=== PATIENT | female | born 1950 | race Caucasian/White ===

== ENCOUNTER 2020-09-24 10:17 | Outpatient (REF) | payer MEDICARE, SELFPAY ==
[2020-09-24 11:06] LABS: Glucose Urine UA NEG (NEG); Leukocyte Esterase Urine NEG (NEG); Nitrite Urine NEG (NEG); PH 6.5 (5.0-8.0); Specific Gravity - Urine <= 1.005 (1.005-1.025); Urine Blood NEG (NEG); Urine Ketones NEG (NEG); Urine Protein NEG (NEG-TRACE)
[2020-09-24 11:16] LABS: Appearance Urine CLOUDY; Color Urine YELLOW
== END 2020-09-24 10:18 | disposition home or self-care (01) ==
LOC: HO.LAB 10:17
PROVIDERS: PCP Internal Medicine; Visit Provider Internal Medicine
DX: Z13.89 Encounter for screening for other disorder (principal)
CPT/HCPCS: 81003

== ENCOUNTER 2020-09-24 12:41 | Emergency (ER) | payer MEDICARE, SELFPAY ==
--- NOTE | 2020-09-24 | ECG_ITS ---
Test Reason : CHEST PAIN Blood Pressure : / mmHG Vent. Rate : 081 BPM Atrial Rate : 081 BPM P-R Int : 122 ms QRS Dur : 084 ms QT Int : 374 ms P-R-T Axes : 072 064 067 degrees QTc Int : 434 ms Normal sinus rhythm Normal ECG No previous ECGs available Referred By: Pa Keller Electronically Signed By:Alvino Joseph
[2020-09-24 12:45] VITALS: BP 140/70; PULSE 80; O2SAT 100
--- NOTE | 2020-09-24 12:46 | ED_ITS ---
HPI - Chest Pain General Chief Complaint: Chest Pain <Pa Keller MD - Last Filed: 09/24/20 15:16> Stated Complaint: CP, NONRADIATING <Pa Keller MD - Last Filed: 09/24/20 15:16> Time Seen by Provider: 09/24/20 12:45 <Pa Keller MD - Last Filed: 09/24/20 15:16> Source: patient <Pa Keller MD - Last Filed: 09/24/20 15:16> Mode of arrival: EMS <Pa Keller MD - Last Filed: 09/24/20 15:16> Limitations: no limitations <Pa Keller MD - Last Filed: 09/24/20 15:16> History of Present Illness HPI narrative: patient drank 8 cup of urine to produce urine sample at the lab, she got anxious and developed chest pain <Pa Keller MD - Last Filed: 09/24/20 15:16> MD complaint: chest heaviness <Pa Keller MD - Last Filed: 09/24/20 15:16> Onset (ago): minute(s) <Pa Keller MD - Last Filed: 09/24/20 15:16> Timing of current episode: constant <Pa Keller MD - Last Filed: 09/24/20 15:16> Onset: during rest <Pa Keller MD - Last Filed: 09/24/20 15:16> Pain location: substernal <Pa Keller MD - Last Filed: 09/24/20 15:16> Pain radiation: none <Pa Keller MD - Last Filed: 09/24/20 15:16> Severity: mild <Pa Keller MD - Last Filed: 09/24/20 15:16> Quality: tightness <Pa Keller MD - Last Filed: 09/24/20 15:16> Relieving factors: nothing <Pa Keller MD - Last Filed: 09/24/20 15:16> Exacerbating factors: nothing <Pa Keller MD - Last Filed: 09/24/20 15:16> Associated symptoms: diaphoresis and other (diaphoresis) <Pa Keller MD - Last Filed: 09/24/20 15:16> Risk Factors Coronary artery disease risk factors: none <Pa Keller MD - Last Filed: 09/24/20 15:16> Related Data Home Medications: Home Medications Medication Instructions Recorded Confirmed quetiapine 50 mg PO QAM 09/24/20 09/24/20 quetiapine 100 mg PO BEDTIME 09/24/20 09/24/20 Previous Rx's Medication Instructions Recorded lorazepam 1 mg tablet 1 mg PO BID PRN 30 Days #60 tab 05/09/20 temazepam 15 mg capsule 15 mg PO BEDTIME PRN 30 Days #30 05/09/20 cap omeprazole 20 mg capsule,delayed 20 mg PO DAILY 30 Days #30 cap 08/26/20 release <Pa Keller MD - Last Filed: 09/24/20 15:16> Allergies/Adverse Reactions: Allergies Allergy/AdvReac Type Severity Reaction Status Date / Time amoxicillin [From Augmentin] AdvReac Intermediate Diarrhea Verified 09/24/20 12:50 clavulanic acid AdvReac Intermediate Diarrhea Verified 09/24/20 12:50 [From Augmentin] <Pa Keller MD - Last Filed: 09/24/20 15:16> Review of Systems Constitutional: Constitutional: Reports no additional constitutional complaints <Pa Keller MD - Last Filed: 09/24/20 15:16> Eyes: Eyes: Reports no additional eye complaints <Pa Keller MD - Last Filed: 09/24/20 15:16> ENT: Denies dizziness <Pa Keller MD - Last Filed: 09/24/20 15:16> Cardiovascular: Cardiovascular: Reports no additional cardiovascular complaints <Pa Keller MD - Last Filed: 09/24/20 15:16> Respiratory: Respiratory: Reports as per HPI <Pa Keller MD - Last Filed: 09/24/20 15:16> Gastrointestinal: Gastrointestinal: Reports no additional gastrointestinal complaints <Pa Keller MD - Last Filed: 09/24/20 15:16> Genitourinary: Genitourinary: Reports no additional female genitourinary complaints <Pa Keller MD - Last Filed: 09/24/20 15:16> Musculoskeletal: Musculoskeletal: Reports no additional musculoskeletal complaints <Pa Keller MD - Last Filed: 09/24/20 15:16> Integumentary/Breasts: Skin/Breast: Denies rash <Pa Keller MD - Last Filed: 09/24/20 15:16> Neurologic: Reports system reviewed and no additional complaints, except as documented, Denies dizziness and Denies Sensory deficit (Neuro) <Pa Keller MD - Last Filed: 09/24/20 15:16> Psychiatric: Psychiatric: Denies anxiety <Pa Keller MD - Last Filed: 09/24/20 15:16> [facility] Past Medical History Medical History: Medical History Anxiety Constipation by delayed colonic transit GERD (gastroesophageal reflux disease) Insomnia Raynauds disease UTI (urinary tract infection) Villous adenoma of colon <Pa Keller MD - Last Filed: 09/24/20 15:16> Surgical History: Surgical History History of bronchoscopy History of tonsillectomy <Pa Keller MD - Last Filed: 09/24/20 15:16> Family History Family History: Family History Father Medical history unknown Mother Dementia Alzheimers disease Brother Leukemia Sister Medical history unknown <Pa Keller MD - Last Filed: 09/24/20 15:16> Social History Social History: Social History Alcohol intake: never Smoking Status: Never smoker Use of substances other than those prescribed or required for medical reasons: No Advance Directives: No Advance Directives Information Provided: No <Pa Keller MD - Last Filed: 09/24/20 15:16> Physical Exam Vital Signs: Vital Signs: Last Vital Signs Temp 97.5 F 09/24/20 14:04 Pulse 89 09/24/20 15:50 Resp 16 09/24/20 14:04 BP 147/88 H 09/24/20 15:50 Pulse Ox 98 09/24/20 14:04 Body Mass Index 16.9 <Pa Keller MD - Last Filed: 09/24/20 15:16> Vital Signs: Last Vital Signs Temp 97.5 F 09/24/20 14:04 Pulse 89 09/24/20 15:50 Resp 16 09/24/20 14:04 BP 147/88 H 09/24/20 15:50 Pulse Ox 98 09/24/20 14:04 Body Mass Index 16.9 <Alethea Washington DO - Last Filed: 09/24/20 17:22> Const: Other: very thin anxious <Pa Keller MD - Last Filed: 09/24/20 15:16> Nutritional Appearance: thin <Pa Keller MD - Last Filed: 09/24/20 15:16> Orientation/consciousness: oriented to person and patient oriented x3 <Pa Keller MD - Last Filed: 09/24/20 15:16> Limitations: no limitations <Pa Keller MD - Last Filed: 09/24/20 15:16> HENMT: Head: Yes normal to inspection <Pa Keller MD - Last Filed: 09/24/20 15:16> Ears: external ears normal <Pa Keller MD - Last Filed: 09/24/20 15:16> General nose exam: Normal external nose present <Pa Keller MD - Last Filed: 09/24/20 15:16> Mouth: Normal oral and palatal mucosa present and oropharynx normal <Pa Keller MD - Last Filed: 09/24/20 15:16> Throat: Yes posterior oropharynx normal <Pa Keller MD - Last Filed: 09/24/20 15:16> Eyes: General: appearance normal, both eyes and all related structures <Pa Keller MD - Last Filed: 09/24/20 15:16> Neck: Other: supple <Pa Keller MD - Last Filed: 09/24/20 15:16> Neck: Yes normal visual inspection <Pa Keller MD - Last Filed: 09/24/20 15:16> Chest: Chest palpation & inspection: normal inspection of the chest <Pa Keller MD - Last Filed: 09/24/20 15:16> Resp: Auscultation: clear to auscultation bilaterally <Pa Keller MD - Last Filed: 09/24/20 15:16> Cardio: Jugular venous distension: no JVD <Pa Keller MD - Last Filed: 09/24/20 15:16> Rate: regular rate <Pa Keller MD - Last Filed: 09/24/20 15:16> Rhythm: regular rhythm <Pa Keller MD - Last Filed: 09/24/20 15:16> Heart sounds: S1 normal heart sound present and S2 normal heart sound present <Pa Keller MD - Last Filed: 09/24/20 15:16> GI: Inspection: Yes normal to inspection <Pa Keller MD - Last Filed: 09/24/20 15:16> Palpation (GI): Soft to palpation, nontender and No hepatosplenomegaly present <Pa Keller MD - Last Filed: 09/24/20 15:16> Auscultation: normal bowel sounds <Pa Keller MD - Last Filed: 09/24/20 15:16> : General: Yes no CVA tenderness <Pa Keller MD - Last Filed: 09/24/20 15:16> Back/Spine/Pelvis: Back: no CVA tenderness <Pa Keller MD - Last Filed: 09/24/20 15:16> Skin: General skin exam: no rashes or lesions noted <Pa Keller MD - Last Filed: 09/24/20 15:16> Neuro: General: oriented to person and patient oriented x3 <Pa Keller MD - Last Filed: 09/24/20 15:16> Cranial nerves: Yes CN's II-XII intact bilaterally <Pa Keller MD - Last Filed: 09/24/20 15:16> Motor exam (neuro): 5/5 motor strength present throughout <Pa Keller MD - Last Filed: 09/24/20 15:16> Sensory Exam: No Sensory deficit (Neuro) <Pa Keller MD - Last Filed: 09/24/20 15:16> Extrem: General: Yes normal to inspection <Pa Keller MD - Last Filed: 09/24/20 15:16> Psych: Appearance: grossly normal <Pa Keller MD - Last Filed: 09/24/20 15:16> Course Course Course Narrative: Upon questioning patient had hours of Chest pain, currently pain free will admit <Pa Keller MD - Last Filed: 09/24/20 15:16> 509pm likely transfer to [facility] per Dr. Joseph - start 300mg Plavix, already on heparin, ECHO showed EF 25% transfer to [facility] [address] Stevens <Alethea Washington DO - Last Filed: 09/24/20 17:22> Reevaluation(s) Reevaluation #1: Discussed with Dr. Zafar <Pa Keller MD - Last Filed: 09/24/20 15:16> Time: 15:01 <Pa Keller MD - Last Filed: 09/24/20 15:16> Reevaluation #2: Discussed with Dr Bermudez, will start heparin <Pa Keller MD - Last Filed: 09/24/20 15:16> Time: 15:15 <Pa Keller MD - Last Filed: 09/24/20 15:16> MDM - Chest Pain Lab Data Result diagrams: : 09/24/20 13:37 09/24/20 13:37 <Pa Keller MD - Last Filed: 09/24/20 15:16> Labs: Lab Results 09/24/20 09/24/20 09/24/20 Range/Units 13:14 13:14 13:14 WBC (4.8-10.8) X10*3/uL RBC (4.20-5.50) X10*6/uL Hgb (12.0-16.0) g/dl Hct (37-47) % MCV (80-98) fL MCH (27.0-33.0) pg MCHC (31.0-35.0) g/dl RDW (11.0-16.0) % Plt Count (160-400) X10*3/uL MPV (9.4-12.3) fL Immature Gran % (Auto) (0.0-0.4) % Neut % (Auto) (45-73) % Lymph % (Auto) (20-40) % Mitchell % (Auto) (2-11) % Eos % (Auto) (0-4) % Baso % (Auto) (0-2) % Lymph # (Auto) (1.2-4.9) X10*3/uL Mitchell # (Auto) (0.1-1.2) X10*3/uL Eos # (Auto) (0.0-0.4) X10*3/uL Baso # (Auto) (0.0-0.2) X10*3/uL Abs Immat Gran (auto) (0.00-0.03) X10*3/uL Absolute Neuts (auto) (2.0-8.3) X10*3/uL Absolute Nucleated RBC (0.0-0.012) X10*3/uL Nucleated RBC % (auto) (0.0-0.2) /100WBC PT (10.8-13.0) SEC INR (0.9-1.1) PTT (Heparin Protocol) (53-77.9) SEC Sodium (135-145) mmol/L Potassium (3.3-5.1) mmol/L Chloride (96-108) mmol/L Carbon Dioxide (22-29) mmol/L Anion Gap (12-20) BUN (9-16) mg/dL Creatinine (0.5-1.4) mg/dL Estim Creat Clear Calc Estimated GFR Random Glucose (60-115) mg/dL Calcium (8.4-10.2) mg/dL Troponin I High Sens (<3.5-17.0) ng/L Urine Color YELLOW Urine Appearance CLEAR Urine pH 7.5 (5.0-8.0) Ur Specific [place] 1.010 (1.005-1.025) Urine Protein NEG (NEG-TRACE) MG/DL Urine Glucose (UA) NEG (NEG) MG/DL Urine Ketones NEG (NEG) MG/DL Urine Blood NEG (NEG) Urine Nitrite NEG (NEG) Ur Leukocyte Esterase NEG (NEG) Urine Osmolality 186 L (373-1093) mosm/kg Ur Random Sodium 40.0 mmol/L COVID-19 (ADI) (Negative) COVID-19 Clin Com 09/24/20 09/24/20 09/24/20 Range/Units 13:37 13:37 13:37 WBC 6.9 (4.8-10.8) X10*3/uL RBC 3.94 L (4.20-5.50) X10*6/uL Hgb 11.9 L (12.0-16.0) g/dl Hct 35.2 L (37-47) % MCV 89.3 (80-98) fL MCH 30.2 (27.0-33.0) pg MCHC 33.8 (31.0-35.0) g/dl RDW 13.0 (11.0-16.0) % Plt Count 285 (160-400) X10*3/uL MPV 8.7 L (9.4-12.3) fL Immature Gran % (Auto) 0.4 (0.0-0.4) % Neut % (Auto) 78.2 H (45-73) % Lymph % (Auto) 13.9 L (20-40) % Mitchell % (Auto) 6.8 (2-11) % Eos % (Auto) 0.1 (0-4) % Baso % (Auto) 0.6 (0-2) % Lymph # (Auto) 1.0 L (1.2-4.9) X10*3/uL Mitchell # (Auto) 0.5 (0.1-1.2) X10*3/uL Eos # (Auto) 0.0 (0.0-0.4) X10*3/uL Baso # (Auto) 0.0 (0.0-0.2) X10*3/uL Abs Immat Gran (auto) 0.03 (0.00-0.03) X10*3/uL Absolute Neuts (auto) 5.4 (2.0-8.3) X10*3/uL Absolute Nucleated RBC 0.000 (0.0-0.012) X10*3/uL Nucleated RBC % (auto) 0.0 (0.0-0.2) /100WBC PT (10.8-13.0) SEC INR (0.9-1.1) PTT (Heparin Protocol) (53-77.9) SEC Sodium 121 L (135-145) mmol/L Potassium 4.4 (3.3-5.1) mmol/L Chloride 87 L (96-108) mmol/L Carbon Dioxide 25 (22-29) mmol/L Anion Gap 13 (12-20) BUN 15 (9-16) mg/dL Creatinine 0.68 (0.5-1.4) mg/dL Estim Creat Clear Calc 48.6 Estimated GFR > 60 Random Glucose 93 (60-115) mg/dL Calcium 9.3 (8.4-10.2) mg/dL Troponin I High Sens 416.0 H (<3.5-17.0) ng/L Urine Color Urine Appearance Urine pH (5.0-8.0) Ur Specific [place] (1.005-1.025) Urine Protein (NEG-TRACE) MG/DL Urine Glucose (UA) (NEG) MG/DL Urine Ketones (NEG) MG/DL Urine Blood (NEG) Urine Nitrite (NEG) Ur Leukocyte Esterase (NEG) Urine Osmolality (373-1093) mosm/kg Ur Random Sodium mmol/L COVID-19 (ADI) (Negative) COVID-19 Clin Com 09/24/20 09/24/20 09/24/20 Range/Units 15:29 15:29 15:29 WBC (4.8-10.8) X10*3/uL RBC (4.20-5.50) X10*6/uL Hgb (12.0-16.0) g/dl Hct (37-47) % MCV (80-98) fL MCH (27.0-33.0) pg MCHC (31.0-35.0) g/dl RDW (11.0-16.0) % Plt Count (160-400) X10*3/uL MPV (9.4-12.3) fL Immature Gran % (Auto) (0.0-0.4) % Neut % (Auto) (45-73) % Lymph % (Auto) (20-40) % Mitchell % (Auto) (2-11) % Eos % (Auto) (0-4) % Baso % (Auto) (0-2) % Lymph # (Auto) (1.2-4.9) X10*3/uL Mitchell # (Auto) (0.1-1.2) X10*3/uL Eos # (Auto) (0.0-0.4) X10*3/uL Baso # (Auto) (0.0-0.2) X10*3/uL Abs Immat Gran (auto) (0.00-0.03) X10*3/uL Absolute Neuts (auto) (2.0-8.3) X10*3/uL Absolute Nucleated RBC (0.0-0.012) X10*3/uL Nucleated RBC % (auto) (0.0-0.2) /100WBC PT 10.9 (10.8-13.0) SEC INR 0.9 (0.9-1.1) PTT (Heparin Protocol) 28.4 L (53-77.9) SEC Sodium (135-145) mmol/L Potassium (3.3-5.1) mmol/L Chloride (96-108) mmol/L Carbon Dioxide (22-29) mmol/L Anion Gap (12-20) BUN (9-16) mg/dL Creatinine (0.5-1.4) mg/dL Estim Creat Clear Calc Estimated GFR Random Glucose (60-115) mg/dL Calcium (8.4-10.2) mg/dL Troponin I High Sens 1200.1 H D (<3.5-17.0) ng/L Urine Color Urine Appearance Urine pH (5.0-8.0) Ur Specific [place] (1.005-1.025) Urine Protein (NEG-TRACE) MG/DL Urine Glucose (UA) (NEG) MG/DL Urine Ketones (NEG) MG/DL Urine Blood (NEG) Urine Nitrite (NEG) Ur Leukocyte Esterase (NEG) Urine Osmolality (373-1093) mosm/kg Ur Random Sodium mmol/L COVID-19 (ADI) Negative (Negative) COVID-19 Clin Com See Note <Pa Keller MD - Last Filed: 09/24/20 15:16> Lab Results 09/24/20 09/24/20 09/24/20 Range/Units 13:14 13:14 13:14 WBC (4.8-10.8) X10*3/uL RBC (4.20-5.50) X10*6/uL Hgb (12.0-16.0) g/dl Hct (37-47) % MCV (80-98) fL MCH (27.0-33.0) pg MCHC (31.0-35.0) g/dl RDW (11.0-16.0) % Plt Count (160-400) X10*3/uL MPV (9.4-12.3) fL Immature Gran % (Auto) (0.0-0.4) % Neut % (Auto) (45-73) % Lymph % (Auto) (20-40) % Mitchell % (Auto) (2-11) % Eos % (Auto) (0-4) % Baso % (Auto) (0-2) % Lymph # (Auto) (1.2-4.9) X10*3/uL Mitchell # (Auto) (0.1-1.2) X10*3/uL Eos # (Auto) (0.0-0.4) X10*3/uL Baso # (Auto) (0.0-0.2) X10*3/uL Abs Immat Gran (auto) (0.00-0.03) X10*3/uL Absolute Neuts (auto) (2.0-8.3) X10*3/uL Absolute Nucleated RBC (0.0-0.012) X10*3/uL Nucleated RBC % (auto) (0.0-0.2) /100WBC PT (10.8-13.0) SEC INR (0.9-1.1) PTT (Heparin Protocol) (53-77.9) SEC Sodium (135-145) mmol/L Potassium (3.3-5.1) mmol/L Chloride (96-108) mmol/L Carbon Dioxide (22-29) mmol/L Anion Gap (12-20) BUN (9-16) mg/dL Creatinine (0.5-1.4) mg/dL Estim Creat Clear Calc Estimated GFR Random Glucose (60-115) mg/dL Calcium (8.4-10.2) mg/dL Troponin I High Sens (<3.5-17.0) ng/L Urine Color YELLOW Urine Appearance CLEAR Urine pH 7.5 (5.0-8.0) Ur Specific [place] 1.010 (1.005-1.025) Urine Protein NEG (NEG-TRACE) MG/DL Urine Glucose (UA) NEG (NEG) MG/DL Urine Ketones NEG (NEG) MG/DL Urine Blood NEG (NEG) Urine Nitrite NEG (NEG) Ur Leukocyte Esterase NEG (NEG) Urine Osmolality 186 L (373-1093) mosm/kg Ur Random Sodium 40.0 mmol/L COVID-19 (ADI) (Negative) COVID-19 Clin Com 09/24/20 09/24/20 09/24/20 Range/Units 13:37 13:37 13:37 WBC 6.9 (4.8-10.8) X10*3/uL RBC 3.94 L (4.20-5.50) X10*6/uL Hgb 11.9 L (12.0-16.0) g/dl Hct 35.2 L (37-47) % MCV 89.3 (80-98) fL MCH 30.2 (27.0-33.0) pg MCHC 33.8 (31.0-35.0) g/dl RDW 13.0 (11.0-16.0) % Plt Count 285 (160-400) X10*3/uL MPV 8.7 L (9.4-12.3) fL Immature Gran % (Auto) 0.4 (0.0-0.4) % Neut % (Auto) 78.2 H (45-73) % Lymph % (Auto) 13.9 L (20-40) % Mitchell % (Auto) 6.8 (2-11) % Eos % (Auto) 0.1 (0-4) % Baso % (Auto) 0.6 (0-2) % Lymph # (Auto) 1.0 L (1.2-4.9) X10*3/uL Mitchell # (Auto) 0.5 (0.1-1.2) X10*3/uL Eos # (Auto) 0.0 (0.0-0.4) X10*3/uL Baso # (Auto) 0.0 (0.0-0.2) X10*3/uL Abs Immat Gran (auto) 0.03 (0.00-0.03) X10*3/uL Absolute Neuts (auto) 5.4 (2.0-8.3) X10*3/uL Absolute Nucleated RBC 0.000 (0.0-0.012) X10*3/uL Nucleated RBC % (auto) 0.0 (0.0-0.2) /100WBC PT (10.8-13.0) SEC INR (0.9-1.1) PTT (Heparin Protocol) (53-77.9) SEC Sodium 121 L (135-145) mmol/L Potassium 4.4 (3.3-5.1) mmol/L Chloride 87 L (96-108) mmol/L Carbon Dioxide 25 (22-29) mmol/L Anion Gap 13 (12-20) BUN 15 (9-16) mg/dL Creatinine 0.68 (0.5-1.4) mg/dL Estim Creat Clear Calc 48.6 Estimated GFR > 60 Random Glucose 93 (60-115) mg/dL Calcium 9.3 (8.4-10.2) mg/dL Troponin I High Sens 416.0 H (<3.5-17.0) ng/L Urine Color Urine Appearance Urine pH (5.0-8.0) Ur Specific [place] (1.005-1.025) Urine Protein (NEG-TRACE) MG/DL Urine Glucose (UA) (NEG) MG/DL Urine Ketones (NEG) MG/DL Urine Blood (NEG) Urine Nitrite (NEG) Ur Leukocyte Esterase (NEG) Urine Osmolality (373-1093) mosm/kg Ur Random Sodium mmol/L COVID-19 (ADI) (Negative) COVID-19 Clin Com 09/24/20 09/24/20 09/24/20 Range/Units 15:29 15:29 15:29 WBC (4.8-10.8) X10*3/uL RBC (4.20-5.50) X10*6/uL Hgb (12.0-16.0) g/dl Hct (37-47) % MCV (80-98) fL MCH (27.0-33.0) pg MCHC (31.0-35.0) g/dl RDW (11.0-16.0) % Plt Count (160-400) X10*3/uL MPV (9.4-12.3) fL Immature Gran % (Auto) (0.0-0.4) % Neut % (Auto) (45-73) % Lymph % (Auto) (20-40) % Mitchell % (Auto) (2-11) % Eos % (Auto) (0-4) % Baso % (Auto) (0-2) % Lymph # (Auto) (1.2-4.9) X10*3/uL Mitchell # (Auto) (0.1-1.2) X10*3/uL Eos # (Auto) (0.0-0.4) X10*3/uL Baso # (Auto) (0.0-0.2) X10*3/uL Abs Immat Gran (auto) (0.00-0.03) X10*3/uL Absolute Neuts (auto) (2.0-8.3) X10*3/uL Absolute Nucleated RBC (0.0-0.012) X10*3/uL Nucleated RBC % (auto) (0.0-0.2) /100WBC PT 10.9 (10.8-13.0) SEC INR 0.9 (0.9-1.1) PTT (Heparin Protocol) 28.4 L (53-77.9) SEC Sodium (135-145) mmol/L Potassium (3.3-5.1) mmol/L Chloride (96-108) mmol/L Carbon Dioxide (22-29) mmol/L Anion Gap (12-20) BUN (9-16) mg/dL Creatinine (0.5-1.4) mg/dL Estim Creat Clear Calc Estimated GFR Random Glucose (60-115) mg/dL Calcium (8.4-10.2) mg/dL Troponin I High Sens 1200.1 H D (<3.5-17.0) ng/L Urine Color Urine Appearance Urine pH (5.0-8.0) Ur Specific [place] (1.005-1.025) Urine Protein (NEG-TRACE) MG/DL Urine Glucose (UA) (NEG) MG/DL Urine Ketones (NEG) MG/DL Urine Blood (NEG) Urine Nitrite (NEG) Ur Leukocyte Esterase (NEG) Urine Osmolality (373-1093) mosm/kg Ur Random Sodium mmol/L COVID-19 (ADI) Negative (Negative) COVID-19 Clin Com See Note <Alethea Washington DO - Last Filed: 09/24/20 17:22> ECG Data ECG #1: Attestation: I personally reviewed and interpreted this ECG as follows: <Pa Keller MD - Last Filed: 09/24/20 15:16> Interpretation: normal sinus rhythm, rate 80, no st or twave changes <Pa Keller MD - Last Filed: 09/24/20 15:16> Critical Care Time Critical Care Time Attestation: I spent 40 minutes of critical care, with interventions, assessments, speaking to patient, consultants, and family. <Pa Keller MD - Last Filed: 09/24/20 15:16> Discharge Plan Discharge Clinical Impression: Non-ST elevated myocardial infarction (non-STEMI), Unstable angina pectoris <Pa Keller MD - Last Filed: 09/24/20 15:16> Patient Disposition: [facility] <Pa Keller MD - Last Filed: 09/24/20 15:16> Transfer Details: [facility] <Pa Keller MD - Last Filed: 09/24/20 15:16> [facility] <Alethea Washington DO - Last Filed: 09/24/20 17:22> Prescriptions: No Action quetiapine 50 mg tablet 100 mg PO BEDTIME RF: 0 quetiapine 50 mg tablet 50 mg PO QAM RF: 0 temazepam 15 mg capsule 15 mg PO BEDTIME PRN (Reason: sleep) 30 Days Qty: 30 RF: 5 lorazepam 1 mg tablet 1 mg PO BID PRN (Reason: anxiety) 30 Days Qty: 60 RF: 5 omeprazole 20 mg capsule,delayed release(DR/EC) 20 mg PO DAILY 30 Days Qty: 30 RF: 11 <Pa Keller MD - Last Filed: 09/24/20 15:16>
[2020-09-24 12:53] VITALS: BP 168/85; PULSE 79; RESP 18; TEMP 36.8; O2SAT 100; BMI 16.9
[2020-09-24 13:22] LABS: Glucose Urine UA NEG (NEG); Leukocyte Esterase Urine NEG (NEG); Nitrite Urine NEG (NEG); PH 7.5 (5.0-8.0); Urine Blood NEG (NEG); Urine Ketones NEG (NEG); Urine Protein NEG (NEG-TRACE)
[2020-09-24 13:24] LABS: Appearance Urine CLEAR; Color Urine YELLOW
[2020-09-24] MEDS: Magnesium Hydrox/Alum Hydrox 30 ML ORAL.SUSP PO (13:42)
[2020-09-24] MEDS: PHENobarb/Hyoscy/Atropine/Scop 10 ML ELIXIR PO (13:42)
[2020-09-24] MEDS: Lidocaine HCl Viscous 2 % 15 ML SOLUTION MUCOUS MEM (13:42)
[2020-09-24 13:46] LABS: Basophils Percent Auto 0.6 % (0-2); Eosinophils Percent Auto 0.1 % (0-4); Hematocrit 35.2 % (37-47); Hemoglobin 11.9 g/dl (12.0-16.0); Imm Gran Abs Auto 0.03 X10*3/uL (0.00-0.03); Imm Gran Pct Auto 0.4 % (0.0-0.4); Lymphocytes Percent Auto 13.9 % (20-40); MANUAL DIFF FLAG NO; Mean Corpuscular HGB Conc 33.8 g/dl (31.0-35.0); Mean Corpuscular Hemoglobin 30.2 pg (27.0-33.0); Mean Corpuscular Volume 89.3 fL (80-98); Mean Platelet Volume 8.7 fL (9.4-12.3); Monocytes Absolute Auto 0.5 X10*3/uL (0.1-1.2); Monocytes Percent Auto 6.8 % (2-11); Neutrophils Absolute Auto 5.4 X10*3/uL (2.0-8.3); Neutrophils Percent Auto 78.2 % (45-73); Platelet Count 285 X10*3/uL (160-400); Red Blood Count 3.94 X10*6/uL (4.20-5.50); White Blood Count 6.9 X10*3/uL (4.8-10.8)
[2020-09-24 14:04] VITALS: BP 126/73; PULSE 75; RESP 16; TEMP 36.4; O2SAT 98
[2020-09-24 14:20] LABS: Anion Gap 13 (12-20); Blood Urea Nitrogen 15 mg/dL (9-16); Calcium 9.3 mg/dL (8.4-10.2); Carbon Dioxide 25 mmol/L (22-29); Chloride 87 mmol/L (96-108); Creatinine Clr Calc Pharmacy 48.6; Estimated Glomerular Filt Rate > 60; Glucose Random 93 mg/dL (60-115); Potassium 4.4 mmol/L (3.3-5.1); Sodium 121 mmol/L (135-145)
[2020-09-24] MEDS: Aspirin Enteric Coated 81 MG TABLET.DR 162 MG PO (15:19)
--- NOTE | 2020-09-24 15:19 | ECG_ITS ---
Test Reason : REPEAT Blood Pressure : / mmHG Vent. Rate : 080 BPM Atrial Rate : 080 BPM P-R Int : 124 ms QRS Dur : 082 ms QT Int : 392 ms P-R-T Axes : 073 053 047 degrees QTc Int : 452 ms Normal sinus rhythm Anterior infarct , age undetermined Abnormal ECG When compared with ECG of 24-SEP-2020 12:55, T wave inversion now evident in Anterior leads Poor R wave progression Referred By: Pa Keller Electronically Signed By:Alvino Joseph
--- NOTE | 2020-09-24 15:35 | PC.NURSE ---
Second troponin, covid swab, and coags obtained. Plan to give sl nitro and re-check EKG
[2020-09-24] MEDS: LORazepam 2 MG/ML VIAL 1 MG IVPUSH (15:45)
[2020-09-24 15:50] VITALS: BP 147/88; PULSE 89
[2020-09-24] MEDS: Nitroglycerin 0.4 MG TAB.SUBL SUBLINGUAL (15:50)
--- NOTE | 2020-09-24 16:03 | P.CONCA_ITS ---
History of Present Illness History of Present Illness Date of Service: 09/24/20 Requesting physician: Pa Keller Chief complaint: CP Narrative: 69-year-old female with background history of gastroesophageal reflux disease, UTI, Mathis adenoma of colon, insomnia, anxiety, Raynaud disease and constipation. She is presenting for chest pain. She is extremely anxious right now. She had urinary tract infection recently and was given antibiotics. It appears she had some more symptoms and was advised to undergo urinalysis. She went to the laboratory and could not pee and drank multiple glasses of water. She said she was able to give a sample but on her way back she started feeling right-sided chest discomfort. She is unable to describe it but has never felt before. She is describing it as a tight feeling. She was given 2 nitroglycerin is by EMS. She denies any bleeding issues. She was given 1 more nitroglycerin while I was in the room. Her troponin 1st set is 416. Sodium is 121. Review of Systems Review of Systems: Chest pain, significantly anxious. Right-sided abdominal pain off and on. Yes all other systems are reviewed and are negative PMFSH Past Medical History Medical History Anxiety Constipation by delayed colonic transit GERD (gastroesophageal reflux disease) Insomnia Raynauds disease UTI (urinary tract infection) Villous adenoma of colon Family History Family History Father Medical history unknown Mother Dementia Alzheimers disease Brother Leukemia Sister Medical history unknown Surgical History Surgical History History of bronchoscopy History of tonsillectomy Social History Social History Alcohol intake: never Smoking Status: Never smoker Use of substances other than those prescribed or required for medical reasons: No Advance Directives: No Advance Directives Information Provided: No Meds Allergies Allergy/AdvReac Type Severity Reaction Status Date / Time amoxicillin [From Augmentin] AdvReac Intermediate Diarrhea Verified 09/24/20 12:50 clavulanic acid AdvReac Intermediate Diarrhea Verified 09/24/20 12:50 [From Augmentin] Active Medications: Current Medications Generic Name Dose Route Start Last Admin Trade Name Freq PRN Reason Stop Dose Admin Heparin Sodium (Porcine) 1,600 unit 09/24/20 15:11 Heparin Sodium,Porcine 5,000 Unit/Ml Vial 40 unit/kg (1600 unit) IVPUSH BOLUS PRN 40 unit/kg - Heparin Protocol Heparin Sodium (Porcine) 3,200 unit 09/24/20 15:11 Heparin Sodium,Porcine 5,000 Unit/Ml Vial 80 unit/kg (3200 unit) IVPUSH BOLUS PRN 80 unit/kg - Heparin Protocol Heparin Sodium/Sodium Chloride 25,000 unit in 250 mls @ 0 mls/hr 09/24/20 15:15 IVCONT .Q0M DEEPALI Protocol Per Protocol Nitroglycerin 0.4 mg 09/24/20 15:19 09/24/20 15:50 Nitroglycerin 0.4 Mg Tab.Subl SUBLINGUAL 0.4 mg [id number] PRN Administration Chest Pain Pharmacy Consult 1 each 09/24/20 14:59 Consult Rx Perform Med Rec MISCELLANE ONCE PRN Consult order Home Medications Medication Instructions Recorded Confirmed Last Taken Type quetiapine 50 mg PO QAM 09/24/20 09/24/20 Unknown History quetiapine 100 mg PO BEDTIME 09/24/20 09/24/20 Unknown History Physical Exam Vital Signs: Vital Signs: Last Vital Signs Temp 97.5 F 09/24/20 14:04 Pulse 89 09/24/20 15:50 Resp 16 09/24/20 14:04 BP 147/88 H 09/24/20 15:50 Pulse Ox 98 09/24/20 14:04 Body Mass Index 16.9 GENERAL APPEARANCE: Thin. HEENT: unremarkable. HEAD: normocephalic, atraumatic. NECK/THYROID: no carotid bruit, no jugular venous distention. SKIN: no suspicious lesions, warm and dry. HEART: no murmurs, regular rate and rhythm, S1, S2 normal. LUNGS: clear to auscultation bilaterally. ABDOMEN: normal, bowel sounds present, soft, nontender, nondistended. EXTREMITIES: no clubbing, cyanosis, or edema. PERIPHERAL PULSES: equal. NEUROLOGIC: nonfocal, alert and oriented. PSYCH: Extremely anxious. Results Labs and Meds Result diagrams: 09/24/20 13:37 09/24/20 13:37 Lab results: Laboratory Results - last 24 hr 0409/24/20 09/24/20 13:14 13:37 13:37 WBC 6.9 RBC 3.94 L Hgb 11.9 L Hct 35.2 L MCV 89.3 MCH 30.2 MCHC 33.8 RDW 13.0 Plt Count 285 MPV 8.7 L Immature Gran % (Auto) 0.4 Neut % (Auto) 78.2 H Lymph % (Auto) 13.9 L [place] % (Auto) 6.8 Eos % (Auto) 0.1 Baso % (Auto) 0.6 Lymph # (Auto) 1.0 L [place] # (Auto) 0.5 Eos # (Auto) 0.0 Baso # (Auto) 0.0 Abs Immat Gran (auto) 0.03 Absolute Neuts (auto) 5.4 Absolute Nucleated RBC 0.000 Nucleated RBC % (auto) 0.0 Sodium 121 L Potassium 4.4 Chloride 87 L Carbon Dioxide 25 Anion Gap 13 BUN 15 Creatinine 0.68 Estim Creat Clear Calc 48.6 Estimated GFR > 60 Random Glucose 93 Calcium 9.3 Troponin I High Sens Urine Color YELLOW Urine Appearance CLEAR Urine pH 7.5 Ur Specific [place] 1.010 Urine Protein NEG Urine Glucose (UA) NEG Urine Ketones NEG Urine Blood NEG Urine Nitrite NEG Ur Leukocyte Esterase NEG 09/24/20 13:37 WBC RBC Hgb Hct MCV MCH MCHC RDW Plt Count MPV Immature Gran % (Auto) Neut % (Auto) Lymph % (Auto) [place] % (Auto) Eos % (Auto) Baso % (Auto) Lymph # (Auto) [place] # (Auto) Eos # (Auto) Baso # (Auto) Abs Immat Gran (auto) Absolute Neuts (auto) Absolute Nucleated RBC Nucleated RBC % (auto) Sodium Potassium Chloride Carbon Dioxide Anion Gap BUN Creatinine Estim Creat Clear Calc Estimated GFR Random Glucose Calcium Troponin I High Sens 416.0 H Urine Color Urine Appearance Urine pH Ur Specific [place] Urine Protein Urine Glucose (UA) Urine Ketones Urine Blood Urine Nitrite Ur Leukocyte Esterase Assessment and Plan (1) Non-ST elevated myocardial infarction (non-STEMI): Status: Acute (2) Chest pain: Status: Acute 69-year-old female with anxiety disorder and gastroesophageal reflux disease presenting right-sided chest discomfort. Her 1st set of troponin 416. ECG is completely unremarkable. She is extremely anxious right now. She was given nitroglycerin and will see how she responds to that. We will check another set of troponin level on her. Will check a stat echocardiogram to assess wall motion abnormality. If with ongoing pain if her echocardiogram is completely normal or her troponin levels do not rise despite having persistent discomfort for 3 hours I think it is unlikely that she has acute coronary syndrome. Her presentation is difficult to assess because of significant anxiety. Please give her some Ativan. We will follow along with you. As echocardiogram is done we will comment about further management. Thank you for allowing me to participate in the care of your patient. Please feel free to contact me if you have any questions.
[2020-09-24 16:04] LABS: INTERNATIONAL NORM RATIO 0.9 (0.9-1.1); Prothrombin Time 10.9 SEC (10.8-13.0)
[2020-09-24 16:06] LABS: COVID-19 Test Negative (Negative)
[2020-09-24 16:07] LABS: PTT Heparin Drip 28.4 SEC (53-77.9)
[2020-09-24 16:39] LABS: Troponin-I High Sensitivity 1200.1 ng/L (<3.5-17.0)
[2020-09-24 16:42] LABS: Osmolality Urine 186 mosm/kg (373-1093)
[2020-09-24] MEDS: Clopidogrel Bisulfate 300 MG TABLET PO (17:22)
[2020-09-24] MEDS: Heparin Sodium,Porcine/1/2NS 25,000 UNIT/250 ML IV.SOLN 4.87 UNIT IVCONT (17:25)
--- NOTE | 2020-09-24 17:27 | PC.NURSE ---
Pt started on heparin drip at 12 units/kg /hr per verbal instruction of despite current order for 14u/kg/hr. Pt being transferred STAT to [facility] carpenter/labor at this time.
[2020-09-24 17:31] VITALS: BP 134/81; PULSE 84; RESP 18; O2SAT 98
--- NOTE | 2020-09-24 17:46 | PC.NURSE ---
Report given to EMS and laboratory manager RN. [place] [facility] [place] 1745.
--- NOTE | 2020-09-24 18:00 | CA_ITS ---
Transthoracic Echocardiogram Patient (Last, First, Middle): Lisa Edward L Gender: Female Date of : 1950 Age: 69 Procedure Date: 09/24/2020 Procedure Type: Transthoracic Echocardiogram Location: ER Height: 154.94 cm Weight: 40.37 kg BSA: 1.34 m2 Heart Rate: bpm BP: 129 / 78 mmHg Class A Lineman: Referring MD: Alvino Joseph MD Symptoms: nstemi, assess RWMA Study Quality: Good ECG Rhythm: Sinus Conclusions: - Normal left ventricular cavity size. - The left ventricular systolic function is moderate to severely decreased. The visually estimated ejection fraction is between 25-30%. - The inferoseptal wall, the apical anterior, basal inferior, mid inferior, and apical septum segments are akinetic. - The left atrium is mildly dilated. Findings Left Ventricle Normal left ventricular cavity size. There is normal left ventricular wall thickness. The left ventricular systolic function is moderate to severely decreased. The visually estimated ejection fraction is between 25-30%. Abnormal diastolic function is noted. Spectral Doppler is indicative of a pseudonormal filling pattern. E/E prime ratio is between 8 and 15 consistent with indeterminate filling pressures. Wall Motion Rest Echo Findings The inferoseptal wall, the apical anterior, basal inferior, mid inferior, and apical septum segments are akinetic. Right Ventricle Normal right ventricular cavity size and systolic function. Atria The left atrium is mildly dilated. Aortic Valve The aortic valve was not well visualized. There is no aortic valve stenosis. There is no aortic valve regurgitation. Mitral Valve The mitral valve appears normal. There is trace mitral valve regurgitation. There is no mitral valve stenosis. Pulmonic Valve The pulmonic valve is likely normal. Tricuspid Valve Normal tricuspid valve structure and function. There is trace tricuspid valve regurgitation. Tricuspid regurgitation envelope is inadequate for calculation of right ventricular systolic pressure. Indeterminate right atrial pressure. Great Vessels All visible segments of the aorta are normal in size. The pulmonary artery was not well visualized. Venous The inferior vena cava was not well visualized. Pericardium/Pleural There is no evidence of pericardial effusion. Prior Study Comparison No prior study available for comparison. Measurements 2D Linear Measurements IVSd: 0.87 0.6-0.9/0.6-1.0 cm LVIDd: 4.31 3.9-5.3/4.2-5.9 cm LVIDd Index: 3.22 2.4-3.2/2.2-3.1 cm/m2 LVIDs: 3.75 2.0-3.6 cm LVPWd: 0.88 0.7-1.1 cm Ao Root: 2.70 2.1-3.5 cm LA Diam: 3.80 2.7-3.8/3.0-4.0 cm LAIDs Index: 2.84 1.5-2.3 cm/m2 LV Mass: 147.95 67-162/88-224 g LV Mass Index: 110.41 43-95/49-115 g/m2 LVOT Diam: 1.90 3.0+(-)1.3 cm 2D Systolic Function EF 4C: 22.50 >55% EF 2C: 25.80 >55% EF BiP: 24.50 >55% Mitral Valve MV Pk E: 0.88 MV PK A: 0.51 MV Decel Time: 155.00 E/A: 1.70 E'Lateral: 8.99 E'Medial: 47.40 E/E' Med: 1.90 E/E' Lat: 9.80 PHT: 45.00 MVA PHT: 4.89 Decel Harney: 5.67 Aortic Valve AoV Pk Abiodun: 0.86 AoV Mn Abiodun: 0.72 AoV VTI: 0.29 AoV Pk Grad: 3.00 Aov Mn Grad: 3.00 SHANTI Cont.VTI: 1.32 LVOT LVOT Pk Abiodun: 0.63 LVOT Mn Abiodun: 0.39 LVOT VTI: 0.13 LVOT Pk Grad: 2.00 LVOT Mn Grad: 1.00 LVOT Diam: 1.90 LVOT Area: 2.84 Diastolic Function MV Pk E: 0.88 MV Pk A: 0.51 E/A: 1.70 E'Medial: 47.40 E/E' Med: 1.90 E' Laterial: 8.99 E/E' Lat: 9.80 Tricuspid Valve TR Pk Abiodun: 2.86 TR Pk Grad: 33.00 RA Press: 3.00 RVSP: 36.00 Great Vessels Aorta Ao Root-2D: 2.70 2.0-3.7 cm Pulmonary Valve PV Pk Abiodun: 0.92 Peak PV Grad: 3.00 Updated in Other Vendor System with Status of Final Alvino Joseph MD electronically signed on 09/24/2020 5:02:08 PM with status of Final
[2020-09-24 18:14] LABS: Troponin-I High Sensitivity 1361.1 ng/L (<3.5-17.0)
== END 2020-09-24 17:46 | disposition short-term general hospital (02) ==
PROVIDERS: Emergency Medicine; Family Medicine; Emergency Provider Emergency Medicine; PCP Internal Medicine
DX: I21.4 Non-ST elevation (NSTEMI) myocardial infarction (principal); I20.0 Unstable angina; R07.9 Chest pain, unspecified; R00.0 Tachycardia, unspecified; Z20.822 Contact with and (suspected) exposure to COVID-19; F41.9 Anxiety disorder, unspecified; K21.9 Gastro-esophageal reflux disease without esophagitis; Z87.440 Personal history of urinary (tract) infections
CPT/HCPCS: 36415; 80048; 81003; 83935; 84300; 84484; 85025; 85610; 85730; 87635; 93005; 93306; 96374; 96375; 99285; 99291; J2060

== ENCOUNTER 2020-09-30 09:26 | Emergency (ER) | payer MEDICARE, SELFPAY ==
--- NOTE | ~2020-09-30 | XR_ITS ---
EXAMINATION: XR CHEST CLINICAL INFORMATION: Chills. Assess for pneumonia COMPARISON: Chest radiographs 02/16/2012 TECHNIQUE: Portable upright AP view of the chest was obtained. FINDINGS: Patient slightly rotated. The lungs are clear. There is no airspace consolidation or focal groundglass opacity. No pleural reaction or effusion. There are small stable calcified granulomata bilateral upper zones similar to prior chest radiograph 2012. The costophrenic sulci are clear. The heart is normal in size. The hilar and mediastinal contours are unremarkable. The vascularity is normal. Again, there is prominent thoracic and thoracolumbar curvature thoracic spine. XR/XR chest 1V IMPRESSION: No acute intrathoracic disease.
[2020-09-30 09:46] VITALS: BP 159/76; PULSE 86; RESP 18; TEMP 37.1; O2SAT 99; BMI 17.4
--- NOTE | 2020-09-30 10:14 | ED.GENADULT ---
HPI - General Adult General Chief complaint: General Medical Stated complaint: infection Time Seen by Provider: 09/30/20 09:46 Source: patient and old records reviewed Mode of arrival: ambulatory Limitations: no limitations History of Present Illness HPI narrative: 69 yo female with hx of cardiomyopathy (newly dx at [facility] [place] there on 09/24 for elevated troponins states no stent was told it was due to her correction seroquel and temazepam) comes in c/o insomnia since DC on wednesday [place] [facility] [place] states they had her on 15mg ambien but only sent her out on 10mg she also noted some sweats at night so she was worried her cath site was infected though no rash/drainage or increased pain at the site MD complaint: night sweats Onset (ago): day(s) (last night) Severity: mild Pain Consistency: now resolved Relieving factors: none Exacerbating factors: none Associated symptoms: other (sweats, insomnia, anxiety ) Treatments prior to arrival: none Related Data Home Medications Medication Instructions Recorded Confirmed quetiapine 50 mg PO QAM 09/24/20 09/24/20 quetiapine 100 mg PO BEDTIME 09/24/20 09/24/20 Previous Rx's Medication Instructions Recorded lorazepam 1 mg tablet 1 mg PO BID PRN 30 Days #60 tab 05/09/20 temazepam 15 mg capsule 15 mg PO BEDTIME PRN 30 Days #30 05/09/20 cap omeprazole 20 mg capsule,delayed 20 mg PO DAILY 30 Days #30 cap 08/26/20 release zolpidem [Ambien] 5 mg PO BEDTIME PRN #8 tab 09/30/20 Allergies Allergy/AdvReac Type Severity Reaction Status Date / Time amoxicillin [From Augmentin] AdvReac Intermediate Diarrhea Verified 09/24/20 12:50 clavulanic acid AdvReac Intermediate Diarrhea Verified 09/24/20 12:50 [From Augmentin] Review of Systems Review of Systems: Constitutional : No Weight loss, No Fever, No Chills, No Fatigue, No Malaise, pos sweats ENT/Mouth : No sore throat, No Rhinorrhea Eyes: No Eye Pain, No Swelling, No Redness Cardiovascular : No Chest Pain, No SOB, No Dyspnea on Exertion, No Orthopnea, No Edema, No Palpitations Respiratory : No Cough, No Sputum, No Wheezing Gastrointestinal : No Nausea, No Vomiting, No Diarrhea, No Constipation, No abdominal Pain, No Hematochezia, No Melena Genitourinary : No Dysuria, No Urinary Frequency, No Hematuria, Musculoskeletal : No joint pain, No Myalgias, No Joint Swelling Skin : No Skin Lesions, No rash Neuro : No Weakness, No Numbness, No Dizziness, No Headache Psych : pos Anxiety/Panic, No Depression, pos insomnia Heme/Lymph: No Bruising, No Bleeding,No Lymphadenopathy Endocrine : No Polyuria, No Polydipsia All other systems reviewed and are negative [facility] Past Medical History Attestation statement: The following information was validated with the patient. Medical History Anxiety Constipation by delayed colonic transit GERD (gastroesophageal reflux disease) Insomnia Raynauds disease UTI (urinary tract infection) Villous adenoma of colon Surgical History History of bronchoscopy History of tonsillectomy Family History Family History Father Medical history unknown Mother Dementia Alzheimers disease Brother Leukemia Sister Medical history unknown Social History Social History Alcohol intake: never Smoking Status: Never smoker Advance Directives: No Advance Directives Information Provided: No Physical Exam Vital Signs: Vital Signs: Last Vital Signs Temp 98.8 F 09/30/20 09:46 Pulse 86 09/30/20 09:46 Resp 18 09/30/20 09:46 BP 159/76 H 09/30/20 09:46 Pulse Ox 99 09/30/20 09:46 Body Mass Index 17.4 Appearance: Alert. Oriented X3. No acute distress. Eyes: Pupils equal, round and reactive to light. ENT: Pharynx normal. Neck: Normal inspection. Neck supple. CVS: Normal heart rate and rhythm. Pulses normal. Respiratory: No respiratory distress. Breath sounds normal. Abdomen: Soft and nontender. R groin no thrill no hematoma no erythema/warmth or fluctuance, distal NV intact Skin: Skin warm and dry. Normal skin color. Normal skin turgor. Extremities: No lower extremity edema. No calf ttp Neuro: Oriented X 3. No motor deficit. No sensory deficit. Course Course Course Narrative: no signs of infection chronically low Na Medical Decision Making MDM Narrative Medical decision making narrative: 69 yo female with recent med changes due to findings of cardiomyopathy here with insomnia due to med changes - I will likely increase her to 15mg daily of ambien as that's what she was taking in the hospital she c/o sweats worried about infection but her cath site is not infected, UA and basic labs, CXR ordered. if negative stable for DC Lab Data Result diagrams: 09/30/20 10:22 09/30/20 10:22 Labs: Lab Results 09/30/20 09/30/20 09/30/20 Range/Units 10:22 10:22 10:56 WBC 8.2 (4.8-10.8) X10*3/uL RBC 4.10 L (4.20-5.50) X10*6/uL Hgb 12.7 (12.0-16.0) g/dl Hct 37.4 (37-47) % MCV 91.2 (80-98) fL MCH 31.0 (27.0-33.0) pg MCHC 34.0 (31.0-35.0) g/dl RDW 13.4 (11.0-16.0) % Plt Count 324 (160-400) X10*3/uL MPV 9.1 L (9.4-12.3) fL Immature Gran % (Auto) 0.2 (0.0-0.4) % Neut % (Auto) 77.9 H (45-73) % Lymph % (Auto) 12.4 L (20-40) % [place] % (Auto) 8.8 (2-11) % Eos % (Auto) 0.1 (0-4) % Baso % (Auto) 0.6 (0-2) % Lymph # (Auto) 1.0 L (1.2-4.9) X10*3/uL [place] # (Auto) 0.7 (0.1-1.2) X10*3/uL Eos # (Auto) 0.0 (0.0-0.4) X10*3/uL Baso # (Auto) 0.1 (0.0-0.2) X10*3/uL Abs Immat Gran (auto) 0.02 (0.00-0.03) X10*3/uL Absolute Neuts (auto) 6.3 (2.0-8.3) X10*3/uL Absolute Nucleated RBC 0.000 (0.0-0.012) X10*3/uL Nucleated RBC % (auto) 0.0 (0.0-0.2) /100WBC Sodium 130 L (135-145) mmol/L Potassium 3.9 (3.3-5.1) mmol/L Chloride 93 L (96-108) mmol/L Carbon Dioxide 24 (22-29) mmol/L Anion Gap 17 (12-20) BUN 19 H (9-16) mg/dL Creatinine 0.82 (0.5-1.4) mg/dL Estim Creat Clear Calc 41.7 Estimated GFR > 60 Random Glucose 99 (60-115) mg/dL Calcium 10.4 H D (8.4-10.2) mg/dL Urine Color YELLOW Urine Appearance HAZY Urine pH 6.5 (5.0-8.0) Ur Specific [place] 1.010 (1.005-1.025) Urine Protein NEG (NEG-TRACE) MG/DL Urine Glucose (UA) NEG (NEG) MG/DL Urine Ketones NEG (NEG) MG/DL Urine Blood TRACE (NEG) Urine Nitrite NEG (NEG) Ur Leukocyte Esterase TRACE H (NEG) Urine RBC 0-2 (0) /HPF Urine WBC 0-2 (0-4) /HPF Ur Squamous Epith Cells NONE /LPF Calcium Oxalate Crystal TRACE /LPF Urine Bacteria NONE /LPF Discharge Plan Discharge Clinical Impression: Insomnia Qualifiers: Insomnia type: unspecified Qualified Code(s): G47.00 - Insomnia, unspecified Patient Disposition: Home, Self-Care Instructions: Insomnia (ED) Additional Instructions: return to ED for any worsening symptoms or concerns Prescriptions: New zolpidem [Ambien] 5 mg tablet 5 mg PO BEDTIME PRN (Reason: insomnia) Qty: 8 RF: 0 No Action quetiapine 50 mg tablet 100 mg PO BEDTIME RF: 0 quetiapine 50 mg tablet 50 mg PO QAM RF: 0 temazepam 15 mg capsule 15 mg PO BEDTIME PRN (Reason: sleep) 30 Days Qty: 30 RF: 5 lorazepam 1 mg tablet 1 mg PO BID PRN (Reason: anxiety) 30 Days Qty: 60 RF: 5 omeprazole 20 mg capsule,delayed release(DR/EC) 20 mg PO DAILY 30 Days Qty: 30 RF: 11 Referrals: Aniyah Smith MD [Primary Care Provider] - 2 days (keep scheduled appointment on the )
[2020-09-30 10:26] LABS: MANUAL DIFF FLAG NO
[2020-09-30 10:28] LABS: Basophils Absolute Auto 0.1 X10*3/uL (0.0-0.2); Basophils Percent Auto 0.6 % (0-2); Eosinophils Percent Auto 0.1 % (0-4); Hematocrit 37.4 % (37-47); Hemoglobin 12.7 g/dl (12.0-16.0); Imm Gran Abs Auto 0.02 X10*3/uL (0.00-0.03); Imm Gran Pct Auto 0.2 % (0.0-0.4); Lymphocytes Percent Auto 12.4 % (20-40); Mean Corpuscular Volume 91.2 fL (80-98); Mean Platelet Volume 9.1 fL (9.4-12.3); Monocytes Absolute Auto 0.7 X10*3/uL (0.1-1.2); Monocytes Percent Auto 8.8 % (2-11); Neutrophils Absolute Auto 6.3 X10*3/uL (2.0-8.3); Neutrophils Percent Auto 77.9 % (45-73); Platelet Count 324 X10*3/uL (160-400); Red Cell Distribution Width 13.4 % (11.0-16.0); White Blood Count 8.2 X10*3/uL (4.8-10.8)
[2020-09-30 10:50] LABS: Anion Gap 17 (12-20); Blood Urea Nitrogen 19 mg/dL (9-16); Calcium 10.4 mg/dL (8.4-10.2); Carbon Dioxide 24 mmol/L (22-29); Chloride 93 mmol/L (96-108); Creatinine Clr Calc Pharmacy 41.7; Estimated Glomerular Filt Rate > 60; Glucose Random 99 mg/dL (60-115); Potassium 3.9 mmol/L (3.3-5.1); Sodium 130 mmol/L (135-145)
[2020-09-30 11:09] LABS: Glucose Urine UA NEG (NEG); Leukocyte Esterase Urine TRACE (NEG); Nitrite Urine NEG (NEG); PH 6.5 (5.0-8.0); UACC Culture Trigger YES; Urine Blood TRACE (NEG); Urine Ketones NEG (NEG); Urine Protein NEG (NEG-TRACE)
[2020-09-30 11:15] LABS: Appearance Urine HAZY; Color Urine YELLOW
[2020-09-30 11:24] LABS: Calcium Oxalate Crystals Urine TRACE /LPF; RBC Urine 0-2 /HPF (0); WBC Urine 0-2 /HPF (0-4)
== END 2020-09-30 12:08 | disposition home or self-care (01) ==
PROVIDERS: Emergency Provider Emergency Medicine; PCP Internal Medicine
DX: G47.00 Insomnia, unspecified (principal); R30.0 Dysuria; R77.8 Other specified abnormalities of plasma proteins; R61 Generalized hyperhidrosis; F41.1 Generalized anxiety disorder; F43.0 Acute stress reaction; Z79.899 Other long term (current) drug therapy
CPT/HCPCS: 36415; 51702; 71045; 80048; 81001; 81003; 85025; 87086; 99283

== ENCOUNTER 2020-10-04 16:30 | Emergency (ER) | payer MEDICARE, SELFPAY ==
[2020-10-04 16:40] VITALS: BP 148/80; BP 163/75; PULSE 69; RESP 16; TEMP 36.7; O2SAT 100; O2SAT 99; BMI 16.2
--- NOTE | 2020-10-04 16:56 | ECG_ITS ---
Test Reason : ANXIETY Blood Pressure : / mmHG Vent. Rate : 066 BPM Atrial Rate : 066 BPM P-R Int : 114 ms QRS Dur : 088 ms QT Int : 428 ms P-R-T Axes : 065 049 045 degrees QTc Int : 448 ms Normal sinus rhythm Normal ECG When compared with ECG of 24-SEP-2020 16:52, No significant change was found Referred By: Yazan Mesa Electronically Signed By:RAISSA SMITH MD
--- NOTE | 2020-10-04 16:56 | ED_ITS ---
HPI - Chest Pain General Chief Complaint: Chest Pain Stated Complaint: chest pain Time Seen by Provider: 10/04/20 16:56 Source: patient Mode of arrival: ambulatory Limitations: no limitations History of Present Illness HPI narrative: Patient with anxiety came here on 09/24 and transferred to [facility] for chest pain and had cardiac catheterization done which was negative came here again on 09/30 for nonspecific complaints now comes here again for 3 or 4 loose bowels yesterday right-sided chest wall pain feeling weak and anxious patient take lorazepam for anxiety coming here with multiple non specific complaints denies any depression no vomiting or nausea Related Data Home Medications Medication Instructions Recorded Confirmed quetiapine 50 mg PO QAM 09/24/20 09/24/20 quetiapine 100 mg PO BEDTIME 09/24/20 09/24/20 Previous Rx's Medication Instructions Recorded lorazepam 1 mg tablet 1 mg PO BID PRN 30 Days #60 tab 05/09/20 temazepam 15 mg capsule 15 mg PO BEDTIME PRN 30 Days #30 05/09/20 cap omeprazole 20 mg capsule,delayed 20 mg PO DAILY 30 Days #30 cap 08/26/20 release zolpidem [Ambien] 5 mg PO BEDTIME PRN #8 tab 09/30/20 Allergies Allergy/AdvReac Type Severity Reaction Status Date / Time amoxicillin [From Augmentin] AdvReac Intermediate Diarrhea Verified 09/24/20 12:50 clavulanic acid AdvReac Intermediate Diarrhea Verified 09/24/20 12:50 [From Augmentin] Review of Systems Review of Systems: Constitutional : No Weight loss, No Fever, No Chills ENT/Mouth : No sore throat, No Rhinorrhea Eyes: No Eye Pain, No Swelling Cardiovascular : No Chest Pain, no palpitations Respiratory : No Cough, No Sputum, no shortness of breath Gastrointestinal : no Nausea, No Vomiting, + Diarrhea, No abdominal Pain, no black stools Genitourinary : No Dysuria, No Urinary Frequency Musculoskeletal : No joint pain, No Myalgias, No Joint Swelling Skin : No Skin Lesions, No rash Neuro : No Weakness, No Numbness, No Dizziness, No Headache Psych : No Anxiety/Panic, No Depression Heme/Lymph: No Bruising, No Lymphadenopathy Endocrine : No Polyuria, No Polydipsia All other systems reviewed and are negative PMFSH Past Medical History Medical History Anxiety Constipation by delayed colonic transit GERD (gastroesophageal reflux disease) Insomnia Raynauds disease UTI (urinary tract infection) Villous adenoma of colon Surgical History History of bronchoscopy History of tonsillectomy Family History Family History Father Medical history unknown Mother Dementia Alzheimers disease Brother Leukemia Sister Medical history unknown Social History Social History Alcohol intake: never Smoking Status: Never smoker Use of substances other than those prescribed or required for medical reasons: No Advance Directives: No Advance Directives Information Provided: Yes Physical Exam Vital Signs: Vital Signs: Last Vital Signs Temp 97.9 F 10/04/20 18:05 Pulse 66 10/04/20 18:05 Resp 20 10/04/20 18:05 BP 131/70 10/04/20 18:05 Pulse Ox 96 10/04/20 18:05 Body Mass Index 16.2 Appearance: Alert. Oriented X3. No acute distress. Thin emaciated patient, very anxious Eyes: PERRLA, No Nystagmus ENT: Pharynx normal. Oral Mucosa moist Neck: Normal inspection. Neck supple. CVS: Normal heart rate and rhythm. Pulses normal. Right chest wall tenderness Respiratory: No respiratory distress. Equal air entry bilateral, no wheezing/r ales/rhonchi Abdomen: Soft and nontender. Bowel sounds are present, no mass palpable, no CVA tenderness Skin: Skin warm and dry. Normal skin color. Normal skin turgor. Extremities: No lower extremity edema. No calf tenderness Neuro: Oriented X 3. No motor deficit. No sensory deficit.No cerebellar signs , cranial nerves II-XII intact MDM - Chest Pain MDM Narrative Medical decision making narrative: Patient with increased anxiety with recent cardiac catheterization negative feels anxious with multiple complaints patient felt better after lorazepam had p.o. fluids in the ER Lab Data Attestation: I reviewed the patient's lab results. Result diagrams: 10/04/20 17:29 10/04/20 17:29 Labs: Lab Results 10/04/20 10/04/20 Range/Units 17:29 17:29 WBC 8.0 (4.8-10.8) X10*3/uL RBC 3.60 L (4.20-5.50) X10*6/uL Hgb 11.1 L (12.0-16.0) g/dl Hct 33.1 L (37-47) % MCV 91.9 (80-98) fL MCH 30.8 (27.0-33.0) pg MCHC 33.5 (31.0-35.0) g/dl RDW 13.5 (11.0-16.0) % Plt Count 303 (160-400) X10*3/uL MPV 9.1 L (9.4-12.3) fL Immature Gran % (Auto) 0.2 (0.0-0.4) % Neut % (Auto) 68.6 (45-73) % Lymph % (Auto) 20.3 (20-40) % [place] % (Auto) 10.1 (2-11) % Eos % (Auto) 0.4 (0-4) % Baso % (Auto) 0.4 (0-2) % Lymph # (Auto) 1.6 (1.2-4.9) X10*3/uL [place] # (Auto) 0.8 (0.1-1.2) X10*3/uL Eos # (Auto) 0.0 (0.0-0.4) X10*3/uL Baso # (Auto) 0.0 (0.0-0.2) X10*3/uL Abs Immat Gran (auto) 0.02 (0.00-0.03) X10*3/uL Absolute Neuts (auto) 5.5 (2.0-8.3) X10*3/uL Absolute Nucleated RBC 0.000 (0.0-0.012) X10*3/uL Nucleated RBC % (auto) 0.0 (0.0-0.2) /100WBC Sodium 127 L (135-145) mmol/L Potassium 3.8 (3.3-5.1) mmol/L Chloride 90 L (96-108) mmol/L Carbon Dioxide 28 (22-29) mmol/L Anion Gap 13 (12-20) BUN 16 (9-16) mg/dL Creatinine 0.76 (0.5-1.4) mg/dL Estim Creat Clear Calc 41.7 Estimated GFR > 60 Random Glucose 111 (60-115) mg/dL Calcium 9.5 D (8.4-10.2) mg/dL Discharge Plan Discharge Clinical Impression: Anxiety Patient Disposition: Home, Self-Care Instructions: Anxiety (ED) Additional Instructions: Continue medications as prescribed. Drink plenty of fluids And eat well Follow up with PCP Prescriptions: No Action quetiapine 50 mg tablet 100 mg PO BEDTIME RF: 0 quetiapine 50 mg tablet 50 mg PO QAM RF: 0 zolpidem [Ambien] 5 mg tablet 5 mg PO BEDTIME PRN (Reason: insomnia) Qty: 8 RF: 0 temazepam 15 mg capsule 15 mg PO BEDTIME PRN (Reason: sleep) 30 Days Qty: 30 RF: 5 lorazepam 1 mg tablet 1 mg PO BID PRN (Reason: anxiety) 30 Days Qty: 60 RF: 5 omeprazole 20 mg capsule,delayed release(DR/EC) 20 mg PO DAILY 30 Days Qty: 30 RF: 11 Interventions: ED Discharge Assessment Last Done: 10/04/20 19:25 Discharge Date/Time: 10/04/20 19:26
[2020-10-04 17:34] LABS: MANUAL DIFF FLAG NO
[2020-10-04 17:39] LABS: Basophils Percent Auto 0.4 % (0-2); Eosinophils Percent Auto 0.4 % (0-4); Hematocrit 33.1 % (37-47); Hemoglobin 11.1 g/dl (12.0-16.0); Imm Gran Abs Auto 0.02 X10*3/uL (0.00-0.03); Imm Gran Pct Auto 0.2 % (0.0-0.4); Lymphocytes Absolute Auto 1.6 X10*3/uL (1.2-4.9); Lymphocytes Percent Auto 20.3 % (20-40); Mean Corpuscular HGB Conc 33.5 g/dl (31.0-35.0); Mean Corpuscular Hemoglobin 30.8 pg (27.0-33.0); Mean Corpuscular Volume 91.9 fL (80-98); Mean Platelet Volume 9.1 fL (9.4-12.3); Monocytes Absolute Auto 0.8 X10*3/uL (0.1-1.2); Monocytes Percent Auto 10.1 % (2-11); Neutrophils Absolute Auto 5.5 X10*3/uL (2.0-8.3); Neutrophils Percent Auto 68.6 % (45-73); Platelet Count 303 X10*3/uL (160-400); Red Cell Distribution Width 13.5 % (11.0-16.0)
[2020-10-04 18:05] VITALS: BP 131/70; PULSE 66; RESP 20; TEMP 36.6; O2SAT 96
[2020-10-04 18:06] LABS: Anion Gap 13 (12-20); Blood Urea Nitrogen 16 mg/dL (9-16); Calcium 9.5 mg/dL (8.4-10.2); Carbon Dioxide 28 mmol/L (22-29); Chloride 90 mmol/L (96-108); Creatinine Clr Calc Pharmacy 41.7; Estimated Glomerular Filt Rate > 60; Glucose Random 111 mg/dL (60-115); Potassium 3.8 mmol/L (3.3-5.1); Sodium 127 mmol/L (135-145)
[2020-10-04] MEDS: LORazepam 1 MG TABLET PO (19:15)
== END 2020-10-04 19:26 | disposition home or self-care (01) ==
PROVIDERS: Emergency Provider Internal Medicine
DX: F41.9 Anxiety disorder, unspecified (principal); K21.9 Gastro-esophageal reflux disease without esophagitis; I73.00 Raynaud's syndrome without gangrene; Z79.899 Other long term (current) drug therapy
CPT/HCPCS: 36415; 80048; 85025; 93005; 99284; 99285

== ENCOUNTER → 2020-10-07 12:55 | Outpatient (BNVA) | payer MEDICARE, SELFPAY | PROVIDERS: PCP Internal Medicine; Referring Provider Internal Medicine; Visit Provider Internal Medicine Cardiovascular Disease | DX: I51.81 Takotsubo syndrome (principal) | CPT/HCPCS: 99212 ==

== ENCOUNTER 2020-10-13 10:26 | Emergency (ER) | payer MEDICARE, SELFPAY ==
--- NOTE | ~2020-10-13 | CT_ITS ---
EXAMINATION: CT ABDOMEN AND PELVIS WITH CONTRAST CLINICAL INFORMATION: Abdominal pain. Question diverticulitis. COMPARISON: None TECHNIQUE: Multidetector volumetric images were obtained from the superior aspect of the liver through the pubic symphysis following administration 85 mL of Omnipaque 350 intravenous contrast. Sagittal and coronal reformatted images were obtained on the technologist's workstation. Oral contrast: No This CT examination was performed using dose optimization techniques as appropriate, variously including the following: *Automated exposure control *Adjustment of mA and/or kV according to patient size (this includes techniques or standardized protocols for targeted exams where dose is matched to indication/reason for exam; i.e. extremities or head) *Use of iterative reconstruction technique DLP: 163 mGy-cm FINDINGS: LUNG BASES: There is bibasilar atelectasis. The heart size is normal. LIVER, GALLBLADDER, AND BILIARY TREE: The liver is normal in size, shape, and attenuation. There are several hypodense liver lesions, too small to correctly characterized, probable cyst no intrahepatic ductal dilatation seen. The gallbladder is unremarkable. The gallbladder is unremarkable with no evidence of radiopaque gallstones, gallbladder wall thickening, or obvious pericholecystic inflammatory changes. PANCREAS: The pancreas is unremarkable with the pancreatic duct measuring 3 mm. SPLEEN: Unremarkable. ADRENAL GLANDS: Unremarkable. KIDNEYS AND URETERS: The kidneys are normal in size, shape, and attenuation. There are bilateral nonobstructive radiopaque renal calculi. The largest lower pole left renal calculi measures 7 mm and 2.2 cm from posterior disc and line. There is additional 4 mm radiopaque calculi lower pole left kidney. There are punctate two 3 mm radiopaque calculi in lower pole right kidney there is. There is no caliectasis or hydronephrosis. BLADDER: The bladder is distended. GASTROINTESTINAL TRACT: There is a large amount is stool and gas seen in the colon without distention. There is gas visualized in the small bowel loops as well but no distention. No free air or effort levels. ABDOMINAL WALL: No significant hernia is appreciated. LYMPH NODES: Normal. VASCULAR: Unremarkable. PELVIS : There is residual oral contrast in the sigmoid and descending colon. No free fluid or abnormal inguinal lymph nodes or hernia seen. OSSEOUS STRUCTURES: No lytic or sclerotic process seen there is diffuse osteopenia. Also visualized is moderate levoscoliosis of dorsolumbar junction with moderate spondylosis L1-L2 disc level. CT/CT abdomen pelvis w con IMPRESSION: No acute intra-abdominal process seen. Mild constipation. No inflammatory process seen. Nonobstructive bilateral radiopaque renal calculi. Punctate hypodensity liver probable cysts. Bibasilar atelectasis.
[2020-10-13 10:35] VITALS: BP 160/80; BP 164/73; PULSE 76; TEMP 36.8; O2SAT 100; BMI 16.2
[2020-10-13] MEDS: 0.9 % Sodium Chloride 1,000 ML 999 ML IV (11:20)
[2020-10-13 11:27] LABS: Glucose Urine UA NEG (NEG); Leukocyte Esterase Urine NEG (NEG); Nitrite Urine NEG (NEG); Specific Gravity - Urine <= 1.005 (1.005-1.025); Urine Blood NEG (NEG); Urine Ketones NEG (NEG); Urine Protein NEG (NEG-TRACE)
[2020-10-13 11:29] LABS: Appearance Urine CLEAR; Color Urine STRAW
[2020-10-13 11:47] LABS: MANUAL DIFF FLAG NO
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
[2020-10-13 11:54] LABS: Basophils Percent Auto 0.2 % (0-2); Eosinophils Percent Auto 0.1 % (0-4); Hematocrit 35.6 % (37-47); Hemoglobin 12.1 g/dl (12.0-16.0); Imm Gran Abs Auto 0.03 X10*3/uL (0.00-0.03); Imm Gran Pct Auto 0.3 % (0.0-0.4); Lymphocytes Absolute Auto 0.9 X10*3/uL (1.2-4.9); Lymphocytes Percent Auto 9.4 % (20-40); Mean Corpuscular Hemoglobin 31.3 pg (27.0-33.0); Mean Platelet Volume 9.1 fL (9.4-12.3); Monocytes Absolute Auto 0.6 X10*3/uL (0.1-1.2); Monocytes Percent Auto 6.2 % (2-11); Neutrophils Absolute Auto 7.7 X10*3/uL (2.0-8.3); Neutrophils Percent Auto 83.8 % (45-73); Platelet Count 297 X10*3/uL (160-400); Red Blood Count 3.87 X10*6/uL (4.20-5.50); Red Cell Distribution Width 13.4 % (11.0-16.0); White Blood Count 9.2 X10*3/uL (4.8-10.8)
[2020-10-13 12:02] LABS: INTERNATIONAL NORM RATIO 0.9 (0.9-1.1)
[2020-10-13 12:04] LABS: Partial Thromboplastin Time 26.2 SEC (24.1-38.0)
[2020-10-13 12:15] LABS: Alanine Aminotransferase 33 U/L (0-31); Albumin Level 4.4 g/dL (3.5-5.0); Alkaline Phosphatase 111 U/L (39-117); Anion Gap 15 (12-20); Aspartate Amino Transferase 29 U/L (5-31); Bilirubin Direct 0.2 mg/dL (0.0-0.5); Bilirubin Total 0.7 mg/dL (0.0-1.0); Blood Urea Nitrogen 13 mg/dL (9-16); Calcium 9.5 mg/dL (8.4-10.2); Carbon Dioxide 24 mmol/L (22-29); Chloride 93 mmol/L (96-108); Creatinine Clr Calc Pharmacy 43.5; Estimated Glomerular Filt Rate > 60; Glucose Random 98 mg/dL (60-115); Lipase 74 U/L (8-78); Sodium 128 mmol/L (135-145); Total Protein 6.7 g/dL (6.5-8.0)
[2020-10-13 12:31] LABS: COVID-19 Test Negative (Negative); IDNOW Serial# 08D9AD1C
--- NOTE | 2020-10-13 14:55 | ECG_ITS ---
Test Reason : GENERAL MEDICAL Blood Pressure : / mmHG Vent. Rate : 065 BPM Atrial Rate : 065 BPM P-R Int : 116 ms QRS Dur : 080 ms QT Int : 456 ms P-R-T Axes : 078 059 047 degrees QTc Int : 474 ms Normal sinus rhythm Possible Left atrial enlargement Nonspecific ST and T wave abnormality Abnormal ECG When compared with ECG of 04-OCT-2020 17:54, No significant change was found Referred By: Enrique Cason Electronically Signed By:EKTA PA
[2020-10-13 15:08] LABS: Magnesium 2.5 mg/dL (1.6-2.6)
[2020-10-13] MEDS: iohexoL 350 MG/ML 100 ML INFUS..BTL IV (15:49)
[2020-10-13] MEDS: Lidocaine HCl Viscous 2 % 15 ML SOLUTION MUCOUS MEM (15:59)
[2020-10-13] MEDS: Magnesium Hydrox/Alum Hydrox 30 ML ORAL.SUSP PO (15:59)
[2020-10-13] MEDS: PHENobarb/Hyoscy/Atropine/Scop 10 ML ELIXIR PO (16:00)
[2020-10-13] MEDS: LORazepam 1 MG TABLET PO (16:00)
[2020-10-13] MEDS: Famotidine/PF 20 MG/2 ML VIAL IVPUSH (16:00)
[2020-10-13 16:09] LABS: Troponin-I High Sensitivity 9.5 ng/L (<3.5-17.0)
[2020-10-13 19:45] LABS: Troponin-I High Sensitivity 9.5 ng/L (<3.5-17.0)
[2020-10-13 20:20] VITALS: BP 132/85; PULSE 69; RESP 18; TEMP 36.6; O2SAT 100
== END 2020-10-13 20:28 | disposition home or self-care (01) ==
PROVIDERS: Physician Assistant; Emergency Provider Emergency Medicine Emergency Medical Services
DX: K52.9 Noninfective gastroenteritis and colitis, unspecified (principal); K21.9 Gastro-esophageal reflux disease without esophagitis; R11.2 Nausea with vomiting, unspecified; F41.1 Generalized anxiety disorder; F43.0 Acute stress reaction; Z20.822 Contact with and (suspected) exposure to COVID-19; Z79.899 Other long term (current) drug therapy
CPT/HCPCS: 36415; 74177; 80053; 80076; 81003; 82248; 82550; 83690; 83735; 84484; 85025; 85610; 85730; 87635; 93005; 96365; 96375; 99284; Q9967

== ENCOUNTER 2020-10-14 19:14 | Emergency (ER) | payer MEDICARE, SELFPAY ==
--- NOTE | 2020-10-14 | ECG_ITS ---
Test Reason : CHEST PAIN Blood Pressure : / mmHG Vent. Rate : 063 BPM Atrial Rate : 063 BPM P-R Int : 112 ms QRS Dur : 088 ms QT Int : 438 ms P-R-T Axes : 081 057 063 degrees QTc Int : 448 ms Normal sinus rhythm T wave abnormality, consider anterior ischemia Abnormal ECG When compared with ECG of 13-OCT-2020 15:58, No significant change was found Referred By: Generic ED Physician Electronically Signed By:Alvino Joseph
[2020-10-14 19:23] VITALS: BP 152/72; PULSE 60; RESP 16; TEMP 36.1; O2SAT 93; BMI 16.2
--- NOTE | 2020-10-14 19:48 | ED.CHESTPAIN ---
HPI - Chest Pain General Chief Complaint: Chest Pain Stated Complaint: CHEST PAIN ANXIETY Time Seen by Provider: 10/14/20 19:48 Source: patient Mode of arrival: EMS Limitations: no limitations History of Present Illness HPI narrative: Patient's stay and that he came by ambulance for chest pain shortness of breath dizziness numbness both arms both ankles was given 324 aspirin by EMS patient was seen here yesterday for similar complaints Related Data Previous Rx's Medication Instructions Recorded lorazepam 1 mg tablet 1 mg PO BID PRN 30 Days #60 tab 10/23/20 quetiapine 50 mg tablet 50 mg PO BID 30 Days #60 tab 10/23/20 temazepam 15 mg capsule 15 mg PO BEDTIME PRN 30 Days #30 10/23/20 cap metoprolol succinate 25 mg 25 mg PO DAILY #30 tab 10/25/20 tablet,extended release 24 hr pantoprazole 40 mg tablet,delayed 40 mg PO DAILY #30 tab 10/25/20 release tamsulosin 0.4 mg capsule 0.4 mg PO DAILY #30 cap 10/25/20 famotidine 20 mg tablet 20 mg PO BID #60 tab 11/14/20 Allergies Allergy/AdvReac Type Severity Reaction Status Date / Time No Known Allergies Allergy Verified 10/23/20 11:48 Review of Systems Review of Systems: Yes all other systems are reviewed and are negative PMFSH Past Medical History Medical History Anxiety Constipation by delayed colonic transit Diarrhea GERD (gastroesophageal reflux disease) Insomnia Raynauds disease Renal calculi UTI (urinary tract infection) Villous adenoma of colon Surgical History History of bronchoscopy History of tonsillectomy Family History Family History Father Medical history unknown Mother Dementia Alzheimers disease Brother Leukemia Sister Medical history unknown Social History Social History Alcohol intake: never Physical Exam Vital Signs: Vital Signs: Last Vital Signs Temp 97.0 F 10/14/20 19:23 Pulse 60 10/14/20 19:23 Resp 16 10/14/20 19:23 BP 152/72 H 10/14/20 19:23 Pulse Ox 93 10/14/20 19:23 Body Mass Index 16.2 Appearance: Alert. Oriented X3. No acute distress. Anxious Eyes: PERRLA, No Nystagmus ENT: Pharynx normal. Oral Mucosa moist Neck: Normal inspection. Neck supple. CVS: Normal heart rate and rhythm. Pulses normal. Respiratory: No respiratory distress. Equal air entry bilateral, no wheezing/rales/rhonchi Abdomen: Soft and nontender. Bowel sounds are present, no mass palpable, no CVA tenderness Skin: Skin warm and dry. Normal skin color. Normal skin turgor. Extremities: No lower extremity edema. No calf tenderness Neuro: Oriented X 3. No motor deficit. No sensory deficit. MDM - Chest Pain ECG Data ECG #1: Attestation: I personally reviewed and interpreted this ECG as follows: Interpretation: Normal sinus rhythm heart rate 63 beats per minute, nonspecific ST T wave changes no acute ischemia as compared to old EKG no acute change Discharge Plan Discharge Clinical Impression: Anxiety Patient Disposition: Home, Self-Care Instructions: Anxiety (ED) Additional Instructions: Start taking Seroquel and temazepam. Follow-up with your primary care doctor as scheduled Prescriptions: No Action metoprolol succinate 25 mg tablet extended release 24 hr 25 mg PO DAILY Qty: 30 RF: 5 pantoprazole 40 mg tablet,delayed release (DR/EC) 40 mg PO DAILY Qty: 30 RF: 5 tamsulosin 0.4 mg capsule 0.4 mg PO DAILY Qty: 30 RF: 5 famotidine 20 mg tablet 20 mg PO BID Qty: 60 RF: 2 lorazepam 1 mg tablet 1 mg PO BID PRN (Reason: anxiety) 30 Days Qty: 60 RF: 5 temazepam 15 mg capsule 15 mg PO BEDTIME PRN (Reason: sleep) 30 Days Qty: 30 RF: 5 quetiapine 50 mg tablet 50 mg PO BID 30 Days Qty: 60 RF: 5 Interventions: ED Discharge Assessment Last Done: 10/14/20 20:11 Discharge Date/Time: 10/14/20 20:15
[2020-10-14] MEDS: QUEtiapine Fumarate 25 MG TABLET PO (20:07)
== END 2020-10-14 20:15 | disposition home or self-care (01) ==
PROVIDERS: Emergency Provider Internal Medicine; PCP Internal Medicine
DX: F41.9 Anxiety disorder, unspecified (principal); R07.9 Chest pain, unspecified; Z87.440 Personal history of urinary (tract) infections; I73.00 Raynaud's syndrome without gangrene
CPT/HCPCS: 93005; 99283

== ENCOUNTER 2020-11-22 13:49 | Outpatient (REF) | payer MEDICARE, SELFPAY | END 2020-11-22 13:50 | disposition home or self-care (01) | LOC: HO.LAB 13:49 | PROVIDERS: PCP Internal Medicine; Visit Provider Internal Medicine | DX: R30.0 Dysuria (principal) | CPT/HCPCS: 87086 ==

== ENCOUNTER → 2020-11-27 14:43 | Outpatient (BNVA) | payer MEDICARE, SELFPAY | PROVIDERS: PCP Internal Medicine; Referring Provider Internal Medicine; Visit Provider Nurse Practitioner Family | DX: K21.9 Gastro-esophageal reflux disease without esophagitis (principal); Z12.11 Encounter for screening for malignant neoplasm of colon; R19.7 Diarrhea, unspecified | CPT/HCPCS: 99202 ==

== ENCOUNTER → 2020-12-18 10:31 | Outpatient (REF) | payer MEDICARE, SELFPAY ==
--- NOTE | 2020-12-18 10:35 | CA_ITS ---
Transthoracic Echocardiogram Patient (Last, First, Middle): Lisa Edward L Gender: Female Date of : 1950 Age: 69 Procedure Date: 12/18/2020 Procedure Type: Transthoracic Echocardiogram Location: OP Height: 152.4 cm Weight: 39.01 kg BSA: 1.30 m2 Heart Rate: bpm BP: 158 / 70 mmHg Product Safety Technician: PIETER Referring MD: Alvino Joseph MD Valve Technician: Patel Mondragon MD Symptoms: I51.81 - Takotsubo syndrome Study Quality: Fair ECG Rhythm: Sinus Conclusions: - 1. Normal LV systolic function with grade 1 diastolic dysfunction 2. Normal cardiac valvular Doppler 3. Normal RV systolic pressure 4. No pericardial effusion Findings Left Ventricle Normal left ventricular size, thickness, and systolic function. The visually estimated ejection fraction is between 55-60%. There is no evidence of regional wall motion abnormalities. Spectral Doppler is indicative of an impaired relaxation filling pattern. E/E prime ratio is <8, consistent with normal filling pressures. Evidence suggests grade I (mild) diastolic dysfunction. Right Ventricle Normal right ventricular cavity size and systolic function. Atria Both atria are normal in size. Interatrial shunt cannot be excluded. Aortic Valve The aortic valve was not well visualized. There is no aortic valve stenosis. There is no aortic valve regurgitation. Mitral Valve There is mild anterior and posterior mitral leaflet thickening. There is trace mitral valve regurgitation. There is no mitral valve stenosis. Pulmonic Valve The pulmonic valve was not well visualized. Tricuspid Valve Likely normal tricuspid valve structure and function. There is trace tricuspid valve regurgitation. The right ventricular systolic pressure is normal. The right ventricular systolic pressure is 29 mmHg. Normal right atrial pressure. There is no evidence of pulmonary hypertension. Great Vessels All visible segments of the aorta are normal in size. The pulmonary artery was not well visualized. Venous The inferior vena cava is normal in size and collapses greater than 50% with inspiration. Pericardium/Pleural There is no evidence of pericardial effusion. Prior Study Comparison Changes noted compared to prior study dated: 09/24/2020. LV systolic function has normalized with normal wall motion Measurements 2D Linear Measurements IVSd: 0.52 0.6-0.9/0.6-1.0 cm LVIDd: 4.02 3.9-5.3/4.2-5.9 cm LVIDd Index: 3.09 2.4-3.2/2.2-3.1 cm/m2 LVIDs: 2.64 2.0-3.6 cm LVPWd: 0.68 0.7-1.1 cm Ao Root: 2.50 2.1-3.5 cm LA Diam: 3.00 2.7-3.8/3.0-4.0 cm LAIDs Index: 2.31 1.5-2.3 cm/m2 LV Mass: 80.02 67-162/88-224 g LV Mass Index: 61.56 43-95/49-115 g/m2 LVOT Diam: 1.90 3.0+(-)1.3 cm 2D Systolic Function EF 4C: 52.80 >55% EF 2C: 59.10 >55% EF BiP: 58.90 >55% Mitral Valve MV Pk E: 0.66 MV PK A: 0.74 MV Decel Time: 202.00 E/A: 0.90 E'Lateral: 9.57 E'Medial: 7.94 E/E' Med: 8.30 E/E' Lat: 6.90 PHT: 60.00 MVA PHT: 3.67 Decel Crockett: 3.29 Aortic Valve AoV Pk Abiodun: 1.21 AoV Pk Grad: 6.00 LVOT LVOT Pk Abiodun: 0.75 LVOT Mn Abiodun: 0.47 LVOT VTI: 0.17 LVOT Pk Grad: 2.00 LVOT Mn Grad: 1.00 LVOT Diam: 1.90 LVOT Area: 2.84 Diastolic Function MV Pk E: 0.66 MV Pk A: 0.74 E/A: 0.90 E'Medial: 7.94 E/E' Med: 8.30 E' Laterial: 9.57 E/E' Lat: 6.90 Tricuspid Valve TR Pk Abiodun: 2.57 TR Pk Grad: 26.00 RA Press: 3.00 RVSP: 29.00 Great Vessels Aorta Ao Root-2D: 2.50 2.0-3.7 cm Updated in Other Vendor System with Status of Final Patel Mondragon MD electronically signed on 12/18/2020 4:33:13 PM with status of Final
== END ==
LOC: HO.CARD 10:31
PROVIDERS: Visit Provider Internal Medicine Cardiovascular Disease
DX: I51.81 Takotsubo syndrome (principal)
CPT/HCPCS: 93306

== ENCOUNTER → 2021-03-03 11:00 | Outpatient (BNVA) | payer MEDICARE, SELFPAY | PROVIDERS: PCP Internal Medicine; Referring Provider Internal Medicine; Visit Provider Internal Medicine Cardiovascular Disease | DX: I51.81 Takotsubo syndrome (principal) | CPT/HCPCS: 99212 ==

== ENCOUNTER 2021-03-18 10:34 | Outpatient (REF) | payer MEDICARE, SELFPAY ==
--- NOTE | ~2021-03-18 | MM_ITS ---
EXAMINATION: MM SCREENING DIGITAL BREAST TOMOSYNTHESIS, BILATERAL CLINICAL INFORMATION: Screening. Asymptomatic. The lifetime risk of breast cancer based on the Tyrer-Cuzick Model is 3.0%. COMPARISON: Mammography: December 06, 2019 and studies dating back to April 16, 2012 TECHNIQUE: Digital breast tomosynthesis is performed in both the craniocaudal and mediolateral oblique views along with computer-aided detection (CAD). Synthesized 2D images are generated from the tomosynthesis. FINDINGS: The breasts are heterogeneously dense, which may obscure small masses (ACR BI-RADS breast composition Category c). There are no new significant masses, abnormal calcifications, or other abnormalities. Stable region of architectural distortion seen upper outer aspect of the left breast. MM/MM tomosynthesis screening BI IMPRESSION: There are no significant changes from prior study. ASSESSMENT: BI-RADS 2: Benign RECOMMENDATION: Routine annual mammography screening. This patient's information was entered into a reminder system with a target due date for their next mammogram.
== END 2021-03-18 10:35 | disposition home or self-care (01) ==
LOC: HO.MAMMO 10:34
PROVIDERS: Visit Provider Internal Medicine
DX: Z12.31 Encounter for screening mammogram for malignant neoplasm of breast (principal)
CPT/HCPCS: 77063; 77067

== ENCOUNTER 2021-03-26 13:57 | Outpatient (REF) | payer MEDICARE, SELFPAY ==
[2021-03-26 15:03] LABS: Hematocrit 39.8 % (37-47); Hemoglobin 13.4 g/dl (12.0-16.0); Mean Corpuscular HGB Conc 33.7 g/dl (31.0-35.0); Mean Corpuscular Hemoglobin 29.9 pg (27.0-33.0); Mean Corpuscular Volume 88.8 fL (80-98); Mean Platelet Volume 8.8 fL (9.4-12.3); Platelet Count 327 X10*3/uL (160-400); Red Blood Count 4.48 X10*6/uL (4.20-5.50); Red Cell Distribution Width 12.6 % (11.0-16.0); White Blood Count 7.6 X10*3/uL (4.8-10.8)
[2021-03-26 15:27] LABS: Alanine Aminotransferase 18 U/L (0-31); Albumin Level 5.1 g/dL (3.5-5.0); Alkaline Phosphatase 107 U/L (39-117); Anion Gap 15 (12-20); Aspartate Amino Transferase 32 U/L (5-31); Bilirubin Direct < 0.2 mg/dL (0.0-0.5); Bilirubin Total 0.4 mg/dL (0.0-1.0); Blood Urea Nitrogen 13 mg/dL (9-16); Calcium 10.7 mg/dL (8.4-10.2); Carbon Dioxide 26 mmol/L (22-29); Chloride 91 mmol/L (96-108); Estimated Glomerular Filt Rate 59; Glucose Random 100 mg/dL (60-115); Potassium 4.8 mmol/L (3.3-5.1); Sodium 127 mmol/L (135-145)
== END 2021-03-26 13:58 | disposition home or self-care (01) ==
LOC: HO.LAB 13:57
PROVIDERS: PCP Internal Medicine; Visit Provider Urology
DX: N20.0 Calculus of kidney (principal)
CPT/HCPCS: 36415; 80048; 80076; 85027; 99202

== ENCOUNTER 2021-07-22 14:14 | Outpatient (REF) | payer MEDICARE, SELFPAY | END 2021-07-22 14:15 | disposition home or self-care (01) | LOC: HO.LNP 14:14 | PROVIDERS: Visit Provider Otolaryngology | DX: Z22.322 Carrier or suspected carrier of Methicillin resistant Staphylococcus aureus (principal) | CPT/HCPCS: 87071; 87205 ==

== ENCOUNTER 2021-08-11 10:39 | Outpatient (REF) | payer MEDICARE, SELFPAY ==
--- NOTE | ~2021-08-11 | XR_ITS ---
EXAMINATION: XR SINUSES CLINICAL INFORMATION: Sinusitis COMPARISON: CT brain 08/02/2014 TECHNIQUE: 4 views of the sinuses were obtained. XR/XR sinus min 3V FiNDINGS/IMPRESSION: Visualized paranasal sinuses appear clear. If clinical concern for sinusitis persists, CT sinuses be more sensitive for evaluation. Nasal septum appears deviated approximately 5 mm to the left.
== END 2021-08-11 10:40 | disposition home or self-care (01) ==
LOC: HO.XRAY 10:39
PROVIDERS: PCP Internal Medicine; Visit Provider Otolaryngology
DX: J32.9 Chronic sinusitis, unspecified (principal)
CPT/HCPCS: 70220

== ENCOUNTER 2021-09-15 11:32 | Outpatient (REF) | payer MEDICARE, SELFPAY ==
[2021-09-15 12:52] LABS: Alanine Aminotransferase 15 U/L (0-31); Albumin Level 4.2 g/dL (3.5-5.0); Alkaline Phosphatase 90 U/L (39-117); Anion Gap 12 (12-20); Aspartate Amino Transferase 27 U/L (5-31); Bilirubin Total < 0.2 mg/dL (0.0-1.0); Blood Urea Nitrogen 16 mg/dL (9-16); Calcium 10.2 mg/dL (8.4-10.2); Carbon Dioxide 27 mmol/L (22-29); Chloride 103 mmol/L (96-108); Estimated Glomerular Filt Rate > 60; Glucose Random 100 mg/dL (60-115); Potassium 4.3 mmol/L (3.3-5.1); Sodium 138 mmol/L (135-145); Uric Acid 5.2 mg/dL (2.4-5.7)
[2021-09-15 12:54] LABS: Osmolality, Serum 291 mosm/kg (281-305)
[2021-09-15 13:57] LABS: Appearance Urine CLEAR; Color Urine YELLOW; Glucose Urine UA NEG (NEG); Leukocyte Esterase Urine NEG (NEG); Nitrite Urine NEG (NEG); Specific Gravity - Urine 1.015 (1.005-1.025); Urine Blood NEG (NEG); Urine Ketones NEG (NEG); Urine Protein NEG (NEG-TRACE)
[2021-09-16 08:58] LABS: Osmolality Urine 435 mosm/kg (373-1093)
[2021-09-16 13:47] LABS: PTHI 41 pg/mL (16-77)
[2021-09-17 21:16] LABS: Antibody to SS-A Antigen <1.0 NEG AI (<1.0 NEG); Antibody to SS-B Antigen <1.0 NEG AI (<1.0 NEG)
[2021-09-18 14:41] LABS: Calcium, Ionized 5.1 mg/dL (4.8-5.6)
== END 2021-09-15 11:33 | disposition home or self-care (01) ==
LOC: HO.LAB 11:32
PROVIDERS: Internal Medicine; PCP Internal Medicine; Visit Provider Internal Medicine
DX: E83.52 Hypercalcemia (principal); H04.123 Dry eye syndrome of bilateral lacrimal glands; E87.1 Hypo-osmolality and hyponatremia; M10.9 Gout, unspecified; R30.0 Dysuria
CPT/HCPCS: 36415; 80053; 81003; 82330; 83930; 83935; 83970; 84300; 84550; 86235

== ENCOUNTER 2021-09-29 12:18 | Outpatient (REF) | payer MEDICARE, SELFPAY ==
--- NOTE | ~2021-09-29 | US_ITS ---
EXAMINATION: US VENOUS ULTRASOUND WITH DOPPLER LOWER EXTREMITY, RIGHT CLINICAL INFORMATION: Right lower extremity pain. COMPARISON: None TECHNIQUE: Ultrasound of the deep veins is performed from the hip to the calf with compression sonography and color and pulse Doppler assessment. Spectral analysis with color-flow imaging is performed. FINDINGS: There is normal venous compression and respiratory variation and augmented flow. The visualized common femoral vein, superficial femoral vein, profunda femoral vein, popliteal vein, and the trifurcation region shows no evidence of deep venous thrombosis. There is no significant popliteal fossa cyst. There is a 1.2 x 2.0 x 0.8 cm fluid collection in the right lateral ankle. If the patient's symptoms persist, followup ultrasound in 5 days 7 days might be of value to exclude proximal propagation from a non-visualized calf vein. US/US venous duplex LE RT IMPRESSION: No DVT demonstrated in the right lower extremity. Small fluid collection right lateral ankle.
[2021-09-29 12:47] LABS: MANUAL DIFF FLAG NO
[2021-09-29 13:22] LABS: Basophils Absolute Auto 0.1 X10*3/uL (0.0-0.2); Basophils Percent Auto 0.7 % (0-2); Eosinophils Absolute Auto 0.1 X10*3/uL (0.0-0.4); Eosinophils Percent Auto 0.7 % (0-4); Hematocrit 36.3 % (37.0-47.0); Hemoglobin 11.9 g/dl (12.0-16.0); Imm Gran Abs Auto 0.01 X10*3/uL (0.00-0.03); Imm Gran Pct Auto 0.1 % (0.0-0.4); Lymphocytes Absolute Auto 1.4 X10*3/uL (1.2-4.9); Lymphocytes Percent Auto 18.5 % (20-40); Mean Corpuscular HGB Conc 32.8 g/dl (31.0-35.0); Mean Corpuscular Hemoglobin 30.7 pg (27.0-33.0); Mean Corpuscular Volume 93.6 fL (80.0-98.0); Mean Platelet Volume 9.7 fL (9.4-12.3); Monocytes Absolute Auto 0.6 X10*3/uL (0.1-1.2); Monocytes Percent Auto 7.5 % (2-11); Neutrophils Absolute Auto 5.3 x10*3/uL (2.0-8.3); Neutrophils Percent Auto 72.5 % (45-73); Platelet Count 330 X10*3/uL (160-400); Red Blood Count 3.88 X10*6/uL (4.20-5.50); Red Cell Distribution Width 13.2 % (11.0-16.0); White Blood Count 7.3 X10*3/uL (4.8-10.8)
[2021-09-29 13:46] LABS: C Reactive Protein 0.03 mg/dL (< or = 0.50); Uric Acid 5.5 mg/dL (2.4-5.7)
[2021-09-29 13:58] LABS: Erythrocyte Sedimentation Rate 27 MM/HR (0-20)
== END 2021-09-29 12:19 | disposition home or self-care (01) ==
LOC: HO.US 12:18
PROVIDERS: PCP Internal Medicine; Visit Provider Internal Medicine
DX: M79.661 Pain in right lower leg (principal); M79.89 Other specified soft tissue disorders
CPT/HCPCS: 36415; 84550; 85025; 85652; 86140; 93971

== ENCOUNTER 2021-10-14 10:56 | Outpatient (REF) | payer MEDICARE, SELFPAY ==
--- NOTE | ~2021-10-14 | US_ITS ---
EXAMINATION: US RETROPERITONEAL LIMITED (RENAL ONLY) CLINICAL INFORMATION: Calculus of kidney. COMPARISON: CT abdomen and pelvis 10/13/2020 TECHNIQUE: Real-time imaging of the kidneys. FINDINGS: RIGHT KIDNEY: 9.0 x 4.2 x 4.3 cm (SAG x AP x TRV). The kidney is normal in size, contour, and echogenicity. Renal cortical thickness is normal. No focal parenchymal lesions or hydronephrosis. Numerous renal stones measuring up to 4 mm in the lower pole increased in size and number from prior previously punctate. There is right renal pelviectasis without louise hydronephrosis. LEFT KIDNEY: 7.7 x 3.1 x 3.6 cm (SAG x AP x TRV). The kidney is normal in size, contour, and echogenicity. Renal cortical thickness is normal. No focal parenchymal lesions or hydronephrosis. Numerous left renal stones measuring up to 1.7 cm in the left lower pole, previously 0.5 cm increased in size and number. Incidentally noted left extrarenal pelvis. ADDITIONAL FINDINGS: Bilateral ureteral jets were identified. US/US renal BI IMPRESSION: Numerous bilateral renal stones measuring up to 1.7 cm in the left lower pole which appear increased in size and number from prior. There is right renal pelviectasis without louise hydronephrosis and a left extrarenal pelvis.
== END 2021-10-14 10:57 | disposition home or self-care (01) ==
LOC: HO.US 10:56
PROVIDERS: PCP Internal Medicine; Visit Provider Urology
DX: N20.0 Calculus of kidney (principal)
CPT/HCPCS: 76775

== ENCOUNTER 2021-10-15 14:41 | Outpatient (REF) | payer MEDICARE, SELFPAY ==
[2021-10-15 15:21] LABS: COVID-19 Test Negative (Negative); IDNOW Serial# 9DB6401D
== END 2021-10-15 14:42 | disposition home or self-care (01) ==
LOC: HO.LAB 14:41
PROVIDERS: Visit Provider Internal Medicine
DX: Z20.822 Contact with and (suspected) exposure to COVID-19 (principal)
CPT/HCPCS: 87635; C9803

== ENCOUNTER → 2021-10-23 11:18 | Outpatient (BNVA) | payer MEDICARE, SELFPAY | PROVIDERS: PCP Internal Medicine; Visit Provider Urology | DX: N95.8 Other specified menopausal and perimenopausal disorders (principal); N20.0 Calculus of kidney | CPT/HCPCS: 99212 ==

== ENCOUNTER → 2022-01-07 11:17 | Outpatient (BNVA) | payer MEDICARE, SELFPAY | PROVIDERS: PCP Internal Medicine; Referring Provider Internal Medicine; Visit Provider Surgery | DX: K64.4 Residual hemorrhoidal skin tags (principal); L72.0 Epidermal cyst | CPT/HCPCS: 46600; 99202 ==

== ENCOUNTER 2022-01-27 16:26 | Outpatient (REF) | payer MEDICARE, SELFPAY ==
[2022-01-27 17:48] LABS: Appearance Urine Clear; Color Urine Yellow; Glucose Urine UA Negative (Negative); Leukocyte Esterase Urine Trace (Negative); Nitrite Urine Negative (Negative); PH 6.5 (5.0-8.0); Urine Blood Negative (Negative); Urine Ketones Negative (Negative); Urine Protein Negative (Neg-Trace)
[2022-01-27 17:54] LABS: Bacteria Urine None Seen (None Seen); Hyaline Casts Urine 0-2 /LPF (0-2); RBC Urine 0-2 /HPF (0-2); Squamous Epithelial Cell Urine 0-2 /HPF (0-2); WBC Urine 0-5 /HPF (0-5)
== END 2022-01-27 16:27 | disposition home or self-care (01) ==
LOC: HO.LNP 16:26
PROVIDERS: Visit Provider Urology
DX: N39.0 Urinary tract infection, site not specified (principal)
CPT/HCPCS: 81001; 87086

== ENCOUNTER 2022-03-15 13:53 | Emergency (ER) | payer MEDICARE, SELFPAY ==
[2022-03-15 13:55] VITALS: BP 163/76; PULSE 73; RESP 18; TEMP 36.8; O2SAT 98; BMI 16.9
--- NOTE | 2022-03-15 17:05 | ED.EAR ---
HPI - Ear Problem General Chief complaint: Ear Problems Stated complaint: Pain behind L ear/headache Time Seen by Provider: 03/15/22 16:29 Source: patient Mode of arrival: ambulatory Limitations: no limitations History of Present Illness HPI Narrative: Patient presents emergency department for evaluation of pain posterior to the left ear. This has been intermittent since the middle of February approximately 1 month ago. Stating that at time she feels a small area that becomes red, and itchy. It is painful to touch. But then it resolves. She is concerned that she may have a fungal infection inside of her ear that could be causing this. She states that her ear gets itchy at times in typically has cerumen impaction. Denies fevers, chills, decreased hearing, drainage from the ear, tinnitus, headache, dizziness, lightheadedness, sore throat, neck pain, neck stiffness, recent tick bite or tick borne illness, numbness or tingling to the face. Related Data Previous Rx's Medication Instructions Recorded foot inserts #1 ea 12/04/21 famotidine 20 mg tablet 20 mg PO BID 90 days #180 tabs 03/10/22 lorazepam 1 mg tablet 1 mg PO BID PRN anxiety 30 days 03/10/22 #60 tabs metoprolol succinate 25 mg 25 mg PO DAILY #30 tabs 03/10/22 tablet,extended release 24 hr pantoprazole 40 mg tablet,delayed 40 mg PO DAILY #30 tabs 03/10/22 release quetiapine 50 mg tablet 50 mg PO BID 30 days #60 tabs 03/10/22 temazepam 15 mg capsule 15 mg PO BEDTIME PRN sleep 30 days 03/10/22 #30 caps Allergies Allergy/AdvReac Type Severity Reaction Status Date / Time No Known Allergies Allergy Verified 03/10/22 11:17 Review of Systems Review of Systems: Ear: positive left posterior ear pain Yes all other systems are reviewed and are negative [facility] Past Medical History Attestation statement: The following information was validated with the patient. Source: old records reviewed Medical History Anxiety Constipation by delayed colonic transit Diarrhea Dry eyes Epidermal inclusion cyst External hemorrhoids GERD (gastroesophageal reflux disease) Hypercalcemia Hyponatremia Insomnia Raynauds disease Renal calculi UTI (urinary tract infection) Villous adenoma of colon White coat syndrome with high blood pressure but without hypertension Surgical History History of bronchoscopy History of tonsillectomy Family History Family History Father Medical history unknown Mother Dementia Alzheimers disease Mental health disorder Brother Leukemia Sister Medical history unknown Social History Social History Housing: Apartment Alcohol intake: never Patient Tobacco Use Status: Former Tobacco user Tobacco use type: Cigarette e-Cigarette/Vaping Use: Never Used Second Hand Smoke Exposure: No Advance Directives: Yes Advance Directives Information Provided: No Advance Directives on File: No service: No Current occupational status: retired Cognitive needs: No Hearing needs: No Vision needs: Yes Physical Exam Vital Signs: Vital Signs: Last Vital Signs Temp 98.2 F 03/15/22 13:55 Pulse 73 03/15/22 13:55 Resp 18 03/15/22 13:55 BP 163/76 H 03/15/22 13:55 Pulse Ox 98 03/15/22 13:55 O2 Del Method 03/15/22 13:55 BMI result Body Mass Index 16.9 Appearance: Alert.?Oriented to person, place and time. No acute distress.?Normal affect. Eyes: Pupils equal, round and reactive to light.? ENT: Pharynx normal.?? TM normally bilaterally. Ear canals clear bilaterally. No tenderness upon palpation over the mastoid. No erythema. No rash. No lesions. No wounds. No swelling. Neck: Normal inspection.? Neck supple.?? CVS: Heart sounds normal. Normal heart rate and rhythm.? Pulses normal.?? Respiratory: No respiratory distress.? Lung sounds clear to auscultation bilaterally?? Abdomen: Soft and non-tender. Skin: Skin warm and dry.? Normal skin color.?? Extremities: No lower extremity edema. Neuro: Moves all extremities spontaneously. Sensation intact bilaterally. CN II-XII intact. No focal neuro deficits. Ambulates with normal steady gait. Course Course Course Narrative: Patient is a 71-year-old female with history of anxiety presenting to emergency department for evaluation of left posterior ear pain intermittent in nature the past month. She expresses high amounts of anxiety surrounding this, she is concerned that there may be an infection. Upon physical examination there is low suspicion for infection, does not appear consistent with a cellulitis are no rashes wounds or lesions, no erythema warmth or tenderness upon palpation. Internal ear without evidence of infection. At consistent with acute otitis media, or otitis externa. At this time, the area is not red or swollen as she had previously mentioned. Advised Tylenol as needed for pain. Reviewed worrisome signs and symptoms to return back to the emergency department for. Advised outpatient follow-up with her primary care provider. All questions were answered, patient was discharged home in stable condition. MDM - Ear Medical Records Attestation: I reviewed the patient's medical records. Discharge Plan Discharge Clinical Impression: Pain behind the ear Patient Disposition: Home, Self-Care Additional Instructions: You can take Tylenol 500 mg, 2 tablets (1,000mg) every 4-6 hours as needed for pain, but not to exceed 3 doses daily (3,000mg).? follow-up with your primary care provider within 1 week as needed. Return to emergency department any new or worsening symptoms or concerns. Prescriptions: No Action (DME) foot inserts See Rx Instructions .Route .MEDSUPPLY Qty: 1 0RF Rx Instructions: As directed famotidine 20 mg tablet 20 mg PO BID 90 Days Qty: 180 2RF pantoprazole 40 mg tablet,delayed release (DR/EC) 40 mg PO DAILY Qty: 30 5RF quetiapine 50 mg tablet 50 mg PO BID 30 Days Qty: 60 5RF temazepam 15 mg capsule 15 mg PO BEDTIME PRN (Reason: sleep) 30 Days Qty: 30 5RF lorazepam 1 mg tablet 1 mg PO BID PRN (Reason: anxiety) 30 Days Qty: 60 5RF metoprolol succinate 25 mg tablet extended release 24 hr 25 mg PO DAILY Qty: 30 5RF Interventions: ED Discharge Assessment Last Done: 03/15/22 17:16 Discharge Date/Time: 03/15/22 17:16
== END 2022-03-15 17:16 | disposition home or self-care (01) ==
PROVIDERS: Emergency Provider Emergency Medicine Emergency Medical Services; PCP Internal Medicine
DX: H92.02 Otalgia, left ear (principal); R51.9 Headache, unspecified; Z79.899 Other long term (current) drug therapy; Z87.891 Personal history of nicotine dependence
CPT/HCPCS: 99282

== ENCOUNTER 2022-03-30 10:37 | Outpatient (REF) | payer MEDICARE, SELFPAY | END 2022-03-30 10:38 | disposition home or self-care (01) | LOC: HO.LNP 10:37 | PROVIDERS: PCP Internal Medicine; Visit Provider Surgery | DX: L72.0 Epidermal cyst (principal) | CPT/HCPCS: 11403; 88304; 99212 ==

== ENCOUNTER 2022-04-06 10:40 | Outpatient (REF) | payer MEDICARE, SELFPAY ==
--- NOTE | ~2022-04-06 | US_ITS ---
EXAMINATION: US RETROPERITONEAL LIMITED (RENAL ONLY) CLINICAL INFORMATION: Calculus of kidney. COMPARISON: Ultrasound retroperitoneal limited (renal only) 10/14/2021. CT abdomen and pelvis with contrast 10/13/2020. TECHNIQUE: Real-time imaging of the kidneys. FINDINGS: RIGHT KIDNEY: 8.7 x 5.0 x 5.3 cm (SAG x AP x TRV). The kidney is normal in size, contour, and echogenicity. Renal cortical thickness is normal. Multiple small stones, largest measuring 2 x 4 mm in the lower pole. No focal parenchymal lesions or hydronephrosis. LEFT KIDNEY: 8.1 x 3.3 x 3.6 cm (SAG x AP x TRV). The kidney is normal in size, contour, and echogenicity. Renal cortical thickness is normal. Multiple stones, largest measuring 6 x 5 x 8 mm and 1 x 5 x 10 mm in the lower pole No focal parenchymal lesions or hydronephrosis. US/US renal BI IMPRESSION: Bilateral renal stones.
== END 2022-04-06 10:41 | disposition home or self-care (01) ==
LOC: HO.US 10:40
PROVIDERS: Visit Provider Urology
DX: N20.0 Calculus of kidney (principal)
CPT/HCPCS: 76775

== ENCOUNTER → 2022-04-07 11:03 | Outpatient (BNVA) | payer MEDICARE, SELFPAY | PROVIDERS: PCP Internal Medicine; Visit Provider Urology | DX: N20.0 Calculus of kidney (principal); N95.8 Other specified menopausal and perimenopausal disorders | CPT/HCPCS: Q3014 ==

== ENCOUNTER 2022-04-29 12:42 | Outpatient (REF) | payer MEDICARE, SELFPAY ==
[2022-04-29 14:16] LABS: Uric Acid 6.1 mg/dL (2.4-5.7)
== END 2022-04-29 12:43 | disposition home or self-care (01) ==
LOC: HO.LAB 12:42
PROVIDERS: PCP Internal Medicine; Visit Provider Podiatrist
DX: M10.9 Gout, unspecified (principal)
CPT/HCPCS: 36415; 84550

== ENCOUNTER 2022-06-02 10:39 | Outpatient (REF) | payer MEDICARE, SELFPAY ==
[2022-06-02 12:21] LABS: Uric Acid 4.4 mg/dL (2.4-5.7)
== END 2022-06-02 10:40 | disposition home or self-care (01) ==
LOC: HO.LAB 10:39
PROVIDERS: PCP Internal Medicine; Visit Provider Podiatrist
DX: M10.9 Gout, unspecified (principal)
CPT/HCPCS: 36415; 84550

== ENCOUNTER 2022-08-03 11:46 | Emergency (ER) | payer MEDICARE, SELFPAY ==
--- NOTE | ~2022-08-03 | XR_ITS ---
EXAMINATION: XR FOOT, LEFT CLINICAL INFORMATION: Fall, trauma, pain COMPARISON: None TECHNIQUE: AP, lateral, and oblique views of the left foot. FINDINGS: There is generalized osteopenia. The toes are superimposed on the lateral view. The oblique projections suggests probable hairline fractures at junction base and proximal shaft fourth and fifth proximal phalanges. This may be correlated with patient's symptoms and clinical exam. The remainder of the bony structures appear intact with no other suspected fracture and no dislocation or destructive process. There is no erosive arthropathy. Small posterior and plantar calcaneal spurs. XR/XR foot LT min 3V IMPRESSION: -Suspect hairline fractures at junction base and proximal shaft fourth and fifth proximal phalanges. This may be correlated with patient's symptoms and clinical exam. -Generalized osteopenia. No destructive process. No erosive changes. -Posterior and plantar calcaneal spurs.
--- NOTE | ~2022-08-03 | XR_ITS ---
EXAMINATION: XR HIP, LEFT CLINICAL INFORMATION: Fall, trauma, pain COMPARISON: CT abdomen and pelvis 10/13/2020 TECHNIQUE: AP view pelvis is performed along with AP and frog-lateral projections of the left hip. FINDINGS: There is generalized osteopenia. Fractures are present anterior left pelvis involving the lateral superior pubic ramus and mid inferior pubic ramus. No significant displacement. The remainder of the pelvis and hips appear intact. No diastases SI joints or pubis. There is a levocurvature lumbar spine with multilevel degenerative disc changes again seen. XR/XR hip LT w PEL1V IMPRESSION: -Fractures left superior and inferior pubic rami. No significant displacement. -Generalized osteopenia. -Left hip otherwise unremarkable. -Degenerative changes lumbar spine.
--- NOTE | 2022-08-03 12:03 | ED_ITS ---
HPI - Fall General Chief Complaint: Fall <ONEL Calzada Last Filed: 08/03/22 16:35> Stated Complaint: Fall 08/02/22 <ONEL Calzada - Last Filed: 08/03/22 16:35> Source: patient <ONEL Gomez Last Filed: 08/03/22 15:55> Mode of arrival: ambulatory <ONEL Gomez - Last Filed: 08/03/22 15:55> Limitations: no limitations <ONEL Gomez Last Filed: 08/03/22 15:55> History of Present Illness HPI Narrative: 71yoF with a PMHx of depression, cardiomyopathy, GERD, insomnia and anxiety who is presenting to the ER with complaints of left hip/inner groin pain with difficulty walking since Wednesday where she fell on the street landing on her left leg in an outward position. Since then she has been having this pain and difficulty walking. She denies being on any blood thinners or any head injury loss of consciousness or prolonged down time. She denies any symptoms prior to the fall. She reports only left hip/groin pain after the fall with difficulty walking no other symptoms. She denies any headaches, dizziness, chest pain or shortness of breath, paresthesias, focal weakness, abdominal pain, nausea/vomiting/diarrhea, change in vision or any other symptoms complaints or concerns at this time. <ONEL Gomez - Last Filed: 08/03/22 15:55> MD complaint: fall <ONEL Gomez Last Filed: 08/03/22 15:55> Onset (ago): day(s) (2) <ONEL Gomez Last Filed: 08/03/22 15:55> Fall from: standing <ONEL Gomez Last Filed: 08/03/22 15:55> Fall witnessed: no <ONEL Gomez Last Filed: 08/03/22 15:55> Place fall occurred: street <ONEL Gomez Last Filed: 08/03/22 15:55> Loss of consciousness: none <ONEL Gomez Last Filed: 08/03/22 15:55> Prolonged down time: no <ONEL Gomez - Last Filed: 08/03/22 15:55> Symptoms prior to fall: none <ONEL Gomez - Last Filed: 08/03/22 15:55> Context: tripped/slipped <ONEL Gomez - Last Filed: 08/03/22 15:55> Location of injury - extremities: left: lower leg (hip and inner thigh/groin area) <ONEL Gomez - Last Filed: 08/03/22 15:55> Severity: mild <ONEL Gomez - Last Filed: 08/03/22 15:55> Quality: aching <ONEL Gomez - Last Filed: 08/03/22 15:55> Associated symptoms (after fall): other (Having trouble walking and pain with walking) <ONEL Gomez - Last Filed: 08/03/22 15:55> Related Data Home Medications: Home Medications Medication Instructions Recorded Confirmed doxycycline hyclate 50 mg capsule 50 mg PO BID 04/06/22 07/21/22 Previous Rx's Medication Instructions Recorded foot inserts #1 ea 12/04/21 famotidine 20 mg tablet 20 mg PO BID 90 days #180 tabs 03/10/22 lorazepam 1 mg tablet 1 mg PO BID PRN anxiety 30 days 03/10/22 #60 tabs metoprolol succinate 25 mg 25 mg PO DAILY #30 tabs 03/10/22 tablet,extended release 24 hr pantoprazole 40 mg tablet,delayed 40 mg PO DAILY #30 tabs 03/10/22 release quetiapine 50 mg tablet 50 mg PO BID 30 days #60 tabs 03/10/22 temazepam 15 mg capsule 15 mg PO BEDTIME PRN sleep 30 days 03/10/22 #30 caps estradiol 0.01% (0.1 mg/gram) See Rx Instructions vaginal 2XW 30 04/07/22 vaginal cream days #42.5 grams <ONEL Calzada - Last Filed: 08/03/22 16:35> Allergies/Adverse Reactions: Allergies Allergy/AdvReac Type Severity Reaction Status Date / Time No Known Allergies Allergy Verified 07/21/22 10:50 <ONEL Calzada - Last Filed: 08/03/22 16:35> Review of Systems Review of Systems: Constitutional : No Weight loss, No Fever, No Chills, No Night Sweats, No Fatigue, No Malaise ENT/Mouth : No Hearing loss, No Ear Pain, No Nasal Congestion, No Sinus Pain, No Hoarseness, No sore throat, No Rhinorrhea, No Swallowing Difficulty Eyes: No Eye Pain, No Swelling, No Redness, No Foreign Body, No Discharge, No Vision Changes Cardiovascular : No Chest Pain, No SOB, No Dyspnea on Exertion, No Orthopnea, No Edema, No Palpitations Respiratory : No Cough, No Sputum, No Wheezing, No Smoke Exposure, No Dyspnea Gastrointestinal : No Nausea, No Vomiting, No Diarrhea, No Constipation, No abdominal Pain, No Hematochezia, No Melena Genitourinary : no irregular bleeding, No Dysuria, No Urinary Frequency, No Hematuria, No Urinary Incontinence, No Urgency, No Flank Pain, No Urinary Flow Changes, No Hesitancy Musculoskeletal : + left hip/groin joint pain, No Myalgias, No Joint Swelling Skin : No Skin Lesions, No rash Neuro : No Weakness, No Numbness, No Paresthesias, No Loss of Consciousness, No Dizziness, No Headache Psych : No Anxiety/Panic, No Depression, No SI/HI/AH/VH, No Social Issues, Heme/Lymph: No Bruising, No Bleeding,No Lymphadenopathy Endocrine : No Polyuria, No Polydipsia, No Temperature Intolerance <ONEL Chavez - Last Filed: 08/03/22 15:55> Yes all other systems are reviewed and are negative <ONEL Gomez - Last Filed: 08/03/22 15:55> [facility] Past Medical History Attestation statement: The following information was validated with the patient. <ONEL Gomez - Last Filed: 08/03/22 15:55> Source: old records reviewed and nursing notes reviewed <ONEL Gomez - Last Filed: 08/03/22 15:55> Medical History: Medical History Anxiety Constipation by delayed colonic transit Diarrhea Dry eyes Epidermal inclusion cyst External hemorrhoids GERD (gastroesophageal reflux disease) Hypercalcemia Hyponatremia Insomnia Raynauds disease Renal calculi UTI (urinary tract infection) Villous adenoma of colon White coat syndrome with high blood pressure but without hypertension <ONEL Calzada - Last Filed: 08/03/22 16:35> Surgical History: Surgical History History of bronchoscopy History of tonsillectomy <ONEL Calzada - Last Filed: 08/03/22 16:35> Family History Family History: Family History Father Medical history unknown Mother Dementia Alzheimers disease Mental health disorder Brother Leukemia Sister Medical history unknown <ONEL Calzada - Last Filed: 08/03/22 16:35> Social History Social History: Social History Housing: Apartment Alcohol intake: never Patient Tobacco Use Status: Former Tobacco user Tobacco use type: Cigarette e-Cigarette/Vaping Use: Never Used Second Hand Smoke Exposure: No Advance Directives: Yes Advance Directives on File: No service: No Current occupational status: retired Cognitive needs: No Hearing needs: No Vision needs: Yes <ONEL Calzada - Last Filed: 08/03/22 16:35> Physical Exam Vital Signs: Vital Signs: Last Vital Signs Temp 98 F 08/03/22 12:04 Pulse 73 08/03/22 12:04 Resp 18 08/03/22 12:04 BP 154/53 H 08/03/22 12:04 O2 Del Method 08/03/22 12:04 BMI result Body Mass Index 17.2 <ONEL Calzada - Last Filed: 08/03/22 16:35> Vital Signs: Last Vital Signs Temp 98 F 08/03/22 12:04 Pulse 73 08/03/22 12:04 Resp 18 08/03/22 12:04 BP 154/53 H 08/03/22 12:04 O2 Del Method 08/03/22 12:04 BMI result Body Mass Index 17.2 vital signs have been reviewed as normal and appeared to be correct. Blood pressure 154/53. Heart rate normal. Respiration rate normal. Temperature normal. Oxygen saturation normal. <ONEL Gomez - Last Filed: 08/03/22 15:55> Appearance: Alert. Oriented X3. No acute distress. Head: Normal external exam. Normocephalic. Atraumatic. No Huertas signs noted. No raccoon eyes noted Eyes: PERRLA. EOMI. Conjunctiva and sclera normal. Eyelids normal. ENT: EAC normal. TM's Normal. No septal hematoma noted. No hemotympanum noted. Pharynx normal. Uvula midline. Moist mucous membranes. No lesions/ulcerations or masses noted on the tongue. Normal voice. No trismus noted. No drooling no rosa. No muffled voice noted. Neck: Normal inspection. Neck supple. FROM. No adenopathy. Thyroid Normal. No tracheal deviation noted. No crepitus is noted. No meningeal signs. No neck mass noted. No signs of trauma noted. CVS: Normal heart rate and rhythm. Heart sound normal. Pulses normal throughout. No murmurs/rales/gallops. Respiratory: No respiratory distress. Painless inspiration. Breath sounds normal. No wheezes/rales/rhonchi noted. Chest nontender. No crepitus is noted. No accessory muscle usage noted or decreased air movement noted. No signs of trauma. Abdomen: Soft and nontender. Nondistended. No guarding. No rigidity. Bowel sounds normal in all 4 quadrants. No distention noted. No organomegaly noted. No visible injury noted. No rebound tenderness. Negative Rovsing sign. Negative obturator's sign. Negative psoas sign. Negative Engel sign. Back: No CVA tenderness. Full range of motion noted. Nontender. No signs of trauma. Patient neuro intact bilaterally and distally on all 4 extremities. Patient's reflexes intact bilaterally and distally on all 4 extremities. No rashes/lesion/induration/fluctuance or signs of infection noted. Skin: Skin warm and dry. Normal skin color. Normal skin turgor. No rashes/lesions/lacerations noted. Extremities: Patient with mild tenderness palpation to the left hip/groin in her area worse with abduction of the left hip along with flexion and extension. Although she has full range of motion of bilateral hip joints. No obvious ligamentous or tendon injury noted. She has full range of motion of bilateral knees ankle and foot joint. No obvious deformities are noted. There is no lower extremity edema or calf tenderness noted bilaterally. Otherwise all other extremities exhibit normal range of motion nontender. Neuro: Oriented X 3. No motor deficit. No sensory deficit. Reflexes normal. Normal steady gait with assistance of a walker. No focal neuro deficits noted. CN's II-XII intact bilaterally? Vascular: + radial pulses/+ 2 distal pedal pulses/+2 dorsalis pedis b/l. Normal cap refill. No cyanosis noted to upper extremity nails and lower extremity toes nails. <ONEL Gomez - Last Filed: 08/03/22 15:55> Course Course Course Narrative: ANNAMARIE - 71 yo F presenting today with complaints of left groin pain status post mechanical fall which occurred 2 days ago, able to walk after fall, but today, she is unable to walk today due to the pain. 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 No SOB. Plan: Xrays ordered. <ONEL Calzada - Last Filed: 08/03/22 16:35> Reevaluation(s) Reevaluation #1: 71yoF with a PMHx of depression, cardiomyopathy, GERD, insomnia and anxiety who is presenting to the ER with complaints of left hip/inner groin pain with difficulty walking since Wednesday where she fell on the street landing on her left leg in an outward position. Since then she has been having this pain and difficulty walking. She denies being on any blood thinners or any head injury loss of consciousness or prolonged down time. She denies any symptoms prior to the fall. She reports only left hip/groin pain after the fall with difficulty walking no other symptoms. Plan: Will obtain labs, COVID swab an EKG. Obtain a physical therapy evaluation in a walker. Involved case management due to patient refusing admission or short-term rehab. Will re-evaluate. <ONEL Gomez - Last Filed: 08/03/22 15:55> Time: 14:10 <ONEL Gomez - Last Filed: 08/03/22 15:55> Reevaluation #2: Labs were obtained while the patient was in triage patient leukocytosis of 15,000. Mild anemia with an H&H of 11.6/33.9. Chloride 113. Carbon dioxide 15. BUN 41. Random glucose 120. AST 34. Otherwise all other labs are within normal limits. Patient negative for COVID. Left hip and pelvis x-ray revealed fractures left superior and inferior pubic rami. No displacement. No other acute processes noted. Left foot x-ray revealed possible hairline fractures to the junction base and proximal shaft 4th and 5th proximal phalanges. Although patient does not have any pain at this time there. She only has pain with walking. Therefore at this time she was evaluated by physical therapy due to she does not want to be sent to a short-term rehab I did recommended. Patient also does not want IV fluids reports that she just wants to go home and relax. Reports that she has help at home. Therefore physical therapy is recommending at home physical therapy. I also gave her a walker here. She is ambulating well. She does not want an ortho boot she reports she will take an ortho shoe to go home. Otherwise no additional labs or imaging indicated at this time. Patient refusing to go to short-term rehab therefore she will go home by a lyft and have [facility] nurses or physical therapy at home. Along with instructions return if any new or worsening symptoms. Patient understands agrees with this plan. <ONEL Gomez - Last Filed: 08/03/22 15:55> Time: 15:24 <ONEL Gomez - Last Filed: 08/03/22 15:55> Medical Decision Making Lab Data MDM Lab Attestation statement: I reviewed the patient's lab results. <ONEL Gomez - Last Filed: 08/03/22 15:55> Result Diagrams: 08/03/22 14:55 08/03/22 14:55 <ONEL Calzada - Last Filed: 08/03/22 16:35> Labs: Lab Results 08/03/22 08/03/22 08/03/22 Range/Units 14:55 14:55 14:55 WBC 15.6 H (4.8-10.8) X10*3/uL RBC 3.87 L (4.20-5.50) X10*6/uL Hgb 11.6 L (12.0-16.0) g/dl Hct 33.9 L (37.0-47.0) % MCV 87.6 (80.0-98.0) fL MCH 30.0 (27.0-33.0) pg MCHC 34.2 (31.0-35.0) g/dl RDW 13.9 (11.0-16.0) % Plt Count 308 (160-400) X10*3/uL MPV 9.8 (9.4-12.3) fL Immature Gran % (Auto) 0.6 H (0.0-0.4) % Neut % (Auto) 81.5 H (45-73) % Lymph % (Auto) 10.7 L (20-40) % [place] % (Auto) 6.2 (2-11) % Eos % (Auto) 0.6 (0-4) % Baso % (Auto) 0.4 (0-2) % Lymph # (Auto) 1.7 (1.2-4.9) X10*3/uL [place] # (Auto) 1.0 (0.1-1.2) X10*3/uL Eos # (Auto) 0.1 (0.0-0.4) X10*3/uL Baso # (Auto) 0.1 (0.0-0.2) X10*3/uL Abs Immat Gran (auto) 0.09 H (0.00-0.03) X10*3/uL Absolute Neuts (auto) 12.7 H (2.0-8.3) x10*3/uL Absolute Nucleated RBC 0.000 (0.0-0.012) X10*3/uL Nucleated RBC % (auto) 0.0 (0.0-0.2) /100WBC Sodium 138 (135-145) mmol/L Potassium 3.4 D (3.3-5.1) mmol/L Chloride 113 H (96-108) mmol/L Carbon Dioxide 15 L (22-29) mmol/L Anion Gap 13 (12-20) BUN 41 H (9-16) mg/dL Creatinine 0.97 (0.5-1.4) mg/dL Estim Creat Clear Calc 32.5 Estimated GFR 56 Random Glucose 120 H (60-115) mg/dL Calcium 9.8 (8.4-10.2) mg/dL Magnesium 2.3 (1.6-2.6) mg/dL Total Bilirubin 0.3 (0.0-1.0) mg/dL AST 34 H (5-31) U/L ALT 22 (0-31) U/L Alkaline Phosphatase 114 (39-117) U/L Total Protein 6.5 (6.5-8.0) g/dL Albumin 4.0 (3.5-5.0) g/dL COVID-19 (ADI) Negative (Negative) COVID-19 Clin Com See Note <ONEL Calzada - Last Filed: 08/03/22 16:35> Lab Results 08/03/22 08/03/22 08/03/22 Range/Units 14:55 14:55 14:55 WBC 15.6 H (4.8-10.8) X10*3/uL RBC 3.87 L (4.20-5.50) X10*6/uL Hgb 11.6 L (12.0-16.0) g/dl Hct 33.9 L (37.0-47.0) % MCV 87.6 (80.0-98.0) fL MCH 30.0 (27.0-33.0) pg MCHC 34.2 (31.0-35.0) g/dl RDW 13.9 (11.0-16.0) % Plt Count 308 (160-400) X10*3/uL MPV 9.8 (9.4-12.3) fL Immature Gran % (Auto) 0.6 H (0.0-0.4) % Neut % (Auto) 81.5 H (45-73) % Lymph % (Auto) 10.7 L (20-40) % [place] % (Auto) 6.2 (2-11) % Eos % (Auto) 0.6 (0-4) % Baso % (Auto) 0.4 (0-2) % Lymph # (Auto) 1.7 (1.2-4.9) X10*3/uL [place] # (Auto) 1.0 (0.1-1.2) X10*3/uL Eos # (Auto) 0.1 (0.0-0.4) X10*3/uL Baso # (Auto) 0.1 (0.0-0.2) X10*3/uL Abs Immat Gran (auto) 0.09 H (0.00-0.03) X10*3/uL Absolute Neuts (auto) 12.7 H (2.0-8.3) x10*3/uL Absolute Nucleated RBC 0.000 (0.0-0.012) X10*3/uL Nucleated RBC % (auto) 0.0 (0.0-0.2) /100WBC Sodium 138 (135-145) mmol/L Potassium 3.4 D (3.3-5.1) mmol/L Chloride 113 H (96-108) mmol/L Carbon Dioxide 15 L (22-29) mmol/L Anion Gap 13 (12-20) BUN 41 H (9-16) mg/dL Creatinine 0.97 (0.5-1.4) mg/dL Estim Creat Clear Calc 32.5 Estimated GFR 56 Random Glucose 120 H (60-115) mg/dL Calcium 9.8 (8.4-10.2) mg/dL Magnesium 2.3 (1.6-2.6) mg/dL Total Bilirubin 0.3 (0.0-1.0) mg/dL AST 34 H (5-31) U/L ALT 22 (0-31) U/L Alkaline Phosphatase 114 (39-117) U/L Total Protein 6.5 (6.5-8.0) g/dL Albumin 4.0 (3.5-5.0) g/dL COVID-19 (ADI) Negative (Negative) COVID-19 Clin Com See Note <ONEL Gomez - Last Filed: 08/03/22 15:55> Independent Interpretation I performed an independent interpretation of an: EKG (Normal sinus rhythm with ventricular rate of [address] abnormalities no acute ischemic change are noted. Similar compared to prior EKG 10/14/2020) and Plain X-Ray (X-rays reviewed by myself and discussed with patient) <ONEL Gomez - Last Filed: 08/03/22 15:55> Radiology Impression Discussion of test interpretation with radiology: I have reviewed the radiologist's reading. <ONEL Gomez - Last Filed: 08/03/22 15:55> Radiologist Impression: EXAMINATION: XR HIP, LEFT CLINICAL INFORMATION: Fall, trauma, pain COMPARISON: CT abdomen and pelvis 10/13/2020 TECHNIQUE: AP view pelvis is performed along with AP and frog-lateral projections of the left hip. FINDINGS: There is generalized osteopenia. Fractures are present anterior left pelvis involving the lateral superior pubic ramus and mid inferior pubic ramus. No significant displacement. The remainder of the pelvis and hips appear intact. No diastases SI joints or pubis. There is a levocurvature lumbar spine with multilevel degenerative disc changes again seen. XR/XR hip LT w PEL1V IMPRESSION: -Fractures left superior and inferior pubic rami. No significant displacement. -Generalized osteopenia. -Left hip otherwise unremarkable. -Degenerative changes lumbar spine. FINDINGS: There is generalized osteopenia. The toes are superimposed on the lateral view. The oblique projections suggests probable hairline fractures at junction base and proximal shaft fourth and fifth proximal phalanges. This may be correlated with patient's symptoms and clinical exam. The remainder of the bony structures appear intact with no other suspected fracture and no dislocation or destructive process. There is no erosive arthropathy. Small posterior and plantar calcaneal spurs.? XR/XR foot LT min 3V IMPRESSION: -Suspect hairline fractures at junction base and proximal shaft fourth and fifth proximal phalanges. This may be correlated with patient's symptoms and clinical exam. ? -Generalized osteopenia. No destructive process. No erosive changes. ? -Posterior and plantar calcaneal spurs. <ONEL Gomez - Last Filed: 08/03/22 15:55> External Record Review External record reviewed: Inpatient record, Office record, Outpatient record, Prior outpatient labs, Prior outpatient radiology, Primary care record and Outside ED record <ONEL Gomez - Last Filed: 08/03/22 15:55> Prescription Management I considered prescription management with: Pain Medication <ONEL Gomez - Last Filed: 08/03/22 15:55> Discharge Plan Discharge Clinical Impression: Fall, Closed fracture multiple phalanges, toe, Closed fracture of pubic ramus <ONEL Calzada - Last Filed: 08/03/22 16:35> Patient Disposition: Home, Self-Care <ONEL Calzada - Last Filed: 08/03/22 16:35> Instructions: Pelvic Fracture (ED), Foot Fracture in Adults (ED) <ONEL Calzada - Last Filed: 08/03/22 16:35> Prescriptions: No Action (DME) foot inserts See Rx Instructions .Route .MEDSUPPLY Qty: 1 0RF Rx Instructions: As directed famotidine 20 mg tablet 20 mg PO BID 90 Days Qty: 180 2RF pantoprazole 40 mg tablet,delayed release (DR/EC) 40 mg PO DAILY Qty: 30 5RF quetiapine 50 mg tablet 50 mg PO BID 30 Days Qty: 60 5RF temazepam 15 mg capsule 15 mg PO BEDTIME PRN (Reason: sleep) 30 Days Qty: 30 5RF lorazepam 1 mg tablet 1 mg PO BID PRN (Reason: anxiety) 30 Days Qty: 60 5RF metoprolol succinate 25 mg tablet extended release 24 hr 25 mg PO DAILY Qty: 30 5RF doxycycline hyclate 50 mg capsule 50 mg PO BID estradiol 0.01 % (0.1 mg/gram) cream See Rx Instructions vaginal 2XW 30 Days Qty: 42.5 0RF Rx Instructions: vaginally 2 times a week; pea sized amount to urethra 2 times a week <ONEL Calzada - Last Filed: 08/03/22 16:35> Referrals: [facility] [Provider Group] (Call to make a follow-up appoint within the next few weeks) [facility] [Outside] (This agency will call you to arrange a visit. ) Aniyah Smith MD [Primary Care Provider] - <ONEL Calzada - Last Filed: 08/03/22 16:35>
[2022-08-03 12:04] VITALS: BP 154/53; PULSE 73; RESP 18; TEMP 36.6; BMI 17.2
--- NOTE | 2022-08-03 14:11 | ECG_ITS ---
Test Reason : fall Blood Pressure : / mmHG Vent. Rate : 069 BPM Atrial Rate : 069 BPM P-R Int : 130 ms QRS Dur : 088 ms QT Int : 390 ms P-R-T Axes : 067 050 056 degrees QTc Int : 417 ms Normal sinus rhythm Nonspecific ST abnormality Abnormal ECG When compared with ECG of 14-OCT-2020 19:24, T wave inversion no longer evident in Anterior leads Referred By: Keyonna Cesar Electronically Signed By:RAISSA SMITH MD
[2022-08-03 15:06] LABS: MANUAL DIFF FLAG NO
[2022-08-03 15:10] LABS: Basophils Absolute Auto 0.1 X10*3/uL (0.0-0.2); Basophils Percent Auto 0.4 % (0-2); Eosinophils Absolute Auto 0.1 X10*3/uL (0.0-0.4); Eosinophils Percent Auto 0.6 % (0-4); Hematocrit 33.9 % (37.0-47.0); Hemoglobin 11.6 g/dl (12.0-16.0); Imm Gran Abs Auto 0.09 X10*3/uL (0.00-0.03); Imm Gran Pct Auto 0.6 % (0.0-0.4); Lymphocytes Absolute Auto 1.7 X10*3/uL (1.2-4.9); Lymphocytes Percent Auto 10.7 % (20-40); Mean Corpuscular HGB Conc 34.2 g/dl (31.0-35.0); Mean Corpuscular Volume 87.6 fL (80.0-98.0); Mean Platelet Volume 9.8 fL (9.4-12.3); Monocytes Percent Auto 6.2 % (2-11); Neutrophils Absolute Auto 12.7 x10*3/uL (2.0-8.3); Neutrophils Percent Auto 81.5 % (45-73); Platelet Count 308 X10*3/uL (160-400); Red Blood Count 3.87 X10*6/uL (4.20-5.50); Red Cell Distribution Width 13.9 % (11.0-16.0); White Blood Count 15.6 X10*3/uL (4.8-10.8)
[2022-08-03 15:20] LABS: COVID-19 Test Negative (Negative); IDNOW Serial# BCCEAD1C
[2022-08-03 15:31] LABS: Alanine Aminotransferase 22 U/L (0-31); Alkaline Phosphatase 114 U/L (39-117); Anion Gap 13 (12-20); Aspartate Amino Transferase 34 U/L (5-31); Bilirubin Total 0.3 mg/dL (0.0-1.0); Blood Urea Nitrogen 41 mg/dL (9-16); Calcium 9.8 mg/dL (8.4-10.2); Carbon Dioxide 15 mmol/L (22-29); Chloride 113 mmol/L (96-108); Creatinine Clr Calc Pharmacy 32.5; Estimated Glomerular Filt Rate 56; Glucose Random 120 mg/dL (60-115); Magnesium 2.3 mg/dL (1.6-2.6); Potassium 3.4 mmol/L (3.3-5.1); Sodium 138 mmol/L (135-145); Total Protein 6.5 g/dL (6.5-8.0)
--- NOTE | 2022-08-03 15:56 | MHC.CM.ED ---
Addendum entered by Sally Cook 08/03/22 16:15: BLS transportation was offered. Patient declined and felt she could safely get home via Lyft. Original Note: Received case management consult from Keyonna SYKES. Patient came to the ER after a fall 2 days ago. Work up showed a pubic rami fracture. Physical therapy eval completed. Home therapy is recommended. Met with patient in regards to discharge planning. Patient lives alone, ambulates independently and has [employer] hours through [facility]. PCP verified. [facility] has been arranged for patient. Services include fpc and physical therapy. Lyft arranged at patient's request to transport patient home. Patient, Pam RN and Keyonna SYKES aware. Continue to monitor for d/c needs.
[2022-08-03 16:30] VITALS: BP 154/53; PULSE 73
== END 2022-08-03 16:36 | disposition home or self-care (01) ==
PROVIDERS: Physician Assistant Medical; Emergency Provider Emergency Medicine; PCP Internal Medicine
DX: S32.512A Fracture of superior rim of left pubis, initial encounter for closed fracture (principal); S92.512A Displaced fracture of proximal phalanx of left lesser toe(s), initial encounter for closed fracture; W01.0XXA Fall on same level from slipping, tripping and stumbling without subsequent striking against object, initial encounter; Z20.822 Contact with and (suspected) exposure to COVID-19; Y93.9 Activity, unspecified; Y92.480 Sidewalk as the place of occurrence of the external cause; Y99.9 Unspecified external cause status
CPT/HCPCS: 36415; 73502; 73630; 80053; 83735; 85025; 87635; 93005; 97162; 99284

== ENCOUNTER 2022-08-20 11:15 | Inpatient (IN) | payer MEDICARE, SELFPAY ==
--- NOTE | ~2022-08-20 | XR_ITS ---
EXAMINATION: XR FOOT, LEFT CLINICAL INFORMATION: Pain. COMPARISON: Left foot radiographs dated 08/03/2022. TECHNIQUE: AP and lateral of the left foot. FINDINGS: Minimally displaced fractures at the proximal 5th and probably at the proximal 4th phalanges appear unchanged. No new fracture or dislocation. No concerning lytic or blastic osseous lesion. No abnormal soft tissue calcification. Mild forefoot swelling. XR/XR foot LT 2V IMPRESSION: 1. Minimally displaced fractures at the proximal 5th and probably at the proximal 4th phalanges, unchanged. 2. Mild forefoot swelling.
--- NOTE | ~2022-08-20 | CT_ITS ---
EXAMINATION: CT ABDOMEN AND PELVIS WITHOUT CONTRAST CLINICAL INFORMATION: Urinary retention. COMPARISON: CT scan abdomen pelvis 10/13/2020 TECHNIQUE: Multidetector volumetric imaging was performed from the superior aspect of the liver through the pubic symphysis. Sagittal and coronal reformatted images were obtained on the technologist's workstation. This CT examination was performed using dose optimization techniques as appropriate, variously including the following: *Automated exposure control *Adjustment of mA and/or kV according to patient size (this includes techniques or standardized protocols for targeted exams where dose is matched to indication/reason for exam; i.e. extremities or head) *Use of iterative reconstruction technique DLP: 263 mGy-cm FINDINGS: LUNG BASES: Linear scarring at lung bases. No acute airspace disease. No pleural effusion. LIVER, GALLBLADDER, AND BILIARY TREE: The liver is normal in size, shape, and attenuation. No focal hepatic lesion or biliary ductal dilatation is present. The gallbladder is unremarkable with no evidence of radiopaque gallstones, gallbladder wall thickening, or obvious pericholecystic inflammatory changes. PANCREAS: Unremarkable. SPLEEN: Unremarkable. ADRENAL GLANDS: Unremarkable. KIDNEYS AND URETERS: Bilateral nonobstructive renal calculi. There are 2 punctate stones in the right kidney in the midpole and lower pole. There is a cluster of stones in the lower pole of the left kidney which measure 1.8 x 0.8 cm. Density measurement 1174 Hounsfield units. Stone is 4 cm from the posterior skin line. There is also a 2 mm stone in the upper pole left kidney. There are no ureteral calculi. There is no hydronephrosis. BLADDER: Unremarkable. GASTROINTESTINAL TRACT: No acute abnormality. There is no bowel wall thickening /edema. There is no bowel obstruction. There is a moderate to large volume of stool throughout the colon. The appendix is nonvisualized . There is no inflammatory change of the mesentery The small bowel loops are unremarkable. The stomach is normal. There is no hiatal hernia. ABDOMINAL WALL: No significant hernia is appreciated. LYMPH NODES: Normal. VASCULAR: Unremarkable. PELVIC VISCERA: Uterus is absent or atrophic OSSEOUS STRUCTURES: Levoscoliosis of lumbar spine. Multilevel degenerative spondylosis spine. Degenerative joint disease of hips bilateral. Comminuted fracture of the left superior pubic ramus adjacent to the left acetabulum. Displaced fracture also of the left inferior pubic ramus/ischium. CT/CT abdomen pelvis wo IV con IMPRESSION: 1. Bilateral nonobstructive renal calculi. No ureteral calculi or hydronephrosis. 2. Comminuted fracture of the left superior pubic ramus adjacent to the left acetabulum. Displaced fracture of the left inferior pubic ramus/ischium. Fleischner guidelines were followed.
--- NOTE | ~2022-08-20 | XR_ITS ---
EXAMINATION: XR PELVIS CLINICAL INFORMATION: Pubic rami fracture. COMPARISON: CT abdomen/pelvis 08/20/2022. TECHNIQUE: AP view of the pelvis. FINDINGS: Redemonstration of a left-sided superior pubic rami fracture extending to the superior acetabulum, and an inferior left-sided pubic rami fracture, not convincingly changed compared to CT from 08/20/2022. The femoral heads are well-seated in their respective acetabula. Moderate joint space narrowing with subcortical sclerosis and osteophytes in both hips suggesting degenerative osteoarthritis. Pubic symphysis is maintained. XR/XR pelvis 1-2V IMPRESSION: 1. Left-sided superior and inferior pubic rami fractures, not convincingly changed compared to CT from 08/20/2022. 2. Moderate degenerative osteoarthritis of both hips.
--- NOTE | ~2022-08-20 | XR_ITS ---
EXAMINATION: XR KNEE, LEFT CLINICAL INFORMATION: Pain. Previous fall. COMPARISON: None available. TECHNIQUE: Two views of the left knee. FINDINGS: Bones appear to be diffusely osteoporotic. Alignment is normal at patellofemoral and tibiofemoral compartments. The joint spaces are maintained. No arthritic deformity, fracture, subluxation or joint effusion. XR/XR knee LT 2V IMPRESSION: No acute findings at the left knee. No fracture or joint effusion.
[2022-08-20 11:38] VITALS: BP 111/51; PULSE 78; RESP 12; BMI 17.2
--- NOTE | 2022-08-20 11:38 | ED_ITS ---
HPI - General Adult General Chief complaint: Failure to Thrive Stated complaint: PELVIC PAIN W/INCONTINENCE SINCE HIP FX LAST MONTH Time Seen by Provider: 08/20/22 11:37 Source: patient and EMS Mode of arrival: EMS Limitations: no limitations History of Present Illness HPI narrative: 71 y.o female w/ a PMHx of villous adenoma of colon, raynauds disease, epidermal inclusion cyst, genitourinary syndrome of menopause, nephrolithiasis, stress- induced cardiomyopathy, depression, presents to the ED for continuous pain s/p fall with L-sided pelvic and toe fractures on 08/01/22, and new-onset urinary incontinence X1 day. Patient states she was recommended rehab after her pelvic fracture but declined and returned home. She has been ambulating at home with a walker, but complains of increasing pain in L hip and knee. She endorses poor P.O intake, urinary-incontinence since yesterday which is atypical for her, and general weakness. She denies fevers, chills, CP, SOB, nausea/vomiting/abdominal pain, dysuria, hematuria, numbness or tinging in lower extremities. Onset (ago): day(s) Location: pelvis and left Severity: mild Severity scale (1-10): 3 Quality: aching Pain Consistency: constant Relieving factors: none Exacerbating factors: none Associated symptoms: denies other symptoms Treatments prior to arrival: none Related Data Home Medications Medication Instructions Recorded Confirmed doxycycline hyclate 50 mg capsule 50 mg PO BID 04/06/22 08/20/22 Previous Rx's Medication Instructions Recorded foot inserts #1 ea 12/04/21 famotidine 20 mg tablet 20 mg PO BID 90 days #180 tabs 03/10/22 lorazepam 1 mg tablet 1 mg PO BID PRN anxiety 30 days 03/10/22 #60 tabs pantoprazole 40 mg tablet,delayed 40 mg PO DAILY #30 tabs 03/10/22 release temazepam 15 mg capsule 15 mg PO BEDTIME PRN sleep 30 days 03/10/22 #30 caps bisacodyl 10 mg rectal suppository 10 mg UT DAILY PRN severe 08/09/22 constipation with no bowel movement >3 days 3 days #3 ea sennosides 8.6 mg tablet (senna) 8.6 mg PO BEDTIME PRN constipation 08/09/22 30 days #30 tabs metoprolol succinate 25 mg 25 mg PO DAILY #30 tabs 08/20/22 tablet,extended release 24 hr quetiapine 50 mg tablet 50 mg PO BID 30 days #60 tabs 08/20/22 Allergies Allergy/AdvReac Type Severity Reaction Status Date / Time No Known Allergies Allergy Verified 07/21/22 10:50 Review of Systems Constitutional: Constitutional: Reports no additional constitutional complaints, Reports anorexia, Denies chills, Denies fever(s), Denies night sweats and Reports weakness Eyes: Eyes: Reports no additional eye complaints, Denies blurry vision, Denies change in vision, Denies diplopia, Denies eye discharge, Denies loss of vision and Denies eye pain ENT: Denies dizziness Cardiovascular: Cardiovascular: Reports no additional cardiovascular complaints, Denies chest pain, Denies lightheadedness, Denies Loss of Consciousness and Denies dyspnea Respiratory: Respiratory: Reports no additional respiratory complaints and Denies dyspnea Gastrointestinal: Gastrointestinal: Reports no additional gastrointestinal complaints, Denies abdominal pain, Denies melena, Denies hematochezia, Denies change in bowel habits and Denies change in stool character Genitourinary: Genitourinary: Denies hematuria, Denies urinary frequency, Denies dysuria, Reports pelvic pain, Reports urinary incontinence, Denies urinary hesitancy and Denies urinary urgency Musculoskeletal: Musculoskeletal: Reports no additional musculoskeletal complaints, Reports arthralgias (L knee, L sided hip and pelvic pain ), Denies numbness and Denies tingling Neurologic: Denies dizziness, Denies loss of vision, Denies numbness, Denies tingling and Reports weakness Psychiatric: Psychiatric: Reports no additional psychiatric complaints Endocrine: Endocrine: Reports no additional endocrine complaints Hematologic/Lymphatic: Hematologic/Lymphatic: Reports no additional hematologic/lymphatic complaints Allergic/Immunologic: Allergic/Immunologic: Reports no additional allergic/immunologic complaints PMFSH Past Medical History Attestation statement: The following information was validated with the patient. Source: old records reviewed and nursing notes reviewed Medical History Anxiety Constipation by delayed colonic transit Diarrhea Dry eyes Epidermal inclusion cyst External hemorrhoids GERD (gastroesophageal reflux disease) Hypercalcemia Hyponatremia Insomnia Raynauds disease Renal calculi UTI (urinary tract infection) Villous adenoma of colon White coat syndrome with high blood pressure but without hypertension Surgical History History of bronchoscopy History of tonsillectomy Family History Family History Father Medical history unknown Mother Dementia Alzheimers disease Mental health disorder Brother Leukemia Sister Medical history unknown Social History Social History Housing: Apartment Alcohol intake: never Patient Tobacco Use Status: Former Tobacco user Tobacco use type: Cigarette Smoked in Last 30 Days: No e-Cigarette/Vaping Use: Never Used Second Hand Smoke Exposure: No Use of substances other than those prescribed or required for medical reasons: No Advance Directives: No Advance Directives Information Provided: Yes service: No Current occupational status: retired Cognitive needs: No Hearing needs: No Vision needs: Yes Physical Exam ED Vital Signs: Vital Signs - 24 hr 08/20/22 11:38 08/20/22 12:02 08/20/22 15:32 Pulse Rate 78 78 Respiratory Rate 12 18 Blood Pressure 111/51 L 115/58 L Pulse Oximetry 100 97 Oxygen Delivery Method Room Air Room Air BMI result Body Mass Index 17.2 Const General: cooperative, no acute distress, alert and awake Nutritional Appearance: well nourished, malnourished and thin Orientation/consciousness: patient oriented x3 Limitations: no limitations HENMT Head: Yes normal to inspection and Yes atraumatic Ears: hearing grossly normal bilaterally and external ears normal General nose exam: Normal external nose present, no nasal discharge noted and no epistaxis Face and sinus: Yes normal facial exam, No abrasion and No laceration Mouth: Normal oral and palatal mucosa present, no drooling and no muffled voice Eyes General: appearance normal, both eyes and all related structures Periorbital: periorbital findings normal Eyelids: Yes eyelids normal Conjunctivae: conjunctivae normal Pupils: Equal, round and reactive pupils present EOM: EOMs intact bilaterally Neck Neck: Yes normal visual inspection, Yes full ROM and Yes no lymphadenopathy Chest Chest palpation & inspection: normal inspection of the chest Resp Effort & Inspection: normal respiratory effort and able to speak in complete sentences Auscultation: clear to auscultation bilaterally Cardio Rate: regular rate Rhythm: regular rhythm GI Inspection: Yes normal to inspection Palpation (GI): Soft to palpation, not firm, nontender and no guarding General: Yes no CVA tenderness Back/Spine/Pelvis Back: no CVA tenderness Cervical Spine: cervical ROM normal Thoracic/Lumbar Spine: thoracic and lumbar spine normal to inspection and thoraco-lumbar ROM normal Neuro General: patient oriented x3 and moves all extremities Cranial nerves: Yes Equal, round and reactive pupils present Cognition (Neuro): normal cognition Motor exam (neuro): 5/5 motor strength present throughout Sensory Exam: Normal double simultaneous stimulation for sensation Coordination: [id number] test normal Extrem General: Yes normal to inspection, Yes full ROM and Yes capillary refill normal Right lower extremity: normal to inspection Left lower extremity: hip/thigh (Mildly TTP), knee (TTP ) and foot (Ecchymosis to second and third toes, consisited with known fractures. ) Details: ecchymosis Psych Appearance: grossly normal Mental Status: mental status grossly normal Affect: normal affect Attitude: cooperative Thought process: Normal thought process present Thought content: Normal thought content present Insight: Good insight present (Psych) Medications Administered Generic Name Dose Route Start Last Admin Trade Name Freq PRN Reason Stop Dose Admin Potassium Chloride 10 meq in 100 mls @ 100 mls/hr 08/20/22 13:00 08/20/22 15:35 Potassium Chloride/H20 IV 08/20/22 16:59 100 mls/hr Q1H DEEPALI Administration Discontinued Medications Generic Name Dose Route Start Last Admin Trade Name Freq PRN Reason Stop Dose Admin Potassium Chloride 40 meq 08/20/22 12:46 08/20/22 13:10 Potassium Chloride Packet 20 Meq Packet PO 08/20/22 12:47 40 meq ONCE ONE Administration Medical Decision Making Medical Decision Making MDM Narrative: 71 y.o female w/ a PMHx of villous adenoma of colon, raynauds disease, epidermal inclusion cyst, genitourinary syndrome of menopause, nephrolithiasis, stress- induced cardiomyopathy, depression, presents to the ED for continuous pain s/p fall with L-sided pelvic and toe fractures on 08/01/22, and new-onset urinary incontinence X1 day. On exam patient is frail appearing with facial palor, NAD, VSS. L hip, and knee mildly TTP without ecchymosis or obvious deformity. Second and third toe on L foot has some eccymosis consistent with known fractures. Lungs CTA, abdomen soft, non-tender. Patient was straight cathed and found to have 1,400ml in her bladder. Patient's labs showed hypokalemia of 2.8 with elevated WBC count of 16.2. I spoke to the hospitalist who agreed to admission. Differential Diagnosis Differential Diagnoses: The differential diagnosis associated with the pres entation includes hypokalemia, urinary retention Consult Healthcare Provider Management of the patient was discussed with: Hospitalist (agreed to admission) Lab Data MDM Lab Attestation statement: I reviewed the patient's lab results. 08/20/22 12:15 08/20/22 12:15 Labs: Lab Results 08/20/22 08/20/22 08/20/22 Range/Units 12:15 12:15 14:24 WBC 16.2 H (4.8-10.8) X10*3/uL RBC 3.33 L (4.20-5.50) X10*6/uL Hgb 9.9 L (12.0-16.0) g/dl Hct 29.6 L (37.0-47.0) % MCV 88.9 (80.0-98.0) fL MCH 29.7 (27.0-33.0) pg MCHC 33.4 (31.0-35.0) g/dl RDW 15.7 (11.0-16.0) % Plt Count 436 H D (160-400) X10*3/uL MPV 9.1 L (9.4-12.3) fL Immature Gran % (Auto) 0.5 H (0.0-0.4) % Neut % (Auto) 85.2 H (45-73) % Lymph % (Auto) 8.3 L (20-40) % [place] % (Auto) 5.6 (2-11) % Eos % (Auto) 0.1 (0-4) % Baso % (Auto) 0.3 (0-2) % Lymph # (Auto) 1.3 (1.2-4.9) X10*3/uL [place] # (Auto) 0.9 (0.1-1.2) X10*3/uL Eos # (Auto) 0.0 (0.0-0.4) X10*3/uL Baso # (Auto) 0.1 (0.0-0.2) X10*3/uL Abs Immat Gran (auto) 0.08 H (0.00-0.03) X10*3/uL Absolute Neuts (auto) 13.9 H (2.0-8.3) x10*3/uL Absolute Nucleated RBC 0.000 (0.0-0.012) X10*3/uL Nucleated RBC % (auto) 0.0 (0.0-0.2) /100WBC Sodium 140 (135-145) mmol/L Potassium 2.8 L (3.3-5.1) mmol/L Chloride 109 H (96-108) mmol/L Carbon Dioxide 17 L (22-29) mmol/L Anion Gap 17 (12-20) BUN 50 H (9-16) mg/dL Creatinine 1.21 (0.5-1.4) mg/dL Estim Creat Clear Calc 26.0 Estimated GFR 44 Random Glucose 107 (60-115) mg/dL Calcium 10.4 H D (8.4-10.2) mg/dL Magnesium 2.8 H (1.6-2.6) mg/dL Total Bilirubin 0.5 (0.0-1.0) mg/dL AST 40 H (5-31) U/L ALT 28 (0-31) U/L Alkaline Phosphatase 320 H (39-117) U/L Total Protein 6.1 L (6.5-8.0) g/dL Albumin 3.7 (3.5-5.0) g/dL Urine Color Yellow Urine Appearance Clear Urine pH 6.0 (5.0-9.0) Ur Specific [place] 1.015 (1.005-1.025) Urine Protein 30 (1+) H (Neg-Trace) mg/dL Urine Glucose (UA) Negative (Negative) mg/dL Urine Ketones Negative (Negative) mg/dL Urine Blood Negative (Negative) Urine Nitrite Negative (Negative) Ur Leukocyte Esterase Negative (Negative) COVID-19 (ADI) (Negative) COVID-19 Clin Com 08/20/22 Range/Units 15:49 WBC (4.8-10.8) X10*3/uL RBC (4.20-5.50) X10*6/uL Hgb (12.0-16.0) g/dl Hct (37.0-47.0) % MCV (80.0-98.0) fL MCH (27.0-33.0) pg MCHC (31.0-35.0) g/dl RDW (11.0-16.0) % Plt Count (160-400) X10*3/uL MPV (9.4-12.3) fL Immature Gran % (Auto) (0.0-0.4) % Neut % (Auto) (45-73) % Lymph % (Auto) (20-40) % [place] % (Auto) (2-11) % Eos % (Auto) (0-4) % Baso % (Auto) (0-2) % Lymph # (Auto) (1.2-4.9) X10*3/uL [place] # (Auto) (0.1-1.2) X10*3/uL Eos # (Auto) (0.0-0.4) X10*3/uL Baso # (Auto) (0.0-0.2) X10*3/uL Abs Immat Gran (auto) (0.00-0.03) X10*3/uL Absolute Neuts (auto) (2.0-8.3) x10*3/uL Absolute Nucleated RBC (0.0-0.012) X10*3/uL Nucleated RBC % (auto) (0.0-0.2) /100WBC Sodium (135-145) mmol/L Potassium (3.3-5.1) mmol/L Chloride (96-108) mmol/L Carbon Dioxide (22-29) mmol/L Anion Gap (12-20) BUN (9-16) mg/dL Creatinine (0.5-1.4) mg/dL Estim Creat Clear Calc Estimated GFR Random Glucose (60-115) mg/dL Calcium (8.4-10.2) mg/dL Magnesium (1.6-2.6) mg/dL Total Bilirubin (0.0-1.0) mg/dL AST (5-31) U/L ALT (0-31) U/L Alkaline Phosphatase (39-117) U/L Total Protein (6.5-8.0) g/dL Albumin (3.5-5.0) g/dL Urine Color Urine Appearance Urine pH (5.0-9.0) Ur Specific [place] (1.005-1.025) Urine Protein (Neg-Trace) mg/dL Urine Glucose (UA) (Negative) mg/dL Urine Ketones (Negative) mg/dL Urine Blood (Negative) Urine Nitrite (Negative) Ur Leukocyte Esterase (Negative) COVID-19 (ADI) Negative (Negative) COVID-19 Clin Com See Note Independent Interpretation I performed an independent interpretation of an: Plain X-Ray Interpretation: My interpretation is in agreement with the radiologist's impression of this imaging study. EXAMINATION: XR KNEE, LEFT CLINICAL INFORMATION: Pain. Previous fall.? COMPARISON: None available.? TECHNIQUE: Two views of the left knee. FINDINGS: Bones appear to be diffusely osteoporotic. Alignment is normal at patellofemoral and tibiofemoral compartments. The joint spaces are maintained. No arthritic deformity, fracture, subluxation or joint effusion.? XR/XR knee LT 2V IMPRESSION: No acute findings at the left knee. No fracture or joint effusion. Dictated By: Keenan Higgins MD Signed By: Electronically signed by Keenan Higgins MD 08/20/22 [id number] Independent Historian Clinical information obtained from an independent historian. History obtained from or confirmed by: EMS Critical Care Time Critical Care Time Critical Care Time: Yes Total Critical Care Time: 45 Attestation: I spent 45 minutes of Critical Care Time with this patient. This does not include time spent on separately reported billable procedures. Discharge Plan Discharge Clinical Impression: Acute hypokalemia, Closed pelvic fracture, Acute urinary retention Patient Disposition: Admitted As Inpatient
[2022-08-20 12:02] VITALS: PULSE 72; O2SAT 100
--- NOTE | 2022-08-20 12:19 | PC.NURSE ---
Patient alert and oriented, calm and cooperative. Patient thin and frail appearing. Patient incontinent when she first arrived; albin care provided.
[2022-08-20 12:20] LABS: MANUAL DIFF FLAG NO
[2022-08-20 12:22] LABS: Basophils Absolute Auto 0.1 X10*3/uL (0.0-0.2); Basophils Percent Auto 0.3 % (0-2); Eosinophils Percent Auto 0.1 % (0-4); Hematocrit 29.6 % (37.0-47.0); Hemoglobin 9.9 g/dl (12.0-16.0); Imm Gran Abs Auto 0.08 X10*3/uL (0.00-0.03); Imm Gran Pct Auto 0.5 % (0.0-0.4); Lymphocytes Absolute Auto 1.3 X10*3/uL (1.2-4.9); Lymphocytes Percent Auto 8.3 % (20-40); Mean Corpuscular HGB Conc 33.4 g/dl (31.0-35.0); Mean Corpuscular Hemoglobin 29.7 pg (27.0-33.0); Mean Corpuscular Volume 88.9 fL (80.0-98.0); Mean Platelet Volume 9.1 fL (9.4-12.3); Monocytes Absolute Auto 0.9 X10*3/uL (0.1-1.2); Monocytes Percent Auto 5.6 % (2-11); Neutrophils Absolute Auto 13.9 x10*3/uL (2.0-8.3); Neutrophils Percent Auto 85.2 % (45-73); Platelet Count 436 X10*3/uL (160-400); Red Blood Count 3.33 X10*6/uL (4.20-5.50); Red Cell Distribution Width 15.7 % (11.0-16.0); White Blood Count 16.2 X10*3/uL (4.8-10.8)
[2022-08-20 12:43] LABS: Alanine Aminotransferase 28 U/L (0-31); Albumin Level 3.7 g/dL (3.5-5.0); Alkaline Phosphatase 320 U/L (39-117); Anion Gap 17 (12-20); Aspartate Amino Transferase 40 U/L (5-31); Bilirubin Total 0.5 mg/dL (0.0-1.0); Blood Urea Nitrogen 50 mg/dL (9-16); Calcium 10.4 mg/dL (8.4-10.2); Carbon Dioxide 17 mmol/L (22-29); Chloride 109 mmol/L (96-108); Estimated Glomerular Filt Rate 44; Glucose Random 107 mg/dL (60-115); Magnesium 2.8 mg/dL (1.6-2.6); Potassium 2.8 mmol/L (3.3-5.1); Sodium 140 mmol/L (135-145); Total Protein 6.1 g/dL (6.5-8.0)
[2022-08-20] MEDS: Potassium Chloride Packet 20 MEQ PACKET 40 MEQ PO (13:10)
[2022-08-20] MEDS: Potassium Chloride/H20 10 MEQ/100 ML PIGGYBACK 100 MEQ IV ×4 (13:13→16:54)
--- NOTE | 2022-08-20 14:40 | PC.NURSE ---
straight cathed the pt, abd was very distended and firm, emptied out 1400ml of yellow urine. pt tolerated the procedure well. md aware of these findings
[2022-08-20 14:52] LABS: Appearance Urine Clear; Color Urine Yellow; Glucose Urine UA Negative (Negative); Leukocyte Esterase Urine Negative (Negative); Nitrite Urine Negative (Negative); Specific Gravity - Urine 1.015 (1.005-1.025); UMIC TRIGGER UACC YES; Urine Blood Negative (Negative); Urine Ketones Negative (Negative); Urine Protein 30 (1+) mg/dL (Neg-Trace)
[2022-08-20 15:32] VITALS: BP 115/58; PULSE 78; RESP 18; O2SAT 97
--- NOTE | 2022-08-20 16:06 | PHA.MEDREC ---
Pharmacy Consult ? Medication Reconciliation Pharmacy has completed the medication reconciliation. Patient had a list with her
--- NOTE | 2022-08-20 16:17 | PM.IMHP ---
History of Present Illness Date of Service: 08/20/22 Chief Complaint: Urinary incontinence 71F PMH moderate protein calorie malnutrition, stress-induced cardiomyopathy with recovered ejection fraction, Raynaud's, GERD, mood disorder presented with complaints of urinary incontinence. Patient was seen in the ER 08/03/2022 after mechanical fall found to have pelvic fracture, patient was not interested in placement at that time and was sent home with PT. Patient states she has been able to ambulate with walker, however, has noted abdominal bloating in the last couple days and urinary incontinence. In ED noted to have hypokalemia of 2.8, urinary retention with residual of 1400 cc. Review of Systems Review of Systems: Yes all other systems are reviewed and are negative [facility] Medical History Anxiety Constipation by delayed colonic transit Diarrhea Dry eyes Epidermal inclusion cyst External hemorrhoids GERD (gastroesophageal reflux disease) Hypercalcemia Hyponatremia Insomnia Raynauds disease Renal calculi UTI (urinary tract infection) Villous adenoma of colon White coat syndrome with high blood pressure but without hypertension Family History Father Medical history unknown Mother Dementia Alzheimers disease Mental health disorder Brother Leukemia Sister Medical history unknown Surgical History History of bronchoscopy History of tonsillectomy Social History Housing: Apartment Alcohol intake: never Patient Tobacco Use Status: Former Tobacco user Tobacco use type: Cigarette Smoked in Last 30 Days: No e-Cigarette/Vaping Use: Never Used Second Hand Smoke Exposure: No Use of substances other than those prescribed or required for medical reasons: No Advance Directives: No Advance Directives Information Provided: Yes service: No Current occupational status: retired Cognitive needs: No Hearing needs: No Vision needs: Yes Meds Allergies Allergy/AdvReac Type Severity Reaction Status Date / Time No Known Allergies Allergy Verified 07/21/22 10:50 Active Medications: Current Medications Bisacodyl (Bisacodyl 10 Mg Supp.Rect) 10 mg DC DAILY PRN PRN Reason: severe constipation with no bowel movement >3 days Famotidine (Famotidine 20 Mg Tablet) 20 mg PO BID DEEPALI Potassium Chloride (Potassium Chloride/H20) 10 meq in 100 mls @ 100 mls/hr IV Q1H DEEPALI Stop: 08/20/22 16:59 Last Admin: 08/20/22 15:35 Dose: 100 mls/hr Lorazepam (Lorazepam 1 Mg Tablet) 1 mg PO BID PRN PRN Reason: anxiety Metoprolol Succinate (Metoprolol Succinate Er 25 Mg Tab.Er.24h) 25 mg PO DAILY [facility]; Protocol Non-Formulary Medication (Doxycycline Hyclate) 50 mg PO BID [facility] Non-Formulary Medication (Pantoprazole) 40 mg PO DAILY [facility] Pharmacy Consult (Consult Rx Perform Med Rec) 1 each MISCELLANE ONCE PRN PRN Reason: Consult order Quetiapine Fumarate (Quetiapine Fumarate 50 Mg Tablet) 50 mg PO BID [facility] Senna (Sennosides 8.6 Mg Tablet) 8.6 mg PO BEDTIME PRN PRN Reason: constipation Temazepam (Temazepam 15 Mg Capsule) 15 mg PO BEDTIME PRN PRN Reason: sleep Home Medications Medication Instructions Recorded Confirmed Last Taken Type doxycycline hyclate 50 mg capsule 50 mg PO BID 04/06/22 08/20/22 Unknown History Physical Exam Vital Signs and Narrative: Vital Signs: Last Vital Signs Pulse 78 08/20/22 15:32 Resp 18 08/20/22 15:32 BP 115/58 L 08/20/22 15:32 Pulse Ox 97 08/20/22 15:32 O2 Del Method 08/20/22 15:32 BMI result Body Mass Index 17.2 General: AO X 3, no acute distress, Frail-appearing Resp: CTA bilateral, no accessory muscles used CVS: S1,S2,RRR GI: soft, non tender, non distended Neuro: motor grossly intact, alert Psych: appropriate affect, appropriate insight Results Labs 08/20/22 12:15 08/20/22 12:15 Labs: Laboratory Results - last 24 hr 08/20/22 08/20/22 08/20/22 12:15 12:15 14:24 MCV 88.9 MCH 29.7 MCHC 33.4 RDW 15.7 Plt Count 436 H D MPV 9.1 L Immature Gran % (Auto) 0.5 H Neut % (Auto) 85.2 H Lymph % (Auto) 8.3 L [place] % (Auto) 5.6 Eos % (Auto) 0.1 Baso % (Auto) 0.3 Lymph # (Auto) 1.3 [place] # (Auto) 0.9 Eos # (Auto) 0.0 Baso # (Auto) 0.1 Abs Immat Gran (auto) 0.08 H Absolute Neuts (auto) 13.9 H Absolute Nucleated RBC 0.000 Nucleated RBC % (auto) 0.0 Anion Gap 17 Estim Creat Clear Calc 26.0 Estimated GFR 44 Random Glucose 107 Calcium 10.4 H D Magnesium 2.8 H Total Bilirubin 0.5 AST 40 H ALT 28 Alkaline Phosphatase 320 H Total Protein 6.1 L Albumin 3.7 Urine Color Yellow Urine Appearance Clear Urine pH 6.0 Ur Specific [place] 1.015 Urine Protein 30 (1+) H Urine Glucose (UA) Negative Urine Ketones Negative Urine Blood Negative Urine Nitrite Negative Ur Leukocyte Esterase Negative Imaging Radiologist's Impressions: Impressions Knee X-Ray 08/20/22 12:43 IMPRESSION: No acute findings at the left knee. No fracture or joint effusion. Assessment and Plan (1) Depression: Qualifiers: Depression Type: other depression Qualified Code(s): F32.89 - Other specified depressive episodes Status: Acute Plan 71F PMH moderate protein calorie malnutrition, stress-induced cardiomyopathy with recovered ejection fraction, Raynaud's, GERD, mood disorder presented with complaints of urinary incontinence, found to have urinary retention and hypokalemia urinary retention Lou, check CT abdomen hypokalemia replace and monitor metabolic acidosis check VBG, monitor history of stress-induced cardiomyopathy with recovered ejection fraction continue metoprolol moderate protein calorie malnutrition encourage intake GERD PPI insomnia temazepam mood disorder Seroquel DVT prophylaxis with Lovenox full code patient was significant hypokalemia below 3 and significant urinary retention and electrolyte abnormalities, at risk for further decompensation due to frailty and malnutrition, therefore, expected require at least 2 midnights inpatient Time Spent With Patient Time: Total time managing care of this patient today ____ minutes. Quality Stroke Does the patient have a stroke diagnosis?: No VTE Prior VTE?: No VTE Risk Level:: Medical - moderate - high VTE Device Contraindication: Treatment Not Indicated VTE Drug Contraindication: N/A - Med Ordered
[2022-08-20 16:27] LABS: COVID-19 Test Negative (Negative); IDNOW Serial# 9DB6401D
[2022-08-20 16:50] LABS: Bacteria Urine None Seen (None Seen); Hyaline Casts Urine 0-2 /LPF (0-2); RBC Urine 0-2 /HPF (0-2); Squamous Epithelial Cell Urine 0-2 /HPF (0-2); WBC Urine 0-5 /HPF (0-5)
--- NOTE | 2022-08-20 17:12 | PC.NURSE ---
report given to imc rn
[2022-08-20 17:44] VITALS: BP 109/53; PULSE 72; RESP 16; TEMP 36.2; O2SAT 98
[2022-08-20 19:18] VITALS: BP 163/80; PULSE 72; RESP 20; TEMP 36.7; O2SAT 98
[2022-08-20] MEDS: QUEtiapine Fumarate 50 MG TABLET PO (19:28)
[2022-08-20] MEDS: LORazepam 1 MG TABLET PO (19:28)
[2022-08-20] MEDS: Temazepam 15 MG CAPSULE PO (19:28)
[2022-08-20] MEDS: Famotidine 20 MG TABLET PO (19:28)
[2022-08-21] VITALS: BP 109/67; PULSE 79; RESP 14; TEMP 37.3; O2SAT 96
[2022-08-21 03:25] VITALS: BP 94/43; PULSE 70; RESP 14; TEMP 36.9; O2SAT 99
[2022-08-21 07:02] LABS: Venous Blood Gas Refer to POC result
[2022-08-21 07:04] LABS: Hematocrit 25.5 % (37.0-47.0); Hemoglobin 8.6 g/dl (12.0-16.0); Mean Corpuscular HGB Conc 33.7 g/dl (31.0-35.0); Mean Corpuscular Volume 88.9 fL (80.0-98.0); Mean Platelet Volume 9.4 fL (9.4-12.3); Platelet Count 389 X10*3/uL (160-400); Red Blood Count 2.87 X10*6/uL (4.20-5.50); Red Cell Distribution Width 15.9 % (11.0-16.0); White Blood Count 16.1 X10*3/uL (4.8-10.8)
[2022-08-21 07:06] LABS: VBG Base Excess -9.3 mmol/L; VBG HCO3 15 mmol/L (22-26); VBG pCO2 27 mmHg; VBG pH 7.34 (7.32-7.43); VBG pO2 41 mmHg
[2022-08-21 07:22] LABS: Alanine Aminotransferase 17 U/L (0-31); Albumin Level 2.7 g/dL (3.5-5.0); Alkaline Phosphatase 275 U/L (39-117); Anion Gap 9 (12-20); Aspartate Amino Transferase 22 U/L (5-31); Bilirubin Direct < 0.2 mg/dL (0.0-0.5); Bilirubin Total 0.5 mg/dL (0.0-1.0); Blood Urea Nitrogen 38 mg/dL (9-16); Calcium 9.5 mg/dL (8.4-10.2); Carbon Dioxide 18 mmol/L (22-29); Chloride 114 mmol/L (96-108); Creatinine Clr Calc Pharmacy 31.2; Estimated Glomerular Filt Rate 54; Glucose Fasting 86 mg/dL (60-99); Potassium 3.3 mmol/L (3.3-5.1); Sodium 138 mmol/L (135-145); Total Protein 4.7 g/dL (6.5-8.0)
[2022-08-21 07:51] VITALS: BP 117/55; PULSE 78; RESP 19; TEMP 37.1; O2SAT 97
[2022-08-21 08:00] LABS: Iron 20 mcg/dL (30-160); Percent Iron Saturation 14 % (15-50); Total Iron Binding Capacity 143 mcg/dL (228-428); Unsaturated Iron Binding 123 ug/dL
[2022-08-21 08:11] LABS: Creatinine Urine 52.66 mg/dL; Potassium Urine Random 36.9 mmol/L
[2022-08-21 08:21] LABS: Ferritin 251 ng/mL (10-250)
[2022-08-21 08:36] VITALS: BP 117/55; PULSE 78; O2SAT 97
--- NOTE | 2022-08-21 08:40 | MHC.CM.PN ---
CM met with Patient at bedside and addressed IMM with her, providing her with the original and placing a copy on the chart. Patient lives alone in a house and uses a walker to assist with mobility. Patient is active with [facility] and PT has already verbally recommended STR. Patient is agreeable to a SNF search and hopes to stay in this area. CM has initiated and will follow for dc planning. PCP is Dr. Aniyah Heredia and Patient has received Covid vax x3.
[2022-08-21] MEDS: Enoxaparin Sodium 30 MG/0.3 ML SYRINGE SUBCUT (09:08)
[2022-08-21] MEDS: QUEtiapine Fumarate 50 MG TABLET PO ×2 (09:08→20:19)
[2022-08-21] MEDS: Potassium Chloride ER 20 MEQ TAB.ER.PRT 40 MEQ PO (09:08)
[2022-08-21] MEDS: Famotidine 20 MG TABLET PO (09:09)
[2022-08-21] MEDS: 0.9 % Sodium Chloride Flush 3 ML SYRINGE IVFLUSH (09:09)
[2022-08-21] MEDS: Metoprolol Succinate ER 25 MG TAB.ER.24H PO (09:09)
[2022-08-21] MEDS: Omeprazole 20 MG CAPSULE.DR PO (09:09)
[2022-08-21] MEDS: LORazepam 1 MG TABLET PO ×2 (09:10→20:22)
--- NOTE | 2022-08-21 09:49 | HO.PM.IMPN ---
Subjective Subjective Date of Service: 08/21/22 Interval History: cc: urinary incontinence interval history: pelvic pain with ambualtion, requested indwelling mcdonald as too much pain with intermittent cath Physical Exam Vital Signs: Vital Signs: Last Vital Signs Temp 98.7 F 08/21/22 07:51 Pulse 78 08/21/22 08:36 Resp 19 08/21/22 07:51 BP 117/55 L 08/21/22 08:36 Pulse Ox 97 08/21/22 08:36 O2 Del Method 08/21/22 07:51 BMI result Body Mass Index 17.2 frail, oriented times 3, abd non distended Objective Data Active Medications Bisacodyl (Bisacodyl 10 Mg Supp.Rect) 10 mg MD DAILY PRN PRN Reason: severe constipation with no bowel movement >3 days Enoxaparin Sodium (Enoxaparin Sodium 30 Mg/0.3 Ml Syringe) 30 mg SUBCUT Q24H [facility] Last Admin: 08/21/22 09:08 Dose: 30 mg Documented By: CHRIS Famotidine (Famotidine 20 Mg Tablet) 20 mg PO BID [facility] Last Admin: 08/21/22 09:09 Dose: 20 mg Documented By: CHRIS Lorazepam (Lorazepam 1 Mg Tablet) 1 mg PO BID PRN PRN Reason: anxiety Last Admin: 08/21/22 09:10 Dose: 1 mg Documented By: CHRIS Metoprolol Succinate (Metoprolol Succinate Er 25 Mg Tab.Er.24h) 25 mg PO DAILY [facility]; Protocol Last Admin: 08/21/22 09:09 Dose: 25 mg Documented By: CHRIS Non-Formulary Medication (Doxycycline Hyclate) 50 mg PO BID [facility] Omeprazole (Omeprazole 20 Mg Capsule.Dr) 20 mg PO DAILY [facility] Last Admin: 08/21/22 09:09 Dose: 20 mg Documented By: CHRIS Pharmacy Consult (Consult Rx Perform Med Rec) 1 each MISCELLANE ONCE PRN PRN Reason: Consult order Quetiapine Fumarate (Quetiapine Fumarate 50 Mg Tablet) 50 mg PO BID [facility] Last Admin: 08/21/22 09:08 Dose: 50 mg Documented By: CHRIS Senna (Sennosides 8.6 Mg Tablet) 8.6 mg PO BEDTIME PRN PRN Reason: constipation Sodium Chloride (0.9 % Sodium Chloride Flush 3 Ml Syringe) 3 ml IVFLUSH QSHIFT [facility]EEPALI Last Admin: 08/21/22 09:09 Dose: 3 ml Documented By: CHRIS Temazepam (Temazepam 15 Mg Capsule) 15 mg PO BEDTIME PRN PRN Reason: sleep Last Admin: 08/20/22 19:28 Dose: 15 mg Documented By: LILIBETH Labs 08/21/22 06:55 08/21/22 06:55 Labs: Laboratory Results - last 24 hr 08/20/22 08/20/22 08/20/22 12:15 12:15 14:24 MCV 88.9 MCH 29.7 MCHC 33.4 RDW 15.7 Plt Count 436 H D MPV 9.1 L Immature Gran % (Auto) 0.5 H Neut % (Auto) 85.2 H Lymph % (Auto) 8.3 L Benzie % (Auto) 5.6 Eos % (Auto) 0.1 Baso % (Auto) 0.3 Lymph # (Auto) 1.3 Benzie # (Auto) 0.9 Eos # (Auto) 0.0 Baso # (Auto) 0.1 Abs Immat Gran (auto) 0.08 H Absolute Neuts (auto) 13.9 H Absolute Nucleated RBC 0.000 Nucleated RBC % (auto) 0.0 VBG pH VBG pCO2 VBG pO2 VBG HCO3 VBG O2 Saturation VBG Base Excess Anion Gap 17 Estim Creat Clear Calc 26.0 Estimated GFR 44 Random Glucose 107 Fasting Glucose Calcium 10.4 H D Magnesium 2.8 H Iron TIBC % Saturation Unsat Iron Binding Ferritin Total Bilirubin 0.5 Direct Bilirubin AST 40 H ALT 28 Alkaline Phosphatase 320 H Total Protein 6.1 L Albumin 3.7 Urine Color Yellow Urine Appearance Clear Urine pH 6.0 Ur Specific [place] 1.015 Urine Protein 30 (1+) H Urine Glucose (UA) Negative Urine Ketones Negative Urine Blood Negative Urine Nitrite Negative Ur Leukocyte Esterase Negative Urine RBC 0-2 Urine WBC 0-5 Ur Squamous Epith Cells 0-2 Urine Bacteria None Seen Hyaline Casts 0-2 Ur Random Sodium Ur Random Potassium Urine Creatinine COVID-19 (ADI) COVID-19 Clin Com 08/20/22 08/20/22 08/21/22 14:24 15:49 06:55 MCV 88.9 MCH 30.0 MCHC 33.7 RDW 15.9 Plt Count 389 MPV 9.4 Immature Gran % (Auto) Neut % (Auto) Lymph % (Auto) Benzie % (Auto) Eos % (Auto) Baso % (Auto) Lymph # (Auto) Benzie # (Auto) Eos # (Auto) Baso # (Auto) Abs Immat Gran (auto) Absolute Neuts (auto) Absolute Nucleated RBC 0.000 Nucleated RBC % (auto) 0.0 VBG pH VBG pCO2 VBG pO2 VBG HCO3 VBG O2 Saturation VBG Base Excess Anion Gap Estim Creat Clear Calc Estimated GFR Random Glucose Fasting Glucose Calcium Magnesium Iron TIBC % Saturation Unsat Iron Binding Ferritin Total Bilirubin Direct Bilirubin AST ALT Alkaline Phosphatase Total Protein Albumin Urine Color Urine Appearance Urine pH Ur Specific [place] Urine Protein Urine Glucose (UA) Urine Ketones Urine Blood Urine Nitrite Ur Leukocyte Esterase Urine RBC Urine WBC Ur Squamous Epith Cells Urine Bacteria Hyaline Casts Ur Random Sodium 21.0 Ur Random Potassium 36.9 Urine Creatinine 52.66 COVID-19 (ADI) Negative COVID-19 Clin Com See Note 08/21/22 08/21/22 06:55 06:59 MCV MCH MCHC RDW Plt Count MPV Immature Gran % (Auto) Neut % (Auto) Lymph % (Auto) Benzie % (Auto) Eos % (Auto) Baso % (Auto) Lymph # (Auto) Benzie # (Auto) Eos # (Auto) Baso # (Auto) Abs Immat Gran (auto) Absolute Neuts (auto) Absolute Nucleated RBC Nucleated RBC % (auto) VBG pH 7.34 VBG pCO2 27 VBG pO2 41 VBG HCO3 15 L VBG O2 Saturation 69.0 VBG Base Excess -9.3 Anion Gap 9 L Estim Creat Clear Calc 31.2 Estimated GFR 54 Random Glucose Fasting Glucose 86 Calcium 9.5 D Magnesium Iron 20 L TIBC 143 L % Saturation 14 L Unsat Iron Binding 123 Ferritin 251 H Total Bilirubin 0.5 Direct Bilirubin < 0.2 AST 22 ALT 17 Alkaline Phosphatase 275 H Total Protein 4.7 L Albumin 2.7 L Urine Color Urine Appearance Urine pH Ur Specific [place] Urine Protein Urine Glucose (UA) Urine Ketones Urine Blood Urine Nitrite Ur Leukocyte Esterase Urine RBC Urine WBC Ur Squamous Epith Cells Urine Bacteria Hyaline Casts Ur Random Sodium Ur Random Potassium Urine Creatinine COVID-19 (ADI) COVID-19 Clin Com Assessment and Plan (1) Acute hypokalemia: Status: Acute Plan 71F PMH? 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 temazepam ?mood disorder ?Seroquel ?DVT prophylaxis with Lovenox ?full code reason for continued hospitalization:anemia monitoring, ortho eval Time Spent With Patient Time: Total time managing care of this patient today ____ minutes. Quality Stroke Does the patient have a stroke diagnosis?: No VTE Prior VTE?: No VTE Risk Level:: Medical - moderate - high VTE Device Contraindication: Treatment Not Indicated VTE Drug Contraindication: N/A - Med Ordered
[2022-08-21 09:53] LABS: Chloride Urine Random < 20.1 mmol/L
[2022-08-21] MEDS: Ferrous Sulfate 324 MG TABLET.DR PO (10:25)
[2022-08-21] MEDS: Sennosides 8.6 MG TABLET PO (10:42)
[2022-08-21] MEDS: oxyCODONE HCl Immed Release 5 MG TABLET PO (10:42)
[2022-08-21 14:26] VITALS: BMI 17.2
--- NOTE | 2022-08-21 14:32 | PM.EVENT ---
Event Note Date of Service: 08/21/22 Event Note: GI consult dictated Iron def anemia, no sign of active bleeding She declines colonoscopy Miralax for constipation, iron supplementation. Time Spent With Patient Time: Total time managing care of this patient today ____ minutes.
[2022-08-21 15:34] VITALS: BP 91/53; PULSE 77; RESP 16; TEMP 37.5; O2SAT 98
[2022-08-21 20:00] VITALS: BP 111/55; PULSE 81; RESP 16; TEMP 37.5; O2SAT 95
[2022-08-21] MEDS: Temazepam 15 MG CAPSULE PO (20:22)
[2022-08-22] MEDS: 0.9 % Sodium Chloride Flush 3 ML SYRINGE IVFLUSH ×4 (00:20→20:08)
--- NOTE | 2022-08-22 01:11 | CONS_ITS ---
DATE OF SERVICE: 08/21/2022 REFERRING PHYSICIAN: Amos Spicer MD REASON FOR CONSULTATION: Iron deficiency anemia. HISTORY OF PRESENT ILLNESS: The patient is a pleasant 71-year-old woman, who was admitted to the hospital yesterday with complaints of abdominal bloating, urinary incontinence, and found to have electrolyte abnormalities. She was recently diagnosed with a pelvic fracture in late July after a fall. She was admitted to the hospital and had lab work documenting anemia with a hematocrit this morning of 25.5 down from 29.6 yesterday. Previous hematocrit on August 03 was 33.9. Iron studies were obtained, which show a serum iron level of 20 with a saturation of 14%, consistent with iron deficiency. There has been no reported GI bleeding. She did have imaging of the abdomen and pelvis which re-demonstrated her fractures. The patient describes undergoing colonoscopy around 2017 in [place] with removal of an adenomatous polyp. A 3-year followup was recommended and she was seen as an outpatient for this, but declined to follow through on the procedure stating it was too much trouble. She continues to decline to undergo colonoscopy. PAST MEDICAL HISTORY: 1. Recent pelvic fracture as above. 2. Colon polyps. 3. Iron deficiency anemia. 4. Protein-calorie malnutrition. 5. Cardiomyopathy, stress-induced. 6. Raynaud disease. 7. Gastroesophageal reflux disease. 8. Mood disorder. 9. Anxiety. CURRENT MEDICATIONS: Her current medication list is reviewed in the chart. ALLERGIES: THERE ARE NONE REPORTED. FAMILY HISTORY: This is reviewed with the patient and is noncontributory. SOCIAL HISTORY: She denies tobacco, alcohol, or substance abuse. REVIEW OF SYSTEMS: SKIN: No pruritus. HEENT: Negative. CARDIOPULMONARY: No shortness of breath or chest pain. GASTROINTESTINAL: As above. She does complain of constipation. GENITOURINARY: Negative. NEUROPSYCHIATRIC: Negative. PHYSICAL EXAMINATION: GENERAL: Shows a pleasant female, who appears cachectic, lying in bed. VITAL SIGNS: Reviewed in the electronic medical record and are stable. SKIN: Anicteric. HEENT: Shows no scleral icterus. NECK: Without lymphadenopathy or thyromegaly. LUNGS: Clear. HEART: Shows regular rate and rhythm. S1, S2. No murmur. ABDOMEN: Soft without focal masses or tenderness. Bowel sounds are present. No organomegaly is noted. EXTREMITIES: Without edema. LABORATORY DATA: Laboratory studies are reviewed. IMPRESSION: Iron deficiency anemia. She does not appear to have any active GI bleeding at this time and has been started on iron supplementation. I would recommend monitoring her hematocrit and transfusing if she does have a significant drop given her underlying comorbid conditions. She shows no signs of GI bleeding at this time. She clearly does not wish to proceed with any endoscopic evaluation and I discussed with her that her history of colon polyps does put her at risk for colon cancer. She understands this. Thank you for asking me to see her. I will follow her in the hospital with you. MD BERNADETTE Anna/AMARI / [phone]
[2022-08-22 03:14] VITALS: BP 101/55; PULSE 80; RESP 17; TEMP 37.6; O2SAT 94
[2022-08-22 05:50] LABS: Hematocrit 23.9 % (37.0-47.0); Hemoglobin 8.1 g/dl (12.0-16.0); Mean Corpuscular HGB Conc 33.9 g/dl (31.0-35.0); Mean Corpuscular Hemoglobin 30.3 pg (27.0-33.0); Mean Corpuscular Volume 89.5 fL (80.0-98.0); Mean Platelet Volume 9.9 fL (9.4-12.3); Platelet Count 386 X10*3/uL (160-400); Red Blood Count 2.67 X10*6/uL (4.20-5.50); Red Cell Distribution Width 16.3 % (11.0-16.0); White Blood Count 18.3 X10*3/uL (4.8-10.8)
[2022-08-22 06:07] LABS: Anion Gap 11 (12-20); Blood Urea Nitrogen 35 mg/dL (9-16); Carbon Dioxide 14 mmol/L (22-29); Chloride 114 mmol/L (96-108); Creatinine Clr Calc Pharmacy 44.5; Estimated Glomerular Filt Rate > 60; Glucose Fasting 96 mg/dL (60-99); Potassium 3.7 mmol/L (3.3-5.1); Sodium 135 mmol/L (135-145)
--- NOTE | 2022-08-22 07:50 | P.CONOP_ITS ---
History of Present Illness HPI Consult date: 08/22/22 Chief complaint: urinary retention, hypokalemia Narrative: 71 yo female states she fell in the middle of July 2022 and she was at a routine doctor appt and her pain became worse and she had difficulty ambulating. She was the staff at the office assisted her to the ED where she had xrays that showed a pubic rami fracture. At that time she was d.c home, but shortly after she returned to the ED due to other medical complications. She is currently admitted to the medical service for hypokalemia and other comorbidities, orthopedics was consulted for recommendations on her pubic rami fracture. Patient also states she has multiple toe fractures. I did review her images from the ED on 08/03 which showed a proximal shaft fx on the fourth and fifth proximal phalanges. Review of Systems Review of Systems: per [facility] Past Medical History Medical History Anxiety Constipation by delayed colonic transit Diarrhea Dry eyes Epidermal inclusion cyst External hemorrhoids GERD (gastroesophageal reflux disease) Hypercalcemia Hyponatremia Insomnia Raynauds disease Renal calculi UTI (urinary tract infection) Villous adenoma of colon White coat syndrome with high blood pressure but without hypertension Family History Family History Father Medical history unknown Mother Dementia Alzheimers disease Mental health disorder Brother Leukemia Sister Medical history unknown Surgical History Surgical History History of bronchoscopy History of tonsillectomy Social History Social History Household Members: None Housing: Other Housing Other:: assisted living. Alcohol intake: never Patient Tobacco Use Status: Former Tobacco user Tobacco use type: Cigarette Smoked in Last 30 Days: No e-Cigarette/Vaping Use: Never Used Second Hand Smoke Exposure: No Use of substances other than those prescribed or required for medical reasons: No Currently Displaying Signs/Symptoms of Drug Intoxication Withdrawal: No Have you been hit, kicked, punched, or otherwise hurt by someone within the past year? If so, by whom?: No Do you feel safe in your current relationship?: No Current Relationship Is there a partner from a previous relationship who is making you feel unsafe now?: No Are you made to feel afraid or neglected: No Advance Directives: No Advance Directives Information Provided: Yes Do you have thoughts of harming others: None Do you have a plan to hurt others: No Plan Recently lost weight without trying: Unsure Nutrition Risks: No Nutritional Risk Patient : No : No Poor oral hygiene: No service: No Current occupational status: retired Cognitive needs: No Hearing needs: No Vision needs: Yes Meds Allergies Allergy/AdvReac Type Severity Reaction Status Date / Time No Known Allergies Allergy Verified 07/21/22 10:50 Active Medications: Current Medications Bisacodyl (Bisacodyl 10 Mg Supp.Rect) 10 mg UT DAILY PRN PRN Reason: severe constipation with no bowel movement >3 days Doxycycline Monohydrate (Doxycycline Monohydrate 100 Mg Capsule) 100 mg PO DAILY [facility] Enoxaparin Sodium (Enoxaparin Sodium 30 Mg/0.3 Ml Syringe) 30 mg SUBCUT Q24H [facility] Last Admin: 08/21/22 09:08 Dose: 30 mg Famotidine (Famotidine 20 Mg Tablet) 20 mg PO DAILY [facility] Ferrous Sulfate (Ferrous Sulfate 324 Mg Tablet.) 324 mg PO DAILY [facility] Last Admin: 08/21/22 10:25 Dose: 324 mg Lorazepam (Lorazepam 1 Mg Tablet) 1 mg PO BID PRN PRN Reason: anxiety Last Admin: 08/21/22 20:22 Dose: 1 mg Metoprolol Succinate (Metoprolol Succinate Er 25 Mg Tab.Er.24h) 25 mg PO DAILY [facility]; Protocol Last Admin: 08/21/22 09:09 Dose: 25 mg Omeprazole (Omeprazole 20 Mg Capsule.) 20 mg PO DAILY [facility] Last Admin: 08/21/22 09:09 Dose: 20 mg Oxycodone HCl (Oxycodone Hcl Immed Release 5 Mg Tablet) 5 mg PO Q4H PRN PRN Reason: moderate pain Last Admin: 08/21/22 10:42 Dose: 5 mg Pharmacy Consult (Consult Rx Perform Med Rec) 1 each MISCELLANE ONCE PRN PRN Reason: Consult order Polyethylene Glycol (Polyethylene Glycol 3350 17 Gm Powd.Pack) 17 gm PO BID PRN PRN Reason: Constipation Quetiapine Fumarate (Quetiapine Fumarate 50 Mg Tablet) 50 mg PO BID [facility] Last Admin: 08/21/22 20:19 Dose: 50 mg Senna (Sennosides 8.6 Mg Tablet) 8.6 mg PO BEDTIME PRN PRN Reason: constipation Last Admin: 08/21/22 10:42 Dose: 8.6 mg Sodium Chloride (0.9 % Sodium Chloride Flush 3 Ml Syringe) 3 ml IVFLUSH QSHIFT DEEPALI Last Admin: 08/22/22 00:20 Dose: 3 ml Temazepam (Temazepam 15 Mg Capsule) 15 mg PO BEDTIME PRN PRN Reason: sleep Last Admin: 08/21/22 20:22 Dose: 15 mg Home Medications Medication Instructions Recorded Confirmed Last Taken Type doxycycline hyclate 50 mg capsule 50 mg PO BID 04/06/22 08/20/22 Unknown History Physical Exam Vital Signs: Vital Signs: Last Vital Signs Temp 99.6 F 08/22/22 03:14 Pulse 80 08/22/22 03:14 Resp 17 08/22/22 03:14 BP 101/55 L 08/22/22 03:14 Pulse Ox 94 08/22/22 03:14 O2 Del Method 08/22/22 03:14 BMI result Body Mass Index 17.2 Const: General: cooperative, healthy appearing and comfortable Extrem: Other: Left hip witout pain on ROM. No pain inthe groin or pelvix with hip flexion. No pain with ROM of the knee. She has mild tenderness over the base of the metatarsals. No open wounds. NVI. Results Labs 08/22/22 05:07 08/22/22 05:07 Labs: Abnormal lab results 08/21/22 08/22/22 08/22/22 Range/Units 06:55 05:07 05:07 WBC 18.3 H (4.8-10.8) X10*3/uL RBC 2.67 L (4.20-5.50) X10*6/uL Hgb 8.1 L (12.0-16.0) g/dl Hct 23.9 L (37.0-47.0) % RDW 16.3 H (11.0-16.0) % Chloride 114 H (96-108) mmol/L Carbon Dioxide 14 L (22-29) mmol/L Anion Gap 11 L (12-20) BUN 35 H (9-16) mg/dL Iron 20 L (30-160) mcg/dL TIBC 143 L (228-428) mcg/dL % Saturation 14 L (15-50) % Ferritin 251 H (10-250) ng/mL H & H 08/20/22 08/21/22 08/22/22 Range/Units 12:15 06:55 05:07 Hgb 9.9 L 8.6 L 8.1 L (12.0-16.0) g/dl Hct 29.6 L 25.5 L 23.9 L (37.0-47.0) % All other labs normal. Diagnostic results Hip x-ray: image reviewed (xrays of the pelvix obtained on 08/21 show superior and inferior left pubic rami fracture-stable ) Assessment and Plan (1) Pubic ramus fracture: Status: Acute Recommend wbat with a walker no urgical intervention she can f/u with ortho in 4 week for repeat xrays (2) Toe fracture: Status: Acute wbat boot or post op shoe as needed for pain no surgical intervention f/u with ortho prn Time Spent With Patient Time: Total time managing care of this patient today ____ minutes. Procedures Date of Service Date of Service: 08/22/22
[2022-08-22] MEDS: Omeprazole 20 MG CAPSULE.DR PO (07:57)
[2022-08-22] MEDS: QUEtiapine Fumarate 50 MG TABLET PO ×2 (07:57→20:08)
[2022-08-22] MEDS: Ferrous Sulfate 324 MG TABLET.DR PO (07:57)
[2022-08-22] MEDS: Doxycycline Monohydrate 100 MG CAPSULE PO (07:57)
[2022-08-22] MEDS: Famotidine 20 MG TABLET PO (07:58)
[2022-08-22] MEDS: Metoprolol Succinate ER 25 MG TAB.ER.24H PO (07:58)
[2022-08-22] MEDS: Enoxaparin Sodium 30 MG/0.3 ML SYRINGE SUBCUT (07:58)
[2022-08-22 08:00] VITALS: BP 97/51; PULSE 80; RESP 18; TEMP 36.6; O2SAT 96
--- NOTE | 2022-08-22 09:18 | P.CONNP_ITS ---
History of Present Illness Reason for Consult Consult date: 08/22/22 Chief Complaint Chief complaint: urinary retention, hypokalemia History of Present Illness Narrative: 71F with multiple medical issues presented with complaints of urinary incontinence.? Patient was seen in the ER 08/03/2022 after mechanical fall found to have pelvic fracture. patient was not interested in placement at that time and was sent home with PT.? Patient states she has been able to ambulate with walker, however, has noted abdominal bloating in the last couple days and urinary incontinence.? In ED noted to have hypokalemia of 2.8, urinary retention with residual of 1400 cc. She was admitted for further management . Nephrology has been consulted to assist in her management of Hypokalemia and metabolic acidosis Review of Systems Review of Systems Yes all other systems are reviewed and are negative [facility] Past Medical History Medical History Anxiety Constipation by delayed colonic transit Diarrhea Dry eyes Epidermal inclusion cyst External hemorrhoids GERD (gastroesophageal reflux disease) Hypercalcemia Hyponatremia Insomnia Raynauds disease Renal calculi UTI (urinary tract infection) Villous adenoma of colon White coat syndrome with high blood pressure but without hypertension Family History Family History Father Medical history unknown Mother Dementia Alzheimers disease Mental health disorder Brother Leukemia Sister Medical history unknown Surgical History Surgical History History of bronchoscopy History of tonsillectomy Social History Social History Household Members: None Housing: Other Housing Other:: assisted living. Alcohol intake: never Patient Tobacco Use Status: Former Tobacco user Tobacco use type: Cigarette Smoked in Last 30 Days: No e-Cigarette/Vaping Use: Never Used Second Hand Smoke Exposure: No Use of substances other than those prescribed or required for medical reasons: No Currently Displaying Signs/Symptoms of Drug Intoxication Withdrawal: No Have you been hit, kicked, punched, or otherwise hurt by someone within the past year? If so, by whom?: No Do you feel safe in your current relationship?: No Current Relationship Is there a partner from a previous relationship who is making you feel unsafe now?: No Are you made to feel afraid or neglected: No Advance Directives: No Advance Directives Information Provided: Yes Do you have thoughts of harming others: None Do you have a plan to hurt others: No Plan Recently lost weight without trying: Unsure Nutrition Risks: No Nutritional Risk Patient : No : No Poor oral hygiene: No service: No Current occupational status: retired Cognitive needs: No Hearing needs: No Vision needs: Yes Meds Allergies Allergy/AdvReac Type Severity Reaction Status Date / Time No Known Allergies Allergy Verified 07/21/22 10:50 Active Medications: Current Medications Bisacodyl (Bisacodyl 10 Mg Supp.Rect) 10 mg [place] DAILY PRN PRN Reason: severe constipation with no bowel movement >3 days Doxycycline Monohydrate (Doxycycline Monohydrate 100 Mg Capsule) 100 mg PO DAILY REPLACED BY [facility] Last Admin: 08/22/22 07:57 Dose: 100 mg Enoxaparin Sodium (Enoxaparin Sodium 30 Mg/0.3 Ml Syringe) 30 mg SUBCUT Q24H REPLACED BY [facility] Last Admin: 08/22/22 07:58 Dose: 30 mg Famotidine (Famotidine 20 Mg Tablet) 20 mg PO DAILY REPLACED BY [facility] Last Admin: 08/22/22 07:58 Dose: 20 mg Ferrous Sulfate (Ferrous Sulfate 324 Mg Tablet.) 324 mg PO DAILY REPLACED BY [facility] Last Admin: 08/22/22 07:57 Dose: 324 mg Lorazepam (Lorazepam 1 Mg Tablet) 1 mg PO BID PRN PRN Reason: anxiety Last Admin: 08/21/22 20:22 Dose: 1 mg Metoprolol Succinate (Metoprolol Succinate Er 25 Mg Tab.Er.24h) 25 mg PO DAILY REPLACED BY [facility]; Protocol Last Admin: 08/22/22 07:58 Dose: 25 mg Omeprazole (Omeprazole 20 Mg Capsule.) 20 mg PO DAILY REPLACED BY [facility] Last Admin: 08/22/22 07:57 Dose: 20 mg Oxycodone HCl (Oxycodone Hcl Immed Release 5 Mg Tablet) 5 mg PO Q4H PRN PRN Reason: moderate pain Last Admin: 08/21/22 10:42 Dose: 5 mg Pharmacy Consult (Consult Rx Perform Med Rec) 1 each MISCELLANE ONCE PRN PRN Reason: Consult order Polyethylene Glycol (Polyethylene Glycol 3350 17 Gm Powd.Pack) 17 gm PO BID PRN PRN Reason: Constipation Last Admin: 08/22/22 07:58 Dose: 17 gm Potassium Bicarbonate (Potassium Bicarbonate/Cit Ac 25 Meq Tablet.Eff) 25 meq PO DAILY REPLACED BY [facility] Quetiapine Fumarate (Quetiapine Fumarate 50 Mg Tablet) 50 mg PO BID REPLACED BY [facility] Last Admin: 08/22/22 07:57 Dose: 50 mg Senna (Sennosides 8.6 Mg Tablet) 8.6 mg PO BEDTIME PRN PRN Reason: constipation Last Admin: 08/21/22 10:42 Dose: 8.6 mg Sodium Chloride (0.9 % Sodium Chloride Flush 3 Ml Syringe) 3 ml IVFLUSH QSHIFT REPLACED BY [facility] Last Admin: 08/22/22 07:58 Dose: 3 ml Temazepam (Temazepam 15 Mg Capsule) 15 mg PO BEDTIME PRN PRN Reason: sleep Last Admin: 08/21/22 20:22 Dose: 15 mg Home Medications Medication Instructions Recorded Confirmed Last Taken Type doxycycline hyclate 50 mg capsule 50 mg PO BID 04/06/22 08/20/22 Unknown History Physical Exam Vital Signs: Last Vital Signs Temp 97.9 F 08/22/22 08:00 Pulse 80 08/22/22 08:00 Resp 18 08/22/22 08:00 BP 97/51 L 08/22/22 08:00 Pulse Ox 96 08/22/22 08:00 O2 Del Method 08/22/22 08:00 BMI result Body Mass Index 17.2 Const General: no acute distress Orientation/consciousness: patient oriented x3 Eyes EOM: EOMs intact bilaterally Resp Auscultation: diminished lung sounds Cardio Rate: regular rate GI Palpation (GI): Soft to palpation Neuro General: patient oriented x3 Results Lab Results 08/22/22 05:07 08/22/22 05:07 Lab results: Chemistry 08/20/22 08/21/22 08/22/22 12:15 06:55 05:07 Sodium 140 138 135 Potassium 2.8 L 3.3 3.7 Carbon Dioxide 17 L 18 L 14 L BUN 50 H 38 H 35 H Creatinine 1.21 1.01 0.71 Calcium 10.4 H D 9.5 D 9.0 Hematology 08/20/22 08/21/22 08/22/22 12:15 06:55 05:07 WBC 16.2 H 16.1 H 18.3 H Hgb 9.9 L 8.6 L 8.1 L Plt Count 436 H D 389 386 Urinalysis 08/20/22 14:24 Urine Color Yellow Urine Appearance Clear Urine pH 6.0 Ur Specific Fisher 1.015 Urine Protein 30 (1+) H Urine Glucose (UA) Negative Urine Ketones Negative Urine Blood Negative Urine Nitrite Negative Ur Leukocyte Esterase Negative Urine RBC 0-2 Urine WBC 0-5 Ur Squamous Epith Cells 0-2 Hyaline Casts 0-2 Urine Studies 08/20/22 14:24 Urine Creatinine 52.66 Assessment and Plan (1) Acute hypokalemia: Status: Acute Plan 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
--- NOTE | 2022-08-22 09:46 | HO.PM.IMPN ---
Subjective Subjective Date of Service: 08/22/22 Interval History: cc: urinary incontinence interval history: pelvic pain with ambulation Physical Exam Vital Signs: Vital Signs: Last Vital Signs Temp 97.9 F 08/22/22 08:00 Pulse 80 08/22/22 08:00 Resp 18 08/22/22 08:00 BP 97/51 L 08/22/22 08:00 Pulse Ox 96 08/22/22 08:00 O2 Del Method 08/22/22 08:00 BMI result Body Mass Index 17.2 Const: General: no acute distress Orientation/consciousness: patient oriented x3 Eyes: EOM: EOMs intact bilaterally Resp: Auscultation: diminished lung sounds Cardio: Rate: regular rate GI: Palpation (GI): Soft to palpation Neuro: General: patient oriented x3 Objective Data Active Medications Bisacodyl (Bisacodyl 10 Mg Supp.Rect) 10 mg [place] DAILY PRN PRN Reason: severe constipation with no bowel movement >3 days Doxycycline Monohydrate (Doxycycline Monohydrate 100 Mg Capsule) 100 mg PO DAILY [facility] Last Admin: 08/22/22 07:57 Dose: 100 mg Documented By: ELMER Enoxaparin Sodium (Enoxaparin Sodium 30 Mg/0.3 Ml Syringe) 30 mg SUBCUT Q24H [facility] Last Admin: 08/22/22 07:58 Dose: 30 mg Documented By: ELMER Famotidine (Famotidine 20 Mg Tablet) 20 mg PO DAILY [facility] Last Admin: 08/22/22 07:58 Dose: 20 mg Documented By: ELMER Ferrous Sulfate (Ferrous Sulfate 324 Mg Tablet.) 324 mg PO DAILY [facility] Last Admin: 08/22/22 07:57 Dose: 324 mg Documented By: ELMER Lorazepam (Lorazepam 1 Mg Tablet) 1 mg PO BID PRN PRN Reason: anxiety Last Admin: 08/21/22 20:22 Dose: 1 mg Documented By: JAIDA Metoprolol Succinate (Metoprolol Succinate Er 25 Mg Tab.Er.24h) 25 mg PO DAILY [facility]; Protocol Last Admin: 08/22/22 07:58 Dose: 25 mg Documented By: ELMER Omeprazole (Omeprazole 20 Mg Capsule.) 20 mg PO DAILY [facility] Last Admin: 08/22/22 07:57 Dose: 20 mg Documented By: ELMER Oxycodone HCl (Oxycodone Hcl Immed Release 5 Mg Tablet) 5 mg PO Q4H PRN PRN Reason: moderate pain Last Admin: 08/21/22 10:42 Dose: 5 mg Documented By: MAYELA Pharmacy Consult (Consult Rx Perform Med Rec) 1 each MISCELLANE ONCE PRN PRN Reason: Consult order Polyethylene Glycol (Polyethylene Glycol 3350 17 Gm Powd.Pack) 17 gm PO BID PRN PRN Reason: Constipation Last Admin: 08/22/22 07:58 Dose: 17 gm Documented By: ELMER Potassium Bicarbonate (Potassium Bicarbonate/Cit Ac 25 Meq Tablet.Eff) 25 meq PO DAILY [facility] Quetiapine Fumarate (Quetiapine Fumarate 50 Mg Tablet) 50 mg PO BID [facility] Last Admin: 08/22/22 07:57 Dose: 50 mg Documented By: ELMER Senna (Sennosides 8.6 Mg Tablet) 8.6 mg PO BEDTIME PRN PRN Reason: constipation Last Admin: 08/21/22 10:42 Dose: 8.6 mg Documented By: MAYELA Sodium Chloride (0.9 % Sodium Chloride Flush 3 Ml Syringe) 3 ml IVFLUSH QSHIFT [facility] Last Admin: 08/22/22 07:58 Dose: 3 ml Documented By: ELMER Temazepam (Temazepam 15 Mg Capsule) 15 mg PO BEDTIME PRN PRN Reason: sleep Last Admin: 08/21/22 20:22 Dose: 15 mg Documented By: HENRIQUEIT Labs 08/22/22 05:07 08/22/22 05:07 Labs: Laboratory Results - last 24 hr 08/20/22 08/22/22 08/22/22 14:24 05:07 05:07 MCV 89.5 MCH 30.3 MCHC 33.9 RDW 16.3 H Plt Count 386 MPV 9.9 Absolute Nucleated RBC 0.000 Nucleated RBC % (auto) 0.0 Anion Gap 11 L Estim Creat Clear Calc 44.5 Estimated GFR > 60 Fasting Glucose 96 Calcium 9.0 Ur Random Chloride < 20.1 Assessment and Plan (1) Acute hypokalemia: Status: Acute Plan 71F PMH? 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 temazepam ?mood disorder ?Seroquel ?DVT prophylaxis with Lovenox ?full code reason for continued hospitalization:safe dispo Time Spent With Patient Time: Total time managing care of this patient today ____ minutes. Quality Stroke Does the patient have a stroke diagnosis?: No VTE Prior VTE?: No VTE Risk Level:: Medical - moderate - high VTE Device Contraindication: Treatment Not Indicated VTE Drug Contraindication: N/A - Med Ordered
[2022-08-22] MEDS: Potassium Bicarbonate/Cit AC 25 MEQ TABLET.EFF PO (10:40)
[2022-08-22 11:02] LABS: Rheumatoid Factor < 13.0 IU/mL (<15.0)
[2022-08-22 15:23] VITALS: BP 107/53; PULSE 85; RESP 18; TEMP 37.1; O2SAT 93
[2022-08-22] MEDS: LORazepam 1 MG TABLET PO ×2 (15:45→20:07)
[2022-08-22 16:49] VITALS: BP 107/53; PULSE 85; O2SAT 82
[2022-08-22 20:00] VITALS: BP 105/55; PULSE 85; RESP 14; TEMP 36.6; O2SAT 97
[2022-08-22] MEDS: Temazepam 15 MG CAPSULE PO (20:07)
[2022-08-23 06:38] LABS: Hemoglobin 7.8 g/dl (12.0-16.0); Mean Corpuscular HGB Conc 32.5 g/dl (31.0-35.0); Mean Corpuscular Hemoglobin 29.8 pg (27.0-33.0); Mean Corpuscular Volume 91.6 fL (80.0-98.0); Mean Platelet Volume 10.3 fL (9.4-12.3); Platelet Count 373 X10*3/uL (160-400); Red Blood Count 2.62 X10*6/uL (4.20-5.50); Red Cell Distribution Width 16.5 % (11.0-16.0); White Blood Count 15.1 X10*3/uL (4.8-10.8)
[2022-08-23 07:15] LABS: Anion Gap 11 (12-20); Blood Urea Nitrogen 34 mg/dL (9-16); Carbon Dioxide 14 mmol/L (22-29); Chloride 112 mmol/L (96-108); Creatinine Clr Calc Pharmacy 41.5; Estimated Glomerular Filt Rate > 60; Glucose Fasting 90 mg/dL (60-99); Potassium 3.9 mmol/L (3.3-5.1); Sodium 133 mmol/L (135-145)
[2022-08-23 08:00] VITALS: BP 98/53; PULSE 98; RESP 18; TEMP 36.8; O2SAT 98
[2022-08-23] MEDS: Doxycycline Monohydrate 100 MG CAPSULE PO (08:06)
[2022-08-23] MEDS: Famotidine 20 MG TABLET PO (08:06)
[2022-08-23] MEDS: QUEtiapine Fumarate 50 MG TABLET PO ×2 (08:06→20:03)
[2022-08-23] MEDS: Omeprazole 20 MG CAPSULE.DR PO (08:06)
[2022-08-23] MEDS: Metoprolol Succinate ER 25 MG TAB.ER.24H PO (08:06)
[2022-08-23] MEDS: Enoxaparin Sodium 30 MG/0.3 ML SYRINGE SUBCUT (08:06)
[2022-08-23] MEDS: Ferrous Sulfate 324 MG TABLET.DR PO (08:06)
[2022-08-23] MEDS: 0.9 % Sodium Chloride Flush 3 ML SYRINGE IVFLUSH ×3 (08:07→20:03)
[2022-08-23] MEDS: Potassium Bicarbonate/Cit AC 25 MEQ TABLET.EFF PO (08:14)
--- NOTE | 2022-08-23 08:21 | PM.PNNEP ---
Subjective Subjective Date of Service: 08/23/22 Interval history: Seen AM. All recent data reviewed Physical Exam Vital Signs: Vital Signs: Last Vital Signs Temp 98.2 F 08/23/22 08:00 Pulse 98 08/23/22 08:00 Resp 18 08/23/22 08:00 BP 98/53 L 08/23/22 08:00 Pulse Ox 98 08/23/22 08:00 O2 Del Method 08/23/22 08:00 O2 Flow Rate 1 08/23/22 08:00 BMI result Body Mass Index 17.2 Const: General: no acute distress Orientation/consciousness: patient oriented x3 Neck: Neck: Yes supple Resp: Auscultation: diminished lung sounds Cardio: Rate: regular rate GI: Palpation (GI): Soft to palpation Neuro: General: patient oriented x3 Objective Data Labs 08/23/22 05:14 08/23/22 05:14 Labs: Laboratory Results - last 24 hr 08/21/22 08/23/22 08/23/22 06:55 05:14 05:14 WBC 15.1 H RBC 2.62 L Hgb 7.8 L Hct 24.0 L MCV 91.6 MCH 29.8 MCHC 32.5 RDW 16.5 H Plt Count 373 MPV 10.3 Absolute Nucleated RBC 0.000 Nucleated RBC % (auto) 0.0 Sodium 133 L Potassium 3.9 Chloride 112 H Carbon Dioxide 14 L Anion Gap 11 L BUN 34 H Creatinine 0.76 Estim Creat Clear Calc 41.5 Estimated GFR > 60 Fasting Glucose 90 Calcium 9.0 Rheumatoid Factor < 13.0 Procedures Date of Service Date of Service: 08/23/22 Assessment & Plan Assessment and plan (1) Acute hypokalemia: Status: Acute Assessment and Plan: 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 Progress Note: Quality Stroke Does the patient have a stroke diagnosis?: No
--- NOTE | 2022-08-23 09:50 | P.PNIM_ITS ---
Subjective Subjective Date of Service: 08/23/22 Interval History: cc: urinary incontinence interval history: pelvic pain with ambulation Physical Exam Vital Signs: Vital Signs: Last Vital Signs Temp 98.2 F 08/23/22 08:00 Pulse 98 08/23/22 08:00 Resp 18 08/23/22 08:00 BP 98/53 L 08/23/22 08:00 Pulse Ox 98 08/23/22 08:00 O2 Del Method 08/23/22 08:00 O2 Flow Rate 1 08/23/22 08:00 BMI result Body Mass Index 17.2 Const: General: no acute distress Orientation/consciousness: patient oriented x3 Neck: Neck: Yes supple Resp: Auscultation: diminished lung sounds Cardio: Rate: regular rate GI: Palpation (GI): Soft to palpation Neuro: General: patient oriented x3 Objective Data Active Medications Bisacodyl (Bisacodyl 10 Mg Supp.Rect) 10 mg [place] DAILY PRN PRN Reason: severe constipation with no bowel movement >3 days Doxycycline Monohydrate (Doxycycline Monohydrate 100 Mg Capsule) 100 mg PO DAILY [facility] Last Admin: 08/23/22 08:06 Dose: 100 mg Documented By: ELMER Enoxaparin Sodium (Enoxaparin Sodium 30 Mg/0.3 Ml Syringe) 30 mg SUBCUT Q24H [facility] Last Admin: 08/23/22 08:06 Dose: 30 mg Documented By: ELMER Famotidine (Famotidine 20 Mg Tablet) 20 mg PO DAILY [facility] Last Admin: 08/23/22 08:06 Dose: 20 mg Documented By: ELMER Ferrous Sulfate (Ferrous Sulfate 324 Mg Tablet.) 324 mg PO DAILY [facility] Last Admin: 08/23/22 08:06 Dose: 324 mg Documented By: ELMER Lorazepam (Lorazepam 1 Mg Tablet) 1 mg PO BID PRN PRN Reason: anxiety Last Admin: 08/22/22 20:07 Dose: 1 mg Documented By: LORRAINE Metoprolol Succinate (Metoprolol Succinate Er 25 Mg Tab.Er.24h) 25 mg PO DAILY [facility]; Protocol Last Admin: 08/23/22 08:06 Dose: 25 mg Documented By: ELMER Omeprazole (Omeprazole 20 Mg Capsule.) 20 mg PO DAILY [facility] Last Admin: 08/23/22 08:06 Dose: 20 mg Documented By: ELMER Oxycodone HCl (Oxycodone Hcl Immed Release 5 Mg Tablet) 5 mg PO Q4H PRN PRN Reason: moderate pain Last Admin: 08/21/22 10:42 Dose: 5 mg Documented By: MAYELA Pharmacy Consult (Consult Rx Perform Med Rec) 1 each MISCELLANE ONCE PRN PRN Reason: Consult order Polyethylene Glycol (Polyethylene Glycol 3350 17 Gm Powd.Pack) 17 gm PO BID PRN PRN Reason: Constipation Potassium Bicarbonate (Potassium Bicarbonate/Cit Ac 25 Meq Tablet.Eff) 25 meq PO DAILY [facility] Last Admin: 08/23/22 08:14 Dose: 25 meq Documented By: ELMER Quetiapine Fumarate (Quetiapine Fumarate 50 Mg Tablet) 50 mg PO BID [facility] Last Admin: 08/23/22 08:06 Dose: 50 mg Documented By: ELMER Senna (Sennosides 8.6 Mg Tablet) 8.6 mg PO BEDTIME PRN PRN Reason: constipation Last Admin: 08/21/22 10:42 Dose: 8.6 mg Documented By: MAYELA Sodium Chloride (0.9 % Sodium Chloride Flush 3 Ml Syringe) 3 ml IVFLUSH QSHIFT [facility] Last Admin: 08/23/22 08:07 Dose: 3 ml Documented By: ELMER Temazepam (Temazepam 15 Mg Capsule) 15 mg PO BEDTIME PRN PRN Reason: sleep Last Admin: 08/22/22 20:07 Dose: 15 mg Documented By: LORRAINE Labs 08/23/22 05:14 08/23/22 05:14 Labs: Laboratory Results - last 24 hr 08/21/22 08/23/22 08/23/22 06:55 05:14 05:14 MCV 91.6 MCH 29.8 MCHC 32.5 RDW 16.5 H Plt Count 373 MPV 10.3 Absolute Nucleated RBC 0.000 Nucleated RBC % (auto) 0.0 Anion Gap 11 L Estim Creat Clear Calc 41.5 Estimated GFR > 60 Fasting Glucose 90 Calcium 9.0 Rheumatoid Factor < 13.0 Assessment and Plan (1) Acute hypokalemia: Status: Acute Plan 71F PMH? 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 temazepam ?mood disorder ?Seroquel ?DVT prophylaxis with Lovenox ?full code reason for continued hospitalization: downtredning hgb, acidosis Time Spent With Patient Time: Total time managing care of this patient today ____ minutes. Quality Stroke Does the patient have a stroke diagnosis?: No VTE Prior VTE?: No VTE Risk Level:: Medical - moderate - high VTE Device Contraindication: Treatment Not Indicated VTE Drug Contraindication: N/A - Med Ordered
[2022-08-23] MEDS: Sodium Bicarbonate 650 MG TABLET PO ×3 (10:37→20:03)
--- NOTE | 2022-08-23 13:56 | PC.NURSE ---
Patient complained that she has been having pain while on this floor and no one has been giving her pain medication. She asked who the charge nurse is for tomorrow Wednesday, and said her daughter in-law is mad about this and is coming here tomorrow, that she is going to blow it up. She hasn't mentioned about having any pain all times I have been asking her during assessments, and while in the room. Three CNAs that have been taking care of her said that she has never told or asked any of them about getting any pain meds. The patient said she did not have any pain at the moment when I saw her, and that she only gets pain when she moves.
[2022-08-23 16:00] VITALS: BP 118/58; PULSE 88; RESP 16; TEMP 37.8; O2SAT 97
--- NOTE | 2022-08-23 17:06 | PC.NURSE ---
I asked the patient if she has pain at 3pm today and offered oxycodone but the patient denied having any pain. I offered her oxycodone incase of any pain but she refused saying she is not in pain. 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
[2022-08-23] MEDS: oxyCODONE HCl Immed Release 5 MG TABLET PO (17:24)
--- NOTE | 2022-08-23 17:31 | PC.NURSE ---
I just medicated the patient with oxycodone, she said she will be repositioned in the next few minutes and might feel pain when repositioning. Nurse kitchen supervisor is aware of her pain management.
[2022-08-23 19:29] VITALS: BP 97/55; PULSE 92; RESP 16; TEMP 37.5; O2SAT 96
[2022-08-23] MEDS: Temazepam 15 MG CAPSULE PO (20:03)
[2022-08-23] MEDS: LORazepam 1 MG TABLET PO (20:03)
[2022-08-24 03:41] VITALS: BP 92/47; PULSE 85; RESP 16; TEMP 37.4; O2SAT 95
[2022-08-24 05:55] LABS: Hematocrit 22.6 % (37.0-47.0); Hemoglobin 7.6 g/dl (12.0-16.0); Mean Corpuscular HGB Conc 33.6 g/dl (31.0-35.0); Mean Corpuscular Hemoglobin 30.2 pg (27.0-33.0); Mean Corpuscular Volume 89.7 fL (80.0-98.0); Mean Platelet Volume 9.9 fL (9.4-12.3); Platelet Count 386 X10*3/uL (160-400); Red Blood Count 2.52 X10*6/uL (4.20-5.50); Red Cell Distribution Width 16.2 % (11.0-16.0); White Blood Count 11.2 X10*3/uL (4.8-10.8)
[2022-08-24 06:22] LABS: Anion Gap 10 (12-20); Blood Urea Nitrogen 32 mg/dL (9-16); Calcium 9.1 mg/dL (8.4-10.2); Carbon Dioxide 18 mmol/L (22-29); Chloride 109 mmol/L (96-108); Creatinine Clr Calc Pharmacy 38.4; Estimated Glomerular Filt Rate > 60; Glucose Fasting 86 mg/dL (60-99); Potassium 3.9 mmol/L (3.3-5.1); Sodium 133 mmol/L (135-145)
[2022-08-24 08:00] VITALS: BP 98/53; PULSE 82; RESP 18; TEMP 36.4; O2SAT 99
[2022-08-24] MEDS: Enoxaparin Sodium 30 MG/0.3 ML SYRINGE SUBCUT (08:11)
[2022-08-24] MEDS: Potassium Bicarbonate/Cit AC 25 MEQ TABLET.EFF PO (08:12)
[2022-08-24] MEDS: Ferrous Sulfate 324 MG TABLET.DR PO (08:12)
[2022-08-24] MEDS: QUEtiapine Fumarate 50 MG TABLET PO (08:12)
[2022-08-24] MEDS: oxyCODONE HCl Immed Release 5 MG TABLET PO ×3 (08:13→16:14)
[2022-08-24] MEDS: Omeprazole 20 MG CAPSULE.DR PO (08:13)
[2022-08-24] MEDS: LORazepam 1 MG TABLET PO (08:14)
[2022-08-24] MEDS: Metoprolol Succinate ER 25 MG TAB.ER.24H PO (08:14)
[2022-08-24] MEDS: Famotidine 20 MG TABLET PO (08:14)
[2022-08-24] MEDS: Doxycycline Monohydrate 100 MG CAPSULE PO (08:14)
[2022-08-24] MEDS: 0.9 % Sodium Chloride Flush 3 ML SYRINGE IVFLUSH (08:14)
[2022-08-24] MEDS: Sodium Bicarbonate 650 MG TABLET PO ×2 (08:14→15:07)
--- NOTE | 2022-08-24 10:27 | P.CDIM_ITS ---
PROVIDER RESPONSE TEXT: To clarify, the appropriate diagnosis supported by the clinical indicators: Other (explain): subacute QUERY TEXT: PHYSICIAN'S DOCUMENTATION REQUEST Date of Query: 08/24/2022 09:30 AM EDT Patient Name: Lisa Edward Admit Date: 08/20/2022 Dear Amos Spicer, Clinical Indicators: PN: 08/23 - Assessment/plan: Metabolic acidosis, Nephro appreciated, c/w RTA type I, started Kcitrate, check for autoimmune disorders. Clarify which of the following accurately represents the acuity of the Metabolic acidosis: Acute Chronic Other Unable to determine Other (explain) Clinically unable to determine (explain) Thank you, Tamra Zamudio, CCS, CDIS Use of terms such as suspected, likely, concern for, or probable (associated with a specific diagnosi s that is being evaluated, monitored, or treated as if it exists) are acceptable and can be coded in the inpatient se tting, when documented at the time of discharge. Please use your independent medical judgment in providing your response. THIS QUERY IS PART OF THE PERMANENT MEDICAL RECORD
[2022-08-24] MEDS: polyethylene glycoL 3350 17 GM POWD.PACK PO (10:29)
--- NOTE | 2022-08-24 10:46 | MHC.CM.PN ---
Addendum entered by Yesenia Gerard 08/24/22 11:59: All discharge information has been sent to the facility. Patient will transport 5:30pm to [facility]. Original Note: Female 71 DX Hypokalemia UTI PT rec STR. Referrals were sent. [facility] has offered a private room today. The patient accepts the bed. A covid test has been ordered for transfer. Transportation via BLS scheduled for 5:30pm today.
--- NOTE | 2022-08-24 10:55 | PM.PNNEP ---
Subjective Subjective Date of Service: 08/24/22 Interval history: cc: urinary incontinence interval history: pelvic pain with ambulation Physical Exam Vital Signs: Vital Signs: Last Vital Signs Temp 97.5 F 08/24/22 08:00 Pulse 82 08/24/22 08:00 Resp 18 08/24/22 08:00 BP 98/53 L 08/24/22 08:00 Pulse Ox 99 08/24/22 08:00 O2 Del Method 08/24/22 08:00 O2 Flow Rate 3.2 08/24/22 08:00 BMI result Body Mass Index 17.2 Const: General: no acute distress Orientation/consciousness: patient oriented x3 Eyes: EOM: EOMs intact bilaterally Neck: Neck: Yes supple Resp: Auscultation: diminished lung sounds Cardio: Rate: regular rate GI: Palpation (GI): Soft to palpation Neuro: General: patient oriented x3 Objective Data Labs 08/24/22 05:02 08/24/22 05:02 Labs: Laboratory Results - last 24 hr 08/24/22 08/24/22 05:02 05:02 WBC 11.2 H RBC 2.52 L Hgb 7.6 L Hct 22.6 L MCV 89.7 MCH 30.2 MCHC 33.6 RDW 16.2 H Plt Count 386 MPV 9.9 Absolute Nucleated RBC 0.000 Nucleated RBC % (auto) 0.0 Sodium 133 L Potassium 3.9 Chloride 109 H Carbon Dioxide 18 L Anion Gap 10 L BUN 32 H Creatinine 0.82 Estim Creat Clear Calc 38.4 Estimated GFR > 60 Fasting Glucose 86 Calcium 9.1 Procedures Date of Service Date of Service: 08/24/22 Assessment & Plan Assessment and plan (1) Acute hypokalemia: Status: Acute Assessment and Plan: 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 Progress Note: Quality Stroke Does the patient have a stroke diagnosis?: No
--- NOTE | 2022-08-24 10:57 | PM.DS ---
DS: Providers Provider Date of Service: 08/24/22 Date of admission: 08/20/22 16:16 Primary care physician: Aniyah Mcgregor MD Consults: 08/21/22 09:38 Consult to Orthopedics Routine Consulting Provider: [facility] Reason for consultation: Comminuted and displaced pelvic fracture 08/03/22, with ongoing pain 08/21/22 09:52 Consult to Gastroenterology Routine Consulting Provider: Ramesh Shaffer Reason for consultation: mixed iron/inflammatory anemia, ?occult bleeding 08/22/22 07:03 Consult to Nephrology Routine Consulting Provider: Homar Beth Reason for consultation: ?RTA DS: Diagnosis Discharge Diagnosis (1) Acute hypokalemia: Status: Acute DS: Summary Hospital Course Hospital Course: from initial hpi: Chief Complaint: ? Urinary incontinence 71F PMH? 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 Patient was seen in the ER 08/03/2022 after mechanical fall found to have pelvic fracture, patient was not interested in placement at that time and was sent home with PT.? Patient states she has been able to ambulate with walker, however, has noted abdominal bloating in the last couple days and urinary incontinence.? In ED noted to have hypokalemia of 2.8, urinary retention with residual of 1400 cc. hospital course: Patient presented with urinary retention she had Lou placed as she was in too much pain for intermittent catheterization. Patient should have trial of voiding once more ambulatory. Her hypokalemia was replaced. Patient noted to have subacute metabolic acidosis. Was seen by Nephrology who felt this was consistent with RTA type 1. Recommended potassium citrate, autoimmune workup is pending. With history of Raynaud's, dry eyes there is concern for Sjogren's syndrome, though patient previously tested negative for anti Ro and anti La. patient also noted to have acute inflammatory and iron deficiency anemia. She was started on p.o. iron. She was seen by GI and was not interested in endoscopic workup. 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 For moderate protein calorie malnutrition increased p.o. intake was encouraged. For GERD she was continued on PPI. For insomnia she was continue on temazepam. For mood disorder she was continued on Seroquel. Patient is feeling better and will be discharged to skilled nurse facility for short-term rehab. she is expected to require less than 30 days at snf. Time Spent with Patient Time attestation: Total time managing care of this patient today ____ minutes. Discharge coordination time: Greater than 30 minutes Quality: Safe Use of Opioids Does Pt have an Active Cancer Diagnosis on the Problem List?: No Quality: Stroke Does the patient have a stroke diagnosis?: No Physical Exam Vital Signs: Vital Signs: Last Vital Signs Temp 97.5 F 08/24/22 08:00 Pulse 82 08/24/22 08:00 Resp 18 08/24/22 08:00 BP 98/53 L 08/24/22 08:00 Pulse Ox 99 08/24/22 08:00 O2 Del Method 08/24/22 08:00 O2 Flow Rate 3.2 08/24/22 08:00 BMI result Body Mass Index 17.2 Const: General: no acute distress Orientation/consciousness: patient oriented x3 Eyes: EOM: EOMs intact bilaterally Neck: Neck: Yes supple Resp: Auscultation: diminished lung sounds Cardio: Rate: regular rate GI: Palpation (GI): Soft to palpation Neuro: General: patient oriented x3 DS: Data Data Completed and Pending Labs on day of discharge: Laboratory Results - last 24 hr 08/24/22 08/24/22 05:02 05:02 WBC 11.2 H RBC 2.52 L Hgb 7.6 L Hct 22.6 L MCV 89.7 MCH 30.2 MCHC 33.6 RDW 16.2 H Plt Count 386 MPV 9.9 Absolute Nucleated RBC 0.000 Nucleated RBC % (auto) 0.0 Sodium 133 L Potassium 3.9 Chloride 109 H Carbon Dioxide 18 L Anion Gap 10 L BUN 32 H Creatinine 0.82 Estim Creat Clear Calc 38.4 Estimated GFR > 60 Fasting Glucose 86 Calcium 9.1 Discharge Plan Discharge Anticipated Discharge Date/Time: 08/24/22 10:45 Patient Disposition: Xfer SNF Discharge Diagnosis: weakness Referrals: [facility] [Outside] - 1 Week Homar Beth MD [Physician] - 1 Week Bigg Leos MD [Physician] - 1 Week Aniyah Smith MD [Primary Care Provider] - 1 Week Discharge Medications: New ferrous sulfate 324 mg (65 mg iron) Tablet,Delayed Release (Dr/Ec) 324 mg PO DAILY Qty: 0 0RF Klor-Con/EF 25 mEq Tablet, Effervescent 25 meq PO BID Qty: 0 0RF oxycodone 5 mg Tablet 5 mg PO Q4H PRN (Reason: moderate pain) Qty: 15 0RF Rx Instructions: Partial Fill upon patient request. Continued bisacodyl 10 mg suppository 10 mg NH DAILY PRN (Reason: severe constipation with no bowel movement >3 days) 3 Days Qty: 3 0RF sennosides [senna] 8.6 mg tablet 8.6 mg PO BEDTIME PRN (Reason: constipation) 30 Days Qty: 30 0RF metoprolol succinate 25 mg tablet extended release 24 hr 25 mg PO DAILY Qty: 30 5RF quetiapine 50 mg tablet 50 mg PO BID 30 Days Qty: 60 5RF lorazepam 1 mg tablet 1 mg PO BID PRN (Reason: anxiety) 30 Days Qty: 15 5RF famotidine 20 mg tablet 20 mg PO BID 90 Days Qty: 180 2RF pantoprazole 40 mg tablet,delayed release (DR/EC) 40 mg PO DAILY Qty: 30 5RF temazepam 15 mg capsule 15 mg PO BEDTIME PRN (Reason: sleep) 30 Days Qty: 30 5RF doxycycline hyclate 50 mg capsule 50 mg PO BID No Action (DME) foot inserts See Rx Instructions .Route .MEDSUPPLY Qty: 1 0RF Rx Instructions: As directed Discharge Orders: Discharge Order (Routine); Ordered 08/24/22 Ordered By: Amos Spicer Diet: Advance to usual diet Activity on Discharge: As tolerated Stand Alone Forms: Patient Portal Discharge page Care Plan Goals: recovery Health Concerns: RTA Plan of Treatment: kcitrate, follow up nephro and ortho, WBAT, Trial of void once more ambulatory Assessment: see above
[2022-08-24 11:25] LABS: COVID-19 Test Negative (Negative); IDNOW Serial# 08D9AD1C
--- NOTE | 2022-08-24 13:31 | PC.NURSE ---
Pt asked to speak with this RN privately this morning at 0920 with door closed. At this time pt stated that staff here were rough and mean . This RN asked Pt what do you mean by rough and mean? , pt stated people come into the room abruptly and are mean , pt was unable to elaborate any further. This RN notified Nurse Pattern Vault Clerk Shereen. All hygienic care provided by 2 staff members this shift, pt stated care was perfect and we were less rough then staff from yesterday . Will continue to provided care with 2 staff members.
[2022-08-24 16:00] VITALS: BP 108/59; PULSE 93; RESP 17; TEMP 36.5; O2SAT 98
--- NOTE | 2022-08-24 17:30 | PC.NURSE ---
Pt endorsing generalized pain, oxycodone given at 1614, medication list for DC updated accordingly.
[2022-08-25 14:39] LABS: Anti Nuclear Antibody Screen NEGATIVE (NEGATIVE)
== END 2022-08-24 18:42 | disposition skilled nursing facility (03) | DRG 641 ==
LOC: HO.ED 13:39 → HO.EDOVER 16:29 → HO.IMC 16:30 → HO.S3 08-21 08:35
PROVIDERS: Physician Assistant Medical; Admitting Provider Internal Medicine; Emergency Provider Emergency Medicine; PCP Internal Medicine; Visit Provider Internal Medicine
DX: E87.6 Hypokalemia (principal); S32.512A Fracture of superior rim of left pubis, initial encounter for closed fracture; E44.0 Moderate protein-calorie malnutrition; Z68.1 Body mass index [BMI] 19.9 or less, adult; I51.81 Takotsubo syndrome; F41.9 Anxiety disorder, unspecified; E87.21 Acute metabolic acidosis; M35.00 Sjogren syndrome, unspecified; G47.00 Insomnia, unspecified; R33.9 Retention of urine, unspecified; D50.9 Iron deficiency anemia, unspecified; K21.9 Gastro-esophageal reflux disease without esophagitis; Z20.822 Contact with and (suspected) exposure to COVID-19; Z87.891 Personal history of nicotine dependence; Z79.899 Other long term (current) drug therapy; X58.XXXA Exposure to other specified factors, initial encounter
CPT/HCPCS: 36415; 72170; 73560; 73620; 74176; 80048; 80053; 80076; 81001; 82436; 82728; 82803; 83540; 83735; 84133; 84300; 85025; 85027; 86038; 86039; 86431; 87635; 97162; 97163; 99285; C1758; J1650

== ENCOUNTER 2022-09-25 07:17 | Outpatient (REF) | payer MEDICARE, SELFPAY | END 2022-09-25 07:18 | disposition home or self-care (01) | LOC: HO.HOSX 07:17 | PROVIDERS: Visit Provider Physician Assistant | DX: Z13.89 Encounter for screening for other disorder (principal) ==

== ENCOUNTER 2022-11-03 09:58 | Outpatient (REF) | payer MEDICARE, SELFPAY ==
[2022-11-03 10:53] LABS: Hematocrit 33.5 % (37.0-47.0); Hemoglobin 10.4 g/dl (12.0-16.0); Mean Corpuscular Volume 93.3 fL (80.0-98.0); Mean Platelet Volume 9.5 fL (9.4-12.3); Platelet Count 302 X10*3/uL (160-400); Red Blood Count 3.59 X10*6/uL (4.20-5.50); Red Cell Distribution Width 13.9 % (11.0-16.0); White Blood Count 4.7 X10*3/uL (4.8-10.8)
[2022-11-03 12:30] LABS: Anion Gap 17 (12-20); Blood Urea Nitrogen 16 mg/dL (9-16); Calcium 10.1 mg/dL (8.4-10.2); Carbon Dioxide 19 mmol/L (22-29); Chloride 108 mmol/L (96-108); Estimated Glomerular Filt Rate > 60; Glucose Random 143 mg/dL (60-115); Iron 39 mcg/dL (30-160); Percent Iron Saturation 18 % (15-50); Potassium 3.5 mmol/L (3.3-5.1); Sodium 140 mmol/L (135-145); Total Iron Binding Capacity 212 mcg/dL (228-428); Unsaturated Iron Binding 173 ug/dL
== END 2022-11-03 09:59 | disposition home or self-care (01) ==
LOC: HO.LAB 09:58
PROVIDERS: PCP Internal Medicine; Visit Provider Physician Assistant
DX: D50.9 Iron deficiency anemia, unspecified (principal); E87.1 Hypo-osmolality and hyponatremia; E87.6 Hypokalemia
CPT/HCPCS: 36415; 80048; 83540; 84550; 85027

== ENCOUNTER 2022-11-16 14:31 | Outpatient (REF) | payer MEDICARE, SELFPAY ==
[2022-11-16 14:50] LABS: Appearance Urine Cloudy; Color Urine Yellow; Glucose Urine UA Negative (Negative); Leukocyte Esterase Urine Trace (Negative); Nitrite Urine Negative (Negative); Specific Gravity - Urine 1.015 (1.005-1.025); UMIC TRIGGER UACC YES; Urine Blood Trace (Negative); Urine Ketones Negative (Negative); Urine Protein 30 (1+) mg/dL (Neg-Trace)
[2022-11-16 15:21] LABS: Bacteria Urine None Seen (None Seen); Calcium Oxalate Crystals Urine Present; RBC Urine 0-2 /HPF (0-2); UACC Culture Trigger YES
== END 2022-11-16 14:32 | disposition home or self-care (01) ==
LOC: HO.LNP 14:31
PROVIDERS: Visit Provider Internal Medicine
DX: R39.9 Unspecified symptoms and signs involving the genitourinary system (principal)
CPT/HCPCS: 81001; 87086

== ENCOUNTER 2022-11-23 05:58 | Emergency (ER) | payer MEDICARE, SELFPAY ==
--- NOTE | ~2022-11-23 | CT_ITS ---
EXAMINATION: CT HEAD WITHOUT CONTRAST CT CERVICAL SPINE WITHOUT CONTRAST CLINICAL INFORMATION: 71-year-old female status post fall COMPARISON: None TECHNIQUE: Contiguous axial imaging was performed from the skull base to vertex without intravenous administration of contrast. Contiguous axial imaging was performed from the upper chest through the skull base without intravenous administration of contrast. Coronal and sagittal reformats were obtained at the acquisition workstation. This CT examination was performed using dose optimization techniques as appropriate, variously including the following: *Automated exposure control. *Adjustment of mA and/or kV according to patient size (this includes techniques or standardized protocols for targeted exams where dose is matched to indication/reason for exam; i.e. extremities or head). *Use of iterative reconstruction technique. DLP: 1026 mGy-cm FINDINGS: Head: There is no evidence of acute intracranial hemorrhage or edematous territorial infarction. Cabrera-white matter differentiation is preserved. There is no abnormal attenuation within the brain parenchyma. The ventricles are normal in morphology and size. No evidence for obstructive hydrocephalus. No abnormal mass effect or midline shift. No extra-axial fluid collections. No acute soft tissue or osseous abnormalities. The mastoid air cells and visualized paranasal sinuses are clear. Cervical Spine: The atlantooccipital and atlantoaxial articulations remain well aligned. There is anatomic alignment of the vertebral bodies and posterior elements. No evidence of acute fracture or subluxation. The vertebral body height is maintained. There is narrowing of C3-C4, C4-C5, C5-C6 intervertebral disc space without spondylolysis or listhesis. There is large disc osteophyte complex seen at the level of C4-C5 on the right possibly compromising spinal canal. There is mild disc osteophyte complex bulge without canal or foramina compromise at the level of C5-C6. There is no prevertebral soft tissue swelling. The thyroid gland and remaining cervical soft tissues are within normal limits. The lung apices demonstrate no abnormalities. CT/CT cervical spine wo IV con IMPRESSION: 1. No acute intracranial pathology. 2. Multilevel degenerative changes with large disc osteophyte complex at the level of C4-C5 possibly compromising spinal canal.
[2022-11-23 06:07] VITALS: BP 138/82; BP 142/64; PULSE 66; PULSE 89; RESP 18; TEMP 36.6; O2SAT 99; BMI 16.2
[2022-11-23 06:53] LABS: MANUAL DIFF FLAG NO
[2022-11-23 06:54] LABS: Basophils Absolute Auto 0.1 X10*3/uL (0.0-0.2); Basophils Percent Auto 0.7 % (0-2); Eosinophils Absolute Auto 0.1 X10*3/uL (0.0-0.4); Eosinophils Percent Auto 1.1 % (0-4); Hematocrit 34.3 % (37.0-47.0); Imm Gran Abs Auto 0.03 X10*3/uL (0.00-0.03); Imm Gran Pct Auto 0.4 % (0.0-0.4); Lymphocytes Absolute Auto 2.6 X10*3/uL (1.2-4.9); Lymphocytes Percent Auto 35.9 % (20-40); Mean Corpuscular HGB Conc 32.1 g/dl (31.0-35.0); Mean Corpuscular Hemoglobin 29.2 pg (27.0-33.0); Mean Platelet Volume 9.3 fL (9.4-12.3); Monocytes Absolute Auto 0.6 X10*3/uL (0.1-1.2); Monocytes Percent Auto 8.3 % (2-11); Neutrophils Absolute Auto 3.8 x10*3/uL (2.0-8.3); Neutrophils Percent Auto 53.6 % (45-73); Platelet Count 266 X10*3/uL (160-400); Red Blood Count 3.77 X10*6/uL (4.20-5.50); Red Cell Distribution Width 14.8 % (11.0-16.0); White Blood Count 7.1 X10*3/uL (4.8-10.8)
[2022-11-23 07:20] LABS: Alanine Aminotransferase 8 U/L (0-31); Albumin Level 3.6 g/dL (3.5-5.0); Alkaline Phosphatase 181 U/L (39-117); Anion Gap 11 (12-20); Aspartate Amino Transferase 19 U/L (5-31); Bilirubin Total 0.3 mg/dL (0.0-1.0); Blood Urea Nitrogen 23 mg/dL (9-16); Calcium 10.5 mg/dL (8.4-10.2); Carbon Dioxide 17 mmol/L (22-29); Chloride 116 mmol/L (96-108); Creatinine Clr Calc Pharmacy 41.2; Estimated Glomerular Filt Rate > 60; Glucose Random 86 mg/dL (60-115); Potassium 3.6 mmol/L (3.3-5.1); Sodium 140 mmol/L (135-145); Total Protein 6.2 g/dL (6.5-8.0)
--- NOTE | 2022-11-23 07:24 | ECG_ITS ---
Test Reason : FALL Blood Pressure : / mmHG Vent. Rate : 064 BPM Atrial Rate : 064 BPM P-R Int : 132 ms QRS Dur : 088 ms QT Int : 416 ms P-R-T Axes : 075 036 068 degrees QTc Int : 429 ms Normal sinus rhythm Left ventricular hypertrophy with repolarization abnormality ( Metz product ) Abnormal ECG When compared with ECG of 03-AUG-2022 14:16, Nonspecific T wave abnormality now evident in Lateral leads Referred By: Luly Mora Electronically Signed By:EKTA PA
--- NOTE | 2022-11-23 07:45 | ED_ITS ---
HPI - Fall General Chief Complaint: Fall Stated Complaint: fall Time Seen by Provider: 11/23/22 07:02 Source: patient Mode of arrival: EMS History of Present Illness HPI Narrative: 71-year-old female who arrives via ambulance after 2 falls this morning. Patient states that she has had [facility] previously and states that she experienced it again twice today but reports that she has been eating and drinking well and otherwise denies any fever, chills, nausea, vomiting, abdominal pain, shortness of breath, chest pain/palpitations and denies any urinary symptoms though she states she has recently been treated for urinary tract infection with levofloxacin. Her initial fall was at 03:30 and at that time she declined transport. Patient states that she again got up, ambulates at baseline with a walker, and states that she did even make it to the toilet but fell. Patient reports head strike but no LOC and denies any blood thinners. Related Data Previous Rx's Medication Instructions Recorded foot inserts #1 ea 12/04/21 famotidine 20 mg tablet 20 mg PO BID 90 days #180 tabs 03/10/22 bisacodyl 10 mg rectal suppository 10 mg OH DAILY PRN severe 08/09/22 constipation with no bowel movement >3 days 3 days #3 ea sennosides 8.6 mg tablet (senna) 8.6 mg PO BEDTIME PRN constipation 08/09/22 30 days #30 tabs oxycodone 5 mg tablet 5 mg PO Q4H PRN moderate pain #15 08/24/22 tabs potassium bicarbonate-citric acid 25 meq PO BID #0 ea 08/24/22 25 mEq effervescent tablet (Klor-Con/EF) metoprolol succinate 25 mg 25 mg PO DAILY #30 tabs 10/07/22 tablet,extended release 24 hr pantoprazole 40 mg tablet,delayed 40 mg PO DAILY #30 tabs 10/07/22 release quetiapine 50 mg tablet 50 mg PO BID 30 days #60 tabs 10/07/22 temazepam 15 mg capsule 15 mg PO BEDTIME PRN sleep 30 days 10/07/22 #30 caps leno.stocking,knee,reg,smal #12 ea 10/14/22 lorazepam 1 mg tablet 1 mg PO BID PRN anxiety 30 days 10/29/22 #60 tabs lactulose 10 gram/15 mL oral 10 g (15 mL) PO BEDTIME PRN 11/04/22 solution constipation 90 days #237 mL doxycycline hyclate 100 mg tablet 100 mg PO BID 10 days #20 tabs 11/08/22 ferrous sulfate, dried 160 mg (50 160 mg PO DAILY #90 tabs 11/09/22 mg iron) tablet,extended release (Slow Release Iron) erythromycin 5 mg/gram (0.5 %) eye 0.5 inch ophthalmic (eye) BID PRN 11/13/22 ointment stye #3.5 grams levofloxacin 500 mg tablet 500 mg PO DAILY 5 days #5 tabs 11/16/22 phenazopyridine 100 mg tablet 100 mg PO TID PRN pain 2 days #6 11/17/22 tabs sodium phosphates 19 gram-7 118 ml OH BEDTIME PRN constipation 11/20/22 gram/197 mL enema (Fleet Enema #230 mL Extra) Allergies Allergy/AdvReac Type Severity Reaction Status Date / Time No Known Allergies Allergy Verified 11/19/22 16:34 Review of Systems Review of Systems: Pertinent positives and negatives as stated in HPI [facility] Past Medical History Source: nursing notes reviewed Medical History Anxiety Constipation by delayed colonic transit Diarrhea Dry eyes Epidermal inclusion cyst External hemorrhoids GERD (gastroesophageal reflux disease) Hypercalcemia Hyponatremia Insomnia Raynauds disease Renal calculi UTI (urinary tract infection) Villous adenoma of colon White coat syndrome with high blood pressure but without hypertension Surgical History History of bronchoscopy History of tonsillectomy Family History Family History Father Medical history unknown Mother Dementia Alzheimers disease Mental health disorder Brother Leukemia Sister Medical history unknown Social History Social History Household Members: None Housing: Other Housing Other:: assisted living. Alcohol intake: never Patient Tobacco Use Status: Former Tobacco user Tobacco use type: Cigarette Smoked in Last 30 Days: No e-Cigarette/Vaping Use: Never Used Second Hand Smoke Exposure: No Use of substances other than those prescribed or required for medical reasons: No Advance Directives: Yes Advance Directives on File: Yes Advance Directives Date on File: 11/23/22 service: No Current occupational status: retired Cognitive needs: No Hearing needs: No Vision needs: Yes Physical Exam Vital Signs: Vital Signs: Last Vital Signs Temp 97.9 F 11/23/22 06:07 Pulse 77 11/23/22 07:51 Resp 18 11/23/22 06:07 BP 139/77 11/23/22 07:51 Pulse Ox 99 11/23/22 06:07 O2 Del Method Room Air 11/23/22 06:07 BMI result Body Mass Index 16.2 VITAL SIGNS: Reviewed. GENERAL: Cachectic, in no acute distress. HEAD: Normocephalic/atraumatic EYES: PERRLA, EOMI EARS: Ext canals without abnormality NOSE: Nares patent bilateral OROPHARYNX: no oral lesions noted, posterior pharynx clear NECK: Supple, no adenopathy, no cervical spine tenderness on palpation in the midline and no step-offs. LUNGS: Normal breath sounds. No adventitious sounds or accessory muscle use. SpO2<99>; CHEST WALL: No deformity, crepitus, tenderness to palpation CARDIOVASCULAR: Regular rate and rhythm without noted murmurs ABDOMEN: Soft, non-tender, non-distended with bowel sounds. PELVIS: Stable, nontender MUSCULOSKELETAL: No tenderness, deformities, or effusions noted on gross inspection. EXTREMITIES: No cyanosis, clubbing or edema; NEITHER LOWER EXTREMITY A SHORTENED OR ROTATED AND THERE IS GOOD RANGE OF MOTION AT THE KNEES AND ANKLES WITH NEUROVASCULAR INTACT.. SKIN: Inspection of the skin reveals no rashes, NEUROLOGIC: Alert and oriented x 4. Strength and sensation to light touch were grossly intact x 4. Medical Decision Making Medical Decision Making [facility] Narrative: 0749: 71-year-old female with vertigo, fall, will rule out infection/anemia/arrhythmia and will obtain CT imaging of the head and neck. I have reviewed all investigations, there is no evidence of infection/anemia, labs appear chronically stable. Orthostatics appear to be within normal limits, no noted arrhythmias and no urinalysis. This may have been a partial reaction to antibiotics used for UTI. But those have been completed she is otherwise discharged back to the facility in stable condition for re-evaluation further outpatient management. Differential Diagnosis Please see the discussion above Lab Data Please see the discussion above 11/23/22 06:46 11/23/22 06:46 Labs: Lab Results 11/23/22 11/23/22 11/23/22 Range/Units 06:46 06:46 09:12 WBC 7.1 (4.8-10.8) X10*3/uL RBC 3.77 L (4.20-5.50) X10*6/uL Hgb 11.0 L (12.0-16.0) g/dl Hct 34.3 L (37.0-47.0) % MCV 91.0 (80.0-98.0) fL MCH 29.2 (27.0-33.0) pg MCHC 32.1 (31.0-35.0) g/dl RDW 14.8 (11.0-16.0) % Plt Count 266 (160-400) X10*3/uL MPV 9.3 L (9.4-12.3) fL Immature Gran % (Auto) 0.4 (0.0-0.4) % Neut % (Auto) 53.6 (45-73) % Lymph % (Auto) 35.9 (20-40) % Archuleta % (Auto) 8.3 (2-11) % Eos % (Auto) 1.1 (0-4) % Baso % (Auto) 0.7 (0-2) % Lymph # (Auto) 2.6 (1.2-4.9) X10*3/uL Archuleta # (Auto) 0.6 (0.1-1.2) X10*3/uL Eos # (Auto) 0.1 (0.0-0.4) X10*3/uL Baso # (Auto) 0.1 (0.0-0.2) X10*3/uL Abs Immat Gran (auto) 0.03 (0.00-0.03) X10*3/uL Absolute Neuts (auto) 3.8 (2.0-8.3) x10*3/uL Absolute Nucleated RBC 0.000 (0.0-0.012) X10*3/uL Nucleated RBC % (auto) 0.0 (0.0-0.2) /100WBC Sodium 140 (135-145) mmol/L Potassium 3.6 (3.3-5.1) mmol/L Chloride 116 H (96-108) mmol/L Carbon Dioxide 17 L (22-29) mmol/L Anion Gap 11 L (12-20) BUN 23 H (9-16) mg/dL Creatinine 0.72 (0.5-1.4) mg/dL Estim Creat Clear Calc 41.2 Estimated GFR > 60 Random Glucose 86 (60-115) mg/dL Calcium 10.5 H (8.4-10.2) mg/dL Total Bilirubin 0.3 (0.0-1.0) mg/dL AST 19 (5-31) U/L ALT 8 (0-31) U/L Alkaline Phosphatase 181 H (39-117) U/L Total Protein 6.2 L (6.5-8.0) g/dL Albumin 3.6 (3.5-5.0) g/dL Urine Color Yellow Urine Appearance Clear Urine pH 6.0 (5.0-9.0) Ur Specific Adams 1.010 (1.005-1.025) Urine Protein Trace (Neg-Trace) mg/dL Urine Glucose (UA) Negative (Negative) mg/dL Urine Ketones Negative (Negative) mg/dL Urine Blood Negative (Negative) Urine Nitrite Negative (Negative) Ur Leukocyte Esterase Trace H (Negative) Urine RBC 0-2 (0-2) /HPF Urine WBC 0-5 (0-5) /HPF Ur Squamous Epith Cells 0-2 (0-2) /HPF Urine Bacteria None Seen (None Seen) Hyaline Casts 0-2 (0-2) /LPF Independent Interpretation I performed an independent interpretation of an: EKG Interpretation: Normal sinus rhythm, HR-64, no STEMI, OH/QRS/QTC is within normal limits. Radiology Impression Radiologist Impression: My interpretation is in agreement with radiology's impression External Record Review External record reviewed: Prior outpatient labs Discharge Plan Discharge Clinical Impression: Fall, Vertigo Patient Disposition: Xfer Other Instructions: Vertigo (ED), Fall Prevention for Older Adults (ED) Additional Instructions: 1. Resume all home medications as prescribed. 2. Exercise caution with the amount of benzodiazepines that you are using as t his can contribute to feelings of dizziness and vertigo. 3. Follow-up with your primary care provider in the next 1-2 days for re- evaluation further outpatient management. Return to the ER for any worsening symptoms. Prescriptions: No Action (DME) foot inserts See Rx Instructions .Route .MEDSUPPLY Qty: 1 0RF Rx Instructions: As directed bisacodyl 10 mg suppository 10 mg OH DAILY PRN (Reason: severe constipation with no bowel movement >3 days) 3 Days Qty: 3 0RF sennosides [senna] 8.6 mg tablet 8.6 mg PO BEDTIME PRN (Reason: constipation) 30 Days Qty: 30 0RF pantoprazole 40 mg tablet,delayed release (DR/EC) 40 mg PO DAILY Qty: 30 5RF temazepam 15 mg capsule 15 mg PO BEDTIME PRN (Reason: sleep) 30 Days Qty: 30 5RF quetiapine 50 mg tablet 50 mg PO BID 30 Days Qty: 60 5RF metoprolol succinate 25 mg tablet extended release 24 hr 25 mg PO DAILY Qty: 30 5RF (DME) leno.stocking,knee,reg,smal Misc See Rx Instructions .Route Qty: 12 0RF Rx Instructions: As directed lorazepam 1 mg tablet 1 mg PO BID PRN (Reason: anxiety) 30 Days Qty: 60 5RF lactulose 10 gram/15 mL solution 10 g PO BEDTIME PRN (Reason: constipation) 90 Days Qty: 237 0RF doxycycline hyclate 100 mg tablet 100 mg PO BID 10 Days Qty: 20 0RF Slow Release Iron 160 mg (50 mg iron) tablet extended release 160 mg PO DAILY Qty: 90 2RF erythromycin 5 mg/gram (0.5 %) ointment 0.5 inch ophthalmic (eye) BID PRN (Reason: stye) Qty: 3.5 3RF levofloxacin 500 mg tablet 500 mg PO DAILY 5 Days Qty: 5 0RF phenazopyridine 100 mg tablet 100 mg PO TID PRN (Reason: pain) 2 Days Qty: 6 0RF Fleet Enema Extra 19-7 gram/197 mL enema 118 ml OH BEDTIME PRN (Reason: constipation) Qty: 230 0RF Klor-Con/EF 25 mEq Tablet, Effervescent 25 meq PO BID Qty: 0 0RF oxycodone 5 mg Tablet 5 mg PO Q4H PRN (Reason: moderate pain) Qty: 15 0RF Rx Instructions: Partial Fill upon patient request. famotidine 20 mg tablet 20 mg PO BID 90 Days Qty: 180 2RF Referrals: Aniyah Smith MD [Primary Care Provider] -
[2022-11-23 07:50] VITALS: BP 152/77; PULSE 65
[2022-11-23 07:51] VITALS: BP 139/77; BP 162/71; PULSE 70; PULSE 77
[2022-11-23 09:20] LABS: Appearance Urine Clear; Color Urine Yellow; Glucose Urine UA Negative (Negative); Leukocyte Esterase Urine Trace (Negative); Nitrite Urine Negative (Negative); UMIC TRIGGER UACC YES; Urine Blood Negative (Negative); Urine Ketones Negative (Negative); Urine Protein Trace mg/dL (Neg-Trace)
[2022-11-23 09:23] LABS: Bacteria Urine None Seen (None Seen); Hyaline Casts Urine 0-2 /LPF (0-2); RBC Urine 0-2 /HPF (0-2); Squamous Epithelial Cell Urine 0-2 /HPF (0-2); WBC Urine 0-5 /HPF (0-5)
--- NOTE | 2022-11-23 10:14 | PC.NURSE ---
pt was offered several food and drink options,she has declined everything plan is for discharge home
== END 2022-11-23 10:39 | disposition home or self-care (01) ==
PROVIDERS: Emergency Provider Student in an Organized Health Care Education/Training Program; PCP Internal Medicine
DX: R42 Dizziness and giddiness (principal); R51.9 Headache, unspecified; M54.2 Cervicalgia; R94.31 Abnormal electrocardiogram [ECG] [EKG]; Z79.899 Other long term (current) drug therapy
CPT/HCPCS: 36415; 70450; 72125; 80053; 81001; 85025; 93005; 99284; 99285

== ENCOUNTER 2023-01-27 09:31 | Outpatient (REF) | payer MEDICARE, SELFPAY ==
[2023-01-27 09:51] LABS: MANUAL DIFF FLAG NO
[2023-01-27 10:03] LABS: Basophils Percent Auto 0.6 % (0-2); Eosinophils Absolute Auto 0.1 X10*3/uL (0.0-0.4); Eosinophils Percent Auto 2.1 % (0-4); Hematocrit 37.8 % (37.0-47.0); Imm Gran Abs Auto 0.01 X10*3/uL (0.00-0.03); Imm Gran Pct Auto 0.2 % (0.0-0.4); Lymphocytes Absolute Auto 2.1 X10*3/uL (1.2-4.9); Lymphocytes Percent Auto 44.7 % (20-40); Mean Corpuscular HGB Conc 31.7 g/dl (31.0-35.0); Mean Corpuscular Hemoglobin 28.6 pg (27.0-33.0); Mean Corpuscular Volume 90.2 fL (80.0-98.0); Monocytes Absolute Auto 0.3 X10*3/uL (0.1-1.2); Monocytes Percent Auto 6.8 % (2-11); Neutrophils Absolute Auto 2.2 x10*3/uL (2.0-8.3); Neutrophils Percent Auto 45.6 % (45-73); Platelet Count 249 X10*3/uL (160-400); Red Blood Count 4.19 X10*6/uL (4.20-5.50); Red Cell Distribution Width 15.2 % (11.0-16.0); White Blood Count 4.7 X10*3/uL (4.8-10.8)
[2023-01-27 10:36] LABS: Alanine Aminotransferase 9 U/L (0-31); Albumin Level 4.5 g/dL (3.5-5.0); Alkaline Phosphatase 111 U/L (39-117); Anion Gap 13 (12-20); Aspartate Amino Transferase 21 U/L (5-31); Bilirubin Total 0.3 mg/dL (0.0-1.0); Blood Urea Nitrogen 17 mg/dL (9-16); Calcium 10.8 mg/dL (8.4-10.2); Carbon Dioxide 20 mmol/L (22-29); Chloride 110 mmol/L (96-108); Estimated Glomerular Filt Rate > 60; Glucose Fasting 102 mg/dL (60-99); Iron 93 mcg/dL (30-160); Percent Iron Saturation 35 % (15-50); Potassium 3.5 mmol/L (3.3-5.1); Sodium 139 mmol/L (135-145); Total Iron Binding Capacity 268 mcg/dL (228-428); Total Protein 7.5 g/dL (6.5-8.0); Unsaturated Iron Binding 175 ug/dL; Uric Acid 4.6 mg/dL (2.4-5.7)
[2023-01-27 10:52] LABS: Vitamin D 25-OH Total 82.4 ng/mL (>30)
[2023-01-27 11:07] LABS: Folate 18.1 ng/mL (> or = 4.0); Vitamin B12 > 2000 pg/mL (200-900)
[2023-01-28 10:41] LABS: Appearance Urine Cloudy; Color Urine Yellow; Glucose Urine UA Negative (Negative); Leukocyte Esterase Urine Large (3+) (Negative); Nitrite Urine Negative (Negative); PH 5.5 (5.0-9.0); UMIC TRIGGER UACC YES; Urine Blood Small (1+) (Negative); Urine Ketones Negative (Negative); Urine Protein 30 (1+) mg/dL (Neg-Trace)
[2023-01-28 10:53] LABS: Bacteria Urine 4+ (None Seen); Calcium Oxalate Crystals Urine Present; Other Crystals Urine Present; RBC Urine >20 /HPF (0-2); UACC Culture Trigger YES; WBC Urine >50 /HPF (0-5)
== END 2023-01-27 09:32 | disposition home or self-care (01) ==
LOC: HO.LAB 09:31
PROVIDERS: PCP Internal Medicine; Visit Provider Internal Medicine
DX: E55.9 Vitamin D deficiency, unspecified (principal); E53.8 Deficiency of other specified B group vitamins; M10.9 Gout, unspecified; D64.9 Anemia, unspecified; E87.6 Hypokalemia
CPT/HCPCS: 36415; 80053; 81001; 82306; 82607; 82746; 83540; 84550; 85025; 87086; 87088; 87147; 87186

== ENCOUNTER 2023-02-03 10:41 | Outpatient (AMB) | payer MEDICARE, SELFPAY ==
[2023-02-03 10:55] VITALS: BP 120/80; BMI 16.1
--- NOTE | 2023-02-03 10:55 | A.OFFPC_ITS ---
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 Accompanied by: Self / Same As Patient Allergies No Known Allergies Allergy (Verified 02/03/23 11:24) Medication List - Last Reconciled 02/03/23 by Aniyah Mcgregor MD bisacodyl 10 mg NM DAILY PRN 3 days leno.stocking,knee,reg,smal As directed famotidine 20 mg PO BID 90 days ferrous sulfate, dried ER (Slow Release Iron) 160 mg PO DAILY [foot inserts As directed] lactulose 10 grams (15 mL) PO BEDTIME PRN 90 days lorazepam 1 mg PO BID PRN 30 days metoprolol succinate ER 25 mg PO DAILY nitrofurantoin macrocrystal 100 mg PO BID 7 days pantoprazole 40 mg PO DAILY potassium bicarb-citric acid 25 mEq (Klor-Con/EF) 25 mEq PO BID quetiapine 50 mg PO BID 30 days sennosides (senna) 8.6 mg PO BEDTIME PRN 30 days sodium phosphates 19-7 gram/197 mL (Fleet Enema Extra) 118 mL NM BEDTIME PRN temazepam 15 mg PO BEDTIME PRN 30 days Tobacco use date assessed: 10/29/22 Fall risk assessment: No Falls in past year Last assessed Fall Risk: 02/03/23 Dental Screening Dental Screen Date: 02/03/23 Did you have a dental visit in the last 12 months?: Yes Did you have a dental problem in the last 6 months where you did not have access to dental care?: No Was dental information given to patient?: Patient has dentist HPI HPI Comments History of Present Illness Details This is a 72-year-old female with chronic idiopathic constipation, anemia and mild recurrent major depression that comes today for follow-up on her conditions. Constipation stable with lactulose. Hemoglobin has improved to normal levels and I will hold iron. Depression stable with Seroquel. Labs were discussed and she has elevated calcium that will be repeated. Was told to hold vitamin B12 and vitamin-D for now. No chest pain or shortness of breath. Walks with a walker for gait stability. Was accompanied by her healthcare proxy. COUNT INCLUDES [facility] Medical History (Updated 02/03/23 @ 11:53 by Aniyah Mcgregor MD) Anxiety Constipation by delayed colonic transit Diarrhea Dry eyes Epidermal inclusion cyst External hemorrhoids GERD (gastroesophageal reflux disease) Hypercalcemia Hyponatremia Insomnia Raynauds disease Renal calculi UTI (urinary tract infection) Villous adenoma of colon White coat syndrome with high blood pressure but without hypertension Surgical History History of bronchoscopy History of tonsillectomy Family History Father Medical history unknown Mother Dementia Alzheimers disease Mental health disorder Brother Leukemia Sister Medical history unknown Social History Household Members: None Housing: Other Housing Other:: assisted living. Alcohol intake: never Patient Tobacco Use Status: Former Tobacco user Tobacco use type: Cigarette e-Cigarette/Vaping Use: Never Used Second Hand Smoke Exposure: No Advance Directives Date on File: 11/23/22 service: No Current occupational status: retired Cognitive needs: No Hearing needs: No Vision needs: Yes Questionnaire Thrive Questionnaire Date Thrive assessed: 07/21/22 RACHEL-7 AMB Questionnaire RACHEL-7 Date RACHEL - 7 assessed: 07/21/22 Source: Developed by Drs. Julian Mas, Karina Acevedo, Mook Hogue and colleagues, with an educational bernie from [employer]. Review of Systems Const All systems reviewed & are unremarkable except as noted in HPI and below Eyes Reports no additional complaints, Denies change in vision and Denies other visual disturbances Card Denies chest pain at rest, Denies chest pain with activity, Denies edema, Denies irregular heart rhythm, Denies claudication, Denies dyspnea, Denies dyspnea on exertion, Denies orthopnea, Denies paroxysmal nocturnal dyspnea and Denies slow heart rate Resp Denies cough, Denies dyspnea and Denies dyspnea on exertion GI Denies abdominal pain, Denies change in bowel habits, Denies excessive flatus, Denies nausea and Denies vomiting Denies urinary incontinence, Denies urinary hesitancy and Denies urinary urgency Musc Denies abnormal gait, Denies atrophy, Denies deformity and Denies limited range of motion Skin/Breast Denies bleeding lesions, Denies changing lesions and Denies rash Neuro Denies abnormal gait and Denies lack of coordination Physical exam (Primary Care) Vital Signs: Last Vital Signs BP 120/80 02/03/23 10:55 BMI result Body Mass Index 16.1 Tobacco/Smoking Status: Tobacco use Status Tobacco use date assessed 10/29/22 02/03/23 10:59 Patient Tobacco Use Status Former Tobacco user 02/03/23 10:59 Tobacco use type Cigarette 02/03/23 10:59 e-Cigarette/Vaping Use Never Used 02/03/23 10:59 Thrive Assessment: Date of Thrive Assessment Date Thrive assessed 07/21/22 02/03/23 10:59 Const Limitations: ambulation with walker Eyes General: appearance normal, both eyes and all related structures Eyelids: Yes eyelids normal Conjunctivae: conjunctivae normal Neck Neck: Yes normal visual inspection and Yes supple Resp Effort & Inspection: normal respiratory effort Auscultation: clear to auscultation bilaterally Cardio Jugular venous distension: no JVD Rate: regular rate Rhythm: regular rhythm Heart sounds: S1 normal heart sound present and S2 normal heart sound present Extrem General: Yes full ROM Assessment and Plan Assessment & Plan (1) Chronic idiopathic constipation: Code(s): K59.04 - Chronic idiopathic constipation Plan: Continue lactulose as needed. (2) Iron deficiency anemia: Code(s): D50.9 - Iron deficiency anemia, unspecified Qualifiers: Iron deficiency anemia type: inadequate dietary iron intake Qualified Code(s): D50.8 - Other iron deficiency anemias Plan: Hold ferrous sulfate. (3) Hypercalcemia: Code(s): E83.52 - Hypercalcemia Plan: Repeat calcium. (4) Mild recurrent major depression: Code(s): F33.0 - Major depressive disorder, recurrent, mild Plan: Continue Seroquel. Orders: Orders Vitamin B12 and Folate Today E53.8 - Deficiency of other specified B group vitamins Comprehensive [place]. Panel Fast Today K21.9 - Gastro-esophageal reflux disease without esophagitis IRON PROFILE Today D64.9 - Anemia, unspecified Vitamin D 25-OH Total Today E55.9 - Vitamin D deficiency, unspecified Complete Blood Count Auto Diff Today D64.9 - Anemia, unspecified Lipid Panel Today R07.9 - Chest pain, unspecified PTHI Today E83.52 - Hypercalcemia Calcium, Ionized Today E83.52 - Hypercalcemia Calcium, Random Urine Today E83.52 - Hypercalcemia Referrals Dermatology Referral D22.9 - Melanocytic nevi, unspecified Medications: New triamcinolone acetonide 0.5% 1 appl topical DAILY 15 grams 0RF 2 weeks Coding Level of Care Code Est Pt Level 4 (12834) Diagnoses Chronic idiopathic constipation K59.04 Iron deficiency anemia D50.8 Iron deficiency anemia type: inadequate dietary iron intake Hypercalcemia E83.52 Mild recurrent major depression F33.0 Time Spent (min) 22
== END 2023-02-03 11:55 | disposition home or self-care (01) ==
PROVIDERS: PCP Internal Medicine; Visit Provider Internal Medicine
DX: K59.04 Chronic idiopathic constipation (principal); D50.8 Other iron deficiency anemias; E83.52 Hypercalcemia; F33.0 Major depressive disorder, recurrent, mild
CPT/HCPCS: 99214

== ENCOUNTER 2023-02-05 16:08 | Outpatient (REF) | payer MEDICARE, SELFPAY ==
[2023-02-05 16:44] LABS: Appearance Urine Clear; Color Urine Yellow; Glucose Urine UA Negative (Negative); Leukocyte Esterase Urine Negative (Negative); Nitrite Urine Negative (Negative); Urine Blood Negative (Negative); Urine Ketones Negative (Negative); Urine Protein Negative (Neg-Trace)
== END 2023-02-05 16:09 | disposition home or self-care (01) ==
LOC: HO.LNP 16:08
PROVIDERS: Visit Provider Internal Medicine
DX: R30.0 Dysuria (principal)
CPT/HCPCS: 81003

== ENCOUNTER 2023-02-16 12:49 | Outpatient (REF) | payer MEDICARE, SELFPAY ==
[2023-02-16 13:03] LABS: Appearance Urine Cloudy; Color Urine Yellow; Glucose Urine UA Negative (Negative); Leukocyte Esterase Urine Large (3+) (Negative); Nitrite Urine Negative (Negative); UMIC TRIGGER UACC YES; Urine Blood Small (1+) (Negative); Urine Ketones Negative (Negative); Urine Protein Trace mg/dL (Neg-Trace)
[2023-02-16 13:08] LABS: Bacteria Urine 4+ (None Seen); Squamous Epithelial Cell Urine 0-2 /HPF (0-2); UACC Culture Trigger YES; WBC Urine >50 /HPF (0-5)
== END 2023-02-16 12:50 | disposition home or self-care (01) ==
LOC: HO.LNP 12:49
PROVIDERS: Visit Provider Internal Medicine
DX: Z13.89 Encounter for screening for other disorder (principal)
CPT/HCPCS: 81001; 81003; 87086; 87088; 87186

== ENCOUNTER 2023-03-02 10:22 | Outpatient (REF) | payer MEDICARE, SELFPAY ==
[2023-03-02 10:41] LABS: MANUAL DIFF FLAG NO
[2023-03-02 11:44] LABS: Basophils Absolute Auto 0.1 X10*3/uL (0.0-0.2); Basophils Percent Auto 1.3 % (0-2); Eosinophils Absolute Auto 0.1 X10*3/uL (0.0-0.4); Eosinophils Percent Auto 1.7 % (0-4); Hematocrit 37.2 % (37.0-47.0); Imm Gran Abs Auto 0.01 X10*3/uL (0.00-0.03); Imm Gran Pct Auto 0.2 % (0.0-0.4); Lymphocytes Absolute Auto 1.6 X10*3/uL (1.2-4.9); Mean Corpuscular HGB Conc 32.3 g/dl (31.0-35.0); Mean Corpuscular Hemoglobin 29.9 pg (27.0-33.0); Mean Corpuscular Volume 92.8 fL (80.0-98.0); Mean Platelet Volume 9.7 fL (9.4-12.3); Monocytes Absolute Auto 0.4 X10*3/uL (0.1-1.2); Monocytes Percent Auto 7.3 % (2-11); Neutrophils Absolute Auto 2.7 x10*3/uL (2.0-8.3); Neutrophils Percent Auto 55.5 % (45-73); Platelet Count 304 X10*3/uL (160-400); Red Blood Count 4.01 X10*6/uL (4.20-5.50); Red Cell Distribution Width 14.8 % (11.0-16.0); White Blood Count 4.8 X10*3/uL (4.8-10.8)
[2023-03-02 12:59] LABS: Alanine Aminotransferase 9 U/L (0-31); Albumin Level 5.1 g/dL (3.5-5.0); Alkaline Phosphatase 98 U/L (39-117); Anion Gap 15 (12-20); Aspartate Amino Transferase 23 U/L (5-31); Bilirubin Total 0.2 mg/dL (0.0-1.0); Blood Urea Nitrogen 19 mg/dL (9-16); Calcium 11.4 mg/dL (8.4-10.2); Carbon Dioxide 18 mmol/L (22-29); Chloride 107 mmol/L (96-108); Cholesterol 503 mg/dL (<200); Estimated Glomerular Filt Rate 51; Glucose Fasting 79 mg/dL (60-99); HDL Cholesterol 82 mg/dL (>40); Iron 77 mcg/dL (30-160); LDL Cholesterol Calculated 380 mg/dL (<100); Percent Iron Saturation 28 % (15-50); Potassium 3.4 mmol/L (3.3-5.1); Sodium 137 mmol/L (135-145); Total Iron Binding Capacity 276 mcg/dL (228-428); Total Protein 8.4 g/dL (6.5-8.0); Triglycerides 206 mg/dL (<150); Unsaturated Iron Binding 199 ug/dL; Uric Acid 4.3 mg/dL (2.4-5.7)
[2023-03-02 13:17] LABS: Vitamin D 25-OH Total 85.2 ng/mL (>30)
[2023-03-02 13:26] LABS: Vitamin B12 1107 pg/mL (200-900)
[2023-03-04 16:19] LABS: Calcium (PTHI) 10.9 mg/dL (8.6-10.4); PTHI 12 pg/mL (16-77)
[2023-03-06 02:44] LABS: Calcium, Ionized 5.5 mg/dL (4.7-5.5)
== END 2023-03-02 10:23 | disposition home or self-care (01) ==
LOC: HO.LAB 10:22
PROVIDERS: PCP Internal Medicine; Visit Provider Internal Medicine
DX: R07.9 Chest pain, unspecified (principal); K21.9 Gastro-esophageal reflux disease without esophagitis; E55.9 Vitamin D deficiency, unspecified; E53.8 Deficiency of other specified B group vitamins; M10.9 Gout, unspecified; D64.9 Anemia, unspecified
CPT/HCPCS: 36415; 80053; 80061; 82306; 82330; 82607; 82746; 83540; 83970; 84550; 85025

== ENCOUNTER 2023-03-09 13:35 | Outpatient (AMB) | payer MEDICARE, SELFPAY ==
[2023-03-09 13:48] VITALS: BP 112/80; BMI 15.7
--- NOTE | 2023-03-09 13:48 | A.OFFVIS_ITS ---
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 by: rehab consultant Allergies No Known Allergies Allergy (Verified 03/09/23 14:04) Medication List - Last Reconciled 03/09/23 by Aniyah Mcgregor MD atorvastatin 40 mg PO BEDTIME 90 days bisacodyl 10 mg WI DAILY PRN 3 days leno.stocking,knee,reg,smal As directed famotidine 20 mg PO BID 90 days [foot inserts As directed] lactulose 10 grams (15 mL) PO BEDTIME PRN 90 days lorazepam 1 mg PO BID PRN 30 days metoprolol succinate ER 25 mg PO DAILY pantoprazole 40 mg PO DAILY quetiapine 50 mg PO BID 30 days sennosides (senna) 8.6 mg PO BEDTIME PRN 30 days sodium phosphates 19-7 gram/197 mL (Fleet Enema Extra) 118 mL WI BEDTIME PRN temazepam 15 mg PO BEDTIME PRN 30 days triamcinolone acetonide 0.5% 1 appl topical DAILY 2 weeks HPI HPI Comments History of Present Illness Details This is a 72-year-old female with major depression that comes for her Medicare wellness exam accompanied by her healthcare proxy. She walks with a walker for gait stability. She declines more mammogram or colonoscopy this. She has elevated calcium but her ionized calcium was normal and has low parathyroid indicating vitamin-D access. She also has mixed hyperlipidemia and statins was started. Was advised to follow a low-cholesterol diet due to her eating egg yolk every day. Depression has been stable with Seroquel. PPP h anded to patient. Declines flu vaccine but is willing to do pneumonia vaccine. [facility] Medical History External hemorrhoids Epidermal inclusion cyst White coat syndrome with high blood pressure but without hypertension Dry eyes Hyponatremia Hypercalcemia Diarrhea Renal calculi Constipation by delayed colonic transit GERD (gastroesophageal reflux disease) UTI (urinary tract infection) Villous adenoma of colon Insomnia Raynauds disease Anxiety Surgical History History of bronchoscopy History of tonsillectomy Family History Father Medical history unknown Mother Dementia Alzheimers disease Mental health disorder Brother Leukemia Sister Medical history unknown Social History Household Members: None Housing: Other Housing Other:: assisted living. Alcohol intake: never Patient Tobacco Use Status: Former Tobacco user Tobacco use type: Cigarette e-Cigarette/Vaping Use: Never Used Second Hand Smoke Exposure: No Advance Directives Date on File: 11/23/22 service: No Current occupational status: retired Cognitive needs: No Hearing needs: No Vision needs: Yes Questionnaire Medicare Wellness Checkup [age] What gender do you identify with?: female During the past 4 weeks, how much have you been bothered by emotional problems such as feeling anxious, depressed, irritable, sad or downhearted, and blue?: quite a bit During the past 4 weeks, has your physical & emotional health limited your social activities with family, friends, neighbors, or groups?: moderately During the past 4 weeks, how much bodily pain have you generally had?: severe pain During the past 4 weeks, was someone available to help you if you needed & wanted help?: yes, some During the past 4 weeks, what was the hardest physical activity you could do for at least 2 minutes?: very light Can you get to places out of walking distance without help? (For eg., can you travel alone on buses, taxis or drive your car?): No Can you go shopping for groceries or clothes without someone's help?: No Can you prepare your own meals?: No (sometimes) Can you do your housework without help?: No Because of any health problems, do you need the help of another person with your personal care needs such as eating, bathing, dressing or getting around the house?: Yes Can you handle your own money without help?: Yes During the past 4 weeks, how would you rate your health in general?: fair During the past 4 weeks how have things been going for you?: good & bad parts about equal Are you having difficulties driving your car?: not applicable, I don't use a car Do you always fasten your seat belt when you are in a car?: yes, usually During past 4 weeks, have you been bothered by the following: never: Falling or dizzy when standing up, Sexual problems?, Teeth or denture problems? and Problems using the telephone? and sometimes: Trouble eating well? and Tiredness or fatigue? Have you fallen 2 or more times in the past year?: Yes Are you afraid of falling?: Yes Are you a smoker?: no During the past 4 weeks, how many drinks of wine, beer, or other alcoholic beverages did you have?: no alcohol at all Do you exercise for about 20 minutes 3 or more times a week?: no, I usually do not exercise this much Have you been given information to help with the following?: yes: Hazards in your house that might hurt you? and yes: Keeping track of your medications? How often do you have trouble taking medicines the way you have been told to take them?: I always take medicine as prescribed How confident are you that you can control & manage most of your health problems?: somewhat confident What is your race?: White Mini Mental State Exam (MMSE) Orientation What is the (year) (season) (date) (day) (month)?: year, season, date, day and month Where are we (state) (county) (town or city) (hospital) (floor)?: state, county, town or city, hospital/clinic and floor Registration Name of 3 unrelated objects clearly and slowly, then ask patient to repeat all 3 of them. (1st repeat determines score. Make sure they can repeat all three): object 1, object 2 and object 3 Attention & Calculation (CHOOSE ONE) Spell WORLD backwards (DLROW): 5 letters Recall Ask patient to repeat the 3 items from question #3.: object 1, object 2 and object 3 Language Show patient a wristwatch & ask what it is. Repeat for pencil.: watch and pencil Ask the patient to repeat the phrase 'No ifs, ands, or buts' after you.: correct Ask the patient to 'take a piece of paper with their right hand' 'fold paper in half' 'place paper on floor': take paper in right hand, fold paper in half and place paper on floor Print the sentence 'CLOSE YOUR EYES' on a piece. If patient actually closes eyes then score.: followed written direction Give patient a blank piece of paper & ask to write a sentence. Score if it contains a noun & verb.: sentence contains subject and verb Ask patient to copy figure of intersecting pentagons exactly. Score if all 10 angles & 2 intersects are included.: all 10 angles present & 2 are intersected Score Score: 30 Activity of Daily Living Bathing - sponge bath, tub bath or shower: receives help in bathing more than one body part (or not bathed) Dressing - getting clothes from closets & drawers, including inner/outer garments & fasteners.: receives help getting clothes or getting dressed, or stays undressed Toileting - going to the 'toilet room' for urine/bowel elimination & cleaning self/arranging clothes: goes to toilet room, cleans self, arranges clothes without help Transfer: moves in & out of bed or chair with help Continence: has occasional 'accidents' Feeding: feeds self without help Total Score: 2 Information obtained from: patient Using telephone: independent Traveling: dependent Shopping: dependent Preparing meals: dependent Housework: dependent Taking medicine: independent Managing money: independent PHQ-9 Over the last 2 weeks, how often have you been bothered by any of the following problems? 1. Little interest or pleasure in doing things: more than half the days 2. Feeling down, depressed, or hopeless: more than half the days 3. Trouble falling or staying asleep, or sleeping too much: nearly every day 4. Feeling tired or having little energy: nearly every day 5. Poor appetite or overeating: several days 6. Feeling bad about yourself - or that you are a failure or have let yourself or your family down: several days 7. Trouble concentrating on things, such as reading the newspaper or watching television: several days 8. Moving or speaking so slowly that other people could have noticed. Or the opposite - being so fidgety or restless that you have been moving around a lot more than usual: several days 9. Thoughts that you would be better off or of hurting yourself in some way: several days Total score: 15 Depression Screening Interpretation: Positive (No suicidal thoughts) Depression Screening Follow-up: Existing condition and In treatment Depression Screening Done: Yes 08187 - PHQ-9 Billing: Yes Source: Developed by Drs. Julian Mas, Mook Kidd and colleagues, with an educational bernie from [employer]. RACHEL-7 AMB Questionnaire RACHEL-7 Date RACHEL - 7 assessed: 03/09/23 Feeling nervous, anxious, or on edge: 1 = Several days Not being able to stop or control worryin = Not at all Worrying too much about different things: 1 = Several days Trouble relaxin = Not at all Being so restless that it is hard to sit still: 0 = Not at all Becoming easily annoyed or irritable: 0 = Not at all Feeling afraid as if something awful might happen: 0 = Not at all Total RACHEL-7 score (0-4 normal; 5-9 mild; 10-14 moderate; 15-21 severe): 2 Source: Developed by Drs. Julian Mas, Mook Kidd and colleagues, with an educational bernie from [employer]. RACHEL-7 Assessment Billing RACHEL-7 Assessment Tool: RACHEL-7 Assessment 60688 Review of Systems Const All systems reviewed & are unremarkable except as noted in HPI and below Eyes Reports no additional complaints, Denies change in vision and Denies other visual disturbances Card Denies chest pain at rest, Denies chest pain with activity, Denies edema, Denies irregular heart rhythm, Denies claudication, Denies dyspnea, Denies dyspnea on exertion, Denies orthopnea, Denies paroxysmal nocturnal dyspnea and Denies slow heart rate Resp Denies cough, Denies dyspnea and Denies dyspnea on exertion GI Denies abdominal pain, Denies change in bowel habits, Denies excessive flatus, Denies nausea and Denies vomiting Denies urinary incontinence, Denies urinary hesitancy and Denies urinary urgency Musc Denies abnormal gait, Denies atrophy, Denies deformity and Denies limited range of motion Skin/Breast Denies bleeding lesions, Denies changing lesions and Denies rash Neuro Denies abnormal gait, Denies behavioral changes, Denies confusion and Denies lack of coordination Psych Denies behavioral changes and Denies confusion Physical Exam Vital Signs: Last Vital Signs BP 112/80 03/09/23 13:48 BMI result Body Mass Index 15.7 Const General: No confusion Orientation/consciousness: No confusion Limitations: ambulation with walker HEENT Ears: hearing grossly normal bilaterally Resp Auscultation: clear to auscultation bilaterally Cardio Heart sounds: S1 normal heart sound present and S2 normal heart sound present Neuro General: No confusion Cognition (Neuro): normal cognition Romberg Test: Negative Office Procedures Flu Questionnaire Does the patient have a severe egg allergy?: No Immunizations flu vacc [id number] 6mos up(PF) 60 mcg(15 mcgx4)/0.5 mL IM syringe Performing Provider: Aniyah Mcgregor MD Performing Location: [facility] [place] [facility] Documented (not given) by: LONG Huggins on 03/09/23 14:16 Reason Not Given: Patient Refused pneumoc 20-toya conj-dip cr(PF) 0.5 mL IM syringe Performing Provider: Aniyah Mcgregor MD Performing Location: [facility] Administered by: Fely Bland RN on 03/09/23 14:57 Dose Route Admin Location Dispensed Lot Number Expiration Date NDC Rug Cleaner 0.5 mL IM Left Deltoid 0.5 mL [id number] 04/05/24 9131-1414-14 [employer] VIS Given Date VIS Provided VIS Publication Date 03/09/23 Single Vaccine 21 Eligibility Eligibility Date Funding Source Not VFC Eligible 03/09/23 Private Assessment & Plan Assessment & Plan (1) Encounter for annual wellness exam in Medicare patient: Code(s): Z00.00 - Encounter for general adult medical examination without abnormal findings Plan: Repeat in a year (2) Mild recurrent major depression: Code(s): F33.0 - Major depressive disorder, recurrent, mild Plan: Continue Seroquel Orders: Orders Influenza [id number] Immunization Today Z23 - Encounter for immunization Lipid Panel 5 Months E78.5 - Hyperlipidemia, unspecified Comprehensive [place]. Panel Fast 5 Months E78.00 - Pure hypercholesterolemia, unspecified Vitamin D 25-OH (D2 and D3) 5 Months E55.9 - Vitamin D deficiency, unspecified Complete Blood Count Auto Diff 5 Months D64.9 - Anemia, unspecified Calcium, Ionized 5 Months E83.52 - Hypercalcemia Calcium, 24 Hr Ur 5 Months E83.52 - Hypercalcemia Pneumococcal 20 Immunization Today Z23 - Encounter for immunization Pneumococcal 20 Immunization Today Z23 - Encounter for immunization Vitamin D 25-OH Total 5 Months E55.9 - Vitamin D deficiency, unspecified IRON PROFILE 5 Months D64.9 - Anemia, unspecified PTHI 5 Months E83.52 - Hypercalcemia Phosphorus 5 Months E83.52 - Hypercalcemia Vitamin B12 and Folate 5 Months E53.8 - Deficiency of other specified B group vitamins Medications: New pneumoc 20-toya conj-dip cr(PF) 0.5 mL IM ONCE 0.5 mL 0RF Z23 - Encounter for immunization Refilled lorazepam 1 mg PO BID 30 days PRN 60 tabs 5RF anxiety quetiapine 50 mg PO BID 30 days 60 tabs 5RF temazepam 15 mg PO BEDTIME 30 days PRN 30 caps 5RF sleep Quality Reporting (2019) Depression/Bipolar (159/160/161/177) PHQ-9: Total score: 15 Coding Level of Care Code Medicare Subsequent (G0439) Diagnoses Encounter for annual wellness exam in Medicare patient Z00.00 Mild recurrent major depression F33.0 Additional Codes RACHEL-7 Assessment Billing - RACHEL-7 Assessment Tool: RACHEL-7 Assessment 34874 ([id number]) Time Spent (min) 40 Advance Care Planning Advance Care Planning discussion: Completed/Scanned Forms completed: Health Care Proxy
== END 2023-03-09 14:43 | disposition home or self-care (01) ==
PROVIDERS: PCP Internal Medicine; Visit Provider Internal Medicine
DX: Z00.00 Encounter for general adult medical examination without abnormal findings (principal); F33.0 Major depressive disorder, recurrent, mild; Z23 Encounter for immunization
CPT/HCPCS: 90471; 90677; G0439

== ENCOUNTER 2023-04-16 11:59 | Outpatient (REF) | payer MEDICARE, SELFPAY ==
[2023-04-16 12:17] LABS: Appearance Urine Cloudy; Color Urine Yellow; Glucose Urine UA Negative (Negative); Leukocyte Esterase Urine Moderate (2+) (Negative); Nitrite Urine Negative (Negative); Specific Gravity - Urine 1.015 (1.005-1.025); UMIC TRIGGER UACC YES; Urine Blood Negative (Negative); Urine Ketones Negative (Negative); Urine Protein 30 (1+) mg/dL (Neg-Trace)
[2023-04-16 12:29] LABS: Bacteria Urine 2+ (None Seen); UACC Culture Trigger YES; WBC Urine >50 /HPF (0-5)
== END 2023-04-16 12:00 | disposition home or self-care (01) ==
LOC: HO.LNP 11:59
PROVIDERS: Visit Provider Internal Medicine
DX: R39.9 Unspecified symptoms and signs involving the genitourinary system (principal)
CPT/HCPCS: 81001; 81003; 87086; 87088; 87186

== ENCOUNTER 2023-05-17 11:39 | Outpatient (AMB) | payer MEDICARE, SELFPAY ==
--- NOTE | 2023-05-17 11:51 | A.OFFVIS_ITS ---
Intake Intake Visit Reasons: Urinary tract infection Intake Note: Patient is present for follow up recurrent uti Urology Medication: None Blood Thinner: none PVR: 0ml's President And Chief Executive Officer Required: No Accompanied by: Unknown Allergies No Known Allergies Allergy (Verified 05/17/23 13:06) Medication List - Last Reconciled 05/17/23 by HAVEN Vora atorvastatin 40 mg PO BEDTIME 90 days bisacodyl 10 mg [place] DAILY PRN 3 days leno.stocking,knee,reg,smal As directed famotidine 20 mg PO BID 90 days [foot inserts As directed] lactulose 10 grams (15 mL) PO BEDTIME PRN 90 days lorazepam 1 mg PO BID PRN 30 days metoprolol succinate ER 25 mg PO DAILY pantoprazole 40 mg PO DAILY quetiapine 50 mg PO BID 30 days sennosides (senna) 8.6 mg PO BEDTIME PRN 30 days sodium phosphates 19-7 gram/197 mL (Fleet Enema Extra) 118 mL [place] BEDTIME PRN temazepam 15 mg PO BEDTIME PRN 30 days triamcinolone acetonide 0.5% 1 appl topical DAILY 2 weeks HPI HPI Comments History of Present Illness Details Charmaine is a very pleasant 72 year old female patient of Dr. Banks was accompanied by her healthcare proxy Mony at today's office visit. She has a past medical history of hemorrhoids, hyponatremia, hypercalcemia, nephrolithiasis, constipation, GERD, insomnia, Raynaud's disease, and anxiety. She presents to the office today for follow-up of her nephrolithiasis, general urinary syndrome of menopause, and most recent recurrent urinary tract infections. In discussion with the patient today she reports having follow-up with her PCP multiple times over the last 2-3 months regarding her ongoing lower urinary tract symptoms. She reports having been on multiple antibiotic therapies for urinary tract infections she has been having. When asked she continues to report urinary urgency, urinary frequency, nocturia as well as having episodes of dysuria. She discusses having fractured her hip earlier this year in August at which time she went to [facility] for short-term rehab however is now at home and recovering well. In office urinalysis results reviewed with the patient today. Negative for leukocytes, nitrates, and or microscopic hematuria. When asked patient reports having completed antibiotic therapy over 9 days ago. PVR 78 mL. Discussed at length potential causes for lower urinary tract symptoms patient is experiencing. Of note, patient was last seen approximately [address] Banegas for her longstanding history of nephrolithiasis. Discussed obtaining retroperitoneal ultrasound for further assessment evaluation. She otherwise denies hematuria foul smelling urine, changes to urinary stream, flank pain, fever, and or chills. Nephrolithiasis No prior renal calculi Imaging - 09/25 CT scan bilateral 5 mm stones - 10/26 renal ultrasound with increase in stone burden bilateral - 03/28 renal ultrasound multiple echoge giselle foci 3 mm right side, 8 mm left side Currently nonsymptomatic Targets 60 oz fluid per day Genitourinary syndrome of menopause Urinary urgency Discomfort around urethra On exam has atopic changes Initiate [facility] Medical History External hemorrhoids Epidermal inclusion cyst White coat syndrome with high blood pressure but without hypertension Dry eyes Hyponatremia Hypercalcemia Diarrhea Renal calculi Constipation by delayed colonic transit GERD (gastroesophageal reflux disease) UTI (urinary tract infection) Villous adenoma of colon Insomnia Raynauds disease Anxiety Surgical History History of bronchoscopy History of tonsillectomy Family History Father Medical history unknown Mother Dementia Alzheimers disease Mental health disorder Brother Leukemia Sister Medical history unknown Social History Household Members: None Housing: Other Housing Other:: assisted living. Alcohol intake: never Patient Tobacco Use Status: Former Tobacco user Tobacco use type: Cigarette e-Cigarette/Vaping Use: Never Used Second Hand Smoke Exposure: No Advance Directives Date on File: 11/23/22 service: No Current occupational status: retired Cognitive needs: No Hearing needs: No Vision needs: Yes Review of Systems Const Reports as per HPI Eyes Reports no additional complaints ENT Reports no additional complaints Card Reports as per HPI Resp Reports no additional complaints GI Reports as per HPI Reports as per HPI Musc Reports as per HPI Neuro Reports no additional complaints Psych Reports as per HPI Endo Reports no additional complaints Paco/Lymph Reports no additional complaints Aller/Immun Reports no additional complaints Physical Exam Const General: cooperative, comfortable, no acute distress, well developed, alert and awake Nutritional Appearance: thin Orientation/consciousness: patient oriented x3 Limitations: ambulation with walker HEENT Head: Yes normal to inspection, Yes normocephalic and Yes atraumatic Ears: hearing grossly normal bilaterally Eyes General: appearance normal, both eyes and all related structures Neck Neck: Yes normal visual inspection and Yes trachea midline Chest Chest palpation & inspection: normal inspection of the chest Resp Effort & Inspection: normal respiratory effort and able to speak in complete sentences Cardio Rate: regular rate GI Inspection: Yes normal to inspection General: Yes no CVA tenderness Back/Spine/Pelvis Back: no CVA tenderness Skin General skin exam: no rashes or lesions noted Neuro General: patient oriented x3 Extrem General: Yes normal to inspection Psych Appearance: grossly normal and well kempt Mental Status: mental status grossly normal Speech and movement: Normal speech and movement present and Clear speech present Affect: normal affect Attitude: cooperative Thought process: Normal thought process present Thought content: Normal thought content present Insight: Fair insight present (Psych) Judgement: Fair judgement present (Psych) Office Procedures Post Void Residual Post Residual Void Post Void Residual (PVR): 78 [id number] Void Residual by ultrasound Results AMB Urinalysis, Automated UA Leukoctes 0 Kike/uL Last Edit by [employer] on 05/17/23 12:22 UA Nitrite Negative Last Edit by [employer] on 05/17/23 12:22 UA Urobilinogen 0.2 mg/dL Last Edit by [employer] on 05/17/23 12:22 UA Protein 15 mg/dL Last Edit by [employer] on 05/17/23 12:22 UA pH 6.0 Last Edit by [employer] on 05/17/23 12:22 UA Blood 0 Fadi/uL Last Edit by [employer] on 05/17/23 12:22 UA Specific Rhine 1.010 Last Edit by [employer] on 05/17/23 12:22 UA Ketone Negative Last Edit by [employer] on 05/17/23 12:22 UA Bilirubin 0 mg/dL Last Edit by [employer] on 05/17/23 12:22 UA Glucose 0 mg/dL Last Edit by [employer] on 05/17/23 12:22 Results Reviewed Results Reviewed: Laboratory Last Values Urine pH (Auto) 6.0 05/17/23 12:13 Specific Rh[place] (Auto) 1.010 05/17/23 12:13 Urine Protein (Auto) 15 mg/dL 05/17/23 12:13 Glucose (UA)(Auto) 0 mg/dL 05/17/23 12:13 Urine Ketones (Auto) Negative 05/17/23 12:13 Urine Blood (Auto) 0 Fadi/uL 05/17/23 12:13 Urine Nitrite (Auto) Negative 05/17/23 12:13 Urine Bilirubin (Auto) 0 mg/dL 05/17/23 12:13 Urine Urobilinogen (Auto) 0.2 mg/dL 05/17/23 12:13 Leukocyte Esterase (Auto) 0 Kike/uL 05/17/23 12:13 Assessment & Plan Assessment & Plan (1) Urinary frequency: Code(s): R35.0 - Frequency of micturition (2) Urinary urgency: Code(s): R39.15 - Urgency of urination (3) Recurrent urinary tract infection: Code(s): N39.0 - Urinary tract infection, site not specified (4) Bilateral nephrolithiasis: Code(s): N20.0 - Calculus of kidney Plan In office urinalysis results reviewed with the patient today; will send for urine culture PVR 78 mL. Discussed at length potential causes for lower urinary tract symptoms patient is experiencing Will obtain retroperitoneal ultrasound for further assessment evaluation. Start 25 mg of Myrbetriq daily as discussed and prescribed. Discussed proper hygiene Discussed UTI prevention with D mannose supplement, vitamin-C, increasing fluid intake, behavioral therapy with timed voiding, perineal hygiene and postcoital voiding, and management of constipation with stool softeners and increased fiber intake. Follow-up in 1-2 months with imaging to be completed prior PVR at next office visit; or sooner with any issues, concerns, and or questions. Orders: Orders AMB Urinalysis Automated Today Z13.9 - Encounter for screening, unspecified Urine Culture Today N39.0 - Urinary tract infection, site not specified AMB Post Void Residual by ultrasound Today N39.0 - Urinary tract infection, site not specified US retroperitoneal comp Today N39.0 - Urinary tract infection, site not specified, R35.0 - Frequency of micturition, R39.15 - Urgency of urination Medications: New mirabegron ER (Myrbetriq) 25 mg PO DAILY 30 tabs 1RF 30 days N30.10 - Interstitial cystitis (chronic) without hematuria, N32.81 - Overactive bladder, R35.1 - Nocturia, R39.15 - Urgency of urination Patient Instructions: The patient had an opportunity to ask questions regarding the treatment plan. All questions were answered. Physical exam, labs, and imaging were discussed and reviewed in detail. As well as risks, benefits, and discussion of treatment choices. No major barriers to understanding were identified. The patient expressed understanding and agreement with the above treatment plan. The patient was made aware they should contact our office by phone for worsening of their current condition, the appearance of new symptoms, or with any questions or concerns. Compliance is encouraged with any medications and follow up testing that is ordered. It is a privilege to be allowed the opportunity to participate in? your urological care.? Again, if you have any questions or concerns If you have any questions or concerns please do not hesitate to contact me. The office is [phone]. This note is constructed using voice recognition software. While every effort has been made to ensure accuracy acetylene gas compressor errors may have been included. Yours sincerely, HAVNE Vora Coding Level of Care Code Est Pt Level 4 (10018) Diagnoses Urinary frequency R35.0 Urinary urgency R39.15 Recurrent urinary tract infection N39.0 Bilateral nephrolithiasis N20.0 CPT Codes Post Residual Void - PVR CPT Code: 14576-[id number] Void Residual by ultrasound ([id number])
== END 2023-05-17 12:45 | disposition home or self-care (01) ==
PROVIDERS: PCP Internal Medicine; Visit Provider Nurse Practitioner Family
DX: R35.0 Frequency of micturition (principal); R39.15 Urgency of urination; N39.0 Urinary tract infection, site not specified; N20.0 Calculus of kidney; Z13.9 Encounter for screening, unspecified
CPT/HCPCS: 99214

== ENCOUNTER 2023-05-17 11:39 | Outpatient (REF) | payer MEDICARE, SELFPAY | END 2023-05-17 11:40 | disposition home or self-care (01) | LOC: HO.LNP 11:39 | PROVIDERS: PCP Internal Medicine; Visit Provider Nurse Practitioner Family | DX: R35.0 Frequency of micturition (principal); R39.15 Urgency of urination; N39.0 Urinary tract infection, site not specified; N20.0 Calculus of kidney | CPT/HCPCS: 51798; 81003; 87086; 99212 ==

== ENCOUNTER → 2023-05-25 09:34 | Outpatient (BNVA) | payer MEDICARE, SELFPAY | PROVIDERS: PCP Internal Medicine; Visit Provider Nurse Practitioner Family | DX: N39.0 Urinary tract infection, site not specified (principal) | CPT/HCPCS: 51701; 51798 ==

== ENCOUNTER 2023-07-16 02:40 | Inpatient (IN) | payer MEDICARE, SELFPAY ==
[2023-07-16] VITALS (10 sets, daily range): BP systolic 105–142; BP diastolic 56–88; PULSE 67–83; RESP 12–17; TEMP 36.4–36.7; O2SAT 95–98; BMI 16.6
--- NOTE | ~2023-07-16 | CT_ITS ---
EXAMINATION: CT HEAD WITHOUT CONTRAST CT CERVICAL SPINE WITHOUT CONTRAST CLINICAL INFORMATION: Fall. COMPARISON: 11/23/2022 TECHNIQUE: Contiguous axial imaging was performed through the head and cervical spine without intravenous administration of contrast. Sagittal and coronal reformatted images also obtained. This CT examination was performed using dose optimization techniques as appropriate, variously including the following: *Automated exposure control *Adjustment of mA and/or kV according to patient size (this includes techniques or standardized protocols for targeted exams where dose is matched to indication/reason for exam; i.e. extremities or head) *Use of iterative reconstruction technique DLP: 787 mGy-cm FINDINGS: There is mild cerebral volume loss with prominence of the lateral and the third ventricles. The cortical sulci are widened appropriately. The fourth ventricle and basal cisterns are normally outlined. There is mild to moderate bilateral periventricular and central white matter diminished attenuation. There is no acute territorial defect, hemorrhage or midline shift. The extra-axial spaces are unremarkable. Calvarium: Intact. Maxillofacial sinuses and mastoids: Clear as visualized. Cervical spine: There is diffuse mefl-uk-kedoyekg cervical disc degenerative change with loss of disc space, endplate change and prominent posterior osteophytes at C3-C4, C4-C5 and C5-C6 associated with diffuse facet osteoarthritic hypertrophic change with multilevel mild spinal canal and multilevel tzcl-wd-llvpfnya neuroforaminal narrowing. The bony structures are osteopenic. No fracture is seen. The soft tissues are unremarkable. The visualized upper lung land are clear. CT/CT cervical spine wo IV con IMPRESSION: 1. No acute intracranial process seen. 2. Moderate cerebral volume loss with chronic small vessel ischemic changes. 3. There is no acute fracture, dislocation or subluxation cervical spine. There are degenerative disc changes and facet joint arthropathy as described above.
--- NOTE | ~2023-07-16 | CT_ITS ---
EXAMINATION: CT HEAD WITHOUT CONTRAST CT CERVICAL SPINE WITHOUT CONTRAST CLINICAL INFORMATION: Fall. COMPARISON: 11/23/2022 TECHNIQUE: Contiguous axial imaging was performed through the head and cervical spine without intravenous administration of contrast. Sagittal and coronal reformatted images also obtained. This CT examination was performed using dose optimization techniques as appropriate, variously including the following: *Automated exposure control *Adjustment of mA and/or kV according to patient size (this includes techniques or standardized protocols for targeted exams where dose is matched to indication/reason for exam; i.e. extremities or head) *Use of iterative reconstruction technique DLP: 787 mGy-cm FINDINGS: There is mild cerebral volume loss with prominence of the lateral and the third ventricles. The cortical sulci are widened appropriately. The fourth ventricle and basal cisterns are normally outlined. There is mild to moderate bilateral periventricular and central white matter diminished attenuation. There is no acute territorial defect, hemorrhage or midline shift. The extra-axial spaces are unremarkable. Calvarium: Intact. Maxillofacial sinuses and mastoids: Clear as visualized. Cervical spine: There is diffuse aufr-zv-ufbpzrrb cervical disc degenerative change with loss of disc space, endplate change and prominent posterior osteophytes at C3-C4, C4-C5 and C5-C6 associated with diffuse facet osteoarthritic hypertrophic change with multilevel mild spinal canal and multilevel qzye-gl-fhgzvitz neuroforaminal narrowing. The bony structures are osteopenic. No fracture is seen. The soft tissues are unremarkable. The visualized upper lung land are clear. CT/CT head/brain wo IV con IMPRESSION: 1. No acute intracranial process seen. 2. Moderate cerebral volume loss with chronic small vessel ischemic changes. 3. There is no acute fracture, dislocation or subluxation cervical spine. There are degenerative disc changes and facet joint arthropathy as described above.
--- NOTE | ~2023-07-16 | CT_ITS ---
EXAMINATION: CT CHEST WITHOUT CONTRAST CT ABDOMEN AND PELVIS CLINICAL INFORMATION: Fall. Pain. COMPARISON: None available. TECHNIQUE: Multidetector volumetric CT imaging of the chest,abdomen and pelvis was done. Sagittal and coronal reformatted images were obtained. This CT examination was performed using dose optimization techniques as appropriate, variously including the following: *Automated exposure control *Adjustment of mA and/or kV according to patient size (this includes techniques or standardized protocols for targeted exams where dose is matched to indication/reason for exam; i.e. 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 LUNGS: There is emphysematous change. There is scarring and/or subsegmental atelectasis at the left lung base associated with a minimal left pleural effusion. There is also scarring at the right lung base and right lung apex. There is a 3 mm pleural nodule along the major fissure on the left. There is a 5 mm left lower lobe nodule (series 7 image 35). MEDIASTINUM: The heart is normal in size. There is no pericardial effusion. There is no significant lymph node enlargement. CORONARY ARTERY CALCIFICATION: None visualized on this study. PLEURA: There is a minimal left pleural effusion. AXILLA: No lymphadenopathy. Evaluation of the abdomen is limited by lack of oral and IV contrast. LIVER, GALLBLADDER, AND BILIARY TREE: The liver is normal in size, shape, and attenuation. Scattered bilateral subcentimeter hepatic hypodensities likely small cysts. The gallbladder is unremarkable with no evidence of radiopaque gallstones, gallbladder wall thickening, or obvious pericholecystic inflammatory changes. PANCREAS: Unremarkable although limited by lack of oral and IV contrast. SPLEEN: Unremarkable. ADRENAL GLANDS: Unremarkable. KIDNEYS AND URETERS: The kidneys are normal in size, shape, and attenuation. There are multiple bilateral renal calculi measuring up to 8 mm mid pole left kidney. BLADDER: Unremarkable. GASTROINTESTINAL TRACT: There is retained stool. The appendix is not seen. There is no evidence for bowel obstruction. ABDOMINAL WALL: No significant hernia is appreciated. LYMPH NODES: Normal. VASCULAR: There is mild atherosclerotic plaque of the abdominal aorta and proximal branches. PELVIC VISCERA: Unremarkable. OSSEOUS STRUCTURES: There are T8 and T11 compression fractures. There are degenerative changes throughout the thoracolumbar spine with enac-mp-evparcxx curvature to the left. CT/CT abdomen pelvis wo IV con IMPRESSION: T8 and T11 compression fractures. The T11 fracture was not present previously and may be acute. Scarring and/or subsegmental atelectasis at the left lung base associated with a minimal left pleural effusion. Bilateral renal calculi. Emphysema. 5 mm left lower lobe nodule. Per the 2017 revised Fleischner Society guidelines, no routine follow up is recommended for solid nodules < 6mm in the middle/lower lobes. Fleischner guidelines were followed.
--- NOTE | ~2023-07-16 | CT_ITS ---
EXAMINATION: CT CHEST WITHOUT CONTRAST CT ABDOMEN AND PELVIS CLINICAL INFORMATION: Fall. Pain. COMPARISON: None available. TECHNIQUE: Multidetector volumetric CT imaging of the chest,abdomen and pelvis was done. Sagittal and coronal reformatted images were obtained. This CT examination was performed using dose optimization techniques as appropriate, variously including the following: *Automated exposure control *Adjustment of mA and/or kV according to patient size (this includes techniques or standardized protocols for targeted exams where dose is matched to indication/reason for exam; i.e. extremities or head) *Use of iterative reconstruction technique DLP: 405 mGy-cm FINDINGS: SECURITY SYSTEMS INTEGRATOR: There is curvature of the thoracolumbar spine to the left. LUNGS: There is emphysematous change. There is scarring and/or subsegmental atelectasis at the left lung base associated with a minimal left pleural effusion. There is also scarring at the right lung base and right lung apex. There is a 3 mm pleural nodule along the major fissure on the left. There is a 5 mm left lower lobe nodule (series 7 image 35). MEDIASTINUM: The heart is normal in size. There is no pericardial effusion. There is no significant lymph node enlargement. CORONARY ARTERY CALCIFICATION: None visualized on this study. PLEURA: There is a minimal left pleural effusion. AXILLA: No lymphadenopathy. Evaluation of the abdomen is limited by lack of oral and IV contrast. LIVER, GALLBLADDER, AND BILIARY TREE: The liver is normal in size, shape, and attenuation. Scattered bilateral subcentimeter hepatic hypodensities likely small cysts. The gallbladder is unremarkable with no evidence of radiopaque gallstones, gallbladder wall thickening, or obvious pericholecystic inflammatory changes. PANCREAS: Unremarkable although limited by lack of oral and IV contrast. SPLEEN: Unremarkable. ADRENAL GLANDS: Unremarkable. KIDNEYS AND URETERS: The kidneys are normal in size, shape, and attenuation. There are multiple bilateral renal calculi measuring up to 8 mm mid pole left kidney. BLADDER: Unremarkable. GASTROINTESTINAL TRACT: There is retained stool. The appendix is not seen. There is no evidence for bowel obstruction. ABDOMINAL WALL: No significant hernia is appreciated. LYMPH NODES: Normal. VASCULAR: There is mild atherosclerotic plaque of the abdominal aorta and proximal branches. PELVIC VISCERA: Unremarkable. OSSEOUS STRUCTURES: There are T8 and T11 compression fractures. There are degenerative changes throughout the thoracolumbar spine with trzt-jp-liltcfgd curvature to the left. CT/CT chest wo IV con IMPRESSION: T8 and T11 compression fractures. The T11 fracture was not present previously and may be acute. Scarring and/or subsegmental atelectasis at the left lung base associated with a minimal left pleural effusion. Bilateral renal calculi. Emphysema. 5 mm left lower lobe nodule. Per the 2017 revised Fleischner Society guidelines, no routine follow up is recommended for solid nodules < 6mm in the middle/lower lobes. Fleischner guidelines were followed.
--- NOTE | 2023-07-16 03:28 | ECG_ITS ---
Test Reason : FALL Blood Pressure : / mmHG Vent. Rate : 072 BPM Atrial Rate : 072 BPM P-R Int : 126 ms QRS Dur : 092 ms QT Int : 386 ms P-R-T Axes : 072 027 -50 degrees QTc Int : 422 ms Normal sinus rhythm ST & T wave abnormality, consider anterolateral ischemia Abnormal ECG When compared with ECG of 23-NOV-2022 07:29, T wave inversion now evident in Inferior leads T wave inversion now evident in Anterior leads Referred By: Alesia An Electronically Signed By:EKTA PA
--- NOTE | 2023-07-16 03:54 | ED_ITS ---
HPI - General Adult General Chief complaint: Fall Stated complaint: FALL Time Seen by Provider: 07/16/23 03:27 Source: patient and EMS Mode of arrival: EMS Limitations: no limitations History of Present Illness HPI narrative: A 72-year-old female came in by EMS for evaluation after falling off the bed. Patient was trying to get up felt lightheaded and dizzy fell down thinks that she pulled her chest muscle causing bilateral chest pain, patient also reported head injury, no LOC, no CP, no SOB, no abdominal pain, no extremities pain. Related Data Previous Rx's Medication Instructions Recorded foot inserts #1 ea 12/04/21 bisacodyl 10 mg rectal suppository 10 mg [place] DAILY PRN severe 08/09/22 constipation with no bowel movement >3 days 3 days #3 ea sennosides 8.6 mg tablet (senna) 8.6 mg PO BEDTIME PRN constipation 08/09/22 30 days #30 tabs leno.stocking,knee,reg,smal #12 ea 10/14/22 sodium phosphates 19 gram-7 118 ml [place] BEDTIME PRN constipation 11/20/22 gram/197 mL enema (Fleet Enema #230 mL Extra) triamcinolone acetonide 0.5 % 1 appl topical DAILY 2 weeks #15 02/03/23 topical cream grams atorvastatin 40 mg tablet 40 mg PO BEDTIME 90 days #90 tabs 03/09/23 famotidine 20 mg tablet 20 mg PO BID 90 days #180 tabs 03/09/23 lorazepam 1 mg tablet 1 mg PO BID PRN anxiety 30 days 03/09/23 #60 tabs metoprolol succinate 25 mg 25 mg PO DAILY #30 tabs 03/09/23 tablet,extended release 24 hr pantoprazole 40 mg tablet,delayed 40 mg PO DAILY #30 tabs 03/09/23 release quetiapine 50 mg tablet 50 mg PO BID 30 days #60 tabs 03/09/23 temazepam 15 mg capsule 15 mg PO BEDTIME PRN sleep 30 days 03/09/23 #30 caps lactulose 10 gram/15 mL oral 10 g (15 mL) PO BEDTIME PRN 05/10/23 solution constipation 90 days #237 mL solifenacin 5 mg tablet (Vesicare) 5 mg PO DAILY 30 days #30 tabs 05/18/23 doxycycline hyclate 100 mg capsule 100 mg PO BID 14 days #28 caps 06/10/23 Allergies Allergy/AdvReac Type Severity Reaction Status Date / Time No Known Allergies Allergy Verified 05/17/23 13:06 Review of Systems 2 Review of Systems: All other systems are reviewed and are negative Constitutional: Reports as per HPI and Reports no additional constitutional complaints Eyes: Reports as per HPI and Reports no additional eye complaints Reports system reviewed and no additional complaints, except as documented Cardiovascular: Reports as per HPI and Reports no additional cardiovascular complaints Respiratory: Reports as per HPI and Reports no additional respiratory complaints Gastrointestinal: Reports as per HPI and Reports no additional gastrointestinal complaints Genitourinary: Reports no additional female genitourinary complaints Musculoskeletal: Reports no additional musculoskeletal complaints Skin/Breast: Reports system reviewed and no additional complaints, except as docu Psychiatric: Reports no additional psychiatric complaints Endocrine: Reports no additional endocrine complaints Hematologic/Lymphatic: Reports no additional hematologic/lymphatic complaints Allergic/Immunologic: Reports no additional allergic/immunologic complaints Reports system reviewed and no additional complaints, except as documented and Reports Abnormal speech present [facility] Past Medical History Medical History External hemorrhoids Epidermal inclusion cyst White coat syndrome with high blood pressure but without hypertension Dry eyes Hyponatremia Hypercalcemia Diarrhea Renal calculi Constipation by delayed colonic transit GERD (gastroesophageal reflux disease) UTI (urinary tract infection) Villous adenoma of colon Insomnia Raynauds disease Anxiety Surgical History History of bronchoscopy History of tonsillectomy Family History Family History Father Medical history unknown Mother Dementia Alzheimers disease Mental health disorder Brother Leukemia Sister Medical history unknown Social History Social History Household Members: None Housing: Other Housing Other:: assisted living. Alcohol intake: never Patient Tobacco Use Status: Former Tobacco user Tobacco use type: Cigarette Smoked in Last 30 Days: No e-Cigarette/Vaping Use: Never Used Second Hand Smoke Exposure: No Use of substances other than those prescribed or required for medical reasons: No Advance Directives: Yes Advance Directives on File: Yes Advance Directives Date on File: 11/23/22 service: No Current occupational status: retired Cognitive needs: No Hearing needs: No Vision needs: Yes Physical Exam ED Vital Signs: Vital Signs - 24 hr 07/16/23 02:54 07/16/23 03:58 07/16/23 05:26 Temperature 97.6 F 97.6 F 97.9 F Pulse Rate 72 74 82 Respiratory Rate 12 12 16 Blood Pressure 109/61 129/71 142/74 H Pulse Oximetry 98 98 97 Oxygen Delivery Method Room Air Room Air Room Air 07/16/23 07:14 07/16/23 07:15 07/16/23 07:19 Temperature Pulse Rate 71 82 83 Respiratory Rate Blood Pressure 132/76 131/83 129/88 Pulse Oximetry Oxygen Delivery Method 07/16/23 07:21 Temperature 98.0 F Pulse Rate 76 Respiratory Rate 16 Blood Pressure 139/80 Pulse Oximetry 97 Oxygen Delivery Method Room Air BMI result Body Mass Index 16.6 Vital signs have been reviewed and appear to be correct. Blood pressure elevated. Heart rate normal. Respiratory rate normal. Temperature normal. Oxygen saturation normal. Appearance: Alert. Oriented X3. No acute distress. Head: Normal external exam. Normocephalic. Atraumatic. No Huertas signs noted. No raccoon eyes noted Eyes: PERRLA. EOMI. Conjunctiva and sclera normal. Eyelids normal. ENT: TM's Normal. Pharynx normal. Uvula midline. Moist mucous membranes. No trismus noted. No drooling noted. No muffled voice noted. Neck: Normal inspection. Neck supple. FROM. No adenopathy. Thyroid Normal. No meningeal signs. No neck mass noted. CVS: Normal heart rate and rhythm. Heart sound normal. No murmurs noted. Pulses normal throughout. Respiratory: No respiratory distress. Painless inspiration. Breath sounds normal. No wheezes/rales/rhonchi noted. Chest nontender. No accessory muscle usage noted or decreased air movement noted. Abdomen: Soft and nontender. Bowel sounds normal in all 4 quadrants. No distention noted. No organomegaly noted. No visible injury noted. Back: No CVA tenderness. Full range of motion noted. Skin: Skin warm and dry. Normal skin color. Normal skin turgor. No rashes/lesions/lacerations noted. Extremities: No lower extremity edema. Extremities exhibit normal range of motion. Extremities nontender. Neuro: Oriented X 3. Cranial nerve exam: II-XII are grossly intact No motor deficit. No sensory deficit. Reflexes normal. Course Reevaluation(s) Reevaluation #1: A 72-year-old female came in after felt dizzy, lightheadedness, and fall after she was trying to get out bed, patient declined any chest pain, normal troponin, EKG is concern of T-wave inversion in lateral leads which is new changes on her EKG. Will admit the patient for near syncope monitoring. Hypokalemia will replete IV/p.o. Time: 05:07 Medications Administered Discontinued Medications Generic Name Dose Route Start Last Admin Trade Name Freq PRN Reason Stop Dose Admin Sodium Chloride 1,000 mls @ 999 mls/hr 07/16/23 03:27 07/16/23 06:39 Ns IV 07/16/23 04:27 Infused .Q1H1M ONE Infusion Potassium Chloride 10 meq in 100 mls @ 100 mls/hr 07/16/23 04:26 07/16/23 06:39 Potassium Chloride/H20 IV 07/16/23 05:25 Infused ONCE ONE Infusion Potassium Chloride 40 meq 07/16/23 04:26 07/16/23 04:44 Potassium Chloride Packet 20 Meq Packet PO 07/16/23 04:27 40 meq ONCE ONE Administration Medical Decision Making Differential Diagnosis Differential Diagnoses: The differential diagnosis associated with the presentation includes (Near syncope, electrolyte abnormality, severe anemia, ACS, EKG changes, UTI, intracranial bleed, cervical spine injury, rib fracture, intra-abdominal injury.) Admission/Observation Consideration of admission/observation: Escalation of care including admission/observation considered Consult Healthcare Provider Management of the patient was discussed with: Hospitalist (Dr. Cohen) Lab Data MDM Lab Attestation statement: I reviewed the patient's lab results. 07/16/23 03:53 07/16/23 03:53 Labs: Lab Results 07/16/23 Range/Units 03:53 WBC 7.0 (4.8-10.8) X10*3/uL RBC 3.53 L (4.20-5.50) X10*6/uL Hgb 10.4 L (12.0-16.0) g/dl Hct 32.7 L (37.0-47.0) % MCV 92.6 (80.0-98.0) fL MCH 29.5 (27.0-33.0) pg MCHC 31.8 (31.0-35.0) g/dl RDW 13.9 (11.0-16.0) % Plt Count 326 (160-400) X10*3/uL MPV 9.0 L (9.4-12.3) fL Immature Gran % (Auto) 0.3 (0.0-0.4) % Neut % (Auto) 57.5 (45-73) % Lymph % (Auto) 30.1 (20-40) % [place] % (Auto) 10.4 (2-11) % Eos % (Auto) 1.0 (0-4) % Baso % (Auto) 0.7 (0-2) % Lymph # (Auto) 2.1 (1.2-4.9) X10*3/uL [place] # (Auto) 0.7 (0.1-1.2) X10*3/uL Eos # (Auto) 0.1 (0.0-0.4) X10*3/uL Baso # (Auto) 0.1 (0.0-0.2) X10*3/uL Abs Immat Gran (auto) 0.02 (0.00-0.03) X10*3/uL Absolute Neuts (auto) 4.0 (2.0-8.3) x10*3/uL Absolute Nucleated RBC 0.000 (0.0-0.012) X10*3/uL Nucleated RBC % (auto) 0.0 (0.0-0.2) /100WBC Sodium 139 (135-145) mmol/L Potassium 2.8 L* (3.3-5.1) mmol/L Chloride 109 H (96-108) mmol/L Carbon Dioxide 18 L (22-29) mmol/L Anion Gap 15 (12-20) BUN 13 (9-16) mg/dL Creatinine 0.69 (0.5-1.4) mg/dL Estim Creat Clear Calc 43.4 Estimated GFR > 60 Random Glucose 72 (60-115) mg/dL Calcium 9.5 D (8.4-10.2) mg/dL Total Bilirubin 0.3 (0.0-1.0) mg/dL Direct Bilirubin 0.1 (0.0-0.5) mg/dL AST 31 (5-31) U/L ALT 34 H (0-31) U/L Alkaline Phosphatase 133 H (39-117) U/L Troponin I High Sens 4.1 (<3.5-17.0) ng/L B-Natriuretic Peptide 90 (<100) pg/mL Total Protein 6.3 L (6.5-8.0) g/dL Albumin 3.4 L (3.5-5.0) g/dL Lipase 99 H (8-78) U/L Urine Color Yellow Urine Appearance Clear Urine pH 7.0 (5.0-9.0) Ur Specific [place] 1.010 (1.005-1.025) Urine Protein 30 (1+) H (Neg-Trace) mg/dL Urine Glucose (UA) Negative (Negative) mg/dL Urine Ketones Negative (Negative) mg/dL Urine Blood Large (3+) H (Negative) Urine Nitrite Negative (Negative) Ur Leukocyte Esterase Trace H (Negative) Urine RBC >20 H (0-2) /HPF Urine WBC 0-5 (0-5) /HPF Ur Squamous Epith Cells 0-2 (0-2) /HPF Urine Bacteria None Seen (None Seen) Hyaline Casts 0-2 (0-2) /LPF Independent Interpretation I performed an independent interpretation of an: CT Scan (Head/C- spine/chest/abdomen: T8 and T11 compression fractures. The T11 fracture was not present previously and may be acute. Scarring and/or subsegmental atelectasis at the left lung base associated with a minimal left pleural effusion. Bilateral renal calculi. Emphysema. 5 mm left lower lobe no) Radiology Impression Discussion of test interpretation with radiology: I have reviewed the radiologist's reading. Discharge Plan Discharge Clinical Impression: Near syncope, Acute hypokalemia, Acute electrocardiography changes Closed compression fracture of thoracic vertebra Qualifiers: Encounter type: initial encounter Qualified Code(s): S22.000A - Wedge compression fracture of unspecified thoracic vertebra, initial encounter for closed fracture Patient Disposition: Admitted As Inpatient
[2023-07-16] MEDS: 0.9 % Sodium Chloride 1,000 ML 999 ML IV (03:57)
--- NOTE | 2023-07-16 04:01 | PC.NURSE ---
Straight cath done. 250cc of clear yellow urine output. Pt tolerated well 20G IV line established on the left FA. Going to Ct-scan. Pt declines changing over to hospital attire.
[2023-07-16 04:02] LABS: Basophils Absolute Auto 0.1 X10*3/uL (0.0-0.2); Basophils Percent Auto 0.7 % (0-2); Eosinophils Absolute Auto 0.1 X10*3/uL (0.0-0.4); Hematocrit 32.7 % (37.0-47.0); Hemoglobin 10.4 g/dl (12.0-16.0); Imm Gran Abs Auto 0.02 X10*3/uL (0.00-0.03); Imm Gran Pct Auto 0.3 % (0.0-0.4); Lymphocytes Absolute Auto 2.1 X10*3/uL (1.2-4.9); Lymphocytes Percent Auto 30.1 % (20-40); MANUAL DIFF FLAG NO; Mean Corpuscular HGB Conc 31.8 g/dl (31.0-35.0); Mean Corpuscular Hemoglobin 29.5 pg (27.0-33.0); Mean Corpuscular Volume 92.6 fL (80.0-98.0); Monocytes Absolute Auto 0.7 X10*3/uL (0.1-1.2); Monocytes Percent Auto 10.4 % (2-11); Neutrophils Percent Auto 57.5 % (45-73); Platelet Count 326 X10*3/uL (160-400); Red Blood Count 3.53 X10*6/uL (4.20-5.50); Red Cell Distribution Width 13.9 % (11.0-16.0)
[2023-07-16 04:08] LABS: Appearance Urine Clear; Glucose Urine UA Negative (Negative); Leukocyte Esterase Urine Trace (Negative); Nitrite Urine Negative (Negative); UMIC TRIGGER UACC YES; Urine Blood Large (3+) (Negative); Urine Ketones Negative (Negative); Urine Protein 30 (1+) mg/dL (Neg-Trace)
[2023-07-16 04:10] LABS: Color Urine Yellow
[2023-07-16 04:11] LABS: Bacteria Urine None Seen (None Seen); Hyaline Casts Urine 0-2 /LPF (0-2); RBC Urine >20 /HPF (0-2); Squamous Epithelial Cell Urine 0-2 /HPF (0-2); WBC Urine 0-5 /HPF (0-5)
[2023-07-16 04:21] LABS: B Type Natriuretic Peptide 90 pg/mL (<100)
[2023-07-16 04:24] LABS: Alanine Aminotransferase 34 U/L (0-31); Albumin Level 3.4 g/dL (3.5-5.0); Alkaline Phosphatase 133 U/L (39-117); Anion Gap 15 (12-20); Aspartate Amino Transferase 31 U/L (5-31); Bilirubin Direct 0.1 mg/dL (0.0-0.5); Bilirubin Total 0.3 mg/dL (0.0-1.0); Blood Urea Nitrogen 13 mg/dL (9-16); Calcium 9.5 mg/dL (8.4-10.2); Carbon Dioxide 18 mmol/L (22-29); Chloride 109 mmol/L (96-108); Creatinine Clr Calc Pharmacy 43.4; Estimated Glomerular Filt Rate > 60; Glucose Random 72 mg/dL (60-115); Lipase 99 U/L (8-78); Potassium 2.8 mmol/L (3.3-5.1); Sodium 139 mmol/L (135-145); Total Protein 6.3 g/dL (6.5-8.0); Troponin-I High Sensitivity 4.1 ng/L (<3.5-17.0)
[2023-07-16] MEDS: Potassium Chloride/H20 10 MEQ/100 ML PIGGYBACK 100 MEQ IV (04:40)
[2023-07-16] MEDS: Potassium Chloride Packet 20 MEQ PACKET 40 MEQ PO (04:44)
--- NOTE | 2023-07-16 05:42 | PC.NURSE ---
16Fr urinary catheter inserted per Dr. An's verbal order. 400 cc of clear urine output. Pt tolerated well.
[2023-07-16 08:14] LABS: Troponin-I High Sensitivity 5.8 ng/L (<3.5-17.0)
--- NOTE | 2023-07-16 08:19 | PHA.MEDREC ---
Pharmacy Consult ? Medication Reconciliation Pharmacy has completed the medication reconciliation. Spoke to patient and confirmed medication list.
--- NOTE | 2023-07-16 09:02 | PM.IMHP ---
History of Present Illness Date of Service: 07/16/23 Chief Complaint: fall The patient is a 71 yo F with a PMH of moderate protein calorie malnutrition, stress-induced CMP with recovered EF, Raynaud's, GERD, and mood disorder who presented to [facility] ED on 07/16/23 after sustaining a fall. The patient reports that she had urinary retention and resultant incontinence which requires her to make multple trips to the bathroom over night. On the night prior to admission, the patient reported that while attempting to go to the bathroom for the second time in 2 hours, she felt dizzy/lightheaded and had a sensation of the room spinning which resulted in her falling. She denies any LOC. Denies any seizure type activity. Denies any chest pain / sob / palpitations. In the ED, the patient's work up showed mild metabolic acidosis with hypokalemia. Her imaging studies showed T8 and T11 compression fractures, T11 is new from the previous imaging (potentially new). Her orthostatic were negative, however, these were completed after she had received 1L of IVF bolus. Her EKG shows lateral and anterior T wave inversions. She was noted to have urinary retention and a mcdonald has been inserted. She will now be placed under obs for further management. Review of Systems Review of Systems: Negative except HPI/interval history. [facility] Medical History External hemorrhoids Epidermal inclusion cyst White coat syndrome with high blood pressure but without hypertension Dry eyes Hyponatremia Hypercalcemia Diarrhea Renal calculi Constipation by delayed colonic transit GERD (gastroesophageal reflux disease) UTI (urinary tract infection) Villous adenoma of colon Insomnia Raynauds disease Anxiety Family History Father Medical history unknown Mother Dementia Alzheimers disease Mental health disorder Brother Leukemia Sister Medical history unknown Surgical History History of bronchoscopy History of tonsillectomy Social History Household Members: None Housing: Other Housing Other:: assisted living. Alcohol intake: never Patient Tobacco Use Status: Former Tobacco user Tobacco use type: Cigarette Smoked in Last 30 Days: No e-Cigarette/Vaping Use: Never Used Second Hand Smoke Exposure: No Use of substances other than those prescribed or required for medical reasons: No Advance Directives: Yes Advance Directives on File: Yes Advance Directives Date on File: 11/23/22 service: No Current occupational status: retired Cognitive needs: No Hearing needs: No Vision needs: Yes Meds Allergies Allergy/AdvReac Type Severity Reaction Status Date / Time No Known Allergies Allergy Verified 05/17/23 13:06 Active Medications: Current Medications Acetaminophen (Acetaminophen 325 Mg Tablet) 650 mg PO Q6H PRN PRN Reason: Pain, Mild (Pain Scale 1-3) Atorvastatin Calcium (Atorvastatin Calcium 40 Mg Tablet) 40 mg PO BEDTIME DEEPALI Enoxaparin Sodium (Enoxaparin Sodium 40 Mg/0.4 Ml Syringe) 40 mg SUBCUT Q24H DEEPALI Famotidine (Famotidine 20 Mg Tablet) 20 mg PO BID DEEPALI Lorazepam (Lorazepam 1 Mg Tablet) 1 mg PO BID PRN PRN Reason: anxiety Metoprolol Succinate (Metoprolol Succinate Er 25 Mg Tab.Er.24h) 25 mg PO DAILY DEEPALI; Protocol Non-Formulary Medication (Pantoprazole) 40 mg PO DAILY@0630 DEEPALI Quetiapine Fumarate (Quetiapine Fumarate 50 Mg Tablet) 50 mg PO BID DEEPALI Sodium Chloride (0.9 % Sodium Chloride Flush 3 Ml Syringe) 3 ml IVFLUSH QSHIFT DEEPALI Temazepam (Temazepam 15 Mg Capsule) 15 mg PO BEDTIME PRN PRN Reason: sleep Home Medications Medication Instructions Recorded Confirmed Last Taken Type pantoprazole 40 mg tablet,delayed 40 mg PO DAILY@0630 07/16/23 07/16/23 07/15/23 History release Physical Exam Vital Signs and Narrative: Vital Signs: Last Vital Signs Temp 98.0 F 07/16/23 07:21 Pulse 76 07/16/23 07:21 Resp 16 07/16/23 07:21 BP 139/80 07/16/23 07:21 Pulse Ox 97 07/16/23 07:21 O2 Del Method Room Air 07/16/23 07:21 BMI result Body Mass Index 16.6 Const: Other: Constitutional - Awake and Alert, No apparent distress, frail in appearance Eyes - PERRLA, EOMI Cardiovascular - S1S2, RRR, No edema Respiratory - Normal lung expansion, Normal respiratory effort, No respiratory distress, CTA bilaterally Gastrointestinal - NT / ND; +BS; No rebound or guarding - No CVA tenderness Extremities - no calf tenderness bilaterally, no swelling Musculoskeletal - Normal inspection, normal ROM; no spinal tenderness Skin - Warm/Dry Neurological - Alert & oriented x3, No focal deficit Psychological - Appropriate affect Results Labs 07/16/23 03:53 07/16/23 03:53 Labs: Laboratory Results - last 24 hr 07/16/23 03:53 MCV 92.6 MCH 29.5 MCHC 31.8 RDW 13.9 Plt Count 326 MPV 9.0 L Immature Gran % (Auto) 0.3 Neut % (Auto) 57.5 Lymph % (Auto) 30.1 [place] % (Auto) 10.4 Eos % (Auto) 1.0 Baso % (Auto) 0.7 Lymph # (Auto) 2.1 [place] # (Auto) 0.7 Eos # (Auto) 0.1 Baso # (Auto) 0.1 Abs Immat Gran (auto) 0.02 Absolute Neuts (auto) 4.0 Absolute Nucleated RBC 0.000 Nucleated RBC % (auto) 0.0 Anion Gap 15 Estim Creat Clear Calc 43.4 Estimated GFR > 60 Random Glucose 72 Calcium 9.5 D Total Bilirubin 0.3 Direct Bilirubin 0.1 AST 31 ALT 34 H Alkaline Phosphatase 133 H B-Natriuretic Peptide 90 Total Protein 6.3 L Albumin 3.4 L Lipase 99 H Urine Color Yellow Urine Appearance Clear Urine pH 7.0 Ur Specific [place] 1.010 Urine Protein 30 (1+) H Urine Glucose (UA) Negative Urine Ketones Negative Urine Blood Large (3+) H Urine Nitrite Negative Ur Leukocyte Esterase Trace H Urine RBC >20 H Urine WBC 0-5 Ur Squamous Epith Cells 0-2 Urine Bacteria None Seen Hyaline Casts 0-2 Imaging Radiologist's Impressions: Impressions Cervical Spine CT 07/16/23 04:47 IMPRESSION: 1. No acute intracranial process seen. 2. Moderate cerebral volume loss with chronic small vessel ischemic changes. 3. There is no acute fracture, dislocation or subluxation cervical spine. There are degenerative disc changes and facet joint arthropathy as described above. Head CT 07/16/23 04:47 IMPRESSION: 1. No acute intracranial process seen. 2. Moderate cerebral volume loss with chronic small vessel ischemic changes. 3. There is no acute fracture, dislocation or subluxation cervical spine. There are degenerative disc changes and facet joint arthropathy as described above. Abdomen/Pelvis CT 07/16/23 04:48 IMPRESSION: T8 and T11 compression fractures. The T11 fracture was not present previously and may be acute. Scarring and/or subsegmental atelectasis at the left lung base associated with a minimal left pleural effusion. Bilateral renal calculi. Emphysema. 5 mm left lower lobe nodule. Per the 2017 revised Fleischner Society guidelines, no routine follow up is recommended for solid nodules < 6mm in the middle/lower lobes. Fleischner guidelines were followed. Chest CT 07/16/23 04:48 IMPRESSION: T8 and T11 compression fractures. The T11 fracture was not present previously and may be acute. Scarring and/or subsegmental atelectasis at the left lung base associated with a minimal left pleural effusion. Bilateral renal calculi. Emphysema. 5 mm left lower lobe nodule. Per the 2017 revised Fleischner Society guidelines, no routine follow up is recommended for solid nodules < 6mm in the middle/lower lobes. Fleischner guidelines were followed. Assessment and Plan (1) Acute hypokalemia: Status: Acute (2) Acute electrocardiography changes: Status: Acute Plan 72 yo F with a PMH of moderate protein calorie malnutrition, stress-induced CMP with recovered EF, Raynaud's, GERD, and mood disorder who presented to [facility] ED on 07/16/23 after sustaining a fall. She is found to have EKG changes, low K/met. acidosis and possible acute compression fx. She will be admitted for further mgmt. 1. Fall Question related to orthostatic hypotension (vitals are negative, but she had already received IVF) Will get PT eval supportive care 2. HypoK repleted in the ED with 40 po and 10 IV; will repeat now 3. T-wave inversions No chest pain and HS trop-I flat possibly related to electrolytes will repeat after K normal; check Mg monitor on telemonitor 4. Multiple compression fractures (T8/T11) T8 is old, T11 new (not present on last imaging) -- however, she does not appear to have uncontrolled pain / tenderness on exam monitor outpatient f/u 5. Mood continue baseline meds Full Code DVT pptx, Lovenox Quality Stroke Does the patient have a stroke diagnosis?: No VTE Prior VTE?: No VTE Risk Level:: Medical - moderate - high VTE Device Contraindication: N/A - Device Ordered VTE Drug Contraindication: N/A - Med Ordered
[2023-07-16] MEDS: Omeprazole 20 MG CAPSULE.DR PO (09:23)
[2023-07-16] MEDS: Metoprolol Succinate ER 25 MG TAB.ER.24H PO (10:05)
[2023-07-16] MEDS: LORazepam 1 MG TABLET PO ×2 (10:06→21:54)
--- NOTE | 2023-07-16 10:10 | PC.NURSE ---
Pt utilizing call [facility] multiple times. Wanted to eat before taking meds, then ringing in stating she needs to take the meds while she eats. Patient very particular, impatient with nursing staff when needs aren't immediately met. Pt refusing tylenol, I don't take that, I only take ibuprofen. Med list obtained from family member.
[2023-07-16 10:15] LABS: Anion Gap 10 (12-20); Blood Urea Nitrogen 11 mg/dL (9-16); Calcium 9.2 mg/dL (8.4-10.2); Carbon Dioxide 24 mmol/L (22-29); Chloride 111 mmol/L (96-108); Creatinine Clr Calc Pharmacy 44.7; Estimated Glomerular Filt Rate > 60; Glucose Random 133 mg/dL (60-115); Magnesium 2.1 mg/dL (1.6-2.6); Potassium 3.3 mmol/L (3.3-5.1); Sodium 142 mmol/L (135-145)
--- NOTE | 2023-07-16 11:47 | PC.NURSE ---
Patient states Oh my god, I called and I complained to administration and I told them I hadn't seen my nurse but I have seen you! I'm so sorry! Pt expressed frustration that everytime I come to [place], it's always something. I always have problems when I come here. Dr. An said I couldn't eat until my CT Scans were back, then Dr. Zafar said I could eat at 7am and said he ordered my tray but nothing came! Pt made aware diet order was placed by at 8:51am, the kitchen wouldn't of known to bring patient a tray unless staff called as order was placed late. Pt's family member offered to go get pt breakfast at pt's request. Pt made aware diet order is in for her lunch, that she will receive a tray. Pt concerned that mcdonald bag is full and needed to be emptied, pt shown mcdonald catheter with 100cc in it - made aware bag is not full. Pt reports call [facility] isn't working and is awaiting maintence, call [facility]dard tested - light goes on and alert goes to call [employer] system. VS updated.
--- NOTE | 2023-07-16 13:26 | PC.NURSE ---
pt requesting ice water, when given a pitcher of ice water, pt c/o that her ice water is too cold. requesting less cold ice water.
[2023-07-16 21:51] LABS: Anion Gap 10 (12-20); Blood Urea Nitrogen 16 mg/dL (9-16); Calcium 9.1 mg/dL (8.4-10.2); Carbon Dioxide 22 mmol/L (22-29); Chloride 111 mmol/L (96-108); Creatinine Clr Calc Pharmacy 38.4; Estimated Glomerular Filt Rate > 60; Glucose Random 100 mg/dL (60-115); Potassium 3.5 mmol/L (3.3-5.1); Sodium 139 mmol/L (135-145)
[2023-07-16] MEDS: Famotidine 20 MG TABLET PO (21:53)
[2023-07-16] MEDS: Ketorolac Tromethamine 30 MG/ML VIAL IVPUSH (21:53)
[2023-07-16] MEDS: Atorvastatin Calcium 40 MG TABLET PO (21:54)
[2023-07-16] MEDS: Temazepam 15 MG CAPSULE PO (21:54)
[2023-07-16] MEDS: QUEtiapine Fumarate 50 MG TABLET PO (21:54)
[2023-07-16] MEDS: 0.9 % Sodium Chloride Flush 3 ML SYRINGE IVFLUSH (21:54)
[2023-07-17] VITALS (14 sets, daily range): BP systolic 78–116; BP diastolic 42–64; PULSE 74–95; RESP 14–20; TEMP 36.4–37.7; O2SAT 93–98
--- NOTE | 2023-07-17 | ECG_ITS ---
Test Reason : ekg abnormal Blood Pressure : / mmHG Vent. Rate : 072 BPM Atrial Rate : 072 BPM P-R Int : 126 ms QRS Dur : 090 ms QT Int : 420 ms P-R-T Axes : 068 024 047 degrees QTc Int : 459 ms Normal sinus rhythm Nonspecific ST and T wave abnormality Abnormal ECG When compared with ECG of 16-JUL-2023 03:49, No significant changes seen Referred By: Martha Onofre Electronically Signed By:EKTA PA
[2023-07-17] MEDS: oxyCODONE HCl Immed Release 5 MG TABLET PO (00:56)
[2023-07-17] MEDS: Omeprazole 20 MG CAPSULE.DR PO (05:48)
[2023-07-17 06:48] LABS: Estimated Average Glucose 111 mg/dL; Hemoglobin A1c % 5.5 % (<6.0)
[2023-07-17 06:58] LABS: Anion Gap 9 (12-20); Blood Urea Nitrogen 16 mg/dL (9-16); Calcium 8.6 mg/dL (8.4-10.2); Carbon Dioxide 20 mmol/L (22-29); Chloride 113 mmol/L (96-108); Creatinine Clr Calc Pharmacy 42.2; Estimated Glomerular Filt Rate > 60; Glucose Random 83 mg/dL (60-115); Potassium 3.7 mmol/L (3.3-5.1); Sodium 138 mmol/L (135-145)
[2023-07-17] MEDS: Famotidine 20 MG TABLET PO ×2 (08:20→21:20)
[2023-07-17] MEDS: Potassium Chloride ER 20 MEQ TAB.ER.PRT PO (08:20)
[2023-07-17] MEDS: 0.9 % Sodium Chloride Flush 3 ML SYRINGE IVFLUSH ×3 (08:20→21:21)
[2023-07-17] MEDS: Metoprolol Succinate ER 25 MG TAB.ER.24H PO (08:20)
[2023-07-17] MEDS: Enoxaparin Sodium 40 MG/0.4 ML SYRINGE SUBCUT (08:20)
--- NOTE | 2023-07-17 13:11 | P.PNIM_ITS ---
Subjective Subjective Date of Service: 07/18/23 Interval History: [facility] at [facility] bp Review of Systems [facility] denies any chest pain or sob Physical Exam 2 Vital Signs: Vital Signs: Last Vital Signs Temp 99.1 F 07/17/23 11:19 Pulse 83 07/17/23 11:19 Resp 20 07/17/23 11:19 BP 82/42 L 07/17/23 11:19 Pulse Ox 96 07/17/23 11:19 O2 Del Method Room Air 07/17/23 11:19 BMI result Body Mass Index 16.6 Appearance: Alert.? Oriented X3.? cvs: [id number], [id number] . res: clear to auscultation ,no rhonchii or wheezing abd: no rebound or guarding ,nt, bs present. ext pulses present , no cyanosis . neuro: axo3 , nonfocal. Objective Data Active Medications Acetaminophen (Acetaminophen 325 Mg Tablet) 650 mg PO Q6H PRN PRN Reason: Pain, Mild (Pain Scale 1-3) Atorvastatin Calcium (Atorvastatin Calcium 40 Mg Tablet) 40 mg PO BEDTIME [facility] Last Admin: 07/16/23 21:54 Dose: 40 mg Documented By: MARGOT Enoxaparin Sodium (Enoxaparin Sodium 40 Mg/0.4 Ml Syringe) 40 mg SUBCUT Q24H [facility] Last Admin: 07/17/23 08:20 Dose: 40 mg Documented By: DIANE Famotidine (Famotidine 20 Mg Tablet) 20 mg PO BID [facility] Last Admin: 07/17/23 08:20 Dose: 20 mg Documented By: DIANE Sodium Chloride (Ns) 1,000 mls @ 100 mls/hr IVCONT .Q10H [facility] Ibuprofen (Ibuprofen 200 Mg Tablet) 200 mg PO Q6H PRN PRN Reason: Pain, Severe (Pain Scale 7-10) Lorazepam (Lorazepam 1 Mg Tablet) 1 mg PO BID PRN PRN Reason: anxiety Last Admin: 07/16/23 21:54 Dose: 1 mg Documented By: MARGOT Omeprazole (Omeprazole 20 Mg Capsule.) 20 mg PO DAILY@0630 [facility] Last Admin: 07/17/23 05:48 Dose: 20 mg Documented By: MARGOT Oxycodone HCl (Oxycodone Hcl Immed Release 5 Mg Tablet) 5 mg PO Q6H PRN PRN Reason: Pain, Severe (Pain Scale 7-10) Last Admin: 07/17/23 00:56 Dose: 5 mg Documented By: MARGOT Quetiapine Fumarate (Quetiapine Fumarate 50 Mg Tablet) 50 mg PO BEDTIME [facility] Last Admin: 07/16/23 21:54 Dose: 50 mg Documented By: MARGOT Sodium Chloride (0.9 % Sodium Chloride Flush 3 Ml Syringe) 3 ml IVFLUSH QSHIFT [facility] Last Admin: 07/17/23 08:20 Dose: 3 ml Documented By: DIANE Tamsulosin HCl (Tamsulosin Hcl 0.4 Mg Capsule) 0.4 mg PO BEDTIME [facility] Temazepam (Temazepam 15 Mg Capsule) 15 mg PO BEDTIME PRN PRN Reason: sleep Last Admin: 07/16/23 21:54 Dose: 15 mg Documented By: MARGOT Labs 07/16/23 03:53 07/17/23 05:47 Labs: Laboratory Results - last 24 hr 07/16/23 07/17/23 21:26 05:47 Anion Gap 10 L 9 L Estim Creat Clear Calc 38.4 42.2 Estimated GFR > 60 > 60 Random Glucose 100 83 Estimat Average Glucose 111 Hemoglobin A1c % 5.5 Calcium 9.1 8.6 Assessment and Plan (1) Acute hypokalemia: Status: Acute (2) Acute electrocardiography changes: Status: Acute Plan 72 yo F with a PMH of moderate protein calorie malnutrition, stress-induced CMP with recovered EF, Raynaud's, GERD, and mood disorder who presented to [facility] on 07/16/23 after sustaining a fall. She is found to have EKG changes, low K/met. acidosis and possible acute compression fx. She will be admitted for further mgmt. boderline low bp-? thought to be orthostasis vs dehydration need iv hydration and bp monitering Fall still has boderline bp,genenalised weak-Question related to orthostatic hypotension (vitals are negative, but she had already received IVF) will repeat orthostasis will add rosa stockings Will get PT eval supportive care HypoK repleted and resolved. T-wave inversions No chest pain and HS trop-I flat possibly related to electrolytes ekg repeated -seemsst chnages improved ,monitor on telemonitor Multiple compression fractures (T8/T11) T8 is old, T11 new (not present on last imaging) -- however, she does not appear to have uncontrolled pain / tenderness on exam monitor outpatient f/u Mood continue baseline meds urinary retention: has mcdonald added flomax DVT pptx, Lovenox ongoing hospitlisation might benefit from 48-72 hrs monitering : boderline low bp- -need hydraion iv due to boderline bp ,moniter orthostasis ,Pt for fall, lives alone and no family available -unreliable for follow up ,PT eval also pending Quality Stroke Does the patient have a stroke diagnosis?: No VTE Prior VTE?: No VTE Risk Level:: Medical - moderate - high VTE Device Contraindication: N/A - Device Ordered VTE Drug Contraindication: N/A - Med Ordered
--- NOTE | 2023-07-17 15:45 | MHC.CM.PN ---
VALENCIA 07/17. Pt self-care, lives alone at home. Pt has [employer] 2 hrs/day on //Wed, and pt uses a rollater walker. HCP on file and verified. PT recommended [facility] for pt. Referrals placed at the 3 local acute rehabs, discussed with pt and [facility] is her first choice. PCP: Dr. Aniyah Mcgregor
[2023-07-17] MEDS: Lidocaine 4 % Patch ADH..PATCH 1 PATCH TRANSDERMA (16:10)
[2023-07-17] MEDS: Tamsulosin HCL 0.4 MG CAPSULE PO (21:20)
[2023-07-17] MEDS: Atorvastatin Calcium 40 MG TABLET PO (21:20)
[2023-07-17] MEDS: QUEtiapine Fumarate 50 MG TABLET PO (21:20)
[2023-07-17] MEDS: LORazepam 1 MG TABLET PO (21:20)
[2023-07-17] MEDS: Temazepam 15 MG CAPSULE PO (21:20)
[2023-07-17] MEDS: 0.9 % Sodium Chloride 1,000 ML 999 ML IV (21:56)
[2023-07-18] VITALS (7 sets, daily range): BP systolic 92–128; BP diastolic 54–73; PULSE 79–89; RESP 16–20; TEMP 36.6–37.4; O2SAT 93–97
[2023-07-18] MEDS: 0.9 % Sodium Chloride 1,000 ML 999 ML IV (00:15)
--- NOTE | 2023-07-18 00:58 | PM.EVENT ---
Event Note Date of Service: 07/18/23 Event Note: 11:58 PM - Contacted to notify patient's BP dropped to 78/44. Other VS signs are normal. I did evaluate patient. She is very sedated and drowsy (oral mucosa dryness) both, able to interact and have a conversation. Cardiopulmonary exam is unremarkable. She did get 15 mg PO of Temazepam at bedtime as well as 1 mg of Ativan PO plus Seroquel 50 mg PO. She also has been taking oxycodone for pain control as she has been refusing Tylenol and NSAIDs for pain control, and requesting oxycodone specifically (last dose was about 24 hours ago). According to the patient she takes these medications at home. She received already 1 L of normal saline around 9:30 AM. At that time her blood pressure was 88/54. I am concerned that the patient sustaining a fall secondary to over-sedation due to these medications. I will discontinue her Seroquel for now and decrease the Ativan to 0.25 mg twice daily as needed. I am unable to discontinue the benzodiazepines or give her flumazenil as she has been taking these medications chronically and high-risk to develop seizures. Patient's hypotension is likely secondary to over-sedation and and not to sepsis/infectious process. I discussed with the patient my concerns about her taking multiple sedatives because this could cause respiratory depression and . In addition, she is at high-risk for traumatic falls. Time Spent With Patient Time: Total time managing care of this patient today ____ minutes.
--- NOTE | 2023-07-18 03:14 | PC.NURSE ---
Assumed care of patient 18:45. At 21:26 patients had a blood pressure reading of 88/54 manually. MD notified, telephone order placed for 1L NS bolused. Bolus given. At 23:55 patient blood pressure taken, 78/44, MD notifed and came to bedside. 1L NS bolus ordered and administered. Patient alert and oriented x4, drowsy but easily arousable by voice. Blood pressure retaken at 00:20, 92/54. Blood pressure retaken at 02:00 100/54. Blood pressure retaken at 03:20, 114/61. Patient still alert and oriented x4, easily arousable to voice but still drowsy. Will continue to monitor closely.
[2023-07-18] MEDS: Omeprazole 20 MG CAPSULE.DR PO (06:33)
--- NOTE | 2023-07-18 07:20 | PC.NURSE ---
Patient at 05:50 07/18/2023 told this nurse that they have taken their Ativan 1mg PO, Temazepam 50mg PO and seroquel 50mg PO at 18:00 yesterday. Patient alert and oriented x4 and was very apologetic. MD notified and nursing pst supervisor notified. Medications brought to pharmacy.
[2023-07-18] MEDS: LORazepam 0.5 MG TABLET 0.25 MG PO (09:11)
[2023-07-18] MEDS: Famotidine 20 MG TABLET PO ×2 (09:12→20:14)
[2023-07-18] MEDS: 0.9 % Sodium Chloride Flush 3 ML SYRINGE IVFLUSH ×3 (09:12→20:14)
--- NOTE | 2023-07-18 13:30 | P.PNIM_ITS ---
Subjective Subjective Date of Service: 07/18/23 Interval History: boderline bp no new c/o Review of Systems last night events noted . her bp drop /? possible use of homes meds in addition(please see event note of night physician note) given fluids and psych med s adjusted Physical Exam 2 Vital Signs: Vital Signs: Last Vital Signs Temp 99.3 F 07/18/23 12:00 Pulse 89 07/18/23 12:00 Resp 18 07/18/23 12:00 BP 95/73 07/18/23 12:00 Pulse Ox 97 07/18/23 12:00 O2 Del Method Room Air 07/18/23 12:00 BMI result Body Mass Index 16.6 Appearance: Alert.? Oriented X3.? cvs: [id number], [id number] . res: clear to auscultation ,no rhonchii or wheezing abd: no rebound or guarding ,nt, bs present. ext pulses present , no cyanosis . neuro: axo3 , nonfocal. Objective Data Active Medications Acetaminophen (Acetaminophen 325 Mg Tablet) 975 mg PO Q6H PRN PRN Reason: Pain, Moderate(Pain Scale 4-6) Atorvastatin Calcium (Atorvastatin Calcium 40 Mg Tablet) 40 mg PO BEDTIME [facility] Last Admin: 07/17/23 21:20 Dose: 40 mg Documented By: ZAYNAB Enoxaparin Sodium (Enoxaparin Sodium 40 Mg/0.4 Ml Syringe) 40 mg SUBCUT Q24H [facility] Last Admin: 07/17/23 08:20 Dose: 40 mg Documented By: DIANE Famotidine (Famotidine 20 Mg Tablet) 20 mg PO BID [facility] Last Admin: 07/18/23 09:12 Dose: 20 mg Documented By: PATRICK Ibuprofen (Ibuprofen 200 Mg Tablet) 200 mg PO Q6H PRN PRN Reason: Pain, Severe (Pain Scale 7-10) Lidocaine (Lidocaine 4 % Patch Adh..Patch) 1 patch TRANSDERMA DAILY [facility]; Protocol Last Admin: 07/18/23 09:12 Dose: Not Given Documented By: PATRICK Non-Admin Reason: Patient Refused Lorazepam (Lorazepam 0.5 Mg Tablet) 0.25 mg PO BID PRN PRN Reason: anxiety Last Admin: 07/18/23 09:11 Dose: 0.25 mg Documented By: PATRICK Omeprazole (Omeprazole 20 Mg Capsule.) 20 mg PO DAILY@0630 [facility] Last Admin: 07/18/23 06:33 Dose: 20 mg Documented By: SHRUTHI Quetiapine Fumarate (Quetiapine Fumarate 50 Mg Tablet) 50 mg PO BEDTIME [facility] Last Admin: 07/17/23 21:20 Dose: 50 mg Documented By: ZAYNAB Sodium Chloride (0.9 % Sodium Chloride Flush 3 Ml Syringe) 3 ml IVFLUSH QSHIFT [facility] Last Admin: 07/18/23 09:12 Dose: 3 ml Documented By: PATRICK Tamsulosin HCl (Tamsulosin Hcl 0.4 Mg Capsule) 0.4 mg PO BEDTIME [facility] Last Admin: 07/17/23 21:20 Dose: 0.4 mg Documented By: ZAYNAB Temazepam (Temazepam 15 Mg Capsule) 15 mg PO BEDTIME PRN PRN Reason: sleep Last Admin: 07/17/23 21:20 Dose: 15 mg Documented By: ZAYNAB Labs 07/16/23 03:53 07/17/23 05:47 Assessment and Plan (1) Acute hypokalemia: Status: Acute (2) Acute electrocardiography changes: Status: Acute Plan 72 yo F with a PMH of moderate protein calorie malnutrition, stress-induced CMP with recovered EF, Raynaud's, GERD, and mood disorder who presented to [facility] on 07/16/23 after sustaining a fall. She is found to have EKG changes, low K/met. acidosis and possible acute compression fx. She will be admitted for further mgmt. boderline low bp-? thought to be orthostasis vs dehydration need iv hydration and bp monitering last night events noted -psych meds adjsuted ,avoid oxycodone . psych eval -elf-harm and/psych medication adjustment( inital presentation dizziness might be related to psych meds). if agaitation or new beahviour chnages might need sitter. Fall still has boderline bp,genenalised weak-Question related to orthostatic hypotension (vitals are negative, but she had already received IVF) currently no other symptoms supportive care-tylenol and nsaids HypoK repleted and resolved. T-wave inversions No chest pain and HS trop-I flat possibly related to electrolytes ekg repeated -seemsst chnages improved ,monitor on telemonitor Multiple compression fractures (T8/T11) T8 is old, T11 new (not present on last imaging) -- however, she does not appear to have uncontrolled pain / tenderness on exam monitor outpatient f/u Mood continue baseline meds urinary retention: has mcdonald added flomax DVT pptx, Lovenox ongoing hospitlisation-need rehab eval ,also psych eval for concern for self- harm and/psych medication adjustment( inital presentation dizziness might be related to psych meds). Quality Stroke Does the patient have a stroke diagnosis?: No VTE Prior VTE?: No VTE Risk Level:: Medical - moderate - high VTE Device Contraindication: N/A - Device Ordered VTE Drug Contraindication: N/A - Med Ordered
--- NOTE | 2023-07-18 14:30 | MHC.CM.PN ---
Pt changed from obs to inpatient, IMM given 07/18. OT eval pending. Goal remains for pt to D/C to [facility]. CM will continue to follow.
--- NOTE | 2023-07-18 16:37 | PM.PSYCN ---
History of Present Illness Date of Service: 07/18/2023 Chief Complaint: ?Self-Harm, ?Drug seeking behavior Requesting physician: Silvio Ferris Sources of Information: patient interviewed and chart reviewed HPI Narrative: 72 yo female, admitted 07/16/23 with moderate protein calorie malnutrition, stress induced cmp with EF recovery, raynauds, GERD, mood disorder, urinary retention/incontinence s/p fall due to vertigo, metabolic acidosis, hypokalemia, T8, T11(new) compression fractures. Team reports, per event note, pt let her RN know at 553am that her HCP brought in Lorazepam 1 mg, Temazepam 50 mg and Seroquel 50 mg which she took at ~6pm 07/17/23 and then took them again when given by nursing at on 07/17/23. Team questions self harming behaviors and/or drug seeking behaviors. Met with pt who is apologetic and reports being embarrassed by this incident. Reports these are standing medications, given by PCP Ning and Darren Mcgregor for several years which she has never abused, overtaken, or taken for the purpose of self harm. She discussed briefly the stress she is feeling from her fall and resulting admission. She states she has asked her HCP to come in to take her medicines home and she will not make this error again (she was unclear as to the policy to have the hospital be the only enterprise systems administrator of medicine, but reports understanding since team has explained this). She expresses remorse, denies SI or substance use history and declines psychiatric referral. Past Psychiatric History: Trials: Lorazepam, Seroquel, Temazepam Lexaprshelbi 2022- Edmundo Mireles prescribing Medical Evaluation Reviewed: Yes [facility] Medical History External hemorrhoids Epidermal inclusion cyst White coat syndrome with high blood pressure but without hypertension Dry eyes Hyponatremia Hypercalcemia Diarrhea Renal calculi Constipation by delayed colonic transit GERD (gastroesophageal reflux disease) UTI (urinary tract infection) Villous adenoma of colon Insomnia Raynauds disease Anxiety Surgical History History of bronchoscopy History of tonsillectomy Diagnostics Vital Signs (24Hr): Vital Signs - 24 hr 07/17/23 19:22 07/17/23 21:26 07/17/23 22:54 Temperature 98.2 F 97.6 F Pulse Rate 80 74 Respiratory Rate 20 20 Blood Pressure 91/42 L 88/54 L 85/49 L Pulse Oximetry 93 94 Oxygen Delivery Method Room Air Room Air 07/17/23 23:55 07/18/23 00:20 07/18/23 02:00 Temperature Pulse Rate Respiratory Rate Blood Pressure 78/44 L 92/54 L 100/54 L Pulse Oximetry 93 Oxygen Delivery Method Room Air 07/18/23 03:17 07/18/23 08:00 07/18/23 12:00 Temperature 98.3 F 97.9 F 99.3 F Pulse Rate 79 87 89 Respiratory Rate 18 16 18 Blood Pressure 114/61 97/63 95/73 Pulse Oximetry 94 96 97 Oxygen Delivery Method Nasal Cannula Room Air Room Air 07/18/23 15:31 Temperature 98.5 F Pulse Rate 88 Respiratory Rate 20 Blood Pressure 124/60 Pulse Oximetry 95 Oxygen Delivery Method Room Air BMI result Body Mass Index 16.6 Labs 07/16/23 03:53 07/17/23 05:47 Labs: Laboratory Results - last 48 hr 07/16/23 07/17/23 21:26 05:47 Sodium 139 138 Potassium 3.5 3.7 Chloride 111 H 113 H Carbon Dioxide 22 20 L Anion Gap 10 L 9 L BUN 16 16 Creatinine 0.78 0.71 Estim Creat Clear Calc 38.4 42.2 Estimated GFR > 60 > 60 Random Glucose 100 83 Estimat Average Glucose 111 Hemoglobin A1c % 5.5 Calcium 9.1 8.6 Imaging Radiology Impressions: ITS Impressions Cervical Spine CT 07/16/23 04:47 IMPRESSION: 1. No acute intracranial process seen. 2. Moderate cerebral volume loss with chronic small vessel ischemic changes. 3. There is no acute fracture, dislocation or subluxation cervical spine. There are degenerative disc changes and facet joint arthropathy as described above. Head CT 07/16/23 04:47 IMPRESSION: 1. No acute intracranial process seen. 2. Moderate cerebral volume loss with chronic small vessel ischemic changes. 3. There is no acute fracture, dislocation or subluxation cervical spine. There are degenerative disc changes and facet joint arthropathy as described above. Abdomen/Pelvis CT 07/16/23 04:48 IMPRESSION: T8 and T11 compression fractures. The T11 fracture was not present previously and may be acute. Scarring and/or subsegmental atelectasis at the left lung base associated with a minimal left pleural effusion. Bilateral renal calculi. Emphysema. 5 mm left lower lobe nodule. Per the 2017 revised Fleischner Society guidelines, no routine follow up is recommended for solid nodules < 6mm in the middle/lower lobes. Fleischner guidelines were followed. Chest CT 07/16/23 04:48 IMPRESSION: T8 and T11 compression fractures. The T11 fracture was not present previously and may be acute. Scarring and/or subsegmental atelectasis at the left lung base associated with a minimal left pleural effusion. Bilateral renal calculi. Emphysema. 5 mm left lower lobe nodule. Per the 2017 revised Fleischner Society guidelines, no routine follow up is recommended for solid nodules < 6mm in the middle/lower lobes. Fleischner guidelines were followed. Mental Status Exam Mental Status Exam Patient Appearance: Fatigued and Appropriate Patient Orientation: Person, Place, Time and Situation Level of Consciousness: Alert Patient Behavior: Talkative and Good Eye Contact Mood Description: Constricted and Anxious Affect Description: Constricted and Anxious Patient Cognition Impaired: No Ability to Follow Directions: Good Speech Pattern: Spontaneous Speech and Soft-Spoken Memory Description: Intact and Episodic Impaired Hallucinations: None Delusions: Not Present Thought Process: Intact and Goal Oriented Thought Content: positive for Intact and positive for Goal Oriented Depressive Symptoms: Increased Anxiety (remorse when discussing the incident) Judgement: Good Medications Medications Current Medications Acetaminophen (Acetaminophen 325 Mg Tablet) 975 mg PO Q6H PRN PRN Reason: Pain, Moderate(Pain Scale 4-6) Atorvastatin Calcium (Atorvastatin Calcium 40 Mg Tablet) 40 mg PO BEDTIME [facility] Last Admin: 07/17/23 21:20 Dose: 40 mg Enoxaparin Sodium (Enoxaparin Sodium 40 Mg/0.4 Ml Syringe) 40 mg SUBCUT Q24H [facility] Last Admin: 07/17/23 08:20 Dose: 40 mg Famotidine (Famotidine 20 Mg Tablet) 20 mg PO BID [facility] Last Admin: 07/18/23 09:12 Dose: 20 mg Ibuprofen (Ibuprofen 200 Mg Tablet) 200 mg PO Q6H PRN PRN Reason: Pain, Severe (Pain Scale 7-10) Lidocaine (Lidocaine 4 % Patch Adh..Patch) 1 patch TRANSDERMA DAILY [facility]; Protocol Last Admin: 07/18/23 09:12 Dose: Not Given Lorazepam (Lorazepam 0.5 Mg Tablet) 0.25 mg PO BID PRN PRN Reason: anxiety Last Admin: 07/18/23 09:11 Dose: 0.25 mg Omeprazole (Omeprazole 20 Mg Capsule.) 20 mg PO DAILY@0630 [facility] Last Admin: 07/18/23 06:33 Dose: 20 mg Quetiapine Fumarate (Quetiapine Fumarate 50 Mg Tablet) 50 mg PO BEDTIME [facility] Last Admin: 07/17/23 21:20 Dose: 50 mg Sodium Chloride (0.9 % Sodium Chloride Flush 3 Ml Syringe) 3 ml IVFLUSH QSHIFT [facility] Last Admin: 07/18/23 09:12 Dose: 3 ml Tamsulosin HCl (Tamsulosin Hcl 0.4 Mg Capsule) 0.4 mg PO BEDTIME [facility] Last Admin: 07/17/23 21:20 Dose: 0.4 mg Temazepam (Temazepam 15 Mg Capsule) 15 mg PO BEDTIME PRN PRN Reason: sleep Last Admin: 07/17/23 21:20 Dose: 15 mg Allergies Allergies Allergy/AdvReac Type Severity Reaction Status Date / Time No Known Allergies Allergy Verified 05/17/23 13:06 Assessment & Plan Assessment & Plan (1) Acute electrocardiography changes: Status: Acute Code(s): R94.31 - Abnormal electrocardiogram [ECG] [EKG] Plan 72 yo female who took medications lorazepam, seroquel, temazepam from her HCP and from nursing on 07/17/23. She informed her team early this a.m. and they expressed concern about substance use and self destructive behaviors. Pt reports these medications have been part of her regime for several years from Dr. Barclay and Darren and she has never overtaken them or misused them. She has no SI/HI/Psychotic sx and denies substance use disorder. Total time managing care of this patient today ____ minutes. Informed Consent: understands
[2023-07-18] MEDS: Tamsulosin HCL 0.4 MG CAPSULE PO (20:14)
[2023-07-18] MEDS: Atorvastatin Calcium 40 MG TABLET PO (20:14)
[2023-07-18] MEDS: Temazepam 15 MG CAPSULE PO (21:20)
[2023-07-19] VITALS (9 sets, daily range): BP systolic 111–159; BP diastolic 55–84; PULSE 72–110; RESP 18–20; TEMP 36.1–36.8; O2SAT 93–97; BMI 16.6
[2023-07-19] MEDS: Omeprazole 20 MG CAPSULE.DR PO (06:06)
[2023-07-19] MEDS: Ibuprofen 200 MG TABLET PO ×2 (06:10→19:39)
[2023-07-19] MEDS: Famotidine 20 MG TABLET PO ×2 (07:39→19:39)
[2023-07-19] MEDS: 0.9 % Sodium Chloride Flush 3 ML SYRINGE IVFLUSH ×2 (07:39→19:43)
[2023-07-19] MEDS: Meclizine HCl 12.5 MG TABLET PO (09:24)
[2023-07-19] MEDS: polyethylene glycoL 3350 17 GM POWD.PACK PO (09:24)
--- NOTE | 2023-07-19 10:08 | HE.PHANOTE ---
PT OWN MEDS Patients contact Miguelina Larsen, (Verified with license) came to picker / packer patients medications stating she takes care of patients medications and accidentally brought them all in for the patient. However was told by nursing that they would not be given inpatient so therefore to have them brought home.
--- NOTE | 2023-07-19 10:52 | P.PNIM_ITS ---
Subjective Subjective Date of Service: 07/19/23 Interval History: dizziness Review of Systems she c/o dizziness ,spinning sensation no other c/o Physical Exam 2 Vital Signs: Vital Signs: Last Vital Signs Temp 98.3 F 07/19/23 07:46 Pulse 79 07/19/23 07:46 Resp 18 07/19/23 07:46 BP 127/68 07/19/23 07:46 Pulse Ox 94 07/19/23 07:46 O2 Del Method Room Air 07/19/23 07:46 BMI result Body Mass Index 16.6 Appearance: Alert.? Oriented X3.? cvs: rrr, [id number] . res: clear to auscultation ,no rhonchii or wheezing abd: no rebound or guarding ,nt, bs present. ext pulses present , no cyanosis . neuro: axo3 , nonfocal. Objective Data Active Medications Acetaminophen (Acetaminophen 325 Mg Tablet) 975 mg PO Q6H PRN PRN Reason: Pain, Moderate(Pain Scale 4-6) Atorvastatin Calcium (Atorvastatin Calcium 40 Mg Tablet) 40 mg PO BEDTIME [facility] Last Admin: 07/18/23 20:14 Dose: 40 mg Documented By: KEN Docusate Sodium (Docusate Sodium 100 Mg Capsule) 100 mg PO BEDTIME [facility] Enoxaparin Sodium (Enoxaparin Sodium 40 Mg/0.4 Ml Syringe) 40 mg SUBCUT Q24H [facility] Last Admin: 07/17/23 08:20 Dose: 40 mg Documented By: DIANE Famotidine (Famotidine 20 Mg Tablet) 20 mg PO BID [facility] Last Admin: 07/19/23 07:39 Dose: 20 mg Documented By: JACK Ibuprofen (Ibuprofen 200 Mg Tablet) 200 mg PO Q6H PRN PRN Reason: Pain, Severe (Pain Scale 7-10) Last Admin: 07/19/23 06:10 Dose: 200 mg Documented By: RIGO Lidocaine (Lidocaine 4 % Patch Adh..Patch) 1 patch TRANSDERMA DAILY [facility]; Protocol Last Admin: 07/19/23 07:42 Dose: Not Given Documented By: JACK Non-Admin Reason: Patient Refused Lorazepam (Lorazepam 0.5 Mg Tablet) 0.25 mg PO BID PRN PRN Reason: anxiety Last Admin: 07/18/23 09:11 Dose: 0.25 mg Documented By: PATRICK Meclizine HCl (Meclizine Hcl 12.5 Mg Tablet) 12.5 mg PO Q6H PRN PRN Reason: Vertigo Last Admin: 07/19/23 09:24 Dose: 12.5 mg Documented By: JACK Omeprazole (Omeprazole 20 Mg Capsule.) 20 mg PO DAILY@0630 [facility] Last Admin: 07/19/23 06:06 Dose: 20 mg Documented By: RIGO Polyethylene Glycol (Polyethylene Glycol 3350 17 Gm Powd.Pack) 17 gm PO DAILY PRN PRN Reason: Constipation Last Admin: 07/19/23 09:24 Dose: 17 gm Documented By: JACK Quetiapine Fumarate (Quetiapine Fumarate 50 Mg Tablet) 50 mg PO BEDTIME [facility] Last Admin: 07/17/23 21:20 Dose: 50 mg Documented By: ZAYNAB Sodium Chloride (0.9 % Sodium Chloride Flush 3 Ml Syringe) 3 ml IVFLUSH QSHIFT [facility] Last Admin: 07/19/23 07:39 Dose: 3 ml Documented By: JACK Tamsulosin HCl (Tamsulosin Hcl 0.4 Mg Capsule) 0.4 mg PO BEDTIME [facility] Last Admin: 07/18/23 20:14 Dose: 0.4 mg Documented By: KEN Temazepam (Temazepam 15 Mg Capsule) 15 mg PO BEDTIME PRN PRN Reason: sleep Last Admin: 07/18/23 21:20 Dose: 15 mg Documented By: AMARILYSM Labs 07/16/23 03:53 07/17/23 05:47 Assessment and Plan (1) Dizziness: Status: Acute Plan 72 yo F with a PMH of moderate protein calorie malnutrition, stress-induced CMP with recovered EF, Raynaud's, GERD, and mood disorder who presented to [facility] ED on 07/16/23 after sustaining a fall. She is found to have EKG changes, low K/met. acidosis and possible acute compression fx. She will be admitted for further mgmt. boderline low bp-? thought to be orthostasis vs dehydration need iv hydration and bp monitering last night events noted -psych meds adjsuted ,avoid oxycodone . psych eval -elf-harm and/psych medication adjustment( inital presentation dizziness might be related to psych meds). if agaitation or new beahviour chnages might need sitter. Fall/dizziness bp seems to be improved still has dizziness /spinnin sensation supportive care-conitnue meclizines added neuro eval Ot eval - ?bppv HypoK repleted and resolved. T-wave inversions No chest pain and HS trop-I flat possibly related to electrolytes ekg repeated -seemsst chnages improved ,monitor on telemonitor Multiple compression fractures (T8/T11) T8 is old, T11 new (not present on last imaging) -- however, she does not appear to have uncontrolled pain / tenderness on exam monitor outpatient f/u Mood continue baseline meds urinary retention: has mcdonald, flomax will give voiding trial -if still retains -will need urology eval. DVT pptx, Lovenox ongoing hospitlisation-need rehab eval ,also psych eval for concern for self- harm and/psych medication adjustment( inital presentation dizziness might be related to psych meds),neuro eval for dizziness . Quality Stroke Does the patient have a stroke diagnosis?: No VTE Prior VTE?: No VTE Risk Level:: Medical - moderate - high VTE Device Contraindication: N/A - Device Ordered VTE Drug Contraindication: N/A - Med Ordered
--- NOTE | 2023-07-19 10:58 | P.CNNE_ITS ---
History of Present Illness Data of Consult Service Date: 07/19/23 Primary Care Provider: Unknown Physician HPI Reason for consult: Vertigo 73 years old woman with dizziness. She also suffered from urinary incontinence and was suffering from UTI recently while treated with indwelling catheter. She said that she had an attack of vertigo a year or 2 years ago that lasted couple of hours. This time it made her too dizzy and she decided to come to hospital. This morning, when she was trying to walk with a walker, she had similar feeling again. There was no associated pain numbness weakness confusion speech or language difficulty or visual symptom. Review of Systems 2 Review of Systems: Recent UTI [facility] Past Medical History Medical History External hemorrhoids Epidermal inclusion cyst White coat syndrome with high blood pressure but without hypertension Dry eyes Hyponatremia Hypercalcemia Diarrhea Renal calculi Constipation by delayed colonic transit GERD (gastroesophageal reflux disease) UTI (urinary tract infection) Villous adenoma of colon Insomnia Raynauds disease Anxiety Family History Family History Father Medical history unknown Mother Dementia Alzheimers disease Mental health disorder Brother Leukemia Sister Medical history unknown Surgical History Surgical History History of bronchoscopy History of tonsillectomy Social History Social History Household Members: None Housing: Apartment Housing Other:: assisted living. Do you presently have visiting nurse or other home services: Yes Alcohol intake: never Patient Tobacco Use Status: Former Tobacco user Tobacco use type: Cigarette Smoked in Last 30 Days: No e-Cigarette/Vaping Use: Never Used Patient Interested in Nicotine Replacement: No Patient Given Instructions on How to Stop Smoking: No Second Hand Smoke Exposure: No Use of substances other than those prescribed or required for medical reasons: No Currently Displaying Signs/Symptoms of Drug Intoxication Withdrawal: No Any prior treatment program specific to substance use: No Have you been hit, kicked, punched, or otherwise hurt by someone within the past year? If so, by whom?: No Do you feel safe in your current relationship?: No Is there a partner from a previous relationship who is making you feel unsafe now?: No Are you made to feel afraid or neglected: No Advance Directives: Yes Advance Directives Information Provided: No Advance Directives on File: Yes Advance Directives Date on File: 11/23/22 Do you have thoughts of harming others: None Do you have a plan to hurt others: No Plan Recently lost weight without trying: Yes How much weight loss: 14-23 pounds Nutrition Risks: Anorexia Patient : No : No Poor oral hygiene: No service: No Current occupational status: retired Cognitive needs: No Hearing needs: No Vision needs: Yes Meds Allergies Allergy/AdvReac Type Severity Reaction Status Date / Time No Known Allergies Allergy Verified 05/17/23 13:06 Active Medications: Current Medications Acetaminophen (Acetaminophen 325 Mg Tablet) 975 mg PO Q6H PRN PRN Reason: Pain, Moderate(Pain Scale 4-6) Atorvastatin Calcium (Atorvastatin Calcium 40 Mg Tablet) 40 mg PO BEDTIME [facility] Last Admin: 07/18/23 20:14 Dose: 40 mg Docusate Sodium (Docusate Sodium 100 Mg Capsule) 100 mg PO BEDTIME [facility] Enoxaparin Sodium (Enoxaparin Sodium 40 Mg/0.4 Ml Syringe) 40 mg SUBCUT Q24H [facility] Last Admin: 07/17/23 08:20 Dose: 40 mg Famotidine (Famotidine 20 Mg Tablet) 20 mg PO BID [facility] Last Admin: 07/19/23 07:39 Dose: 20 mg Ibuprofen (Ibuprofen 200 Mg Tablet) 200 mg PO Q6H PRN PRN Reason: Pain, Severe (Pain Scale 7-10) Last Admin: 07/19/23 06:10 Dose: 200 mg Lidocaine (Lidocaine 4 % Patch Adh..Patch) 1 patch TRANSDERMA DAILY [facility]; Protocol Last Admin: 07/19/23 07:42 Dose: Not Given Lorazepam (Lorazepam 0.5 Mg Tablet) 0.25 mg PO BID PRN PRN Reason: anxiety Last Admin: 07/18/23 09:11 Dose: 0.25 mg Meclizine HCl (Meclizine Hcl 12.5 Mg Tablet) 12.5 mg PO Q6H PRN PRN Reason: Vertigo Last Admin: 07/19/23 09:24 Dose: 12.5 mg Omeprazole (Omeprazole 20 Mg Capsule.Dr) 20 mg PO DAILY@0630 [facility] Last Admin: 07/19/23 06:06 Dose: 20 mg Polyethylene Glycol (Polyethylene Glycol 3350 17 Gm Powd.Pack) 17 gm PO DAILY PRN PRN Reason: Constipation Last Admin: 07/19/23 09:24 Dose: 17 gm Quetiapine Fumarate (Quetiapine Fumarate 50 Mg Tablet) 50 mg PO BEDTIME [facility] Last Admin: 07/17/23 21:20 Dose: 50 mg Sodium Chloride (0.9 % Sodium Chloride Flush 3 Ml Syringe) 3 ml IVFLUSH QSHIFT [facility] Last Admin: 07/19/23 07:39 Dose: 3 ml Tamsulosin HCl (Tamsulosin Hcl 0.4 Mg Capsule) 0.4 mg PO BEDTIME [facility] Last Admin: 07/18/23 20:14 Dose: 0.4 mg Temazepam (Temazepam 15 Mg Capsule) 15 mg PO BEDTIME PRN PRN Reason: sleep Last Admin: 07/18/23 21:20 Dose: 15 mg Home Medications Medication Instructions Recorded Confirmed Last Taken Type pantoprazole 40 mg tablet,delayed 40 mg PO DAILY@62907/16/23 07/16/23 07/15/23 History release quetiapine 50 mg tablet PO BEDTIME 07/16/23 Unknown History Physical Exam 2 Vital Signs: Vital Signs: Last Vital Signs Temp 98.3 F 07/19/23 07:46 Pulse 79 07/19/23 07:46 Resp 18 07/19/23 07:46 BP 127/68 07/19/23 07:46 Pulse Ox 94 07/19/23 07:46 O2 Del Method Room Air 07/19/23 07:46 BMI result Body Mass Index 16.6 Neuro: Other: She is alert and awake with normal spontaneity of speech fluency comprehension and anxious affect. Face is symmetrical. Visual land are full. There is no nystagmus. There is no [id number] ataxia or focal arm or leg weakness. Plantars are flexor. Speech is normal. Results Labs 07/16/23 03:53 07/17/23 05:47 Labs: Head CT revealed [id number] diffuse cortical cerebral atrophy per Assessment and Plan (1) Dizziness: Status: Acute 72 years old woman with dizziness of vertigo type, positional in nature, sporadic, worsened with recent UTI. Common sense measures to avoid any falls are recommended. Medicines seem not to work well. Treatment of underlying infection might be the best approach. Also, she has significant cerebral atrophy, which suggested underlying degenerative dementia. Procedures Date of Service Date of Service: 07/19/23
--- NOTE | 2023-07-19 11:55 | MHC.CLN ---
RE: CONSULT \PT IS MODERATELY MALNOURISHED PT WITH MILDLY DEPLETED SUBCUTANEOUS FAT AND MUSCLE MASS WITH BMI 16.6 DIET RX: REGULAR-APPROPRIATE PT REPORTS HER APPETITE AT HOME IS GREAT UNLESS I GET UPSET WT HX REVEALS STABLE WT, NO SIGNIFICANT WT LOSS X 1 YEAR. PT APPEARS VERY ANXIOUS WHEN DISCUSSING HT/WT/APPETITE. PT C/O CONSTIPATION. PT STATED SHE SPOKE WITH HER PCP ABOUT HER WT AND HAS DIFFICULTY GAINING WT. PT LIKES ICE CREAM AND ORDERED FOR LUNCH TODAY. REFUSED SUPPLEMENT BUT RECEPTIVE TO FORTIFIED ICE CREAM RECOMMEND ADDING MAGIC CUP X3 PER DAY TO INCREASE KCALS MONITOR PO INTAKE AND ENCOURAGE SUPPLEMENT SEE ALSO FULL CLINICAL NUTRITION ASSESSMENT
--- NOTE | 2023-07-19 12:58 | P.CDIM_ITS ---
PROVIDER RESPONSE TEXT: To clarify, the appropriate diagnosis supported by the clinical indicators: Compression fracture: possible traumatic QUERY TEXT: PHYSICIAN'S DOCUMENTATION REQUEST Date of Query: 07/19/2023 08:23 AM EST Patient Name: Lisa Edward Admit Date: 07/18/2023 Dear Martha Onofre, A review of the medical record indicates additional documentation may be needed. Please review below and update the documentation accordingly. Clinical Indicators: Multiple compression fractures T8/T11 T8 is old, T11 new Fall off the bed at home. Dizzy fell down thinks she pulled her chest muscle causing bilateral chest pain, reported head injury . Please provide the following additional clarification regarding the fracture Type: Compression fracture Traumatic, nontraumatic, pathological etc. Other Other (explain) Clinically unable to determine (explain) Thank you, Tamra Zamudio, CCS, CDIS Use of terms such as suspected, likely, concern for, or probable (associated with a specific diagnosi s that is being evaluated, monitored, or treated as if it exists) are acceptable and can be coded in the inpatient se tting, when documented at the time of discharge. Please use your independent medical judgment in providing your response. THIS QUERY IS PART OF THE PERMANENT MEDICAL RECORD
--- NOTE | 2023-07-19 13:02 | P.CDIM_ITS ---
PROVIDER RESPONSE TEXT: To clarify, the appropriate diagnosis supported by the clinical indicators: Other (explain): low potassium due to poor oral intake QUERY TEXT: PHYSICIAN'S DOCUMENTATION REQUEST Date of Query: 07/19/2023 08:28 AM EST Patient Name: Lisa Edward Admit Date: 07/18/2023 Dear Martha Onofre, A review of the medical record indicates additional documentation may be needed. Please review below and update the documentation accordingly. Clinical Indicators: H&P dated 07/16 - low k/metabolic acidosis IVF in the ED Clarify which of the following accurately represents the acuity of the metabolic acidosis: Acute Acute on chronic Other (explain) Clinically unable to determine (explain) Thank you, Tamra Zamudio, CCS, CDIS Use of terms such as suspected, likely, concern for, or probable (associated with a specific diagnosi s that is being evaluated, monitored, or treated as if it exists) are acceptable and can be coded in the inpatient se tting, when documented at the time of discharge. Please use your independent medical judgment in providing your response. THIS QUERY IS PART OF THE PERMANENT MEDICAL RECORD
--- NOTE | 2023-07-19 15:27 | MHC.CM.PN ---
referrals out to acute rehab, [facility] following. Referrals out to SNF for STR, clinically accepted at [facility], pt will be able to get Medicare coverage for this if she is DC on 07/21/23. CM to continue to work on DC.
[2023-07-19] MEDS: Atorvastatin Calcium 40 MG TABLET PO (19:39)
[2023-07-19] MEDS: Docusate Sodium 100 MG CAPSULE PO (19:39)
[2023-07-19] MEDS: Temazepam 15 MG CAPSULE PO (19:39)
[2023-07-19] MEDS: Tamsulosin HCL 0.4 MG CAPSULE PO (19:39)
[2023-07-19] MEDS: LORazepam 0.5 MG TABLET 0.25 MG PO (19:40)
[2023-07-20] VITALS: BP 113/54; PULSE 73; RESP 16; TEMP 36.6; O2SAT 96
[2023-07-20 03:45] VITALS: BP 111/63; PULSE 80; RESP 18; TEMP 36.8; O2SAT 100
[2023-07-20] MEDS: Omeprazole 20 MG CAPSULE.DR PO (04:50)
[2023-07-20] MEDS: Ibuprofen 200 MG TABLET PO (04:50)
[2023-07-20 08:00] VITALS: BP 146/69; PULSE 86; RESP 20; TEMP 36.4; O2SAT 96
[2023-07-20] MEDS: Famotidine 20 MG TABLET PO (08:49)
[2023-07-20] MEDS: 0.9 % Sodium Chloride Flush 3 ML SYRINGE IVFLUSH (08:49)
--- NOTE | 2023-07-20 10:41 | MHC.CLN ---
F/U PT REPORTED SHE DISLIKED MAGIC CUP FORTIFIED ICE CREAM WILL REMOVE MAGIC CUP PER PT'S REQUEST PT RECEPTIVE TO EATING [employer]ANILLA ICE CREAM TO INCREASE KCALS KITCHEN AWARE AND WILL PROVIDE REGULAR VANILLA ICE CREAM
--- NOTE | 2023-07-20 11:09 | PM.DS ---
DS: Providers Provider Date of Service: 07/20/23 Date of admission: 07/18/23 14:16 Primary care physician: Aniyah Mcgregor MD Consults: 07/18/23 06:26 Consult to Psychiatry Routine Consulting Provider: Psych Covering Reason for consultation: Concern for self-harm/drug seeking behavior Has provider been notified: No 07/19/23 09:09 Consult to Neurology Routine Consulting Provider: [facility] Reason for consultation: Persistent vertiago unclear etiology Has provider been notified: No DS: Diagnosis Discharge Diagnosis (1) Dizziness: Status: Resolved DS: Summary Hospital Course Hospital Course: admission hpi Chief Complaint: fall The patient is a 71 yo F with a PMH of moderate protein calorie malnutrition, stress-induced CMP with recovered EF, Raynaud's, GERD, and mood disorder who presented to [facility] ED on 07/16/23 after sustaining a fall. The patient reports that she had urinary retention and resultant incontinence which requires her to make multple trips to the bathroom over night. On the night prior to admission, the patient reported that while attempting to go to the bathroom for the second time in 2 hours, she felt dizzy/lightheaded and had a sensation of the room spinning which resulted in her falling. She denies any LOC. Denies any seizure type activity. Denies any chest pain / sob / palpitations. In the ED, the patient's work up showed mild metabolic acidosis with hypokalemia. Her imaging studies showed T8 and T11 compression fractures, T11 is new from the previous imaging (potentially new). Her orthostatic were negative, however, these were completed after she had received 1L of IVF bolus. Her EKG shows lateral and anterior T wave inversions. She was noted to have urinary retention and a mcdonald has been inserted. She will now be placed under obs for further management. hospital course 72 yo F with a PMH of moderate protein calorie malnutrition, stress-induced CMP with recovered EF, Raynaud's, GERD, and mood disorder who presented to [facility] ED on 07/16/23 after sustaining a fall. She is found to have EKG changes, low K/met. acidosis and possible acute compression fx. She will be admitted for further mgmt. 1. Fall and dizziness possibly related to dehydraton causing orthostatic hypotension and improved with IV fluid hydration, no malignant arrythmia noted on monitor. She was evaluated by PT with recommendation for short term rehab 2. HypoKalemia--his resolved with supplement 3. T-wave inversions No chest pain and HS trop-I flat, likely related to low potassium of 2.8 on admission 4. Multiple compression fractures (T8/T11) T8 is old, T11 new (not present on last imaging) -- however, she does not appear to have uncontrolled pain / tenderness on exam outpatient f/u 5. Mood continue baseline meds Dispo to short term rehab Time Attestation Discharge coordination time: Greater than 30 minutes Quality: Safe Use of Opioids Does Pt have an Active Cancer Diagnosis on the Problem List?: No Quality: Stroke Does the patient have a stroke diagnosis?: No Physical Exam Vital Signs: Vital Signs: Last Vital Signs Temp 97.6 F 07/20/23 08:00 Pulse 86 07/20/23 08:00 Resp 20 07/20/23 08:00 BP 146/69 H 07/20/23 08:00 Pulse Ox 96 07/20/23 08:00 O2 Del Method Room Air 07/20/23 08:00 BMI result Body Mass Index 16.6 Discharge Plan Discharge Anticipated Discharge Date/Time: 07/20/23 11:09 Patient Disposition: Xfer SNF Discharge Diagnosis: Dizziness, fall Referrals: [facility] [place] [Outside] - 1 Week Aniyah Smith MD [Primary Care Provider] - 1 Week Discharge Medications: Continued (DME) foot inserts See Rx Instructions .Route .MEDSUPPLY Qty: 1 0RF Rx Instructions: As directed (DME) leno.stocking,knee,reg,smal Misc See Rx Instructions .Route Qty: 12 0RF Rx Instructions: As directed metoprolol succinate 25 mg tablet extended release 24 hr 25 mg PO DAILY Qty: 30 5RF atorvastatin 40 mg tablet 40 mg PO BEDTIME 90 Days Qty: 90 1RF quetiapine 50 mg tablet 25 mg PO BEDTIME lorazepam 1 mg tablet 1 mg PO BID PRN (Reason: anxiety) 30 Days Qty: 60 5RF temazepam 15 mg capsule 15 mg PO BEDTIME PRN (Reason: sleep) 30 Days Qty: 30 5RF No Action pantoprazole 40 mg tablet,delayed release (DR/EC) 40 mg PO DAILY@0630 90 Days Qty: 90 1RF famotidine 20 mg tablet 20 mg PO BID@0900,1200 tramadol 50 mg Tablet 50 mg PO Q6H PRN (Reason: Pain) quetiapine 50 mg tablet 25 mg PO BEDTIME PRN (Reason: Insomnia) Rx Instructions: give in addition to scheduled dose if needed vancomycin 125 mg Capsule 125 mg PO Q48H Qty: 0 0RF enoxaparin 40 mg/0.4 mL Syringe 40 mg subcut Q24H Qty: 0 0RF oxycodone 5 mg Tablet 5 mg PO Q6H PRN (Reason: Pain, Moderate(Pain Scale 4-6)) Qty: 15 0RF Rx Instructions: Partial Fill upon patient request. Discharge Orders: Discharge Order (Routine); Ordered 07/20/23 Ordered By: Blaine Machuca Diet: Advance to usual diet Activity on Discharge: As tolerated Stand Alone Forms: Patient Portal Discharge page Print Language: French Care Plan Goals: fall prevention from dizziness and orthostatic hypotension Health Concerns: dizziness, orthostati hypotension, compression fracture Plan of Treatment: drink plenty of fluid, wear leg stocking, stand up from sitting position slowly Assessment: see above Discharge Date/Time: 07/20/23 14:52
--- NOTE | 2023-07-20 11:40 | MHC.CM.PN ---
Pt has been medically cleared for DC, she will go via ambulance to [facility] acute rehab today.
[2023-07-20 12:00] VITALS: BP 120/57; PULSE 76; RESP 16; TEMP 36.9; O2SAT 97
[2023-07-20] MEDS: LORazepam 0.5 MG TABLET 0.25 MG PO (13:35)
== END 2023-07-20 14:52 | disposition skilled nursing facility (03) | DRG 312 ==
LOC: HO.ED 05:10 → HO.EDOVER 09:05 → HO.IMC 19:43
PROVIDERS: Internal Medicine; Admitting Provider Family Medicine; Emergency Provider Emergency Medicine; PCP Internal Medicine; Visit Provider Internal Medicine
DX: I95.1 Orthostatic hypotension (principal); S22.089A Unspecified fracture of T11-T12 vertebra, initial encounter for closed fracture; E87.6 Hypokalemia; E86.0 Dehydration; R33.9 Retention of urine, unspecified; R94.31 Abnormal electrocardiogram [ECG] [EKG]; F39 Unspecified mood [affective] disorder; W06.XXXA Fall from bed, initial encounter; Z87.891 Personal history of nicotine dependence; Z79.899 Other long term (current) drug therapy
CPT/HCPCS: 36415; 70450; 71250; 72125; 74176; 80048; 80076; 81001; 83036; 83690; 83735; 83880; 84484; 85025; 93005; 97110; 97116; 97161; 97165; 97535; 99222; 99285; 99499; C1758; J1650; J1885; J3480

== ENCOUNTER → 2023-07-16 03:28 | Outpatient (BNV) | payer MEDICARE, SELFPAY | PROVIDERS: Admitting Provider Family Medicine; Emergency Provider Emergency Medicine; Visit Provider Internal Medicine | DX: R42 Dizziness and giddiness (principal) | CPT/HCPCS: 93010 ==

== ENCOUNTER 2023-07-16 08:59 | Outpatient (BNV) | payer MEDICARE, SELFPAY | END 2023-07-17 07:59 | PROVIDERS: Admitting Provider Family Medicine; Emergency Provider Emergency Medicine; Visit Provider Internal Medicine | DX: R94.31 Abnormal electrocardiogram [ECG] [EKG] (principal) | CPT/HCPCS: 93010 ==

== ENCOUNTER → 2023-07-16 08:59 | Outpatient (BNV) | payer MEDICARE, SELFPAY | PROVIDERS: Admitting Provider Family Medicine; Emergency Provider Emergency Medicine; Visit Provider Family Medicine | DX: R42 Dizziness and giddiness (principal) | CPT/HCPCS: 99222; 99231; 99232; 99239 ==

== ENCOUNTER → 2023-07-18 14:16 | Outpatient (BNV) | payer MEDICARE, SELFPAY | PROVIDERS: Admitting Provider Family Medicine; Emergency Provider Emergency Medicine; PCP Internal Medicine; Visit Provider Clinical Nurse Specialist Psychiatric/Mental Health, Adult | DX: F41.9 Anxiety disorder, unspecified (principal); R94.31 Abnormal electrocardiogram [ECG] [EKG] | CPT/HCPCS: 99222 ==

== ENCOUNTER → 2023-07-18 14:16 | Outpatient (BNV) | payer MEDICARE, SELFPAY | PROVIDERS: Admitting Provider Family Medicine; Emergency Provider Emergency Medicine; Visit Provider Psychiatry & Neurology Neurology | DX: R42 Dizziness and giddiness (principal) | CPT/HCPCS: 99222 ==

== ENCOUNTER 2023-08-14 00:23 | Inpatient (IN) | payer MEDICARE, SELFPAY ==
[2023-08-14] VITALS (9 sets, daily range): BP systolic 96–145; BP diastolic 43–76; PULSE 74–92; RESP 14–20; TEMP 36.7–37.4; O2SAT 94–98; BMI 14.2; BMI 19.3
--- NOTE | ~2023-08-14 | CT_ITS ---
EXAMINATION: CT ABDOMEN AND PELVIS WITH CONTRAST CLINICAL INFORMATION: lower abdo pain/tenderness WBC 17 COMPARISON: 07/16/2023 TECHNIQUE: Multidetector volumetric images were obtained from the superior aspect of the liver through the pubic symphysis following administration 85 mL of Omnipaque 350 intravenous contrast. Sagittal and coronal reformatted images were obtained on the technologist's workstation. Oral contrast: No This CT examination was performed using dose optimization techniques as appropriate, variously including the following: *Automated exposure control *Adjustment of mA and/or kV according to patient size (this includes techniques or standardized protocols for targeted exams where dose is matched to indication/reason for exam; i.e. extremities or head) *Use of iterative reconstruction technique DLP: 357 mGy-cm Limited evaluation throughout due to motion artifact. FINDINGS: LUNG BASES: Streaky bibasilar opacities favor atelectasis. LIVER, GALLBLADDER, AND BILIARY TREE: The liver is normal in size, shape, and attenuation. No focal hepatic lesion or biliary ductal dilatation is identified on motion limited exam. Gallbladder is not adequately assessed due to motion artifact. PANCREAS: No definite abnormality, though not adequately assessed due to motion artifact. SPLEEN: Normal size, otherwise not well evaluated. ADRENAL GLANDS: Not adequately assessed due to motion artifact. KIDNEYS AND URETERS: Bilateral nephrograms appear grossly symmetric. No appreciable hydronephrosis bilaterally. Few bilateral renal calculi are present measuring up to approximately 17 mm in the left lower pole. BLADDER: Moderately distended. GASTROINTESTINAL TRACT: No convincing evidence for bowel obstruction. There is a prominent enhancing, thick-walled appearance of the rectum and much of the sigmoid colon. There is also suspected wall thickening within much of the descending and ascending colon. Overall appearance is suspicious for sequelae of colitis and proctitis. No free air or significant free fluid identified, though evaluation for this is limited due to motion artifact. ABDOMINAL WALL: No significant hernia is appreciated. LYMPH NODES: Limited evaluation due to motion artifact and lack of intra-abdominal fat. VASCULAR: There is atherosclerotic calcification along the aorta and iliac arteries. PELVIC VISCERA: Grossly unremarkable. OSSEOUS STRUCTURES: Not well assessed due to motion artifact. Chronic deformities of the bilateral pubic rami. Prominent levoscoliosis of the thoracolumbar junction. There is moderate compression deformity of T11 which has progressed worsened compared to prior. Degenerative changes are noted in the spine. CT/CT abdomen pelvis w IV con IMPRESSION: 1. Limited examination due to motion artifact. 2. Prominent enhancing, thick-walled appearance of the rectum and much of the sigmoid colon, as well as much of the descending and ascending colon. Overall appearance is suspicious for sequelae of colitis and proctitis. 3. Bilateral renal calculi without appreciable hydronephrosis. 4. Moderate compression deformity of T11, worsened compared to 07/16/2023.
--- NOTE | ~2023-08-14 | CT_ITS ---
EXAMINATION: CT HEAD WITHOUT CONTRAST CLINICAL INFORMATION: Fall COMPARISON: 07/16/2023 TECHNIQUE: Contiguous axial imaging was performed from the skull base to vertex without intravenous administration of contrast. This CT examination was performed using dose optimization techniques as appropriate, variously including the following: *Automated exposure control *Adjustment of mA and/or kV according to patient size (this includes techniques or standardized protocols for targeted exams where dose is matched to indication/reason for exam; i.e. extremities or head) *Use of iterative reconstruction technique DLP: 605 mGy-cm FINDINGS: There is no evidence of acute intracranial hemorrhage or territorial infarction. No abnormal mass-effect or midline shift is seen. Cabrera to white matter differentiation is well preserved. No extra-axial fluid collections are identified. Stable focal hyperdensity measuring up to 4 mm along the anterior falx is redemonstrated, possibly a small meningioma. The ventricles are normal in size. There is mild periventricular white matter hypoattenuation consistent with chronic small vessel ischemic disease. Mild volume loss is noted. The osseous structures and soft tissues are normal. The mastoid air cells and visualized portions of the paranasal sinuses are well-aerated. CT/CT head/brain wo IV con IMPRESSION: No acute intracranial pathology.
--- NOTE | ~2023-08-14 | XR_ITS ---
EXAMINATION: XR ANKLE, RIGHT XR FOOT, RIGHT CLINICAL INDICATION: Fall COMPARISON: None TECHNIQUE: 3 views of the right ankle. 3 views of the right foot. FINDINGS: Diffuse osteopenia is noted. There is soft tissue swelling at the ankle and along the dorsum of the foot. No acute fracture is seen. XR/XR ankle RT 2V IMPRESSION: Soft tissue swelling without acute osseous findings.
--- NOTE | ~2023-08-14 | XR_ITS ---
EXAMINATION: XR ANKLE, RIGHT XR FOOT, RIGHT CLINICAL INDICATION: Fall COMPARISON: None TECHNIQUE: 3 views of the right ankle. 3 views of the right foot. FINDINGS: Diffuse osteopenia is noted. There is soft tissue swelling at the ankle and along the dorsum of the foot. No acute fracture is seen. XR/XR foot RT 2V IMPRESSION: Soft tissue swelling without acute osseous findings.
--- NOTE | 2023-08-14 00:53 | ECG_ITS ---
Test Reason : FALL Blood Pressure : / mmHG Vent. Rate : 076 BPM Atrial Rate : 076 BPM P-R Int : 120 ms QRS Dur : 084 ms QT Int : 392 ms P-R-T Axes : 084 028 037 degrees QTc Int : 441 ms Normal sinus rhythm ST & T wave abnormality, consider anterior ischemia Abnormal ECG When compared with ECG of 17-JUL-2023 07:59, Non-specific change in ST segment in Anterior leads T wave inversion now evident in Anterior leads Referred By: Generic ED Physician Electronically Signed By:Alvino Joseph
[2023-08-14 01:12] LABS: MANUAL DIFF FLAG NO
[2023-08-14 01:13] LABS: Basophils Absolute Auto 0.1 X10*3/uL (0.0-0.2); Basophils Percent Auto 0.3 % (0-2); Eosinophils Absolute Auto 0.2 X10*3/uL (0.0-0.4); Eosinophils Percent Auto 0.8 % (0-4); Hematocrit 29.3 % (37.0-47.0); Hemoglobin 9.6 g/dl (12.0-16.0); Imm Gran Abs Auto 0.08 X10*3/uL (0.00-0.03); Imm Gran Pct Auto 0.5 % (0.0-0.4); Lymphocytes Absolute Auto 1.9 X10*3/uL (1.2-4.9); Lymphocytes Percent Auto 10.8 % (20-40); Mean Corpuscular HGB Conc 32.8 g/dl (31.0-35.0); Mean Corpuscular Volume 88.5 fL (80.0-98.0); Mean Platelet Volume 8.6 fL (9.4-12.3); Monocytes Absolute Auto 1.3 X10*3/uL (0.1-1.2); Monocytes Percent Auto 7.1 % (2-11); Neutrophils Absolute Auto 14.2 x10*3/uL (2.0-8.3); Neutrophils Percent Auto 80.5 % (45-73); Platelet Count 326 X10*3/uL (160-400); Red Blood Count 3.31 X10*6/uL (4.20-5.50); Red Cell Distribution Width 14.3 % (11.0-16.0); White Blood Count 17.7 X10*3/uL (4.8-10.8)
[2023-08-14 01:13] LABS: Glucose, Whole Blood 61 mg/dL (60-115)
[2023-08-14 01:27] LABS: Alanine Aminotransferase 10 U/L (0-31); Albumin Level 2.9 g/dL (3.5-5.0); Alkaline Phosphatase 128 U/L (39-117); Anion Gap 12 (12-20); Aspartate Amino Transferase 14 U/L (5-31); Bilirubin Total 0.5 mg/dL (0.0-1.0); Blood Urea Nitrogen 20 mg/dL (9-16); Calcium 8.8 mg/dL (8.4-10.2); Carbon Dioxide 17 mmol/L (22-29); Chloride 112 mmol/L (96-108); Creatinine Clr Calc Pharmacy 31.8; Estimated Glomerular Filt Rate > 60; Glucose Random 87 mg/dL (60-115); Potassium 3.1 mmol/L (3.3-5.1); Sodium 138 mmol/L (135-145); Total Protein 5.2 g/dL (6.5-8.0)
--- NOTE | 2023-08-14 02:42 | ED_ITS ---
HPI - General Adult General Chief complaint: Fall Stated complaint: FALL FROM BED Time Seen by Provider: 08/14/23 02:25 History of Present Illness HPI narrative: The patient is a 72-year-old woman who lives alone in her own apartment. She lives in elderly housing. Apparently she fell in her apartment. She does not know if she fell getting into bed or fell getting out of bed. She does not know if she hit her head or not. She tried to use her Emergency bracelet but she says it does not work. She then called 911. She says that at 1st she did not want to come to the hospital but just wanted a lift assist. However paramedics contacted her healthcare proxy who recommended she come to the hospital. Here the patient says she developed a headache after arriving at the hospital although the headache is currently subsiding. She denies any neck pain or pain with moving her neck. She is concerned that she has lower abdominal discomfort. She says she has had a lot of loose stool lately. Related Data Home Medications Medication Instructions Recorded Confirmed pantoprazole 40 mg tablet,delayed 40 mg PO DAILY@0630 07/16/23 07/16/23 release quetiapine 50 mg tablet 100 mg PO BEDTIME 07/16/23 Previous Rx's Medication Instructions Recorded foot inserts #1 ea 12/04/21 leno.stocking,knee,reg,smal #12 ea 10/14/22 atorvastatin 40 mg tablet 40 mg PO BEDTIME 90 days #90 tabs 03/09/23 famotidine 20 mg tablet 20 mg PO BID 90 days #180 tabs 03/09/23 lorazepam 1 mg tablet 1 mg PO BID PRN anxiety 30 days 03/09/23 #60 tabs metoprolol succinate 25 mg 25 mg PO DAILY #30 tabs 03/09/23 tablet,extended release 24 hr temazepam 15 mg capsule 15 mg PO BEDTIME PRN sleep 30 days 03/09/23 #30 caps Allergies Allergy/AdvReac Type Severity Reaction Status Date / Time No Known Allergies Allergy Verified 05/17/23 13:06 Review of Systems 2 Review of Systems: Yes all other systems are reviewed and are negative [facility] Past Medical History Medical History External hemorrhoids Epidermal inclusion cyst White coat syndrome with high blood pressure but without hypertension Dry eyes Hyponatremia Hypercalcemia Diarrhea Renal calculi Constipation by delayed colonic transit GERD (gastroesophageal reflux disease) UTI (urinary tract infection) Villous adenoma of colon Insomnia Raynauds disease Anxiety Surgical History History of bronchoscopy History of tonsillectomy Family History Family History Father Medical history unknown Mother Dementia Alzheimers disease Mental health disorder Brother Leukemia Sister Medical history unknown Social History Social History Household Members: None Housing: Apartment Housing Other:: assisted living. Do you presently have visiting nurse or other home services: Yes Alcohol intake: former Patient Tobacco Use Status: Former Tobacco user Tobacco use type: Cigarette Smoked in Last 30 Days: No e-Cigarette/Vaping Use: Never Used Second Hand Smoke Exposure: No Use of substances other than those prescribed or required for medical reasons: No Advance Directives: Yes Advance Directives on File: Yes Advance Directives Date on File: 11/23/22 service: No Current occupational status: retired Cognitive needs: No Hearing needs: No Vision needs: Yes Physical Exam ED Vital Signs: Vital Signs - 24 hr 08/14/23 00:42 08/14/23 00:49 08/14/23 04:18 Temperature 98.2 F 98.2 F Pulse Rate 75 74 79 Respiratory Rate 18 14 16 Blood Pressure 101/52 L 101/52 L 114/50 L Pulse Oximetry 94 96 96 Oxygen Delivery Method Room Air Room Air 08/14/23 04:25 08/14/23 07:14 Temperature 98.8 F Pulse Rate 79 84 Respiratory Rate 17 20 Blood Pressure 116/60 96/43 L Pulse Oximetry 97 98 Oxygen Delivery Method Room Air Room Air BMI result Body Mass Index 14.2 Const Other: The patient is a very thin, pale looking woman. She is awake and alert. She has an anxious affect. She does not seem obviously injured or obviously ill but she does look very pale and wasted. HENMT Other: Face is symmetrical. Mucous membranes not obviously dry. Eyes Other: Pupils are round equal, conjunctivae clear, extraocular movements intact Neck Other: No JVD, no neck swelling Resp Effort & Inspection: normal respiratory effort Auscultation: clear to auscultation bilaterally Cardio Rate: regular rate Rhythm: regular rhythm Heart sounds: S1 normal heart sound present and S2 normal heart sound present GI Other: The patient reports diffuse tenderness with palpation of the lower abdomen. The abdomen is soft. Skin Other: Skin is very pale. The skin is dry. Neuro Other: The patient is awake and alert. She has a somewhat anxious affect and may have some slight cognitive impairment. However her cranial nerves are grossly intact and she moves her extremities symmetrically. No focal findings. Extrem Other: No peripheral edema Medications Administered Discontinued Medications Generic Name Dose Route Start Last Admin Trade Name Freq PRN Reason Stop Dose Admin Sodium Chloride 1,000 mls @ 999 mls/hr 08/14/23 02:45 08/14/23 04:10 Ns IV 08/14/23 03:45 Infused .Q1H1M DEEPALI Infusion Iohexol 80 ml 08/14/23 04:00 08/14/23 04:00 Iohexol 350 Mg/Ml 100 Ml Infus..Btl IV 08/14/23 04:01 80 ml ONCE ONE Administration Potassium Chloride 40 meq 08/14/23 04:44 08/14/23 04:56 Potassium Chloride Er 10 Meq Tablet.Er PO 08/14/23 04:45 40 meq ONCE ONE Administration Medical Decision Making Medical Decision Making [facility] Narrative: The patient is a 72-year-old woman who lives alone in her own apartment comes to the emergency room after a fall. The patient is very vague about the circumstances of the fall can not really describe it at all. On exam she does not have obvious signs of injury. Her cervical spine is clinically clear. The patient describes having a lot of diarrhea recently to the point where she has been wearing diapers because of the diarrhea. She also complains of lower abdominal discomfort. The patient is afebrile[place] [id number] and a moderately elevated C-reactive protein. CT scan was read as showing findings of colitis. She does not seem septic. Her lactate is normal but her bicarb under metabolic panel 17. Overall I am not convinced the patient requires antibiotics but I think she should be hospitalized given her frailty, her elevated white count, and her CT findings. Additionally her potassium was mildly low. I contacted the hospitalist master motorcycle technician and the patient will be admitted for further evaluation. Lab Data 08/14/23 01:08 08/14/23 01:08 Labs: Lab Results 08/14/23 08/14/23 08/14/23 Range/Units 01:00 01:08 05:19 WBC 17.7 H (4.8-10.8) X10*3/uL RBC 3.31 L (4.20-5.50) X10*6/uL Hgb 9.6 L (12.0-16.0) g/dl Hct 29.3 L (37.0-47.0) % MCV 88.5 (80.0-98.0) fL MCH 29.0 (27.0-33.0) pg MCHC 32.8 (31.0-35.0) g/dl RDW 14.3 (11.0-16.0) % Plt Count 326 (160-400) X10*3/uL MPV 8.6 L (9.4-12.3) fL Immature Gran % (Auto) 0.5 H (0.0-0.4) % Neut % (Auto) 80.5 H (45-73) % Lymph % (Auto) 10.8 L (20-40) % [place] % (Auto) 7.1 (2-11) % Eos % (Auto) 0.8 (0-4) % Baso % (Auto) 0.3 (0-2) % Lymph # (Auto) 1.9 (1.2-4.9) X10*3/uL [place] # (Auto) 1.3 H (0.1-1.2) X10*3/uL Eos # (Auto) 0.2 (0.0-0.4) X10*3/uL Baso # (Auto) 0.1 (0.0-0.2) X10*3/uL Abs Immat Gran (auto) 0.08 H (0.00-0.03) X10*3/uL Absolute Neuts (auto) 14.2 H (2.0-8.3) x10*3/uL Absolute Nucleated RBC 0.000 (0.0-0.012) X10*3/uL Nucleated RBC % (auto) 0.0 (0.0-0.2) /100WBC Sodium 138 (135-145) mmol/L Potassium 3.1 L (3.3-5.1) mmol/L Chloride 112 H (96-108) mmol/L Carbon Dioxide 17 L (22-29) mmol/L Anion Gap 12 (12-20) BUN 20 H (9-16) mg/dL Creatinine 0.81 (0.5-1.4) mg/dL Estim Creat Clear Calc 31.8 Estimated GFR > 60 POC Glucose 61 (60-115) mg/dL Random Glucose 87 (60-115) mg/dL Lactic Acid (0.5-2.0) mmol/L Calcium 8.8 (8.4-10.2) mg/dL Total Bilirubin 0.5 (0.0-1.0) mg/dL AST 14 (5-31) U/L ALT 10 (0-31) U/L Alkaline Phosphatase 128 H (39-117) U/L Troponin I High Sens < 2.7 D (<3.5-17.0) ng/L C-Reactive Protein 8.31 H (< or = 0.50) mg/dL Total Protein 5.2 L (6.5-8.0) g/dL Albumin 2.9 L (3.5-5.0) g/dL Urine Color Yellow Urine Appearance Turbid Urine pH 8.0 (5.0-9.0) Ur Specific [place] 1.020 (1.005-1.025) Urine Protein 30 (1+) H (Neg-Trace) mg/dL Urine Glucose (UA) Negative (Negative) mg/dL Urine Ketones Trace (Negative) mg/dL Urine Blood Moderate (2+) H (Negative) Urine Nitrite Negative (Negative) Ur Leukocyte Esterase Moderate (2+) H (Negative) Urine RBC >20 H (0-2) /HPF Urine WBC 11-20 H (0-5) /HPF Ur Squamous Epith Cells 0-2 (0-2) /HPF Urine Bacteria None Seen (None Seen) Hyaline Casts 0-2 (0-2) /LPF 08/14/23 Range/Units 06:30 WBC (4.8-10.8) X10*3/uL RBC (4.20-5.50) X10*6/uL Hgb (12.0-16.0) g/dl Hct (37.0-47.0) % MCV (80.0-98.0) fL MCH (27.0-33.0) pg MCHC (31.0-35.0) g/dl RDW (11.0-16.0) % Plt Count (160-400) X10*3/uL MPV (9.4-12.3) fL Immature Gran % (Auto) (0.0-0.4) % Neut % (Auto) (45-73) % Lymph % (Auto) (20-40) % [place] % (Auto) (2-11) % Eos % (Auto) (0-4) % Baso % (Auto) (0-2) % Lymph # (Auto) (1.2-4.9) X10*3/uL [place] # (Auto) (0.1-1.2) X10*3/uL Eos # (Auto) (0.0-0.4) X10*3/uL Baso # (Auto) (0.0-0.2) X10*3/uL Abs Immat Gran (auto) (0.00-0.03) X10*3/uL Absolute Neuts (auto) (2.0-8.3) x10*3/uL Absolute Nucleated RBC (0.0-0.012) X10*3/uL Nucleated RBC % (auto) (0.0-0.2) /100WBC Sodium (135-145) mmol/L Potassium (3.3-5.1) mmol/L Chloride (96-108) mmol/L Carbon Dioxide (22-29) mmol/L Anion Gap (12-20) BUN (9-16) mg/dL Creatinine (0.5-1.4) mg/dL Estim Creat Clear Calc Estimated GFR POC Glucose (60-115) mg/dL Random Glucose (60-115) mg/dL Lactic Acid 0.8 (0.5-2.0) mmol/L Calcium (8.4-10.2) mg/dL Total Bilirubin (0.0-1.0) mg/dL AST (5-31) U/L ALT (0-31) U/L Alkaline Phosphatase (39-117) U/L Troponin I High Sens (<3.5-17.0) ng/L C-Reactive Protein (< or = 0.50) mg/dL Total Protein (6.5-8.0) g/dL Albumin (3.5-5.0) g/dL Urine Color Urine Appearance Urine pH (5.0-9.0) Ur Specific [place] (1.005-1.025) Urine Protein (Neg-Trace) mg/dL Urine Glucose (UA) (Negative) mg/dL Urine Ketones (Negative) mg/dL Urine Blood (Negative) Urine Nitrite (Negative) Ur Leukocyte Esterase (Negative) Urine RBC (0-2) /HPF Urine WBC (0-5) /HPF Ur Squamous Epith Cells (0-2) /HPF Urine Bacteria (None Seen) Hyaline Casts (0-2) /LPF Discharge Plan Discharge Clinical Impression: Colitis, Proctitis, Metabolic acidosis, Leukocytosis, Hypokalemia Patient Disposition: Admitted As Inpatient
[2023-08-14 02:52] LABS: C Reactive Protein 8.31 mg/dL (< or = 0.50)
[2023-08-14] MEDS: 0.9 % Sodium Chloride 1,000 ML 999 ML IV (03:01)
[2023-08-14 03:13] LABS: Troponin-I High Sensitivity < 2.7 ng/L (<3.5-17.0)
[2023-08-14] MEDS: iohexoL 350 MG/ML 100 ML INFUS..BTL 80 ML IV (04:00)
[2023-08-14] MEDS: Potassium Chloride ER 10 MEQ TABLET.ER 40 MEQ PO (04:56)
[2023-08-14 05:28] LABS: Appearance Urine Turbid; Color Urine Yellow; Glucose Urine UA Negative (Negative); Leukocyte Esterase Urine Moderate (2+) (Negative); Nitrite Urine Negative (Negative); UMIC TRIGGER UACC YES; Urine Blood Moderate (2+) (Negative); Urine Ketones Trace mg/dL (Negative); Urine Protein 30 (1+) mg/dL (Neg-Trace)
[2023-08-14 05:30] LABS: Bacteria Urine None Seen (None Seen); Hyaline Casts Urine 0-2 /LPF (0-2); RBC Urine >20 /HPF (0-2); Squamous Epithelial Cell Urine 0-2 /HPF (0-2); UACC Culture Trigger YES
[2023-08-14 06:52] LABS: Lactic Acid 0.8 mmol/L (0.5-2.0)
--- NOTE | 2023-08-14 07:08 | PC.NURSE ---
Resumed care of patient, she is currently receiving hygiene care by PCT post bowel movement. Awaiting dispo at this time
--- NOTE | 2023-08-14 09:17 | PHA.MEDREC ---
Pharmacy Consult ? Medication Reconciliation Pharmacy has completed the medication reconciliation.
--- NOTE | 2023-08-14 09:19 | PC.NURSE ---
This RN was with patient as she was screaming out, this RN placed diet order, called the kitchen to order exactly what she wanted, this RN then had a phone call from the hospital switch board stating the patient was calling to request talking to genetic supervisor about her food. this RN went into room and told her the kitchen needed time to make her meal, and they would bring it down. [place] provided, water provided, personal belongings next to patient.
[2023-08-14] MEDS: Piperacillin Sodium/Tazobactam 2.25 GM in 0.9 % Sodium Chloride 50 ML IV ×2 (10:29→21:35)
--- NOTE | 2023-08-14 11:12 | P.HPHOSP_ITS ---
History of Present Illness Date of Service: 08/14/23 Attending physician on admission: Heather Nielson Chief Complaint: Fall at home Pt is a 72-year-old female with a PMH significant for?moderate protein calorie malnutrition, stress induced cardiomyopathy with recovered EF, Raynaud's, GERD, and mood disorder who presents to the ED for evaluation after fall at home. Patient lives alone in elderly housing and has a recent admission last month from 07/18-07/20 for similar symptoms for fall at home and treated for hypokalemia and compression fractures of T8/T11. Patient reports after last discharge she went to rehab for 5 days and felt well upon getting home. Reports at baseline she has to urinate frequently at night but has difficulty getting in and out bed. Uses walker at baseline. This morning she rolled over in her bed to use the commode and slid to the floor. Unclear if hit her head or not. Has a bracelet to call EMS that was not working, so it took her 15-20 minutes to reach a landline to contact EMS who brought her in for further evaluation. Reports she has been experiencing diarrhea for the past 1-1/2 weeks and a stomach ache since earlier this morning. Reports has been eating and drinking normally with no nausea or vomiting. Denies fever, chills, cough. No lightheadedness or dizziness. Chronic fatigue appears at baseline. No chest pain/pressure, palpitations. In the ED pt had soft BP as low as 96/43, otherwise vitals WNL. Labs were significant for Leukocytosis of 17.7, H&H 9.6/29.3, potassium 3.1, alk-phos 128, C-reactive protein 8.31, protein 5.2, and albumin 2.9. UA likely negative, showing moderate leukocyte esterase and 11-20 wbc's, no nitrites or bacteria. CT of the abdomen and pelvis found thick-walled appearance of rectum much sigmoid, descending, and ascending colon, suspicious for colitis and proctitis. Also found worsened compound deformity of T11. Head CT negative for acute intracranial pathology. Right foot and ankle x-ray found soft tissue swelling without acute osseous findings. EKG demonstrated normal sinus rhythm with nonspecific ST abnormality and T-wave inversions in anterior leads. Pt was treated with IVF and potassium chloride. Pt will be admitted to the hospital for treatment further evaluation of colitis. Review of Systems 2 Review of Systems: Fall out of bed at home Diarrhea for past 1-1/2 weeks Abdominal pain since this morning Denies lightheadedness, dizziness No fever, chills, nausea, vomiting Denies chest pain/pressure, palpitations No shortness of breath PMFSH Medical History External hemorrhoids Epidermal inclusion cyst White coat syndrome with high blood pressure but without hypertension Dry eyes Hyponatremia Hypercalcemia Diarrhea Renal calculi Constipation by delayed colonic transit GERD (gastroesophageal reflux disease) UTI (urinary tract infection) Villous adenoma of colon Insomnia Raynauds disease Anxiety Family History Father Medical history unknown Mother Dementia Alzheimers disease Mental health disorder Brother Leukemia Sister Medical history unknown Surgical History History of bronchoscopy History of tonsillectomy Social History Household Members: None Housing: Apartment Housing Other:: assisted living. Do you presently have visiting nurse or other home services: Yes Alcohol intake: former Patient Tobacco Use Status: Former Tobacco user Tobacco use type: Cigarette Smoked in Last 30 Days: No e-Cigarette/Vaping Use: Never Used Second Hand Smoke Exposure: No Use of substances other than those prescribed or required for medical reasons: No Advance Directives: Yes Advance Directives on File: Yes Advance Directives Date on File: 11/23/22 service: No Current occupational status: retired Cognitive needs: No Hearing needs: No Vision needs: Yes Meds Allergies Allergy/AdvReac Type Severity Reaction Status Date / Time No Known Allergies Allergy Verified 05/17/23 13:06 Active Medications: Current Medications Atorvastatin Calcium (Atorvastatin Calcium 40 Mg Tablet) 40 mg PO BEDTIME DEEPALI Lactated Ringer's (Lr) 1,000 mls @ 100 mls/hr IVCONT .Q10H DEEPALI Piperacillin Sod/Tazobactam (Sod 2.25 gm/ Sodium Chloride) 50 mls @ 100 mls/hr IV Q6H DEEPALI Last Admin: 08/14/23 10:29 Dose: 100 mls/hr Lorazepam (Lorazepam 1 Mg Tablet) 1 mg PO BID PRN PRN Reason: anxiety Metoprolol Succinate (Metoprolol Succinate Er 25 Mg Tab.Er.24h) 25 mg PO DAILY [facility]; Protocol Omeprazole (Omeprazole 40 Mg Capsule.Dr) 40 mg PO DAILY@0630 [facility] Quetiapine Fumarate (Quetiapine Fumarate 25 Mg Tablet) 25 mg PO BEDTIME [facility] Home Medications Medication Instructions Recorded Confirmed Last Taken Type pantoprazole 40 mg tablet,delayed 40 mg PO DAILY@0630 07/16/23 08/14/23 08/13/23 History release quetiapine 50 mg tablet 25 mg PO BEDTIME 07/16/23 08/14/23 08/12/23 History famotidine 20 mg tablet 20 mg PO BID@0900,1200 08/14/23 08/14/23 08/13/23 History Physical Exam 2 Vital Signs and Narrative: Vital Signs: Last Vital Signs Temp 98.8 F 08/14/23 07:14 Pulse 84 08/14/23 07:14 Resp 20 08/14/23 07:14 BP 96/43 L 08/14/23 07:14 Pulse Ox 98 08/14/23 07:14 O2 Del Method Room Air 08/14/23 07:14 BMI result Body Mass Index 14.2 Constitutional: Alert, frail-looking, in no acute distress. Mental Status: Oriented to person, place and time. Eyes: Pupils are equal, round, and reactive to light. Ear, Nose, and Throat: Oropharynx clear, mucous membranes moist. Ears and nose without deformities. Trachea midline. Respiratory: Clear to auscultation bilaterally. No wheezing, rales, or rhonchi. Cardiovascular: S1, S2 regular. No murmurs, rubs, or gallops. Gastrointestinal: Abdomen soft, non-tender, non-distended. Normal bowel sounds. Neurologic: Cranial nerves II-XII are grossly intact bilaterally. No focal neurological deficits. Moves all extremities spontaneously. Skin: Warm, dry. Musculoskeletal: No cyanosis or clubbing. Extremities: No edema. Minor swelling around right ankle, nontender to palpation. Psychiatric: Normal mood and affect. Results Labs 08/14/23 01:08 08/14/23 01:08 Labs: Laboratory Results - last 24 hr 08/14/23 08/14/23 08/14/23 01:00 01:08 05:19 MCV 88.5 MCH 29.0 MCHC 32.8 RDW 14.3 Plt Count 326 MPV 8.6 L Immature Gran % (Auto) 0.5 H Neut % (Auto) 80.5 H Lymph % (Auto) 10.8 L [place] % (Auto) 7.1 Eos % (Auto) 0.8 Baso % (Auto) 0.3 Lymph # (Auto) 1.9 [place] # (Auto) 1.3 H Eos # (Auto) 0.2 Baso # (Auto) 0.1 Abs Immat Gran (auto) 0.08 H Absolute Neuts (auto) 14.2 H Absolute Nucleated RBC 0.000 Nucleated RBC % (auto) 0.0 Anion Gap 12 Estim Creat Clear Calc 31.8 Estimated GFR > 60 POC Glucose 61 Random Glucose 87 Lactic Acid Calcium 8.8 Total Bilirubin 0.5 AST 14 ALT 10 Alkaline Phosphatase 128 H Troponin I High Sens < 2.7 D C-Reactive Protein 8.31 H Total Protein 5.2 L Albumin 2.9 L Urine Color Yellow Urine Appearance Turbid Urine pH 8.0 Ur Specific [place] 1.020 Urine Protein 30 (1+) H Urine Glucose (UA) Negative Urine Ketones Trace Urine Blood Moderate (2+) H Urine Nitrite Negative Ur Leukocyte Esterase Moderate (2+) H Urine RBC >20 H Urine WBC 11-20 H Ur Squamous Epith Cells 0-2 Urine Bacteria None Seen Hyaline Casts 0-2 08/14/23 06:30 MCV MCH MCHC RDW Plt Count MPV Immature Gran % (Auto) Neut % (Auto) Lymph % (Auto) [place] % (Auto) Eos % (Auto) Baso % (Auto) Lymph # (Auto) [place] # (Auto) Eos # (Auto) Baso # (Auto) Abs Immat Gran (auto) Absolute Neuts (auto) Absolute Nucleated RBC Nucleated RBC % (auto) Anion Gap Estim Creat Clear Calc Estimated GFR POC Glucose Random Glucose Lactic Acid 0.8 Calcium Total Bilirubin AST ALT Alkaline Phosphatase Troponin I High Sens C-Reactive Protein Total Protein Albumin Urine Color Urine Appearance Urine pH Ur Specific [place] Urine Protein Urine Glucose (UA) Urine Ketones Urine Blood Urine Nitrite Ur Leukocyte Esterase Urine RBC Urine WBC Ur Squamous Epith Cells Urine Bacteria Hyaline Casts Imaging Radiologist's Impressions: Impressions Ankle X-Ray 08/14/23 02:19 IMPRESSION: Soft tissue swelling without acute osseous findings. Foot X-Ray 08/14/23 02:19 IMPRESSION: Soft tissue swelling without acute osseous findings. Head CT 08/14/23 04:01 IMPRESSION: No acute intracranial pathology. Abdomen/Pelvis CT 08/14/23 04:02 IMPRESSION: 1. Limited examination due to motion artifact. 2. Prominent enhancing, thick-walled appearance of the rectum and much of the sigmoid colon, as well as much of the descending and ascending colon. Overall appearance is suspicious for sequelae of colitis and proctitis. 3. Bilateral renal calculi without appreciable hydronephrosis. 4. Moderate compression deformity of T11, worsened compared to 07/16/2023. Assessment and Plan (1) Hypokalemia: Status: Acute (2) Colitis: Status: Acute Plan Pt is a 72-year-old female with a PMH significant for?moderate protein calorie malnutrition, stress induced cardiomyopathy with recovered EF, Raynaud's, GERD, and mood disorder who presents to the ED for evaluation after fall at home. Pt will be admitted to the hospital for treatment further evaluation of colitis. Colitis/proctitis Patient with diarrhea for past 1 and half weeks, abdominal pain since this morning CT showing evidence of colitis and proctitis Unclear etiology: Infectious versus inflamed Patient does not meet sepsis criteria: Leukocytosis, but no tachycardia, tachypnea, or fever; lactic acid 0.8 Will cover with Zosyn, started 08/14/2023 IVF: Lactated Ringer's Will check C diff, GI panel Clear liquid for now, advance as tolerated Hypokalemia, mild Potassium 3.1 at time of presentation Likely secondary to GI losses Received p.o. supplementation in ED Follow up potassium Fall at home Imaging negative for acute osseous injury PT evaluation Moderate protein calorie malnutrition Ensure supplementation t.i.d. Mood disorder Continue home meds HLD Continue HTN Continue metoprolol Abnormal EKG EKG with normal sinus rhythm in ST and T-wave abnormalities, including T-wave inversions in anterior leads Patient asymptomatic Continuous cardiac monitoring DNR/DNI Attending:?Dr. Nielson DVT Prophylaxis: Lovenox Pt will require a hospitalization of at least two nights for treatment and further evaluation of colitis/proctitis with?generalized weakness and fall at home. Given patient's weakened state, frailty, and risk for additional physical deconditioning, patient required hospitalization for administration of IV antibiotics, close monitoring of labs, and PT evaluation. Quality Stroke Does the patient have a stroke diagnosis?: No VTE Prior VTE?: No VTE Risk Level:: Medical - moderate - high VTE Device Contraindication: Treatment Not Indicated VTE Drug Contraindication: N/A - Med Ordered
[2023-08-14] MEDS: Lactated Ringers 1,000 ML 100 ML IVCONT ×2 (11:19→22:13)
--- NOTE | 2023-08-14 12:56 | PC.NURSE ---
pt repositioned back into bed, given call goddard w education on use, warm amy sj provided. pt requesting warm compresses for left eye d/t increased irritation/tearing, provider notified.
--- NOTE | 2023-08-14 16:31 | MHC.EDTECH ---
this pct assumed care of patient at 1500 ,vitals taken and patient belonings list done ,pt refused to change in hospital gown and refused to be reposition or boosted up in bed ,rn aware .
--- NOTE | 2023-08-14 17:39 | MHC.EDTECH ---
PATIENT WAS A 2 ASST TRANSFER TO BEDSIDE COMMODE ,VOID THEN BACK TO BED .
--- NOTE | 2023-08-14 17:39 | MHC.EDTECH ---
Assist durable medical equipment technician with transfer from bed to commode and from commode back to bed. Patient boost in bed and this durable medical equipment technician brought the patient two warm blankets.
--- NOTE | 2023-08-14 18:27 | MHC.EDTECH ---
Patient refused her dinner bryant castañeda aware .
[2023-08-14] MEDS: QUEtiapine Fumarate 25 MG TABLET PO (21:19)
[2023-08-14] MEDS: Atorvastatin Calcium 40 MG TABLET PO (21:19)
[2023-08-14] MEDS: LORazepam 1 MG TABLET PO (21:37)
[2023-08-15] MEDS: Temazepam 15 MG CAPSULE PO (01:07)
[2023-08-15 03:07] VITALS: RESP 18
[2023-08-15 03:38] VITALS: BP 150/69; PULSE 94; RESP 16; TEMP 36.9; O2SAT 94
[2023-08-15] MEDS: Piperacillin Sodium/Tazobactam 2.25 GM in 0.9 % Sodium Chloride 50 ML IV (03:40)
[2023-08-15 05:08] LABS: CDiff Gene PCR POSITIVE (Negative)
[2023-08-15 05:50] LABS: CDiff Toxin Positive (Negative)
[2023-08-15 05:51] LABS: CDIFF Internal ctrl Dots and bkg OK (V)
[2023-08-15 06:14] LABS: Hematocrit 29.6 % (37.0-47.0); Hemoglobin 9.6 g/dl (12.0-16.0); Mean Corpuscular HGB Conc 32.4 g/dl (31.0-35.0); Mean Corpuscular Hemoglobin 28.9 pg (27.0-33.0); Mean Corpuscular Volume 89.2 fL (80.0-98.0); Mean Platelet Volume 8.9 fL (9.4-12.3); Platelet Count 342 X10*3/uL (160-400); Red Blood Count 3.32 X10*6/uL (4.20-5.50); Red Cell Distribution Width 14.4 % (11.0-16.0); White Blood Count 19.3 X10*3/uL (4.8-10.8)
--- NOTE | 2023-08-15 06:19 | PC.NURSE ---
stool spec to lab earlier as ordered and received note at 0600 of CDiff Antigen and Toxin results to be positive. Hospitalist on duty alerted via [place] Text, Vancomycin Po ordered, precautions put in place, BRUSHING OPERATOR updated, and patient informed. Will continue to monitor
[2023-08-15 06:26] LABS: Anion Gap 8 (12-20); Blood Urea Nitrogen 14 mg/dL (9-16); Calcium 8.6 mg/dL (8.4-10.2); Carbon Dioxide 20 mmol/L (22-29); Chloride 115 mmol/L (96-108); Creatinine Clr Calc Pharmacy 49.2; Estimated Glomerular Filt Rate > 60; Glucose Random 108 mg/dL (60-115); Potassium 3.2 mmol/L (3.3-5.1); Sodium 140 mmol/L (135-145)
[2023-08-15] MEDS: Omeprazole 40 MG CAPSULE.DR PO (06:32)
[2023-08-15] MEDS: vancomycin HCL 125 MG CAPSULE PO (06:32)
[2023-08-15 07:30] VITALS: BP 105/58; PULSE 108; RESP 18; TEMP 37.6; O2SAT 95
[2023-08-15] MEDS: Metoprolol Succinate ER 25 MG TAB.ER.24H PO (08:34)
[2023-08-15] MEDS: Potassium Chloride ER 20 MEQ TAB.ER.PRT 40 MEQ PO (08:34)
[2023-08-15] MEDS: vancomycin HCL 125 MG CAPSULE 250 MG PO ×3 (08:34→21:00)
[2023-08-15] MEDS: 0.9 % Sodium Chloride Flush 3 ML SYRINGE IVFLUSH (08:35)
[2023-08-15] MEDS: Lactated Ringers 1,000 ML 100 ML IVCONT ×2 (08:36→18:31)
[2023-08-15] MEDS: LORazepam 1 MG TABLET PO (08:37)
--- NOTE | 2023-08-15 11:05 | HO.PM.IMPN ---
Subjective Subjective Date of Service: 08/15/23 Interval History: Denies abdominal pain, no nausea, no vomiting, appears anxious, provide history of insomnia, had no recurrent diarrhea since admission, no fevers, no chills, no lightheadedness, no dizziness. Review of Systems All other system reviewed and negative. Physical Exam Vital Signs: Vital Signs: Last Vital Signs Temp 99.6 F 08/15/23 07:30 Pulse 108 H 08/15/23 07:30 Resp 18 08/15/23 07:30 BP 105/58 L 08/15/23 07:30 Pulse Ox 95 08/15/23 07:30 O2 Del Method Room Air 08/15/23 07:30 BMI result Body Mass Index 19.3 Const: Other: General awake alert x3, frail looking, resting comfortably in no acute distress. Neck no JVD. CVS regular rate rhythm, Respiratory lungs clear to auscultation, no respiratory distress, no wheeze, no rhonchi. Gastrointestinal abdomen distended, firm, nontender, bowel sounds audible, no guarding , no rigidity. Extremities right lower extreme mild edema Neuro non focal Skin no rash Psych anxious Objective Data Active Medications Acetaminophen (Acetaminophen 325 Mg Tablet) 650 mg PO Q6H PRN PRN Reason: Pain, Mild (Pain Scale 1-3) Atorvastatin Calcium (Atorvastatin Calcium 40 Mg Tablet) 40 mg PO BEDTIME [facility] Last Admin: 08/14/23 21:19 Dose: 40 mg Documented By: JAYE Benzonatate (Benzonatate 100 Mg Capsule) 100 mg PO TID PRN PRN Reason: Cough Enoxaparin Sodium (Enoxaparin Sodium 40 Mg/0.4 Ml Syringe) 40 mg SUBCUT Q24H [facility] Last Admin: 08/14/23 15:05 Dose: Not Given Documented By: YUNIEL Non-Admin Reason: Patient Refused Lactated Ringer's (Lr) 1,000 mls @ 100 mls/hr IVCONT .Q10H [facility] Last Admin: 08/15/23 08:36 Dose: 100 mls/hr Documented By: AGNIESZKA Lorazepam (Lorazepam 1 Mg Tablet) 1 mg PO BID PRN PRN Reason: anxiety Last Admin: 08/15/23 08:37 Dose: 1 mg Documented By: AGNIESZKA Metoprolol Succinate (Metoprolol Succinate Er 25 Mg Tab.Er.24h) 25 mg PO DAILY [facility]; Protocol Last Admin: 08/15/23 08:34 Dose: 25 mg Documented By: AGNIESZKA Omeprazole (Omeprazole 40 Mg Capsule.) 40 mg PO DAILY@0630 [facility] Last Admin: 08/15/23 06:32 Dose: 40 mg Documented By: MELVINA Ondansetron HCl (Ondansetron Hcl 4 Mg/2 Ml Vial) 4 mg IVPUSH Q8H PRN PRN Reason: Nausea and Vomiting Quetiapine Fumarate (Quetiapine Fumarate 25 Mg Tablet) 25 mg PO BEDTIME [facility] Last Admin: 08/14/23 21:19 Dose: 25 mg Documented By: JAYE Sodium Chloride (0.9 % Sodium Chloride Flush 3 Ml Syringe) 3 ml IVFLUSH QSHIFT [facility] Last Admin: 08/15/23 08:35 Dose: 3 ml Documented By: AGNIESZKA Temazepam (Temazepam 15 Mg Capsule) 15 mg PO BEDTIME PRN PRN Reason: sleep Last Admin: 08/15/23 01:07 Dose: 15 mg Documented By: MELVINA Vancomycin HCl (Vancomycin Hcl 125 Mg Capsule) 250 mg PO Q6H [facility] Last Admin: 08/15/23 08:34 Dose: 250 mg Documented By: AGNIESZKA Labs 08/15/23 05:54 08/15/23 05:54 Labs: Laboratory Results - last 24 hr 08/15/23 08/15/23 04:07 05:54 MCV 89.2 MCH 28.9 MCHC 32.4 RDW 14.4 Plt Count 342 MPV 8.9 L Absolute Nucleated RBC 0.000 Nucleated RBC % (auto) 0.0 Anion Gap 8 L Estim Creat Clear Calc 49.2 Estimated GFR > 60 Random Glucose 108 Calcium 8.6 C. difficile Tox B Gene POSITIVE A* C. difficile Toxin A&B Positive A* C. difficile Interpret SEE NOTE Microbiology Microbiology Results: Microbiology 08/14/23 Unknown Urine Culture - Final Urine Catheterized - Lou Catheter No growth. 08/14/23 06:30 Blood Culture - Preliminary Blood - Venous No growth after 24 hours. 08/14/23 06:30 Blood Culture - Preliminary Blood - Venous No growth after 24 hours. Assessment and Plan (1) Hypokalemia: Status: Acute (2) Leukocytosis: Status: Acute (3) C. difficile colitis: Status: Acute Plan 72-year-old female with a PMH significant for?moderate protein calorie malnutrition, stress induced cardiomyopathy with recovered EF, Raynaud's, GERD, and mood disorder who presents to the ED for evaluation after fall at home. Pt will be admitted to the hospital for treatment further evaluation of colitis. Colitis/proctitis C diff toxin positive, will DC IV vancomycin and Zosyn Placed on vancomycin 250 mg q.6 hours Continue IV fluid close clinical follow-up Will advanced diet to bland, low-fiber, lactose-free Acute mild Hypokalemia, Likely secondary to GI losses, will replete and follow labs Fall at home likely mechanical Imaging negative for acute osseous injury Likely due to polypharmacy, will check orthostatic blood pressures, minimize anxiolytics at night Moderate protein calorie malnutrition Ensure supplementation b.i.d. Mood disorder Continue home meds, change Ativan to 0.5 mg at a.m. and noon and continue temazepam at night as needed with Seroquel HLD Continue Lipitor follow lipid profile HTN Soft BP hold metoprolol and follow blood pressure closely Abnormal EKG EKG with normal sinus rhythm, ST and T-wave abnormalities, including T-wave inversions in anterior leads Patient asymptomatic, normal troponin, chronically abnormal EKG. DNR/DNI DVT Prophylaxis: Lovenox Pt will require continued inpatient hospitalization for treatment of C diff colitis, close follow-up of electrolytes, PT eval due to recurrent falls and medication adjustment. Quality Stroke Does the patient have a stroke diagnosis?: No VTE Prior VTE?: No VTE Risk Level:: Medical - moderate - high VTE Device Contraindication: Treatment Not Indicated VTE Drug Contraindication: N/A - Med Ordered
[2023-08-15 11:22] VITALS: BP 110/55; BP 115/56; BP 130/60; PULSE 92; PULSE 96; PULSE 97
[2023-08-15] MEDS: Enoxaparin Sodium 40 MG/0.4 ML SYRINGE SUBCUT (13:07)
[2023-08-15 15:01] LABS: Adenovirus F 40/41 Not Detected (Not Detect.); Astrovirus Not Detected (Not Detect.); Campylobacter Not Detected (Not Detect.); Cryptosporidium Not Detected (Not Detect.); Cyclospora cayetanensis Not Detected (Not Detect.); E. coli EAEC Not Detected (Not Detect.); E. coli EPEC Not Detected (Not Detect.); E. coli ETEC Not Detected (Not Detect.); E. coli STEC Not Detected (Not Detect.); Entamoeba histolytica Not Detected (Not Detect.); Giardia lamblia Not Detected (Not Detect.); Norovirus GI/GII Not Detected (Not Detect.); Plesiomonas shigelloides Not Detected (Not Detect.); Rotavirus A Not Detected (Not Detect.); Salmonella Not Detected (Not Detect.); Sapovirus Not Detected (Not Detect.); Shigella sp./EIEC Not Detected (Not Detect.); Vibrio Not Detected (Not Detect.); Vibrio Cholerae Not Detected (Not Detect.); Yersinia enterocolitica Not Detected (Not Detect.)
[2023-08-15 15:17] VITALS: BP 103/55; PULSE 88; RESP 18; TEMP 37.1
--- NOTE | 2023-08-15 16:00 | MHC.CM.PN ---
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
[2023-08-15 20:00] VITALS: BP 128/64; PULSE 94; RESP 16; TEMP 36.6; O2SAT 99
[2023-08-15] MEDS: Atorvastatin Calcium 40 MG TABLET PO (21:01)
[2023-08-15] MEDS: QUEtiapine Fumarate 25 MG TABLET PO (21:01)
[2023-08-15] MEDS: LORazepam 0.5 MG TABLET PO (21:05)
[2023-08-16] MEDS: Temazepam 15 MG CAPSULE PO (01:17)
[2023-08-16] MEDS: vancomycin HCL 125 MG CAPSULE 250 MG PO ×4 (01:17→21:40)
[2023-08-16] MEDS: Lactated Ringers 1,000 ML 100 ML IVCONT ×3 (03:24→21:38)
[2023-08-16 03:53] VITALS: BP 113/59; PULSE 90; RESP 16; TEMP 36.2; O2SAT 93
[2023-08-16 04:29] LABS: Appearance Urine Clear; Color Urine Yellow; Glucose Urine UA Negative (Negative); Leukocyte Esterase Urine Small (1+) (Negative); Nitrite Urine Negative (Negative); PH 7.5 (5.0-9.0); Specific Gravity - Urine 1.015 (1.005-1.025); UMIC TRIGGER UA YES; Urine Blood Moderate (2+) (Negative); Urine Ketones Negative (Negative); Urine Protein 30 (1+) mg/dL (Neg-Trace)
[2023-08-16 04:34] LABS: Bacteria Urine None Seen (None Seen); Hyaline Casts Urine 0-2 /LPF (0-2); RBC Urine >20 /HPF (0-2); Squamous Epithelial Cell Urine 0-2 /HPF (0-2); WBC Urine 21-50 /HPF (0-5)
[2023-08-16] MEDS: Omeprazole 40 MG CAPSULE.DR PO (05:20)
[2023-08-16 05:41] LABS: Hematocrit 26.8 % (37.0-47.0); Hemoglobin 8.8 g/dl (12.0-16.0); Mean Corpuscular HGB Conc 32.8 g/dl (31.0-35.0); Mean Corpuscular Hemoglobin 28.9 pg (27.0-33.0); Mean Corpuscular Volume 88.2 fL (80.0-98.0); Mean Platelet Volume 8.7 fL (9.4-12.3); Platelet Count 326 X10*3/uL (160-400); Red Blood Count 3.04 X10*6/uL (4.20-5.50); Red Cell Distribution Width 14.4 % (11.0-16.0); White Blood Count 20.4 X10*3/uL (4.8-10.8)
[2023-08-16 06:04] LABS: Anion Gap 8 (12-20); Blood Urea Nitrogen 13 mg/dL (9-16); Calcium 8.4 mg/dL (8.4-10.2); Carbon Dioxide 20 mmol/L (22-29); Chloride 114 mmol/L (96-108); Cholesterol 123 mg/dL (<200); Creatinine Clr Calc Pharmacy 58.2; Estimated Glomerular Filt Rate > 60; Glucose Random 95 mg/dL (60-115); HDL Cholesterol 40 mg/dL (>40); LDL Cholesterol Calculated 71 mg/dL (<100); Potassium 3.3 mmol/L (3.3-5.1); Sodium 139 mmol/L (135-145); Triglycerides 62 mg/dL (<150)
[2023-08-16 07:08] VITALS: BP 93/54; PULSE 88; RESP 18; TEMP 36.2; O2SAT 93
--- NOTE | 2023-08-16 10:32 | PC.NURSE ---
0810: This RN in pt room for morning assessment and po medications. Breakfast tray in front of pt. Pt asked this RN for more sugar and creamers for coffee as well as help cutting up toast. This RN asked kitchen to obtain creamers from kitchen as not stocked on our unit. This RN cut pt toast up for her as well as obtaining more sugar from kitchen on unit. Pt ate some of her breakfast and this RN removed tray from room. This RN inquired on leaving one coffee on table as her creamers did not arrive yet from kitchen. Pt stated No, I don't want it anymore. You can take it away 0930: Dr Nielson in to speak with pt. Pt asked about having a UTI. Dr Nielson asked this RN to check chart. Urine culture showing no growth. Pt notified by Dr Nielson of no UTI at this time. 1000: Pt home ASBESTOS WORKER in room with pt. Asked for TAX AUDIT MANAGER to come to assist pt with am care. TAX AUDIT MANAGER Teagan in to do am care with pt. Pt refused to get OOB at this time. ASBESTOS WORKER still present in room for morning care.
--- NOTE | 2023-08-16 11:16 | P.PNIM_ITS ---
Subjective Subjective Date of Service: 08/16/23 Interval History: Complaining of loose stools, denies lightheadedness, no dizziness, noted to have soft blood pressure 93/54 this morning with potassium of 3.3 denies nausea, no vomiting, no abdominal pain, no fevers, no chills, tolerating diet. Review of Systems All other system reviewed and negative. Physical Exam 2 Vital Signs: Vital Signs: Last Vital Signs Temp 97.2 F 08/16/23 07:08 Pulse 88 08/16/23 07:08 Resp 18 08/16/23 07:08 BP 93/54 L 08/16/23 07:08 Pulse Ox 93 08/16/23 07:08 O2 Del Method Room Air 08/16/23 07:08 BMI result Body Mass Index 19.3 Const: Other: General awake alert x3, frail looking, resting comfortably in no acute distress. Neck no JVD. CVS regular rate rhythm, Respiratory lungs clear to auscultation, no respiratory distress, no wheeze, no rhonchi. Gastrointestinal abdomen distended, firm(as per patient at baseline), nontender, bowel sounds audible, no guarding , no rigidity. Extremities right lower extreme mild edema Neuro non focal Skin no rash Psych anxious Objective Data Active Medications Acetaminophen (Acetaminophen 325 Mg Tablet) 650 mg PO Q6H PRN PRN Reason: Pain, Mild (Pain Scale 1-3) Atorvastatin Calcium (Atorvastatin Calcium 40 Mg Tablet) 40 mg PO BEDTIME [facility] Last Admin: 08/15/23 21:01 Dose: 40 mg Documented By: JANELL Benzonatate (Benzonatate 100 Mg Capsule) 100 mg PO TID PRN PRN Reason: Cough Enoxaparin Sodium (Enoxaparin Sodium 40 Mg/0.4 Ml Syringe) 40 mg SUBCUT Q24H [facility] Last Admin: 08/15/23 13:07 Dose: 40 mg Documented By: AGNIESZKA Lactated Ringer's (Lr) 1,000 mls @ 100 mls/hr IVCONT .Q10H [facility] Last Admin: 08/16/23 03:24 Dose: 100 mls/hr Documented By: JANELL Lorazepam (Lorazepam 0.5 Mg Tablet) 0.5 mg PO BID PRN PRN Reason: anxiety Last Admin: 08/15/23 21:05 Dose: 0.5 mg Documented By: JANELL Metoprolol Succinate (Metoprolol Succinate Er 25 Mg Tab.Er.24h) 25 mg PO DAILY [facility]; Protocol Last Admin: 08/16/23 08:28 Dose: Not Given Documented By: RUTHIE Non-Admin Reason: Decreased Blood Pressure Omeprazole (Omeprazole 40 Mg Capsule.Dr) 40 mg PO DAILY@0630 [facility] Last Admin: 08/16/23 05:20 Dose: 40 mg Documented By: JANELL Ondansetron HCl (Ondansetron Hcl 4 Mg/2 Ml Vial) 4 mg IVPUSH Q8H PRN PRN Reason: Nausea and Vomiting Quetiapine Fumarate (Quetiapine Fumarate 25 Mg Tablet) 25 mg PO BEDTIME [facility] Last Admin: 08/15/23 21:01 Dose: 25 mg Documented By: JANELL Sodium Chloride (0.9 % Sodium Chloride Flush 3 Ml Syringe) 3 ml IVFLUSH QSHIFT [facility] Last Admin: 08/16/23 08:10 Dose: Not Given Documented By: RUTHIE Non-Admin Reason: IV Running Temazepam (Temazepam 15 Mg Capsule) 15 mg PO BEDTIME PRN PRN Reason: sleep Last Admin: 08/16/23 01:17 Dose: 15 mg Documented By: JANELL Vancomycin HCl (Vancomycin Hcl 125 Mg Capsule) 250 mg PO Q6H [facility] Last Admin: 08/16/23 08:10 Dose: 250 mg Documented By: RUTHIE Labs 08/16/23 05:19 08/16/23 05:19 Labs: Laboratory Results - last 24 hr 08/15/23 08/16/23 08/16/23 04:07 02:38 05:19 MCV 88.2 MCH 28.9 MCHC 32.8 RDW 14.4 Plt Count 326 MPV 8.7 L Absolute Nucleated RBC 0.000 Nucleated RBC % (auto) 0.0 Anion Gap 8 L Estim Creat Clear Calc 58.2 Estimated GFR > 60 Random Glucose 95 Calcium 8.4 Triglycerides 62 Cholesterol 123 LDL Cholesterol, Calc 71 HDL Cholesterol 40 L Urine Color Yellow Urine Appearance Clear Urine pH 7.5 Ur Specific [place] 1.015 Urine Protein 30 (1+) H Urine Glucose (UA) Negative Urine Ketones Negative Urine Blood Moderate (2+) H Urine Nitrite Negative Ur Leukocyte Esterase Small (1+) H Urine RBC >20 H Urine WBC 21-50 H Ur Squamous Epith Cells 0-2 Urine Bacteria None Seen Hyaline Casts 0-2 Stl C. cayetanensis PCR Not Detected Stool Rotavirus A PCR Not Detected Stl Adenov F 40/41 PCR Not Detected Stool Astrovirus (PCR) Not Detected Stool Campylobacter PCR Not Detected Stool Cryptosporidium PCR Not Detected Stl Sh Tox Pr E STEC PCR Not Detected Stool E coli O157 PCR Not applicable Stl Enterotoxigenic E PCR Not Detected Stool EPEC (PCR) Not Detected Stool EAEC (PCR) Not Detected Stl E. histolytica PCR Not Detected Stool Giardia Lamblia PCR Not Detected Stl P. shigelloides PCR Not Detected Stool Salmonella PCR Not Detected Stool Sapovirus (PCR) Not Detected Stl Shigella/EIEC PCR Not Detected St Y.enterocolitica PCR Not Detected Stool Vibrio (PCR) Not Detected Stl Vibrio cholerae PCR Not Detected Stl Norovirus GI/GII PCR Not Detected Microbiology Microbiology Results: Microbiology 08/14/23 06:30 Blood Culture - Preliminary Blood - Venous No growth after 48 hours. 08/14/23 06:30 Blood Culture - Preliminary Blood - Venous No growth after 48 hours. 08/14/23 Unknown Urine Culture - Final Urine Catheterized - Lou Catheter No growth. Assessment and Plan (1) Hypokalemia: Status: Acute (2) Leukocytosis: Status: Acute (3) C. difficile colitis: Status: Acute Plan 72-year-old female with a PMH significant for?moderate protein calorie malnutrition, stress induced cardiomyopathy with recovered EF, Raynaud's, GERD, and mood disorder who presents to the ED for evaluation after fall at home. Pt will be admitted to the hospital for treatment further evaluation of colitis. Acute C diff colitis proctitis on vancomycin 250 mg q.6 hours started on August 14 day2 Persistent leukocytosis, no fevers, no chills Continue IV fluid close clinical follow-up Continue bland, low-fiber diet, lactose-free Acute mild Hypokalemia, Likely secondary to GI losses, will replete and follow labs Fall at home likely mechanical Imaging negative for acute osseous injury Likely due to polypharmacy, normal orthostatic blood pressures, minimize anxiolytics at night. Seen by Physical therapy they recommend short-term rehab however patient declined rehab with encourage out of bed to chair Moderate protein calorie malnutrition Ensure supplementation b.i.d. Mood disorder Continue home meds, change Ativan to 0.5 mg at a.m. and noon and continue temazepam at night as needed with Seroquel HLD on Lipitor , total cholesterol 123 LDL 71 triglycerides 62 HTN Soft BP hold metoprolol , continue IV fluids and follow blood pressure closely Abnormal EKG EKG with normal sinus rhythm, ST and T-wave abnormalities, including T-wave inversions in anterior leads Patient asymptomatic, normal troponin, chronically abnormal EKG. DNR/DNI DVT Prophylaxis: Lovenox Pt will require continued inpatient hospitalization for treatment of C diff colitis, close follow-up of electrolytes, and safe disposition Quality Stroke Does the patient have a stroke diagnosis?: No VTE Prior VTE?: No VTE Risk Level:: Medical - moderate - high VTE Device Contraindication: Treatment Not Indicated VTE Drug Contraindication: N/A - Med Ordered
--- NOTE | 2023-08-16 12:10 | PC.NURSE ---
1145: Pt agreeable to get OOB to recliner. Assisted by SAFE AND VAULT INSTALLER into chair. All needs within pt reach. 1150: Pt ringing call goddard to get back to bed. Stating I have been in the chair for 45 minutes and want to get BTB Explained to pt that she has been in the chair for only 5 minutes. Pt insisting on getting BTB. SAFE AND VAULT INSTALLER assisted pt back to bed. All needs in reach
[2023-08-16] MEDS: Enoxaparin Sodium 40 MG/0.4 ML SYRINGE SUBCUT (12:16)
--- NOTE | 2023-08-16 13:54 | MHC.CM.PN ---
IMM 08/18/23 Per MD rounds no dc today. 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 Patient will need assist with transportation, [employer].
[2023-08-16 15:02] VITALS: BMI 15.6
[2023-08-16 15:22] VITALS: BP 107/54; PULSE 86; RESP 16; TEMP 36.2; O2SAT 96
--- NOTE | 2023-08-16 15:29 | PC.NURSE ---
Pt questioning why she has been receiving regular pudding and not lactose free. This RN verified with RENAE Candelaria that she has not received any on either of her meal trays. Confirmed with Teagan and VICTOR HUGO, this RN notified pt that she did not but she did receive lactose free ice cream. This RN asked April from nutrition to come speak with pt. This RN, April, VICTOR HUGO, and Kelsey Berg present to discuss options for food to eat at meals and also to take medications with. Current plan, pt wishes to have her medications with room temperature jello or applesauce. Pt also refusing to order anything for dinner stating I don't want anything. I don't eat dinner.
--- NOTE | 2023-08-16 15:40 | PC.NURSE ---
Director Shereen Gross in to speak with pt
--- NOTE | 2023-08-16 15:52 | PC.NURSE ---
On top of morning ADL's, pt washed her face 6 times and brushed her teeth twice this shift.
--- NOTE | 2023-08-16 16:00 | MHC.CLN ---
NUTRITION DIET=REGULAR, BLAND, LOW FIBER, LACTOSE FREE. PATIENT WITH C-DIFF COLITIS, REPORTING EPISODES OF DIARRHEA X 1-1.5 WEEKS PRIOR TO ADM. MET WITH PATIENT WITH NURSE, DINING SERVICES AMBASSADOR AND PATIENT EXPERIENCE MEDICAL I D SALES PRESENT. PATIENT DISLIKES ENSURE SUPPLEMENT. DOES NOT WANT ENSURE CLEAR OR GELATEIN SUPPLEMENT. LIKES ROOM TEMPERATURE JELLO AND ROOM TEMPERATURE APPLESAUCE. DOES NOT EAT SUPPER AT HOME AND DOES NOT WANT TO ORDER SUPPER MEAL THIS EVENING. WEIGHT DISCREPANCY UPON ADMISSION. PATIENT REPORTS USUAL WEIGHT AT 80#. USED THAT WEIGHT TO ESTIMATE NUTRITIONAL NEEDS. QUALIFIES MODERATELY MALNOURISHED IN THE CONTEXT OF CHRONIC ILLNESS. ENCOURAGE INTAKE AT MEALS AND SNACKS ABLE. SEE CLINICAL NUTRITION ASSESSMENT 08/16/23.
--- NOTE | 2023-08-16 17:46 | PC.NURSE ---
Pt assisted to commode by CLEANER AND PREPARER. Voided and had small soft BM. Assisted BTB. Offered dinner again but pt continues to decline. Offered ativan for anxiety but pt declined and stated she wanted to save it for tonight
[2023-08-16 19:51] VITALS: BP 119/59; PULSE 88; RESP 16; TEMP 37.1; O2SAT 94
[2023-08-16] MEDS: QUEtiapine Fumarate 25 MG TABLET PO (21:39)
[2023-08-16] MEDS: LORazepam 0.5 MG TABLET PO (21:40)
[2023-08-16] MEDS: Atorvastatin Calcium 40 MG TABLET PO (21:40)
[2023-08-17] MEDS: vancomycin HCL 125 MG CAPSULE 250 MG PO ×4 (00:59→19:47)
[2023-08-17] MEDS: Temazepam 15 MG CAPSULE PO (00:59)
--- NOTE | 2023-08-17 03:38 | PC.NURSE ---
This RN assumed care of pt at 19:00. Pt AxOx3, forgetful at times. Pt 1 assist OOB with walker to bedside commode. During administration of medications, pt requested to take medications whole with lactose free ice cream.Medications given to pt per MAR. VSS. Warm blankets were given to pt, bed in lowest position with bed alarm intact. Will continue to monitor pt.
[2023-08-17 03:45] VITALS: BP 128/65; PULSE 89; RESP 16; TEMP 36.3; O2SAT 91
--- NOTE | 2023-08-17 03:47 | PC.NURSE ---
Approximately around 23:00, pt complained of pain/discomfort to bladder. Pt appeared anxious, crying to this RN about discomfort to bladder and unable to void on her own, requesting to be straight cath right away. This RN told the pt that she has to be bladder scan first and see if shes retaining urine. Pt was bladder scan for 459ml, and upon assessment, pt's abdomen was firm and distended. MD Cunningham was notified of the pt's discomfort and the bladder scan results. Straight cath was ordered per . Pt was straight cath for 400ml dark urine. Afterwards, pt was bladder scan again and had 60ml. Will continue to monitor pt's urine output.
[2023-08-17 05:43] LABS: Hemoglobin 9.4 g/dl (12.0-16.0); Mean Corpuscular HGB Conc 33.6 g/dl (31.0-35.0); Mean Corpuscular Hemoglobin 29.6 pg (27.0-33.0); Mean Corpuscular Volume 88.1 fL (80.0-98.0); Mean Platelet Volume 8.9 fL (9.4-12.3); Platelet Count 340 X10*3/uL (160-400); Red Blood Count 3.18 X10*6/uL (4.20-5.50); Red Cell Distribution Width 14.6 % (11.0-16.0)
[2023-08-17 05:57] LABS: Anion Gap 8 (12-20); Blood Urea Nitrogen 11 mg/dL (9-16); Calcium 8.6 mg/dL (8.4-10.2); Carbon Dioxide 21 mmol/L (22-29); Chloride 114 mmol/L (96-108); Creatinine Clr Calc Pharmacy 47.9; Estimated Glomerular Filt Rate > 60; Glucose Random 96 mg/dL (60-115); Sodium 140 mmol/L (135-145)
[2023-08-17] MEDS: Omeprazole 40 MG CAPSULE.DR PO (06:31)
[2023-08-17] MEDS: Lactated Ringers 1,000 ML 100 ML IVCONT ×2 (06:36→17:31)
[2023-08-17 07:38] VITALS: BP 103/58; PULSE 84; RESP 14; TEMP 36.4; O2SAT 93
[2023-08-17] MEDS: Potassium Chloride ER 20 MEQ TAB.ER.PRT 40 MEQ PO (09:22)
--- NOTE | 2023-08-17 10:23 | HO.PM.IMPN ---
Subjective Subjective Date of Service: 08/17/23 Interval History: Feeling better this morning denies nausea, no vomiting, no abdominal pain, less frequent bowel, four in last 24 hours, eating 75-100% of meals, requesting for coffee, no fevers no chills no shortness of breath no other acute issues Overnight. Review of Systems All other system reviewed and negative. Physical Exam Vital Signs: Vital Signs: Last Vital Signs Temp 97.5 F 08/17/23 07:38 Pulse 84 08/17/23 07:38 Resp 14 08/17/23 07:38 BP 103/58 L 08/17/23 07:38 Pulse Ox 93 08/17/23 07:38 O2 Del Method Room Air 08/17/23 07:38 BMI result Body Mass Index 15.6 Const: Other: General awake alert x3, frail looking, resting comfortably in no acute distress. Neck no JVD. CVS regular rate rhythm, Respiratory lungs clear to auscultation, no respiratory distress, no wheeze, no rhonchi. Gastrointestinal abdomen distended, soft, non tender, bowel sounds audible, no guarding , no rigidity. Extremities right lower extreme mild edema Neuro non focal Skin no rash Psych anxious Objective Data Active Medications Acetaminophen (Acetaminophen 325 Mg Tablet) 650 mg PO Q6H PRN PRN Reason: Pain, Mild (Pain Scale 1-3) Atorvastatin Calcium (Atorvastatin Calcium 40 Mg Tablet) 40 mg PO BEDTIME [facility] Last Admin: 08/16/23 21:40 Dose: 40 mg Documented By: JANELL Benzonatate (Benzonatate 100 Mg Capsule) 100 mg PO TID PRN PRN Reason: Cough Enoxaparin Sodium (Enoxaparin Sodium 40 Mg/0.4 Ml Syringe) 40 mg SUBCUT Q24H [facility] Last Admin: 08/16/23 12:16 Dose: 40 mg Documented By: RUTHIE Lactated Ringer's (Lr) 1,000 mls @ 100 mls/hr IVCONT .Q10H [facility] Last Admin: 08/17/23 06:36 Dose: 100 mls/hr Documented By: JANELL Lorazepam (Lorazepam 0.5 Mg Tablet) 0.5 mg PO BID PRN PRN Reason: anxiety Last Admin: 08/16/23 21:40 Dose: 0.5 mg Documented By: JANELL Metoprolol Succinate (Metoprolol Succinate Er 25 Mg Tab.Er.24h) 25 mg PO DAILY [facility]; Protocol Last Admin: 08/16/23 08:28 Dose: Not Given Documented By: RUTHIE Non-Admin Reason: Decreased Blood Pressure Omeprazole (Omeprazole 40 Mg Capsule.Dr) 40 mg PO DAILY@0630 [facility] Last Admin: 08/17/23 06:31 Dose: 40 mg Documented By: JANELL Ondansetron HCl (Ondansetron Hcl 4 Mg/2 Ml Vial) 4 mg IVPUSH Q8H PRN PRN Reason: Nausea and Vomiting Quetiapine Fumarate (Quetiapine Fumarate 25 Mg Tablet) 25 mg PO BEDTIME [facility] Last Admin: 08/16/23 21:39 Dose: 25 mg Documented By: JANELL Sodium Chloride (0.9 % Sodium Chloride Flush 3 Ml Syringe) 3 ml IVFLUSH QSHIFT [facility] Last Admin: 08/17/23 09:28 Dose: Not Given Documented By: DEBI Non-Admin Reason: IV Running Temazepam (Temazepam 15 Mg Capsule) 15 mg PO BEDTIME PRN PRN Reason: sleep Last Admin: 08/17/23 00:59 Dose: 15 mg Documented By: JANELL Vancomycin HCl (Vancomycin Hcl 125 Mg Capsule) 250 mg PO Q6H [facility] Last Admin: 08/17/23 09:22 Dose: 250 mg Documented By: DEBI Labs 08/17/23 05:19 08/17/23 05:19 Labs: Laboratory Results - last 24 hr 08/17/23 05:19 MCV 88.1 MCH 29.6 MCHC 33.6 RDW 14.6 Plt Count 340 MPV 8.9 L Absolute Nucleated RBC 0.000 Nucleated RBC % (auto) 0.0 Anion Gap 8 L Estim Creat Clear Calc 47.9 Estimated GFR > 60 Random Glucose 96 Calcium 8.6 Microbiology Microbiology Results: Microbiology 08/14/23 06:30 Blood Culture - Preliminary Blood - Venous No growth after 48 hours. 08/14/23 06:30 Blood Culture - Preliminary Blood - Venous No growth after 48 hours. Assessment and Plan (1) Hypokalemia: Status: Acute (2) Leukocytosis: Status: Acute (3) C. difficile colitis: Status: Acute Plan 72-year-old female with a PMH significant for?moderate protein calorie malnutrition, stress induced cardiomyopathy with recovered EF, Raynaud's, GERD, and mood disorder who presents to the ED for evaluation after fall at home. Pt will be admitted to the hospital for treatment further evaluation of colitis. Acute C diff colitis proctitis No abdominal pain, diarrhea slowing down. on vancomycin 250 mg q.6 hours started on August 14, day 3/ Persistent leukocytosis, WBC improved from 20 .4 to 19, no fevers, no chills on IV fluid , encourage by mouth intake Continue low-fiber diet, lactose-free Acute mild Hypokalemia, Likely secondary to GI losses, will replete and follow labs Fall at home likely mechanical Imaging negative for acute osseous injury Likely due to polypharmacy, normal orthostatic blood pressures, minimize anxiolytics at night. Seen by Physical therapy they recommend short-term rehab however patient declined rehab with encourage out of bed to chair and ambulation with staff. Moderate protein calorie malnutrition Ensure supplementation b.i.d. Mood disorder Continue home meds, change Ativan to 0.5 mg at a.m. and noon and continue temazepam at night as needed, with Seroquel. HLD on Lipitor , total cholesterol 123 LDL 71 triglycerides 62 HTN Soft BP hold metoprolol , continue IV fluids and follow blood pressure closely Abnormal EKG EKG with normal sinus rhythm, ST and T-wave abnormalities, including T-wave inversions in anterior leads Patient asymptomatic, normal troponin, chronically abnormal EKG. DNR/DNI DVT Prophylaxis: Lovenox Pt will require continued inpatient hospitalization for treatment of C diff colitis, close follow-up of electrolytes, and safe disposition Quality Stroke Does the patient have a stroke diagnosis?: No VTE Prior VTE?: No VTE Risk Level:: Medical - moderate - high VTE Device Contraindication: Treatment Not Indicated VTE Drug Contraindication: N/A - Med Ordered
[2023-08-17] MEDS: Enoxaparin Sodium 40 MG/0.4 ML SYRINGE SUBCUT (13:51)
[2023-08-17] MEDS: LORazepam 0.5 MG TABLET PO ×2 (13:51→22:46)
[2023-08-17 16:01] VITALS: BP 117/65; PULSE 90; RESP 18; TEMP 36.2; O2SAT 95
[2023-08-17 19:35] VITALS: BP 134/68; PULSE 90; RESP 18; TEMP 37; O2SAT 95
[2023-08-17] MEDS: Atorvastatin Calcium 40 MG TABLET PO (19:47)
[2023-08-17] MEDS: QUEtiapine Fumarate 25 MG TABLET PO (19:47)
[2023-08-17] MEDS: Ibuprofen 600 MG TABLET PO (22:46)
[2023-08-18] MEDS: Temazepam 15 MG CAPSULE PO (02:26)
[2023-08-18] MEDS: vancomycin HCL 125 MG CAPSULE 250 MG PO ×4 (02:26→20:34)
[2023-08-18] MEDS: Lactated Ringers 1,000 ML 100 ML IVCONT (02:35)
--- NOTE | 2023-08-18 02:58 | PC.NURSE ---
Pt unable to void on her own, bladder scanned pt for 429 ml. Pt has been straight cath'd [address] Cunningham notified, mcdonald catheter ordered and placed, will continue to monitor.
[2023-08-18 03:32] VITALS: BP 109/63; PULSE 76; RESP 18; TEMP 36.8; O2SAT 94
[2023-08-18] MEDS: Omeprazole 40 MG CAPSULE.DR PO (05:42)
[2023-08-18 06:38] LABS: Hematocrit 28.5 % (37.0-47.0); Hemoglobin 9.3 g/dl (12.0-16.0); Mean Corpuscular HGB Conc 32.6 g/dl (31.0-35.0); Mean Corpuscular Hemoglobin 28.8 pg (27.0-33.0); Mean Corpuscular Volume 88.2 fL (80.0-98.0); Mean Platelet Volume 9.4 fL (9.4-12.3); Platelet Count 379 X10*3/uL (160-400); Red Blood Count 3.23 X10*6/uL (4.20-5.50); Red Cell Distribution Width 14.6 % (11.0-16.0); White Blood Count 11.1 X10*3/uL (4.8-10.8)
[2023-08-18 06:48] LABS: Anion Gap 9 (12-20); Blood Urea Nitrogen 9 mg/dL (9-16); Calcium 8.5 mg/dL (8.4-10.2); Carbon Dioxide 20 mmol/L (22-29); Chloride 113 mmol/L (96-108); Creatinine Clr Calc Pharmacy 53.3; Estimated Glomerular Filt Rate > 60; Glucose Random 83 mg/dL (60-115); Potassium 3.2 mmol/L (3.3-5.1); Sodium 139 mmol/L (135-145)
[2023-08-18 07:22] VITALS: BP 111/58; PULSE 72; RESP 16; TEMP 36.3; O2SAT 94
[2023-08-18] MEDS: LORazepam 0.5 MG TABLET PO ×2 (08:23→22:04)
[2023-08-18 09:07] LABS: C Reactive Protein 7.18 mg/dL (< or = 0.50); Magnesium 1.7 mg/dL (1.6-2.6)
--- NOTE | 2023-08-18 10:42 | MHC.CM.PN ---
Addendum entered by Yesenia Gerard 08/18/23 11:03: IMM 08/18/23 correction to date IMM Original Note: IMM 08/17/23 Per MD rounds no discharge today. DC is anticipated tomorrow with VNA per MD. Met with patient to obtain preference of VNA. The patient declined home services. MD notified of refusal. A referral will be sent to [facility] as a heads up in case pt changes her mind. 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 If patient agress, [facility] for home services.Patient will need a ssit with transport home.
--- NOTE | 2023-08-18 11:07 | MHC.CLN ---
F/U DIET=REGULAR, LOW FIBER, LACTOSE FREE. PATIENT WITH C-DIFF COLITIS WITH DIARRHEA IMPROVING. DINING SERVICES AWARE OF FOOD PREFERENCES. DISLIKES NUTRITIONAL SUPPLEMENTS AND DOES NOT WANT. INTAKE AT BREAKFAST AND LUNCH APPEARS GOOD. USUAL MEAL PATTERN AT HOME IS DOES NOT EAT DINNER. ENCOURAGE INTAKE AT MEALS AND SNACKS ABLE.
[2023-08-18] MEDS: Potassium Chloride ER 20 MEQ TAB.ER.PRT 40 MEQ PO (12:04)
[2023-08-18] MEDS: Enoxaparin Sodium 40 MG/0.4 ML SYRINGE SUBCUT (12:04)
--- NOTE | 2023-08-18 12:57 | P.PNIM_ITS ---
Subjective Subjective Date of Service: 08/18/23 Interval History: still having diarrhea, feels weak no abd pain no fever Review of Systems Review of Systems: Yes all other systems are reviewed and are negative Physical Exam 2 Vital Signs: Vital Signs: Last Vital Signs Temp 97.3 F 08/18/23 07:22 Pulse 72 08/18/23 07:22 Resp 16 08/18/23 07:22 BP 111/58 L 08/18/23 07:22 Pulse Ox 94 08/18/23 07:22 O2 Del Method Room Air 08/18/23 07:22 BMI result Body Mass Index 15.6 Gen: in no acute distress, thin/malnourished HEENT: sclera anicteric, moist mucus membranes Neck: supple Lungs: clear to auscultation bilaterally Heart: regular rate and rhythm, no murmurs Abd: soft, non-tender, non-distended Ext: no edema Skin: warm/well-perfused Neuro: alert and oriented x3, no focal findings Psych: appropriate affect Objective Data Active Medications Acetaminophen (Acetaminophen 325 Mg Tablet) 650 mg PO Q6H PRN PRN Reason: Pain, Mild (Pain Scale 1-3) Atorvastatin Calcium (Atorvastatin Calcium 40 Mg Tablet) 40 mg PO BEDTIME [facility] Last Admin: 08/17/23 19:47 Dose: 40 mg Documented By: MELA Benzonatate (Benzonatate 100 Mg Capsule) 100 mg PO TID PRN PRN Reason: Cough Enoxaparin Sodium (Enoxaparin Sodium 40 Mg/0.4 Ml Syringe) 40 mg SUBCUT Q24H [facility] Last Admin: 08/18/23 12:04 Dose: 40 mg Documented By: DEBI Lorazepam (Lorazepam 0.5 Mg Tablet) 0.5 mg PO BID PRN PRN Reason: anxiety Last Admin: 08/18/23 08:23 Dose: 0.5 mg Documented By: DEBI Metoprolol Succinate (Metoprolol Succinate Er 25 Mg Tab.Er.24h) 25 mg PO DAILY [facility]; Protocol Last Admin: 08/16/23 08:28 Dose: Not Given Documented By: RUTHIE Non-Admin Reason: Decreased Blood Pressure Omeprazole (Omeprazole 40 Mg Capsule.) 40 mg PO DAILY@0630 [facility] Last Admin: 08/18/23 05:42 Dose: 40 mg Documented By: MELA Ondansetron HCl (Ondansetron Hcl 4 Mg/2 Ml Vial) 4 mg IVPUSH Q8H PRN PRN Reason: Nausea and Vomiting Quetiapine Fumarate (Quetiapine Fumarate 25 Mg Tablet) 25 mg PO BEDTIME [facility] Last Admin: 08/17/23 19:47 Dose: 25 mg Documented By: MELA Sodium Chloride (0.9 % Sodium Chloride Flush 3 Ml Syringe) 3 ml IVFLUSH QSHIFT [facility] Last Admin: 08/18/23 06:57 Dose: Not Given Documented By: DEBI Non-Admin Reason: IV Running Temazepam (Temazepam 15 Mg Capsule) 15 mg PO BEDTIME PRN PRN Reason: sleep Last Admin: 08/18/23 02:26 Dose: 15 mg Documented By: MELA Vancomycin HCl (Vancomycin Hcl 125 Mg Capsule) 250 mg PO Q6H [facility] Last Admin: 08/18/23 08:23 Dose: 250 mg Documented By: DEBI Labs 08/18/23 05:39 08/18/23 05:39 Labs: Laboratory Results - last 24 hr 08/18/23 05:39 MCV 88.2 MCH 28.8 MCHC 32.6 RDW 14.6 Plt Count 379 MPV 9.4 Absolute Nucleated RBC 0.000 Nucleated RBC % (auto) 0.0 Anion Gap 9 L Estim Creat Clear Calc 53.3 Estimated GFR > 60 Random Glucose 83 Calcium 8.5 Magnesium 1.7 C-Reactive Protein 7.18 H Assessment and Plan (1) Hypokalemia: Status: Acute (2) Leukocytosis: Status: Acute (3) C. difficile colitis: Status: Acute Plan d5 72yo F with malnutrition, stress induced cardiomyopathy with reduced EF, Raynaud's phenomenon, GERD, mood disorder admitted for C diff proctocolitis C diff colitis - continue vancomycin 08/14-08/24 - leukocytosis + diarrhea improving hypoK - replete, recheck level in AM mechanical fall - seen by PT, STR recommended but pt declines moderate pr/tahmina malnutrition - supplements mood disorder - lorazepam, temapzeam, quetiapine HLD - statin HTN - hold metoprolol for soft BP abnormal EKG - chronic finding [anterior T-wave inversions], no chest pain VTE ppx - LMWH dispo - anticipate home with VNA In my clinical judgment, the patient requires continued inpatient hospitalization for the following reasons: C diff colitis Total time managing care of this patient today: 35 minutes. Quality Stroke Does the patient have a stroke diagnosis?: No VTE Prior VTE?: No VTE Risk Level:: Medical - moderate - high VTE Device Contraindication: Treatment Not Indicated VTE Drug Contraindication: N/A - Med Ordered
[2023-08-18] MEDS: 0.9 % Sodium Chloride Flush 3 ML SYRINGE IVFLUSH (15:03)
[2023-08-18 16:00] VITALS: BP 112/60; PULSE 85; RESP 18; TEMP 37.1; O2SAT 96
[2023-08-18] MEDS: LORazepam 0.5 MG TABLET 0.25 MG PO (17:53)
[2023-08-18 19:25] VITALS: BP 115/62; PULSE 80; RESP 16; TEMP 36.7; O2SAT 95
[2023-08-18] MEDS: QUEtiapine Fumarate 25 MG TABLET PO (20:34)
[2023-08-18] MEDS: Atorvastatin Calcium 40 MG TABLET PO (20:34)
[2023-08-19] MEDS: Temazepam 15 MG CAPSULE PO (01:01)
[2023-08-19] MEDS: vancomycin HCL 125 MG CAPSULE 250 MG PO ×3 (01:01→14:17)
[2023-08-19 04:00] VITALS: BP 109/58; PULSE 79; RESP 16; TEMP 36.3; O2SAT 92
[2023-08-19] MEDS: Omeprazole 40 MG CAPSULE.DR PO (05:34)
[2023-08-19 06:15] LABS: Anion Gap 9 (12-20); Blood Urea Nitrogen 8 mg/dL (9-16); Calcium 8.5 mg/dL (8.4-10.2); Carbon Dioxide 21 mmol/L (22-29); Chloride 115 mmol/L (96-108); Creatinine Clr Calc Pharmacy 48.7; Estimated Glomerular Filt Rate > 60; Glucose Random 88 mg/dL (60-115); Magnesium 1.7 mg/dL (1.6-2.6); Potassium 3.7 mmol/L (3.3-5.1); Sodium 141 mmol/L (135-145)
[2023-08-19 07:20] VITALS: BP 110/61; PULSE 87; RESP 14; TEMP 36.8; O2SAT 93
[2023-08-19] MEDS: 0.9 % Sodium Chloride Flush 3 ML SYRINGE IVFLUSH (08:59)
--- NOTE | 2023-08-19 11:04 | MHC.CM.PN ---
Addendum entered by Yesenia Gerard 08/19/23 14:14: [facility] pharmacy can provide the medication with [facility] coupon $[id number]. The prescription is being filled. Patient will transport home @ 5pm. Her CALL CENTER COORDINATOR Miguelina has been notified that discharge is today. She stated that she will come to [facility] when he gets out of work. Addendum entered by Yesenia Gerard 08/19/23 13:20: Vanco ordered at discharge. [facility] has priced and the cost is prohibitive. [facility] pharmacy is double checking the patients financial responsibility for the prescription. Original Note: IMM 08/18/23 Patient is discharged today to home. [employer] CENTER COORDINATOR services will resume. The patient has arranged for transportation home. her ride will pick her up at 4pm this afternoon. The patient declined the PT recommendation for STR. VNA services were also declined by the patient.
--- NOTE | 2023-08-19 12:38 | P.DS_ITS ---
DS: Providers Provider Date of Service: 08/19/23 Date of admission: 08/14/23 12:24 Date of discharge: 08/19/23 Primary care physician: Aniyah Mcgregor MD DS: Diagnosis Discharge Diagnosis (1) Hypokalemia: Status: Acute (2) Leukocytosis: Status: Acute (3) C. difficile colitis: Status: Acute (4) Moderate protein-calorie malnutrition: Status: Acute DS: Summary Hospital Course Hospital Course: From the history and physical by the admitting hospitalist, ONEL Eldridge, 08/14/23: Pt is a 72-year-old female with a PMH significant for?moderate protein calorie malnutrition, stress induced cardiomyopathy with recovered EF, Raynaud's, GERD, and mood disorder who presents to the ED for evaluation after fall at home. Patient lives alone in elderly housing and has a recent admission last month from 07/18-07/20 for similar symptoms for fall at home and treated for hypokalemia and compression fractures of T8/T11. Patient reports after last discharge she went to rehab for 5 days and felt well upon getting home. Reports at baseline she has to urinate frequently at night but has difficulty getting in and out bed. Uses walker at baseline. This morning she rolled over in her bed to use the commode and slid to the floor. Unclear if hit her head or not. Has a bracelet to call EMS that was not working, so it took her 15-20 minutes to reach a landline to contact EMS who brought her in for further evaluation. Reports she has been experiencing diarrhea for the past 1-1/2 weeks and a stomach ache since earlier this morning. Reports has been eating and drinking normally with no nausea or vomiting. Denies fever, chills, cough. No lightheadedness or dizziness. Chronic fatigue appears at baseline. No chest pain/pressure, palpitations. In the ED pt had soft BP as low as 96/43, otherwise vitals WNL. Labs were significant for Leukocytosis of 17.7, H&H 9.6/29.3, potassium 3.1, alk-phos 128, C-reactive protein 8.31, protein 5.2, and albumin 2.9. UA likely negative, showing moderate leukocyte esterase and 11-20 wbc's, no nitrites or bacteria. CT of the abdomen and pelvis found thick-walled appearance of rectum much sigmoid, descending, and ascending colon, suspicious for colitis and proctitis. Also found worsened compound deformity of T11. Head CT negative for acute intracranial pathology. Right foot and ankle x-ray found soft tissue swelling without acute osseous findings. EKG demonstrated normal sinus rhythm with nonspecific ST abnormality and T-wave inversions in anterior leads. Pt was treated with IVF and potassium chloride. Pt will be admitted to the hospital for treatment further evaluation of colitis. 72yo F with malnutrition, stress induced cardiomyopathy with reduced EF, Raynaud's phenomenon, GERD, and mood disorder who was admitted for C diff proctocolitis. She was treated with PO vancomycin for 4 days with improvement in diarrhea and leukocytosis. Potassium was repleted. She was seen by PT and short-term rehabilitation recommended, but she declined. She also declined VNA services. 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 Time Attestation Discharge Coordination Time (in mins): 35 Quality: Safe Use of Opioids Does Pt have an Active Cancer Diagnosis on the Problem List?: No Quality: Stroke Does the patient have a stroke diagnosis?: No Physical Exam Vital Signs: Vital Signs: Last Vital Signs Temp 98.3 F 08/19/23 07:20 Pulse 87 08/19/23 07:20 Resp 14 08/19/23 07:20 BP 110/61 08/19/23 07:20 Pulse Ox 93 08/19/23 07:20 O2 Del Method Room Air 08/19/23 07:20 BMI result Body Mass Index 15.6 Gen: in no acute distress, thin/malnourished HEENT: sclera anicteric, moist mucus membranes Neck: supple Lungs: clear to auscultation bilaterally Heart: regular rate and rhythm, no murmurs Abd: soft, non-tender, non-distended Ext: no edema Skin: warm/well-perfused Neuro: alert and oriented x3, no focal findings Psych: appropriate affect DS: Data Data Completed and Pending Completed studies during hospitalization [Text1]: Laboratory Results WBC 11.1 X10*3/uL (4.8-10.8) H 08/18/23 05:39 RBC 3.23 X10*6/uL (4.20-5.50) L 08/18/23 05:39 Hgb 9.3 g/dl (12.0-16.0) L 08/18/23 05:39 Hct 28.5 % (37.0-47.0) L 08/18/23 05:39 MCV 88.2 fL (80.0-98.0) 08/18/23 05:39 MCH 28.8 pg (27.0-33.0) 08/18/23 05:39 MCHC 32.6 g/dl (31.0-35.0) 08/18/23 05:39 RDW 14.6 % (11.0-16.0) 08/18/23 05:39 Plt Count 379 X10*3/uL (160-400) 08/18/23 05:39 MPV 9.4 fL (9.4-12.3) 08/18/23 05:39 Immature Gran % (Auto) 0.5 % (0.0-0.4) H 08/14/23 01:08 Neut % (Auto) 80.5 % (45-73) H 08/14/23 01:08 Lymph % (Auto) 10.8 % (20-40) L 08/14/23 01:08 [place] % (Auto) 7.1 % (2-11) 08/14/23 01:08 Eos % (Auto) 0.8 % (0-4) 08/14/23 01:08 Baso % (Auto) 0.3 % (0-2) 08/14/23 01:08 Lymph # (Auto) 1.9 X10*3/uL (1.2-4.9) 08/14/23 01:08 [place] # (Auto) 1.3 X10*3/uL (0.1-1.2) H 08/14/23 01:08 Eos # (Auto) 0.2 X10*3/uL (0.0-0.4) 08/14/23 01:08 Baso # (Auto) 0.1 X10*3/uL (0.0-0.2) 08/14/23 01:08 Abs Immat Gran (auto) 0.08 X10*3/uL (0.00-0.03) H 08/14/23 01:08 Absolute Neuts (auto) 14.2 x10*3/uL (2.0-8.3) H 08/14/23 01:08 Absolute Nucleated RBC 0.000 X10*3/uL (0.0-0.012) 08/18/23 05:39 Nucleated RBC % (auto) 0.0 /100WBC (0.0-0.2) 08/18/23 05:39 Hold Purple Top SEE NOTE 08/19/23 05:34 Sodium 141 mmol/L (135-145) 08/19/23 05:34 Potassium 3.7 mmol/L (3.3-5.1) 08/19/23 05:34 Chloride 115 mmol/L (96-108) H 08/19/23 05:34 Carbon Dioxide 21 mmol/L (22-29) L 08/19/23 05:34 Anion Gap 9 (12-20) L 08/19/23 05:34 BUN 8 mg/dL (9-16) L 08/19/23 05:34 Creatinine 0.58 mg/dL (0.5-1.4) 08/19/23 05:34 Estim Creat Clear Calc 48.7 08/19/23 05:34 Estimated GFR > 60 08/19/23 05:34 POC Glucose 61 mg/dL (60-115) 08/14/23 01:00 Random Glucose 88 mg/dL (60-115) 08/19/23 05:34 Lactic Acid 0.8 mmol/L (0.5-2.0) 08/14/23 06:30 Calcium 8.5 mg/dL (8.4-10.2) 08/19/23 05:34 Magnesium 1.7 mg/dL (1.6-2.6) 08/19/23 05:34 Total Bilirubin 0.5 mg/dL (0.0-1.0) 08/14/23 01:08 AST 14 U/L (5-31) 08/14/23 01:08 ALT 10 U/L (0-31) 08/14/23 01:08 Alkaline Phosphatase 128 U/L (39-117) H 08/14/23 01:08 Troponin I High Sens < 2.7 ng/L (<3.5-17.0) D 08/14/23 01:08 C-Reactive Protein 7.18 mg/dL (< or = 0.50) H 08/18/23 05:39 Total Protein 5.2 g/dL (6.5-8.0) L 08/14/23 01:08 Albumin 2.9 g/dL (3.5-5.0) L 08/14/23 01:08 Triglycerides 62 mg/dL (<150) 08/16/23 05:19 Cholesterol 123 mg/dL (<200) 08/16/23 05:19 LDL Cholesterol, Calc 71 mg/dL (<100) 08/16/23 05:19 HDL Cholesterol 40 mg/dL (>40) L 08/16/23 05:19 Urine Color Yellow 08/16/23 02:38 Urine Appearance Clear 08/16/23 02:38 Urine pH 7.5 (5.0-9.0) 08/16/23 02:38 Ur Specific [place] 1.015 (1.005-1.025) 08/16/23 02:38 Urine Protein 30 (1+) mg/dL (Neg-Trace) H 08/16/23 02:38 Urine Glucose (UA) Negative mg/dL (Negative) 08/16/23 02:38 Urine Ketones Negative mg/dL (Negative) 08/16/23 02:38 Urine Blood Moderate (2+) (Negative) H 08/16/23 02:38 Urine Nitrite Negative (Negative) 08/16/23 02:38 Ur Leukocyte Esterase Small (1+) (Negative) H 08/16/23 02:38 Urine RBC >20 /HPF (0-2) H 08/16/23 02:38 Urine WBC 21-50 /HPF (0-5) H 08/16/23 02:38 Ur Squamous Epith Cells 0-2 /HPF (0-2) 08/16/23 02:38 Urine Bacteria None Seen (None Seen) 08/16/23 02:38 Hyaline Casts 0-2 /LPF (0-2) 08/16/23 02:38 Stl C. cayetanensis PCR Not Detected (Not Detect.) 08/15/23 04:07 Stool Rotavirus A PCR Not Detected (Not Detect.) 08/15/23 04:07 Stl Adenov F 40/41 PCR Not Detected (Not Detect.) 08/15/23 04:07 Stool Astrovirus (PCR) Not Detected (Not Detect.) 08/15/23 04:07 Stool Campylobacter PCR Not Detected (Not Detect.) 08/15/23 04:07 Stool Cryptosporidium PCR Not Detected (Not Detect.) 08/15/23 04:07 Stl Sh Tox Pr E STEC PCR Not Detected (Not Detect.) 08/15/23 04:07 Stool E coli O157 PCR Not applicable (Not Detect.) 08/15/23 04:07 Stl Enterotoxigenic E PCR Not Detected (Not Detect.) 08/15/23 04:07 Stool EPEC (PCR) Not Detected (Not Detect.) 08/15/23 04:07 Stool EAEC (PCR) Not Detected (Not Detect.) 08/15/23 04:07 Stl E. histolytica PCR Not Detected (Not Detect.) 08/15/23 04:07 Stool Giardia Lamblia PCR Not Detected (Not Detect.) 08/15/23 04:07 Stl P. shigelloides PCR Not Detected (Not Detect.) 08/15/23 04:07 Stool Salmonella PCR Not Detected (Not Detect.) 08/15/23 04:07 Stool Sapovirus (PCR) Not Detected (Not Detect.) 08/15/23 04:07 Stl Shigella/EIEC PCR Not Detected (Not Detect.) 08/15/23 04:07 St Y.enterocolitica PCR Not Detected (Not Detect.) 08/15/23 04:07 Stool Vibrio (PCR) Not Detected (Not Detect.) 08/15/23 04:07 Stl Vibrio cholerae PCR Not Detected (Not Detect.) 08/15/23 04:07 Stl Norovirus GI/GII PCR Not Detected (Not Detect.) 08/15/23 04:07 C. difficile Tox B Gene POSITIVE (Negative) A* 08/15/23 04:07 C. difficile Toxin A&B Positive (Negative) A* 08/15/23 04:07 C. difficile Interpret SEE NOTE 08/15/23 04:07 Impressions Ankle X-Ray 08/14/23 02:19 IMPRESSION: Soft tissue swelling without acute osseous findings. Foot X-Ray 08/14/23 02:19 IMPRESSION: Soft tissue swelling without acute osseous findings. Head CT 08/14/23 04:01 IMPRESSION: No acute intracranial pathology. Abdomen/Pelvis CT 08/14/23 04:02 IMPRESSION: 1. Limited examination due to motion artifact. 2. Prominent enhancing, thick-walled appearance of the rectum and much of the sigmoid colon, as well as much of the descending and ascending colon. Overall appearance is suspicious for sequelae of colitis and proctitis. 3. Bilateral renal calculi without appreciable hydronephrosis. 4. Moderate compression deformity of T11, worsened compared to 07/16/2023. Discharge Plan Discharge Anticipated Discharge Date/Time: 08/19/23 12:36 Patient Disposition: Home, Self-Care Discharge Diagnosis: C. difficile colitis, malnutrition Referrals: Aniyah Smith MD [Primary Care Provider] - 1 Week Discharge Medications: New vancomycin 125 mg Capsule 125 mg PO Q6H Qty: 40 0RF Continued (DME) foot inserts See Rx Instructions .Route .MEDSUPPLY Qty: 1 0RF Rx Instructions: As directed (DME) leno.stocking,knee,reg,smal Misc See Rx Instructions .Route Qty: 12 0RF Rx Instructions: As directed metoprolol succinate 25 mg tablet extended release 24 hr 25 mg PO DAILY Qty: 30 5RF atorvastatin 40 mg tablet 40 mg PO BEDTIME 90 Days Qty: 90 1RF pantoprazole 40 mg tablet,delayed release (DR/EC) 40 mg PO DAILY@0630 quetiapine 50 mg tablet 25 mg PO BEDTIME famotidine 20 mg tablet 20 mg PO BID@0900,1200 lorazepam 1 mg tablet 1 mg PO BID PRN (Reason: anxiety) 30 Days Qty: 60 5RF temazepam 15 mg capsule 15 mg PO BEDTIME PRN (Reason: sleep) 30 Days Qty: 30 5RF Discharge Orders: Discharge Order (Routine); Ordered 08/19/23 Ordered By: Jovi Gonzalez Diet: Advance to usual diet Activity on Discharge: As tolerated Stand Alone Forms: Patient Portal Discharge page Care Plan Goals: recovery from C difficile colitis Health Concerns: C difficile colitis, malnutrition Plan of Treatment: vancomycin 125 mg 4x a day for 10 days take Ensure, Boost, or other protein supplement Please follow up with your primary care doctor within 1 week. Return to the hospital if you experience recurrent or worsening symptoms. Assessment: See Discharge Summary.
--- NOTE | 2023-08-19 13:26 | P.PNIM_ITS ---
Subjective Subjective Date of Service: 08/19/23 Interval History: diarrhea improved ready to go home Discharge was prepared; however, her insurance company will NOT cover vancomycin without a PA. Cost to pt would be >$1000 otherwise. I asked the pharmacist to run generic + brand vancomycin, capsules + liquid and the result is the same. Fidoxamicin is covered but with a $2000 copay. As such, the pt could not be discharged in good conscience Review of Systems Review of Systems: Yes all other systems are reviewed and are negative Physical Exam 2 Vital Signs: Vital Signs: Last Vital Signs Temp 98.3 F 08/19/23 07:20 Pulse 87 08/19/23 07:20 Resp 14 08/19/23 07:20 BP 110/61 08/19/23 07:20 Pulse Ox 93 08/19/23 07:20 O2 Del Method Room Air 08/19/23 07:20 BMI result Body Mass Index 15.6 Gen: in no acute distress, thin/malnourished HEENT: sclera anicteric, moist mucus membranes Neck: supple Lungs: clear to auscultation bilaterally Heart: regular rate and rhythm, no murmurs Abd: soft, non-tender, non-distended Ext: no edema Skin: warm/well-perfused Neuro: alert and oriented x3, no focal findings Psych: appropriate affect Objective Data Active Medications Acetaminophen (Acetaminophen 325 Mg Tablet) 650 mg PO Q6H PRN PRN Reason: Pain, Mild (Pain Scale 1-3) Atorvastatin Calcium (Atorvastatin Calcium 40 Mg Tablet) 40 mg PO BEDTIME [facility] Last Admin: 08/18/23 20:34 Dose: 40 mg Documented By: MELA Benzonatate (Benzonatate 100 Mg Capsule) 100 mg PO TID PRN PRN Reason: Cough Enoxaparin Sodium (Enoxaparin Sodium 40 Mg/0.4 Ml Syringe) 40 mg SUBCUT Q24H [facility] Last Admin: 08/18/23 12:04 Dose: 40 mg Documented By: DEBI Lorazepam (Lorazepam 0.5 Mg Tablet) 0.5 mg PO BID PRN PRN Reason: anxiety Last Admin: 08/18/23 22:04 Dose: 0.5 mg Documented By: MELA Metoprolol Succinate (Metoprolol Succinate Er 25 Mg Tab.Er.24h) 25 mg PO DAILY [facility]; Protocol Last Admin: 08/16/23 08:28 Dose: Not Given Documented By: RUTHIE Non-Admin Reason: Decreased Blood Pressure Omeprazole (Omeprazole 40 Mg Capsule.) 40 mg PO DAILY@0630 [facility] Last Admin: 08/19/23 05:34 Dose: 40 mg Documented By: MELA Ondansetron HCl (Ondansetron Hcl 4 Mg/2 Ml Vial) 4 mg IVPUSH Q8H PRN PRN Reason: Nausea and Vomiting Quetiapine Fumarate (Quetiapine Fumarate 25 Mg Tablet) 25 mg PO BEDTIME [facility] Last Admin: 08/18/23 20:34 Dose: 25 mg Documented By: MELA Sodium Chloride (0.9 % Sodium Chloride Flush 3 Ml Syringe) 3 ml IVFLUSH QSHIFT [facility] Last Admin: 08/19/23 08:59 Dose: 3 ml Documented By: ANGELA Temazepam (Temazepam 15 Mg Capsule) 15 mg PO BEDTIME PRN PRN Reason: sleep Last Admin: 08/19/23 01:01 Dose: 15 mg Documented By: MELA Vancomycin HCl (Vancomycin Hcl 125 Mg Capsule) 250 mg PO Q6H [facility] Last Admin: 08/19/23 08:58 Dose: 250 mg Documented By: ANGELA Labs 08/18/23 05:39 08/19/23 05:34 Labs: Laboratory Results - last 24 hr 08/19/23 05:34 Hold Purple Top SEE NOTE Anion Gap 9 L Estim Creat Clear Calc 48.7 Estimated GFR > 60 Random Glucose 88 Calcium 8.5 Magnesium 1.7 Microbiology Microbiology Results: Microbiology 08/14/23 06:30 Blood Culture - Final Blood - Venous No growth after 5 days. 08/14/23 06:30 Blood Culture - Final Blood - Venous No growth after 5 days. Assessment and Plan (1) Hypokalemia: Status: Acute (2) Leukocytosis: Status: Acute (3) C. difficile colitis: Status: Acute Plan d6 72yo F with malnutrition, stress induced cardiomyopathy with reduced EF, Raynaud's phenomenon, GERD, mood disorder admitted for C diff proctocolitis severe C diff colitis - continue vancomycin 08/14-08/28 - leukocytosis + diarrhea improving hypoK - repleted mechanical fall - seen by PT, STR recommended but pt declines moderate pr/tahmina malnutrition - supplements mood disorder - lorazepam, temapzeam, quetiapine HLD - statin HTN - resume metoprolol abnormal EKG - chronic finding [anterior T-wave inversions], no chest pain VTE ppx - LMWH dispo - declines STR + VNA. Plan home with resumption of [employer] services. However, insurance has placed a barrier to her obtaining the PO vancomycin so we will have to wait for a PA. In my clinical judgment, the patient requires continued inpatient hospitalization for the following reasons: insurance refusing to cover PO vancomycin without PA. Will try to expedite. Total time managing care of this patient today: 35 minutes. Quality Stroke Does the patient have a stroke diagnosis?: No VTE Prior VTE?: No VTE Risk Level:: Medical - moderate - high VTE Device Contraindication: Treatment Not Indicated VTE Drug Contraindication: N/A - Med Ordered
[2023-08-19] MEDS: LORazepam 0.5 MG TABLET PO (14:17)
[2023-08-19] MEDS: Enoxaparin Sodium 40 MG/0.4 ML SYRINGE SUBCUT (14:18)
[2023-08-19 15:21] VITALS: BP 129/72; PULSE 83; RESP 16; TEMP 36.6; O2SAT 94
== END 2023-08-19 17:15 | disposition home or self-care (01) | DRG 372 ==
LOC: HO.ED 07:08 → HO.EDOVER 12:29 → HO.S3 19:43
PROVIDERS: Hospitalist; Internal Medicine; Admitting Provider Student in an Organized Health Care Education/Training Program; Emergency Provider Emergency Medicine; PCP Internal Medicine; Visit Provider Family Medicine
DX: A04.72 Enterocolitis due to Clostridium difficile, not specified as recurrent (principal); E44.0 Moderate protein-calorie malnutrition; Z68.1 Body mass index [BMI] 19.9 or less, adult; I10 Essential (primary) hypertension; W19.XXXA Unspecified fall, initial encounter; Z66 Do not resuscitate; E87.6 Hypokalemia; I73.00 Raynaud's syndrome without gangrene; E78.5 Hyperlipidemia, unspecified; F39 Unspecified mood [affective] disorder; Z87.891 Personal history of nicotine dependence; Z79.899 Other long term (current) drug therapy
CPT/HCPCS: 36415; 70450; 73600; 73620; 74177; 80048; 80053; 80061; 81001; 82947; 83605; 83735; 84484; 85025; 85027; 86140; 87040; 87086; 87324; 87493; 87507; 93005; 97116; 97162; 97530; 99285; C1758; J1650; J2543; J7120; Q9967

== ENCOUNTER → 2023-08-14 00:53 | Outpatient (BNV) | payer MEDICARE, SELFPAY | PROVIDERS: Admitting Provider Student in an Organized Health Care Education/Training Program; Emergency Provider Emergency Medicine; Visit Provider Internal Medicine Cardiovascular Disease | DX: R51.9 Headache, unspecified (principal); W19.XXXA Unspecified fall, initial encounter | CPT/HCPCS: 93010 ==

== ENCOUNTER → 2023-08-14 12:24 | Outpatient (BNV) | payer MEDICARE, SELFPAY | PROVIDERS: Admitting Provider Student in an Organized Health Care Education/Training Program; Emergency Provider Emergency Medicine; Visit Provider Student in an Organized Health Care Education/Training Program | DX: E87.6 Hypokalemia (principal); D72.829 Elevated white blood cell count, unspecified; A04.72 Enterocolitis due to Clostridium difficile, not specified as recurrent; E44.0 Moderate protein-calorie malnutrition | CPT/HCPCS: 99223; 99232; 99233; 99239 ==

== ENCOUNTER 2023-08-20 09:55 | Inpatient (IN) | payer MEDICARE, SELFPAY ==
[2023-08-20] VITALS (14 sets, daily range): BP systolic 92–122; BP diastolic 57–80; PULSE 79–100; RESP 16–21; TEMP 34.3–37; O2SAT 92–100; BMI 17.2
--- NOTE | ~2023-08-20 | CT_ITS ---
EXAMINATION: CT HEAD W/O IV CONTRAST CT CERVICAL SPINE W/O IV CONTRAST CLINICAL INFORMATION: Trauma. COMPARISON: 07/16/2023 and 08/14/2023 TECHNIQUE: Head - Contiguous axial imaging of the head was performed from the skull base to the vertex without the administration of intravenous contrast, and axial images are reconstructed at 2 mm and 5 mm slice thickness. Cervical spine - A volumetric, helical CT acquisition of the cervical spine was obtained without contrast; in addition to the standard set of axial images, multiplanar reformatted images were provided in the coronal and sagittal imaging planes. This CT examination was performed using dose optimization techniques as appropriate, variously including the following: *Automated exposure control *Adjustment of mA and/or kV according to patient size (this includes techniques or standardized protocols for targeted exams where dose is matched to indication/reason for exam; i.e. extremities or head) *Use of iterative reconstruction technique DLP: 792 mGy-cm (total) FINDINGS: HEAD: No acute intracranial findings. Cabrera to white matter differentiation is preserved. No evidence of intracranial hemorrhage, major vascular territory infarction, focal mass effect or midline shift. Chronic parenchymal volume loss associated with commensurate prominence of ventricles and sulci. No hydrocephalus or extra-axial fluid collections. There are chronic small vessel ischemic changes within the supratentorial white matter. The calvarium is intact and the visualized paranasal sinuses, mastoid air cells and middle ear cavities are clear. There is degenerative joint space narrowing and mild osteophyte formation at the right temporomandibular joint. The orbits and globes are unremarkable. CERVICAL SPINE: The craniocervical junction is normal. The occipital condyles, dens and atlantodental articulation are intact. The cervical vertebra are normal in height. No acute fracture, prevertebral edema or soft tissue hematoma. Chronic multilevel disc degenerative change and facet arthropathy. There is chronic approximately 0.2 cm of degenerative anterolisthesis of C2 on C3. The disc degenerative changes and uncovertebral joint hypertrophy are predominantly noted at C3-C4, C4-C5 and C5-C6. The uncovertebral joint hypertrophy causes varying degrees of bilateral neural foraminal stenosis, including severe bilateral foraminal stenosis at C4-C5. Posterior disc-osteophyte complex chronically causes spinal canal stenosis at C4-C5. No acute abnormalities in the visualized lung apices. Thyroid gland is unremarkable. There is chronic gaseous distention of the partially visualized proximal esophagus. CT/CT cervical spine wo IV con IMPRESSION: * No intracranial hemorrhage or other acute intracranial pathology compared to 08/14/2023. * No fracture or chronic subluxation in the degenerated cervical spine.
--- NOTE | ~2023-08-20 | CT_ITS ---
EXAMINATION: CT CHEST WITHOUT CONTRAST CLINICAL INFORMATION: Shortness of breath. COMPARISON: Chest CT from 07/16/2023. TECHNIQUE: Multidetector volumetric CT imaging of the chest was done. Axial MIP volume rendering provided. Sagittal and coronal reformatted images were obtained. This CT examination was performed using dose optimization techniques as appropriate, variously including the following: *Automated exposure control *Adjustment of mA and/or kV according to patient size (this includes techniques or standardized protocols for targeted exams where dose is matched to indication/reason for exam; i.e. extremities or head) *Use of iterative reconstruction technique After acquisition of the topograms, the DLP for the chest is 131.67mGy-cm FINDINGS: LUNGS AND PLEURA: There is mild respiratory motion on these images through the chest. Mild centrilobular emphysema. Chronic mild pleural-based scarring at lung apices. A few old bilateral calcified pulmonary granulomas are present. No interval development of any suspicious lung nodule. Compared to 07/16/2023, interval increased size of small pleural effusion and development of new right pleural effusion. No pneumothorax. There are opacities of atelectasis in lower lobes (left worse than right). CARDIOVASCULAR: The heart size is normal. The blood within cardiac chambers is relatively hypodense compared to myocardium; this can be a manifestation of anemia. No pericardial effusion. Pulmonary arteries are normal in caliber. Mild atherosclerosis of the thoracic aorta without aneurysm. CORONARY ARTERY CALCIFICATION: Mild multivessel coronary artery atherosclerotic calcification is present. MEDIASTINUM AND LOWER NECK: No mediastinal mass. The proximal to mid third of the esophagus is chronically distended with gas and has a patulous appearance. No evidence of esophageal mass or hiatal hernia. LYMPHATICS: No pathologic sized lymph nodes. UPPER ABDOMEN: Small amount of simple appearing free fluid is seen within the upper abdomen. No pneumoperitoneum. The kidneys are partially included in the [id number]. The stone of the left renal pelvis measures up to approximately 0.9 cm maximum dimension, density of 1300 Hounsfield units, approximately 6 cm deep from the skin surface at the posterior axillary line. SKELETAL AND CHEST WALL: Dextroscoliosis of the thoracic spine. Bones are diffusely osteoporotic. Mild concave depression of the superior endplate of the T4 vertebral body is new since 07/16/2023. Old moderate compression fractures of the T8 and T11 vertebral bodies. CT/CT chest wo IV con IMPRESSION: * Mild pulmonary emphysema. * Interval increased size of left pleural effusion and new small right pleural effusion associated with bibasilar atelectasis. No overt pneumonia. Also, no evidence of pulmonary edema. * The esophagus is chronically distended. This could be a manifestation of severe esophageal dysfunction, chronic distal stricture or achalasia. * The blood within cardiac chambers is relatively hypodense compared to myocardium. Correlate for history of anemia. * A nonobstructing stone is seen in the left renal pelvis. * Diffuse osteoporosis. Skeletal findings include old compression fractures of the T4 and T11 vertebral bodies. There is a new mild concave depression of the T4 superior endplate.
--- NOTE | ~2023-08-20 | CT_ITS ---
EXAMINATION: CT ABDOMEN AND PELVIS WITHOUT CONTRAST CLINICAL INFORMATION: Abdominal pain COMPARISON: CT scan of abdomen and pelvis on 08/14/2023 TECHNIQUE: Multidetector volumetric imaging was performed from the superior aspect of the liver through the pubic symphysis. Sagittal and coronal reformatted images were obtained on the technologist's workstation. This CT examination was performed using dose optimization techniques as appropriate, variously including the following: *Automated exposure control *Adjustment of mA and/or kV according to patient size (this includes techniques or standardized protocols for targeted exams where dose is matched to indication/reason for exam; i.e. extremities or head) *Use of iterative reconstruction technique DLP: 385.61 mGy-cm FINDINGS: CT ABDOMEN LUNG BASES: Bilateral posterior lung bases extensive airspace disease and bilateral moderate pleural effusions are partially visualized. LIVER: Liver appears to be grossly normal on noncontrast enhanced images. GALLBLADDER AND BILIARY TREE: Gallbladder does not contain calcified gallstone. Common bile duct is not dilated. SPLEEN: The spleen is normal in size without focal lesion on noncontrast enhanced images. PANCREAS: The pancreas appears unremarkable on noncontrast enhanced images. ADRENAL GLANDS: Adrenal glands are normal in size without focal lesion bilaterally. KIDNEYS: The visualized bilateral kidneys are normal in size with a tiny 0.3 cm calculus in left upper pole, 0.9 cm left mid renal calculus and collection of left lower pole renal calculi up to 0.8 cm in diameter, right lower pole renal calculus measuring 0.6 cm in diameter. No caliectasis or dilated pelvis is seen. No dilated ureters are found. BOWELS: There is no abnormal dilatation of the large and small bowel loops. RETROPERITONEUM: No abnormally enlarged retroperitoneal lymph nodes, mass or hematoma could be seen. BLOOD VESSELS: Abdominal aorta is normal in size and smooth in outline. ABDOMINAL WALL: Small umbilical hernia containing mesenteric fat is seen. PERITONEUM: There is trace perihepatic ascites. There were no abdominal peritoneal inflammatory changes seen. No free peritoneal air was seen. BONES: There are marked L1-L2 levoscoliosis and multilevel advanced degenerative lumbar disc disease. Persistent Diffuse sclerotic changes and moderate compression fracture of T11 vertebral body are seen. No focal bone lesion diagnostic of metastatic disease could be seen in the lumbar region. CT PELVIS URINARY BLADDER: The visualized urinary bladder is normal, filled with urine. No intraluminal stones are found. No abnormally dilated distal ureters are seen. BOWELS: There is no abnormal dilatation of the large and small bowel loops. Appendix cannot be identified. There appears to be mural thickening in the lower ascending colon and cecum, measuring up to 1.4 cm in thickness. GENITAL ORGANS: No adnexal mass lesion could be seen. The uterus is atrophic. LYMPH NODES: No abnormally enlarged iliac or inguinal lymph nodes are seen. PERITONEUM: Small posterior pelvic cul-de-sac free fluid collection is seen. No free peritoneal air are found in the pelvis. BONES: Persistent fracture right inferior pubic ramus, healed with overlapping deformity, fracture mid left inferior pubic ramus with nonunion and pseudoarthrosis are seen. No focal bone lesion diagnostic of metastatic disease could be seen in the pelvis. CT/CT abdomen pelvis wo IV con IMPRESSION: 1. Interval marked progression of Bilateral posterior lung bases extensive airspace disease and development of bilateral moderate pleural effusions are partially visualized. 2. Unchanged Bilateral nonobstructive renal calculi. 3. Interval development of Trace perihepatic ascites and small posterior pelvic cul-de-sac free fluid. 4. Interval appearance of Mural thickening in the lower ascending colon and cecum, could be due to luminal collapse or ascending colitis. 5. Unchanged moderate T11 compression fracture and bilateral inferior pubic rami fractures. 6. Unchanged Marked L1-L2 levoscoliosis and multilevel advanced degenerative lumbar disc disease.
[2023-08-20 10:10] LABS: Glucose, Whole Blood 115 mg/dL (60-115)
--- NOTE | 2023-08-20 10:12 | ECG_ITS ---
Test Reason : FALL Blood Pressure : / mmHG Vent. Rate : 095 BPM Atrial Rate : 095 BPM P-R Int : 116 ms QRS Dur : 090 ms QT Int : 388 ms P-R-T Axes : 072 024 052 degrees QTc Int : 487 ms Normal sinus rhythm Nonspecific ST abnormality Abnormal ECG When compared with ECG of 14-AUG-2023 00:53, T wave inversion no longer evident in Anterior leads Referred By: Evette Smallwood Electronically Signed By:RAISSA SMITH MD
--- NOTE | 2023-08-20 10:24 | ED_ITS ---
HPI - General Adult General Chief complaint: Dyspnea Stated complaint: FELL AT HOME HIT HEAD - LOC/THINNERS Time Seen by Provider: 08/20/23 10:04 History of Present Illness HPI narrative: Patient is an elderly female was just discharged from the hospital for having diarrhea C diff. presented to the emergency department with generalized malaise weakness found on the ground. Patient was down for at least a few hours was noticed by 8 subsequently EMS was contacted and activated. Patient complaining of generalized malaise weakness. No specific pain. Was noted to have diarrhea per patient's age. Patient unable to give detailed history. Related Data Home Medications Medication Instructions Recorded Confirmed pantoprazole 40 mg tablet,delayed 40 mg PO DAILY@0630 07/16/23 08/14/23 release quetiapine 50 mg tablet 25 mg PO BEDTIME 07/16/23 08/14/23 famotidine 20 mg tablet 20 mg PO BID@0900,1200 08/14/23 08/14/23 Previous Rx's Medication Instructions Recorded foot inserts #1 ea 12/04/21 leno.stocking,knee,reg,smal #12 ea 10/14/22 atorvastatin 40 mg tablet 40 mg PO BEDTIME 90 days #90 tabs 03/09/23 lorazepam 1 mg tablet 1 mg PO BID PRN anxiety 30 days 03/09/23 #60 tabs metoprolol succinate 25 mg 25 mg PO DAILY #30 tabs 03/09/23 tablet,extended release 24 hr temazepam 15 mg capsule 15 mg PO BEDTIME PRN sleep 30 days 03/09/23 #30 caps vancomycin 125 mg capsule 125 mg PO Q6H #40 caps 08/19/23 Allergies Allergy/AdvReac Type Severity Reaction Status Date / Time No Known Allergies Allergy Verified 05/17/23 13:06 Review of Systems 2 Review of Systems: Unable to obtain review of systems [facility] Past Medical History Attestation statement: The following information was validated with the patient. Medical History External hemorrhoids Epidermal inclusion cyst White coat syndrome with high blood pressure but without hypertension Dry eyes Hyponatremia Hypercalcemia Diarrhea Renal calculi Constipation by delayed colonic transit GERD (gastroesophageal reflux disease) UTI (urinary tract infection) Villous adenoma of colon Insomnia Raynauds disease Anxiety Surgical History History of bronchoscopy History of tonsillectomy Family History Family History Father Medical history unknown Mother Dementia Alzheimers disease Mental health disorder Brother Leukemia Sister Medical history unknown Social History Social History Household Members: Other Household Members Other:: long term Housing: Other Housing Other:: long term Do you presently have visiting nurse or other home services: Yes Alcohol intake: former Patient Tobacco Use Status: Former Tobacco user Tobacco use type: Cigarette Smoked in Last 30 Days: No e-Cigarette/Vaping Use: Never Used Second Hand Smoke Exposure: No Use of substances other than those prescribed or required for medical reasons: No Advance Directives: Yes Advance Directives on File: Yes Advance Directives Date on File: 11/23/22 service: No Current occupational status: retired Cognitive needs: No Hearing needs: No Vision needs: Yes Physical Exam ED Vital Signs: Vital Signs - 24 hr 08/20/23 10:01 08/20/23 10:05 08/20/23 10:40 Temperature 93.8 F L Pulse Rate 96 94 Respiratory Rate 18 18 Blood Pressure 107/80 Pulse Oximetry 100 100 Oxygen Delivery Method Non-Rebreather Mask Room Air Oxygen Flow Rate 08/20/23 12:19 08/20/23 13:00 08/20/23 13:12 Temperature 95.5 F L Pulse Rate 83 92 Respiratory Rate 18 18 Blood Pressure 106/65 102/63 Pulse Oximetry 99 92 Oxygen Delivery Method Oxymask Room Air Oxygen Flow Rate 5 BMI result Body Mass Index 17.2 Appearance: Lethargic elderly female sick appearing Eyes: Pupils equal, round and reactive to light. ENT: Pharynx normal. Mucous membrane was dry pale conjunctiva Neck: Normal inspection. No posterior C-spine tenderness. C-spine was immobilized No lymph nodes noted. No crepitus CVS: Normal heart rate and rhythm. Pulses normal. Normal S1 and S2 Respiratory: No respiratory distress. Positive wheezing bilaterally, no tenderness on palpation of the clavicle no tenderness on palpation of the chest wall Abdomen: Soft and nontender. No rigidity. No distention. good BS x4 Skin: Skin warm and dry. Normal skin color. Normal skin turgor. Extremities: No lower extremity edema. Neurovascular intact to all extremities. No Lacerations. No Rash Neuro: Awake alert oriented moving all extremities Medications Administered Generic Name Dose Route Start Last Admin Trade Name Theresa PRN Reason Stop Dose Admin Sodium Chloride 1,000 mls @ 999 mls/hr 08/20/23 12:45 08/20/23 12:53 Ns IV 08/20/23 13:45 999 mls/hr .Q1H1M DEEPALI Administration Discontinued Medications Generic Name Dose Route Start Last Admin Trade Name Theresa PRN Reason Stop Dose Admin Dexamethasone Sodium Phosphate 10 mg 08/20/23 12:29 08/20/23 13:05 Dexamethasone Sod Phosphate 10 Mg/Ml Vial IVPUSH 08/20/23 12:30 10 mg ONCE ONE Administration Sodium Chloride 1,000 mls @ 999 mls/hr 08/20/23 10:15 08/20/23 12:18 Ns IV 08/20/23 11:15 Infused .Q1H1M DEEPALI Infusion Cefepime HCl 1 gm/ Sodium 50 mls @ 100 mls/hr 08/20/23 12:28 08/20/23 12:53 Chloride IV 08/20/23 12:57 100 mls/hr ONCE ONE Administration Medical Decision Making Medical Decision Making MDM Narrative: Patient looked extremely pale weak. Found on the ground after being discharged yesterday for C diff colitis. IV fluid established. Patient's sugar was over 100 there is no evidence for hypoglycemia. Will send patient for CT scanner additional labs ordered will monitor carefully. 12:30 Patient's CPK is 300 there has no evidence for rhabdo. She had a temperature in the 93.8 range. Cultures obtained. IV fluid bolus given. 30 cc/kilos total ordered +. Patient will receive a dose of cefepime for empiric coverage. TSH added. A dose of Decadron given for question adrenal insufficiency. CT scan of the head C-spine chest abdomen pelvis already done. My interpretation patient's CT scan of the head was grossly negative for any acute evidence of bleeding. My interpretation patient's CT chest showed no acute infiltrate. My interpretation patient's EKG showed a sinus rhythm heart rate is 95 OH QRS QTC within normal limits is no acute ST segment elevation. Patient's white count 11 hemoglobin is 9.5 this is approximately baseline. Patient's VBG showed a pH of 7.37 pCO2 29 PaO2 45 consistent with a venous blood gas but there is no gross metabolic acidosis noted. Patient's bicarb is 17 question secondary to dehydration IV fluid is going. Her lactate is 1.4. First set of troponin came back at 49.3. A 2nd troponin will be ordered. Patient's flu COVID RSV were all negative. Case discussed with the hospitalist team. Will require admission for further monitoring IV hydration Patient's CT scan of the head was grossly negative. CT scan of the neck showed no acute fracture. CT scan of the chest abdomen pelvis shows some nonspecific finding. Will admit patient for further evaluation patient's urine was grossly infected antibiotics already started. Patient's lactate less than 2. There is no evidence for severe sepsis. Hospitalist made aware. Previous sensitivity was checked. Differential Diagnosis Differential Diagnoses: The differential diagnosis associated with the presentation includes Admission/Observation Consideration of admission/observation: Escalation of care including admission/observation considered Consult Healthcare Provider Management of the patient was discussed with: Hospitalist Lab Data MDM Lab Attestation statement: I reviewed the patient's lab results. 08/20/23 11:31 08/20/23 11:28 Labs: Lab Results 08/20/23 08/20/23 08/20/23 Range/Units 10:06 11:28 11:30 WBC (4.8-10.8) X10*3/uL RBC (4.20-5.50) X10*6/uL Hgb (12.0-16.0) g/dl Hct (37.0-47.0) % MCV (80.0-98.0) fL MCH (27.0-33.0) pg MCHC (31.0-35.0) g/dl RDW (11.0-16.0) % Plt Count (160-400) X10*3/uL MPV (9.4-12.3) fL Immature Gran % (Auto) (0.0-0.4) % Neut % (Auto) (45-73) % Lymph % (Auto) (20-40) % Sanders % (Auto) (2-11) % Eos % (Auto) (0-4) % Baso % (Auto) (0-2) % Lymph # (Auto) (1.2-4.9) X10*3/uL Sanders # (Auto) (0.1-1.2) X10*3/uL Eos # (Auto) (0.0-0.4) X10*3/uL Baso # (Auto) (0.0-0.2) X10*3/uL Abs Immat Gran (auto) (0.00-0.03) X10*3/uL Absolute Neuts (auto) (2.0-8.3) x10*3/uL Absolute Nucleated RBC (0.0-0.012) X10*3/uL Nucleated RBC % (auto) (0.0-0.2) /100WBC Smear Tech's Comments Hold Blue Top SEE NOTE VBG pH (7.32-7.43) VBG pCO2 mmHg VBG pO2 mmHg VBG HCO3 (22-26) mmol/L VBG O2 Saturation % VBG Base Excess mmol/L Sodium 141 (135-145) mmol/L Potassium 4.2 (3.3-5.1) mmol/L Chloride 117 H (96-108) mmol/L Carbon Dioxide 17 L (22-29) mmol/L Anion Gap 11 L (12-20) BUN 14 (9-16) mg/dL Creatinine 0.62 (0.5-1.4) mg/dL Estim Creat Clear Calc 57.0 Estimated GFR > 60 POC Glucose 115 (60-115) mg/dL Random Glucose 103 (60-115) mg/dL Lactic Acid (0.5-2.0) mmol/L Calcium 8.0 L (8.4-10.2) mg/dL Total Bilirubin 0.1 (0.0-1.0) mg/dL Direct Bilirubin < 0.2 (0.0-0.5) mg/dL AST 39 H (5-31) U/L ALT 23 (0-31) U/L Alkaline Phosphatase 88 (39-117) U/L Total Creatine Kinase 311 H (26-140) U/L Troponin I High Sens 49.3 H D (<3.5-17.0) ng/L Total Protein 4.5 L (6.5-8.0) g/dL Albumin 2.2 L (3.5-5.0) g/dL TSH 0.62 (0.32-4.0) uIU/mL Urine Color Urine Appearance Urine pH (5.0-9.0) Ur Specific [place] (1.005-1.025) Urine Protein (Neg-Trace) mg/dL Urine Glucose (UA) (Negative) mg/dL Urine Ketones (Negative) mg/dL Urine Blood (Negative) Urine Nitrite (Negative) Ur Leukocyte Esterase (Negative) Urine RBC (0-2) /HPF Urine WBC (0-5) /HPF Ur Squamous Epith Cells (0-2) /HPF Urine Bacteria (None Seen) Hyaline Casts (0-2) /LPF Influenza Type A (PCR) (Negative) Influenza Type B (PCR) (Negative) RSV RNA Qual (PCR) (Negative) SARS-CoV-2 RNA (RT-PCR) (Negative) 08/20/23 08/20/23 08/20/23 Range/Units 11:31 11:32 11:37 WBC 11.6 H (4.8-10.8) X10*3/uL RBC 3.31 L (4.20-5.50) X10*6/uL Hgb 9.5 L (12.0-16.0) g/dl Hct 29.9 L (37.0-47.0) % MCV 90.3 (80.0-98.0) fL MCH 28.7 (27.0-33.0) pg MCHC 31.8 (31.0-35.0) g/dl RDW 14.3 (11.0-16.0) % Plt Count 366 (160-400) X10*3/uL MPV 9.2 L (9.4-12.3) fL Immature Gran % (Auto) 1.1 H (0.0-0.4) % Neut % (Auto) 90.3 H (45-73) % Lymph % (Auto) 6.3 L (20-40) % Sanders % (Auto) 2.0 (2-11) % Eos % (Auto) 0.1 (0-4) % Baso % (Auto) 0.2 (0-2) % Lymph # (Auto) 0.7 L (1.2-4.9) X10*3/uL Sanders # (Auto) 0.2 (0.1-1.2) X10*3/uL Eos # (Auto) 0.0 (0.0-0.4) X10*3/uL Baso # (Auto) 0.0 (0.0-0.2) X10*3/uL Abs Immat Gran (auto) 0.13 H (0.00-0.03) X10*3/uL Absolute Neuts (auto) 10.4 H (2.0-8.3) x10*3/uL Absolute Nucleated RBC 0.000 (0.0-0.012) X10*3/uL Nucleated RBC % (auto) 0.0 (0.0-0.2) /100WBC Smear Tech's Comments VERIFIED Hold Blue Top VBG pH 7.37 (7.32-7.43) VBG pCO2 29 mmHg VBG pO2 45 mmHg VBG HCO3 17 L (22-26) mmol/L VBG O2 Saturation 73.0 % VBG Base Excess -6.9 mmol/L Sodium (135-145) mmol/L Potassium (3.3-5.1) mmol/L Chloride (96-108) mmol/L Carbon Dioxide (22-29) mmol/L Anion Gap (12-20) BUN (9-16) mg/dL Creatinine (0.5-1.4) mg/dL Estim Creat Clear Calc Estimated GFR POC Glucose (60-115) mg/dL Random Glucose (60-115) mg/dL Lactic Acid 1.4 (0.5-2.0) mmol/L Calcium (8.4-10.2) mg/dL Total Bilirubin (0.0-1.0) mg/dL Direct Bilirubin (0.0-0.5) mg/dL AST (5-31) U/L ALT (0-31) U/L Alkaline Phosphatase (39-117) U/L Total Creatine Kinase (26-140) U/L Troponin I High Sens (<3.5-17.0) ng/L Total Protein (6.5-8.0) g/dL Albumin (3.5-5.0) g/dL TSH (0.32-4.0) uIU/mL Urine Color Urine Appearance Urine pH (5.0-9.0) Ur Specific [place] (1.005-1.025) Urine Protein (Neg-Trace) mg/dL Urine Glucose (UA) (Negative) mg/dL Urine Ketones (Negative) mg/dL Urine Blood (Negative) Urine Nitrite (Negative) Ur Leukocyte Esterase (Negative) Urine RBC (0-2) /HPF Urine WBC (0-5) /HPF Ur Squamous Epith Cells (0-2) /HPF Urine Bacteria (None Seen) Hyaline Casts (0-2) /LPF Influenza Type A (PCR) (Negative) Influenza Type B (PCR) (Negative) RSV RNA Qual (PCR) (Negative) SARS-CoV-2 RNA (RT-PCR) (Negative) 08/20/23 08/20/23 Range/Units 11:38 12:50 WBC (4.8-10.8) X10*3/uL RBC (4.20-5.50) X10*6/uL Hgb (12.0-16.0) g/dl Hct (37.0-47.0) % MCV (80.0-98.0) fL MCH (27.0-33.0) pg MCHC (31.0-35.0) g/dl RDW (11.0-16.0) % Plt Count (160-400) X10*3/uL MPV (9.4-12.3) fL Immature Gran % (Auto) (0.0-0.4) % Neut % (Auto) (45-73) % Lymph % (Auto) (20-40) % Sanders % (Auto) (2-11) % Eos % (Auto) (0-4) % Baso % (Auto) (0-2) % Lymph # (Auto) (1.2-4.9) X10*3/uL Sanders # (Auto) (0.1-1.2) X10*3/uL Eos # (Auto) (0.0-0.4) X10*3/uL Baso # (Auto) (0.0-0.2) X10*3/uL Abs Immat Gran (auto) (0.00-0.03) X10*3/uL Absolute Neuts (auto) (2.0-8.3) x10*3/uL Absolute Nucleated RBC (0.0-0.012) X10*3/uL Nucleated RBC % (auto) (0.0-0.2) /100WBC Smear Tech's Comments Hold Blue Top VBG pH (7.32-7.43) VBG pCO2 mmHg VBG pO2 mmHg VBG HCO3 (22-26) mmol/L VBG O2 Saturation % VBG Base Excess mmol/L Sodium (135-145) mmol/L Potassium (3.3-5.1) mmol/L Chloride (96-108) mmol/L Carbon Dioxide (22-29) mmol/L Anion Gap (12-20) BUN (9-16) mg/dL Creatinine (0.5-1.4) mg/dL Estim Creat Clear Calc Estimated GFR POC Glucose (60-115) mg/dL Random Glucose (60-115) mg/dL Lactic Acid (0.5-2.0) mmol/L Calcium (8.4-10.2) mg/dL Total Bilirubin (0.0-1.0) mg/dL Direct Bilirubin (0.0-0.5) mg/dL AST (5-31) U/L ALT (0-31) U/L Alkaline Phosphatase (39-117) U/L Total Creatine Kinase (26-140) U/L Troponin I High Sens (<3.5-17.0) ng/L Total Protein (6.5-8.0) g/dL Albumin (3.5-5.0) g/dL TSH (0.32-4.0) uIU/mL Urine Color Yellow Urine Appearance Cloudy Urine pH 7.0 (5.0-9.0) Ur Specific [place] 1.010 (1.005-1.025) Urine Protein 30 (1+) H (Neg-Trace) mg/dL Urine Glucose (UA) Negative (Negative) mg/dL Urine Ketones Negative (Negative) mg/dL Urine Blood Moderate (2+) H (Negative) Urine Nitrite Negative (Negative) Ur Leukocyte Esterase Large (3+) H (Negative) Urine RBC 11-20 H (0-2) /HPF Urine WBC >50 H (0-5) /HPF Ur Squamous Epith Cells 0-2 (0-2) /HPF Urine Bacteria 4+ (None Seen) Hyaline Casts 0-2 (0-2) /LPF Influenza Type A (PCR) NEGATIVE (Negative) Influenza Type B (PCR) NEGATIVE (Negative) RSV RNA Qual (PCR) NEGATIVE (Negative) SARS-CoV-2 RNA (RT-PCR) NEGATIVE (Negative) Independent Interpretation I performed an independent interpretation of an: EKG (As above) Radiology Impression Discussion of test interpretation with radiology: I have reviewed the radiologist's reading. External Record Review External record reviewed: Inpatient record Chronic Conditions Recent history of C diff just got discharged Critical Care Time Critical Care Time Critical Care Time: Yes Total Critical Care Time: 50 Attestation: I have personally provided 40 minutes of critical care time exclusive of time spent on separately billable procedures. ?Time includes review of lab data, radiology results, discussion with consultants, and monitoring for potential decompensation. ?Interventions were performed as documented above Discharge Plan Discharge Clinical Impression: Acute dehydration, C. difficile colitis, Acute UTI, Hypothermia Patient Disposition: Admitted As Inpatient Prescriptions: No Action (DME) foot inserts See Rx Instructions .Route .MEDSUPPLY Qty: 1 0RF Rx Instructions: As directed (DME) leno.stocking,knee,reg,smal Misc See Rx Instructions .Route Qty: 12 0RF Rx Instructions: As directed metoprolol succinate 25 mg tablet extended release 24 hr 25 mg PO DAILY Qty: 30 5RF atorvastatin 40 mg tablet 40 mg PO BEDTIME 90 Days Qty: 90 1RF pantoprazole 40 mg tablet,delayed release (DR/EC) 40 mg PO DAILY@0630 quetiapine 50 mg tablet 25 mg PO BEDTIME famotidine 20 mg tablet 20 mg PO BID@0900,1200 vancomycin 125 mg Capsule 125 mg PO Q6H Qty: 40 0RF lorazepam 1 mg tablet 1 mg PO BID PRN (Reason: anxiety) 30 Days Qty: 60 5RF temazepam 15 mg capsule 15 mg PO BEDTIME PRN (Reason: sleep) 30 Days Qty: 30 5RF
[2023-08-20] MEDS: 0.9 % Sodium Chloride 1,000 ML 999 ML IV ×2 (10:26→12:53)
--- NOTE | 2023-08-20 10:51 | MHC.EDTECH ---
patient's lab draws delayed by difficulty obtaining specimen and patient being brought stat to CT
[2023-08-20 11:45] LABS: Basophils Percent Auto 0.2 % (0-2); Eosinophils Percent Auto 0.1 % (0-4); Hematocrit 29.9 % (37.0-47.0); Hemoglobin 9.5 g/dl (12.0-16.0); Imm Gran Abs Auto 0.13 X10*3/uL (0.00-0.03); Imm Gran Pct Auto 1.1 % (0.0-0.4); Lymphocytes Absolute Auto 0.7 X10*3/uL (1.2-4.9); Lymphocytes Percent Auto 6.3 % (20-40); MANUAL DIFF FLAG SCAN; Mean Corpuscular HGB Conc 31.8 g/dl (31.0-35.0); Mean Corpuscular Hemoglobin 28.7 pg (27.0-33.0); Mean Corpuscular Volume 90.3 fL (80.0-98.0); Mean Platelet Volume 9.2 fL (9.4-12.3); Monocytes Absolute Auto 0.2 X10*3/uL (0.1-1.2); Neutrophils Absolute Auto 10.4 x10*3/uL (2.0-8.3); Neutrophils Percent Auto 90.3 % (45-73); Platelet Count 366 X10*3/uL (160-400); Red Blood Count 3.31 X10*6/uL (4.20-5.50); Red Cell Distribution Width 14.3 % (11.0-16.0); SCAN SMEAR FLAG 1; White Blood Count 11.6 X10*3/uL (4.8-10.8)
[2023-08-20 11:51] LABS: VBG Base Excess -6.9 mmol/L; VBG HCO3 17 mmol/L (22-26); VBG pCO2 29 mmHg; VBG pH 7.37 (7.32-7.43); VBG pO2 45 mmHg
[2023-08-20 11:52] LABS: Venous Blood Gas Refer to POC result
[2023-08-20 11:53] LABS: Lactic Acid 1.4 mmol/L (0.5-2.0)
[2023-08-20 12:05] LABS: SLIDE REVIEW VERIFIED
[2023-08-20 12:05] LABS: Troponin-I High Sensitivity 49.3 ng/L (<3.5-17.0)
[2023-08-20 12:08] LABS: Alanine Aminotransferase 23 U/L (0-31); Albumin Level 2.2 g/dL (3.5-5.0); Alkaline Phosphatase 88 U/L (39-117); Anion Gap 11 (12-20); Aspartate Amino Transferase 39 U/L (5-31); Bilirubin Direct < 0.2 mg/dL (0.0-0.5); Bilirubin Total 0.1 mg/dL (0.0-1.0); Blood Urea Nitrogen 14 mg/dL (9-16); Carbon Dioxide 17 mmol/L (22-29); Chloride 117 mmol/L (96-108); Estimated Glomerular Filt Rate > 60; Glucose Random 103 mg/dL (60-115); Potassium 4.2 mmol/L (3.3-5.1); Sodium 141 mmol/L (135-145); Total Protein 4.5 g/dL (6.5-8.0)
[2023-08-20 12:26] LABS: Influenza A PCR NEGATIVE (Negative); Influenza B PCR NEGATIVE (Negative); Resp Syncy Virus RNA Qual PCR NEGATIVE (Negative); SARS COV2 PCR INHOUSE NEGATIVE (Negative)
[2023-08-20] MEDS: cefEPime HCl 1 GM in 0.9 % Sodium Chloride 50 ML IV (12:53)
[2023-08-20 12:59] LABS: Appearance Urine Cloudy; Color Urine Yellow; Glucose Urine UA Negative (Negative); Leukocyte Esterase Urine Large (3+) (Negative); Nitrite Urine Negative (Negative); UMIC TRIGGER UACC YES; Urine Blood Moderate (2+) (Negative); Urine Ketones Negative (Negative); Urine Protein 30 (1+) mg/dL (Neg-Trace)
--- NOTE | 2023-08-20 13:01 | PC.NURSE ---
Per ems upon arrival sating in the 70`s. Placed on non-rebreather at 15l
[2023-08-20 13:02] LABS: Bacteria Urine 4+ (None Seen); Hyaline Casts Urine 0-2 /LPF (0-2); Squamous Epithelial Cell Urine 0-2 /HPF (0-2); UACC Culture Trigger YES; WBC Urine >50 /HPF (0-5)
[2023-08-20] MEDS: dexAMETHasone sod phosphate 10 MG/ML VIAL IVPUSH (13:05)
--- NOTE | 2023-08-20 13:13 | PC.NURSE ---
Alert and responsive, vss, sating 92% on RA. continues on bear hugger, core temp 95.5
[2023-08-20 13:27] LABS: Thyroid Stimulating Hormone 0.62 uIU/mL (0.32-4.0)
--- NOTE | 2023-08-20 14:12 | PHA.MEDREC ---
Pharmacy Consult ? Medication Reconciliation Pharmacy has completed the medication reconciliation. Confirmed medication from discharge records (patient discharged from this hospital yesterday). Spoke to caregiver (Miguelina [phone]) she reports that patient took her Vancomycin (125mg Q6h) last night but not today.
--- NOTE | 2023-08-20 14:20 | PM.IMHP ---
History of Present Illness Date of Service: 08/20/23 <ONEL Gay - Last Filed: 08/20/23 15:49> Attending physician on admission: Jovi Gonzalez <ONEL Gay - Last Filed: 08/20/23 15:49> Chief Complaint: fall <ONEL Gay - Last Filed: 08/20/23 15:49> 72yo F with malnutrition, stress induced cardiomyopathy with reduced EF, Raynaud's phenomenon, GERD, mood disorder presented to the ED after being found on the ground by aid and contacted EMS. On arrival, pt unable to provide history, just mumbling. On admission, pt very weak, frail, mumbling speech but provides some history. She was discahrged yesterday after being admitted 08/13-08/18 for cdiff proctocolitis. Had been recommended for STR but declined and VNA but declined. Per aid, since discharge has been very weak with malaise. Pt reports she is still incontinence of diarrhea but denies any other complaints. No pain. Feels weak and requesting to eat and drink. Unclear how long patient was on the ground for. On arrival, pt hypothermic at 93.8, placed on aline hugger with improvement in temp to 97.0 on admission. Blood pressures have been soft which appears consistent with baseline, no hypotension. Per EMS, pt hypoxic in the 70s on arrival and placed on non rebreather. No hypoxia on admission, 92% on RA. Milk leukocytosis 11.6. Stable normocytic anemia 9.5/29.9%. Renal function baseline, electrolyte levels normal except for chloride 117, CO2 17. Total CK 311. Initial troponin 49.3, repeat pending. Albumin 2.2. TSH 0.62. UA significant for 3+ leukocytes, 2+ blood, negative nitrites, positive urinary sediment, 4+ bacteria. Negative for influenza, COVID-19, RSV. Head CT negative for any acute intracranial abnormality. Cervical spine CT negative for any acute osseous abnormality. Chest CT/abd pelvis shows mild pulmonary emphysema levels increased size pleural effusion and new small right pleural effusion associated with atelectasis and no overt pneumonia. No pulmonary edema. Dilated esophagus. In the ED, got 2L IV NS, IV cefepime, 10mg dexamethasone. <ONEL Gay - Last Filed: 08/20/23 15:49> Review of Systems Review of Systems: Yes Unobtainable due to mental condition <ONEL Gay - Last Filed: 08/20/23 15:49> [facility] Medical History: Medical History External hemorrhoids Epidermal inclusion cyst White coat syndrome with high blood pressure but without hypertension Dry eyes Hyponatremia Hypercalcemia Diarrhea Renal calculi Constipation by delayed colonic transit GERD (gastroesophageal reflux disease) UTI (urinary tract infection) Villous adenoma of colon Insomnia Raynauds disease Anxiety <ONEL Gay - Last Filed: 08/20/23 15:49> Family History: Family History Father Medical history unknown Mother Dementia Alzheimers disease Mental health disorder Brother Leukemia Sister Medical history unknown <ONEL Gay - Last Filed: 08/20/23 15:49> Surgical History: Surgical History History of bronchoscopy History of tonsillectomy <ONEL Gay - Last Filed: 08/20/23 15:49> Social History: Social History Household Members: None Household Members Other:: [facility] Housing: Apartment Housing Other:: [facility] Do you presently have visiting nurse or other home services: Yes ([employer]) Alcohol intake: former Patient Tobacco Use Status: Former Tobacco user Tobacco use type: Cigarette Smoked in Last 30 Days: No e-Cigarette/Vaping Use: Never Used Second Hand Smoke Exposure: No Use of substances other than those prescribed or required for medical reasons: No Currently Displaying Signs/Symptoms of Drug Intoxication Withdrawal: No Have you been hit, kicked, punched, or otherwise hurt by someone within the past year? If so, by whom?: No Do you feel safe in your current relationship?: No Current Relationship Is there a partner from a previous relationship who is making you feel unsafe now?: No Are you made to feel afraid or neglected: No Advance Directives: Yes Advance Directives on File: Yes Advance Directives Date on File: 11/23/22 Do you have thoughts of harming others: None Do you have a plan to hurt others: No Plan Recently lost weight without trying: No Nutrition Risks: On aspiration precautions Patient : No : No Poor oral hygiene: No service: No Current occupational status: retired Cognitive needs: No Hearing needs: No Vision needs: Yes <ONEL Gay - Last Filed: 08/20/23 15:49> Meds Allergies/Adverse reactions: Allergies Allergy/AdvReac Type Severity Reaction Status Date / Time No Known Allergies Allergy Verified 05/17/23 13:06 <ONEL Gay - Last Filed: 08/20/23 15:49> Active Medications: Current Medications Acetaminophen (Acetaminophen 325 Mg Tablet) 650 mg PO Q6H PRN PRN Reason: Pain, Mild (Pain Scale 1-3) Atorvastatin Calcium (Atorvastatin Calcium 40 Mg Tablet) 40 mg PO BEDTIME DEEPALI Famotidine (Famotidine 20 Mg Tablet) 20 mg PO BID@0900,1200 [facility] Lactated Ringer's (Lr) 1,000 mls @ 100 mls/hr IVCONT .Q10H [facility] Lorazepam (Lorazepam 1 Mg Tablet) 1 mg PO BID PRN PRN Reason: anxiety Metoprolol Succinate (Metoprolol Succinate Er 25 Mg Tab.Er.24h) 25 mg PO DAILY [facility]; Protocol Non-Formulary Medication (Pantoprazole) 40 mg PO DAILY@0630 [facility] Ondansetron HCl (Ondansetron Hcl 4 Mg/2 Ml Vial) 4 mg IVPUSH Q8H PRN PRN Reason: Nausea and Vomiting Quetiapine Fumarate (Quetiapine Fumarate 25 Mg Tablet) 25 mg PO BEDTIME [facility] Senna (Sennosides 8.6 Mg Tablet) 17.2 mg PO BEDTIME PRN PRN Reason: Constipation Sodium Chloride (0.9 % Sodium Chloride Flush 3 Ml Syringe) 3 ml IVFLUSH QSHIFT [facility] Temazepam (Temazepam 15 Mg Capsule) 15 mg PO BEDTIME PRN PRN Reason: sleep Vancomycin HCl (Vancomycin Hcl 125 Mg Capsule) 125 mg PO Q6H [facility] Stop: 08/30/23 08:16 <ONEL Gay Last Filed: 08/20/23 15:49> Home medications: Home Medications Medication Instructions Recorded Confirmed Last Taken Type pantoprazole 40 mg tablet,delayed 40 mg PO DAILY@0630 07/16/23 08/20/23 08/19/23 History release quetiapine 50 mg tablet 25 mg PO BEDTIME 07/16/23 08/20/23 08/19/23 History famotidine 20 mg tablet 20 mg PO BID@0900,1200 08/14/23 08/20/23 08/19/23 History <ONEL Gay - Last Filed: 08/20/23 15:49> Physical Exam Vital Signs and Narrative: Vital Signs: Last Vital Signs Temp 96.1 F L 08/20/23 13:58 Pulse 93 08/20/23 13:58 Resp 21 H 08/20/23 13:58 BP 101/61 08/20/23 13:58 Pulse Ox 92 08/20/23 13:58 O2 Del Method Room Air 08/20/23 13:58 O2 Flow Rate 5 08/20/23 12:19 Oxygen Flow Rate 15 08/20/23 10:01 BMI result Body Mass Index 17.2 <ONEL Gay - Last Filed: 08/20/23 15:49> Constitutional - Awake, weak/lethargic, No apparent distress Eyes - PERRLA, EOMI Cardiovascular - S1S2, RRR, No edema Respiratory - Normal lung expansion, Normal respiratory effort, No respiratory distress, diminished bases Gastrointestinal - NT, softly distended, +BS; No rebound or guarding Extremities - no calf tenderness bilaterally, no swelling Skin - Warm/Dry Neurological - Awake & oriented x3, answering basic questions but not providing much history, mumbling Psychological - Appropriate affect <ONEL Gay - Last Filed: 08/20/23 15:49> Results Labs CBC and Chem 7: 08/21/23 06:08 08/21/23 06:08 <ONEL Gay - Last Filed: 08/20/23 15:49> Labs: Laboratory Results - last 24 hr 08/20/23 08/20/23 08/20/23 10:06 11:28 11:30 MCV MCH MCHC RDW Plt Count MPV Immature Gran % (Auto) Neut % (Auto) Lymph % (Auto) Giles % (Auto) Eos % (Auto) Baso % (Auto) Lymph # (Auto) Giles # (Auto) Eos # (Auto) Baso # (Auto) Abs Immat Gran (auto) Absolute Neuts (auto) Absolute Nucleated RBC Nucleated RBC % (auto) Smear Tech's Comments Hold Blue Top SEE NOTE VBG pH VBG pCO2 VBG pO2 VBG HCO3 VBG O2 Saturation VBG Base Excess Anion Gap 11 L Estim Creat Clear Calc 57.0 Estimated GFR > 60 POC Glucose 115 Random Glucose 103 Lactic Acid Calcium 8.0 L Total Bilirubin 0.1 Direct Bilirubin < 0.2 AST 39 H ALT 23 Alkaline Phosphatase 88 Total Creatine Kinase 311 H Troponin I High Sens 49.3 H D Total Protein 4.5 L Albumin 2.2 L TSH 0.62 Urine Color Urine Appearance Urine pH Ur Specific [place] Urine Protein Urine Glucose (UA) Urine Ketones Urine Blood Urine Nitrite Ur Leukocyte Esterase Urine RBC Urine WBC Ur Squamous Epith Cells Urine Bacteria Hyaline Casts Influenza Type A (PCR) Influenza Type B (PCR) RSV RNA Qual (PCR) SARS-CoV-2 RNA (RT-PCR) 08/20/23 08/20/23 08/20/23 11:31 11:32 11:37 MCV 90.3 MCH 28.7 MCHC 31.8 RDW 14.3 Plt Count 366 MPV 9.2 L Immature Gran % (Auto) 1.1 H Neut % (Auto) 90.3 H Lymph % (Auto) 6.3 L Giles % (Auto) 2.0 Eos % (Auto) 0.1 Baso % (Auto) 0.2 Lymph # (Auto) 0.7 L Giles # (Auto) 0.2 Eos # (Auto) 0.0 Baso # (Auto) 0.0 Abs Immat Gran (auto) 0.13 H Absolute Neuts (auto) 10.4 H Absolute Nucleated RBC 0.000 Nucleated RBC % (auto) 0.0 Smear Tech's Comments VERIFIED Hold Blue Top VBG pH 7.37 VBG pCO2 29 VBG pO2 45 VBG HCO3 17 L VBG O2 Saturation 73.0 VBG Base Excess -6.9 Anion Gap Estim Creat Clear Calc Estimated GFR POC Glucose Random Glucose Lactic Acid 1.4 Calcium Total Bilirubin Direct Bilirubin AST ALT Alkaline Phosphatase Total Creatine Kinase Troponin I High Sens Total Protein Albumin TSH Urine Color Urine Appearance Urine pH Ur Specific [place] Urine Protein Urine Glucose (UA) Urine Ketones Urine Blood Urine Nitrite Ur Leukocyte Esterase Urine RBC Urine WBC Ur Squamous Epith Cells Urine Bacteria Hyaline Casts Influenza Type A (PCR) Influenza Type B (PCR) RSV RNA Qual (PCR) SARS-CoV-2 RNA (RT-PCR) 08/20/23 08/20/23 11:38 12:50 MCV MCH MCHC RDW Plt Count MPV Immature Gran % (Auto) Neut % (Auto) Lymph % (Auto) Giles % (Auto) Eos % (Auto) Baso % (Auto) Lymph # (Auto) Giles # (Auto) Eos # (Auto) Baso # (Auto) Abs Immat Gran (auto) Absolute Neuts (auto) Absolute Nucleated RBC Nucleated RBC % (auto) Smear Tech's Comments Hold Blue Top VBG pH VBG pCO2 VBG pO2 VBG HCO3 VBG O2 Saturation VBG Base Excess Anion Gap Estim Creat Clear Calc Estimated GFR POC Glucose Random Glucose Lactic Acid Calcium Total Bilirubin Direct Bilirubin AST ALT Alkaline Phosphatase Total Creatine Kinase Troponin I High Sens Total Protein Albumin TSH Urine Color Yellow Urine Appearance Cloudy Urine pH 7.0 Ur Specific [place] 1.010 Urine Protein 30 (1+) H Urine Glucose (UA) Negative Urine Ketones Negative Urine Blood Moderate (2+) H Urine Nitrite Negative Ur Leukocyte Esterase Large (3+) H Urine RBC 11-20 H Urine WBC >50 H Ur Squamous Epith Cells 0-2 Urine Bacteria 4+ Hyaline Casts 0-2 Influenza Type A (PCR) NEGATIVE Influenza Type B (PCR) NEGATIVE RSV RNA Qual (PCR) NEGATIVE SARS-CoV-2 RNA (RT-PCR) NEGATIVE <ONEL Gay - Last Filed: 08/20/23 15:49> Imaging Radiologist's Impressions: Impressions Abdomen/Pelvis CT 08/20/23 11:00 IMPRESSION: 1. Interval marked progression of Bilateral posterior lung bases extensive airspace disease and development of bilateral moderate pleural effusions are partially visualized. 2. Unchanged Bilateral nonobstructive renal calculi. 3. Interval development of Trace perihepatic ascites and small posterior pelvic cul-de-sac free fluid. 4. Interval appearance of Mural thickening in the lower ascending colon and cecum, could be due to luminal collapse or ascending colitis. 5. Unchanged moderate T11 compression fracture and bilateral inferior pubic rami fractures. 6. Unchanged Marked L1-L2 levoscoliosis and multilevel advanced degenerative lumbar disc disease. Cervical Spine CT 08/20/23 11:00 IMPRESSION: * No intracranial hemorrhage or other acute intracranial pathology compared to 08/14/2023. * No fracture or chronic subluxation in the degenerated cervical spine. Chest CT 08/20/23 11:00 IMPRESSION: * Mild pulmonary emphysema. * Interval increased size of left pleural effusion and new small right pleural effusion associated with bibasilar atelectasis. No overt pneumonia. Also, no evidence of pulmonary edema. * The esophagus is chronically distended. This could be a manifestation of severe esophageal dysfunction, chronic distal stricture or achalasia. * The blood within cardiac chambers is relatively hypodense compared to myocardium. Correlate for history of anemia. * A nonobstructing stone is seen in the left renal pelvis. * Diffuse osteoporosis. Skeletal findings include old compression fractures of the T4 and T11 vertebral bodies. There is a new mild concave depression of the T4 superior endplate. Head CT 08/20/23 11:00 IMPRESSION: * No intracranial hemorrhage or other acute intracranial pathology compared to 08/14/2023. * No fracture or chronic subluxation in the degenerated cervical spine. <ONEL Gay - Last Filed: 08/20/23 15:49> Assessment and Plan (1) Acute UTI: Status: Acute <ONEL Gay - Last Filed: 08/20/23 15:49> (2) C. difficile colitis: Status: Acute <ONEL Gay - Last Filed: 08/20/23 15:49> (3) Metabolic acidosis: Status: Acute <ONEL Gay - Last Filed: 08/20/23 15:49> (4) Metabolic encephalopathy: Status: Acute <ONEL Gay - Last Filed: 08/20/23 15:49> (5) Aspiration pneumonia: Status: Acute <ONEL Gay - Last Filed: 08/20/23 15:49> 72yo F with malnutrition, stress induced cardiomyopathy with reduced EF, Raynaud's phenomenon, GERD, mood disorder recently admitted for CDiff proctocolitis from 08/13-08/18 readmitted for UTI with metabolic encephalopathy and sepsis. #Acute UTI with sepsis -hypothermic to 93, mild tachycardia. NO lactic acidosis, end organ damange. No severe sepsis/shock -weaned from aline hugger on admission -IV unasyn (initiated 08/19) -monitor cbc, cultures #?Aspiration pneumonia -no hypoxia on admission but hypoxic in 70s per ems -CT shows interval marked progression of bilateral posterior lung bases and moderate pleural effusions with associated atelectasis -IV unasyn (initiated 08/19) -Passed nursing swallow eval. MOre awake. Regular chopped diet #Acute metabolic encephalopathy- improving on admission -2/2 to above -monitor mentation #CDiff proctocolitis -dx 08/14 -ct abd/pelvis shows mural thickening in lower ascending colon and cecum concerning for luminal collapse, more likely ascending colitis. There is also small fluid in pelvis cul-de-sac and trace perihepatic ascites -continue PO vanco x 10 days (initiated 08/19) #Acute hyperchloremic metabolic acidosis -due to diarrhea -change NS to gentle LR -monitor lytes #Moderate protein calorite malnutrition -supplement #HTN -bp soft -resume metoprolol am #HLD -statin #Mood disorder -continue home meds #Weakness -pt eval DVT prophylaxis- heparin dnr/dni Pt requires inpt stay at least 2 midnights for management of sepsis and metabolic encephalopathy secondary to UTI and possible aspiration pneumonia requiring IV abx, close monitoring of mentation <ONEL Gay - Last Filed: 08/20/23 15:49> 72yo F with malnutrition, stress induced cardiomyopathy with reduced EF, Raynaud's phenomenon, GERD, mood disorder recently admitted for CDiff proctocolitis from 08/13-08/18 readmitted for UTI with metabolic encephalopathy and sepsis. #Acute UTI with sepsis -hypothermic to 93, mild tachycardia. NO lactic acidosis, end organ damange. No severe sepsis/shock -weaned from aline hugger on admission -IV unasyn (initiated 08/19) -monitor cbc, cultures #?Aspiration pneumonia -no hypoxia on admission but hypoxic in 70s per ems -CT shows interval marked progression of bilateral posterior lung bases and moderate pleural effusions with associated atelectasis -IV unasyn (initiated 08/19) -Passed nursing swallow eval. MOre awake. Regular chopped diet #Acute metabolic encephalopathy- improving on admission -2/2 to above -monitor mentation #CDiff proctocolitis -dx 08/14 -ct abd/pelvis shows mural thickening in lower ascending colon and cecum concerning for luminal collapse, more likely ascending colitis. There is also small fluid in pelvis cul-de-sac and trace perihepatic ascites -continue PO vanco x 10 days (initiated 08/19) #Acute hyperchloremic metabolic acidosis -due to diarrhea -change NS to gentle LR -monitor lytes #Moderate protein calorite malnutrition -supplement #HTN -bp soft -resume metoprolol am #HLD -statin #Mood disorder -continue home meds #Weakness -pt eval DVT prophylaxis- heparin dnr/dni Pt requires inpt stay at least 2 midnights for management of sepsis and metabolic encephalopathy secondary to UTI and possible aspiration pneumonia requiring IV abx, close monitoring of mentation Addendum to history and physical by the advanced practice provider, ONEL Gay I interviewed and examined the patient. I discussed their presentation and management with the MARGE. I reviewed the history and physical and agree with the documentation, with the following additions and corrections: 72yo F with malnutrition, stress induced cardiomyopathy with reduced EF, Raynaud's phenomenon, GERD, mood disorder recently admitted here 08/13-08/19/23 for severe C. difficile colitis then discharged home. Found down on ground by [employer], EMS called and reported hypoxia, though resolved by the time of arrival in ED. Arrived weak/fraile, confused and hypothermic. Admitted for sepsis due to UTI, ?aspiration pneumonia sepsis due to UTI, ?aspiration PNA - amp/sul 08/19- [due to hx Enterococcus], follow UCx + BCx, passed bedside swallow evaluation hypothermia - resolved acute encephalopathy due to infection - resolved severe C. difficile proctocolitis - PO vancomycin 08/14-08/28 acute metabolic acidosis due to diarrhea - continue LR HTN - resume metoprolol succinate HLD - statin mood disorder - lorazepam, temazepam, quetiapine VTE ppx - UFH dispo - will certainly require STR In my clinical judgment, the patient requires continued inpatient hospitalization for the following reasons: IV ABX, IV fluids <Jovi Gonzalez MD - Last Filed: 08/21/23 10:44> Quality Stroke Does the patient have a stroke diagnosis?: No <ONEL Gay - Last Filed: 08/20/23 15:49> VTE Prior VTE?: No <ONEL Gay - Last Filed: 08/20/23 15:49> VTE Risk Level:: Medical - moderate - high <ONEL Gay - Last Filed: 08/20/23 15:49> VTE Device Contraindication: Treatment Not Indicated <ONEL Gay - Last Filed: 08/20/23 15:49> VTE Drug Contraindication: N/A - Med Ordered <ONEL Gay - Last Filed: 08/20/23 15:49>
[2023-08-20] MEDS: Lactated Ringers 1,000 ML 100 ML IVCONT (14:42)
--- NOTE | 2023-08-20 15:10 | PC.NURSE ---
LR decreased to 75mls per provider, Albumin on hold d/t increase in BP. Patient passed bedside swallow, stating she wants to eat, provider notified
--- NOTE | 2023-08-20 15:13 | PC.NURSE ---
Laney ordonez removed per provider order temp 98.1
[2023-08-20 15:32] LABS: Troponin-I High Sensitivity 38.9 ng/L (<3.5-17.0)
[2023-08-20] MEDS: Ampicillin Sodium/Sulbactam Na 3 GM in 0.9 % Sodium Chloride 100 ML IV ×2 (16:31→22:46)
[2023-08-20] MEDS: Heparin Sodium,Porcine 5,000 UNIT/ML VIAL 5000 UNIT SUBCUT (16:31)
--- NOTE | 2023-08-20 18:23 | PC.NURSE ---
Provider notified of BP, order obtained
[2023-08-20] MEDS: Albumin Human 25 % 100 ML IV ×2 (18:44→20:15)
[2023-08-20] MEDS: Atorvastatin Calcium 40 MG TABLET PO (20:15)
[2023-08-20] MEDS: QUEtiapine Fumarate 25 MG TABLET PO (20:15)
[2023-08-20] MEDS: LORazepam 1 MG TABLET PO (20:15)
[2023-08-20] MEDS: vancomycin HCL 125 MG CAPSULE PO (20:15)
[2023-08-20 21:05] LABS: Influenza A PCR NEGATIVE (Negative); Influenza B PCR NEGATIVE (Negative); Resp Syncy Virus RNA Qual PCR NEGATIVE (Negative); SARS COV2 PCR INHOUSE NEGATIVE (Negative)
--- NOTE | 2023-08-20 22:54 | PC.NURSE ---
Pt arrived to this unit at [id number],IRA Bolaños is admitting patient
[2023-08-21] MEDS: 0.9 % Sodium Chloride Flush 3 ML SYRINGE IVFLUSH ×2 (00:09→09:46)
[2023-08-21] MEDS: Temazepam 15 MG CAPSULE PO (00:09)
[2023-08-21] MEDS: vancomycin HCL 125 MG CAPSULE PO ×5 (00:09→23:08)
[2023-08-21] MEDS: Lactated Ringers 1,000 ML 100 ML IVCONT ×2 (03:11→16:45)
[2023-08-21 03:19] VITALS: BP 98/50; PULSE 92; RESP 16; TEMP 36.2; O2SAT 91
[2023-08-21] MEDS: Ampicillin Sodium/Sulbactam Na 3 GM in 0.9 % Sodium Chloride 100 ML IV ×4 (03:22→21:20)
[2023-08-21] MEDS: LORazepam 1 MG TABLET PO (03:22)
[2023-08-21] MEDS: Heparin Sodium,Porcine 5,000 UNIT/ML VIAL 5000 UNIT SUBCUT ×2 (03:22→15:53)
[2023-08-21] MEDS: Omeprazole 20 MG CAPSULE.DR PO (05:38)
[2023-08-21 06:38] LABS: MANUAL DIFF FLAG NO
[2023-08-21 06:57] LABS: Basophils Percent Auto 0.2 % (0-2); Eosinophils Percent Auto 0.2 % (0-4); Hematocrit 23.5 % (37.0-47.0); Hemoglobin 7.5 g/dl (12.0-16.0); Imm Gran Abs Auto 0.07 X10*3/uL (0.00-0.03); Imm Gran Pct Auto 0.7 % (0.0-0.4); Lymphocytes Absolute Auto 1.8 X10*3/uL (1.2-4.9); Lymphocytes Percent Auto 18.8 % (20-40); Mean Corpuscular HGB Conc 31.9 g/dl (31.0-35.0); Mean Corpuscular Hemoglobin 28.3 pg (27.0-33.0); Mean Corpuscular Volume 88.7 fL (80.0-98.0); Monocytes Absolute Auto 0.8 X10*3/uL (0.1-1.2); Monocytes Percent Auto 7.9 % (2-11); Neutrophils Absolute Auto 6.9 x10*3/uL (2.0-8.3); Neutrophils Percent Auto 72.2 % (45-73); Platelet Count 370 X10*3/uL (160-400); Red Blood Count 2.65 X10*6/uL (4.20-5.50); Red Cell Distribution Width 14.5 % (11.0-16.0); White Blood Count 9.5 X10*3/uL (4.8-10.8)
[2023-08-21 07:05] LABS: Blood Urea Nitrogen 14 mg/dL (9-16); Calcium 8.4 mg/dL (8.4-10.2); Creatinine Clr Calc Pharmacy 45.8; Estimated Glomerular Filt Rate > 60; Glucose Random 118 mg/dL (60-115)
[2023-08-21 07:10] LABS: Anion Gap 8 (12-20); Carbon Dioxide 19 mmol/L (22-29); Chloride 119 mmol/L (96-108); Potassium 3.3 mmol/L (3.3-5.1); Sodium 143 mmol/L (135-145)
[2023-08-21 07:43] LABS: C Reactive Protein 1.57 mg/dL (< or = 0.50)
[2023-08-21 07:56] VITALS: BP 115/61; PULSE 88; RESP 18; TEMP 36.9; O2SAT 91
[2023-08-21 08:03] LABS: Procalcitonin 0.13 ng/mL
[2023-08-21 08:48] LABS: Immature Retic Fraction 24.7 % (3.0-15.9); Reticulocyte Percent 1.1 % (0.5-1.8); Reticulocytes Absolute 0.028 X10*6/uL (0.026-0.095)
[2023-08-21 09:07] LABS: Iron 31 mcg/dL (30-160); Lactate Dehydrogenase 205 U/L (122-220); Percent Iron Saturation 30 % (15-50); Total Iron Binding Capacity 103 mcg/dL (228-428); Unsaturated Iron Binding 72 ug/dL
[2023-08-21 09:26] LABS: Ferritin 254 ng/mL (10-250)
[2023-08-21] MEDS: Metoprolol Succinate ER 25 MG TAB.ER.24H PO (09:45)
[2023-08-21] MEDS: Famotidine 20 MG TABLET PO ×2 (09:45→12:23)
[2023-08-21] MEDS: LORazepam 0.5 MG TABLET PO ×3 (09:49→23:08)
[2023-08-21 10:06] VITALS: BP 115/61; PULSE 88; O2SAT 91
--- NOTE | 2023-08-21 10:44 | P.PNIM_ITS ---
Subjective Subjective Date of Service: 08/21/23 Interval History: feels better hypothermia resolved having diarrhea some cough but no dyspnea Review of Systems Review of Systems: Yes all other systems are reviewed and are negative Physical Exam 2 Vital Signs: Vital Signs: Last Vital Signs Temp 98.5 F 08/21/23 07:56 Pulse 88 08/21/23 10:06 Resp 18 08/21/23 07:56 BP 115/61 08/21/23 10:06 Pulse Ox 91 L 08/21/23 10:06 O2 Del Method Room Air 08/21/23 07:56 O2 Flow Rate 5 08/20/23 12:19 Oxygen Flow Rate 15 08/20/23 10:01 BMI result Body Mass Index 17.2 Gen: in no acute distress, weak/frail HEENT: sclera anicteric, moist mucus membranes Neck: supple Lungs: clear to auscultation bilaterally Heart: regular rate and rhythm, no murmurs Abd: soft, non-tender, non-distended Ext: no edema Skin: warm/well-perfused Neuro: alert and oriented x3, no focal findings Psych: appropriate affect Objective Data Active Medications Acetaminophen (Acetaminophen 325 Mg Tablet) 650 mg PO Q6H PRN PRN Reason: Pain, Mild (Pain Scale 1-3) Atorvastatin Calcium (Atorvastatin Calcium 40 Mg Tablet) 40 mg PO BEDTIME [facility] Last Admin: 08/20/23 20:15 Dose: 40 mg Documented By: ELVIE Famotidine (Famotidine 20 Mg Tablet) 20 mg PO BID@0900,1200 [facility] Last Admin: 08/21/23 09:45 Dose: 20 mg Documented By: CORINNE Heparin Sodium (Porcine) (Heparin Sodium,Porcine 5,000 Unit/Ml Vial) 5,000 unit SUBCUT Q12H [facility] Last Admin: 08/21/23 03:22 Dose: 5,000 unit Documented By: LORRAINE Lactated Ringer's (Lr) 1,000 mls @ 75 mls/hr IVCONT .[id number] [facility] Last Admin: 08/21/23 03:11 Dose: 100 mls/hr Documented By: LORRAINE Ampicillin Sodium/Sulbactam (Sodium 3 gm/ Sodium Chloride) 100 mls @ 200 mls/hr IV Q6H [facility] Last Infusion: 08/21/23 10:38 Dose: Infused Documented By: CORINNE Lorazepam (Lorazepam 0.5 Mg Tablet) 0.5 mg PO Q6H PRN PRN Reason: anxiety Last Admin: 08/21/23 09:49 Dose: 0.5 mg Documented By: CORINNE Metoprolol Succinate (Metoprolol Succinate Er 25 Mg Tab.Er.24h) 25 mg PO DAILY [facility]; Protocol Last Admin: 08/21/23 09:45 Dose: 25 mg Documented By: CORINNE Omeprazole (Omeprazole 20 Mg Capsule.Dr) 20 mg PO DAILY@0630 [facility] Last Admin: 08/21/23 05:38 Dose: 20 mg Documented By: LORRAINE Ondansetron HCl (Ondansetron Hcl 4 Mg/2 Ml Vial) 4 mg IVPUSH Q8H PRN PRN Reason: Nausea and Vomiting Quetiapine Fumarate (Quetiapine Fumarate 25 Mg Tablet) 25 mg PO BEDTIME [facility] Last Admin: 08/20/23 20:15 Dose: 25 mg Documented By: ELVIE Senna (Sennosides 8.6 Mg Tablet) 17.2 mg PO BEDTIME PRN PRN Reason: Constipation Sodium Chloride (0.9 % Sodium Chloride Flush 3 Ml Syringe) 3 ml IVFLUSH QSHIFT [facility] Last Admin: 08/21/23 09:46 Dose: 3 ml Documented By: CORINNE Temazepam (Temazepam 15 Mg Capsule) 15 mg PO BEDTIME PRN PRN Reason: sleep Last Admin: 08/21/23 00:09 Dose: 15 mg Documented By: LORRAINE Vancomycin HCl (Vancomycin Hcl 125 Mg Capsule) 125 mg PO Q6H [facility] Stop: 08/30/23 12:01 Last Admin: 08/21/23 05:38 Dose: 125 mg Documented By: LORRAINE Labs 08/21/23 06:08 08/21/23 06:08 Labs: Laboratory Results - last 24 hr 08/20/23 08/20/23 08/20/23 11:28 11:30 11:31 MCV 90.3 MCH 28.7 MCHC 31.8 RDW 14.3 Plt Count 366 MPV 9.2 L Immature Gran % (Auto) 1.1 H Neut % (Auto) 90.3 H Lymph % (Auto) 6.3 L [place] % (Auto) 2.0 Eos % (Auto) 0.1 Baso % (Auto) 0.2 Lymph # (Auto) 0.7 L [place] # (Auto) 0.2 Eos # (Auto) 0.0 Baso # (Auto) 0.0 Abs Immat Gran (auto) 0.13 H Absolute Neuts (auto) 10.4 H Absolute Nucleated RBC 0.000 Nucleated RBC % (auto) 0.0 Smear Tech's Comments VERIFIED Absolute Retic Percent Retic Immature Retic Fraction Retic Hgb Equivalent Hold Blue Top SEE NOTE VBG pH VBG pCO2 VBG pO2 VBG HCO3 VBG O2 Saturation VBG Base Excess Anion Gap 11 L Estim Creat Clear Calc 57.0 Estimated GFR > 60 Random Glucose 103 Lactic Acid Calcium 8.0 L Iron TIBC % Saturation Unsat Iron Binding Ferritin Total Bilirubin 0.1 Direct Bilirubin < 0.2 AST 39 H ALT 23 Alkaline Phosphatase 88 Lactate Dehydrogenase Total Creatine Kinase 311 H Troponin I High Sens 49.3 H D C-Reactive Protein Total Protein 4.5 L Albumin 2.2 L Procalcitonin TSH 0.62 Urine Color Urine Appearance Urine pH Ur Specific [place] Urine Protein Urine Glucose (UA) Urine Ketones Urine Blood Urine Nitrite Ur Leukocyte Esterase Urine RBC Urine WBC Ur Squamous Epith Cells Urine Bacteria Hyaline Casts Influenza Type A (PCR) Influenza Type B (PCR) RSV RNA Qual (PCR) SARS-CoV-2 RNA (RT-PCR) 08/20/23 08/20/23 08/20/23 11:32 11:37 11:38 MCV MCH MCHC RDW Plt Count MPV Immature Gran % (Auto) Neut % (Auto) Lymph % (Auto) [place] % (Auto) Eos % (Auto) Baso % (Auto) Lymph # (Auto) [place] # (Auto) Eos # (Auto) Baso # (Auto) Abs Immat Gran (auto) Absolute Neuts (auto) Absolute Nucleated RBC Nucleated RBC % (auto) Smear Tech's Comments Absolute Retic Percent Retic Immature Retic Fraction Retic Hgb Equivalent Hold Blue Top VBG pH 7.37 VBG pCO2 29 VBG pO2 45 VBG HCO3 17 L VBG O2 Saturation 73.0 VBG Base Excess -6.9 Anion Gap Estim Creat Clear Calc Estimated GFR Random Glucose Lactic Acid 1.4 Calcium Iron TIBC % Saturation Unsat Iron Binding Ferritin Total Bilirubin Direct Bilirubin AST ALT Alkaline Phosphatase Lactate Dehydrogenase Total Creatine Kinase Troponin I High Sens C-Reactive Protein Total Protein Albumin Procalcitonin TSH Urine Color Urine Appearance Urine pH Ur Specific [place] Urine Protein Urine Glucose (UA) Urine Ketones Urine Blood Urine Nitrite Ur Leukocyte Esterase Urine RBC Urine WBC Ur Squamous Epith Cells Urine Bacteria Hyaline Casts Influenza Type A (PCR) NEGATIVE Influenza Type B (PCR) NEGATIVE RSV RNA Qual (PCR) NEGATIVE SARS-CoV-2 RNA (RT-PCR) NEGATIVE 08/20/23 08/20/23 08/20/23 12:50 15:01 20:21 MCV MCH MCHC RDW Plt Count MPV Immature Gran % (Auto) Neut % (Auto) Lymph % (Auto) [place] % (Auto) Eos % (Auto) Baso % (Auto) Lymph # (Auto) [place] # (Auto) Eos # (Auto) Baso # (Auto) Abs Immat Gran (auto) Absolute Neuts (auto) Absolute Nucleated RBC Nucleated RBC % (auto) Smear Tech's Comments Absolute Retic Percent Retic Immature Retic Fraction Retic Hgb Equivalent Hold Blue Top VBG pH VBG pCO2 VBG pO2 VBG HCO3 VBG O2 Saturation VBG Base Excess Anion Gap Estim Creat Clear Calc Estimated GFR Random Glucose Lactic Acid Calcium Iron TIBC % Saturation Unsat Iron Binding Ferritin Total Bilirubin Direct Bilirubin AST ALT Alkaline Phosphatase Lactate Dehydrogenase Total Creatine Kinase Troponin I High Sens 38.9 H C-Reactive Protein Total Protein Albumin Procalcitonin TSH Urine Color Yellow Urine Appearance Cloudy Urine pH 7.0 Ur Specific [place] 1.010 Urine Protein 30 (1+) H Urine Glucose (UA) Negative Urine Ketones Negative Urine Blood Moderate (2+) H Urine Nitrite Negative Ur Leukocyte Esterase Large (3+) H Urine RBC 11-20 H Urine WBC >50 H Ur Squamous Epith Cells 0-2 Urine Bacteria 4+ Hyaline Casts 0-2 Influenza Type A (PCR) NEGATIVE Influenza Type B (PCR) NEGATIVE RSV RNA Qual (PCR) NEGATIVE SARS-CoV-2 RNA (RT-PCR) NEGATIVE 08/21/23 06:08 MCV 88.7 MCH 28.3 MCHC 31.9 RDW 14.5 Plt Count 370 MPV 9.0 L Immature Gran % (Auto) 0.7 H Neut % (Auto) 72.2 Lymph % (Auto) 18.8 L [place] % (Auto) 7.9 Eos % (Auto) 0.2 Baso % (Auto) 0.2 Lymph # (Auto) 1.8 [place] # (Auto) 0.8 Eos # (Auto) 0.0 Baso # (Auto) 0.0 Abs Immat Gran (auto) 0.07 H Absolute Neuts (auto) 6.9 Absolute Nucleated RBC 0.000 Nucleated RBC % (auto) 0.0 Smear Tech's Comments Absolute Retic 0.028 Percent Retic 1.1 Immature Retic Fraction 24.7 H Retic Hgb Equivalent 27.0 L Hold Blue Top VBG pH VBG pCO2 VBG pO2 VBG HCO3 VBG O2 Saturation VBG Base Excess Anion Gap 8 L Estim Creat Clear Calc 45.8 Estimated GFR > 60 Random Glucose 118 H Lactic Acid Calcium 8.4 Iron 31 TIBC 103 L % Saturation 30 Unsat Iron Binding 72 Ferritin 254 H Total Bilirubin Direct Bilirubin AST ALT Alkaline Phosphatase Lactate Dehydrogenase 205 Total Creatine Kinase Troponin I High Sens C-Reactive Protein 1.57 H Total Protein Albumin Procalcitonin 0.13 TSH Urine Color Urine Appearance Urine pH Ur Specific [place] Urine Protein Urine Glucose (UA) Urine Ketones Urine Blood Urine Nitrite Ur Leukocyte Esterase Urine RBC Urine WBC Ur Squamous Epith Cells Urine Bacteria Hyaline Casts Influenza Type A (PCR) Influenza Type B (PCR) RSV RNA Qual (PCR) SARS-CoV-2 RNA (RT-PCR) Assessment and Plan (1) Acute UTI: Status: Acute Plan d2 72yo F with malnutrition, stress induced cardiomyopathy with reduced EF, Raynaud's phenomenon, GERD, mood disorder recently admitted here 08/13-08/19/23 for severe C. difficile colitis then discharged home. Found down on ground by [employer], EMS called and reported hypoxia, though resolved by the time of arrival in ED. Arrived weak/frail, confused and hypothermic. Admitted for sepsis due to UTI, ?aspiration pneumonia. sepsis due to UTI, ?aspiration PNA - amp/sul 08/19- [due to hx Enterococcus], follow UCx + BCx, passed bedside swallow evaluation hypothermia - resolved acute encephalopathy due to infection - resolved troponin indeterminate - likely demand from sepsis; will check TTE, though severe C. difficile proctocolitis diagnosed previous admission - continue PO vancomycin 08/14-08/28 acute metabolic acidosis due to diarrhea - continue LR, recheck BMP in AM acute/chronic hypoproliferative normocytic anemia - T+S, recheck H+H in am, check B12/FA + FOBT; likely anemia of chronic disease HTN - metoprolol succinate HLD - statin mood disorder - lorazepam, temazepam, quetiapine VTE ppx - UFH dispo - will certainly require STR In my clinical judgment, the patient requires continued inpatient hospitalization for the following reasons: IV ABX, IV fluids Total time managing care of this patient today: 45 minutes. Quality Stroke Does the patient have a stroke diagnosis?: No VTE Prior VTE?: No VTE Risk Level:: Medical - moderate - high VTE Device Contraindication: Treatment Not Indicated VTE Drug Contraindication: N/A - Med Ordered
[2023-08-21 14:33] LABS: OBS Int Ctl Valid YES; OBS1 NEGATIVE (NEGATIVE)
--- NOTE | 2023-08-21 14:38 | MHC.CM.PN ---
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
[2023-08-21 15:26] VITALS: BP 125/61; PULSE 70; RESP 18; TEMP 36.9; O2SAT 94
[2023-08-21 19:37] VITALS: BP 117/73; PULSE 71; RESP 18; TEMP 36.8; O2SAT 97
[2023-08-21] MEDS: Atorvastatin Calcium 40 MG TABLET PO (21:20)
[2023-08-21] MEDS: QUEtiapine Fumarate 25 MG TABLET PO (21:20)
[2023-08-22] MEDS: Temazepam 15 MG CAPSULE PO (00:56)
[2023-08-22 03:20] VITALS: BP 117/59; PULSE 78; RESP 16; TEMP 36.6
[2023-08-22] MEDS: Ampicillin Sodium/Sulbactam Na 3 GM in 0.9 % Sodium Chloride 100 ML IV ×4 (03:52→21:07)
[2023-08-22] MEDS: Heparin Sodium,Porcine 5,000 UNIT/ML VIAL 5000 UNIT SUBCUT ×2 (03:52→16:02)
[2023-08-22] MEDS: Lactated Ringers 1,000 ML 100 ML IVCONT (04:30)
[2023-08-22] MEDS: Omeprazole 20 MG CAPSULE.DR PO (06:09)
[2023-08-22] MEDS: vancomycin HCL 125 MG CAPSULE PO ×3 (06:09→18:04)
[2023-08-22 06:10] LABS: Hematocrit 27.5 % (37.0-47.0); Hemoglobin 8.8 g/dl (12.0-16.0); Mean Corpuscular Hemoglobin 28.1 pg (27.0-33.0); Mean Corpuscular Volume 87.9 fL (80.0-98.0); Mean Platelet Volume 8.9 fL (9.4-12.3); Platelet Count 453 X10*3/uL (160-400); Red Blood Count 3.13 X10*6/uL (4.20-5.50); Red Cell Distribution Width 14.6 % (11.0-16.0); White Blood Count 8.6 X10*3/uL (4.8-10.8)
[2023-08-22 06:31] LABS: Anion Gap 10 (12-20); Blood Urea Nitrogen 10 mg/dL (9-16); Calcium 7.9 mg/dL (8.4-10.2); Carbon Dioxide 20 mmol/L (22-29); Chloride 115 mmol/L (96-108); Creatinine Clr Calc Pharmacy 55.2; Estimated Glomerular Filt Rate > 60; Glucose Random 86 mg/dL (60-115); Magnesium 1.6 mg/dL (1.6-2.6); Potassium 3.3 mmol/L (3.3-5.1); Sodium 142 mmol/L (135-145)
[2023-08-22 08:00] VITALS: BP 144/81; PULSE 79; RESP 18; TEMP 36.1; O2SAT 92
[2023-08-22] MEDS: Famotidine 20 MG TABLET PO ×2 (08:34→11:37)
[2023-08-22] MEDS: Metoprolol Succinate ER 25 MG TAB.ER.24H PO (08:34)
[2023-08-22] MEDS: LORazepam 0.5 MG TABLET PO ×2 (08:35→16:15)
--- NOTE | 2023-08-22 10:22 | HO.PM.IMPN ---
Subjective Subjective Date of Service: 08/22/23 Interval History: still having diarrhea no cough feels much better but still quite weak Review of Systems Review of Systems: Yes all other systems are reviewed and are negative Physical Exam Vital Signs: Vital Signs: Last Vital Signs Temp 96.9 F 08/22/23 08:00 Pulse 79 08/22/23 08:00 Resp 18 08/22/23 08:00 BP 144/81 H 08/22/23 08:00 Pulse Ox 92 08/22/23 08:00 O2 Del Method Room Air 08/22/23 08:00 O2 Flow Rate 5 08/20/23 12:19 Oxygen Flow Rate 15 08/20/23 10:01 BMI result Body Mass Index 17.2 Gen: in no acute distress, weak/frail HEENT: sclera anicteric, moist mucus membranes Neck: supple Lungs: clear to auscultation bilaterally Heart: regular rate and rhythm, no murmurs Abd: soft, non-tender, non-distended Ext: no edema Skin: warm/well-perfused Neuro: alert and oriented x3, no focal findings Psych: appropriate affect Objective Data Active Medications Acetaminophen (Acetaminophen 325 Mg Tablet) 650 mg PO Q6H PRN PRN Reason: Pain, Mild (Pain Scale 1-3) Atorvastatin Calcium (Atorvastatin Calcium 40 Mg Tablet) 40 mg PO BEDTIME [facility] Last Admin: 08/21/23 21:20 Dose: 40 mg Documented By: LORRAINE Famotidine (Famotidine 20 Mg Tablet) 20 mg PO BID@0900,1200 [facility] Last Admin: 08/22/23 08:34 Dose: 20 mg Documented By: OSCAR Heparin Sodium (Porcine) (Heparin Sodium,Porcine 5,000 Unit/Ml Vial) 5,000 unit SUBCUT Q12H [facility] Last Admin: 08/22/23 03:52 Dose: 5,000 unit Documented By: LORRAINE Ampicillin Sodium/Sulbactam (Sodium 3 gm/ Sodium Chloride) 100 mls @ 200 mls/hr IV Q6H [facility] Last Admin: 08/22/23 09:53 Dose: 200 mls/hr Documented By: OSCAR Lorazepam (Lorazepam 0.5 Mg Tablet) 0.5 mg PO Q6H PRN PRN Reason: anxiety Last Admin: 08/22/23 08:35 Dose: 0.5 mg Documented By: OSCAR Metoprolol Succinate (Metoprolol Succinate Er 25 Mg Tab.Er.24h) 25 mg PO DAILY [facility]; Protocol Last Admin: 08/22/23 08:34 Dose: 25 mg Documented By: OSCAR Omeprazole (Omeprazole 20 Mg Capsule.Dr) 20 mg PO DAILY@0630 [facility] Last Admin: 08/22/23 06:09 Dose: 20 mg Documented By: LORRAINE Ondansetron HCl (Ondansetron Hcl 4 Mg/2 Ml Vial) 4 mg IVPUSH Q8H PRN PRN Reason: Nausea and Vomiting Quetiapine Fumarate (Quetiapine Fumarate 25 Mg Tablet) 25 mg PO BEDTIME [facility] Last Admin: 08/21/23 21:20 Dose: 25 mg Documented By: LORRAINE Senna (Sennosides 8.6 Mg Tablet) 17.2 mg PO BEDTIME PRN PRN Reason: Constipation Sodium Chloride (0.9 % Sodium Chloride Flush 3 Ml Syringe) 3 ml IVFLUSH QSHIFT [facility] Last Admin: 08/22/23 07:18 Dose: Not Given Documented By: OSCAR Non-Admin Reason: IV Running Temazepam (Temazepam 15 Mg Capsule) 15 mg PO BEDTIME PRN PRN Reason: sleep Last Admin: 08/22/23 00:56 Dose: 15 mg Documented By: LORRAINE Vancomycin HCl (Vancomycin Hcl 125 Mg Capsule) 125 mg PO Q6H [facility] Stop: 08/30/23 12:01 Last Admin: 08/22/23 06:09 Dose: 125 mg Documented By: LORRAINE Labs 08/22/23 05:41 08/22/23 05:41 Labs: Laboratory Results - last 24 hr 08/21/23 08/22/23 13:51 05:41 MCV 87.9 MCH 28.1 MCHC 32.0 RDW 14.6 Plt Count 453 H MPV 8.9 L Absolute Nucleated RBC 0.000 Nucleated RBC % (auto) 0.0 Anion Gap 10 L Estim Creat Clear Calc 55.2 Estimated GFR > 60 Random Glucose 86 Calcium 7.9 L Magnesium 1.6 Stool Occult Blood NEGATIVE Blood Type B Positive Antibody Screen NEGATIVE Microbiology Microbiology Results: Microbiology 08/20/23 11:38 Blood Culture - Preliminary Blood - Venous No growth after 24 hours. 08/20/23 11:28 Blood Culture - Preliminary Blood - Venous No growth after 24 hours. 08/20/23 Unknown Urine Culture - Preliminary Urine Catheterized - Straight Catheter Culture in progress. Assessment and Plan (1) Acute UTI: Status: Acute Plan d3 72yo F with malnutrition, stress induced cardiomyopathy with reduced EF, Raynaud's phenomenon, GERD, mood disorder recently admitted here 08/13-08/19/23 for severe C. difficile colitis then discharged home. Found down on ground by [employer], EMS called and reported hypoxia, though resolved by the time of arrival in ED. Arrived weak/frail, confused and hypothermic. Admitted for sepsis due to UTI, ?aspiration pneumonia. sepsis due to UTI, ?aspiration PNA [more evident at bases of lungs on CT A/P than on CT chest] - amp/sul 08/19- [due to hx Enterococcus], follow UCx + BCx, passed bedside swallow evaluation hypothermia - resolved acute encephalopathy due to infection - resolved troponin indeterminate - likely demand from sepsis; will check TTE [tomorrow] severe C. difficile proctocolitis diagnosed previous admission - continue PO vancomycin 08/14-08/28 acute metabolic acidosis due to diarrhea - improved with IV LR replacement acute/chronic hypoproliferative normocytic anemia - above transfusion threshold, FOBT negative, check B12/FA; likely anemia of chronic disease HTN - metoprolol succinate HLD - statin mood disorder - lorazepam, temazepam, quetiapine VTE ppx - UFH dispo - will need STR; PT re-eval done In my clinical judgment, the patient requires continued inpatient hospitalization for the following reasons: IV ABX pending UCx, placement Total time managing care of this patient today: 35 minutes. Quality Stroke Does the patient have a stroke diagnosis?: No VTE Prior VTE?: No VTE Risk Level:: Medical - moderate - high VTE Device Contraindication: Treatment Not Indicated VTE Drug Contraindication: N/A - Med Ordered
[2023-08-22 15:34] VITALS: BP 113/82; PULSE 78; RESP 18; TEMP 36.6; O2SAT 98
[2023-08-22] MEDS: 0.9 % Sodium Chloride Flush 3 ML SYRINGE IVFLUSH (16:03)
[2023-08-22 19:09] VITALS: BP 119/67; PULSE 69; RESP 16; TEMP 36.9; O2SAT 96
[2023-08-22] MEDS: QUEtiapine Fumarate 25 MG TABLET PO (21:07)
[2023-08-22] MEDS: Atorvastatin Calcium 40 MG TABLET PO (21:07)
[2023-08-23] MEDS: 0.9 % Sodium Chloride Flush 3 ML SYRINGE IVFLUSH (00:46)
[2023-08-23] MEDS: vancomycin HCL 125 MG CAPSULE PO ×3 (00:47→10:50)
[2023-08-23] MEDS: LORazepam 0.5 MG TABLET PO ×2 (00:52→11:16)
[2023-08-23 01:52] VITALS: RESP 18
[2023-08-23 04:00] VITALS: BP 120/65; PULSE 74; RESP 16; TEMP 36.9; O2SAT 93
[2023-08-23] MEDS: Ampicillin Sodium/Sulbactam Na 3 GM in 0.9 % Sodium Chloride 100 ML IV (04:20)
[2023-08-23] MEDS: Heparin Sodium,Porcine 5,000 UNIT/ML VIAL 5000 UNIT SUBCUT ×2 (04:21→14:35)
[2023-08-23] MEDS: Omeprazole 20 MG CAPSULE.DR PO (06:18)
--- NOTE | 2023-08-23 07:00 | CA_ITS ---
Transthoracic Echocardiogram Patient (Last, First, Middle): Lisa Edward L Gender: Female Date of : 1950 Age: 72 Procedure Date: 08/23/2023 Procedure Type: Transthoracic Echocardiogram Location: S3E Height: 162.56 cm Weight: 45.36 kg BSA: 1.46 m2 Heart Rate: bpm BP: 120 / 65 mmHg Ada Accommodation Consultant: Referring MD: Jovi Gonzalez MD Symptoms: Tn-I elevation Study Quality: Fair ECG Rhythm: Sinus Conclusions: - The left ventricular systolic function is normal. The visually estimated ejection fraction is between 55-60%. - The basal inferior, mid anterolateral, and mid inferolateral segments are hypokinetic. - No obvious valvular pathology seen on this study. Findings Left Ventricle Normal left ventricular cavity size. There is normal left ventricular wall thickness. The left ventricular systolic function is normal. The visually estimated ejection fraction is between 55-60%. Evidence suggests grade I (mild) diastolic dysfunction. Wall Motion Rest Echo Findings The basal inferior, mid anterolateral, and mid inferolateral segments are hypokinetic. Right Ventricle Normal right ventricular cavity size and systolic function. Atria Both atria are normal in size. Aortic Valve The aortic valve was not well visualized. There is no aortic valve stenosis. There is no aortic valve regurgitation. Mitral Valve The mitral valve appears normal. There is trace mitral valve regurgitation. There is no mitral valve stenosis. Pulmonic Valve The pulmonic valve is likely normal. Tricuspid Valve There is mild tricuspid valve regurgitation. Mild pulmonary hypertension is present. Great Vessels The asc aorta is normal in size. Venous The inferior vena cava is normal in size and collapses greater than 50% with inspiration. Pericardium/Pleural There is no evidence of pericardial effusion. Prior Study Comparison No significant change compared to prior study dated: 12/18/2020. (images reviewed, wall motion similar) Recommendations, Care & Conclusions No obvious valvular pathology seen on this study. Measurements 2D Linear Measurements IVSd: 0.73 0.6-0.9/0.6-1.0 cm LVIDd: 3.52 3.9-5.3/4.2-5.9 cm LVIDd Index: 2.41 2.4-3.2/2.2-3.1 cm/m2 LVIDs: 2.22 2.0-3.6 cm LVPWd: 0.76 0.7-1.1 cm Ao Root: 2.50 2.1-3.5 cm LA Diam: 3.30 2.7-3.8/3.0-4.0 cm LAIDs Index: 2.26 1.5-2.3 cm/m2 LV Mass: 85.42 67-162/88-224 g LV Mass Index: 58.51 43-95/49-115 g/m2 LVOT Diam: 2.00 3.0+(-)1.3 cm Mitral Valve MV VTI: 0.30 MV Pk Abiodun: 1.00 MV Mn Abiodun: 0.47 MV Pk Grad: 4.00 MV Mn Grad: 1.00 MV Pk E: 0.50 MV PK A: 0.87 MV Decel Time: 204.00 E/A: 0.60 E'Lateral: 11.90 E'Medial: 8.38 E/E' Med: 6.00 E/E' Lat: 4.20 PHT: 60.00 MVA PHT: 3.67 MVA Continuity: 2.07 Decel [place]: 2.46 Aortic Valve AoV Pk Abiodun: 1.36 AoV Mn Abiodun: 0.83 AoV VTI: 0.25 AoV Pk Grad: 7.00 Aov Mn Grad: 3.00 SHANTI Cont.VTI: 2.50 LVOT LVOT Pk Abiodun: 0.75 LVOT Mn Abiodun: 0.48 LVOT VTI: 0.20 LVOT Pk Grad: 2.00 LVOT Mn Grad: 1.00 LVOT Diam: 2.00 LVOT Area: 3.14 Diastolic Function MV Pk E: 0.50 MV Pk A: 0.87 E/A: 0.60 E'Medial: 8.38 E/E' Med: 6.00 E' Laterial: 11.90 E/E' Lat: 4.20 Right Ventricle TAPSE (mm): 21.00 TVS' Abiodun: 18.00 Tricuspid Valve TR Pk Abiodun: 2.98 TR Pk Grad: 36.00 RA Press: 3.00 RVSP: 39.00 Great Vessels Aorta Ao Root-2D: 2.50 2.0-3.7 cm Pulmonary Valve PV Pk Abiodun: 0.86 Peak PV Grad: 3.00 Updated in Other Vendor System with Status of Final Kirill Aguilar MD electronically signed on 08/23/2023 1:04:27 PM with status of Final
[2023-08-23 07:26] LABS: Hematocrit 30.2 % (37.0-47.0); Hemoglobin 9.9 g/dl (12.0-16.0); Mean Corpuscular HGB Conc 32.8 g/dl (31.0-35.0); Mean Corpuscular Hemoglobin 28.9 pg (27.0-33.0); Mean Corpuscular Volume 88.3 fL (80.0-98.0); Platelet Count 486 X10*3/uL (160-400); Red Blood Count 3.42 X10*6/uL (4.20-5.50); Red Cell Distribution Width 14.6 % (11.0-16.0)
[2023-08-23 07:40] LABS: Anion Gap 11 (12-20); Blood Urea Nitrogen 10 mg/dL (9-16); Carbon Dioxide 20 mmol/L (22-29); Chloride 113 mmol/L (96-108); Creatinine Clr Calc Pharmacy 63.1; Estimated Glomerular Filt Rate > 60; Glucose Random 77 mg/dL (60-115); Potassium 3.1 mmol/L (3.3-5.1); Sodium 141 mmol/L (135-145)
[2023-08-23 07:48] VITALS: BP 127/69; PULSE 77; RESP 18; TEMP 36.3; O2SAT 94
[2023-08-23] MEDS: Metoprolol Succinate ER 25 MG TAB.ER.24H PO (08:11)
[2023-08-23] MEDS: levoFLOXacin 750 MG TABLET PO (08:11)
[2023-08-23] MEDS: Famotidine 20 MG TABLET PO ×2 (08:11→10:50)
[2023-08-23 08:16] LABS: Folate 3.5 ng/mL (> or = 4.0); Vitamin B12 878 pg/mL (200-900)
--- NOTE | 2023-08-23 10:13 | MHC.CM.PN ---
EMR REVIEWED. PER MD ROUNDS PATIENT IS MEDICALLY CLEARED FOR DC TO STR AT [facility], PENDING TOOL ENGINEER EVAL FOR DIET RECOMMENDATION. BLS TRANSPORTATION SCHEDULED FOR 3PM. HOSPITALIST, RN AND PATIENT AWARE.
--- NOTE | 2023-08-23 11:27 | HO.WOUND ---
Wound Consult: Initial 72yr old F? [place] [facility] [place] See progress notes and H&P for detailed history.? Wound consult placed for Left Thigh Wound POA.? Patient agreeable to assessment and photo documentation.? Patient does not recall how injury occurred. The partial thickness tissue loss is directly over the bony trochanter site - detailed below. The buttock and perineal areas were assessed for MASD -IAD (Moisture Associated Skin Damage - Incontinence Associated Dermatitis) red pink intact blanchable tissue - barrier cream in place. The left knee is notes for a small 1cm x 1cm stable scab - no topical interventions needed for the left knee at this time Left Lateral Trochanter / hip site Etiology: Stage 2 pressure injury ??Present on Admission Measurements:see charting for detailed measurements Wound Bed: partial thickness tissue loss - clean pink mist wound bed Drainage / Odor: small serosang Edges: ? well defined Nancy wound: intact - ? No Induration, Fluctuance or Warmth noted Pain: reports discomfort Goals of Treatment: ? moist wound healing Recommendations: 1. Turn and Reposition every 2 hours and as needed for patient comfort.? Use pillows or wedges to support off loading positions. 2. Off Load all bony prominences with use of pillows and heel boots if needed.? Apply Preventative foams where needed. ?Apply preventative foam to sacral area. 3. Monitor for incontinence and moisture control, use barrier creams when needed for prevention and treatment. 4. Provide adequate and supplemental nutrition.? 5. Order or Continue low air loss mattress. 6. Left Trochanter - Inspector Quality Assurance with NS moist gauze, pat dry. Cover wound bed with xeroform cover with foam dressing. Change daily. 7. Buttock and perineal - Routine cleansing with PH balanced wash, pat dry. Apply barrier cream twice daily and PRN after episodes of incontinence. Re-consult wound care Nurse for wound deterioration or wound changes
[2023-08-23 11:28] VITALS: BMI 17.2
[2023-08-23] MEDS: Potassium Chloride Packet 20 MEQ PACKET 40 MEQ PO (11:30)
--- NOTE | 2023-08-23 14:12 | MHC.SL.SWA ---
Speech Pathologist Impression: Mild oral phase dysphagia Dysphasia Diet Status: No change Liquid Consistency and Strategies for Safe Swallow: Liquid Intake Recommendation: Thin Liquid Intake Strategies: Small Sips Solid Food Consistency: Dietary Recommendations: Chopped/Advanced (NDD3) Additional Modifications to Solid Foods: Recommend CONTINUE on CHOPPED/ADVANCED diet (NDD3) with THIN liquids, pills WHOLE in PUREE. Patient is able to feed herself. Recommend continue aspiration precautions and direct supervision during meals. Oral Medication Intake: Whole with Puree Please contact the pharmacy regarding appropriate crushable or liquid drug formulations that are available whenever modified delivery is recommended. Compensatory Strategies and Precautions to be Taken for Safe Swallow: Sitting Upright (90 deg) Double Swallow Small Bites and Sips Alternate Liquids/Solids Rate of Ingestion Change Avoid Specific Foods Supervision While Eating and Drinking for Safe Swallow: Total Supervision (1:1) Foods to Avoid: Hard, dry, or crunchy foods Recommendation for Speech: Speech Therapy through Rehab Facility Comment: Pt to be d/c to STR at [facility]. Assisted Living Director Clinican/Clinical Fellow: No Supervisory Statement: I have reviewed and agree with the student/clinical fellow's documentation: N/A Speech Language Pathologist: Giovanna Ricks M.A., CCC-GAS TRUCK DRIVER
--- NOTE | 2023-08-23 14:18 | P.DS_ITS ---
DS: Providers Provider Date of Service: 08/23/23 Date of admission: 08/20/23 14:19 Date of discharge: 08/23/23 Primary care physician: Aniyah Mcgregor MD Admitting clinician: Angy Aguiar Attending physician on admission: Jovi Gonzalez Consults: 08/20/23 22:58 Consult to Wound Care Routine Reason for consultation: skin tear left upper outer thigh Has provider been notified: No Attending physician on discharge: Billy Zafar Discharging clinician: Angy Aguiar DS: Diagnosis Discharge Diagnosis (1) Acute UTI: Status: Acute (2) Metabolic encephalopathy: Status: Acute (3) Moderate protein-calorie malnutrition: Status: Acute (4) Hypokalemia: Status: Acute (5) Urinary retention: Status: Acute DS: Summary Hospital Course Hospital Course: HPI on admission by this provider 08/19: 72yo F with malnutrition, stress induced cardiomyopathy with reduced EF, Raynaud's phenomenon, GERD, mood disorder presented to the ED after being found on the ground by aid and contacted EMS. On arrival, pt unable to provide history, just mumbling. On admission, pt very weak, frail, mumbling speech but provides some history. She was discahrged yesterday after being admitted 08/13- 08/18 for cdiff proctocolitis. Had been recommended for STR but declined and VNA but declined. Per aid, since discharge has been very weak with malaise. Pt reports she is still incontinence of diarrhea but denies any other complaints. No pain. Feels weak and requesting to eat and drink. Unclear how long patient was on the ground for. On arrival, pt hypothermic at 93.8, placed on aline hugger with improvement in temp to 97.0 on admission. Blood pressures have been soft which appears consistent with baseline, no hypotension. Per EMS, pt hypoxic in the 70s on arrival and placed on non rebreather. No hypoxia on admission, 92% on RA. Milk leukocytosis 11.6. Stable normocytic anemia 9.5/29.9%. Renal function baseline, electrolyte levels normal except for chloride 117, CO2 17. Total CK 311. Initial troponin 49.3, repeat pending. Albumin 2.2. TSH 0.62. UA significant for 3+ leukocytes, 2+ blood, negative nitrites, positive urinary sediment, 4+ bacteria. Negative for influenza, COVID-19, RSV. Head CT negative for any acute intracranial abnormality. Cervical spine CT negative for any acute osseous abnormality. Chest CT/abd pelvis shows mild pulmonary emphysema levels increased size pleural effusion and new small right pleural effusion associated with atelectasis and no overt pneumonia. No pulmonary edema. Dilated esophagus. In the ED, got 2L IV NS, IV cefepime, 10mg dexamethasone. Hospital course: Pt admitted to [facility] for further management of UTI with sepsis and acute metabolic encephalopathy. She was weaned from Aline Hugger with temperature of 97 degrees on admission. Lou catheter was placed in ED due to urinary retention and remained in place throughout admission. There had initially been concerns over possible aspiration pneumonia given oximetry 70s per EMS, though no recurrent hypoxia noted during hospital stay. CT abdomen/pelvis showed possible bilateral basilar opacities concerning for aspiration though chest CT was negative for any evidence of pneumonia. She was continued on Unasyn for treatment UTI given history of Enterococcus UTI sensitive to ampicillin and question of aspiration. Mentation improved to baseline and patient is oriented x4 on discharge though very anxious. Sepsis resolved with normalization of vital signs. No further hypothermia. Leukocytosis resolved. On day of discharge, she was transitioned to p.o. Levaquin as urine cultures grew raoultella ornithinolytica and Enterobacter cloacae complex, both sensitive to levaquin. She will complete additional 6 days levaquin on discharge. Continued on PO vancomycin while hospitalized for C diff infection (diagnosed 08/14), last dose due 08/28 (26 additional doses due). Troponins were elevated to 49 and on repeat 38 likely due to demand from sepsis. Echocardiogram was ordered showing normal LV systolic function with EF 55-60% with hypokinesis noted in the basal inferior, mid anterolateral, mid inferolateral segments similar to prior exam. No acute intervention required. She was treated with lactated Ringer's due to a mild hyperchloremic metabolic acidosis secondary to diarrhea with good improvement. She was weaned from IV fluids and tolerating regular diet. She had a mild hypokalemia of 3.1 on day of discharge which was repleted with 40 mEq potassium chloride. FAMILY COACH did evaluate patient given concern for possible aspiration/dysphagia with mildly slowed oral phase but no s/s aspiration and good oral clearance. Recommending chopped diet/thin liquids. Evaluated by PT recommending STR. Pt will be transferred to [facility] for short-term rehab. Anticipated need for STR less than 30 days. Recommend repeating BMP to evaluate electrolyte levels in 3-5 days. # sepsis due to UTI -continue Levaquin 750 mg daily x6 days, next dose due 08:00 -no recurrent hypothermia, weaned from Aline Hugger -outpatient follow-up with Dr. Banegas due to recurrent UTI # acute metabolic encephalopathy -secondary to UTI, resolved # urinary retention -Lou catheter placed, will be discharged on Lou catheter -trial to void per facility recommendations -outpatient follow-up with Urology (Dr. Banegas) # severe C diff proctocolitis-diagnosed prior admission 08/14 -continue p.o. vancomycin 08/14-08/28 (additional 26 doses due, next dose due 18:00) -recommend yogurt for probiotics # elevated troponins -likely demand due to sepsis -echocardiogram revealed hypokinesis and basal inferior, mid anterolateral, mid inferolateral segments similar to prior exam. No acute intervention indicated # acute hyperchloremic metabolic acidosis due to C diff diarrhea -improved with IV LR replacement -tolerating diet, encourage p.o. fluids # acute/chronic hypoproliferative normocytic anemia -no transfusion required -folic acid level low, replete with 1 mg folic acid daily # hypertension -continue metoprolol # HLD -continue statin # mood disorder -continue lorazepam, temazepam, quetiapine # moderate protein calorie malnutrition -recommend supplements Status at Discharge Functional status at discharge: uses cane/walker Overall status at discharge: patient is progressing back to baseline Time Attestation Discharge Coordination Time (in mins): 38 minutes Quality: Safe Use of Opioids Does Pt have an Active Cancer Diagnosis on the Problem List?: No Quality: Stroke Does the patient have a stroke diagnosis?: No Physical Exam Vital Signs: Vital Signs: Last Vital Signs Temp 97.3 F 08/23/23 07:48 Pulse 77 08/23/23 07:48 Resp 18 08/23/23 07:48 BP 127/69 08/23/23 07:48 Pulse Ox 94 08/23/23 07:48 O2 Del Method Room Air 08/23/23 07:48 O2 Flow Rate 5 08/20/23 12:19 Oxygen Flow Rate 15 08/20/23 10:01 BMI result Body Mass Index 17.2 Constitutional - Awake and Alert, No apparent distress Eyes - PERRLA, EOMI Cardiovascular - S1S2, RRR, No edema Respiratory - Normal lung expansion, Normal respiratory effort, No respiratory distress, CTA bilaterally Gastrointestinal - NT / ND; +BS; No rebound or guarding - No CVA tenderness Extremities - no calf tenderness bilaterally, no swelling Musculoskeletal - Normal inspection, normal ROM Skin - Warm/Dry Neurological - Alert & oriented x3, CN II-XII in tact, 5/5 strength BUE and BLE Psychological - Appropriate affect DS: Data Data Completed and Pending Labs on day of discharge: Laboratory Results - last 24 hr 08/23/23 06:04 WBC 10.0 RBC 3.42 L Hgb 9.9 L Hct 30.2 L MCV 88.3 MCH 28.9 MCHC 32.8 RDW 14.6 Plt Count 486 H MPV 9.0 L Absolute Nucleated RBC 0.000 Nucleated RBC % (auto) 0.0 Sodium 141 Potassium 3.1 L Chloride 113 H Carbon Dioxide 20 L Anion Gap 11 L BUN 10 Creatinine 0.56 Estim Creat Clear Calc 63.1 Estimated GFR > 60 Random Glucose 77 Calcium 8.0 L Vitamin B12 878 Folate 3.5 L Preliminary micro results at discharge 08/20/23 11:38 Blood Culture - Preliminary Blood - Venous No growth after 48 hours. 08/20/23 11:28 Blood Culture - Preliminary Blood - Venous No growth after 48 hours. Discharge Plan Discharge Anticipated Discharge Date/Time: 08/23/23 09:52 Patient Disposition: Xfer SNF Discharge Diagnosis: UTI, sepsis Referrals: [facility] [Outside] - 1 Day (short term rehab) Aniyah Smith MD [Primary Care Provider] - 1 Week Discharge Medications: New folic acid 1 mg Tablet 1 mg PO DAILY Qty: 90 0RF levofloxacin 750 mg Tablet 750 mg PO Q24H Qty: 6 0RF Continued (DME) foot inserts See Rx Instructions .Route .MEDSUPPLY Qty: 1 0RF Rx Instructions: As directed (DME) leno.stocking,knee,reg,smal Misc See Rx Instructions .Route Qty: 12 0RF Rx Instructions: As directed metoprolol succinate 25 mg tablet extended release 24 hr 25 mg PO DAILY Qty: 30 5RF atorvastatin 40 mg tablet 40 mg PO BEDTIME 90 Days Qty: 90 1RF pantoprazole 40 mg tablet,delayed release (DR/EC) 40 mg PO DAILY@0630 quetiapine 50 mg tablet 25 mg PO BEDTIME vancomycin 125 mg Capsule 125 mg PO Q6H Qty: 26 0RF famotidine 20 mg tablet 20 mg PO BID@0900,1200 lorazepam 1 mg tablet 1 mg PO BID PRN (Reason: anxiety) 30 Days Qty: 60 5RF temazepam 15 mg capsule 15 mg PO BEDTIME PRN (Reason: sleep) 30 Days Qty: 30 5RF Discharge Orders: Discharge Order (Routine); Ordered 08/23/23 Ordered By: Angy Aguiar Diet: See Plan of Tx Activity on Discharge: As tolerated Stand Alone Forms: Patient Portal Discharge page Other Ambulatory Orders: Basic Metabolic Panel (Routine) Timeframe: 3 Days Facility: [facility] - Location: Laboratory Ordered By: Angy Aguiar Care Plan Goals: Complete course of treatment for UTI Complete course of treatment for CDiff Health Concerns: UTI with sepsis Acute metabolic encephalopathy ? Aspiration/dysphagia CDiff Folic acid deficiency Plan of Treatment: UTI with sepsis -treated with IV Unasyn. Urine culture positive for RAOULTELLA ORNITHINOLYTICA and ENTEROBACTER CLOACAE COMPLEX, both sensitive to levaquin -Given 1 dose PO levaquin in hospital. Complete additional 6 doses levaquin 750mg daily (next dose due 8am 08/23) -Blood cultures negative -Outpt follow up with urology given frequent UTI's with various pathogens -Luo catheter inserted in hospital and will remain on discharge due to urinary retention. Trial to void as appropriate. Outpt follow up with urology. #Acute metabolic encephalopathy -due to UTI, resolved #?Aspiration/dysphagia -possible bilateral basilar opacities on ct abd/pelvis, not present on Chest CT. Asymptomatic, no hypoxia while admitted -Seen by FAMILY COACH recommending regular chopped diet (NDD3), thin liquids #CDiff -continue additional 26 doses PO vanco (end date 08/28). Next dose due (6pm) #Folic acid deficiency -1mg folic acid every morning Assessment: See above. See discharge summary
[2023-08-23] MEDS: Folic Acid 1 MG TABLET PO (14:35)
== END 2023-08-23 16:12 | disposition skilled nursing facility (03) | DRG 871 ==
LOC: HO.ED 13:48 → HO.EDOVER 14:20 → HO.S3 20:36
PROVIDERS: Family Medicine; Admitting Provider Physician Assistant; Emergency Provider Emergency Medicine Emergency Medical Services; PCP Internal Medicine; Visit Provider Physician Assistant
DX: A41.9 Sepsis, unspecified organism (principal); G93.41 Metabolic encephalopathy; J98.11 Atelectasis; N39.0 Urinary tract infection, site not specified; A04.72 Enterocolitis due to Clostridium difficile, not specified as recurrent; E44.0 Moderate protein-calorie malnutrition; Z68.1 Body mass index [BMI] 19.9 or less, adult; E87.21 Acute metabolic acidosis; I51.81 Takotsubo syndrome; E87.6 Hypokalemia; I10 Essential (primary) hypertension; D63.8 Anemia in other chronic diseases classified elsewhere; Z66 Do not resuscitate; F39 Unspecified mood [affective] disorder; E78.5 Hyperlipidemia, unspecified; E86.0 Dehydration; I73.00 Raynaud's syndrome without gangrene; R68.0 Hypothermia, not associated with low environmental temperature; Z20.822 Contact with and (suspected) exposure to COVID-19; Z87.891 Personal history of nicotine dependence; Z79.899 Other long term (current) drug therapy
CPT/HCPCS: 0241U; 36415; 70450; 71250; 72125; 74176; 80048; 80076; 81001; 82272; 82550; 82607; 82728; 82746; 82803; 82947; 83540; 83605; 83615; 83735; 84145; 84443; 84484; 85025; 85027; 85045; 86140; 86850; 86900; 86901; 87040; 87086; 87088; 87186; 92610; 93005; 93306; 97162; 99285; C1758; J0295; J0692; J1100; J1644; J7120; P9047

== ENCOUNTER → 2023-08-20 10:12 | Outpatient (BNV) | payer MEDICARE, SELFPAY | PROVIDERS: Emergency Provider Emergency Medicine Emergency Medical Services; PCP Internal Medicine; Visit Provider Internal Medicine Cardiovascular Disease | DX: R94.31 Abnormal electrocardiogram [ECG] [EKG] (principal) | CPT/HCPCS: 93010 ==

== ENCOUNTER 2023-08-20 14:19 | Outpatient (BNV) | payer MEDICARE, SELFPAY | END 2023-08-23 07:00 | PROVIDERS: Admitting Provider Physician Assistant; Emergency Provider Emergency Medicine Emergency Medical Services; PCP Internal Medicine; Visit Provider Internal Medicine | DX: I36.1 Nonrheumatic tricuspid (valve) insufficiency (principal) | CPT/HCPCS: 93306 ==

== ENCOUNTER → 2023-08-20 14:19 | Outpatient (BNV) | payer MEDICARE, SELFPAY | PROVIDERS: Admitting Provider Physician Assistant; Emergency Provider Emergency Medicine Emergency Medical Services; PCP Internal Medicine; Visit Provider Physician Assistant | DX: A41.9 Sepsis, unspecified organism (principal); N39.0 Urinary tract infection, site not specified; G93.41 Metabolic encephalopathy; E44.0 Moderate protein-calorie malnutrition; E87.6 Hypokalemia; R33.9 Retention of urine, unspecified | CPT/HCPCS: 99223; 99232; 99239 ==

== ENCOUNTER 2023-09-11 05:11 | Inpatient (IN) | payer MEDICARE, SELFPAY ==
[2023-09-11] VITALS (10 sets, daily range): BP systolic 83–142; BP diastolic 45–64; PULSE 18–93; RESP 14–20; TEMP 36.4–37.8; O2SAT 97–100; BMI 15.2
--- NOTE | ~2023-09-11 | XR_ITS ---
EXAMINATION: XR CHEST CLINICAL INFORMATION: Septic COMPARISON: CT scan of the chest August 2023. Chest x-ray September 2020 TECHNIQUE: Frontal view of the chest was obtained. FINDINGS: Prominent scoliosis of the thoracolumbar spine unchanged. Tiny upper lobe nodular densities compatible with granuloma unchanged compared to prior examinations Linear opacity at the left base compatible with scarring and/or atelectasis of. Lungs otherwise clear. XR/XR chest 1V IMPRESSION: 1. No acute disease. Linear opacity left base likely scarring and/or atelectasis unchanged compared to recent CT 2. Scoliosis. 3. Old granulomatous disease.
--- NOTE | 2023-09-11 05:51 | ECG_ITS ---
Test Reason : WEAKNESS Blood Pressure : / mmHG Vent. Rate : 080 BPM Atrial Rate : 080 BPM P-R Int : 118 ms QRS Dur : 084 ms QT Int : 408 ms P-R-T Axes : 073 027 076 degrees QTc Int : 470 ms Normal sinus rhythm ST depression in Anterolateral leads could represent ischemia Abnormal ECG When compared with ECG of 20-AUG-2023 10:10, ST depression in anterolateral leads Referred By: Christiane Holloway Electronically Signed By:RAISSA SMITH MD
[2023-09-11] MEDS: 0.9 % Sodium Chloride 1,000 ML 999 ML IVCONT (06:05)
[2023-09-11] MEDS: cefTRIAXone sodium 1 GM in 0.9 % Sodium Chloride 50 ML IV (06:22)
[2023-09-11 06:23] LABS: Hematocrit 33.6 % (37.0-47.0); Hemoglobin 10.6 g/dl (12.0-16.0); Mean Corpuscular HGB Conc 31.5 g/dl (31.0-35.0); Mean Corpuscular Hemoglobin 28.1 pg (27.0-33.0); Mean Corpuscular Volume 89.1 fL (80.0-98.0); Mean Platelet Volume 9.6 fL (9.4-12.3); Platelet Count 373 X10*3/uL (160-400); Red Blood Count 3.77 X10*6/uL (4.20-5.50); Red Cell Distribution Width 16.4 % (11.0-16.0); White Blood Count 12.9 X10*3/uL (4.8-10.8)
[2023-09-11 06:28] LABS: Prothrombin Time 12.5 SEC (11.1-13.3)
[2023-09-11 06:39] LABS: Lactic Acid 2.4 mmol/L (0.5-2.0)
[2023-09-11 06:41] LABS: Neutrophils Percent Manual 67 % (45-73)
[2023-09-11 06:42] LABS: Band Neutrophils Percent 21 % (3-5); Lymphocytes Absolute Manual 0.4 X10*3/uL (1.2-4.9); Lymphocytes Percent Manual 3 % (20-40); Monocytes Absolute Manual 1.2 X10*3/uL (0.1-1.2); Monocytes Percent Manual 9 % (2-11); Neutrophils Absolute Manual 11.4 X10*3/uL (2.0-8.3)
[2023-09-11 06:43] LABS: Acanthocytes 2+ (3-5) /OIF; Large Platelet PRESENT; Platelet Estimate NORMAL (NORMAL); Platelet Morphology Comment NOTED; RBC Morphology NOTED; Toxic Granulation PRESENT; Toxic Vacuolation PRESENT
[2023-09-11 07:07] LABS: Influenza A PCR NEGATIVE (Negative); Influenza B PCR NEGATIVE (Negative); Resp Syncy Virus RNA Qual PCR NEGATIVE (Negative); SARS COV2 PCR INHOUSE NEGATIVE (Negative)
--- NOTE | 2023-09-11 07:09 | PC.NURSE ---
Resumed care of patient, this RN touched base with provider, Chemistry okay to be held for recollect until next Lactic due at 0750. Pt is a/ox4, fluids currently running per order. Call [facility] within reach, all safety measures met
[2023-09-11] MEDS: 0.9 % Sodium Chloride 1,500 ML 999 ML IVCONT (07:13)
[2023-09-11] MEDS: Albumin Human 25 % 100 ML IV ×2 (07:25→08:42)
--- NOTE | 2023-09-11 07:32 | ED.GENADULT ---
HPI - General Adult General Chief complaint: General Medical Stated complaint: weakness Time Seen by Provider: 09/11/23 05:40 Source: patient and EMS Mode of arrival: EMS Limitations: no limitations History of Present Illness HPI narrative: Patient comes to the emergency room by ambulance from home. According to EMS, patient called twice for help today. The 1st time, patient called, stating that she could not take care of herself, patient asked EMS to cook a meal for her. Patient refused to go to the emergency room. Then minutes later, patient called again, states that she could not get off the couch, patient was incontinent of both feces and urine. EMS returned to the patient's residence, picked her up and brought her to the emergency room. -of note, but a month ago, patient was treated for UTI sepsis. Then patient was sent to a rehab facility. Seems that patient did well for her physical therapy evaluation and patient was discharged home about 2 days ago. However, over the last 2 days, patient started declining. Also, patient states that since she was here, she was diagnosed with C diff. patient has had diarrhea for over a month. Related Data Home Medications ?Medication ?Instructions ?Recorded ?Confirmed quetiapine 50 mg tablet 25 mg PO BEDTIME 07/16/23 08/20/23 famotidine 20 mg tablet 20 mg PO BID@0900,1200 08/14/23 08/20/23 Previous Rx's ?Medication ?Instructions ?Recorded foot inserts #1 ea 12/04/21 leno.stocking,knee,reg,smal #12 ea 10/14/22 atorvastatin 40 mg tablet 40 mg PO BEDTIME 90 days #90 tabs 03/09/23 lorazepam 1 mg tablet 1 mg PO BID PRN anxiety 30 days 03/09/23 #60 tabs metoprolol succinate 25 mg 25 mg PO DAILY #30 tabs 03/09/23 tablet,extended release 24 hr temazepam 15 mg capsule 15 mg PO BEDTIME PRN sleep 30 days 03/09/23 #30 caps folic acid 1 mg tablet 1 mg PO DAILY #90 tabs 08/23/23 levofloxacin 750 mg tablet 750 mg PO Q24H #6 tabs 08/23/23 vancomycin 125 mg capsule 125 mg PO Q6H #26 caps 08/23/23 pantoprazole 40 mg tablet,delayed 40 mg PO DAILY@0630 90 days #90 09/05/23 release tabs Allergies Allergy/AdvReac Type Severity Reaction Status Date / Time No Known Allergies Allergy Verified 09/11/23 05:40 Review of Systems Review of Systems: Constitutional : No Weight loss, No Fever, No Chills, No Night Sweats, complaining of fatigue, weakness, generalized malaise ENT/Mouth : No Hearing loss, No Ear Pain, No Nasal Congestion, No Sinus Pain, No Hoarseness, No sore throat, No Rhinorrhea, No Swallowing Difficulty Eyes: No Eye Pain, No Swelling, No Redness, No Foreign Body, No Discharge, No Vision Changes Cardiovascular : No Chest Pain, No SOB, No Dyspnea on Exertion, No Orthopnea, No Edema, No Palpitations Respiratory : No Cough, No Sputum, No Wheezing, No Smoke Exposure, No Dyspnea Gastrointestinal : No Nausea, No Vomiting, No Diarrhea, No Constipation, No abdominal Pain, No Hematochezia, No Melena Genitourinary : no irregular bleeding, No Dysuria, No Urinary Frequency, No Hematuria, No Urinary Incontinence, No Urgency, No Flank Pain, No Urinary Flow Changes, No Hesitancy Musculoskeletal : No joint pain, No Myalgias, No Joint Swelling Skin : No Skin Lesions, No rash Neuro : No Weakness, No Numbness, No Paresthesias, No Loss of Consciousness, No Dizziness, No Headache Psych : No Anxiety/Panic, No Depression, No SI/HI/AH/VH, No Social Issues, Heme/Lymph: No Bruising, No Bleeding,No Lymphadenopathy Endocrine : No Polyuria, No Polydipsia, No Temperature Intolerance PMFSH Past Medical History Medical History External hemorrhoids Epidermal inclusion cyst White coat syndrome with high blood pressure but without hypertension Dry eyes Hyponatremia Hypercalcemia Diarrhea Renal calculi Constipation by delayed colonic transit GERD (gastroesophageal reflux disease) UTI (urinary tract infection) Villous adenoma of colon Insomnia Raynauds disease Anxiety Surgical History History of bronchoscopy History of tonsillectomy Family History Family History Father Medical history unknown Mother Dementia Alzheimers disease Mental health disorder Brother Leukemia Sister Medical history unknown Social History Social History Household Members: None Household Members Other:: retirement Housing: Apartment Housing Other:: retirement Do you presently have visiting nurse or other home services: Yes ([employer]) Alcohol intake: former Patient Tobacco Use Status: Former Tobacco user Tobacco use type: Cigarette e-Cigarette/Vaping Use: Never Used Second Hand Smoke Exposure: No Advance Directives: Yes Advance Directives on File: Yes Advance Directives Date on File: 11/23/22 service: No Current occupational status: retired Cognitive needs: No Hearing needs: No Vision needs: Yes Physical Exam ED Vital Signs: Vital Signs - 24 hr 09/11/23 05:33 09/11/23 07:28 Temperature 97.5 F Pulse Rate 82 80 Respiratory Rate 16 16 Blood Pressure 83/45 L 96/48 L Pulse Oximetry 97 98 Oxygen Delivery Method Room Air Room Air BMI result Body Mass Index 15.2 Const Other: Appearance: Alert. Oriented X3. No acute distress. Patient is very cachectic, pale Eyes: Pupils equal, round and reactive to light. ENT: Pharynx normal. Neck: Normal inspection. Neck supple. No lymph nodes noted. No crepitus CVS: Normal heart rate and rhythm. Pulses normal. Normal S1 and S2 Respiratory: No respiratory distress. Breath sounds normal. No Wheezing. No rales Abdomen: Soft and nontender. No rigidity. No distention. Skin: Skin warm and dry. Diffusely pill skin color. Normal skin turgor. Extremities: No lower extremity edema. No Lacerations. No Rash Neuro: Oriented X 3. No motor deficit. No sensory deficit. Moving all extremities. No slurred speech. CN 2 through 12 grossly intact Psych: calm, cooperative, normal affect Course Course Course Narrative: -patient's blood pressure on arrival is in the 70 systolic. -patient has history of UTI sepsis from her last admission. Empirically, patient is being treated with IV fluids and ceftriaxone. Last month, pt grew in the urine Raoultella ornithinolytica , only resistant to ampicillin and Bactrim -my interpretation of EKG: Normal sinus rhythm, heart rate 80, nonspecific ST depressions with T-wave inversions in V3 to V6, not new, seen previously in 08/14/2023, QTC 470 -my interpretation of chest x-ray: No acute abnormality, no fluid overload, no infiltrate -after an hour of IV fluids and antibiotics, patient is more awake, alert, very talkative, well perfused, last 2 blood pressures 96/48 and 102/49 -patient's chemistry pending, urinalysis pending, x-ray pending -as mentioned above, patient has already been treated and covered with 30 mL/kilogram and antibiotics. -patient to be admitted -sign-out given to my colleague Dr. Bullock Medications Administered Generic Name Dose Route Start Last Admin Trade Name Freq PRN Reason Stop Dose Admin Albumin Human 100 mls @ 100 mls/hr 09/11/23 07:00 09/11/23 07:25 Kedbumin 25 % IV 09/11/23 08:59 100 mls/hr Q1H DEEPALI Administration Discontinued Medications Generic Name Dose Route Start Last Admin Trade Name Freq PRN Reason Stop Dose Admin Ceftriaxone Sodium 1 gm/ 50 mls @ 100 mls/hr 09/11/23 05:49 09/11/23 06:54 Sodium Chloride IV 09/11/23 06:18 Infused ONCE ONE Infusion Sodium Chloride 1,500 mls @ 999 mls/hr 09/11/23 05:53 09/11/23 07:13 Ns IVCONT 09/11/23 07:23 999 mls/hr .Q1H31M ONE Administration Sodium Chloride 1,000 mls @ 999 mls/hr 09/11/23 05:54 09/11/23 06:05 Ns IVCONT 09/11/23 06:54 999 mls/hr .Q1H1M ONE Administration Medical Decision Making Lab Data 09/11/23 06:11 09/11/23 06:11 Labs: Lab Results 09/11/23 09/11/23 Range/Units 06:11 06:27 WBC 12.9 H (4.8-10.8) X10*3/uL RBC 3.77 L (4.20-5.50) X10*6/uL Hgb 10.6 L (12.0-16.0) g/dl Hct 33.6 L (37.0-47.0) % MCV 89.1 (80.0-98.0) fL MCH 28.1 (27.0-33.0) pg MCHC 31.5 (31.0-35.0) g/dl RDW 16.4 H (11.0-16.0) % Plt Count 373 (160-400) X10*3/uL MPV 9.6 (9.4-12.3) fL Immature Gran % (Auto) Cancelled Neut % (Auto) Cancelled Lymph % (Auto) Cancelled [place] % (Auto) Cancelled Eos % (Auto) Cancelled Baso % (Auto) Cancelled Lymph # (Auto) Cancelled [place] # (Auto) Cancelled Eos # (Auto) Cancelled Baso # (Auto) Cancelled Abs Immat Gran (auto) Cancelled Absolute Neuts (auto) Cancelled Absolute Nucleated RBC 0.000 (0.0-0.012) X10*3/uL Nucleated RBC % (auto) 0.0 (0.0-0.2) /100WBC Neutrophils % (Manual) 67 (45-73) % Band Neutrophils % 21 H (3-5) % Lymphocytes % (Manual) 3 L (20-40) % Monocytes % (Manual) 9 (2-11) % Abs Neuts (Manual) 11.4 H (2.0-8.3) X10*3/uL Lymphocytes # (Manual) 0.4 L (1.2-4.9) X10*3/uL Monocytes # (Manual) 1.2 (0.1-1.2) X10*3/uL Toxic Granulation PRESENT Toxic Vacuolation PRESENT Platelet Estimate NORMAL (NORMAL) Large Platelets PRESENT Plt Morphology Comment NOTED RBC Morphology NOTED Acanthocytes (Spur) 2+ (3-5) /OIF PT 12.5 (11.1-13.3) SEC INR 1.0 (0.9-1.1) Lactic Acid 2.4 H* (0.5-2.0) mmol/L Influenza Type A (PCR) NEGATIVE (Negative) Influenza Type B (PCR) NEGATIVE (Negative) RSV RNA Qual (PCR) NEGATIVE (Negative) SARS-CoV-2 RNA (RT-PCR) NEGATIVE (Negative) Critical Care Time Critical Care Time Critical Care Time: Yes Total Critical Care Time: 75 Attestation: I have personally provided critical care time. Time includes review of lab data, radiology results, discussion with consultants, and monitoring for potential decompensation. Intervention performed as documented. Discharge Plan Discharge Clinical Impression: Acute hypotension, Malnutrition Patient Disposition: Admitted As Inpatient Prescriptions: No Action (DME) foot inserts See Rx Instructions .Route .MEDSUPPLY Qty: 1 0RF Rx Instructions: As directed (DME) leno.stocking,knee,reg,smal Misc See Rx Instructions .Route Qty: 12 0RF Rx Instructions: As directed metoprolol succinate 25 mg tablet extended release 24 hr 25 mg PO DAILY Qty: 30 5RF atorvastatin 40 mg tablet 40 mg PO BEDTIME 90 Days Qty: 90 1RF pantoprazole 40 mg tablet,delayed release (DR/EC) 40 mg PO DAILY@0630 90 Days Qty: 90 1RF quetiapine 50 mg tablet 25 mg PO BEDTIME folic acid 1 mg Tablet 1 mg PO DAILY Qty: 90 0RF levofloxacin 750 mg Tablet 750 mg PO Q24H Qty: 6 0RF vancomycin 125 mg Capsule 125 mg PO Q6H Qty: 26 0RF famotidine 20 mg tablet 20 mg PO BID@0900,1200 lorazepam 1 mg tablet 1 mg PO BID PRN (Reason: anxiety) 30 Days Qty: 60 5RF temazepam 15 mg capsule 15 mg PO BEDTIME PRN (Reason: sleep) 30 Days Qty: 30 5RF Print Language: Greek
[2023-09-11 08:00] LABS: Appearance Urine Clear; Color Urine Dark Yellow; Glucose Urine UA Negative (Negative); Leukocyte Esterase Urine Trace (Negative); Nitrite Urine Negative (Negative); UMIC TRIGGER UACC YES; Urine Blood Negative (Negative); Urine Ketones Negative (Negative); Urine Protein 100 (2+) mg/dL (Neg-Trace)
[2023-09-11 08:17] LABS: Reflex Lactate? Lactic Acid Added
[2023-09-11 08:21] LABS: Bacteria Urine Trace (None Seen); RBC Urine 0-2 /HPF (0-2); WBC Urine 0-5 /HPF (0-5)
[2023-09-11 08:45] LABS: Alanine Aminotransferase 8 U/L (0-31); Albumin Level 3.2 g/dL (3.5-5.0); Alkaline Phosphatase 99 U/L (39-117); Anion Gap 13 (12-20); Aspartate Amino Transferase 9 U/L (5-31); Bilirubin Direct 0.1 mg/dL (0.0-0.5); Bilirubin Total 0.3 mg/dL (0.0-1.0); Blood Urea Nitrogen 16 mg/dL (9-16); Calcium 8.8 mg/dL (8.4-10.2); Carbon Dioxide 12 mmol/L (22-29); Chloride 116 mmol/L (96-108); Creatinine Clr Calc Pharmacy 31.3; Estimated Glomerular Filt Rate > 60; Glucose Random 171 mg/dL (60-115); Lipase 19 U/L (8-78); Magnesium 1.9 mg/dL (1.6-2.6); Potassium 2.5 mmol/L (3.3-5.1); Sodium 138 mmol/L (135-145); Total Protein 5.7 g/dL (6.5-8.0)
[2023-09-11] MEDS: Potassium Chloride/H20 10 MEQ/100 ML PIGGYBACK 100 MEQ IV ×2 (09:02→10:38)
[2023-09-11 09:20] LABS: ~Lactic Acid-LAB USE ONLY 2.4 mmol/L (0.5-2.0)
[2023-09-11 09:33] LABS: Troponin-I High Sensitivity < 2.7 ng/L (<3.5-17.0)
--- NOTE | 2023-09-11 10:04 | PC.NURSE ---
Diet order placed for breakfast, this RN obtained order that patient wanted, hospital bed placed in room and pt transitioned to new bed, and repositioned with pillows to get her off pressure points. IVF continue to run, pt reminded throughout morning to keep her arm straight. Pharm contacted about needing oral vanco dosage, awaiting pharm to bring order down to give.
[2023-09-11] MEDS: Potassium Chloride ER 20 MEQ TAB.ER.PRT PO (10:38)
[2023-09-11] MEDS: vancomycin HCL Oral Solution 125 MG/5 ML SOLN.RECON PO (10:38)
--- NOTE | 2023-09-11 10:54 | PHA.MEDREC ---
Pharmacy Consult ? Medication Reconciliation Pharmacy has completed the medication reconciliation.
[2023-09-11 11:03] LABS: Reflex Lactate? 2 Y
--- NOTE | 2023-09-11 11:10 | P.HPHOSP_ITS ---
History of Present Illness Date of Service: 09/11/23 <ONEL Eldridge - Last Filed: 09/11/23 16:06> Attending physician on admission: Jovi Gonzalez <ONEL Eldridge - Last Filed: 09/11/23 16:06> Chief Complaint: Diarrhea, generalized weakness <ONEL Eldridge - Last Filed: 09/11/23 16:06> Pt is a 72-year-old female with a PMH significant for?protein calorie malnutrition, stress induced cardiomyopathy with recovered EF, Raynaud's, GERD, hx of C diff, and mood disorder who presents to the ED with?generalized weakness, diarrhea, and concerns for her ability to take care of herself at home. Patient lives alone in elderly housing and has had multiple admissions for similar symptoms to the hospital since July, most recently from 08/13- 08/18 where patient tested positive for C diff and was treated with p.o. vancomycin for 10 days. Was evaluated by PT at that time who recommended STR, but patient declined both rehab and VNA services. 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 Patient was again hospitalized from 08/19-08/22 and treated for UTI with sepsis. Was discharged to STR this time and then returned home on 09/08. Pt has a HCP who helps around the house most days of the week but not on weekends. Also has [employer]NA[employer] services on Wed/Wed for showering and on Wednesday for cleaning around the house, thought these have not been restarted since discharge from rehab.. Today pt reports calling EMS numerous time for help. Initially called in the morning because she was a mess from an episode of diarrhea and needed to be cleaned up. After EMS left called again for help getting to the kitchen and cooking lunch. EMS did not respond to this request explaining this was not part of their normal services. Pt states she was able to make her way into the kitchen but then got stuck in her dining room chair and could not stand up. Called EMS again for assistance and they brought her to the ED for concerns she was unable to take care of herself at home. Pt is a rather poor historian. Complains of all over body pain and intermittent diarrhea that has been going on for a long time . Is not sure if has been worsening lately. States has not been eating or drinking much lately. No fever, chills, nausea, vomiting, abdominal pain. Denies chest pain/pressure, palpitations. No shortness of breath. In the ED pt was hypotensive as low as 83/45 an elevated HR of 93, vitals otherwise WNL. Labs were significant for leukocytosis of 12.9, potassium 2.5, lactic acid 2.4 with repeat 2.4. UA negative for UTI. Tested negative for influenza, RSV, COVID. CXR showed no acute disease, but showed linear opacity in base unchanged compared to recent CT. ?EKG demonstrated normal sinus rhythm with ST in anterior laterally. Pt was treated with IVF, ceftriaxone albumin, potassium chloride IV and p.o., and vancomycin p.o. Pt will be admitted to the hospital for treatment and further evaluation of recurrent C diff infection with sepsis and hypokalemia. <ONEL Eldridge - Last Filed: 09/11/23 16:06> Review of Systems 2 Review of Systems: Diarrhea All over body pains Denies fever, chills, nausea, vomiting No chest pain/pressure, palpitations Denies shortness of breath <ONEL Eldridge - Last Filed: 09/11/23 16:06> [facility] Medical History: Medical History External hemorrhoids Epidermal inclusion cyst White coat syndrome with high blood pressure but without hypertension Dry eyes Hyponatremia Hypercalcemia Diarrhea Renal calculi Constipation by delayed colonic transit GERD (gastroesophageal reflux disease) UTI (urinary tract infection) Villous adenoma of colon Insomnia Raynauds disease Anxiety <ONEL Eldridge - Last Filed: 09/11/23 16:06> Family History: Family History Father Medical history unknown Mother Dementia Alzheimers disease Mental health disorder Brother Leukemia Sister Medical history unknown <ONEL Eldridge - Last Filed: 09/11/23 16:06> Surgical History: Surgical History History of bronchoscopy History of tonsillectomy <ONEL Eldridge - Last Filed: 09/11/23 16:06> Social History: Social History Household Members: None Household Members Other:: senior care Housing: Assisted Living Facility Housing Other:: senior care Do you presently have visiting nurse or other home services: Yes (companion) Alcohol intake: former Patient Tobacco Use Status: Former Tobacco user Tobacco use type: Cigarette e-Cigarette/Vaping Use: Never Used Second Hand Smoke Exposure: No Use of substances other than those prescribed or required for medical reasons: No Have you been hit, kicked, punched, or otherwise hurt by someone within the past year? If so, by whom?: No Advance Directives: Yes Advance Directives on File: Yes Advance Directives Date on File: 11/23/22 Do you have thoughts of harming others: None Do you have a plan to hurt others: No Plan Recently lost weight without trying: Yes Eating poorly because of decreased appetite: Yes Nutrition Risks: Poor intake 0-25% >4 days Patient : No service: No Current occupational status: retired Cognitive needs: No Hearing needs: No Vision needs: Yes <ONEL Eldridge - Last Filed: 09/11/23 16:06> Meds Allergies/Adverse reactions: Allergies Allergy/AdvReac Type Severity Reaction Status Date / Time No Known Allergies Allergy Verified 09/11/23 05:40 <ONEL Eldridge - Last Filed: 09/11/23 16:06> Home medications: Home Medications ?Medication ?Instructions ?Recorded ?Confirmed ?Last Taken ?Type quetiapine 50 mg tablet 25 mg PO BEDTIME 07/16/23 09/11/23 09/10/23 History famotidine 20 mg tablet 20 mg PO BID@0900,1200 08/14/23 09/11/23 09/10/23 History loperamide 2 mg capsule 2 mg PO Q6H PRN Diarrhea 09/11/23 09/11/23 Unknown History tramadol 50 mg tablet 50 mg PO Q6H PRN Pain 09/11/23 09/11/23 Unknown History <ONEL Eldridge - Last Filed: 09/11/23 16:06> Physical Exam 2 Vital Signs and Narrative: Vital Signs: Last Vital Signs Temp 97.5 F 09/11/23 05:33 Pulse 93 09/11/23 10:03 Resp 20 09/11/23 10:03 BP 118/58 L 09/11/23 10:03 Pulse Ox 97 09/11/23 10:03 O2 Del Method Room Air 09/11/23 10:03 BMI result Body Mass Index 15.2 <ONEL Eldridge - Last Filed: 09/11/23 16:06> Constitutional: Alert, frail-looking, cachectic, in no acute distress. Mental Status: Oriented to person, place and time. Eyes: Pupils are equal, round, and reactive to light. Ear, Nose, and Throat: Oropharynx clear, mucous membranes moist. Ears and nose without deformities. Trachea midline. Respiratory: Clear to auscultation bilaterally. No wheezing, rales, or rhonchi. Cardiovascular: S1, S2 regular. No murmurs, rubs, or gallops. Gastrointestinal: Abdomen soft, non-tender, non-distended. Normal bowel sounds. Neurologic: Cranial nerves II-XII are grossly intact bilaterally. No focal neurological deficits. Moves all extremities spontaneously. Globalized weakness noted. Skin: Warm, dry. Extremities: No edema. <ONEL Eldridge - Last Filed: 09/11/23 16:06> Results Labs CBC and Chem 7: 09/11/23 06:11 09/11/23 14:14 <ONEL Eldridge - Last Filed: 09/11/23 16:06> Labs: Laboratory Results - last 24 hr 09/11/23 09/11/23 09/11/23 06:11 06:27 07:54 MCV 89.1 MCH 28.1 MCHC 31.5 RDW 16.4 H Plt Count 373 MPV 9.6 Immature Gran % (Auto) Cancelled Neut % (Auto) Cancelled Lymph % (Auto) Cancelled Frontier % (Auto) Cancelled Eos % (Auto) Cancelled Baso % (Auto) Cancelled Lymph # (Auto) Cancelled Frontier # (Auto) Cancelled Eos # (Auto) Cancelled Baso # (Auto) Cancelled Abs Immat Gran (auto) Cancelled Absolute Neuts (auto) Cancelled Absolute Nucleated RBC 0.000 Nucleated RBC % (auto) 0.0 Neutrophils % (Manual) 67 Band Neutrophils % 21 H Lymphocytes % (Manual) 3 L Monocytes % (Manual) 9 Abs Neuts (Manual) 11.4 H Lymphocytes # (Manual) 0.4 L Monocytes # (Manual) 1.2 Toxic Granulation PRESENT Toxic Vacuolation PRESENT Platelet Estimate NORMAL Large Platelets PRESENT Plt Morphology Comment NOTED RBC Morphology NOTED Acanthocytes (Spur) 2+ (3-5) PT 12.5 INR 1.0 Anion Gap Estim Creat Clear Calc Estimated GFR Random Glucose Lactic Acid 2.4 H* Lactic Acid F/U @ 2Hr Calcium Magnesium Total Bilirubin Direct Bilirubin AST ALT Alkaline Phosphatase Troponin I High Sens Total Protein Albumin Lipase Urine Color Dark Yellow Urine Appearance Clear Urine pH 6.0 Ur Specific [place] 1.020 Urine Protein 100 (2+) H Urine Glucose (UA) Negative Urine Ketones Negative Urine Blood Negative Urine Nitrite Negative Ur Leukocyte Esterase Trace H Urine RBC 0-2 Urine WBC 0-5 Ur Squamous Epith Cells 3-5 Urine Bacteria Trace Hyaline Casts 3-5 Influenza Type A (PCR) NEGATIVE Influenza Type B (PCR) NEGATIVE RSV RNA Qual (PCR) NEGATIVE SARS-CoV-2 RNA (RT-PCR) NEGATIVE 09/11/23 09/11/23 08:06 08:59 MCV MCH MCHC RDW Plt Count MPV Immature Gran % (Auto) Neut % (Auto) Lymph % (Auto) Frontier % (Auto) Eos % (Auto) Baso % (Auto) Lymph # (Auto) Frontier # (Auto) Eos # (Auto) Baso # (Auto) Abs Immat Gran (auto) Absolute Neuts (auto) Absolute Nucleated RBC Nucleated RBC % (auto) Neutrophils % (Manual) Band Neutrophils % Lymphocytes % (Manual) Monocytes % (Manual) Abs Neuts (Manual) Lymphocytes # (Manual) Monocytes # (Manual) Toxic Granulation Toxic Vacuolation Platelet Estimate Large Platelets Plt Morphology Comment RBC Morphology Acanthocytes (Spur) PT INR Anion Gap 13 Estim Creat Clear Calc 31.3 Estimated GFR > 60 Random Glucose 171 H Lactic Acid Lactic Acid F/U @ 2Hr 2.4 H* Calcium 8.8 D Magnesium 1.9 Total Bilirubin 0.3 Direct Bilirubin 0.1 AST 9 ALT 8 Alkaline Phosphatase 99 Troponin I High Sens < 2.7 D Total Protein 5.7 L Albumin 3.2 L Lipase 19 Urine Color Urine Appearance Urine pH Ur Specific [place] Urine Protein Urine Glucose (UA) Urine Ketones Urine Blood Urine Nitrite Ur Leukocyte Esterase Urine RBC Urine WBC Ur Squamous Epith Cells Urine Bacteria Hyaline Casts Influenza Type A (PCR) Influenza Type B (PCR) RSV RNA Qual (PCR) SARS-CoV-2 RNA (RT-PCR) <ONEL Eldridge - Last Filed: 09/11/23 16:06> Imaging Radiologist's Impressions: Impressions Chest X-Ray 09/11/23 07:24 IMPRESSION: 1. No acute disease. Linear opacity left base likely scarring and/or atelectasis unchanged compared to recent CT 2. Scoliosis. 3. Old granulomatous disease. <ONEL Eldridge - Last Filed: 09/11/23 16:06> Assessment and Plan (1) Acute hypokalemia: Status: Acute <ONEL Eldridge - Last Filed: 09/11/23 16:06> (2) Clostridioides difficile infection: Status: Acute <ONEL Eldridge - Last Filed: 09/11/23 16:06> Pt is a 72-year-old female with a PMH significant for?protein calorie malnutrition, stress induced cardiomyopathy with recovered EF, Raynaud's, GERD, hx of C diff, and mood disorder who presents to the ED with?generalized weakness, diarrhea, and concerns for her ability to take care of herself at home. Pt will be admitted to the hospital for treatment and further evaluation of recurrent C diff infection with sepsis and hypokalemia. Recurrent C diff infection with sepsis Initially tested positive for C diff on 08/15/2023, treated with vancomycin p.o. q.i.d. x10 days Has had intermittent, persistent diarrhea since then Again tested positive for C diff toxin Patient meets sepsis criteria: Tachycardia up to 93 leukocytosis, lactic acid 2.4 Patient received IVF and started on broad-spectrum antibiotics in the ED Will treat with vancomycin p.o. q.i.d., started 09/11/2023 Contact precautions Infectious disease consult Follow cultures Hypokalemia In the setting of above with reduced p.o. intake Received p.o. and IV supplementation in ED Will follow BMP, supplement as necessary Monitor on telemetry EKG changes EKG with ST depressions in anterior lateral leads, new from previous Patient denies chest pain/pressure, palpitations Initial troponin negative Will repeat troponin Monitor on telemetry Generalized weakness Concern for patient being able to care for herself at home PT evaluation Moderate protein calorie malnutrition Pt does not like supplements Low fiber, lactose-free diet per nutrition on last admission Mood disorder Continue home meds HLD Continue HTN Continue metoprolol DNR/DNI Attending:? DVT Prophylaxis: Lovenox Pt will require a hospitalization of at least two nights for treatment of?recurrent C diff infection with sepsis and hypokalemia. Given patient's frail TS and significant comorbidities and recent hospitalizations, patient require hospitalization close monitoring of labs electrolyte repletion as necessary, and PT evaluation for safe disposition home. <ONEL Eldridge - Last Filed: 09/11/23 16:06> Pt is a 72-year-old female with a PMH significant for?protein calorie malnutrition, stress induced cardiomyopathy with recovered EF, Raynaud's, GERD, hx of C diff, and mood disorder who presents to the ED with?generalized weakness, diarrhea, and concerns for her ability to take care of herself at home. Pt will be admitted to the hospital for treatment and further evaluation of recurrent C diff infection with sepsis and hypokalemia. Recurrent C diff infection with sepsis Initially tested positive for C diff on 08/15/2023, treated with vancomycin p.o. q.i.d. x10 days Has had intermittent, persistent diarrhea since then Again tested positive for C diff toxin Patient meets sepsis criteria: Tachycardia up to 93 leukocytosis, lactic acid 2.4 Patient received IVF and started on broad-spectrum antibiotics in the ED Will treat with vancomycin p.o. q.i.d., started 09/11/2023 Contact precautions Infectious disease consult Follow cultures Hypokalemia In the setting of above with reduced p.o. intake Received p.o. and IV supplementation in ED Will follow BMP, supplement as necessary Monitor on telemetry EKG changes EKG with ST depressions in anterior lateral leads, new from previous Patient denies chest pain/pressure, palpitations Initial troponin negative Will repeat troponin Monitor on telemetry Generalized weakness Concern for patient being able to care for herself at home PT evaluation Moderate protein calorie malnutrition Pt does not like supplements Low fiber, lactose-free diet per nutrition on last admission Mood disorder Continue home meds HLD Continue HTN Continue metoprolol DNR/DNI Attending:? DVT Prophylaxis: Lovenox Pt will require a hospitalization of at least two nights for treatment of?recurrent C diff infection with sepsis and hypokalemia. Given patient's frail TS and significant comorbidities and recent hospitalizations, patient require hospitalization close monitoring of labs electrolyte repletion as necessary, and PT evaluation for safe disposition home. Addendum to history and physical by the advanced practice provider, ONEL Parisi I interviewed and examined the patient. I discussed their presentation and management with the MARGE. I reviewed the history and physical and agree with the documentation, with the following additions and corrections: 72yo F with multiple recent admission for Cdiff, UTI, weakness presenting after recent rehab stay with weakness/diarrhea, found to be septic from recurrent Cdiff; also hypokalemic. No chest pain. Lateral ST depressions on EKG. Plan admit to [facility], replete K, treat Cdiff with vanco; consult ID. Monitor Tn-I. <Jovi Gonzalez MD - Last Filed: 09/11/23 17:07> Quality Stroke Does the patient have a stroke diagnosis?: No <ONEL Eldridge - Last Filed: 09/11/23 16:06> VTE Prior VTE?: No <ONEL Eldridge - Last Filed: 09/11/23 16:06> VTE Risk Level:: Medical - moderate - high <ONEL Eldridge - Last Filed: 09/11/23 16:06> VTE Device Contraindication: Treatment Not Indicated <ONEL Eldridge - Last Filed: 09/11/23 16:06> VTE Drug Contraindication: N/A - Med Ordered <ONEL Eldridge - Last Filed: 09/11/23 16:06>
[2023-09-11 12:35] LABS: CDiff Gene PCR POSITIVE (Negative)
[2023-09-11 12:39] LABS: CDiff Toxin Positive (Negative)
[2023-09-11 12:40] LABS: CDIFF Internal ctrl Dots and bkg OK (V)
--- NOTE | 2023-09-11 15:24 | PC.NURSE ---
Pt continues to ring every 5 minutes and yelling out help me pt told multiple times to not yell, that staff is aware she is needing something and will be with her as soon as we can, pt brought PO intake throughout shift. Pt in agreement for purewic in place currenty..
[2023-09-11 15:47] LABS: Anion Gap 14 (12-20); Blood Urea Nitrogen 14 mg/dL (9-16); Calcium 8.9 mg/dL (8.4-10.2); Carbon Dioxide 11 mmol/L (22-29); Chloride 119 mmol/L (96-108); Creatinine Clr Calc Pharmacy 35.4; Estimated Glomerular Filt Rate > 60; Glucose Random 152 mg/dL (60-115); Sodium 141 mmol/L (135-145)
[2023-09-11 15:55] LABS: Troponin-I High Sensitivity 7.8 ng/L (<3.5-17.0)
[2023-09-11] MEDS: vancomycin HCL 125 MG CAPSULE PO ×2 (16:50→22:20)
[2023-09-11] MEDS: LORazepam 1 MG TABLET PO (16:50)
[2023-09-11] MEDS: traMADoL HCL 50 MG TABLET PO ×2 (16:50→22:20)
[2023-09-11] MEDS: Potassium Chloride Packet 20 MEQ PACKET 40 MEQ PO (22:15)
[2023-09-11] MEDS: 0.9 % Sodium Chloride Flush 3 ML SYRINGE IVFLUSH (22:20)
[2023-09-11] MEDS: QUEtiapine Fumarate 25 MG TABLET PO (22:20)
[2023-09-11] MEDS: Atorvastatin Calcium 40 MG TABLET PO (22:20)
[2023-09-11] MEDS: Temazepam 15 MG CAPSULE PO (22:20)
--- NOTE | 2023-09-12 | ECG_ITS ---
Test Reason : ST depreesion Blood Pressure : / mmHG Vent. Rate : 096 BPM Atrial Rate : 096 BPM P-R Int : 104 ms QRS Dur : 068 ms QT Int : 350 ms P-R-T Axes : 081 031 096 degrees QTc Int : 442 ms Sinus rhythm with short NM Nonspecific ST and T wave abnormality Abnormal ECG When compared with ECG of 11-SEP-2023 06:16, ST less depressed in Lateral leads Referred By: Jovi Gonzalez Electronically Signed By:RAISSA SMITH MD
[2023-09-12] MEDS: Lactated Ringers 1,000 ML 999 ML IV (00:30)
[2023-09-12] MEDS: KCl 40 mEq in 0.9 % Sodium Chl 40 MEQ/1,000 ML IV.SOLN 125 MEQ IVCONT ×2 (01:43→09:17)
[2023-09-12 01:46] VITALS: BP 104/59; PULSE 77; RESP 16
[2023-09-12 03:21] VITALS: BP 107/58; PULSE 88; RESP 18; TEMP 37.4; O2SAT 98
[2023-09-12] MEDS: vancomycin HCL 125 MG CAPSULE PO ×4 (05:48→21:56)
[2023-09-12] MEDS: Omeprazole 20 MG CAPSULE.DR PO (05:48)
[2023-09-12 06:13] LABS: Hematocrit 28.4 % (37.0-47.0); Hemoglobin 9.1 g/dl (12.0-16.0); Mean Corpuscular Hemoglobin 28.3 pg (27.0-33.0); Mean Corpuscular Volume 88.5 fL (80.0-98.0); Platelet Count 342 X10*3/uL (160-400); Red Blood Count 3.21 X10*6/uL (4.20-5.50); Red Cell Distribution Width 16.5 % (11.0-16.0); White Blood Count 17.7 X10*3/uL (4.8-10.8)
[2023-09-12 06:34] LABS: Troponin-I High Sensitivity 8.8 ng/L (<3.5-17.0)
[2023-09-12 08:00] VITALS: BP 97/60; PULSE 95; RESP 16; TEMP 36.8; O2SAT 98
[2023-09-12] MEDS: traMADoL HCL 50 MG TABLET PO ×2 (09:17→21:58)
[2023-09-12] MEDS: Metoprolol Succinate ER 25 MG TAB.ER.24H PO (09:17)
[2023-09-12] MEDS: LORazepam 1 MG TABLET PO (09:17)
[2023-09-12] MEDS: Famotidine 20 MG TABLET PO ×2 (09:17→11:33)
--- NOTE | 2023-09-12 10:03 | P.PNIM_ITS ---
Subjective Subjective Date of Service: 09/12/23 Interval History: having diarrhea weak no chest pain or pressure Review of Systems Review of Systems: Yes all other systems are reviewed and are negative Physical Exam 2 Vital Signs: Vital Signs: Last Vital Signs Temp 98.2 F 09/12/23 08:00 Pulse 95 09/12/23 08:00 Resp 16 09/12/23 08:00 BP 97/60 09/12/23 08:00 Pulse Ox 98 09/12/23 08:00 O2 Del Method Room Air 09/12/23 08:00 BMI result Body Mass Index 15.2 Gen: frail, weak, pale HEENT: sclera anicteric, moist mucus membranes Neck: supple Lungs: clear to auscultation bilaterally Heart: regular rate and rhythm, no murmurs Abd: soft, non-tender, non-distended Ext: no edema Skin: warm/well-perfused Neuro: alert and oriented x3, no focal findings Psych: appropriate affect Objective Data Active Medications Acetaminophen (Acetaminophen 325 Mg Tablet) 650 mg PO Q6H PRN PRN Reason: Pain, Mild (Pain Scale 1-3) Atorvastatin Calcium (Atorvastatin Calcium 40 Mg Tablet) 40 mg PO BEDTIME [facility] Last Admin: 09/11/23 22:20 Dose: 40 mg Documented By: JOHN Benzonatate (Benzonatate 100 Mg Capsule) 100 mg PO TID PRN PRN Reason: Cough Enoxaparin Sodium (Enoxaparin Sodium 40 Mg/0.4 Ml Syringe) 40 mg SUBCUT Q24H [facility] Last Admin: 09/11/23 15:12 Dose: Not Given Documented By: YUNIEL Non-Admin Reason: Patient Refused Famotidine (Famotidine 20 Mg Tablet) 20 mg PO BID@0900,1200 [facility] Last Admin: 09/12/23 09:17 Dose: 20 mg Documented By: DANDY Potassium Chloride/Sodium Chloride (Kcl 40 Meq In 0.9 % Sodium Chl) 40 meq in 1,000 mls @ 125 mls/hr IVCONT .Q8H [facility] Last Admin: 09/12/23 09:17 Dose: 125 mls/hr Documented By: DANDY Lorazepam (Lorazepam 1 Mg Tablet) 1 mg PO BID PRN PRN Reason: anxiety Last Admin: 09/12/23 09:17 Dose: 1 mg Documented By: DANDY Metoprolol Succinate (Metoprolol Succinate Er 25 Mg Tab.Er.24h) 25 mg PO DAILY [facility]; Protocol Last Admin: 09/12/23 09:17 Dose: 25 mg Documented By: DANDY Omeprazole (Omeprazole 20 Mg Capsule.) 20 mg PO DAILY@0630 [facility] Last Admin: 09/12/23 05:48 Dose: 20 mg Documented By: JOHN Ondansetron HCl (Ondansetron Hcl 4 Mg/2 Ml Vial) 4 mg IVPUSH Q8H PRN PRN Reason: Nausea and Vomiting Quetiapine Fumarate (Quetiapine Fumarate 25 Mg Tablet) 25 mg PO BEDTIME [facility] Last Admin: 09/11/23 22:20 Dose: 25 mg Documented By: JOHN Sodium Chloride (0.9 % Sodium Chloride Flush 3 Ml Syringe) 3 ml IVFLUSH QSHIFT [facility] Last Admin: 09/12/23 10:02 Dose: Not Given Documented By: DANDY Non-Admin Reason: See Note Temazepam (Temazepam 15 Mg Capsule) 15 mg PO BEDTIME PRN PRN Reason: sleep Last Admin: 09/11/23 22:20 Dose: 15 mg Documented By: JOHN Comments: Pt requesting to help her sleep. Tramadol HCl (Tramadol Hcl 50 Mg Tablet) 50 mg PO Q6H PRN PRN Reason: Pain, Moderate(Pain Scale 4-6) Last Admin: 09/12/23 09:17 Dose: 50 mg Documented By: DANDY Vancomycin HCl (Vancomycin Hcl 125 Mg Capsule) 125 mg PO Q6H [facility] Last Admin: 09/12/23 09:17 Dose: 125 mg Documented By: DANDY Labs 09/12/23 05:33 09/11/23 14:14 Labs: Laboratory Results - last 24 hr 09/11/23 09/11/23 09/12/23 10:33 14:14 05:33 MCV 88.5 MCH 28.3 MCHC 32.0 RDW 16.5 H Plt Count 342 MPV 10.0 Absolute Nucleated RBC 0.000 Nucleated RBC % (auto) 0.0 Anion Gap 14 Estim Creat Clear Calc 35.4 Estimated GFR > 60 Random Glucose 152 H Lactic Acid F/U @ 4Hr Cancelled Calcium 8.9 Troponin I High Sens 7.8 D 8.8 C. difficile Tox B Gene POSITIVE A* C. difficile Toxin A&B Positive A* C. difficile Interpret SEE NOTE Microbiology Microbiology Results: Microbiology 09/11/23 06:11 Blood Culture - Preliminary Blood - Venous No growth after 24 hours. 09/11/23 06:11 Blood Culture - Preliminary Blood - Venous No growth after 24 hours. Assessment and Plan (1) Clostridioides difficile infection: Status: Acute (2) Acute hypokalemia: Status: Acute Plan d2 72yo F with multiple recent admissions here for C. 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 C. difficile infection - vancomycin taper, ID consultation anterolateral ST depressions - no symptoms; Tn-I low; EKG changes have resolved; Cardiology consultation hypoK - repleted; recheck pending; also check Mg moderate protein-calorie malnutrition - supplements HTN hx stress cardiomyopathy - metoprolol succinate HLD - atorvastatin mood disorder - quetiapine, lorazepam, temazepam VTE ppx - LMWH dispo - PT evaluation, likely needs STR In my clinical Total time managing care of this patient today: 40 minutes. Quality Stroke Does the patient have a stroke diagnosis?: No VTE Prior VTE?: No VTE Risk Level:: Medical - moderate - high VTE Device Contraindication: Treatment Not Indicated VTE Drug Contraindication: N/A - Med Ordered
[2023-09-12 11:25] LABS: Anion Gap 9 (12-20); Blood Urea Nitrogen 12 mg/dL (9-16); C Reactive Protein 10.58 mg/dL (< or = 0.50); Calcium 8.7 mg/dL (8.4-10.2); Carbon Dioxide 13 mmol/L (22-29); Chloride 121 mmol/L (96-108); Creatinine Clr Calc Pharmacy 45.1; Estimated Glomerular Filt Rate > 60; Glucose Random 114 mg/dL (60-115); Magnesium 1.6 mg/dL (1.6-2.6); Potassium 3.4 mmol/L (3.3-5.1); Sodium 140 mmol/L (135-145)
[2023-09-12 11:37] VITALS: BP 104/63; PULSE 90; RESP 18; TEMP 36.7; O2SAT 97
[2023-09-12] MEDS: Enoxaparin Sodium 40 MG/0.4 ML SYRINGE SUBCUT (13:23)
[2023-09-12] MEDS: Lactated Ringers 1,000 ML 75 ML IVCONT (14:07)
--- NOTE | 2023-09-12 15:49 | MHC.CM.PN ---
PT REPORTS SHE WAS AT [facility] [employer] SHE SAYS SHE DOES NOT WANT TO RETURN PT STATES SHE WANTS TO GO HOME BUT NEEDS SOMEONE TO STAY WITH HER OVERNIGHT SHE IS AWARE CM WILL MAKE A REFERRAL TO [facility], HOWEVER THERE ARE NO 24 SERVICES AT HOME SHE SAYS SHE KNOWS SHE MAY HAVE TO GO TO [facility] AND IS UNSURE IF SHE WILL EVER MAKE IT HOME AGAIN PT SATES SHE HAS NOT LIKED ANY SNF SHE HAS BEEN IN, SHE HAS BEEN IN SEVERAL LOCAL FACILITIES REFERRALS WILL BE MADE TO [facility] AND SEVERAL SNFS HCP ON FILE PCP: SHALONDA MCGOWAN IMM DELIVERED DCP: [facility] PT DOES HAVE [facility] S TRANSPORT.
[2023-09-12 16:00] VITALS: BP 109/66; PULSE 87; RESP 18; TEMP 36.8; O2SAT 98
[2023-09-12 20:00] VITALS: BP 106/58; PULSE 83; RESP 18; TEMP 36.8; O2SAT 97
[2023-09-12] MEDS: QUEtiapine Fumarate 25 MG TABLET PO (21:56)
[2023-09-12] MEDS: Temazepam 15 MG CAPSULE PO (21:56)
[2023-09-12] MEDS: Atorvastatin Calcium 40 MG TABLET PO (21:56)
--- NOTE | 2023-09-12 22:03 | W.PM.IDCN ---
History of Present Illness Data of Consult Service Date: 09/11/23 Requesting physician: Jovi Gonzalez Primary Care Provider: Unknown Physician HPI Reason for consult: first recurrence Cdiff She presents with weakness and profuse diarrhea. She had Cdiff positive August 14 and received treatment for 10 days with po vancomycin. She had no abdominal discomfort of note. Review of Systems Review of Systems: Yes all other systems are reviewed and are negative PMFSH Past Medical History Medical History (Updated 09/12/23 @ 22:07 by Cheryl Edmond MD) Recurrent Clostridioides difficile diarrhea External hemorrhoids Epidermal inclusion cyst White coat syndrome with high blood pressure but without hypertension Dry eyes Hyponatremia Hypercalcemia Diarrhea Renal calculi Constipation by delayed colonic transit GERD (gastroesophageal reflux disease) UTI (urinary tract infection) Villous adenoma of colon Insomnia Raynauds disease Anxiety Family History Family History Father Medical history unknown Mother Dementia Alzheimers disease Mental health disorder Brother Leukemia Sister Medical history unknown Family history: reviewed and not pertinent Surgical History Surgical History History of bronchoscopy History of tonsillectomy Social History Social History Household Members: None Household Members Other:: skilled nursing Housing: Assisted Living Facility Housing Other:: skilled nursing Do you presently have visiting nurse or other home services: Yes (gig tender) Alcohol intake: former Patient Tobacco Use Status: Former Tobacco user Tobacco use type: Cigarette e-Cigarette/Vaping Use: Never Used Second Hand Smoke Exposure: No Use of substances other than those prescribed or required for medical reasons: No Currently Displaying Signs/Symptoms of Drug Intoxication Withdrawal: No Have you been hit, kicked, punched, or otherwise hurt by someone within the past year? If so, by whom?: No Advance Directives: Yes Advance Directives on File: Yes Advance Directives Date on File: 11/23/22 Do you have thoughts of harming others: None Do you have a plan to hurt others: No Plan Recently lost weight without trying: Yes Eating poorly because of decreased appetite: Yes Nutrition Risks: Poor intake 0-25% >4 days Patient : No service: No Current occupational status: retired Cognitive needs: No Hearing needs: No Vision needs: Yes Meds Allergies Allergy/AdvReac Type Severity Reaction Status Date / Time No Known Allergies Allergy Verified 09/11/23 05:40 Active Medications: Current Medications Acetaminophen (Acetaminophen 325 Mg Tablet) 650 mg PO Q6H PRN PRN Reason: Pain, Mild (Pain Scale 1-3) Atorvastatin Calcium (Atorvastatin Calcium 40 Mg Tablet) 40 mg PO BEDTIME [facility] Last Admin: 09/12/23 21:56 Dose: 40 mg Benzonatate (Benzonatate 100 Mg Capsule) 100 mg PO TID PRN PRN Reason: Cough Enoxaparin Sodium (Enoxaparin Sodium 40 Mg/0.4 Ml Syringe) 40 mg SUBCUT Q24H [facility] Last Admin: 09/12/23 13:23 Dose: 40 mg Famotidine (Famotidine 20 Mg Tablet) 20 mg PO BID@0900,1200 [facility] Last Admin: 09/12/23 11:33 Dose: 20 mg Lactated Ringer's (Lr) 1,000 mls @ 75 mls/hr IVCONT .[id number] [facility] Last Admin: 09/12/23 14:07 Dose: 75 mls/hr Lorazepam (Lorazepam 1 Mg Tablet) 1 mg PO BID PRN PRN Reason: anxiety Last Admin: 09/12/23 09:17 Dose: 1 mg Metoprolol Succinate (Metoprolol Succinate Er 25 Mg Tab.Er.24h) 25 mg PO DAILY [facility]; Protocol Last Admin: 09/12/23 09:17 Dose: 25 mg Omeprazole (Omeprazole 20 Mg Capsule.Dr) 20 mg PO DAILY@0630 [facility] Last Admin: 09/12/23 05:48 Dose: 20 mg Ondansetron HCl (Ondansetron Hcl 4 Mg/2 Ml Vial) 4 mg IVPUSH Q8H PRN PRN Reason: Nausea and Vomiting Quetiapine Fumarate (Quetiapine Fumarate 25 Mg Tablet) 25 mg PO BEDTIME [facility] Last Admin: 09/12/23 21:56 Dose: 25 mg Sodium Chloride (0.9 % Sodium Chloride Flush 3 Ml Syringe) 3 ml IVFLUSH QSHIFT [facility] Last Admin: 09/12/23 10:02 Dose: Not Given Temazepam (Temazepam 15 Mg Capsule) 15 mg PO BEDTIME PRN PRN Reason: sleep Last Admin: 09/12/23 21:56 Dose: 15 mg Tramadol HCl (Tramadol Hcl 50 Mg Tablet) 50 mg PO Q6H PRN PRN Reason: Pain, Moderate(Pain Scale 4-6) Last Admin: 09/12/23 21:58 Dose: 50 mg Vancomycin HCl (Vancomycin Hcl 125 Mg Capsule) 125 mg PO Q6H [facility] Last Admin: 09/12/23 21:56 Dose: 125 mg Home Medications ?Medication ?Instructions ?Recorded ?Confirmed ?Last Taken ?Type quetiapine 50 mg tablet 25 mg PO BEDTIME 07/16/23 09/11/23 09/10/23 History famotidine 20 mg tablet 20 mg PO BID@0900,1200 08/14/23 09/11/23 09/10/23 History loperamide 2 mg capsule 2 mg PO Q6H PRN Diarrhea 09/11/23 09/11/23 Unknown History tramadol 50 mg tablet 50 mg PO Q6H PRN Pain 09/11/23 09/11/23 Unknown History Physical Exam Vital Signs: Vital Signs: Last Vital Signs Temp 98.2 F 09/12/23 20:00 Pulse 83 09/12/23 20:00 Resp 18 09/12/23 20:00 BP 106/58 L 09/12/23 20:00 Pulse Ox 97 09/12/23 20:00 O2 Del Method Room Air 09/12/23 20:00 BMI result Body Mass Index 15.2 Const: General: cooperative HEENT: Head: Yes normal to inspection Face and sinus: Yes normal facial exam Mouth: Normal oral and palatal mucosa present Teeth and gingiva: dentition normal Eyes: General: appearance normal, both eyes and all related structures Pupils: Equal, round and reactive pupils present Resp: Effort & Inspection: normal respiratory effort Cardio: Rate: regular rate Rhythm: regular rhythm GI: Palpation (GI): Soft to palpation and nontender : General: Yes no CVA tenderness Back/Spine/Pelvis: Back: no CVA tenderness Skin: General skin exam: no rashes or lesions noted Neuro: General: moves all extremities Cranial nerves: Yes Equal, round and reactive pupils present Extrem: General: Yes normal to inspection Psych: Appearance: grossly normal Results Labs 09/12/23 05:33 09/12/23 05:33 Labs: Short CBC 09/12/23 Range/Units 05:33 WBC 17.7 H (4.8-10.8) X10*3/uL Hgb 9.1 L (12.0-16.0) g/dl Hct 28.4 L (37.0-47.0) % Plt Count 342 (160-400) X10*3/uL BMP 09/12/23 05:33 Sodium 140 Potassium 3.4 Chloride 121 H Carbon Dioxide 13 L BUN 12 Creatinine 0.61 Calcium 8.7 Microbiology Microbiology Results: Microbiology 09/11/23 06:11 Blood - Venous Blood Culture - Preliminary No growth after 24 hours. 09/11/23 06:11 Blood - Venous Blood Culture - Preliminary No growth after 24 hours. Assessment and Plan (1) Clostridioides difficile infection: Status: Acute (2) Recurrent Clostridioides difficile diarrhea: Status: Acute She has recurrence within a month She has been on antibiotics in past for UTI,likely cause Now give taper Vancomycin 125 qid for 10 days,Vancomycin 125 tid one week,Vancomycin 125 bid one week,Vancomycin daily one week and then Vancomycin 125 mg every ,,Wednesday indefinitely She may or may not be candidate for bezlotoxumab (Zinplava) depends on cardiologists opinions because not supposed to give with CHF. I can see as outpatient. She probably should receive po Vancomycin 125 mg qid while on antibiotics and for 48 hours after.
[2023-09-13] VITALS (7 sets, daily range): BP systolic 92–131; BP diastolic 50–67; PULSE 75–88; RESP 18–20; TEMP 36.1–37; O2SAT 95–100; BMI 15.2
[2023-09-13] MEDS: Lactated Ringers 1,000 ML 999 ML IV (02:20)
[2023-09-13] MEDS: vancomycin HCL 125 MG CAPSULE PO ×4 (05:27→23:24)
[2023-09-13] MEDS: Omeprazole 20 MG CAPSULE.DR PO (05:27)
[2023-09-13] MEDS: Famotidine 20 MG TABLET PO ×2 (07:53→11:15)
[2023-09-13] MEDS: Lactated Ringers 1,000 ML 75 ML IVCONT ×2 (07:54→23:39)
[2023-09-13 09:02] LABS: Anion Gap 7 (12-20); Blood Urea Nitrogen 11 mg/dL (9-16); Carbon Dioxide 16 mmol/L (22-29); Chloride 121 mmol/L (96-108); Creatinine Clr Calc Pharmacy 45.9; Estimated Glomerular Filt Rate > 60; Glucose Random 102 mg/dL (60-115); Potassium 3.7 mmol/L (3.3-5.1); Sodium 140 mmol/L (135-145)
[2023-09-13 09:03] LABS: Hematocrit 32.1 % (37.0-47.0); Hemoglobin 10.1 g/dl (12.0-16.0); Mean Corpuscular HGB Conc 31.5 g/dl (31.0-35.0); Mean Corpuscular Hemoglobin 28.7 pg (27.0-33.0); Mean Corpuscular Volume 91.2 fL (80.0-98.0); Mean Platelet Volume 9.8 fL (9.4-12.3); Platelet Count 387 X10*3/uL (160-400); Red Blood Count 3.52 X10*6/uL (4.20-5.50); Red Cell Distribution Width 17.3 % (11.0-16.0); White Blood Count 17.3 X10*3/uL (4.8-10.8)
--- NOTE | 2023-09-13 10:17 | MHC.CM.PN ---
Patient is not yet medically cleared for dc; PT is recommending STR and CM will follow.
--- NOTE | 2023-09-13 11:16 | MHC.CLN ---
PT IS MODERATELY MALNOURISHED PT WITH MILDLY DEPLETED SUBCUTANEOUS FAT AND MUSCLE MASS WITH BMI 15 AND NONSIGNIFICANT WT LOSS X1 YEAR WITH CHRONIC POOR PO INTAKE AND CHRONIC DIARRHEA R/T C-DIFF PT WITH 5% NONSIGNIFICANT WT LOSS X 6 MONTHS PT WITH 11% NON-SIGNIFICANT WT LOSS X 1YEAR UBW 80# PER PT. PT APPEARS FRAIL AND CACHETIC FAMILIAR FROM PREVIOUS RECENT ADMISSIONS FOR C-DIFF DIET RX: LOW FIBER LACTOSE FREE-RECOMMEND BLAND DIET WITH LACTOSE CONTROL PT DISLIKES SUPPLEMENTS BUT WILL ACCEPT ICE CREAM AND FORTIFIED ICE CREAM (MAGIC CUP TO INCREASE KCALS) WILL ADD TID TO INCREASE KCALS PT TYPICALLY DOES NOT CONSUME DINNER. PT REPORTS APPETITE IS GOOD UNLESS I GET UPSET (HX ANXIETY). PLAN: 1 CHANGE DIET TO BLAND LACTOSE CONTROLLED 2. MAGIC CUP TID WITH MEALS TO PROVIDE 870KCALS, 27G PROTEIN MONITOR PO INTAKE AND ENCOURAGE SUPPLEMENTS SEE ALSO FULL CLINICAL NUTRITION ASSESSMENT
--- NOTE | 2023-09-13 11:26 | P.CONCA_ITS ---
History of Present Illness History of Present Illness Date of Service: 09/13/23 Chief complaint: C Diff, hypokalemia, EKG changes Narrative: 72-year-old female with a recurrent C diff infection hypokalemia. She had EKG performed on September 10 showing T-wave inversions with ST depressions V3 to V6 with QT interval of 470 milliseconds. She has known history of takotsubo cardiomyopathy in the past. These changes have improved after repletion of potassium. She has not complaining of any chest discomfort. Her main complaint is diarrhea and back pain due to laying in bed. [facility] Past Medical History Medical History (Updated 09/13/23 @ 11:30 by Alvino Joseph MD) Recurrent Clostridioides difficile diarrhea External hemorrhoids Epidermal inclusion cyst White coat syndrome with high blood pressure but without hypertension Dry eyes Hyponatremia Hypercalcemia Diarrhea Renal calculi Constipation by delayed colonic transit GERD (gastroesophageal reflux disease) UTI (urinary tract infection) Villous adenoma of colon Insomnia Raynauds disease Anxiety Family History Family History Father Medical history unknown Mother Dementia Alzheimers disease Mental health disorder Brother Leukemia Sister Medical history unknown Family history: reviewed and not pertinent Surgical History Surgical History History of bronchoscopy History of tonsillectomy Social History Social History Household Members: None Household Members Other:: care home Housing: Assisted Living Facility Housing Other:: care home Do you presently have visiting nurse or other home services: Yes (scruff worker) Alcohol intake: former Patient Tobacco Use Status: Former Tobacco user Tobacco use type: Cigarette e-Cigarette/Vaping Use: Never Used Second Hand Smoke Exposure: No Use of substances other than those prescribed or required for medical reasons: No Currently Displaying Signs/Symptoms of Drug Intoxication Withdrawal: No Have you been hit, kicked, punched, or otherwise hurt by someone within the past year? If so, by whom?: No Advance Directives: Yes Advance Directives on File: Yes Advance Directives Date on File: 11/23/22 Do you have thoughts of harming others: None Do you have a plan to hurt others: No Plan Recently lost weight without trying: Yes Eating poorly because of decreased appetite: Yes Nutrition Risks: Poor intake 0-25% >4 days Patient : No service: No Current occupational status: retired Cognitive needs: No Hearing needs: No Vision needs: Yes Meds Allergies Allergy/AdvReac Type Severity Reaction Status Date / Time No Known Allergies Allergy Verified 09/11/23 05:40 Active Medications: Current Medications Acetaminophen (Acetaminophen 325 Mg Tablet) 650 mg PO Q6H PRN PRN Reason: Pain, Mild (Pain Scale 1-3) Atorvastatin Calcium (Atorvastatin Calcium 40 Mg Tablet) 40 mg PO BEDTIME [facility] Last Admin: 09/12/23 21:56 Dose: 40 mg Benzonatate (Benzonatate 100 Mg Capsule) 100 mg PO TID PRN PRN Reason: Cough Enoxaparin Sodium (Enoxaparin Sodium 40 Mg/0.4 Ml Syringe) 40 mg SUBCUT Q24H [facility] Last Admin: 09/12/23 13:23 Dose: 40 mg Famotidine (Famotidine 20 Mg Tablet) 20 mg PO BID@0900,1200 [facility] Last Admin: 09/13/23 11:15 Dose: 20 mg Lactated Ringer's (Lr) 1,000 mls @ 75 mls/hr IVCONT .[id number] [facility] Last Admin: 09/13/23 07:54 Dose: 75 mls/hr Lorazepam (Lorazepam 1 Mg Tablet) 1 mg PO BID PRN PRN Reason: anxiety Last Admin: 09/12/23 09:17 Dose: 1 mg Metoprolol Succinate (Metoprolol Succinate Er 25 Mg Tab.Er.24h) 25 mg PO DAILY [facility]; Protocol Last Admin: 09/13/23 07:57 Dose: Not Given Omeprazole (Omeprazole 20 Mg Capsule.Dr) 20 mg PO DAILY@0630 [facility] Last Admin: 09/13/23 05:27 Dose: 20 mg Ondansetron HCl (Ondansetron Hcl 4 Mg/2 Ml Vial) 4 mg IVPUSH Q8H PRN PRN Reason: Nausea and Vomiting Quetiapine Fumarate (Quetiapine Fumarate 25 Mg Tablet) 25 mg PO BEDTIME [facility] Last Admin: 09/12/23 21:56 Dose: 25 mg Sodium Chloride (0.9 % Sodium Chloride Flush 3 Ml Syringe) 3 ml IVFLUSH QSHIFT [facility] Last Admin: 09/13/23 07:53 Dose: Not Given Temazepam (Temazepam 15 Mg Capsule) 15 mg PO BEDTIME PRN PRN Reason: sleep Last Admin: 09/12/23 21:56 Dose: 15 mg Tramadol HCl (Tramadol Hcl 50 Mg Tablet) 50 mg PO Q6H PRN PRN Reason: Pain, Moderate(Pain Scale 4-6) Last Admin: 09/12/23 21:58 Dose: 50 mg Vancomycin HCl (Vancomycin Hcl 125 Mg Capsule) 125 mg PO Q6H [facility] Last Admin: 09/13/23 11:14 Dose: 125 mg Home Medications ?Medication ?Instructions ?Recorded ?Confirmed ?Last Taken ?Type quetiapine 50 mg tablet 25 mg PO BEDTIME 07/16/23 09/11/23 09/10/23 History famotidine 20 mg tablet 20 mg PO BID@0900,1200 08/14/23 09/11/23 09/10/23 History loperamide 2 mg capsule 2 mg PO Q6H PRN Diarrhea 09/11/23 09/11/23 Unknown History tramadol 50 mg tablet 50 mg PO Q6H PRN Pain 09/11/23 09/11/23 Unknown History Physical Exam 2 Vital Signs: Vital Signs: Last Vital Signs Temp 98.6 F 09/13/23 07:27 Pulse 88 09/13/23 07:27 Resp 20 09/13/23 07:27 BP 98/55 L 09/13/23 07:27 Pulse Ox 98 09/13/23 07:27 O2 Del Method Room Air 09/13/23 07:27 BMI result Body Mass Index 15.2 GENERAL APPEARANCE: in no acute distress, ill-appearing. NECK: no carotid bruit, no jugular venous distention. SKIN: no suspicious lesions, warm and dry. HEART: no murmurs, regular rate and rhythm. LUNGS: clear to auscultation bilaterally. ABDOMEN: soft, mildly distended. Nontender. EXTREMITIES: no edema. PERIPHERAL PULSES: equal. NEUROLOGIC: No gross deficits, AAO X 3 Objective Labs and Meds 09/13/23 08:24 09/13/23 08:24 Lab results: Laboratory Results - last 24 hr 09/13/23 08:24 WBC 17.3 H RBC 3.52 L Hgb 10.1 L Hct 32.1 L MCV 91.2 MCH 28.7 MCHC 31.5 RDW 17.3 H Plt Count 387 MPV 9.8 Absolute Nucleated RBC 0.000 Nucleated RBC % (auto) 0.0 Sodium 140 Potassium 3.7 Chloride 121 H Carbon Dioxide 16 L Anion Gap 7 L BUN 11 Creatinine 0.60 Estim Creat Clear Calc 45.9 Estimated GFR > 60 Random Glucose 102 Calcium 9.0 Assessment and Plan (1) Acute hypokalemia: Status: Acute (2) Abnormal EKG: Status: Acute Plan 72-year-old female with history of takotsubo cardiomyopathy presenting for recurrent C diff infection and diarrhea. She has hypokalemia and developed EKG changes with T-wave inversions and ST depressions in the precordial leads. She has no symptoms. These changes are due to hypokalemia and with repletion of potassium EKG has improved significantly. Avoid PPI. Monitor and replete potassium aggressively. No further workup required. Thank you for allowing me to participate in the care of your patient. Please feel free to contact me if you have any questions. Procedures Date of Service Date of Service: 09/13/23
--- NOTE | 2023-09-13 11:29 | HO.PM.IMPN ---
Subjective Subjective Date of Service: 09/13/23 Interval History: 2 episodes watery diarrhea yesterday BP soft this AM denies lightheadedness Review of Systems Review of Systems: Yes all other systems are reviewed and are negative Physical Exam Vital Signs: Vital Signs: Last Vital Signs Temp 97.9 F 09/13/23 11:25 Pulse 76 09/13/23 11:25 Resp 20 09/13/23 11:25 BP 92/50 L 09/13/23 11:25 Pulse Ox 98 09/13/23 11:25 O2 Del Method Room Air 09/13/23 11:25 BMI result Body Mass Index 15.2 Gen: frail, weak, pale HEENT: sclera anicteric, moist mucus membranes Neck: supple Lungs: clear to auscultation bilaterally Heart: regular rate and rhythm, no murmurs Abd: soft, non-tender, non-distended Ext: no edema Skin: warm/well-perfused Neuro: alert and oriented x3, no focal findings Psych: appropriate affect Objective Data Active Medications Acetaminophen (Acetaminophen 325 Mg Tablet) 650 mg PO Q6H PRN PRN Reason: Pain, Mild (Pain Scale 1-3) Atorvastatin Calcium (Atorvastatin Calcium 40 Mg Tablet) 40 mg PO BEDTIME [facility] Last Admin: 09/12/23 21:56 Dose: 40 mg Documented By: LAFLAMC Benzonatate (Benzonatate 100 Mg Capsule) 100 mg PO TID PRN PRN Reason: Cough Enoxaparin Sodium (Enoxaparin Sodium 40 Mg/0.4 Ml Syringe) 40 mg SUBCUT Q24H [facility] Last Admin: 09/12/23 13:23 Dose: 40 mg Documented By: DANDY Famotidine (Famotidine 20 Mg Tablet) 20 mg PO BID@0900,1200 [facility] Last Admin: 09/13/23 11:15 Dose: 20 mg Documented By: JAYE Lactated Ringer's (Lr) 1,000 mls @ 75 mls/hr IVCONT .[id number] [facility] Last Admin: 09/13/23 07:54 Dose: 75 mls/hr Documented By: JAYE Lorazepam (Lorazepam 1 Mg Tablet) 1 mg PO BID PRN PRN Reason: anxiety Last Admin: 09/12/23 09:17 Dose: 1 mg Documented By: HO.SOFFAA Metoprolol Succinate (Metoprolol Succinate Er 25 Mg Tab.Er.24h) 25 mg PO DAILY [facility]; Protocol Last Admin: 09/13/23 07:57 Dose: Not Given Documented By: JAYE Non-Admin Reason: soft BP-MD held med Omeprazole (Omeprazole 20 Mg Capsule.Dr) 20 mg PO DAILY@0630 [facility] Last Admin: 09/13/23 05:27 Dose: 20 mg Documented By: MIKAYLA Ondansetron HCl (Ondansetron Hcl 4 Mg/2 Ml Vial) 4 mg IVPUSH Q8H PRN PRN Reason: Nausea and Vomiting Quetiapine Fumarate (Quetiapine Fumarate 25 Mg Tablet) 25 mg PO BEDTIME [facility] Last Admin: 09/12/23 21:56 Dose: 25 mg Documented By: MIKAYLA Sodium Chloride (0.9 % Sodium Chloride Flush 3 Ml Syringe) 3 ml IVFLUSH QSHIFT [facility] Last Admin: 09/13/23 07:53 Dose: Not Given Documented By: JAYE Non-Admin Reason: IV Running Temazepam (Temazepam 15 Mg Capsule) 15 mg PO BEDTIME PRN PRN Reason: sleep Last Admin: 09/12/23 21:56 Dose: 15 mg Documented By: MIKAYLA Tramadol HCl (Tramadol Hcl 50 Mg Tablet) 50 mg PO Q6H PRN PRN Reason: Pain, Moderate(Pain Scale 4-6) Last Admin: 09/12/23 21:58 Dose: 50 mg Documented By: MIKAYLA Vancomycin HCl (Vancomycin Hcl 125 Mg Capsule) 125 mg PO Q6H [facility] Last Admin: 09/13/23 11:14 Dose: 125 mg Documented By: JAYE Labs 09/13/23 08:24 09/13/23 08:24 Labs: Laboratory Results - last 24 hr 09/13/23 08:24 MCV 91.2 MCH 28.7 MCHC 31.5 RDW 17.3 H Plt Count 387 MPV 9.8 Absolute Nucleated RBC 0.000 Nucleated RBC % (auto) 0.0 Anion Gap 7 L Estim Creat Clear Calc 45.9 Estimated GFR > 60 Random Glucose 102 Calcium 9.0 Microbiology Microbiology Results: Microbiology 09/11/23 06:11 Blood Culture - Preliminary Blood - Venous No growth after 48 hours. 09/11/23 06:11 Blood Culture - Preliminary Blood - Venous No growth after 48 hours. Assessment and Plan (1) Clostridioides difficile infection: Status: Acute (2) Acute hypokalemia: Status: Acute Plan d3 72yo F with multiple recent admissions here for C. 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 C. difficile infection - vancomycin taper 09/10- , ID consultation: Vancomycin 125 qid for 10 days,Vancomycin 125 tid one week,Vancomycin 125 bid one week,Vancomycin daily one week and then Vancomycin 125 mg every ,,Wednesday indefinitely She may or may not be candidate for bezlotoxumab (Zinplava) depends on cardiologists opinions because not supposed to give with CHF. I can see as outpatient. She probably should receive po Vancomycin 125 mg qid while on antibiotics and for [address] depressions - no symptoms; Tn-I low; EKG changes have resolved; Cardiology consulted and attributed to hypokalemia; no further workup hypoK - repleted moderate protein-calorie malnutrition - supplements HTN hx stress cardiomyopathy - metoprolol succinate [held today due to soft BP and giving IV fluids] HLD - atorvastatin mood disorder - quetiapine, lorazepam, temazepam VTE ppx - LMWH dispo - STR In my clinical judgment, the patient requires continued inpatient hospitalization for the following reasons: C diff still symptomatic Total time managing care of this patient today: 35 minutes. Quality Stroke Does the patient have a stroke diagnosis?: No VTE Prior VTE?: No VTE Risk Level:: Medical - moderate - high VTE Device Contraindication: Treatment Not Indicated VTE Drug Contraindication: N/A - Med Ordered
[2023-09-13] MEDS: Enoxaparin Sodium 40 MG/0.4 ML SYRINGE SUBCUT (13:25)
--- NOTE | 2023-09-13 15:05 | MHC.CM.PN ---
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 CM will follow.
[2023-09-13] MEDS: traMADoL HCL 50 MG TABLET PO (23:22)
[2023-09-13] MEDS: QUEtiapine Fumarate 25 MG TABLET PO (23:23)
[2023-09-13] MEDS: Atorvastatin Calcium 40 MG TABLET PO (23:23)
[2023-09-13] MEDS: LORazepam 1 MG TABLET PO (23:24)
[2023-09-13] MEDS: Temazepam 15 MG CAPSULE PO (23:37)
[2023-09-14 03:09] VITALS: BP 116/64; PULSE 84; RESP 20; TEMP 36.9; O2SAT 95
[2023-09-14] MEDS: vancomycin HCL 125 MG CAPSULE PO ×3 (05:22→15:31)
[2023-09-14] MEDS: Omeprazole 20 MG CAPSULE.DR PO (05:22)
[2023-09-14 07:33] VITALS: BP 127/70; PULSE 93; RESP 16; TEMP 37.1; O2SAT 96
[2023-09-14 07:40] LABS: Anion Gap 10 (12-20); Blood Urea Nitrogen 12 mg/dL (9-16); C Reactive Protein 4.94 mg/dL (< or = 0.50); Calcium 8.7 mg/dL (8.4-10.2); Carbon Dioxide 15 mmol/L (22-29); Chloride 118 mmol/L (96-108); Creatinine Clr Calc Pharmacy 48.4; Estimated Glomerular Filt Rate > 60; Glucose Random 77 mg/dL (60-115); Magnesium 1.7 mg/dL (1.6-2.6); Potassium 3.7 mmol/L (3.3-5.1); Sodium 139 mmol/L (135-145)
[2023-09-14 08:33] LABS: MANUAL DIFF FLAG NO
[2023-09-14 08:35] LABS: Basophils Percent Auto 0.2 % (0-2); Eosinophils Absolute Auto 0.2 X10*3/uL (0.0-0.4); Eosinophils Percent Auto 1.7 % (0-4); Hematocrit 33.4 % (37.0-47.0); Hemoglobin 10.5 g/dl (12.0-16.0); Imm Gran Abs Auto 0.08 X10*3/uL (0.00-0.03); Imm Gran Pct Auto 0.6 % (0.0-0.4); Lymphocytes Absolute Auto 1.7 X10*3/uL (1.2-4.9); Lymphocytes Percent Auto 12.8 % (20-40); Mean Corpuscular HGB Conc 31.4 g/dl (31.0-35.0); Mean Corpuscular Hemoglobin 28.2 pg (27.0-33.0); Mean Corpuscular Volume 89.8 fL (80.0-98.0); Mean Platelet Volume 10.3 fL (9.4-12.3); Monocytes Absolute Auto 0.6 X10*3/uL (0.1-1.2); Monocytes Percent Auto 4.3 % (2-11); Neutrophils Absolute Auto 10.8 x10*3/uL (2.0-8.3); Neutrophils Percent Auto 80.4 % (45-73); Platelet Count 381 X10*3/uL (160-400); Red Blood Count 3.72 X10*6/uL (4.20-5.50); Red Cell Distribution Width 17.2 % (11.0-16.0); White Blood Count 13.5 X10*3/uL (4.8-10.8)
[2023-09-14] MEDS: Metoprolol Succinate ER 25 MG TAB.ER.24H PO (09:33)
[2023-09-14] MEDS: 0.9 % Sodium Chloride Flush 3 ML SYRINGE IVFLUSH (09:33)
[2023-09-14] MEDS: Famotidine 20 MG TABLET PO ×2 (09:33→11:21)
[2023-09-14] MEDS: LORazepam 1 MG TABLET PO (11:48)
--- NOTE | 2023-09-14 12:52 | PC.NURSE ---
per MD order, mcdonald cath removed at 12:35. pt is due to void at [id number] today
--- NOTE | 2023-09-14 13:17 | P.PNIM_ITS ---
Subjective Subjective Date of Service: 09/14/23 Interval History: diarrhea resolved still quite weak Physical Exam 2 Vital Signs: Vital Signs: Last Vital Signs Temp 98.7 F 09/14/23 07:33 Pulse 93 09/14/23 07:33 Resp 16 09/14/23 07:33 BP 127/70 09/14/23 07:33 Pulse Ox 96 09/14/23 07:33 O2 Del Method Room Air 09/14/23 07:33 BMI result Body Mass Index 15.2 Gen: frail, weak, pale HEENT: sclera anicteric, moist mucus membranes Neck: supple Lungs: clear to auscultation bilaterally Heart: regular rate and rhythm, no murmurs Abd: soft, non-tender, non-distended Ext: no edema Skin: warm/well-perfused Neuro: alert and oriented x3, no focal findings Psych: appropriate affect Objective Data Active Medications Acetaminophen (Acetaminophen 325 Mg Tablet) 650 mg PO Q6H PRN PRN Reason: Pain, Mild (Pain Scale 1-3) Atorvastatin Calcium (Atorvastatin Calcium 40 Mg Tablet) 40 mg PO BEDTIME [facility] Last Admin: 09/13/23 23:23 Dose: 40 mg Documented By: SHRUTHI Benzonatate (Benzonatate 100 Mg Capsule) 100 mg PO TID PRN PRN Reason: Cough Enoxaparin Sodium (Enoxaparin Sodium 40 Mg/0.4 Ml Syringe) 40 mg SUBCUT Q24H [facility] Last Admin: 09/13/23 13:25 Dose: 40 mg Documented By: JAYE Famotidine (Famotidine 20 Mg Tablet) 20 mg PO BID@0900,1200 [facility] Last Admin: 09/14/23 11:21 Dose: 20 mg Documented By: JAYE Lactated Ringer's (Lr) 1,000 mls @ 75 mls/hr IVCONT .[id number] [facility] Last Admin: 09/13/23 23:39 Dose: 75 mls/hr Documented By: SHRUTHI Lorazepam (Lorazepam 1 Mg Tablet) 1 mg PO BID PRN PRN Reason: anxiety Last Admin: 09/14/23 11:48 Dose: 1 mg Documented By: JAYE Metoprolol Succinate (Metoprolol Succinate Er 25 Mg Tab.Er.24h) 25 mg PO DAILY [facility]; Protocol Last Admin: 09/14/23 09:33 Dose: 25 mg Documented By: HI Omeprazole (Omeprazole 20 Mg Capsule.Dr) 20 mg PO DAILY@0630 [facility] Last Admin: 09/14/23 05:22 Dose: 20 mg Documented By: SHRUTHI Ondansetron HCl (Ondansetron Hcl 4 Mg/2 Ml Vial) 4 mg IVPUSH Q8H PRN PRN Reason: Nausea and Vomiting Quetiapine Fumarate (Quetiapine Fumarate 25 Mg Tablet) 25 mg PO BEDTIME [facility] Last Admin: 09/13/23 23:23 Dose: 25 mg Documented By: SHRUTHI Sodium Chloride (0.9 % Sodium Chloride Flush 3 Ml Syringe) 3 ml IVFLUSH QSHIFT [facility] Last Admin: 09/14/23 09:33 Dose: 3 ml Documented By: HI Temazepam (Temazepam 15 Mg Capsule) 15 mg PO BEDTIME PRN PRN Reason: sleep Last Admin: 09/13/23 23:37 Dose: 15 mg Documented By: SHRUTHI Tramadol HCl (Tramadol Hcl 50 Mg Tablet) 50 mg PO Q6H PRN PRN Reason: Pain, Moderate(Pain Scale 4-6) Last Admin: 09/13/23 23:22 Dose: 50 mg Documented By: SHRUTHI Vancomycin HCl (Vancomycin Hcl 125 Mg Capsule) 125 mg PO Q6H [facility] Last Admin: 09/14/23 11:20 Dose: 125 mg Documented By: PHANLYM Labs 09/14/23 06:48 09/14/23 06:48 Labs: Laboratory Results - last 24 hr 09/14/23 06:48 MCV 89.8 MCH 28.2 MCHC 31.4 RDW 17.2 H Plt Count 381 MPV 10.3 Immature Gran % (Auto) 0.6 H Neut % (Auto) 80.4 H Lymph % (Auto) 12.8 L [place] % (Auto) 4.3 Eos % (Auto) 1.7 Baso % (Auto) 0.2 Lymph # (Auto) 1.7 [place] # (Auto) 0.6 Eos # (Auto) 0.2 Baso # (Auto) 0.0 Abs Immat Gran (auto) 0.08 H Absolute Neuts (auto) 10.8 H Absolute Nucleated RBC 0.000 Nucleated RBC % (auto) 0.0 Hold Purple Top SEE NOTE Anion Gap 10 L Estim Creat Clear Calc 48.4 Estimated GFR > 60 Random Glucose 77 Calcium 8.7 Magnesium 1.7 C-Reactive Protein 4.94 H Assessment and Plan (1) Clostridioides difficile infection: Status: Acute (2) Acute hypokalemia: Status: Acute Plan d4 72yo F with multiple recent admissions here for C. 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 C. difficile infection - vancomycin taper 09/10- , ID consulted: Vancomycin 125 qid for 10 days,Vancomycin 125 tid one week,Vancomycin 125 bid one week,Vancomycin daily one week and then Vancomycin 125 mg every ,,Wednesday indefinitely She may or may not be candidate for bezlotoxumab (Zinplava) depends on cardiologists opinions because not supposed to give with CHF. I can see as outpatient. She probably should receive po Vancomycin 125 mg qid while on antibiotics and for [address] depressions - no symptoms; Tn-I low; EKG changes have resolved; Cardiology consulted and attributed to hypokalemia; no further workup hypoK - repleted moderate protein-calorie malnutrition - supplements HTN hx stress cardiomyopathy - metoprolol succinate HLD - atorvastatin mood disorder - quetiapine, lorazepam, temazepam VTE ppx - LMWH dispo - STR recommended In my clinical judgment, the patient requires continued inpatient hospitalization for the following reason: SNF/STR placement Total time managing care of this patient today: 35 minutes. Quality Stroke Does the patient have a stroke diagnosis?: No VTE Prior VTE?: No VTE Risk Level:: Medical - moderate - high VTE Device Contraindication: Treatment Not Indicated VTE Drug Contraindication: N/A - Med Ordered
--- NOTE | 2023-09-14 13:27 | MHC.CM.PN ---
Patient is medically cleared for dc to SNF/STR today. Patient and her HCP/Miguelina are aware of and in agreement with the dc plan. Last IMM addressed on 09/12/2023. Patient will dc to [facility] today at 4PM, via [facility].
[2023-09-14] MEDS: Enoxaparin Sodium 40 MG/0.4 ML SYRINGE SUBCUT (13:51)
--- NOTE | 2023-09-14 15:05 | PM.DS ---
DS: Providers Provider Date of Service: 09/14/23 Date of admission: 09/11/23 13:42 Date of discharge: 09/14/23 Primary care physician: Aniyah Mcgregor MD Consults: 09/11/23 13:52 Consult to Infectious Diseases [place]ine [place] [facility] Reason for consultation: Recurrent C-Diff 09/12/23 10:02 Consult to Cardiology Routine Consulting Provider[place] [facility] [place] Reason for consultation: Anterolateral ST depressions. Hx takotsubo. No symptoms. DS: Diagnosis Discharge Diagnosis (1) Acute hypokalemia: Status: Acute (2) Recurrent Clostridioides difficile diarrhea: Status: Acute (3) Moderate protein-calorie malnutrition: Status: Acute (4) Sepsis: Status: Acute DS: Summary Hospital Course Hospital Course: From the history and physical by the admitting hospitalist, ONEL Parisi, 09/11/23: Pt is a 72-year-old female with a PMH significant for?protein calorie malnutrition, stress induced cardiomyopathy with recovered EF, Raynaud's, GERD, hx of C diff, and mood disorder who presents to the ED with?generalized weakness, diarrhea, and concerns for her ability to take care of herself at home. Patient lives alone in elderly housing and has had multiple admissions for similar symptoms to the hospital since July, most recently from 08/13-08/18 where patient tested positive for C diff and was treated with p.o. vancomycin for 10 days. Was evaluated by PT at that time who recommended STR, but patient declined both rehab and VNA services. 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 Patient was again hospitalized from 08/19-08/22 and treated for UTI with sepsis. Was discharged to STR this time and then returned home on 09/08. Pt has a HCP who helps around the house most days of the week but not on weekends. Also has [employer] services on Wed/Wed for showering and on Wednesday for cleaning around the house, thought these have not been restarted since discharge from rehab.. Today pt reports calling EMS numerous time for help. Initially called in the morning because she was a mess from an episode of diarrhea and needed to be cleaned up. After EMS left called again for help getting to the kitchen and cooking lunch. EMS did not respond to this request explaining this was not part of their normal services. Pt states she was able to make her way into the kitchen but then got stuck in her dining room chair and could not stand up. Called EMS again for assistance and they brought her to the ED for concerns she was unable to take care of herself at home. Pt is a rather poor historian. Complains of all over body pain and intermittent diarrhea that has been going on for a long time . Is not sure if has been worsening lately. States has not been eating or drinking much lately. No fever, chills, nausea, vomiting, abdominal pain. Denies chest pain/pressure, palpitations. No shortness of breath. In the ED pt was hypotensive as low as 83/45 an elevated HR of 93, vitals otherwise WNL. Labs were significant for leukocytosis of 12.9, potassium 2.5, lactic acid 2.4 with repeat 2.4. UA negative for UTI. Tested negative for influenza, RSV, COVID. CXR showed no acute disease, but showed linear opacity in base unchanged compared to recent CT. ?EKG demonstrated normal sinus rhythm with ST in anterior laterally. Pt was treated with IVF, ceftriaxone albumin, potassium chloride IV and p.o., and vancomycin p.o. Pt will be admitted to the hospital for treatment and further evaluation of recurrent C diff infection with sepsis and hypokalemia. 72yo F with multiple recent admissions here for C. 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 She was treated with vancomycin taper with resolution of diarrhea. Infectious Disease was consulted and recommended: Vancomycin 125 qid for 10 days,Vancomycin 125 tid one week,Vancomycin 125 bid one week,Vancomycin daily one week and then Vancomycin 125 mg every ,,Wednesday indefinitely She may or may not be candidate for bezlotoxumab (Zinplava) depends on cardiologists opinions because not supposed to give with CHF. I can see as outpatient. She probably should receive po Vancomycin 125 mg qid while on antibiotics and for 48 hours after . Hypokalemia was repleted. She had anterolateral ST depressions that resolved after repletion of potassium. 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 She should continue supplements for malnutrition. Due to weakness + balance issues, she was discharged to short-term rehabilitation at [facility]. Time Attestation Discharge Coordination Time (in mins): 45 Quality: Safe Use of Opioids Does Pt have an Active Cancer Diagnosis on the Problem List?: No Quality: Stroke Does the patient have a stroke diagnosis?: No Physical Exam Vital Signs: Vital Signs: Last Vital Signs Temp 98.7 F 09/14/23 07:33 Pulse 93 09/14/23 07:33 Resp 16 09/14/23 07:33 BP 127/70 09/14/23 07:33 Pulse Ox 96 09/14/23 07:33 O2 Del Method Room Air 09/14/23 07:33 BMI result Body Mass Index 15.2 Gen: frail, weak, pale HEENT: sclera anicteric, moist mucus membranes Neck: supple Lungs: clear to auscultation bilaterally Heart: regular rate and rhythm, no murmurs Abd: soft, non-tender, non-distended Ext: no edema Skin: warm/well-perfused Neuro: alert and oriented x3, no focal findings Psych: appropriate affect DS: Data Data Completed and Pending Completed studies during hospitalization [Text1]: Laboratory Results WBC 13.5 X10*3/uL (4.8-10.8) H 09/14/23 06:48 RBC 3.72 X10*6/uL (4.20-5.50) L 09/14/23 06:48 Hgb 10.5 g/dl (12.0-16.0) L 09/14/23 06:48 Hct 33.4 % (37.0-47.0) L 09/14/23 06:48 MCV 89.8 fL (80.0-98.0) 09/14/23 06:48 MCH 28.2 pg (27.0-33.0) 09/14/23 06:48 MCHC 31.4 g/dl (31.0-35.0) 09/14/23 06:48 RDW 17.2 % (11.0-16.0) H 09/14/23 06:48 Plt Count 381 X10*3/uL (160-400) 09/14/23 06:48 MPV 10.3 fL (9.4-12.3) 09/14/23 06:48 Immature Gran % (Auto) 0.6 % (0.0-0.4) H 09/14/23 06:48 Neut % (Auto) 80.4 % (45-73) H 09/14/23 06:48 Lymph % (Auto) 12.8 % (20-40) L 09/14/23 06:48 Lewis % (Auto) 4.3 % (2-11) 09/14/23 06:48 Eos % (Auto) 1.7 % (0-4) 09/14/23 06:48 Baso % (Auto) 0.2 % (0-2) 09/14/23 06:48 Lymph # (Auto) 1.7 X10*3/uL (1.2-4.9) 09/14/23 06:48 Lewis # (Auto) 0.6 X10*3/uL (0.1-1.2) 09/14/23 06:48 Eos # (Auto) 0.2 X10*3/uL (0.0-0.4) 09/14/23 06:48 Baso # (Auto) 0.0 X10*3/uL (0.0-0.2) 09/14/23 06:48 Abs Immat Gran (auto) 0.08 X10*3/uL (0.00-0.03) H 09/14/23 06:48 Absolute Neuts (auto) 10.8 x10*3/uL (2.0-8.3) H 09/14/23 06:48 Absolute Nucleated RBC 0.000 X10*3/uL (0.0-0.012) 09/14/23 06:48 Nucleated RBC % (auto) 0.0 /100WBC (0.0-0.2) 09/14/23 06:48 Neutrophils % (Manual) 67 % (45-73) 09/11/23 06:11 Band Neutrophils % 21 % (3-5) H 09/11/23 06:11 Lymphocytes % (Manual) 3 % (20-40) L 09/11/23 06:11 Monocytes % (Manual) 9 % (2-11) 09/11/23 06:11 Abs Neuts (Manual) 11.4 X10*3/uL (2.0-8.3) H 09/11/23 06:11 Lymphocytes # (Manual) 0.4 X10*3/uL (1.2-4.9) L 09/11/23 06:11 Monocytes # (Manual) 1.2 X10*3/uL (0.1-1.2) 09/11/23 06:11 Toxic Granulation PRESENT 09/11/23 06:11 Toxic Vacuolation PRESENT 09/11/23 06:11 Platelet Estimate NORMAL (NORMAL) 09/11/23 06:11 Large Platelets PRESENT 09/11/23 06:11 Plt Morphology Comment NOTED 09/11/23 06:11 RBC Morphology NOTED 09/11/23 06:11 Acanthocytes (Spur) 2+ (3-5) /OIF 09/11/23 06:11 Hold Purple Top SEE NOTE 09/14/23 06:48 PT 12.5 SEC (11.1-13.3) 09/11/23 06:11 INR 1.0 (0.9-1.1) 09/11/23 06:11 Sodium 139 mmol/L (135-145) 09/14/23 06:48 Potassium 3.7 mmol/L (3.3-5.1) 09/14/23 06:48 Chloride 118 mmol/L (96-108) H 09/14/23 06:48 Carbon Dioxide 15 mmol/L (22-29) L 09/14/23 06:48 Anion Gap 10 (12-20) L 09/14/23 06:48 BUN 12 mg/dL (9-16) 09/14/23 06:48 Creatinine 0.57 mg/dL (0.5-1.4) 09/14/23 06:48 Estim Creat Clear Calc 48.4 09/14/23 06:48 Estimated GFR > 60 09/14/23 06:48 Random Glucose 77 mg/dL (60-115) 09/14/23 06:48 Lactic Acid 2.4 mmol/L (0.5-2.0) H* 09/11/23 06:11 Lactic Acid F/U @ 2Hr 2.4 mmol/L (0.5-2.0) H* 09/11/23 08:59 Lactic Acid F/U @ 4Hr Cancelled 09/11/23 14:14 Calcium 8.7 mg/dL (8.4-10.2) 09/14/23 06:48 Magnesium 1.7 mg/dL (1.6-2.6) 09/14/23 06:48 Total Bilirubin 0.3 mg/dL (0.0-1.0) 09/11/23 08:06 Direct Bilirubin 0.1 mg/dL (0.0-0.5) 09/11/23 08:06 AST 9 U/L (5-31) 09/11/23 08:06 ALT 8 U/L (0-31) 09/11/23 08:06 Alkaline Phosphatase 99 U/L (39-117) 09/11/23 08:06 Troponin I High Sens 8.8 ng/L (<3.5-17.0) 09/12/23 05:33 C-Reactive Protein 4.94 mg/dL (< or = 0.50) H 09/14/23 06:48 Total Protein 5.7 g/dL (6.5-8.0) L 09/11/23 08:06 Albumin 3.2 g/dL (3.5-5.0) L 09/11/23 08:06 Lipase 19 U/L (8-78) 09/11/23 08:06 Urine Color Dark Yellow 09/11/23 07:54 Urine Appearance Clear 09/11/23 07:54 Urine pH 6.0 (5.0-9.0) 09/11/23 07:54 Ur Specific [place] 1.020 (1.005-1.025) 09/11/23 07:54 Urine Protein 100 (2+) mg/dL (Neg-Trace) H 09/11/23 07:54 Urine Glucose (UA) Negative mg/dL (Negative) 09/11/23 07:54 Urine Ketones Negative mg/dL (Negative) 09/11/23 07:54 Urine Blood Negative (Negative) 09/11/23 07:54 Urine Nitrite Negative (Negative) 09/11/23 07:54 Ur Leukocyte Esterase Trace (Negative) H 09/11/23 07:54 Urine RBC 0-2 /HPF (0-2) 09/11/23 07:54 Urine WBC 0-5 /HPF (0-5) 09/11/23 07:54 Ur Squamous Epith Cells 3-5 /HPF (0-2) 09/11/23 07:54 Urine Bacteria Trace (None Seen) 04/06/24 07:54 Hyaline Casts 3-5 /LPF (0-2) 09/11/23 07:54 C. difficile Tox B Gene POSITIVE (Negative) A* 09/11/23 10:33 C. difficile Toxin A&B Positive (Negative) A* 09/11/23 10:33 C. difficile Interpret SEE NOTE 09/11/23 10:33 Influenza Type A (PCR) NEGATIVE (Negative) 09/11/23 06:27 Influenza Type B (PCR) NEGATIVE (Negative) 09/11/23 06:27 RSV RNA Qual (PCR) NEGATIVE (Negative) 09/11/23 06:27 SARS-CoV-2 RNA (RT-PCR) NEGATIVE (Negative) 09/11/23 06:27 Impressions Chest X-Ray 09/11/23 07:24 IMPRESSION: 1. No acute disease. Linear opacity left base likely scarring and/or atelectasis unchanged compared to recent CT 2. Scoliosis. 3. Old granulomatous disease. Discharge Plan Discharge Anticipated Discharge Date/Time: 09/14/23 14:47 Patient Disposition: [facility] SNF Discharge Diagnosis: C. difficile infection hypokalemia malnutrition Referrals: Leah Elkins [Outside] - 1 Week Cheryl Edmond MD [Physician] - 1 Month Physician,Cindy J [Physician] - 1 Week Discharge Medications: New vancomycin 125 mg Capsule See Rx Instructions .ROUTE .COMPLEX Qty: 82 0RF Rx Instructions: 125 mg 4x a day for 7 days 125 mg 3x a day for 7 days 125 mg 2x a day for 7 days 125 mg daily for 7 days 125 mg every MWF indefinitely Continued (DME) foot inserts See Rx Instructions .Route .MEDSUPPLY Qty: 1 0RF Rx Instructions: As directed (DME) leno.stocking,knee,reg,smal Misc See Rx Instructions .Route Qty: 12 0RF Rx Instructions: As directed metoprolol succinate 25 mg tablet extended release 24 hr 25 mg PO DAILY Qty: 30 5RF atorvastatin 40 mg tablet 40 mg PO BEDTIME 90 Days Qty: 90 1RF pantoprazole 40 mg tablet,delayed release (DR/EC) 40 mg PO DAILY@0630 90 Days Qty: 90 1RF quetiapine 50 mg tablet 25 mg PO BEDTIME famotidine 20 mg tablet 20 mg PO BID@0900,1200 tramadol 50 mg Tablet 50 mg PO Q6H PRN (Reason: Pain) lorazepam 1 mg tablet 1 mg PO BID PRN (Reason: anxiety) 30 Days Qty: 60 5RF temazepam 15 mg capsule 15 mg PO BEDTIME PRN (Reason: sleep) 30 Days Qty: 30 5RF Discontinued loperamide [Imodium] 2 mg Capsule 2 mg PO Q6H PRN (Reason: Diarrhea) Discharge Orders: Discharge Order (Routine); Ordered 09/14/23 Ordered By: Jovi Gonzalez Diet: take Ensure 1 can 3x kam Activity on Discharge: As tolerated Stand Alone Forms: Patient Portal Discharge page Print Language: Cuban Care Plan Goals: recovery from C. difficile Health Concerns: C. difficile infection hypokalemia malnutrition Plan of Treatment: vancomycin as follows: 125 mg 4x a day for 7 days 125 mg 3x a day for 7 days 125 mg 2x a day for 7 days 125 mg daily for 7 days 125 mg every MWF indefinitely follow up with Dr Edmond from Infectious Disease in 1 month; consider bezlotoxumab infusion if ever on antibiotics, take vancomycin 125 mg 4x a day while on antibiotics and for 48 hours afterwards take supplements to boost protein intake Please follow up with your primary care doctor within 1 week of discharge from SNF. Return to the hospital if you experience recurrent or worsening symptoms. Assessment: See Discharge Summary. Anticipated length of stay at SNF less than 30d.
[2023-09-14] MEDS: traMADoL HCL 50 MG TABLET PO (15:19)
[2023-09-14 15:51] VITALS: BP 110/72; PULSE 80; RESP 16; TEMP 37; O2SAT 100
== END 2023-09-14 17:45 | disposition skilled nursing facility (03) | DRG 872 ==
LOC: HO.ED 08:04 → HO.EDOVER 14:04 → HO.IMC 15:11
PROVIDERS: Emergency Medicine; Admitting Provider Student in an Organized Health Care Education/Training Program; Emergency Provider Student in an Organized Health Care Education/Training Program; PCP Internal Medicine; Visit Provider Family Medicine
DX: A41.4 Sepsis due to anaerobes (principal); A04.71 Enterocolitis due to Clostridium difficile, recurrent; E44.0 Moderate protein-calorie malnutrition; Z68.1 Body mass index [BMI] 19.9 or less, adult; Z66 Do not resuscitate; E87.6 Hypokalemia; I73.00 Raynaud's syndrome without gangrene; F39 Unspecified mood [affective] disorder; I10 Essential (primary) hypertension; E78.5 Hyperlipidemia, unspecified; Z20.822 Contact with and (suspected) exposure to COVID-19; Z79.899 Other long term (current) drug therapy
CPT/HCPCS: 0241U; 36415; 71045; 80048; 80076; 81001; 81003; 83605; 83690; 83735; 84484; 85007; 85025; 85027; 85610; 86140; 87040; 87324; 87493; 93005; 97163; 99285; C1758; J0696; J1650; J3480; J7120; P9047

== ENCOUNTER → 2023-09-11 05:51 | Outpatient (BNV) | payer MEDICARE, SELFPAY | PROVIDERS: Emergency Provider Student in an Organized Health Care Education/Training Program; Visit Provider Internal Medicine Cardiovascular Disease | DX: R53.1 Weakness (principal) | CPT/HCPCS: 93010 ==

== ENCOUNTER 2023-09-11 13:42 | Outpatient (BNV) | payer MEDICARE, SELFPAY | END 2023-09-12 08:18 | PROVIDERS: Admitting Provider Student in an Organized Health Care Education/Training Program; Emergency Provider Student in an Organized Health Care Education/Training Program; Visit Provider Internal Medicine Cardiovascular Disease | DX: R94.31 Abnormal electrocardiogram [ECG] [EKG] (principal) | CPT/HCPCS: 93010 ==

== ENCOUNTER → 2023-09-11 13:42 | Outpatient (BNV) | payer MEDICARE, SELFPAY | PROVIDERS: Admitting Provider Student in an Organized Health Care Education/Training Program; Emergency Provider Student in an Organized Health Care Education/Training Program; Visit Provider Student in an Organized Health Care Education/Training Program | DX: A41.9 Sepsis, unspecified organism (principal); A04.71 Enterocolitis due to Clostridium difficile, recurrent; E87.6 Hypokalemia; E44.0 Moderate protein-calorie malnutrition | CPT/HCPCS: 99223; 99232; 99239 ==

== ENCOUNTER → 2023-09-11 13:42 | Outpatient (BNV) | payer MEDICARE, SELFPAY | PROVIDERS: Admitting Provider Student in an Organized Health Care Education/Training Program; Emergency Provider Student in an Organized Health Care Education/Training Program; Visit Provider Internal Medicine Cardiovascular Disease | DX: E87.6 Hypokalemia (principal); R94.31 Abnormal electrocardiogram [ECG] [EKG] | CPT/HCPCS: 99222 ==

== ENCOUNTER → 2023-09-11 13:42 | Outpatient (BNV) | payer MEDICARE, SELFPAY | PROVIDERS: Admitting Provider Student in an Organized Health Care Education/Training Program; Emergency Provider Student in an Organized Health Care Education/Training Program; Visit Provider Internal Medicine | DX: A49.8 Other bacterial infections of unspecified site (principal); A04.71 Enterocolitis due to Clostridium difficile, recurrent | CPT/HCPCS: 99222 ==

== ENCOUNTER 2023-10-11 10:07 | Inpatient (IN) | payer MEDICARE, MEDICAID, SELFPAY ==
--- NOTE | ~2023-10-11 | CT_ITS ---
EXAMINATION: CT HEAD W/O IV CONTRAST CT CERVICAL SPINE W/O IV CONTRAST CLINICAL INFORMATION: Trauma. Head injury. COMPARISON: 08/20/2023 TECHNIQUE: Head - Contiguous axial imaging of the head was performed from the skull base to the vertex without the administration of intravenous contrast, and axial images are reconstructed at 2 mm and 5 mm slice thickness. Cervical spine - A volumetric, helical CT acquisition of the cervical spine was obtained without contrast; in addition to the standard set of axial images, multiplanar reformatted images were provided in the coronal and sagittal imaging planes. This CT examination was performed using dose optimization techniques as appropriate, variously including the following: *Automated exposure control *Adjustment of mA and/or kV according to patient size (this includes techniques or standardized protocols for targeted exams where dose is matched to indication/reason for exam; i.e. extremities or head) *Use of iterative reconstruction technique DLP: 792 mGy-cm (total) FINDINGS: HEAD: No acute intracranial findings compared to 08/20/2023. Cabrera to white matter differentiation is preserved. No intracranial hemorrhage, major vascular territory infarction, focal mass effect or midline shift. Chronic parenchymal volume loss associated with commensurate prominence of ventricles and sulci. No hydrocephalus or extra-axial fluid collections. There are chronic small vessel ischemic changes within the supratentorial white matter. The calvarium is intact and the visualized paranasal sinuses, mastoid air cells and middle ear cavities are clear. Chronic degenerative joint space narrowing and mild osteophyte formation at the right temporomandibular joint. The orbits and globes are unremarkable. CERVICAL SPINE: The craniocervical junction is normal. The occipital condyles, dens and atlantodental articulation are intact. The cervical vertebra are normal in height. No acute fracture, prevertebral edema or soft tissue hematoma. Chronic multilevel disc degenerative change and facet arthropathy. Chronic 0.2 cm of degenerative anterolisthesis of C2 on C3. The disc degenerative changes and uncovertebral joint hypertrophy are predominantly noted at C3-C4, C4-C5 and C5-C6. The uncovertebral joint hypertrophy causes varying degrees of bilateral neural foraminal stenosis, including severe bilateral foraminal stenosis at C4-C5. Posterior disc-osteophyte complexes cause central spinal canal stenosis that is mild at C3-C4 and [id number] at C4-C5. No acute abnormalities in the visualized lung apices. Chronic opacities of scarring at apices. A few calcified granulomas are detected in the posterior right upper lobe. Thyroid gland is unremarkable. There is chronic gaseous distention of the partially visualized proximal esophagus. CT/CT cervical spine wo IV con IMPRESSION: * No intracranial hemorrhage or other acute intracranial pathology compared to 08/20/2023. * No fracture or traumatic subluxation in the degenerated cervical spine. * The partially visualized esophagus is chronically dilated.
--- NOTE | ~2023-10-11 | FL_ITS ---
EXAMINATION: XR FLUOROSCOPY WITH IMAGES CLINICAL INFORMATION: Right hip fracture. COMPARISON: Radiographs dated 10/11/2023. TECHNIQUE: Fluoroscopy Supervised By: Dr. Bigg Leos. Fluoroscopy Time: 0.8 minutes. Cumulative Dose: 9.23 mGy. DAP: 0.160 Gycm2. Images: 4. FINDINGS: The submitted images show application of intramedullary fixation lainey and compression screw transfixing a vertical intertrochanteric fracture of the proximal right femur. FL/FL guidance in OR IMPRESSION: Intraoperative fluoroscopic guidance is provided during ORIF of a right hip fracture. Please see the patient's Operative Report for full procedural details.
--- NOTE | ~2023-10-11 | XR_ITS ---
EXAMINATION: XR HIP, RIGHT CLINICAL INFORMATION: Fell down, right hip injury and pain COMPARISON: X-ray pelvis on 08/21/2022 TECHNIQUE: Two views of the right hip. FINDINGS: BONES: Vertical fracture through the subtrochanteric right femur with marked proximal displacement is seen. JOINTS: Alignment of hip joint is normal. SOFT TISSUE: Soft tissue is normal. No radiopaque foreign body or abnormal air collection is seen. XR/XR hip RT min 2V IMPRESSION: Interval development of vertical fracture subtrochanteric right femur with marked proximal displacement.
--- NOTE | ~2023-10-11 | XR_ITS ---
EXAMINATION: XR ABDOMEN KUB CLINICAL INDICATION: Abdominal distention COMPARISON: None available. TECHNIQUE: 2 AP supine views of the abdomen. FINDINGS: There is no dilatation of large or small bowel. Multiple air-filled loops of bowel are seen. 0.9 cm left mid renal calculus is seen. The bones are diffusely demineralized. The bones are diffusely demineralized. There is moderate to marked narrowing of the joint space of the left hip. Partial visualization of compression screw and lainey within the right femur. There is marked thoracolumbar scoliosis with multiple compression fractures seen in the visualized portions of the lower thoracic spine. XR/XR KUB IMPRESSION: 1. No evidence of obstruction. 2. Left renal calculus. 3. Multiple compression fractures of the visualized portions of the lower thoracic spine consistent with osteoporosis.
--- NOTE | ~2023-10-11 | CT_ITS ---
EXAMINATION: CT HEAD W/O IV CONTRAST CT CERVICAL SPINE W/O IV CONTRAST CLINICAL INFORMATION: Trauma. Head injury. COMPARISON: 08/20/2023 TECHNIQUE: Head - Contiguous axial imaging of the head was performed from the skull base to the vertex without the administration of intravenous contrast, and axial images are reconstructed at 2 mm and 5 mm slice thickness. Cervical spine - A volumetric, helical CT acquisition of the cervical spine was obtained without contrast; in addition to the standard set of axial images, multiplanar reformatted images were provided in the coronal and sagittal imaging planes. This CT examination was performed using dose optimization techniques as appropriate, variously including the following: *Automated exposure control *Adjustment of mA and/or kV according to patient size (this includes techniques or standardized protocols for targeted exams where dose is matched to indication/reason for exam; i.e. extremities or head) *Use of iterative reconstruction technique DLP: 792 mGy-cm (total) FINDINGS: HEAD: No acute intracranial findings compared to 08/20/2023. Cabrera to white matter differentiation is preserved. No intracranial hemorrhage, major vascular territory infarction, focal mass effect or midline shift. Chronic parenchymal volume loss associated with commensurate prominence of ventricles and sulci. No hydrocephalus or extra-axial fluid collections. There are chronic small vessel ischemic changes within the supratentorial white matter. The calvarium is intact and the visualized paranasal sinuses, mastoid air cells and middle ear cavities are clear. Chronic degenerative joint space narrowing and mild osteophyte formation at the right temporomandibular joint. The orbits and globes are unremarkable. CERVICAL SPINE: The craniocervical junction is normal. The occipital condyles, dens and atlantodental articulation are intact. The cervical vertebra are normal in height. No acute fracture, prevertebral edema or soft tissue hematoma. Chronic multilevel disc degenerative change and facet arthropathy. Chronic 0.2 cm of degenerative anterolisthesis of C2 on C3. The disc degenerative changes and uncovertebral joint hypertrophy are predominantly noted at C3-C4, C4-C5 and C5-C6. The uncovertebral joint hypertrophy causes varying degrees of bilateral neural foraminal stenosis, including severe bilateral foraminal stenosis at C4-C5. Posterior disc-osteophyte complexes cause central spinal canal stenosis that is mild at C3-C4 and [id number] at C4-C5. No acute abnormalities in the visualized lung apices. Chronic opacities of scarring at apices. A few calcified granulomas are detected in the posterior right upper lobe. Thyroid gland is unremarkable. There is chronic gaseous distention of the partially visualized proximal esophagus. CT/CT head/brain wo IV con IMPRESSION: * No intracranial hemorrhage or other acute intracranial pathology compared to 08/20/2023. * No fracture or traumatic subluxation in the degenerated cervical spine. * The partially visualized esophagus is chronically dilated.
--- NOTE | ~2023-10-11 | XR_ITS ---
EXAMINATION: XR CHEST CLINICAL INFORMATION: Fall COMPARISON: Previous chest x-ray September 2023 TECHNIQUE: Frontal view of the chest was obtained. FINDINGS: The cardiac and mediastinal contours are stable. There is scarring or chronic subsegmental atelectasis at the left lung base similar to prior exam. Lungs are otherwise clear. No pleural effusion or pneumothorax. Thoracolumbar scoliosis and degenerative changes of the spine. No fracture seen. XR/XR chest 1V IMPRESSION: No evidence for acute disease in the chest.
[2023-10-11 10:19] VITALS: BP 142/73; BP 148/88; PULSE 83; PULSE 94; RESP 16; TEMP 36.4; O2SAT 97; O2SAT 98; BMI 16.9
--- NOTE | 2023-10-11 10:37 | ECG_ITS ---
Test Reason : FALL Blood Pressure : / mmHG Vent. Rate : 076 BPM Atrial Rate : 076 BPM P-R Int : 128 ms QRS Dur : 086 ms QT Int : 424 ms P-R-T Axes : 070 027 019 degrees QTc Int : 477 ms Normal sinus rhythm Nonspecific ST and T wave abnormality Prolonged QT Abnormal ECG When compared with ECG of 12-SEP-2023 08:18, Nonspecific T wave abnormality, improved in Lateral leads Referred By: Jesse Carney Electronically Signed By:Alvino Joseph
--- NOTE | 2023-10-11 10:38 | ED_ITS ---
HPI - General Adult General Chief complaint: Fall Stated complaint: FALL,BILAT LEG PAIN,+COLLAR,-THIN,+HS PER EMS Time Seen by Provider: 10/11/23 10:22 History of Present Illness HPI narrative: The patient is a 72-year-old woman who lives by herself. She apparently sustained a fall when she was in her kitchen at around 05:00 this morning. She says that when she fell she struck her head but only slightly. She also injured her right hip. She used a medic alert bracelet to someone an ambulance and to communicate with her healthcare proxy. When the ambulance crew arrived she asked for a lift assist and she was placed into her bed. She did not want to come to the hospital. She wanted to wait and see how she felt. A few hours later she wanted to go out and she called her MEDICAL RESEARCH TECH. Her MEDICAL RESEARCH TECH came over and found the patient dressed but essentially unable to walk because of pain in the right hip area. At that point the patient agreed to come to the hospital. An ambulance was called and she was brought to the hospital. The patient apparently was recently treated for C diff diarrhea. She had been hospitalized at this hospital from September 10 through September 13. The patient had had a 1st episode of C diff in August and was treated for 10 days with oral vancomycin. At her hospitalization earlier this month she was treated for a recurrence of her C diff with the following plan for a vancomycin taper. She was supposed to take vancomycin 125 mg q.i.d. for 10 days, vancomycin 125 mg t.i.d. for 1 week, vancomycin 125 mg b.i.d. for 1 week, vancomycin daily for 1 week, and then vancomycin 125 mg every Wednesday and Wednesday indefinitely. After her last hospitalization in early September she went to a rehab facility. She has been home for about a week. She says that she did not receive any vancomycin prescriptions when she left the rehab facility and has not had any vancomycin during the last week. Related Data Home Medications ?Medication ?Instructions ?Recorded ?Confirmed quetiapine 50 mg tablet 25 mg PO BEDTIME 07/16/23 09/11/23 famotidine 20 mg tablet 20 mg PO BID@0900,1200 08/14/23 09/11/23 tramadol 50 mg tablet 50 mg PO Q6H PRN Pain 09/11/23 09/11/23 Previous Rx's ?Medication ?Instructions ?Recorded foot inserts #1 ea 12/04/21 leno.stocking,knee,reg,smal #12 ea 10/14/22 atorvastatin 40 mg tablet 40 mg PO BEDTIME 90 days #90 tabs 03/09/23 lorazepam 1 mg tablet 1 mg PO BID PRN anxiety 30 days 03/09/23 #60 tabs metoprolol succinate 25 mg 25 mg PO DAILY #30 tabs 03/09/23 tablet,extended release 24 hr temazepam 15 mg capsule 15 mg PO BEDTIME PRN sleep 30 days 03/09/23 #30 caps pantoprazole 40 mg tablet,delayed 40 mg PO DAILY@0630 90 days #90 09/05/23 release tabs vancomycin 125 mg capsule See Rx Instructions .Route 09/14/23 .COMPLEX #82 caps Allergies Allergy/AdvReac Type Severity Reaction Status Date / Time No Known Allergies Allergy Verified 10/11/23 10:21 Review of Systems 2 Review of Systems: Yes all other systems are reviewed and are negative [facility] Past Medical History Medical History (Updated 10/11/23 @ 12:21 by Jesse Carney MD) Recurrent Clostridioides difficile diarrhea External hemorrhoids Epidermal inclusion cyst White coat syndrome with high blood pressure but without hypertension Dry eyes Hyponatremia Hypercalcemia Diarrhea Renal calculi Constipation by delayed colonic transit GERD (gastroesophageal reflux disease) UTI (urinary tract infection) Villous adenoma of colon Insomnia Raynauds disease Anxiety Surgical History History of bronchoscopy History of tonsillectomy Family History Family History Father Medical history unknown Mother Dementia Alzheimers disease Mental health disorder Brother Leukemia Sister Medical history unknown Social History Social History Household Members: None Household Members Other:: residential Housing: Assisted Living Facility Housing Other:: residential Do you presently have visiting nurse or 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) Alcohol intake: former Patient Tobacco Use Status: Former Tobacco user Tobacco use type: Cigarette Smoked in Last 30 Days: No e-Cigarette/Vaping Use: Never Used Second Hand Smoke Exposure: No Use of substances other than those prescribed or required for medical reasons: No Advance Directives: Yes Advance Directives on File: Yes Advance Directives Date on File: 11/23/22 Do you have a plan to hurt others: No Plan service: No Current occupational status: retired Cognitive needs: No Hearing needs: No Vision needs: Yes Physical Exam ED Vital Signs: Vital Signs - 24 hr 10/11/23 10:19 Temperature 97.5 F Pulse Rate 83 Respiratory Rate 16 Blood Pressure 142/73 H Pulse Oximetry 98 Oxygen Delivery Method Room Air BMI result Body Mass Index 16.9 Const Other: The patient is awake and alert. She is a frail elderly woman. HENMT Other: No signs of trauma to the head or the face. Mucous membranes moist. Face is symmetrical. Eyes Other: Pupils are round equal, conjunctivae are clear, extraocular movements intact Neck Other: No JVD. Diffuse mild posterior C-spine tenderness. Resp Effort & Inspection: normal respiratory effort Auscultation: clear to auscultation bilaterally Cardio Rate: regular rate Rhythm: regular rhythm Heart sounds: S1 normal heart sound present and S2 normal heart sound present GI Other: Abdomen is soft and nontender Skin Other: Skin is intact. Skin is dry and unremarkable. Neuro Other: The patient is awake and alert with a normal mental status. Face is symmetrical. Speech is clear. She moves her upper extremities normally and symmetrically. She can move her left leg perfectly well. She can not move her right leg because of pain at the right hip. Extrem Other: The right leg is shortened and internally rotated. She has a great deal of pain with any palpation near the right hip. Medications Administered Discontinued Medications Generic Name Dose Route Start Last Admin Trade Name Theresa PRN Reason Stop Dose Admin Morphine Sulfate 4 mg 10/11/23 11:50 10/11/23 13:16 Morphine Sulfate 4 Mg/Ml Cartridge IVPUSH 10/11/23 11:51 4 mg ONCE ONE Administration Protocol Medical Decision Making Medical Decision Making MDM Narrative: The patient is a pleasant 72-year-old woman who fell in her kitchen this morning. She at 1st refused transport to the hospital and had a lift assist by paramedics. Later she was unable to walk and an ambulance brought her to the hospital. She has an intertrochanteric fracture of the right hip. This was discussed with Orthopedics. The patient will be admitted to the hospitalist service. She seems medically stable for admission to the medical floor. Another issue is whether she might have ongoing C diff as she recently had a course of prolonged vancomycin interrupted. Lab Data 10/11/23 12:17 10/11/23 12:17 Labs: Lab Results 10/11/23 Range/Units 12:17 WBC 12.9 H (4.8-10.8) X10*3/uL RBC 3.63 L (4.20-5.50) X10*6/uL Hgb 10.3 L (12.0-16.0) g/dl Hct 32.2 L (37.0-47.0) % MCV 88.7 (80.0-98.0) fL MCH 28.4 (27.0-33.0) pg MCHC 32.0 (31.0-35.0) g/dl RDW 15.6 (11.0-16.0) % Plt Count 370 (160-400) X10*3/uL MPV 9.0 L (9.4-12.3) fL Immature Gran % (Auto) 0.4 (0.0-0.4) % Neut % (Auto) 87.2 H (45-73) % Lymph % (Auto) 7.4 L (20-40) % Cotton % (Auto) 4.5 (2-11) % Eos % (Auto) 0.1 (0-4) % Baso % (Auto) 0.4 (0-2) % Lymph # (Auto) 1.0 L (1.2-4.9) X10*3/uL Cotton # (Auto) 0.6 (0.1-1.2) X10*3/uL Eos # (Auto) 0.0 (0.0-0.4) X10*3/uL Baso # (Auto) 0.1 (0.0-0.2) X10*3/uL Abs Immat Gran (auto) 0.05 H (0.00-0.03) X10*3/uL Absolute Neuts (auto) 11.2 H (2.0-8.3) x10*3/uL Absolute Nucleated RBC 0.000 (0.0-0.012) X10*3/uL Nucleated RBC % (auto) 0.0 (0.0-0.2) /100WBC Sodium 142 (135-145) mmol/L Potassium 3.7 (3.3-5.1) mmol/L Chloride 113 H (96-108) mmol/L Carbon Dioxide 18 L (22-29) mmol/L Anion Gap 15 (12-20) BUN 23 H (9-16) mg/dL Creatinine 0.82 (0.5-1.4) mg/dL Estim Creat Clear Calc 37.2 Estimated GFR > 60 Random Glucose 140 H (60-115) mg/dL Calcium 10.0 D (8.4-10.2) mg/dL Magnesium 1.9 (1.6-2.6) mg/dL Total Bilirubin 0.3 (0.0-1.0) mg/dL Direct Bilirubin 0.1 (0.0-0.5) mg/dL AST 15 (5-31) U/L ALT 9 (0-31) U/L Alkaline Phosphatase 234 H (39-117) U/L Total Protein 6.4 L (6.5-8.0) g/dL Albumin 3.7 (3.5-5.0) g/dL Discharge Plan Discharge Clinical Impression: Closed fracture of right hip Patient Disposition: Admitted As Inpatient
[2023-10-11 12:20] LABS: MANUAL DIFF FLAG NO
[2023-10-11 12:24] LABS: Basophils Absolute Auto 0.1 X10*3/uL (0.0-0.2); Basophils Percent Auto 0.4 % (0-2); Eosinophils Percent Auto 0.1 % (0-4); Hematocrit 32.2 % (37.0-47.0); Hemoglobin 10.3 g/dl (12.0-16.0); Imm Gran Abs Auto 0.05 X10*3/uL (0.00-0.03); Imm Gran Pct Auto 0.4 % (0.0-0.4); Lymphocytes Percent Auto 7.4 % (20-40); Mean Corpuscular Hemoglobin 28.4 pg (27.0-33.0); Mean Corpuscular Volume 88.7 fL (80.0-98.0); Monocytes Absolute Auto 0.6 X10*3/uL (0.1-1.2); Monocytes Percent Auto 4.5 % (2-11); Neutrophils Absolute Auto 11.2 x10*3/uL (2.0-8.3); Neutrophils Percent Auto 87.2 % (45-73); Platelet Count 370 X10*3/uL (160-400); Red Blood Count 3.63 X10*6/uL (4.20-5.50); Red Cell Distribution Width 15.6 % (11.0-16.0); White Blood Count 12.9 X10*3/uL (4.8-10.8)
--- NOTE | 2023-10-11 12:35 | PM.IMHP ---
History of Present Illness Date of Service: 10/11/23 Attending physician on admission: Karla Sr Chief Complaint: r hip pain 72yo F who lives at home alone ambulates with a walker at baseline with malnutrition, stress induced cardiomyopathy with reduced EF, Raynaud's phenomenon, GERD, mood disorder, recurrent cdiff with multiple admission presented to the ED after sustaining a mechanical fall at home [id number] this morning. She did strike head lightly but no loc. not on blood thinners. No prodrome leading up to fall including vision changes, lightheadedness, palpitations, chest pain. NO weakness/paresthesias. Reports landing on the R hip. Was able to get up and ambulate but significant pain. EMS was called but at that time pt did not want to transfer to hospital. However, upon master merchandiser arrival, pt was unable to walk due to pain and again called ems. She was recently discharged from our facility on 09/13 to [facility] due to weakness r/t recurrent cdiff. Per ID report during admission, pt was advised to take po vanco taper and to continue on po vanco 125mg every MWF indefinitely but pt reports [facility] did not feel pt had cdiff and did not continue the medication and she has not been taking the medication since arriving home. She continues to have multiple episodes of loose stool with fecal incontinence. No abd pain, nausea, vomiting. She is malnourished with poor appetite at baseline, but has been eating and drinking per usual. On arrival VSS. There is a leukocytosis of 12.9. No acute anemia. Renal function baseline, electrolyte levels normal except for chloride 113, CO2 18. CT of the head negative for acute intracranial abnormality. Cervical spine CT negative for any acute osseous abnormality. CXR unremarkable. X-ray of the right hip shows interval development of vertical fracture subtrochanteric right femur with marked proximal displacement. Ortho surgery recommending medical admission for management of displaced R hip fracture. Review of Systems Review of Systems: General: No fevers, malaise, unintentional weight loss HEENT: No blurred vision, diplopia. No sore throat, nasal congestion, rhinorrhea, sinus pain, ear pain Cardiovascular: No chest pain, palpitations, or leg edema Respiratory: No shortness of breath, wheezing, cough GI: +loose stool. No abdominal pain, nausea, vomiting, constipation, melena, hematochezia : No dysuria, hematuria, increased urinary frequency, decreased urinary output MSK: No myalgia, back pain. +fall, +R hip pain Neuro: No headaches, weakness, paresthesias Skin: No rashes or lesions [facility], [facility] Medical History Recurrent Clostridioides difficile diarrhea External hemorrhoids Epidermal inclusion cyst White coat syndrome with high blood pressure but without hypertension Dry eyes Hyponatremia Hypercalcemia Diarrhea Renal calculi Constipation by delayed colonic transit GERD (gastroesophageal reflux disease) UTI (urinary tract infection) Villous adenoma of colon Insomnia Raynauds disease Anxiety Family History Father Medical history unknown Mother Dementia Alzheimers disease Mental health disorder Brother Leukemia Sister Medical history unknown Surgical History History of bronchoscopy History of tonsillectomy Social History Household Members: None Household Members Other:: [facility] Housing: Apartment Housing Other:: [facility] prior to admission. Do you presently have visiting nurse or other home services: No Alcohol intake: former Patient Tobacco Use Status: Former Tobacco user Tobacco use type: Cigarette Smoked in Last 30 Days: No e-Cigarette/Vaping Use: Never Used Second Hand Smoke Exposure: No Use of substances other than those prescribed or required for medical reasons: No Currently Displaying Signs/Symptoms of Drug Intoxication Withdrawal: No Have you been hit, kicked, punched, or otherwise hurt by someone within the past year? If so, by whom?: No Do you feel safe in your current relationship?: No Current Relationship Is there a partner from a previous relationship who is making you feel unsafe now?: No Are you made to feel afraid or neglected: No Spiritual Healthcare Practices: Identifies as spiritual. Are you DNR?: Yes Advance Directives: Yes Advance Directives on File: Yes Advance Directives Date on File: 11/23/22 Do you have a plan to hurt others: No Plan Recently lost weight without trying: No Eating poorly because of decreased appetite: No Nutrition Risks: No Nutritional Risk Patient : No : No Poor oral hygiene: No service: No Current occupational status: retired Cognitive needs: No Hearing needs: No Vision needs: Yes Meds Allergies Allergy/AdvReac Type Severity Reaction Status Date / Time No Known Allergies Allergy Verified 10/11/23 10:21 Home Medications ?Medication ?Instructions ?Recorded ?Confirmed ?Last Taken ?Type quetiapine 50 mg tablet 25 mg PO BEDTIME 07/16/23 10/11/23 10/10/23 History famotidine 20 mg tablet 20 mg PO BID@0900,1200 08/14/23 10/11/23 10/11/23 History tramadol 50 mg tablet 50 mg PO Q6H PRN Pain 09/11/23 10/11/23 Unknown History quetiapine 50 mg tablet 25 mg PO BEDTIME PRN Insomnia 10/11/23 10/11/23 Unknown History Physical Exam Vital Signs and Narrative: Vital Signs: Last Vital Signs Temp 97.5 F 10/11/23 10:19 Pulse 83 10/11/23 10:19 Resp 16 10/11/23 10:19 BP 142/73 H 10/11/23 10:19 Pulse Ox 98 10/11/23 10:19 O2 Del Method Room Air 10/11/23 10:19 BMI result Body Mass Index 16.9 Constitutional - Awake and Alert, No apparent distress Eyes - PERRLA, EOMI Cardiovascular - S1S2, RRR, No edema Respiratory - Normal lung expansion, Normal respiratory effort, No respiratory distress, CTA bilaterally Gastrointestinal - NT but softly distended, +BS; No rebound or guarding Extremities - no calf tenderness bilaterally, no swelling Musculoskeletal - RLE shortened with internal rotation and ttp over R hip Skin - Warm/Dry Neurological - Alert & oriented x3, sensation in tact Psychological - Appropriate affect Results Labs 10/12/23 05:26 10/12/23 05:26 Labs: Laboratory Results - last 24 hr 10/11/23 12:17 MCV 88.7 MCH 28.4 MCHC 32.0 RDW 15.6 Plt Count 370 MPV 9.0 L Immature Gran % (Auto) 0.4 Neut % (Auto) 87.2 H Lymph % (Auto) 7.4 L Hardin % (Auto) 4.5 Eos % (Auto) 0.1 Baso % (Auto) 0.4 Lymph # (Auto) 1.0 L Hardin # (Auto) 0.6 Eos # (Auto) 0.0 Baso # (Auto) 0.1 Abs Immat Gran (auto) 0.05 H Absolute Neuts (auto) 11.2 H Absolute Nucleated RBC 0.000 Nucleated RBC % (auto) 0.0 Imaging Radiologist's Impressions: Impressions Cervical Spine CT 10/11/23 11:04 IMPRESSION: * No intracranial hemorrhage or other acute intracranial pathology compared to 08/20/2023. * No fracture or traumatic subluxation in the degenerated cervical spine. * The partially visualized esophagus is chronically dilated. Head CT 10/11/23 11:04 IMPRESSION: * No intracranial hemorrhage or other acute intracranial pathology compared to 08/20/2023. * No fracture or traumatic subluxation in the degenerated cervical spine. * The partially visualized esophagus is chronically dilated. Assessment and Plan (1) Closed fracture of right hip: Status: Acute Plan 72yo F who lives at home alone ambulates with a walker at baseline with malnutrition, stress induced cardiomyopathy with reduced EF, Raynaud's phenomenon, GERD, mood disorder, recurrent cdiff with multiple admission admitted for management of R hip fracture #Acute R hip fracture -XR R hip shows interval development of vertical fracture subtrochanteric R femur with marked proximal displacement. Per ortho, needs xr hip/pelvis -ortho consult -pain management prn -npo after midnight #Recurrent CDiff -Per ID, when discharged 09/13 recommending po vanco taper and to continue po vanco 125mg MWF but SNF discontinued med per pt -Discussed with ID, cdiff PCR pending given ongoing symptoms. Resume po vanco 125mg qid -id consult #Acute leukocytosis -likely multifactorial r/t ongoing cdiff infection and reactive due to fracture #chronic microcytic anemia -h/h baseline and above transfusion threshold #HTn -continue bb #HLD -statin #moderate protein calorie malnutrition -has been followed by nutrition on prior admission -magic cup tid with low fiber, lactose controlled diet dvt prophylaxis- scps dnr/dni pt requires inpt stay at [facility] 2 midnights due to r hip fracture requiring except consultation and urgent/emergent surgical repair Quality Stroke Does the patient have a stroke diagnosis?: No VTE Prior VTE?: No VTE Risk Level:: Medical - moderate - high VTE Device Contraindication: N/A - Device Ordered VTE Drug Contraindication: Treatment Not Indicated
[2023-10-11 12:38] LABS: Alanine Aminotransferase 9 U/L (0-31); Albumin Level 3.7 g/dL (3.5-5.0); Alkaline Phosphatase 234 U/L (39-117); Anion Gap 15 (12-20); Aspartate Amino Transferase 15 U/L (5-31); Bilirubin Direct 0.1 mg/dL (0.0-0.5); Bilirubin Total 0.3 mg/dL (0.0-1.0); Blood Urea Nitrogen 23 mg/dL (9-16); Carbon Dioxide 18 mmol/L (22-29); Chloride 113 mmol/L (96-108); Creatinine Clr Calc Pharmacy 37.2; Estimated Glomerular Filt Rate > 60; Glucose Random 140 mg/dL (60-115); Magnesium 1.9 mg/dL (1.6-2.6); Potassium 3.7 mmol/L (3.3-5.1); Sodium 142 mmol/L (135-145); Total Protein 6.4 g/dL (6.5-8.0)
--- NOTE | 2023-10-11 12:38 | PM.CNOR ---
History of Present Illness HPI Consult date: 10/11/23 <Tej Holbrook PA-C Last Filed: 10/11/23 12:44> Chief complaint: R hip fracture, recurrent cdiff <Tej Holbrook PA-C Filed: 10/11/23 12:44> Narrative: 72 yo female seen in the ED for right hip pain s/p fall prior to arrival. She is accompanied by her TAIL SAWYER/HCP Miguelina. Miguelina states the patient was ambulating with her walker when her walker got away from her, she lost her balance and she fell. She was able to press her life alert button, EMS was called and she was transported to the ED. Xrays of the right hip show a right femoral intertrochaniteric fx. She will be admitted to the medical service and orthopedics will follow for surgical planning. She lives alone and uses a walker. She has her TAIL SAWYER to help with daily activities. <Tej Holbrook PA-C Last Filed: 10/11/23 12:44> Review of Systems Review of Systems: Yes all other systems are reviewed and are negative <Tej Holbrook PA-C Last Filed: 10/11/23 12:44> FOR[facility]LY [facility] Past Medical History Medical History: Medical History (Updated 10/11/23 @ 12:21 by Jesse Carney MD) Recurrent Clostridioides difficile diarrhea External hemorrhoids Epidermal inclusion cyst White coat syndrome with high blood pressure but without hypertension Dry eyes Hyponatremia Hypercalcemia Diarrhea Renal calculi Constipation by delayed colonic transit GERD (gastroesophageal reflux disease) UTI (urinary tract infection) Villous adenoma of colon Insomnia Raynauds disease Anxiety <Tej Holbrook PA-C Last Filed: 10/11/23 12:44> Family History Family History: Family History Father Medical history unknown Mother Dementia Alzheimers disease Mental health disorder Brother Leukemia Sister Medical history unknown <BARRINGTON Merrill Last Filed: 10/11/23 12:44> Surgical History Surgical History: Surgical History History of bronchoscopy History of tonsillectomy <Tej Holbrook PA-C - Last Filed: 10/11/23 12:44> Social History Social History: Social History Household Members: None Household Members Other:: jail Housing: Apartment Housing Other:: [facility] prior to admission. Do you presently have visiting nurse or other home services: No Alcohol intake: former Patient Tobacco Use Status: Former Tobacco user Tobacco use type: Cigarette Smoked in Last 30 Days: No e-Cigarette/Vaping Use: Never Used Second Hand Smoke Exposure: No Use of substances other than those prescribed or required for medical reasons: No Currently Displaying Signs/Symptoms of Drug Intoxication Withdrawal: No Have you been hit, kicked, punched, or otherwise hurt by someone within the past year? If so, by whom?: No Do you feel safe in your current relationship?: No Current Relationship Is there a partner from a previous relationship who is making you feel unsafe now?: No Are you made to feel afraid or neglected: No Spiritual Healthcare Practices: Identifies as spiritual. Are you DNR?: Yes Advance Directives: Yes Advance Directives on File: Yes Advance Directives Date on File: 11/23/22 Do you have a plan to hurt others: No Plan Recently lost weight without trying: No Eating poorly because of decreased appetite: No Nutrition Risks: No Nutritional Risk Patient : No : No Poor oral hygiene: No service: No Current occupational status: retired Cognitive needs: No Hearing needs: No Vision needs: Yes <Tej Holbrook PA-C - Last Filed: 10/11/23 12:44> Meds Allergies/Adverse reactions: Allergies Allergy/AdvReac Type Severity Reaction Status Date / Time No Known Allergies Allergy Verified 10/11/23 10:21 <Tej Holbrook PA-C - Last Filed: 10/11/23 12:44> Home medications: Home Medications ?Medication ?Instructions ?Recorded ?Confirmed ?Last Taken ?Type quetiapine 50 mg tablet 25 mg PO BEDTIME 07/16/23 10/11/23 10/10/23 History famotidine 20 mg tablet 20 mg PO BID@0900,1200 08/14/23 10/11/23 10/11/23 History tramadol 50 mg tablet 50 mg PO Q6H PRN Pain 09/11/23 10/11/23 Unknown History quetiapine 50 mg tablet 25 mg PO BEDTIME PRN Insomnia 10/11/23 10/11/23 Unknown History <Tej Holbrook PA-C Last Filed: 10/11/23 12:44> Physical Exam Vital Signs: Vital Signs: Last Vital Signs Temp 97.5 F 10/11/23 10:19 Pulse 83 10/11/23 10:19 Resp 16 10/11/23 10:19 BP 142/73 H 10/11/23 10:19 Pulse Ox 98 10/11/23 10:19 O2 Del Method Room Air 10/11/23 10:19 BMI result Body Mass Index 16.9 <Tej Holbrook PA-C Last Filed: 10/11/23 12:44> Const: General: cooperative, healthy appearing, comfortable, no acute distress, well developed and alert <Tej Holbrook PA-C Last Filed: 10/11/23 12:44> Orientation/consciousness: patient oriented x3 <Tej Holbrook PA-C Last Filed: 10/11/23 12:44> HEENT: Head: Yes normal to inspection, Yes normocephalic and Yes atraumatic <Tej Holbrook PA-C Last Filed: 10/11/23 12:44> Eyes: General: appearance normal, both eyes and all related structures <Tej Holbrook PA-C - Last Filed: 10/11/23 12:44> Neck: Neck: Yes normal visual inspection and Yes no lymphadenopathy <Tej Holbrook PA-C Last Filed: 10/11/23 12:44> Resp: Effort & Inspection: normal respiratory effort and able to speak in complete sentences <Tej Holbrook PA-C - Last Filed: 10/11/23 12:44> Cardio: Rate: regular rate <Tej Holbrook PA-C Last Filed: 10/11/23 12:44> Peripheral pulses: Peripheral pulses 2+ throughout <Tej Holbrook PA-C - Last Filed: 10/11/23 12:44> GI: Inspection: Yes normal to inspection <Tej Holbrook PA-C - Last Filed: 10/11/23 12:44> Palpation (GI): Soft to palpation <Tej Holbrook PA-C - Last Filed: 10/11/23 12:44> Skin: General skin exam: no rashes or lesions noted <Tej Holbrook PA-C - Last Filed: 10/11/23 12:44> Neuro: General: patient oriented x3 <Tej Holbrook PA-C - Last Filed: 10/11/23 12:44> Extrem: Other: Right hip shortened and ER. She has pain with log roll. No abraisons. Pulses intact. <Tej Holbrook PA-C - Last Filed: 10/11/23 12:44> Psych: Appearance: grossly normal <Tej Holbrook PA-C - Last Filed: 10/11/23 12:44> Mental Status: mental status grossly normal <Tej Holbrook PA-C - Last Filed: 10/11/23 12:44> Results Labs Result Diagrams: 10/12/23 05:26 10/12/23 05:26 <Tej Holbrook PA-C - Last Filed: 10/11/23 12:44> Labs: Abnormal lab results 10/11/23 Range/Units 12:17 WBC 12.9 H (4.8-10.8) X10*3/uL RBC 3.63 L (4.20-5.50) X10*6/uL Hgb 10.3 L (12.0-16.0) g/dl Hct 32.2 L (37.0-47.0) % MPV 9.0 L (9.4-12.3) fL Neut % (Auto) 87.2 H (45-73) % Lymph % (Auto) 7.4 L (20-40) % Lymph # (Auto) 1.0 L (1.2-4.9) X10*3/uL Abs Immat Gran (auto) 0.05 H (0.00-0.03) X10*3/uL Absolute Neuts (auto) 11.2 H (2.0-8.3) x10*3/uL H & H 10/11/23 Range/Units 12:17 Hgb 10.3 L (12.0-16.0) g/dl Hct 32.2 L (37.0-47.0) % All other labs normal. <Tej Holbrook PA-C - Last Filed: 10/11/23 12:44> Assessment and Plan (1) Closed fracture of right hip: Status: Acute <Tej Holbrook PA-C - Last Filed: 10/11/23 12:44> I discussed the case with Dr Leos and explained the extent of the injury to the patient and her TAIL SAWYER/HCP, Miguelina and options available which include surgical intervention. I explained the procedure in detail along with the length of recovery and rehab course. I explained the risk, benefits and alternatives. Risk including, but not limited to infection, blood clots, bleeding, non union or malunion and nerve/tissue damage to surrounding areas. I answered all their questions and with their understanding they have consented to move forward with Operative Fixation of the right hip . The patient will be T&S, med clearance obtained and NPO after midnight. <Tej Holbrook PA-C - Last Filed: 10/11/23 12:44> This is a 72 yo F with a right hip fractyure. I explained the extent of the injury to the patient and her TAIL SAWYER/HCP, Miguelina and options available which include surgical intervention. I explained the procedure in detail along with the length of recovery and rehab course. I explained the risk, benefits and alternatives. Risk including, but not limited to infection, blood clots, bleeding, non union or malunion and nerve/tissue damage to surrounding areas. I answered all their questions and with their understanding they have consented to move forward with Operative Fixation of the right hip . The patient will be T&S, med clearance obtained and NPO after midnight. <Bigg Leos MD - Last Filed: 10/12/23 13:44> Procedures Date of Service Date of Service: 10/11/23 <Tej Holbrook PA-C - Last Filed: 10/11/23 12:44> 10/12/23 <Bigg Leos MD - Last Filed: 10/12/23 13:44>
[2023-10-11] MEDS: Morphine Sulfate 4 MG/ML CARTRIDGE IVPUSH (13:16)
--- NOTE | 2023-10-11 13:29 | PHA.MEDREC ---
Pharmacy Consult ? Medication Reconciliation Pharmacy has completed the medication reconciliation. Patient reported medications. Shahida Drummond, ZachD
[2023-10-11 13:37] VITALS: BP 150/78; PULSE 76; RESP 15; TEMP 36.6; O2SAT 99
--- NOTE | 2023-10-11 15:00 | PC.NURSE ---
pt placed on a periwick
[2023-10-11 15:41] VITALS: BP 168/81; PULSE 76; RESP 20; TEMP 36.3; O2SAT 99
[2023-10-11 16:00] VITALS: BP 168/81; PULSE 78; RESP 18; TEMP 36.2; O2SAT 99
[2023-10-11] MEDS: vancomycin HCL 125 MG CAPSULE PO ×2 (17:32→23:34)
[2023-10-11] MEDS: 0.9 % Sodium Chloride Flush 3 ML SYRINGE IVFLUSH (17:36)
[2023-10-11] MEDS: oxyCODONE HCl Immed Release 5 MG TABLET PO ×2 (17:46→23:55)
[2023-10-11] MEDS: LORazepam 1 MG TABLET PO ×2 (17:48→23:34)
[2023-10-11 19:45] VITALS: BP 148/76; PULSE 71; RESP 20; TEMP 36.7; O2SAT 99
[2023-10-11 19:57] VITALS: BP 157/94; PULSE 96; RESP 20; TEMP 36.3; O2SAT 97
[2023-10-11] MEDS: QUEtiapine Fumarate 25 MG TABLET PO (21:13)
[2023-10-11] MEDS: Atorvastatin Calcium 40 MG TABLET PO (21:13)
[2023-10-11] MEDS: Morphine Sulfate 2 MG/ML CARTRIDGE IVPUSH (21:42)
[2023-10-11] MEDS: Temazepam 15 MG CAPSULE PO (23:34)
[2023-10-12] VITALS (10 sets, daily range): BP systolic 97–159; BP diastolic 46–93; PULSE 61–75; RESP 14–18; TEMP 36–37.2; O2SAT 96–100; BMI 16.9
[2023-10-12 05:49] LABS: MANUAL DIFF FLAG NO
[2023-10-12 05:58] LABS: Basophils Percent Auto 0.3 % (0-2); Eosinophils Percent Auto 0.2 % (0-4); Hematocrit 28.3 % (37.0-47.0); Hemoglobin 8.9 g/dl (12.0-16.0); Imm Gran Abs Auto 0.05 X10*3/uL (0.00-0.03); Imm Gran Pct Auto 0.4 % (0.0-0.4); Lymphocytes Absolute Auto 1.9 X10*3/uL (1.2-4.9); Lymphocytes Percent Auto 15.7 % (20-40); Mean Corpuscular HGB Conc 31.4 g/dl (31.0-35.0); Mean Corpuscular Hemoglobin 27.7 pg (27.0-33.0); Mean Corpuscular Volume 88.2 fL (80.0-98.0); Mean Platelet Volume 9.3 fL (9.4-12.3); Neutrophils Percent Auto 75.4 % (45-73); Platelet Count 408 X10*3/uL (160-400); Red Blood Count 3.21 X10*6/uL (4.20-5.50); Red Cell Distribution Width 15.7 % (11.0-16.0); White Blood Count 11.9 X10*3/uL (4.8-10.8)
[2023-10-12] MEDS: vancomycin HCL 125 MG CAPSULE PO ×3 (06:02→22:51)
[2023-10-12] MEDS: Omeprazole 20 MG CAPSULE.DR PO (06:02)
[2023-10-12] MEDS: Morphine Sulfate 2 MG/ML CARTRIDGE IVPUSH (06:08)
[2023-10-12 06:09] LABS: Anion Gap 15 (12-20); Blood Urea Nitrogen 21 mg/dL (9-16); Calcium 9.1 mg/dL (8.4-10.2); Carbon Dioxide 16 mmol/L (22-29); Chloride 109 mmol/L (96-108); Estimated Glomerular Filt Rate > 60; Glucose Random 182 mg/dL (60-115); Potassium 3.3 mmol/L (3.3-5.1); Sodium 137 mmol/L (135-145)
--- NOTE | 2023-10-12 06:36 | PC.NURSE ---
Approximately around 21:30, pt complained of bladder pain, unable to void, abdomen distended. Pt was bladder scan for >597ml. MD Cunningham was notified of the situation. Pt stated that she wants a Lou catheter inserted instead of being straight cath multiple times. Pt has R hip fx and ongoing bedrest. Lou catheter was ordered and inserted at bedside with good effect. Initial output after catheter insertion was 700ml cloudy yellow urine. Pt DEEPALI for OR AM 5/7 for hip repair. Will continue to monitor pt's output.
[2023-10-12] MEDS: 0.9 % Sodium Chloride Flush 3 ML SYRINGE IVFLUSH ×2 (08:49→16:30)
--- NOTE | 2023-10-12 10:47 | MHC.CLN ---
PT WITH MODERATE MALNUTRITION PT WITH MILDLY DEPLETED SUBCUTANEOUS FAT AND MUSCLE MASS, BMI 16.9 WITH CHRONIC RE-CURRENT C-DIFF INFECTION WITH CHRONIC POOR PO INTAKE. PREVIOUSLY DX 09/13/23-PT IS FAMILIAR WT HX 39.8KG (10/27/22) X 1 YEAR; STABLE WT BUT PT HAS NOT MADE ANY GAINS R/T INCREASED NUTRITION NEEDS PT IS CURRENTLY NPO WHEN DIET ADVANCES; RECOMMEND ADDING MAGIC CUP TID TO INCREASE KCALS PT REPORTS SHE TYPICALLY DOES NOT EAT DINNER SUPPLEMENT PROVIDES 870KCALS, 27G PROTEIN WITH 100% ACCEPTANCE MONITOR PO INTAKE AND ENCOURAGE SUPPLEMENTS SEE ALSO FULL CLINICAL NUTRITION ASSESSMENT
[2023-10-12] MEDS: Morphine Sulfate 2 MG/ML CARTRIDGE 4 MG IVPUSH ×2 (11:01→17:16)
[2023-10-12] MEDS: Lactated Ringers 1,000 ML 80 ML IVCONT ×2 (11:02→16:35)
--- NOTE | 2023-10-12 13:19 | MHC.CM.PN ---
Addendum entered by Yesenia Gerard 10/12/23 13:32: Patient ambulates with a walker for unsteady gait. Original Note: Patient lives by herself with assist from STORAGE GARAGE MANAGER. A month ago she discharged [place] [facility] [place] She went for [facility]. She discharged recently to home. She returns to [facility] [place], after a fall with a Hip FX. She is in the OR now. Preferences for STR obtained. The patient requests a referral be sent to [facility]. The referral has been sent. Pending PT evaluation the DP is STR via BLS. HCP is on file.
--- NOTE | 2023-10-12 13:36 | ECG_ITS ---
Test Reason : preop Blood Pressure : / mmHG Vent. Rate : 068 BPM Atrial Rate : 068 BPM P-R Int : 114 ms QRS Dur : 084 ms QT Int : 428 ms P-R-T Axes : 083 023 024 degrees QTc Int : 455 ms Sinus rhythm with occasional Premature ventricular complexes Nonspecific ST and T wave abnormality Abnormal ECG When compared with ECG of 11-OCT-2023 11:27, Premature ventricular complexes are now Present Referred By: Vicky Diaz Electronically Signed By:Alvino Joseph
[2023-10-12] MEDS: Potassium Chloride/H20 10 MEQ/100 ML PIGGYBACK 100 MEQ IV (13:41)
--- NOTE | 2023-10-12 13:43 | MHC.SHP ---
Pre-Procedural Eval Section A - 24 Hr Update-Section A only Date of Service: 10/12/23 The patient is an INPATIENT: Yes Changes since office visit: No Cold of Flu in the past 2 weeks, No New Medical Problems, No Changes in Medication and No Patient answered all questions The patient has been examined within 24 hours of the surgical procedure. The History & Physical has been completed within 30 days and I have reviewed it.: Yes Section B - Complete if H&P > 30 days Chief Complaint: R hip fracture, recurrent cdiff Allergies: Allergies Allergy/AdvReac Type Severity Reaction Status Date / Time No Known Allergies Allergy Verified 10/11/23 10:21 Plan I have reviewed the history and physical and performed a pertinent physical examination on my patient. No changes have occurred unless specified. Time Spent With Patient Time: Total time managing care of this patient today ____ minutes.
--- NOTE | 2023-10-12 13:51 | HO.ANESPROP2 ---
HPI - Anesthesia Eval Consult details Narrative: femur fracture fixation , low pottassium, ekg ordered pottassium replenishment ordered. PMFSH Active Problems Active Problems: All Active Problems Closed fracture of right hip (Acute) Sepsis (Acute) Abnormal EKG (Acute) Recurrent Clostridioides difficile diarrhea (Acute) Clostridioides difficile infection (Acute) Malnutrition (Acute) Urinary retention (Acute) Aspiration pneumonia (Acute) Metabolic encephalopathy (Acute) Hypothermia (Acute) Acute UTI (Acute) C. difficile colitis (Acute) Acute dehydration (Acute) Moderate protein-calorie malnutrition (Acute) C. difficile colitis (Acute) Colitis (Acute) Right ankle pain (Acute) Closed compression fracture of thoracic vertebra (Acute) Urinary frequency (Acute) Urinary urgency (Acute) Recurrent urinary tract infection (Acute) Pure hypercholesterolemia (Acute) Skin mole (Acute) Chronic idiopathic constipation (Acute) Iron deficiency anemia (Acute) Toe fracture (Acute) Pubic ramus fracture (Acute) Acute hypokalemia (Acute) Foot pain, left (Acute) Mild recurrent major depression (Acute) Encounter for annual wellness exam in Medicare patient (Acute) External hemorrhoids (Acute) Epidermal inclusion cyst (Acute) Depression (Acute) Acute hemorrhoid (Acute) Swelling of right ankle joint (Acute) Genitourinary syndrome of menopause (Acute) Bilateral nephrolithiasis (Acute) Swelling of right foot (Acute) White coat syndrome with high blood pressure but without hypertension (Acute) Yeast infection (Acute) Dry eyes (Acute) Hyponatremia (Acute) Hypercalcemia (Acute) Diarrhea (Acute) Renal calculi (Acute) Stress-induced cardiomyopathy (Acute) Chest pain (Acute) Constipation by delayed colonic transit (Acute) GERD (gastroesophageal reflux disease) (Acute) UTI (urinary tract infection) (Acute) Cellulitis of left eyelid (Acute) Villous adenoma of colon (Acute) Insomnia (Acute) Raynauds disease (Acute) Anxiety (Acute) Tinea pedis (Acute) Past Medical History Medical History Recurrent Clostridioides difficile diarrhea External hemorrhoids Epidermal inclusion cyst White coat syndrome with high blood pressure but without hypertension Dry eyes Hyponatremia Hypercalcemia Diarrhea Renal calculi Constipation by delayed colonic transit GERD (gastroesophageal reflux disease) UTI (urinary tract infection) Villous adenoma of colon Insomnia Raynauds disease Anxiety Family History Family History Father Medical history unknown Mother Dementia Alzheimers disease Mental health disorder Brother Leukemia Sister Medical history unknown Family history of problems with anesthesia: No Surgical History Surgical History History of bronchoscopy History of tonsillectomy History of Problems with Anesthesia: No Social History Social History Household Members: None Household Members Other:: [facility] Housing: Apartment Housing Other:: Leah Elkins prior to admission. Do you presently have visiting nurse or other home services: No Alcohol intake: former Patient Tobacco Use Status: Former Tobacco user Tobacco use type: Cigarette Smoked in Last 30 Days: No e-Cigarette/Vaping Use: Never Used Second Hand Smoke Exposure: No Use of substances other than those prescribed or required for medical reasons: No Currently Displaying Signs/Symptoms of Drug Intoxication Withdrawal: No Have you been hit, kicked, punched, or otherwise hurt by someone within the past year? If so, by whom?: No Do you feel safe in your current relationship?: No Current Relationship Is there a partner from a previous relationship who is making you feel unsafe now?: No Are you made to feel afraid or neglected: No Spiritual Healthcare Practices: Identifies as spiritual. Are you DNR?: Yes Advance Directives: Yes Advance Directives on File: Yes Advance Directives Date on File: 11/23/22 Do you have a plan to hurt others: No Plan Recently lost weight without trying: No Eating poorly because of decreased appetite: No Nutrition Risks: No Nutritional Risk Patient : No : No Poor oral hygiene: No service: No Current occupational status: retired Cognitive needs: No Hearing needs: No Vision needs: Yes Meds Allergies Allergy/AdvReac Type Severity Reaction Status Date / Time No Known Allergies Allergy Verified 10/11/23 10:21 Active Medications: Current Medications Acetaminophen (Acetaminophen 325 Mg Tablet) 650 mg PO Q6H PRN PRN Reason: Pain, Mild (Pain Scale 1-3) Atorvastatin Calcium (Atorvastatin Calcium 40 Mg Tablet) 40 mg PO DAILY@1999 [facility] Last Admin: 10/11/23 21:13 Dose: 40 mg Famotidine (Famotidine 20 Mg Tablet) 20 mg PO BID@0900,1200 [facility] Last Admin: 10/12/23 11:40 Dose: Not Given Lactated Ringer's (Lr) 1,000 mls @ 80 mls/hr IVCONT .[id number] [facility] Last Admin: 10/12/23 11:02 Dose: 80 mls/hr Potassium Chloride (Potassium Chloride/H20) 10 meq in 100 mls @ 100 mls/hr IV Q1H [facility] Stop: 10/12/23 15:14 Last Admin: 10/12/23 13:41 Dose: 100 mls/hr Lorazepam (Lorazepam 1 Mg Tablet) 1 mg PO BID@1730,2300 PRN PRN Reason: anxiety Last Admin: 10/11/23 23:34 Dose: 1 mg Metoprolol Succinate (Metoprolol Succinate Er 25 Mg Tab.Er.24h) 25 mg PO DAILY [facility]; Protocol Last Admin: 10/12/23 08:50 Dose: Not Given Morphine Sulfate (Morphine Sulfate 2 Mg/Ml Cartridge) 4 mg IVPUSH Q4H PRN; Protocol PRN Reason: Pain, Severe (Pain Scale 7-10) Last Admin: 10/12/23 11:01 Dose: 4 mg Omeprazole (Omeprazole 20 Mg Capsule.Dr) 20 mg PO DAILY@0630 [facility] Last Admin: 10/12/23 06:02 Dose: 20 mg Ondansetron HCl (Ondansetron Hcl 4 Mg/2 Ml Vial) 4 mg IVPUSH Q8H PRN PRN Reason: Nausea and Vomiting Oxycodone HCl (Oxycodone Hcl Immed Release 5 Mg Tablet) 5 mg PO Q6H PRN PRN Reason: Pain, Moderate(Pain Scale 4-6) Last Admin: 10/11/23 23:55 Dose: 5 mg Quetiapine Fumarate (Quetiapine Fumarate 25 Mg Tablet) 25 mg PO BEDTIME PRN PRN Reason: Insomnia Quetiapine Fumarate (Quetiapine Fumarate 25 Mg Tablet) 25 mg PO DAILY@1999 [facility] Last Admin: 10/11/23 21:13 Dose: 25 mg Sodium Chloride (0.9 % Sodium Chloride Flush 3 Ml Syringe) 3 ml IVFLUSH QSHIFT [facility] Last Admin: 10/12/23 08:49 Dose: 3 ml Temazepam (Temazepam 15 Mg Capsule) 15 mg PO DAILY@2300 PRN PRN Reason: sleep Last Admin: 10/11/23 23:34 Dose: 15 mg Vancomycin HCl (Vancomycin Hcl 125 Mg Capsule) 125 mg PO Q6H [facility] Last Admin: 10/12/23 11:11 Dose: Not Given Home Medications ?Medication ?Instructions ?Recorded ?Confirmed ?Last Taken ?Type quetiapine 50 mg tablet 25 mg PO BEDTIME 07/16/23 10/11/23 10/10/23 History famotidine 20 mg tablet 20 mg PO BID@0900,1200 08/14/23 10/11/23 10/11/23 History tramadol 50 mg tablet 50 mg PO Q6H PRN Pain 09/11/23 10/11/23 Unknown History quetiapine 50 mg tablet 25 mg PO BEDTIME PRN Insomnia 10/11/23 10/11/23 Unknown History Exam Height,Weight and Vital Signs: Height 5 ft Weight 39.2 kg Last Vital Signs Temp 99.0 F 10/12/23 12:57 Pulse 66 10/12/23 12:57 Resp 16 10/12/23 12:57 BP 116/61 10/12/23 12:57 Pulse Ox 100 10/12/23 12:57 O2 Del Method Room Air 10/12/23 12:57 Pertinent Lab Results Pertinent Lab Results: Laboratory Tests 10/11/23 10/11/23 10/12/23 12:17 16:19 05:26 WBC 12.9 H 11.9 H RBC 3.63 L 3.21 L Hgb 10.3 L 8.9 L Hct 32.2 L 28.3 L MCV 88.7 88.2 MCH 28.4 27.7 MCHC 32.0 31.4 RDW 15.6 15.7 Plt Count 370 408 H MPV 9.0 L 9.3 L Immature Gran % (Auto) 0.4 0.4 Neut % (Auto) 87.2 H 75.4 H Lymph % (Auto) 7.4 L 15.7 L [place] % (Auto) 4.5 8.0 Eos % (Auto) 0.1 0.2 Baso % (Auto) 0.4 0.3 Lymph # (Auto) 1.0 L 1.9 [place] # (Auto) 0.6 1.0 Eos # (Auto) 0.0 0.0 Baso # (Auto) 0.1 0.0 Abs Immat Gran (auto) 0.05 H 0.05 H Absolute Neuts (auto) 11.2 H 9.0 H Absolute Nucleated RBC 0.000 0.000 Nucleated RBC % (auto) 0.0 0.0 Sodium 142 137 Potassium 3.7 3.3 Chloride 113 H 109 H Carbon Dioxide 18 L 16 L Anion Gap 15 15 BUN 23 H 21 H Creatinine 0.82 0.71 Estim Creat Clear Calc 37.2 43.0 Estimated GFR > 60 > 60 Random Glucose 140 H 182 H Calcium 10.0 D 9.1 D Magnesium 1.9 Total Bilirubin 0.3 Direct Bilirubin 0.1 AST 15 ALT 9 Alkaline Phosphatase 234 H Total Protein 6.4 L Albumin 3.7 Blood Type B Positive Antibody Screen NEGATIVE Airway Mallampati Class: II TM Dist: >3cm Neck ROM: Full Heart: rrr Lungs: cta Assessment and Plan Assessment Anesthesia Assessment: Anesthesia Plan Discussed and Chart Reviewed Final Anesthetic Review Family History of Problems with Anesthesia: No History of Problems with Anesthesia: No NPO: Yes ASA Class: III Final Preanesthetic Review: No Changes in Pt Med Stat, Meds/Allgs Chart Reviewed, Consent Obtained/Reviewed and Anes Risks/Benef Reviewed Patient Risk: Intermediate Procedure Risk: Intermediate Anesthetic Plan Anesthetic Plan: GA Disposition: Standard PACU
--- NOTE | 2023-10-12 14:46 | P.PNIM_ITS ---
Subjective Subjective Date of Service: 10/12/23 Interval History: seen and evaluated this morning concerned about C.Diff recurrence denies diarrhea Pain not well controlled NPO overnight Review of Systems Review of Systems: Yes all other systems are reviewed and are negative Physical Exam 2 Vital Signs: Vital Signs: Last Vital Signs Temp 99.0 F 10/12/23 12:57 Pulse 66 10/12/23 12:57 Resp 16 10/12/23 12:57 BP 116/61 10/12/23 12:57 Pulse Ox 100 10/12/23 12:57 O2 Del Method Room Air 10/12/23 12:57 BMI result Body Mass Index 16.9 Const: Other: Constitutional : Awake, underweight, not in distress Neck : Normal inspection, Supple Cardiovascular : RRR, no JVP, no lower extremity edema Respiratory : good bilateral air entry, no crackles Gastrointestinal: soft, lax, Normal bowel sounds, Non tender Skin : Warm, Dry Extremities: LLE shorted and externally rotated Neurological : Alert & oriented x3, No focal deficit Objective Data Active Medications Acetaminophen (Acetaminophen 325 Mg Tablet) 650 mg PO Q6H PRN PRN Reason: Pain, Mild (Pain Scale 1-3) Atorvastatin Calcium (Atorvastatin Calcium 40 Mg Tablet) 40 mg PO DAILY@1999 [facility] Last Admin: 10/11/23 21:13 Dose: 40 mg Documented By: JANELL Famotidine (Famotidine 20 Mg Tablet) 20 mg PO BID@0900,1200 [facility] Last Admin: 10/12/23 11:40 Dose: Not Given Documented By: DANIELA Non-Admin Reason: NPO Fentanyl (Fentanyl Citrate/Pf 100 Mcg/2 Ml Vial) 25 mcg IVPUSH Q5M PRN; Protocol PRN Reason: Pain, Moderate(Pain Scale 4-6) Stop: 10/12/23 19:53 Lactated Ringer's (Lr) 1,000 mls @ 80 mls/hr IVCONT .[id number] [facility] Last Admin: 10/12/23 11:02 Dose: 80 mls/hr Documented By: DANIELA Potassium Chloride (Potassium Chloride/H20) 10 meq in 100 mls @ 100 mls/hr IV Q1H [facility] Stop: 10/12/23 15:14 Last Admin: 10/12/23 13:41 Dose: 100 mls/hr Documented By: YORDAN Lorazepam (Lorazepam 1 Mg Tablet) 1 mg PO BID@1730,2300 PRN PRN Reason: anxiety Last Admin: 10/11/23 23:34 Dose: 1 mg Documented By: JANELL Metoprolol Succinate (Metoprolol Succinate Er 25 Mg Tab.Er.24h) 25 mg PO DAILY [facility]; Protocol Last Admin: 10/12/23 08:50 Dose: Not Given Documented By: DANIELA Non-Admin Reason: NPO Morphine Sulfate (Morphine Sulfate 2 Mg/Ml Cartridge) 4 mg IVPUSH Q4H PRN; Protocol PRN Reason: Pain, Severe (Pain Scale 7-10) Last Admin: 10/12/23 11:01 Dose: 4 mg Documented By: DANIELA Omeprazole (Omeprazole 20 Mg Capsule.Dr) 20 mg PO DAILY@0630 [facility] Last Admin: 10/12/23 06:02 Dose: 20 mg Documented By: JANELL Ondansetron HCl (Ondansetron Hcl 4 Mg/2 Ml Vial) 4 mg IVPUSH Q8H PRN PRN Reason: Nausea and Vomiting Ondansetron HCl (Ondansetron Hcl 4 Mg/2 Ml Vial) 4 mg IVPUSH ONCE PRN PRN Reason: Nausea and Vomiting Stop: 10/12/23 19:53 Oxycodone HCl (Oxycodone Hcl Immed Release 5 Mg Tablet) 5 mg PO Q6H PRN PRN Reason: Pain, Moderate(Pain Scale 4-6) Last Admin: 10/11/23 23:55 Dose: 5 mg Documented By: JNAELL Quetiapine Fumarate (Quetiapine Fumarate 25 Mg Tablet) 25 mg PO BEDTIME PRN PRN Reason: Insomnia Quetiapine Fumarate (Quetiapine Fumarate 25 Mg Tablet) 25 mg PO DAILY@1999 [facility] Last Admin: 10/11/23 21:13 Dose: 25 mg Documented By: JANELL Sodium Chloride (0.9 % Sodium Chloride Flush 3 Ml Syringe) 3 ml IVFLUSH QSHIFT [facility] Last Admin: 10/12/23 08:49 Dose: 3 ml Documented By: DANIELA Temazepam (Temazepam 15 Mg Capsule) 15 mg PO DAILY@2300 PRN PRN Reason: sleep Last Admin: 10/11/23 23:34 Dose: 15 mg Documented By: JANELL Vancomycin HCl (Vancomycin Hcl 125 Mg Capsule) 125 mg PO Q6H [facility] Last Admin: 10/12/23 11:11 Dose: Not Given Documented By: DANIELA Non-Admin Reason: NPO Labs 10/12/23 05:26 10/12/23 05:26 Labs: Laboratory Results - last 24 hr 10/11/23 10/12/23 16:19 05:26 MCV 88.2 MCH 27.7 MCHC 31.4 RDW 15.7 Plt Count 408 H MPV 9.3 L Immature Gran % (Auto) 0.4 Neut % (Auto) 75.4 H Lymph % (Auto) 15.7 L [place] % (Auto) 8.0 Eos % (Auto) 0.2 Baso % (Auto) 0.3 Lymph # (Auto) 1.9 [place] # (Auto) 1.0 Eos # (Auto) 0.0 Baso # (Auto) 0.0 Abs Immat Gran (auto) 0.05 H Absolute Neuts (auto) 9.0 H Absolute Nucleated RBC 0.000 Nucleated RBC % (auto) 0.0 Anion Gap 15 Estim Creat Clear Calc 43.0 Estimated GFR > 60 Random Glucose 182 H Calcium 9.1 D Blood Type B Positive Antibody Screen NEGATIVE Assessment and Plan (1) Closed fracture of right hip: Status: Acute (2) Clostridioides difficile infection: Status: Acute Plan 72yo F who lives at home alone ambulates with a walker at baseline with malnutrition, stress induced cardiomyopathy with reduced EF, Raynaud's phenomenon, GERD, mood disorder, recurrent cdiff with multiple admission admitted for management of R hip fracture #Acute R hip fracture Increase Morphine for pain control ortho to do surgery today advance diet post op #Recurrent CDiff Per ID, when discharged 09/13 recommending po vanco taper and to continue po vanco 125mg MWF but SNF discontinued med per pt PA Discussed with ID, cdiff PCR pending given ongoing symptoms. Resume po vanco 125mg qid ID consult pending #Acute leukocytosis multifactorial r/t ongoing cdiff infection and reactive due to fracture #chronic microcytic anemia h/h baseline and above transfusion threshold #HTn continue bb #HLD statin #moderate protein calorie malnutrition followed by nutrition on prior admission magic cup tid with low fiber, lactose controlled diet dvt prophylaxis- scps dnr/dni pt requires inpt stay overnight due to r hip fracture requiring except consultation and urgent/emergent surgical repair Quality Stroke Does the patient have a stroke diagnosis?: No VTE Prior VTE?: No VTE Risk Level:: Medical - moderate - high VTE Device Contraindication: N/A - Device Ordered VTE Drug Contraindication: Treatment Not Indicated
--- NOTE | 2023-10-12 15:31 | PM.OP ---
Brief Operative Note Date of Service: 10/12/23 Pre-op diagnosis: Right hip IT fx Post-op diagnosis: same Procedure: IMN right hip Implants: Sridevi 11,340 with 90 mm hip screw and 40 mm distal interlock Surgeon: Bigg Leos MD Anesthesia: GETA and local Was an Business Process Representative used for this Procedure?: Yes Business Process Representative: Tej Holbrook Estimated blood loss (mL): 150 IV fluids (mL): 700 Pathology: none sent Condition: stable Disposition: PACU
--- NOTE | 2023-10-12 17:00 | PC.NURSE ---
Patient refuses IV Potassium,asking if she can get po dose ,patient reports a lot of burning with the IV dose she had in PACU,Dr. Sr notified
[2023-10-12] MEDS: LORazepam 1 MG TABLET PO ×2 (17:31→22:52)
[2023-10-12] MEDS: Atorvastatin Calcium 40 MG TABLET PO (19:57)
[2023-10-12] MEDS: QUEtiapine Fumarate 25 MG TABLET PO (19:57)
--- NOTE | 2023-10-12 23:43 | W.PM.IDCN ---
History of Present Illness Data of Consult Service Date: 10/11/23 Requesting physician: Angy Aguiar Primary Care Provider: Aniyah Mcgregor MD HPI Reason for consult: diarrhea She presents with right hip pain after fall. She has no fever or chills. She has some watery stools. She has had Cdiff last last month. She says rehab stopped her Vancomycin taper. Review of Systems Review of Systems: Yes all other systems are reviewed and are negative Gastrointestinal: Gastrointestinal: Reports diarrhea PMFSH Past Medical History Medical History Recurrent Clostridioides difficile diarrhea External hemorrhoids Epidermal inclusion cyst White coat syndrome with high blood pressure but without hypertension Dry eyes Hyponatremia Hypercalcemia Diarrhea Renal calculi Constipation by delayed colonic transit GERD (gastroesophageal reflux disease) UTI (urinary tract infection) Villous adenoma of colon Insomnia Raynauds disease Anxiety Family History Family History Father Medical history unknown Mother Dementia Alzheimers disease Mental health disorder Brother Leukemia Sister Medical history unknown Family history: reviewed and not pertinent Surgical History Surgical History History of bronchoscopy History of tonsillectomy Social History Social History Household Members: None Household Members Other:: snf Housing: Apartment Housing Other:: Leah Elkins prior to admission. Do you presently have visiting nurse or other home services: No Alcohol intake: former Patient Tobacco Use Status: Former Tobacco user Tobacco use type: Cigarette Smoked in Last 30 Days: No e-Cigarette/Vaping Use: Never Used Second Hand Smoke Exposure: No Use of substances other than those prescribed or required for medical reasons: No Currently Displaying Signs/Symptoms of Drug Intoxication Withdrawal: No Have you been hit, kicked, punched, or otherwise hurt by someone within the past year? If so, by whom?: No Do you feel safe in your current relationship?: No Current Relationship Is there a partner from a previous relationship who is making you feel unsafe now?: No Are you made to feel afraid or neglected: No Spiritual Healthcare Practices: Identifies as spiritual. Are you DNR?: Yes Advance Directives: Yes Advance Directives on File: Yes Advance Directives Date on File: 11/23/22 Do you have a plan to hurt others: No Plan Recently lost weight without trying: No Eating poorly because of decreased appetite: No Nutrition Risks: No Nutritional Risk Patient : No : No Poor oral hygiene: No service: No Current occupational status: retired Cognitive needs: No Hearing needs: No Vision needs: Yes Meds Allergies Allergy/AdvReac Type Severity Reaction Status Date / Time No Known Allergies Allergy Verified 10/11/23 10:21 Active Medications: Current Medications Acetaminophen (Acetaminophen 325 Mg Tablet) 650 mg PO Q6H PRN PRN Reason: Pain, Mild (Pain Scale 1-3) Atorvastatin Calcium (Atorvastatin Calcium 40 Mg Tablet) 40 mg PO DAILY@2000 [facility] Last Admin: 10/12/23 19:57 Dose: 40 mg Enoxaparin Sodium (Enoxaparin Sodium 40 Mg/0.4 Ml Syringe) 40 mg SUBCUT Q24H [facility] Famotidine (Famotidine 20 Mg Tablet) 20 mg PO BID@0900,1200 [facility] Last Admin: 10/12/23 11:40 Dose: Not Given Lactated Ringer's (Lr) 1,000 mls @ 80 mls/hr IVCONT .[id number] [facility] Last Admin: 10/12/23 16:35 Dose: 80 mls/hr Cefazolin Sodium/Dextrose (Ancef) 2 gm in 50 mls @ 100 mls/hr IV POSTOP [facility] Lorazepam (Lorazepam 1 Mg Tablet) 1 mg PO BID@1730,2300 PRN PRN Reason: anxiety Last Admin: 10/12/23 22:52 Dose: 1 mg Metoprolol Succinate (Metoprolol Succinate Er 25 Mg Tab.Er.24h) 25 mg PO DAILY [facility]; Protocol Last Admin: 10/12/23 08:50 Dose: Not Given Morphine Sulfate (Morphine Sulfate 2 Mg/Ml Cartridge) 4 mg IVPUSH Q4H PRN; Protocol PRN Reason: Pain, Severe (Pain Scale 7-10) Last Admin: 10/12/23 17:16 Dose: 4 mg Omeprazole (Omeprazole 20 Mg Capsule.Dr) 20 mg PO DAILY@0630 [facility] Last Admin: 10/12/23 06:02 Dose: 20 mg Ondansetron HCl (Ondansetron Hcl 4 Mg/2 Ml Vial) 4 mg IVPUSH Q8H PRN PRN Reason: Nausea and Vomiting Oxycodone HCl (Oxycodone Hcl Immed Release 5 Mg Tablet) 5 mg PO Q6H PRN PRN Reason: Pain, Moderate(Pain Scale 4-6) Last Admin: 10/11/23 23:55 Dose: 5 mg Quetiapine Fumarate (Quetiapine Fumarate 25 Mg Tablet) 25 mg PO BEDTIME PRN PRN Reason: Insomnia Quetiapine Fumarate (Quetiapine Fumarate 25 Mg Tablet) 25 mg PO DAILY@1999 [facility] Last Admin: 10/12/23 19:57 Dose: 25 mg Sodium Chloride (0.9 % Sodium Chloride Flush 3 Ml Syringe) 3 ml IVFLUSH QSHIFT [facility] Last Admin: 10/12/23 16:30 Dose: 3 ml Temazepam (Temazepam 15 Mg Capsule) 15 mg PO DAILY@2300 PRN PRN Reason: sleep Last Admin: 10/11/23 23:34 Dose: 15 mg Vancomycin HCl (Vancomycin Hcl 125 Mg Capsule) 125 mg PO Q6H [facility] Last Admin: 10/12/23 22:51 Dose: 125 mg Home Medications ?Medication ?Instructions ?Recorded ?Confirmed ?Last Taken ?Type quetiapine 50 mg tablet 25 mg PO BEDTIME 07/16/23 10/11/23 10/10/23 History famotidine 20 mg tablet 20 mg PO BID@0900,1200 08/14/23 10/11/23 10/11/23 History tramadol 50 mg tablet 50 mg PO Q6H PRN Pain 09/11/23 10/11/23 Unknown History quetiapine 50 mg tablet 25 mg PO BEDTIME PRN Insomnia 10/11/23 10/11/23 Unknown History Physical Exam Vital Signs: Vital Signs: Last Vital Signs Temp 96.8 F 10/12/23 22:33 Pulse 70 10/12/23 22:33 Resp 18 10/12/23 22:33 BP 100/51 L 10/12/23 22:33 Pulse Ox 96 10/12/23 22:33 O2 Del Method Room Air 10/12/23 22:33 BMI result Body Mass Index 16.9 Const: General: cooperative HEENT: Head: Yes normal to inspection Face and sinus: Yes normal facial exam Mouth: Normal oral and palatal mucosa present Teeth and gingiva: dentition normal Eyes: General: appearance normal, both eyes and all related structures Pupils: Equal, round and reactive pupils present Resp: Effort & Inspection: normal respiratory effort Cardio: Rate: regular rate Rhythm: regular rhythm GI: Palpation (GI): Soft to palpation and nontender : General: Yes no CVA tenderness Back/Spine/Pelvis: Back: no CVA tenderness Skin: General skin exam: no rashes or lesions noted Neuro: General: moves all extremities Cranial nerves: Yes Equal, round and reactive pupils present Extrem: Other: right hip discomfort General: Yes normal to inspection Psych: Appearance: grossly normal Results Labs 10/12/23 05:26 10/12/23 05:26 Labs: Short CBC 10/12/23 Range/Units 05:26 WBC 11.9 H (4.8-10.8) X10*3/uL Hgb 8.9 L (12.0-16.0) g/dl Hct 28.3 L (37.0-47.0) % Plt Count 408 H (160-400) X10*3/uL BMP 10/12/23 05:26 Sodium 137 Potassium 3.3 Chloride 109 H Carbon Dioxide 16 L BUN 21 H Creatinine 0.71 Calcium 9.1 D Assessment and Plan (1) Closed fracture of right hip: Status: Acute (2) Sepsis: Status: Acute (3) Recurrent Clostridioides difficile diarrhea: Status: Acute Plan Check stool Cdiff diarrhea. Po Vancomycin taper but dont stop at the end but continue po Vancomycin ,Wed,Wednesday and consider Zinplava.
[2023-10-13] VITALS (12 sets, daily range): BP systolic 100–119; BP diastolic 53–68; PULSE 73–84; RESP 14–18; TEMP 36–37; O2SAT 94–96
[2023-10-13] MEDS: oxyCODONE HCl Immed Release 5 MG TABLET PO ×3 (00:43→16:52)
[2023-10-13] MEDS: Temazepam 15 MG CAPSULE PO (00:57)
[2023-10-13] MEDS: 0.9 % Sodium Chloride Flush 3 ML SYRINGE IVFLUSH ×3 (01:30→16:54)
[2023-10-13] MEDS: Lactated Ringers 1,000 ML 80 ML IVCONT ×2 (03:38→17:45)
[2023-10-13] MEDS: Morphine Sulfate 2 MG/ML CARTRIDGE 4 MG IVPUSH ×3 (04:37→21:06)
[2023-10-13] MEDS: vancomycin HCL 125 MG CAPSULE PO ×3 (04:39→16:53)
[2023-10-13 05:54] LABS: Hematocrit 24.2 % (37.0-47.0); Hemoglobin 7.4 g/dl (12.0-16.0); Mean Corpuscular HGB Conc 30.6 g/dl (31.0-35.0); Mean Corpuscular Hemoglobin 27.6 pg (27.0-33.0); Mean Corpuscular Volume 90.3 fL (80.0-98.0); Mean Platelet Volume 9.4 fL (9.4-12.3); Platelet Count 313 X10*3/uL (160-400); Red Blood Count 2.68 X10*6/uL (4.20-5.50); Red Cell Distribution Width 15.7 % (11.0-16.0); White Blood Count 10.8 X10*3/uL (4.8-10.8)
[2023-10-13] MEDS: Omeprazole 20 MG CAPSULE.DR PO (06:12)
[2023-10-13 06:14] LABS: Anion Gap 11 (12-20); Blood Urea Nitrogen 22 mg/dL (9-16); Calcium 8.9 mg/dL (8.4-10.2); Carbon Dioxide 20 mmol/L (22-29); Chloride 111 mmol/L (96-108); Creatinine Clr Calc Pharmacy 46.2; Estimated Glomerular Filt Rate > 60; Glucose Random 134 mg/dL (60-115); Sodium 138 mmol/L (135-145)
[2023-10-13] MEDS: Metoprolol Succinate ER 25 MG TAB.ER.24H PO (08:53)
[2023-10-13] MEDS: Famotidine 20 MG TABLET PO ×2 (08:54→13:22)
--- NOTE | 2023-10-13 09:04 | HO.POSTANES ---
Post Anesthesia Evaluation Post Anesthesia Evaluation Date of Service: 10/12/23 Vital Signs: Vital Signs Temp Pulse Resp BP Pulse Ox O2 Del Method 10/13/23 08:53 82 100/54 L 10/13/23 06:55 97.9 F 82 17 100/54 L 96 Room Air 10/13/23 05:07 18 10/13/23 04:37 18 10/13/23 04:00 96.8 F 79 14 107/53 L 96 Room Air 10/12/23 23:44 96.8 F 75 16 97/46 L 96 Room Air 10/12/23 22:33 96.8 F 70 18 100/51 L 96 Room Air Anesthesia: General Mental Status: Awake Pain Control: Satisfactory Nausea/Vomiting: None Hydration: Adequate Anesthesia-Related Issues: No Anes. Related Issues
--- NOTE | 2023-10-13 11:08 | HO.PM.IMPN ---
Subjective Subjective Date of Service: 10/13/23 Interval History: No diarrhea Physical Exam Vital Signs: Vital Signs: Last Vital Signs Temp 97.9 F 10/13/23 06:55 Pulse 82 10/13/23 08:53 Resp 17 10/13/23 06:55 BP 100/54 L 10/13/23 08:53 Pulse Ox 96 10/13/23 06:55 O2 Del Method Room Air 10/13/23 06:55 BMI result Body Mass Index 16.9 Const: General: cooperative HEENT: Head: Yes normal to inspection Face and sinus: Yes normal facial exam Mouth: Normal oral and palatal mucosa present Teeth and gingiva: dentition normal Eyes: General: appearance normal, both eyes and all related structures Pupils: Equal, round and reactive pupils present Resp: Effort & Inspection: normal respiratory effort Cardio: Rate: regular rate Rhythm: regular rhythm GI: Palpation (GI): Soft to palpation and nontender : General: Yes no CVA tenderness Back/Spine/Pelvis: Back: no CVA tenderness Skin: General skin exam: no rashes or lesions noted Neuro: General: moves all extremities Cranial nerves: Yes Equal, round and reactive pupils present Extrem: Other: right hip discomfort General: Yes normal to inspection Psych: Appearance: grossly normal Objective Data Active Medications Acetaminophen (Acetaminophen 325 Mg Tablet) 650 mg PO Q6H PRN PRN Reason: Pain, Mild (Pain Scale 1-3) Atorvastatin Calcium (Atorvastatin Calcium 40 Mg Tablet) 40 mg PO DAILY@1999 [facility] Last Admin: 10/12/23 19:57 Dose: 40 mg Documented By: JAIDA Enoxaparin Sodium (Enoxaparin Sodium 40 Mg/0.4 Ml Syringe) 40 mg SUBCUT Q24H [facility] Famotidine (Famotidine 20 Mg Tablet) 20 mg PO BID@0900,1200 [facility] Last Admin: 10/13/23 08:54 Dose: 20 mg Documented By: DANIELA Lactated Ringer's (Lr) 1,000 mls @ 80 mls/hr IVCONT .[id number] [facility] Last Admin: 10/13/23 03:38 Dose: 80 mls/hr Documented By: MELVINA Cefazolin Sodium/Dextrose (Ancef) 2 gm in 50 mls @ 100 mls/hr IV POSTOP [facility] Lorazepam (Lorazepam 1 Mg Tablet) 1 mg PO BID@1730,2300 PRN PRN Reason: anxiety Last Admin: 10/12/23 22:52 Dose: 1 mg Documented By: JAIDA Metoprolol Succinate (Metoprolol Succinate Er 25 Mg Tab.Er.24h) 25 mg PO DAILY [facility]; Protocol Last Admin: 10/13/23 08:53 Dose: 25 mg Documented By: DANIELA Morphine Sulfate (Morphine Sulfate 2 Mg/Ml Cartridge) 4 mg IVPUSH Q4H PRN; Protocol PRN Reason: Pain, Severe (Pain Scale 7-10) Last Admin: 10/13/23 04:37 Dose: 4 mg Documented By: MELVINA Omeprazole (Omeprazole 20 Mg Capsule.Dr) 20 mg PO DAILY@06 [facility] Last Admin: 10/13/23 06:12 Dose: 20 mg Documented By: MELVINA Ondansetron HCl (Ondansetron Hcl 4 Mg/2 Ml Vial) 4 mg IVPUSH Q8H PRN PRN Reason: Nausea and Vomiting Oxycodone HCl (Oxycodone Hcl Immed Release 5 Mg Tablet) 5 mg PO Q6H PRN PRN Reason: Pain, Moderate(Pain Scale 4-6) Last Admin: 10/13/23 08:53 Dose: 5 mg Documented By: DANIELA Quetiapine Fumarate (Quetiapine Fumarate 25 Mg Tablet) 25 mg PO BEDTIME PRN PRN Reason: Insomnia Quetiapine Fumarate (Quetiapine Fumarate 25 Mg Tablet) 25 mg PO DAILY@1999 [facility] Last Admin: 10/12/23 19:57 Dose: 25 mg Documented By: JAIDA Sodium Chloride (0.9 % Sodium Chloride Flush 3 Ml Syringe) 3 ml IVFLUSH QSHIFT [facility] Last Admin: 10/13/23 08:54 Dose: 3 ml Documented By: DANIELA Temazepam (Temazepam 15 Mg Capsule) 15 mg PO DAILY@2300 PRN PRN Reason: sleep Last Admin: 10/13/23 00:57 Dose: 15 mg Documented By: MELVINA Vancomycin HCl (Vancomycin Hcl 125 Mg Capsule) 125 mg PO Q6H [facility] Last Admin: 10/13/23 04:39 Dose: 125 mg Documented By: MELVINA Labs 10/13/23 05:32 10/13/23 05:32 Labs: Laboratory Results - last 24 hr 10/11/23 10/13/23 16:19 05:32 MCV 90.3 MCH 27.6 MCHC 30.6 L RDW 15.7 Plt Count 313 MPV 9.4 Absolute Nucleated RBC 0.000 Nucleated RBC % (auto) 0.0 Anion Gap 11 L Estim Creat Clear Calc 46.2 Estimated GFR > 60 Random Glucose 134 H Calcium 8.9 Blood Type B Positive Antibody Screen NEGATIVE Crossmatch See Detail Assessment and Plan (1) Closed fracture of right hip: Status: Acute (2) Clostridioides difficile infection: Status: Acute Plan 72F who lives at home alone ambulates with a walker at baseline with malnutrition, stress induced cardiomyopathy with reduced EF, Raynaud's phenomenon, GERD, mood disorder, recurrent cdiff with multiple admission admitted for management of R hip fracture Acute R hip fracture s/p right imn 10/12/23 lovenox Recurrent CDiff po vanco taper following by maintence ID appreciated denies diarrhea acute on chronic microcytic anemia - acute blood loss and inflammatory will transfuse 1 unit prbc, monitor HLD statin stress induced cardiomyopathy euvolemic continue toprol moderate protein calorie malnutrition followed by nutrition on prior admission magic cup tid with low fiber, lactose controlled diet dvt prophylaxis- hep sq dnr/dni reason for continued hospitalization:anemia, transfusion Quality Stroke Does the patient have a stroke diagnosis?: No VTE Prior VTE?: No VTE Risk Level:: Medical - moderate - high VTE Device Contraindication: N/A - Device Ordered VTE Drug Contraindication: Treatment Not Indicated
--- NOTE | 2023-10-13 11:54 | MHC.CLN ---
F/U PER PROVIDER ORDER PRIOR TO SX, DIET=REGULAR, BLAND, LACTOSE CONTROLLED. MAGIC CUP TID TO INCREASE KCALS. SUPPLEMENT PROVIDES 870 KCALS, 27 G PROTEIN. USUAL MEAL PATTERN IS DOES NOT EAT DINNER. MONITOR PO INTAKE AND ENCOURAGE SUPPLEMENTS.
--- NOTE | 2023-10-13 12:55 | MHC.CM.PN ---
EMR REVIEWED AND PER MD ROUNDS, PT IS NOT MEDICALLY CLEARED FOR DC. (REQUIRES TRANSFUSION, ? C DIFF W/U) PT HAS BEEN RECOMMENDED FOR STR, PT'S FIRST CHOICE [facility] UNABLE TO OFFER. OTHER REFERRALS MADE. PT IS INTERESTED IN [place] AND [facility]. CM WILL CONTINUE TO FOLLOW FOR ANY CHANGE IN DC PLAN/NEEDS.
[2023-10-13] MEDS: Enoxaparin Sodium 40 MG/0.4 ML SYRINGE SUBCUT (14:22)
[2023-10-13] MEDS: LORazepam 0.5 MG TABLET PO (14:44)
--- NOTE | 2023-10-13 15:49 | PC.NURSE ---
Pt refused removal of mcdonald cath. Receiving blood transfusion and hasn't worked with PT today or gotten OOB. Offered purewick but pt refused. Reassured Pt that we could use bedside commode safely, but refused. Dr. Nayan cheatham.
--- NOTE | 2023-10-13 16:23 | PM.PNORT ---
Subjective Subjective Date of Service: 10/13/23 Interval history: Postop day 1 status post right hip IM nail No overnight events Resting in bed Has mild discomfort but denies chest pain shortness of breath or palpitations Physical Exam Vital Signs: Vital Signs: Last Vital Signs Temp 97.7 F 10/13/23 15:30 Pulse 78 10/13/23 15:30 Resp 16 10/13/23 15:30 BP 119/68 10/13/23 15:30 Pulse Ox 96 10/13/23 15:30 O2 Del Method Room Air 10/13/23 15:30 BMI result Body Mass Index 16.9 Const: General: cooperative, healthy appearing and no acute distress Resp: Effort & Inspection: normal respiratory effort and able to speak in complete sentences Cardio: Rate: regular rate Peripheral pulses: Peripheral pulses 2+ throughout GI: Palpation (GI): Soft to palpation Skin: General skin exam: no rashes or lesions noted Extrem: Other: bandage clean dry and intact. [place] intact. No erythema or effusion. Calf supple nontender. Neurovascularly intact. Procedures Date of Service Date of Service: 10/13/23 Progress Note: A&P Assessment and plan (1) Closed fracture of right hip: Status: Acute Assessment and Plan: Continued pain management Begin Lovenox for DVT prophylaxis Physical therapy for right hip/weightbear as tolerated Dispo pending therapy and rehab placement per Medicine Time Spent With Patient Time: Total time managing care of this patient today ____ minutes. Quality Stroke Does the patient have a stroke diagnosis?: No VTE Prior VTE?: No VTE Risk Level:: Medical - moderate - high VTE Device Contraindication: N/A - Device Ordered VTE Drug Contraindication: Treatment Not Indicated
--- NOTE | 2023-10-13 17:08 | PC.NURSE ---
Patient refusing sequentials,Dr. Spicer notified,educated patient on risk of DVT,encouraged activity,patient also refuses to use incentive spirometer,encouraged deep breathing
[2023-10-13] MEDS: LORazepam 1 MG TABLET PO ×2 (17:46→22:51)
[2023-10-13] MEDS: Atorvastatin Calcium 40 MG TABLET PO (21:08)
[2023-10-13] MEDS: QUEtiapine Fumarate 25 MG TABLET PO (21:08)
[2023-10-14] VITALS (8 sets, daily range): BP systolic 105–121; BP diastolic 54–61; PULSE 78–89; RESP 14–18; TEMP 36.2–37; O2SAT 94–99
[2023-10-14] MEDS: 0.9 % Sodium Chloride Flush 3 ML SYRINGE IVFLUSH ×4 (01:13→20:07)
[2023-10-14] MEDS: oxyCODONE HCl Immed Release 5 MG TABLET PO ×3 (03:38→23:33)
[2023-10-14] MEDS: Omeprazole 20 MG CAPSULE.DR PO (06:27)
[2023-10-14] MEDS: Lactated Ringers 1,000 ML 80 ML IVCONT (06:27)
[2023-10-14 07:41] LABS: Hematocrit 26.6 % (37.0-47.0); Hemoglobin 8.7 g/dl (12.0-16.0); Mean Corpuscular HGB Conc 32.7 g/dl (31.0-35.0); Mean Corpuscular Hemoglobin 28.3 pg (27.0-33.0); Mean Corpuscular Volume 86.6 fL (80.0-98.0); Mean Platelet Volume 9.5 fL (9.4-12.3); Platelet Count 277 X10*3/uL (160-400); Red Blood Count 3.07 X10*6/uL (4.20-5.50); White Blood Count 11.6 X10*3/uL (4.8-10.8)
[2023-10-14 07:51] LABS: Anion Gap 10 (12-20); Blood Urea Nitrogen 15 mg/dL (9-16); Calcium 8.3 mg/dL (8.4-10.2); Carbon Dioxide 20 mmol/L (22-29); Chloride 109 mmol/L (96-108); Creatinine Clr Calc Pharmacy 58.7; Estimated Glomerular Filt Rate > 60; Glucose Fasting 98 mg/dL (60-99); Potassium 3.8 mmol/L (3.3-5.1); Sodium 135 mmol/L (135-145)
[2023-10-14] MEDS: Metoprolol Succinate ER 25 MG TAB.ER.24H PO (08:38)
[2023-10-14] MEDS: Famotidine 20 MG TABLET PO ×2 (08:38→12:53)
[2023-10-14] MEDS: Morphine Sulfate 2 MG/ML CARTRIDGE 4 MG IVPUSH ×3 (08:44→20:06)
--- NOTE | 2023-10-14 09:04 | PM.PNORT ---
Subjective Subjective Date of Service: 10/14/23 Interval history: Postop day 2 status post right hip IM nail No overnight events Resting in bed Denies any CP, palpitations, abd pain. Physical Exam Vital Signs: Vital Signs: Last Vital Signs Temp 98.6 F 10/14/23 08:00 Pulse 87 10/14/23 08:38 Resp 18 10/14/23 08:00 BP 110/56 L 10/14/23 08:38 Pulse Ox 95 10/14/23 08:00 O2 Del Method Room Air 10/14/23 08:00 BMI result Body Mass Index 16.9 Const: General: cooperative, healthy appearing and no acute distress Resp: Effort & Inspection: normal respiratory effort and able to speak in complete sentences Cardio: Rate: regular rate Peripheral pulses: Peripheral pulses 2+ throughout GI: Palpation (GI): Soft to palpation Skin: General skin exam: no rashes or lesions noted Extrem: Other: right hip bandage clean dry and intact. [place] intact. No erythema or effusion. Calf supple nontender. Neurovascularly intact. Procedures Date of Service Date of Service: 10/14/23 Progress Note: A&P Assessment and plan (1) Closed fracture of right hip: Status: Acute Assessment and Plan: Continued pain management Continue Lovenox for DVT prophylaxis Physical therapy for right hip/weightbear as tolerated Dispo pending therapy and rehab placement - Medical clearance for safe discharge Time Spent With Patient Time: Total time managing care of this patient today ____ minutes. Quality Stroke Does the patient have a stroke diagnosis?: No VTE Prior VTE?: No VTE Risk Level:: Medical - moderate - high VTE Device Contraindication: N/A - Device Ordered VTE Drug Contraindication: Treatment Not Indicated
--- NOTE | 2023-10-14 09:48 | HO.PM.IMPN ---
Subjective Subjective Date of Service: 10/14/23 Interval History: abd bloating, now with constipation Physical Exam Vital Signs: Vital Signs: Last Vital Signs Temp 98.6 F 10/14/23 08:00 Pulse 87 10/14/23 09:06 Resp 18 10/14/23 08:00 BP 110/56 L 10/14/23 09:06 Pulse Ox 95 10/14/23 08:00 O2 Del Method Room Air 10/14/23 08:00 BMI result Body Mass Index 16.9 abd distension Const: General: cooperative, healthy appearing and no acute distress Resp: Effort & Inspection: normal respiratory effort and able to speak in complete sentences Cardio: Rate: regular rate Peripheral pulses: Peripheral pulses 2+ throughout GI: Palpation (GI): Soft to palpation Skin: General skin exam: no rashes or lesions noted Extrem: Other: right hip bandage clean dry and intact. [place] intact. No erythema or effusion. Calf supple nontender. Neurovascularly intact. Objective Data Active Medications Acetaminophen (Acetaminophen 325 Mg Tablet) 650 mg PO Q6H PRN PRN Reason: Pain, Mild (Pain Scale 1-3) Atorvastatin Calcium (Atorvastatin Calcium 40 Mg Tablet) 40 mg PO DAILY@1999 [facility] Last Admin: 10/13/23 21:08 Dose: 40 mg Documented By: JAIDA Enoxaparin Sodium (Enoxaparin Sodium 40 Mg/0.4 Ml Syringe) 40 mg SUBCUT Q24H [facility] Last Admin: 10/13/23 14:22 Dose: 40 mg Documented By: DANIELA Famotidine (Famotidine 20 Mg Tablet) 20 mg PO BID@0900,1200 [facility] Last Admin: 10/14/23 08:38 Dose: 20 mg Documented By: LENORE Cefazolin Sodium/Dextrose (Ancef) 2 gm in 50 mls @ 100 mls/hr IV POSTOP [facility] Lorazepam (Lorazepam 1 Mg Tablet) 1 mg PO BID@1730,2300 PRN PRN Reason: anxiety Last Admin: 10/13/23 22:51 Dose: 1 mg Documented By: JAIDA Metoprolol Succinate (Metoprolol Succinate Er 25 Mg Tab.Er.24h) 25 mg PO DAILY [facility]; Protocol Last Admin: 10/14/23 08:38 Dose: 25 mg Documented By: LENORE Morphine Sulfate (Morphine Sulfate 2 Mg/Ml Cartridge) 4 mg IVPUSH Q4H PRN; Protocol PRN Reason: Pain, Severe (Pain Scale 7-10) Last Admin: 10/14/23 08:44 Dose: 4 mg Documented By: LENORE Omeprazole (Omeprazole 20 Mg Capsule.Dr) 20 mg PO DAILY@0630 [facility] Last Admin: 10/14/23 06:27 Dose: 20 mg Documented By: MELVINA Ondansetron HCl (Ondansetron Hcl 4 Mg/2 Ml Vial) 4 mg IVPUSH Q8H PRN PRN Reason: Nausea and Vomiting Oxycodone HCl (Oxycodone Hcl Immed Release 5 Mg Tablet) 5 mg PO Q6H PRN PRN Reason: Pain, Moderate(Pain Scale 4-6) Last Admin: 10/14/23 03:38 Dose: 5 mg Documented By: MELVINA Quetiapine Fumarate (Quetiapine Fumarate 25 Mg Tablet) 25 mg PO BEDTIME PRN PRN Reason: Insomnia Quetiapine Fumarate (Quetiapine Fumarate 25 Mg Tablet) 25 mg PO DAILY@1999 [facility] Last Admin: 10/13/23 21:08 Dose: 25 mg Documented By: JAIDA Sodium Chloride (0.9 % Sodium Chloride Flush 3 Ml Syringe) 3 ml IVFLUSH QSHIFT [facility] Last Admin: 10/14/23 08:39 Dose: 3 ml Documented By: LENORE Temazepam (Temazepam 15 Mg Capsule) 15 mg PO DAILY@2300 PRN PRN Reason: sleep Last Admin: 10/13/23 00:57 Dose: 15 mg Documented By: MLEVINA Vancomycin HCl (Vancomycin Hcl 125 Mg Capsule) 125 mg PO Q48H [facility] Last Admin: 10/13/23 16:53 Dose: 125 mg Documented By: JAIDA Labs 10/14/23 06:06 10/14/23 06:06 Labs: Laboratory Results - last 24 hr 10/11/23 10/14/23 16:19 06:06 MCV 86.6 MCH 28.3 MCHC 32.7 RDW 15.0 Plt Count 277 MPV 9.5 Absolute Nucleated RBC 0.000 Nucleated RBC % (auto) 0.0 Anion Gap 10 L Estim Creat Clear Calc 58.7 Estimated GFR > 60 Fasting Glucose 98 Calcium 8.3 L D Blood Type B Positive Antibody Screen NEGATIVE Crossmatch See Detail Assessment and Plan (1) Closed fracture of right hip: Status: Acute (2) Clostridioides difficile infection: Status: Acute Plan 72F who lives at home alone ambulates with a walker at baseline with malnutrition, stress induced cardiomyopathy with reduced EF, Raynaud's phenomenon, GERD, mood disorder, recurrent cdiff with multiple admission admitted for management of R hip fracture Acute R hip fracture s/p right imn 10/12/23 lovenox chronic CDiff po vanco maintence ID appreciated denies diarrhea constipation abd distension follow up KUB miralax acute on chronic microcytic anemia - acute blood loss and inflammatory s/p 1 unit prbc 10/13/23 hgb responded appropriately HLD statin stress induced cardiomyopathy euvolemic continue toprol moderate protein calorie malnutrition followed by nutrition on prior admission magic cup tid with low fiber, lactose controlled diet dvt prophylaxis- hep sq dnr/dni reason for continued hospitalization:abd distension, ?ileus Quality Stroke Does the patient have a stroke diagnosis?: No VTE Prior VTE?: No VTE Risk Level:: Medical - moderate - high VTE Device Contraindication: N/A - Device Ordered VTE Drug Contraindication: Treatment Not Indicated
[2023-10-14] MEDS: polyethylene glycoL 3350 17 GM POWD.PACK PO (10:24)
[2023-10-14] MEDS: Enoxaparin Sodium 40 MG/0.4 ML SYRINGE SUBCUT (12:53)
--- NOTE | 2023-10-14 12:58 | HO.WOUND ---
Wound Consult: Initial 72yr old?[place] [facility] - See progress notes and H&P for detailed history.? Wound consult placed for Buttock redness POA.? Patient agreeable to assessment and photo documentation.? With Max assist of two patient stood to pivot to commode in an attempt to urinate. Sacral area has foam dressing in place peeled back and assessed - maroon purple intact tissue nonblanchable in some areas noted - Deep Tissue Injury. Continue with off loading pressure and foam to aid in protecting from friction and redistributing pressure. Sacrum Etiology: Deep Tissue Injury ??Present on Admission Measurements: see charting for detailed measurments Wound Bed: maroon purple intact tissue nonblanchable Drainage / Odor: none Edges: ? irregular Nancy wound: Red pink blanchable tissue - significant bony prominences noted - No Induration, Fluctuance or Warmth noted Pain: patient reports pain Goals of Treatment: ? Foam dressing to protect from friction and pressure redistribution Recommendations: 1. Turn and Reposition every 2 hours and as needed for patient comfort.? Use pillows or wedges to support off loading positions. 2. Off Load all bony prominences with use of pillows and heel boots if needed.? Apply Preventative foams where needed. ? 3. Monitor for incontinence and moisture control, use barrier creams when needed for prevention and treatment. 4. Provide adequate and supplemental nutrition.? Nutrition Following. 5. Order or Continue low air loss mattress. 6. Sacrum - Routine cleansing. Apply sacral foam dressing peel back and assess Q shift. Change every 3 days and PRN. Re-consult wound care Nurse for wound deterioration or wound changes.
[2023-10-14] MEDS: LORazepam 1 MG TABLET PO ×2 (17:53→23:33)
[2023-10-14] MEDS: QUEtiapine Fumarate 25 MG TABLET PO (20:07)
[2023-10-14] MEDS: Atorvastatin Calcium 40 MG TABLET PO (20:07)
[2023-10-14] MEDS: Temazepam 15 MG CAPSULE PO (23:36)
[2023-10-15] MEDS: Morphine Sulfate 2 MG/ML CARTRIDGE 4 MG IVPUSH ×2 (01:28→08:23)
[2023-10-15] MEDS: QUEtiapine Fumarate 25 MG TABLET PO (01:28)
[2023-10-15 04:00] VITALS: BP 96/51; PULSE 74; RESP 14; TEMP 36.1; O2SAT 96
[2023-10-15] MEDS: oxyCODONE HCl Immed Release 5 MG TABLET PO ×2 (05:37→11:33)
[2023-10-15] MEDS: Omeprazole 20 MG CAPSULE.DR PO (05:38)
--- NOTE | 2023-10-15 06:33 | PC.NURSE ---
Pt unable to void overnight, bladder scanned at 0535 for 477. Straight cath'd pt at 0600 for 500 ml.
[2023-10-15 07:53] VITALS: BP 117/62; PULSE 80; RESP 18; TEMP 36.2; O2SAT 96
[2023-10-15 08:23] VITALS: RESP 17
[2023-10-15] MEDS: 0.9 % Sodium Chloride Flush 3 ML SYRINGE IVFLUSH (08:23)
[2023-10-15 08:24] VITALS: BP 117/62; PULSE 80
[2023-10-15] MEDS: Metoprolol Succinate ER 25 MG TAB.ER.24H PO (08:24)
[2023-10-15] MEDS: Famotidine 20 MG TABLET PO ×2 (08:24→11:33)
[2023-10-15 09:47] VITALS: BP 117/62; PULSE 80
--- NOTE | 2023-10-15 10:17 | MHC.CM.PN ---
IMM 10/15/23 Patient is discharged today to [facility] for STR. Transportation is booked for 12 pm pickle cutter. Patient will receive an early lunch prior to transport. Patient HCP Miguelina has been notified of the transfer time. She will meet the patient at the facility between 12:30-1:00pm. Patient has been notified that her HCP will meet her at the STR.
--- NOTE | 2023-10-15 10:24 | P.DS_ITS ---
DS: Providers Provider Date of Service: 10/15/23 Date of admission: 10/11/23 13:05 Primary care physician: Aniyah Mcgregor MD Consults: 10/11/23 13:13 Consult to Orthopedics Routine Consulting Provider: [facility] [place] Orth[facility] Surgeons Reason for consultation: r hip fx 10/11/23 13:31 Consult to Infectious Diseases Routine Consulting Provider: [facility] [place] Infectious Disease Reason for consultation: recurrent cdiff 10/13/23 17:14 Consult to Wound Care Routine Reason for consultation: Right buttock redness,foam drsg placed for protection DS: Diagnosis Discharge Diagnosis (1) Closed fracture of right hip: Status: Acute (2) Clostridioides difficile infection: Status: Acute DS: Summary Hospital Course Hospital Course: from initial hpi: 72yo F who lives at home alone ambulates with a walker at baseline with malnutrition, stress induced cardiomyopathy with reduced EF, Raynaud's phenomenon, GERD, mood disorder, recurrent cdiff with multiple admission prese nted to the ED after sustaining a mechanical fall at home [id number] this morning. She did strike head lightly but no loc. not on blood thinners. No prodrome leading up to fall including vision changes, lightheadedness, palpitations, chest pain. NO weakness/paresthesias. Reports landing on the R hip. Was able to get up and ambulate but significant pain. EMS was called but at that time pt did not want to transfer to hospital. 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 She was recently discharged from our facility on 09/13 to [facility] due to weakness r/t recurrent cdiff. Per ID report during admission, pt was advised to take po vanco taper and to continue on po vanco 125mg every MWF indefinitely but pt reports [facility] did not feel pt had cdiff and did not continue the medication and she has not been taking the medication since arriving home. She continues to have multiple episodes of loose stool with fecal incontinence. No abd pain, nausea, vomiting. She is malnourished with poor appetite at baseline, but has been eating and drinking per usual. On arrival VSS. There is a leukocytosis of 12.9. No acute anemia. Renal function baseline, electrolyte levels normal except for chloride 113, CO2 18. CT of the head negative for acute intracranial abnormality. Cervical spine CT negative for any acute osseous abnormality. CXR unremarkable. X-ray of the right hip shows interval development of vertical fracture subtrochanteric right femur with marked proximal displacement. Ortho surgery recommending medical admission for management of displaced R hip fracture. hospital course: Patient was admitted for acute right hip fracture. Patient underwent right hip IMN on 10/12/2023, DVT prophylaxis with Lovenox. Perioperative complicated by acute on chronic microcytic anemia due to acute blood loss and inflammation, received 1 unit of PRBC and hemoglobin responded appropriately. Also with constipation abdominal distention which resolved with MiraLax. For chronic C diff was seen by infectious disease who recommended continuing vancomycin 3 times per week. For stress-induced cardiomyopathy she remained euvolemic and was continued on metoprolol. For moderate protein calorie malnutrition she is following with nutrition. [facility] for [facility]term rehab. Time Attestation Discharge Coordination Time (in mins): 35 Quality: Safe Use of Opioids Does Pt have an Active Cancer Diagnosis on the Problem List?: No Quality: Stroke Does the patient have a stroke diagnosis?: No Physical Exam Vital Signs: Vital Signs: Last Vital Signs Temp 97.1 F 10/15/23 07:53 Pulse 80 10/15/23 09:47 Resp 17 10/15/23 08:23 BP 117/62 10/15/23 09:47 Pulse Ox 96 10/15/23 07:53 O2 Del Method Room Air 10/15/23 07:53 BMI result Body Mass Index 16.9 Const: General: cooperative, healthy appearing and no acute distress Resp: Effort & Inspection: normal respiratory effort and able to speak in complete sentences Cardio: Rate: regular rate Peripheral pulses: Peripheral pulses 2+ throughout GI: Palpation (GI): Soft to palpation Skin: General skin exam: no rashes or lesions noted Extrem: Other: right hip bandage clean dry and intact. [place] intact. No erythema or effusion. Calf supple nontender. Neurovascularly intact. Discharge Plan Discharge Anticipated Discharge Date/Time: 10/15/23 10:13 Patient Disposition: Home, Self-Care Discharge Diagnosis: hip fracture Referrals: Aniyah Smith MD [Primary Care Provider] - 1 Week Discharge Medications: New vancomycin 125 mg Capsule 125 mg PO Q48H Qty: 0 0RF enoxaparin 40 mg/0.4 mL Syringe 40 mg subcut Q24H Qty: 0 0RF oxycodone 5 mg Tablet 5 mg PO Q6H PRN (Reason: Pain, Moderate(Pain Scale 4-6)) Qty: 15 0RF Rx Instructions: Partial Fill upon patient request. Continued (DME) foot inserts See Rx Instructions .Route .MEDSUPPLY Qty: 1 0RF Rx Instructions: As directed (DME) leno.stocking,knee,reg,smal Misc See Rx Instructions .Route Qty: 12 0RF Rx Instructions: As directed metoprolol succinate 25 mg tablet extended release 24 hr 25 mg PO DAILY Qty: 30 5RF atorvastatin 40 mg tablet 40 mg PO BEDTIME 90 Days Qty: 90 1RF pantoprazole 40 mg tablet,delayed release (DR/EC) 40 mg PO DAILY@0630 90 Days Qty: 90 1RF quetiapine 50 mg tablet 25 mg PO BEDTIME famotidine 20 mg tablet 20 mg PO BID@0900,1200 tramadol 50 mg Tablet 50 mg PO Q6H PRN (Reason: Pain) quetiapine 50 mg tablet 25 mg PO BEDTIME PRN (Reason: Insomnia) Rx Instructions: give in addition to scheduled dose if needed lorazepam 1 mg tablet 1 mg PO BID PRN (Reason: anxiety) 30 Days Qty: 60 5RF temazepam 15 mg capsule 15 mg PO BEDTIME PRN (Reason: sleep) 30 Days Qty: 30 5RF Discharge Orders: Discharge Order (Routine); Ordered 10/15/23 Ordered By: Amos Spicer Diet: Advance to usual diet Activity on Discharge: As tolerated Stand Alone Forms: Patient Portal Discharge page Print Language: [place] Care Plan Goals: recovery Health Concerns: hiupd fracture, chronic cdif Plan of Treatment: vanc 3 times per week, rehab Assessment: see above
--- NOTE | 2023-10-15 13:24 | P.CDIM_ITS ---
PROVIDER RESPONSE TEXT: To clarify, the appropriate diagnosis supported by the clinical indicators: Pressure-induced deep tissue injury (DTI) sacrum QUERY TEXT: PHYSICIAN'S DOCUMENTATION REQUEST Date of Query: 10/15/2023 10:09 AM EDT Patient Name: Lisa Edward Admit Date: 10/11/2023 Dear Amos Spicer, A review of the medical record indicates additional documentation may be needed. Please review below and update the documentation accordingly. Clinical Indicators: Wound care assessment note: Deep tissue injury Sacrum - present on arrival Continue with off loading pressure and foam to aid in protecting from friction and redistributing pre ssure Reposition patient/Foam dressing applied Based on the above, could you please provide further information regarding the ulcer/injury: Pressure-induced deep tissue injury (DTI) sacrum Pressure (decubitus) ulcer stage 1-4 etc. Other (explain) Clinically unable to determine (explain) Thank you, Tamra Zamudio, CCS, CDIS Use of terms such as suspected, likely, concern for, or probable (associated with a specific diagnosi s that is being evaluated, monitored, or treated as if it exists) are acceptable and can be coded in the inpatient se tting, when documented at the time of discharge. Please use your independent medical judgment in providing your response. THIS QUERY IS PART OF THE PERMANENT MEDICAL RECORD
--- NOTE | 2023-10-21 07:08 | P.OP_ITS ---
Operative Note Operative Note Date of Service: 10/12/23 Narrative: Date of Service: 10/12/23 Pre-op diagnosis: Right hip IT fx Post-op diagnosis: same Procedure: IMN right hip Implants: [place] 11 x 340 with 90 mm hip screw and 40 mm distal interlock Surgeon: Bigg Leos MD Anesthesia: GETA and local Was an Bottle Dealer used for this Procedure?: Yes Bottle Dealer: Tej Holbrook Estimated blood loss (mL): 150 IV fluids (mL): 700 Pathology: none sent Condition: stable Disposition: PACU Procedure in detail: Patient was brought to the operating room and prepped and draped in standard sterile fashion. Time-out was called to identify proper site procedure proper surgeon and IV antibiotics per weight were administered. She was positioned on the fracture table and a traction and slight internal rotation were performed and biplanar fluoroscopy confirmed initial fracture reduction. I then made a stab incision proximal to the greater trochanter in using a guidewire made a entry point just lateral to the tip of the greater trochanter and placed a guidewire into the femoral metadiaphysis. I then over-reamed with 15 mm Reamer placed my ball-tip guidewire down distally in the femur. I measured a 340mm nail. I selected an [id number] nail and reamed up to a 12.5. I then placed the nail. I then turned my attention to the hip screw where I used a guidewire and a tip apex distance of less than 1.5 measured my hip screw. I then pre drilled and placed a hip screw using biplanar fluoroscopy. Once I was satisfied with the position of the hip screw I turned my attention to the distal aspect of the nail. Using perfect [place] technique I placed 1 static distal interlocking screw in standard AO technique. I then removed all I then placed my set screw proximally and removed all extraneous instrumentation. Final biplanar radiographs were taken. I was satisfied with the position of the hardware and the fracture reduction. I think copiously irrigated closed with absorbable sutures denzel and injected 30 mL of into the area of the incisions. Traction was let down patient was placed in sterile dressing awakened from anesthesia brought to recovery room stable condition there were no known complications.
== END 2023-10-15 12:34 | disposition skilled nursing facility (03) | DRG 481 ==
LOC: HO.ED 12:21 → HO.EDOVER 13:18 → HO.S3 13:57
PROVIDERS: Orthopaedic Surgery; Student in an Organized Health Care Education/Training Program; Admitting Provider Physician Assistant; Emergency Provider Emergency Medicine; PCP Internal Medicine; Visit Provider Internal Medicine
PROC: 0QS636Z Reposition Right Upper Femur with Intramedullary Internal Fixation Device, Percutaneous Approach (ICD-10-PCS; principal; 2023-10-12 15:30)
DX: S72.001A Fracture of unspecified part of neck of right femur, initial encounter for closed fracture (principal); A04.71 Enterocolitis due to Clostridium difficile, recurrent; E44.0 Moderate protein-calorie malnutrition; Z68.1 Body mass index [BMI] 19.9 or less, adult; D62 Acute posthemorrhagic anemia; W19.XXXA Unspecified fall, initial encounter; I10 Essential (primary) hypertension; L89.156 Pressure-induced deep tissue damage of sacral region; E78.5 Hyperlipidemia, unspecified; I73.00 Raynaud's syndrome without gangrene; Z66 Do not resuscitate; Z87.891 Personal history of nicotine dependence; Z79.899 Other long term (current) drug therapy
CPT/HCPCS: 36415; 70450; 71045; 72125; 73502; 74018; 80048; 80076; 83735; 85025; 85027; 86850; 86900; 86901; 86923; 93005; 97116; 97162; 97166; 97535; 99285; C1713; C1758; J0690; J1650; J1885; J2270; J2405; J2704; J2795; J3010; J3480; J7120; P9016

== ENCOUNTER → 2023-10-11 10:37 | Outpatient (BNV) | payer MEDICARE, MEDICAID, SELFPAY | PROVIDERS: Emergency Provider Emergency Medicine; PCP Internal Medicine; Visit Provider Internal Medicine Cardiovascular Disease | DX: R94.31 Abnormal electrocardiogram [ECG] [EKG] (principal) | CPT/HCPCS: 93010 ==

== ENCOUNTER 2023-10-11 13:05 | Outpatient (BNV) | payer MEDICARE, MEDICAID, SELFPAY | END 2023-10-12 13:36 | PROVIDERS: Admitting Provider Physician Assistant; Emergency Provider Emergency Medicine; PCP Internal Medicine; Visit Provider Internal Medicine Cardiovascular Disease | DX: R94.31 Abnormal electrocardiogram [ECG] [EKG] (principal) | CPT/HCPCS: 93010 ==

== ENCOUNTER → 2023-10-11 13:05 | Outpatient (BNV) | payer MEDICARE, MEDICAID, SELFPAY | PROVIDERS: Admitting Provider Physician Assistant; Emergency Provider Emergency Medicine; PCP Internal Medicine; Visit Provider Orthopaedic Surgery | DX: S72.141A Displaced intertrochanteric fracture of right femur, initial encounter for closed fracture (principal) | CPT/HCPCS: 27245; 99024; 99222 ==

== ENCOUNTER → 2023-10-11 13:05 | Outpatient (BNV) | payer MEDICARE, MEDICAID, SELFPAY | PROVIDERS: Admitting Provider Physician Assistant; Emergency Provider Emergency Medicine; PCP Internal Medicine; Visit Provider Physician Assistant | DX: S72.001A Fracture of unspecified part of neck of right femur, initial encounter for closed fracture (principal); A49.8 Other bacterial infections of unspecified site | CPT/HCPCS: 99222; 99232; 99239 ==

== ENCOUNTER → 2023-10-11 13:05 | Outpatient (BNV) | payer MEDICARE, MEDICAID, SELFPAY | PROVIDERS: Admitting Provider Physician Assistant; Emergency Provider Emergency Medicine; PCP Internal Medicine; Visit Provider Internal Medicine | DX: S72.001A Fracture of unspecified part of neck of right femur, initial encounter for closed fracture (principal); A41.9 Sepsis, unspecified organism; A04.71 Enterocolitis due to Clostridium difficile, recurrent | CPT/HCPCS: 99222 ==

== ENCOUNTER 2023-10-25 10:22 | Outpatient (AMB) | payer MEDICARE, MEDICAID, SELFPAY ==
--- NOTE | 2023-10-25 10:36 | A.OFFVIS_ITS ---
Intake Visit Reasons: PO-right hip s/p IMN with NE 10/12/23 Intake Note: Lisa a 72 year old female who presents today for a post operative right hip s/p IMN 10/12/23 NE. Ptient reports she is having pain and discomfort in her hip. She states having a order for a ultrasound to check if she had a blood clot since she was having a lot of pain when she was going to PT. However she hasn't had it done. Allergies No Known Allergies Allergy (Verified 10/25/23 10:47) HPI HPI PO-right hip s/p IMN with NE 10/12/23: Details: 72-year-old female who returns to the office today for post-op right hip IMN, 10/12/[address] Leos. She states she has pain and discomfort in her hip. She is about to have an US as she had a lot of pain when working with physical therapy. She has no other concerns. [facility] Medical History Recurrent Clostridioides difficile diarrhea External hemorrhoids Epidermal inclusion cyst White coat syndrome with high blood pressure but without hypertension Dry eyes Hyponatremia Hypercalcemia Diarrhea Renal calculi Constipation by delayed colonic transit GERD (gastroesophageal reflux disease) UTI (urinary tract infection) Villous adenoma of colon Insomnia Raynauds disease Anxiety Surgical History History of bronchoscopy History of tonsillectomy Family History Father Medical history unknown Mother Dementia Alzheimers disease Mental health disorder Brother Leukemia Sister Medical history unknown Social History Household Members: None Household Members Other:: long-term Housing: Apartment Housing Other:: Leah Elkins prior to admission. Do you presently have visiting nurse or other home services: No Alcohol intake: former Patient Tobacco Use Status: Former Tobacco user Tobacco use type: Cigarette e-Cigarette/Vaping Use: Never Used Second Hand Smoke Exposure: No Advance Directives Date on File: 11/23/22 service: No Current occupational status: retired Cognitive needs: No Hearing needs: No Vision needs: Yes Review of Systems Const All systems reviewed & are unremarkable except as noted in HPI and below Physical Exam Extrem Other: Right hip: Incision clean, dry and intact. No erythema or drainage. Mild discomfort with ROM of hip and hip flexion. RLE has no open wound or abrasion. No area of tenderness. Calf supple, nontender. NVI. ? Results Reviewed Results Reviewed: Xrays were obtained in the office today and personally reviewed by me of the right hip show intact hardware with stable fracture pattern Assessment & Plan Assessment & Plan (1) Closed fracture of right hip: Code(s): S72.001A - Fracture of unspecified part of neck of right femur, initial encounter for closed fracture Category: Medical Plan Chuy removed today, steri strips applied. She will continue with physical therapy to work on gait training, balance and strengthening. I did explain that the time frame for healing and what I anticipate is 3 months where she feels confident to stand and weight bear on her leg. I would like to see her back in 4 weeks with x-rays, sooner if needed. Orders: Orders XR hip RT min 2V Today M25.551 - Pain in right hip XR femur RT 2V Today S72.142A - Displaced intertrochanteric fracture of left femur, initial encounter for closed fracture Patient Instructions: Scribed for Tej Holbrook PA-C, by Doug Hoffman medical assisting program director, on 10/25/2023 at 10:00 AM EST.? I, Tej Holbrook PA-C, have personally reviewed and agree with the information entered by the scribe. Coding Level of Care Code Global (55999) Diagnoses Closed fracture of right hip S72.001A
== END 2023-10-25 11:23 | disposition home or self-care (01) ==
PROVIDERS: PCP Internal Medicine; Visit Provider Physician Assistant
DX: S72.001A Fracture of unspecified part of neck of right femur, initial encounter for closed fracture (principal)
CPT/HCPCS: 99024

== ENCOUNTER 2023-10-25 14:52 | Outpatient (REF) | payer MEDICARE, MEDICAID, SELFPAY ==
--- NOTE | ~2023-10-25 | XR_ITS ---
EXAMINATION: XR FEMUR, RIGHT CLINICAL INFORMATION: Displaced intertrochanteric fracture COMPARISON: Prior imaging dated 10/12/2023 and 10/11/2023 TECHNIQUE: AP and lateral views of the right femur were obtained. FINDINGS: Femoral nail and screw fixation of previously noted displaced intertrochanteric fracture no change in alignment compared with the preoperative spot images obtained during orthopedic fixation of the fracture. Improved alignment compared with the preoperative exam. There is some lateral displacement of the distal fragment. Skin denzel in place. Surrounding bone and soft tissues unremarkable. XR/XR femur RT 2V IMPRESSION: Orthopedic fixation of intertrochanteric fracture with unchanged alignment compared with the previous intraoperative images of the fixation..
== END 2023-10-25 14:53 | disposition home or self-care (01) ==
LOC: HO.HOSX 14:52
PROVIDERS: Visit Provider Physician Assistant
DX: M25.551 Pain in right hip (principal); S72.001D Fracture of unspecified part of neck of right femur, subsequent encounter for closed fracture with routine healing; X58.XXXD Exposure to other specified factors, subsequent encounter
CPT/HCPCS: 73552; 99212

== ENCOUNTER 2024-01-04 10:49 | Outpatient (AMB) | payer MEDICARE, MEDICAID, SELFPAY ==
[2024-01-04 10:53] VITALS: BP 102/60; PULSE 76; O2SAT 94
--- NOTE | 2024-01-04 10:53 | MHC.PC.OV ---
Vital Signs 01/04/24 10:53 Height 5 ft BMI Reason not done Patient refused/unable BP 102/60 Blood Pressure Location Lt brachial Position Sitting Pulse 76 Pulse Source Pulse Oximeter Pulse Oximetry (%) 94 Oxygen Delivery Method Room Air Intake Visit Reasons: [facility] 12/24 Allergies No Known Allergies Allergy (Verified 10/25/23 10:47) Tobacco use date assessed: 01/04/24 Fall risk assessment: 1 Fall in past year Last assessed Fall Risk: 01/04/24 Dental Screening Dental Screen Date: 01/04/24 Did you have a dental visit in the last 12 months?: Yes Did you have a dental problem in the last 6 months where you did not have access to dental care?: No Was dental information given to patient?: Patient has dentist HPI HPI Comments History of Present Illness Details 73 y/o female who presents to the clinic today for HDF. [facility] [place] [facility] and discharged home 12/25/23. She is S/P right Hip IM Nail surgery 10/12/23. [facility]. She is now home with GUN PERFORATOR LOADER services and Homecare nurses. She will be starting PT sometime this week (? 01/05/24). Per her GUN PERFORATOR LOADER today, Pt has not been doing much on her own. GUN PERFORATOR LOADER needs to completely carry her to from bed, unable to stand or walk even with a walker. Pt reports pain with any activity. She is currently using Oxycodone (prescribed by Surgery) and she has ran out of this. Pt very anxious and worried today, because she has become dependent on this medication. Reports that Acetaminophen and Ibuprofen do not work at all. She is also asking for refills of Lorazepam and Temazepam. Pt also needs Briefs, due to incontinence. Pt has Stage 1 pressure ulcer coccyx region and asking for skin barrier dressing. GUN PERFORATOR LOADER is asking for her hours to be increased, since she is doing a lot more for the patient. She is currently receiving 5 hours daily. [facility] Medical History Recurrent Clostridioides difficile diarrhea External hemorrhoids Epidermal inclusion cyst White coat syndrome with high blood pressure but without hypertension Dry eyes Hyponatremia Hypercalcemia Diarrhea Renal calculi Constipation by delayed colonic transit GERD (gastroesophageal reflux disease) UTI (urinary tract infection) Villous adenoma of colon Insomnia Raynauds disease Anxiety Surgical History History of bronchoscopy History of tonsillectomy Family History Father Medical history unknown Mother Dementia Alzheimers disease Mental health disorder Brother Leukemia Sister Medical history unknown Social History Household Members: None Household Members Other:: assisted Housing: Apartment Housing Other:: Leah Elkins prior to admission. Do you presently have visiting nurse or other home services: No Alcohol intake: former Patient Tobacco Use Status: Former Tobacco user Tobacco use type: Cigarette e-Cigarette/Vaping Use: Never Used Second Hand Smoke Exposure: No Advance Directives Date on File: 11/23/22 service: No Current occupational status: retired Cognitive needs: No Hearing needs: No Vision needs: Yes Questionnaire Thrive Questionnaire Date Thrive assessed: 10/12/23 RACHEL-7 AMB Questionnaire RACHEL-7 Date RACHEL - 7 assessed: 03/09/23 Source: Developed by Drs. Julian Mas, Karina Acevedo, Mook Hogue and colleagues, with an educational bernie from [employer]. Review of Systems Const All systems reviewed & are unremarkable except as noted in HPI and below Physical exam (Primary Care) Vital Signs: Last Vital Signs Pulse 76 01/04/24 10:53 BP 102/60 01/04/24 10:53 Pulse Ox 94 01/04/24 10:53 Oxygen Delivery Method Room Air 01/04/24 10:53 Tobacco/Smoking Status: Tobacco use Status Tobacco use date assessed 01/04/24 01/04/24 10:54 Patient Tobacco Use Status Former Tobacco user 01/04/24 10:54 Tobacco use type Cigarette 01/04/24 10:54 e-Cigarette/Vaping Use Never Used 01/04/24 10:54 Thrive Assessment: Date of Thrive Assessment Date Thrive assessed 10/12/23 01/04/24 10:54 Const General: no acute distress; No comfortable Nutritional Appearance: cachectic and underweight Orientation/consciousness: patient oriented x3 Limitations: wheelchair Resp Effort & Inspection: normal respiratory effort and able to speak in complete sentences Auscultation: clear to auscultation bilaterally, no crackles, no rales, no rhonchi and no wheezes Cardio Heart sounds: S1 normal heart sound present and S2 normal heart sound present Skin General skin exam: erythema Neuro General: patient oriented x3 and moves all extremities Psych Speech and movement: Normal speech and movement present Vital Signs: Last Vital Signs Pulse 76 01/04/24 10:53 BP 102/60 01/04/24 10:53 Pulse Ox 94 01/04/24 10:53 Oxygen Delivery Method Room Air 01/04/24 10:53 Const General: no acute distress; No comfortable Nutritional Appearance: cachectic and underweight Orientation/consciousness: patient oriented x3 Limitations: wheelchair Resp Effort & Inspection: normal respiratory effort and able to speak in complete sentences Auscultation: clear to auscultation bilaterally, no crackles, no rales, no rhonchi and no wheezes Cardio Heart sounds: S1 normal heart sound present and S2 normal heart sound present Skin Other: Stage 1 Pressure Ulcer coccxy region. Tender to palpation and erythema. General skin exam: erythema Neuro General: patient oriented x3 and moves all extremities Psych Speech and movement: Normal speech and movement present Assessment and Plan Assessment & Plan (1) Closed fracture of right hip: Code(s): S72.001A - Fracture of unspecified part of neck of right femur, initial encounter for closed fracture Qualifiers: Encounter type: initial encounter Qualified Code(s): S72.001A - Fracture of unspecified part of neck of right femur, initial encounter for closed fracture Plan: Continue f/u with Ortho as scheduled Continue with PT as scheduled. Messaged PCP regarding medication refills,and GUN PERFORATOR LOADER hours. F/U with PCP as scheduled or PRN. Coding Level of Care Code Est Pt Level 4 (66392) Diagnoses Closed fracture of right hip, initial encounter S72.001A Encounter type: initial encounter Comment 20 minutes spent on hospital notes review
== END 2024-01-04 12:53 | disposition home or self-care (01) ==
PROVIDERS: PCP Internal Medicine; Visit Provider Nurse Practitioner Family
DX: S72.001A Fracture of unspecified part of neck of right femur, initial encounter for closed fracture (principal); F33.0 Major depressive disorder, recurrent, mild
CPT/HCPCS: 99214

== ENCOUNTER → 2024-01-10 23:59 | Outpatient (BNV) | payer MEDICARE, MEDICAID, SELFPAY | PROVIDERS: PCP Internal Medicine; Visit Provider Internal Medicine | DX: E44.0 Moderate protein-calorie malnutrition (principal); F41.1 Generalized anxiety disorder; I10 Essential (primary) hypertension | CPT/HCPCS: G0180 ==

== ENCOUNTER 2024-01-19 12:12 | Outpatient (REF) | payer MEDICARE, MEDICAID, SELFPAY ==
--- NOTE | ~2024-01-19 | XR_ITS ---
EXAMINATION: XR FEMUR, RIGHT CLINICAL INFORMATION: Displaced intertrochanteric fracture. COMPARISON: Prior radiographs, most recently 10/25/2023. TECHNIQUE: AP and lateral views of the right femur were obtained. FINDINGS: There is bony demineralization. There is stable alignment of a proximal right femoral intertrochanteric fracture status-post ORIF. The vertical fracture line is faintly visible, with partial osseous bridging. There is an intact intramedullary lainey, distal fixator screw and proximal femoral compression screw. No hardware failure or loosening is seen. The articulations at the hip and knee are preserved. No focal soft tissue swelling, gas or foreign body is seen. XR/XR femur RT 2V IMPRESSION: There is stable alignment of the vertebral intertrochanteric fracture of the proximal right femur. The fracture line is only faintly visible. Electronically signed by: Aaron Haldey MD 02/16/2024 05:52 PM EDT
== END 2024-01-19 12:13 | disposition home or self-care (01) ==
LOC: HO.HOSX 12:12
PROVIDERS: Absent Provider Internal Medicine; PCP Internal Medicine; Visit Provider Physician Assistant
DX: S72.142A Displaced intertrochanteric fracture of left femur, initial encounter for closed fracture (principal); A04.72 Enterocolitis due to Clostridium difficile, not specified as recurrent
CPT/HCPCS: 73552; 99212

== ENCOUNTER 2024-01-19 12:30 | Outpatient (AMB) | payer MEDICARE, MEDICAID, SELFPAY ==
--- NOTE | 2024-01-19 12:48 | A.OFFVIS_ITS ---
Intake Visit Reasons: PO-right hip s/p IMN with NE 10/12/23 Intake Note: Lisa a 73 year old female who presents today in a wheel chair with her PRODUCT SAFETY COORDINATOR for a post operative visit s/p right hip IMN on 10/12/23 NE. Patient reports ongoing pain, she is unable to attend PT due to her pain. She was prescribed tramadol from her PCP however this rx is pending due to prior authorization. Allergies No Known Allergies Allergy (Verified 01/19/24 13:27) Medication List - Last Reconciled 01/19/24 by Tej Holbrook PA-C [adult diapers briefs As directed] atorvastatin 40 mg PO BEDTIME 90 days [bed rail As directed] leno.stocking,knee,reg,smal As directed enoxaparin 40 mg (0.4 mL) subcut Q24H 30 days famotidine 20 mg PO BID@0900,1200 [foot inserts As directed] lorazepam 1 mg PO BID PRN 30 days metoprolol succinate ER 25 mg PO DAILY mirtazapine 7.5 mg PO DAILY 30 days pantoprazole 40 mg PO DAILY@0630 90 days quetiapine 25 mg PO BEDTIME quetiapine 25 mg (1/2 x 50 mg) PO BEDTIME PRN 30 days temazepam 15 mg PO BEDTIME PRN 30 days tramadol 50 mg PO Q8H PRN 30 days vancomycin 125 mg PO Q48H HPI HPI PO-right hip s/p IMN with NE 10/12/23: Details: 73-year-old female who returns to the office today with her PRODUCT SAFETY COORDINATOR for post-op right hip IMN, 10/12/[address] Leos. She states she has ongoing pain in her hip and makes her unable to attend physical therapy due to the pain. Her pain makes it unable to get in and out of the bed. She was seen by her PCP who prescribed her tramadol that has been pending due to prior authorization. [facility] Medical History Recurrent Clostridioides difficile diarrhea External hemorrhoids Epidermal inclusion cyst White coat syndrome with high blood pressure but without hypertension Dry eyes Hyponatremia Hypercalcemia Diarrhea Renal calculi Constipation by delayed colonic transit GERD (gastroesophageal reflux disease) UTI (urinary tract infection) Villous adenoma of colon Insomnia Raynauds disease Anxiety Surgical History History of bronchoscopy History of tonsillectomy Family History Father Medical history unknown Mother Dementia Alzheimers disease Mental health disorder Brother Leukemia Sister Medical history unknown Social History Household Members: None Household Members Other:: fpc Housing: Apartment Housing Other:: Leah Elkins prior to admission. Do you presently have visiting nurse or other home services: No Alcohol intake: former Patient Tobacco Use Status: Former Tobacco user Tobacco use type: Cigarette e-Cigarette/Vaping Use: Never Used Second Hand Smoke Exposure: No Advance Directives Date on File: 11/23/22 service: No Current occupational status: retired Cognitive needs: No Hearing needs: No Vision needs: Yes Review of Systems Const All systems reviewed & are unremarkable except as noted in HPI and below Physical Exam Extrem Other: Right hip: Incision well healed. No erythema or drainage. No discomfort with ROM of hip and hip flexion. Results Reviewed Results Reviewed: Xrays were obtained in the office today and personally reviewed by me of the right hip show intact hardware with stable fracture pattern Assessment & Plan Assessment & Plan (1) Closed fracture of right hip: Code(s): S72.001A - Fracture of unspecified part of neck of right femur, initial encounter for closed fracture Category: Medical Qualifiers: Encounter type: initial encounter Qualified Code(s): S72.001A - Fracture of unspecified part of neck of right femur, initial encounter for closed fracture Plan We discussed continuing to work with physical therapy for strengthening, gait training and overall conditioning for ADLs. At this point preoperatively she was significantly deconditioned which has made postoperative care difficult with pain and difficulty ambulating without assistance. She has no pain with movement over the surgical site. I did give her a prescription of tramadol as she was having difficulty getting this filled by her PCP. I explained this would likely be a one-time prescription to help with physical therapy. If symptoms persist or worsen, patient will contact the office, otherwise follow-up as needed. Orders: Orders XR femur RT 2V Today S72.142A - Displaced intertrochanteric fracture of left femur, initial encounter for closed fracture Medications: Refilled tramadol 50 mg PO Q8H PRN 90 tabs 0RF Pain 30 days Patient Instructions: Scribed for Tej Holbrook PA-C, by Doug Hoffman medical advisor, on 01/19/2024 at 12:30 PM EST.? I, Tej Holbrook PA-C, have personally reviewed and agree with the information entered by the scribe. Coding Level of Care Code Est Pt Level 3 (22550) Diagnoses Closed fracture of right hip, initial encounter S72.001A Encounter type: initial encounter
== END 2024-01-19 13:48 | disposition home or self-care (01) ==
PROVIDERS: PCP Internal Medicine; Visit Provider Physician Assistant
DX: S72.001A Fracture of unspecified part of neck of right femur, initial encounter for closed fracture (principal)
CPT/HCPCS: 99214

== ENCOUNTER 2024-01-19 13:26 | Outpatient (AMB) | payer MEDICARE, MEDICAID, SELFPAY ==
--- NOTE | 2024-01-19 13:27 | MHC.OFFVIS ---
Vital Signs 01/19/24 14:03 Pulse 90 Pulse Source Pulse Oximeter Temp 99.1 F Temp Source Oral Pulse Oximetry (%) 97 Intake Visit Reasons: follow up c diff Allergies No Known Allergies Allergy (Verified 01/19/24 14:04) HPI HPI follow up c diff: Details: She is doing well. She has no diarrhea. She hasnt taken po Vancomycin anymore. [facility] Medical History Recurrent Clostridioides difficile diarrhea External hemorrhoids Epidermal inclusion cyst White coat syndrome with high blood pressure but without hypertension Dry eyes Hyponatremia Hypercalcemia Diarrhea Renal calculi Constipation by delayed colonic transit GERD (gastroesophageal reflux disease) UTI (urinary tract infection) Villous adenoma of colon Insomnia Raynauds disease Anxiety Surgical History History of bronchoscopy History of tonsillectomy Family History Father Medical history unknown Mother Dementia Alzheimers disease Mental health disorder Brother Leukemia Sister Medical history unknown Social History Household Members: None Household Members Other:: group home Housing: Apartment Housing Other:: Leah Elkins prior to admission. Do you presently have visiting nurse or other home services: No Alcohol intake: former Patient Tobacco Use Status: Former Tobacco user Tobacco use type: Cigarette e-Cigarette/Vaping Use: Never Used Second Hand Smoke Exposure: No Advance Directives Date on File: 11/23/22 service: No Current occupational status: retired Cognitive needs: No Hearing needs: No Vision needs: Yes Review of Systems Const All systems reviewed & are unremarkable except as noted in HPI and below Physical Exam Vital Signs: Last Vital Signs Temp 99.1 F 01/19/24 14:03 Pulse 90 01/19/24 14:03 Pulse Ox 97 01/19/24 14:03 Const General: cooperative Orientation/consciousness: patient oriented x3 HEENT Head: Yes normal to inspection Mouth: Normal oral and palatal mucosa present Eyes General: appearance normal, both eyes and all related structures Pupils: Equal, round and reactive pupils present Resp Effort & Inspection: normal respiratory effort Cardio Rate: regular rate Rhythm: regular rhythm GI Palpation (GI): Soft to palpation and nontender General: Yes no CVA tenderness Back/Spine/Pelvis Back: no CVA tenderness Skin General skin exam: no rashes or lesions noted Neuro General: patient oriented x3 Cranial nerves: Yes CN's II-XII intact bilaterally and Yes Equal, round and reactive pupils present Extrem General: Yes normal to inspection Psych Appearance: grossly normal Assessment & Plan Assessment & Plan (1) C. difficile colitis: Comment: She has had Cdiff Code(s): A04.72 - Enterocolitis due to Clostridium difficile, not specified as recurrent Category: Medical Plan: She has no further antibiotics. See prn need. Coding Level of Care Code Est Pt Level 3 (08254) Diagnoses C. difficile colitis A04.72
[2024-01-19 14:03] VITALS: PULSE 90; TEMP 37.3; O2SAT 97
== END 2024-01-19 14:14 | disposition home or self-care (01) ==
LOC: HO.HID 13:26
PROVIDERS: PCP Internal Medicine; Visit Provider Internal Medicine
DX: A04.72 Enterocolitis due to Clostridium difficile, not specified as recurrent (principal)
CPT/HCPCS: 99213

== ENCOUNTER 2024-01-24 08:27 | Outpatient (REF) | payer MEDICARE, MEDICAID, SELFPAY ==
[2024-01-24 08:46] LABS: MANUAL DIFF FLAG NO
[2024-01-24 09:33] LABS: Basophils Absolute Auto 0.1 X10*3/uL (0.0-0.2); Basophils Percent Auto 0.6 % (0-2); Eosinophils Absolute Auto 0.3 X10*3/uL (0.0-0.4); Hematocrit 41.6 % (37.0-47.0); Hemoglobin 12.7 g/dl (12.0-16.0); Imm Gran Abs Auto 0.07 X10*3/uL (0.00-0.03); Imm Gran Pct Auto 0.7 % (0.0-0.4); Lymphocytes Absolute Auto 2.7 X10*3/uL (1.2-4.9); Lymphocytes Percent Auto 28.4 % (20-40); Mean Corpuscular HGB Conc 30.5 g/dl (31.0-35.0); Mean Corpuscular Hemoglobin 26.5 pg (27.0-33.0); Mean Corpuscular Volume 86.7 fL (80.0-98.0); Mean Platelet Volume 9.7 fL (9.4-12.3); Monocytes Absolute Auto 0.8 X10*3/uL (0.1-1.2); Monocytes Percent Auto 8.1 % (2-11); Neutrophils Absolute Auto 5.7 x10*3/uL (2.0-8.3); Neutrophils Percent Auto 59.2 % (45-73); Platelet Count 338 X10*3/uL (160-400); White Blood Count 9.6 X10*3/uL (4.8-10.8)
[2024-01-24 10:26] LABS: Parathyroid Hormone Intact 18.9 pg/mL (8.7-77.1)
[2024-01-24 10:43] LABS: Vitamin B12 668 pg/mL (200-900)
[2024-01-25 14:28] LABS: Calcium, Ionized 5.8 mg/dL (4.7-5.5)
[2024-01-29 14:08] LABS: Vitamin D 25-OH, D2 <4 ng/mL; Vitamin D 25-OH, D3 41 ng/mL; Vitamin D 25-OH, Total 41 ng/mL (30-100)
== END 2024-01-24 08:28 | disposition home or self-care (01) ==
LOC: HO.LAB 08:27
PROVIDERS: PCP Internal Medicine; Visit Provider Internal Medicine
DX: D64.9 Anemia, unspecified (principal); E55.9 Vitamin D deficiency, unspecified; E83.52 Hypercalcemia; E53.8 Deficiency of other specified B group vitamins
CPT/HCPCS: 36415; 80053; 80061; 82306; 82330; 82607; 82746; 83540; 83970; 84100; 85025

== ENCOUNTER 2024-02-29 12:39 | Inpatient (IN) | payer MEDICARE, MEDICAID, SELFPAY ==
[2024-02-29 12:57] VITALS: BP 116/68; PULSE 86; O2SAT 95; BMI 14.0
[2024-02-29 13:10] VITALS: BP 115/70; PULSE 87; RESP 18; TEMP 37; O2SAT 98
--- NOTE | 2024-02-29 13:36 | PC.NURSE ---
pt biba from home d/t increase in pain on worsening coccyx wound. upon ED arrival - a&ox4. vss and up to date. pt states she does not follow w/ wound care. SENIOR SPEECH PATHOLOGIST bedside stating that pt has limited amount of hours for workers to visit her home resulting in decreased repositioned and lack of ROM. pt states that she follows w/ PT to help w/ chronic contractions. pt verbalizes since hip surgery this past october, she has had limited achievement in performing ADLs. wound uncovered that was covered by SENIOR SPEECH PATHOLOGIST. deep golfball sized wound noted on coccyx. foul smelling odor noted. minimal white discharge noted. pt as well as SENIOR SPEECH PATHOLOGIST denies fever/chills. 20gIV placed in the left forearm - labs obtained/sent to lab. pt turned/repositioned. pillow placed to left hip to promote comfort. otherwise pt resting in no apparent distress. no sob/wob noted. respirations even/unlabored. plan of care ongoing. call goddard placed within reach.
[2024-02-29 14:17] LABS: Alanine Aminotransferase 16 U/L (0-31); Albumin Level 3.6 g/dL (3.5-5.0); Alkaline Phosphatase 125 U/L (39-117); Anion Gap 12 (12-20); Aspartate Amino Transferase 20 U/L (5-31); Bilirubin Total 0.2 mg/dL (0.0-1.0); Blood Urea Nitrogen 22 mg/dL (9-16); Calcium 10.3 mg/dL (8.4-10.2); Carbon Dioxide 22 mmol/L (22-29); Chloride 109 mmol/L (96-108); Creatinine Clr Calc Pharmacy 46.5; Estimated Glomerular Filt Rate > 60; Glucose Random 122 mg/dL (60-115); Potassium 4.5 mmol/L (3.3-5.1); Sodium 138 mmol/L (135-145); Total Protein 7.8 g/dL (6.5-8.0)
[2024-02-29 14:25] LABS: Erythrocyte Sedimentation Rate 80 MM/HR (0-20)
--- NOTE | 2024-02-29 14:26 | ED_ITS ---
HPI - General Adult General Chief complaint: Wound/Laceration Stated complaint: COCCYX WOUND/ULCER COMPLICATION PER EMS Time Seen by Provider: 02/29/24 13:23 Source: patient Mode of arrival: EMS Limitations: no limitations History of Present Illness HPI narrative: This is a 75-year-old woman with a past medical history who ambulates with a walker at baseline with malnutrition, stress-induced cardiomyopathy with reduced EF, Raynaud's phenomenon, GERD, mood disorder, C diff, status post IMN right hip 10/12/2023 who presents for evaluation of stage IV decubitus ulcer. Patient states that she has had a visiting nurse coming to her house a few times week and they saw her stage IV decubitus ulcer today and recommended she come to the emergency room for evaluation. She states no fevers or chills. She reports mild pain to touch. She states no back pain otherwise. She states no paresthesias. She states no abdominal pain, nausea or vomiting. She states no incontinence of urine or stool. She states no changes to bowel habits otherwise. She states no urinary retention or obstipation. She states that she has not been evaluated by a interior specialist for her ulcer. She states no chest pain or dyspnea. Related Data Home Medications ?Medication ?Instructions ?Recorded ?Confirmed quetiapine 50 mg tablet 25 mg PO BEDTIME 07/16/23 01/19/24 famotidine 20 mg tablet 20 mg PO BID@0900,1200 08/14/23 01/19/24 Previous Rx's ?Medication ?Instructions ?Recorded foot inserts #1 ea 12/04/21 lorazepam 1 mg tablet 1 mg PO BID PRN anxiety 30 days 01/04/24 #60 tabs quetiapine 50 mg tablet 25 mg (1/2 x 50 mg) PO BEDTIME PRN 01/04/24 Insomnia 30 days #15 tabs temazepam 15 mg capsule 15 mg PO BEDTIME PRN sleep 30 days 01/04/24 #30 caps bed rail #1 ea 01/05/24 adult diapers briefs #240 ea 01/06/24 atorvastatin 40 mg tablet 40 mg PO BEDTIME 90 days #90 tabs 01/06/24 metoprolol succinate 25 mg 25 mg PO DAILY #30 tabs 01/06/24 tablet,extended release 24 hr mirtazapine 7.5 mg tablet 7.5 mg PO DAILY 30 days #30 tabs 01/06/24 pantoprazole 40 mg tablet,delayed 40 mg PO DAILY@0630 90 days #90 01/06/24 release tabs tramadol 50 mg tablet 50 mg PO Q8H PRN Pain 30 days #90 02/28/24 tabs Allergies Allergy/AdvReac Type Severity Reaction Status Date / Time No Known Allergies Allergy Verified 02/29/24 12:59 Review of Systems 2 Review of Systems: ROS as per HPI PMFSH Past Medical History Medical History Recurrent Clostridioides difficile diarrhea External hemorrhoids Epidermal inclusion cyst White coat syndrome with high blood pressure but without hypertension Dry eyes Hyponatremia Hypercalcemia Diarrhea Renal calculi Constipation by delayed colonic transit GERD (gastroesophageal reflux disease) UTI (urinary tract infection) Villous adenoma of colon Insomnia Raynauds disease Anxiety Surgical History History of bronchoscopy History of tonsillectomy Family History Family History Father Medical history unknown Mother Dementia Alzheimers disease Mental health disorder Brother Leukemia Sister Medical history unknown Social History Social History Household Members: None Household Members Other:: [facility] Housing: Apartment Housing Other:: [facility] prior to admission. Do you presently have visiting nurse or other home services: No Alcohol intake: former Patient Tobacco Use Status: Former Tobacco user Tobacco use type: Cigarette Smoked in Last 30 Days: No e-Cigarette/Vaping Use: Never Used Second Hand Smoke Exposure: No Use of substances other than those prescribed or required for medical reasons: No Advance Directives: Yes Advance Directives on File: Yes Advance Directives Date on File: 11/23/22 Do you have a plan to hurt others: No Plan service: No Current occupational status: retired Cognitive needs: No Hearing needs: No Vision needs: Yes Physical Exam ED Vital Signs: Vital Signs - 24 hr 02/29/24 13:10 Temperature 98.6 F Pulse Rate 87 Respiratory Rate 18 Blood Pressure 115/70 Pulse Oximetry 98 Oxygen Delivery Method Room Air BMI result Body Mass Index 14.0 Gen: NAD, frail appearing, AOx3 HEENT: NCAT, EOMI, normal conjunctiva CV: RRR, 2+ bilateral DP/PT pulses Pulm: CTAB, no increased work of breathing GI: Soft, NTND, no rebound, guarding or rigidity Neuro: Grossly non focal, sensation intact light touch to bilateral lower extremities, equal and symmetrical strength to bilateral lower extremities MSK: No midline vertebral tenderness to palpation, Approximate 3.5 cm stage IV decubitus ulcer with purulence and mild circumferential erythema Medications Administered Discontinued Medications Generic Name Dose Route Start Last Admin Trade Name Freq PRN Reason Stop Dose Admin Lactated Ringer's 1,000 mls @ 999 mls/hr 02/29/24 14:23 02/29/24 14:42 Lr IV 02/29/24 15:23 999 mls/hr .Q1H1M ONE Administration Vancomycin HCl 1,000 mg/ 270 mls @ 270 mls/hr 02/29/24 14:24 02/29/24 15:17 Sodium Chloride IV 02/29/24 15:23 Not Given POSTOP ONE Piperacillin Sod/Tazobactam 50 mls @ 100 mls/hr 02/29/24 14:24 02/29/24 15:23 Sod 3.375 gm/ Sodium Chloride IV 02/29/24 14:53 Infused ONCE ONE Infusion Vancomycin HCl 1,000 mg/ 270 mls @ 270 mls/hr 02/29/24 14:45 02/29/24 15:17 Sodium Chloride IV 02/29/24 15:44 270 mls/hr ONCE ONE Administration Lorazepam 0.5 mg 02/29/24 14:23 02/29/24 14:41 Lorazepam 2 Mg/Ml Vial IVPUSH 02/29/24 14:24 0.5 mg STAT STA Administration Medical Decision Making Medical Decision Making [facility] Narrative: Differential diagnosis includes, but isn't limited to cellulitis, soft tissue infection, infected ulcer. Patient reports taking Ativan as needed at home for anxiety and requests some during her evaluation here in the emergency room. Patient is provided 0.5 mg IV Ativan for anxiolysis given that it is a home medication with good effect on re- examination. 1434 - the patient is afebrile and hemodynamically stable on room air. Exam as above with stage IV decubitus ulcer. Patient is afebrile and hemodynamically stable on room air. She does not trigger for sepsis. Regardless, given concern for localized infection will obtain blood cultures, lactic acid as well as wound cultures. Patient is provided broad-spectrum antibiotics with vancomycin and Zosyn. I have discussed with hr shared services consultant general surgeon, Dr. Forman, who is provided photo of the picture via [employer] and states that patient can probably do with some bedside debridement and then dressing changes if patient gets admitted. She does not anticipate operative management otherwise at this time. RN bedside bladder scan demonstrates no urinary retention with less than 70 cc I reviewed and interpreted patient's labs as below. I discussed patient's case and management with admitting hospitalist, Merlene Vazquez, and patient is subsequently admitted in stable and improved condition for further workup and management. Admission/Observation Consideration of admission/observation: Escalation of care including admission/observation considered Consult Healthcare Provider Management of the patient was discussed with: Hospitalist and Corporate Executive (General surgery (as above)) Lab Data MDM Lab Attestation statement: I reviewed the patient's lab results. I reviewed and interpreted patient's labs, which is notable for stable anemia with hemoglobin 11.2, thrombocytosis with a platelet count of 556, ESR 80, mild hypercalcemia at 10.3 (patient has been given IV fluids). Otherwise, blood work including lactic acid are reassuring. 02/29/24 15:20 02/29/24 13:30 Labs: Lab Results 02/29/24 02/29/24 02/29/24 Range/Units 13:30 14:45 15:20 WBC 9.9 (4.8-10.8) X10*3/uL RBC 4.24 (4.20-5.50) X10*6/uL Hgb 11.2 L (12.0-16.0) g/dl Hct 35.7 L (37.0-47.0) % MCV 84.2 (80.0-98.0) fL MCH 26.4 L (27.0-33.0) pg MCHC 31.4 (31.0-35.0) g/dl RDW 15.6 (11.0-16.0) % Plt Count 556 H D (160-400) X10*3/uL MPV 8.6 L (9.4-12.3) fL Immature Gran % (Auto) 0.5 H (0.0-0.4) % Neut % (Auto) 62.5 (45-73) % Lymph % (Auto) 25.0 (20-40) % [place] % (Auto) 9.0 (2-11) % Eos % (Auto) 2.6 (0-4) % Baso % (Auto) 0.4 (0-2) % Lymph # (Auto) 2.5 (1.2-4.9) X10*3/uL [place] # (Auto) 0.9 (0.1-1.2) X10*3/uL Eos # (Auto) 0.3 (0.0-0.4) X10*3/uL Baso # (Auto) 0.0 (0.0-0.2) X10*3/uL Abs Immat Gran (auto) 0.05 H (0.00-0.03) X10*3/uL Absolute Neuts (auto) 6.2 (2.0-8.3) x10*3/uL Absolute Nucleated RBC 0.000 (0.0-0.012) X10*3/uL Nucleated RBC % (auto) 0.0 (0.0-0.2) /100WBC ESR 80 H (0-20) MM/HR Sodium 138 (135-145) mmol/L Potassium 4.5 (3.3-5.1) mmol/L Chloride 109 H (96-108) mmol/L Carbon Dioxide 22 (22-29) mmol/L Anion Gap 12 (12-20) BUN 22 H (9-16) mg/dL Creatinine 0.63 (0.5-1.4) mg/dL Estim Creat Clear Calc 46.5 Estimated GFR > 60 Random Glucose 122 H (60-115) mg/dL Lactic Acid 1.9 (0.5-2.0) mmol/L Calcium 10.3 H D (8.4-10.2) mg/dL Total Bilirubin 0.2 (0.0-1.0) mg/dL AST 20 (5-31) U/L ALT 16 (0-31) U/L Alkaline Phosphatase 125 H (39-117) U/L Total Creatine Kinase 35 (26-140) U/L Total Protein 7.8 (6.5-8.0) g/dL Albumin 3.6 (3.5-5.0) g/dL Discharge Plan Discharge Clinical Impression: Decubitus ulcer, Hypercalcemia, Other thrombocytosis, Anemia, ESR raised Patient Disposition: Admitted As Inpatient Print Language: Tristanian
[2024-02-29] MEDS: LORazepam 2 MG/ML VIAL 0.5 MG IVPUSH (14:41)
[2024-02-29] MEDS: Lactated Ringers 1,000 ML 999 ML IV (14:42)
[2024-02-29] MEDS: Piperacillin Sodium/Tazobactam 3.375 GM in 0.9 % Sodium Chloride 50 ML IV (14:47)
--- NOTE | 2024-02-29 14:50 | PC.NURSE ---
labs obtained/sent to lab. abx/IVF administered per provider order.
[2024-02-29 15:07] LABS: Lactic Acid 1.9 mmol/L (0.5-2.0)
[2024-02-29] MEDS: vancomycin HCL 1,000 MG in 0.9 % Sodium Chloride 250 ML 270 MG IV (15:17)
[2024-02-29 15:26] LABS: MANUAL DIFF FLAG NO
[2024-02-29 15:28] LABS: Basophils Percent Auto 0.4 % (0-2); Eosinophils Absolute Auto 0.3 X10*3/uL (0.0-0.4); Eosinophils Percent Auto 2.6 % (0-4); Hematocrit 35.7 % (37.0-47.0); Hemoglobin 11.2 g/dl (12.0-16.0); Imm Gran Abs Auto 0.05 X10*3/uL (0.00-0.03); Imm Gran Pct Auto 0.5 % (0.0-0.4); Lymphocytes Absolute Auto 2.5 X10*3/uL (1.2-4.9); Mean Corpuscular HGB Conc 31.4 g/dl (31.0-35.0); Mean Corpuscular Hemoglobin 26.4 pg (27.0-33.0); Mean Corpuscular Volume 84.2 fL (80.0-98.0); Mean Platelet Volume 8.6 fL (9.4-12.3); Monocytes Absolute Auto 0.9 X10*3/uL (0.1-1.2); Neutrophils Absolute Auto 6.2 x10*3/uL (2.0-8.3); Neutrophils Percent Auto 62.5 % (45-73); Platelet Count 556 X10*3/uL (160-400); Red Blood Count 4.24 X10*6/uL (4.20-5.50); Red Cell Distribution Width 15.6 % (11.0-16.0); White Blood Count 9.9 X10*3/uL (4.8-10.8)
--- NOTE | 2024-02-29 16:06 | P.HPHOSP_ITS ---
History of Present Illness Date of Service: 02/29/24 Chief Complaint: wound 75-year-old woman presenting to the ER for evaluation of sacral decubitus ulcer. Patient had a fall and had a hip fracture in October, she had a nailing procedure of the right hip and was sent to rehab. She reported during her stay at rehab she did not have much physical therapy and has left her bed-bound since then. Sounds like she developed this decubitus ulcer from being in bed so frequently. She was seen by the visiting nurse who recommended she come to the ER for evaluation of infection to ulcer. Patient has denied any fever, chills, nausea, vomiting, diarrhea. She denied any paresthesias no incontinence of urine or stool. No white blood cell count or fever noted in the ER, stable vital signs. She received IV fluids, vancomycin, Zosyn. Will admit for further management and treatment of sacral decubitus ulcer. Review of Systems 2 Review of Systems: Denies any recent fever chills or decrease in appetite respiratory denies any shortness of breath coverage production cardiovascular is adjustment of any PND or edema gastrointestinal denies any dysphagia abdominal pain nausea vomiting or diarrhea genitourinary denies any dysuria frequency or hematuria musculoskeletal denies any joint pain or swelling neuropsych denies any weakness or seizures all other systems reviewed are negative [facility] Medical History Recurrent Clostridioides difficile diarrhea External hemorrhoids Epidermal inclusion cyst White coat syndrome with high blood pressure but without hypertension Dry eyes Hyponatremia Hypercalcemia Diarrhea Renal calculi Constipation by delayed colonic transit GERD (gastroesophageal reflux disease) UTI (urinary tract infection) Villous adenoma of colon Insomnia Raynauds disease Anxiety Family History Father Medical history unknown Mother Dementia Alzheimers disease Mental health disorder Brother Leukemia Sister Medical history unknown Surgical History History of bronchoscopy History of tonsillectomy Social History Household Members: None Household Members Other:: half-way Housing: Apartment Housing Other:: [facility] prior to admission. Do you presently have visiting nurse or other home services: No Alcohol intake: former Patient Tobacco Use Status: Former Tobacco user Tobacco use type: Cigarette Smoked in Last 30 Days: No e-Cigarette/Vaping Use: Never Used Second Hand Smoke Exposure: No Use of substances other than those prescribed or required for medical reasons: No Advance Directives: Yes Advance Directives on File: Yes Advance Directives Date on File: 11/23/22 Do you have a plan to hurt others: No Plan service: No Current occupational status: retired Cognitive needs: No Hearing needs: No Vision needs: Yes Meds Allergies Allergy/AdvReac Type Severity Reaction Status Date / Time No Known Allergies Allergy Verified 02/29/24 12:59 Home Medications ?Medication ?Instructions ?Recorded ?Confirmed ?Last Taken ?Type quetiapine 50 mg tablet 25 mg PO BEDTIME 07/16/23 01/19/24 10/10/23 History famotidine 20 mg tablet 20 mg PO BID@0900,1200 08/14/23 01/19/24 10/11/23 History Physical Exam 2 Vital Signs and Narrative: Vital Signs: Last Vital Signs Temp 98.6 F 02/29/24 13:10 Pulse 87 02/29/24 13:10 Resp 18 02/29/24 13:10 BP 115/70 02/29/24 13:10 Pulse Ox 98 02/29/24 13:10 O2 Del Method Room Air 02/29/24 13:10 BMI result Body Mass Index 14.0 Appearing in no acute distress head is normocephalic atraumatic eyes pupils are PERRLA sclera is anicteric mouth throat mucous membranes are intact and moist neck is supple no lymphadenopathy, no JVD noted lung sounds are clear to auscultation heart regular rate rhythm, clear S1, S2 positive bowel sounds, abdomen is soft, nontender neuro patient is alert x3, no focal deficits unstageable pressure wound sacral decubitus ulcer Results Labs 02/29/24 15:20 02/29/24 13:30 Labs: Laboratory Results - last 24 hr 02/29/24 02/29/24 02/29/24 13:30 14:45 15:20 MCV 84.2 MCH 26.4 L MCHC 31.4 RDW 15.6 Plt Count 556 H D MPV 8.6 L Immature Gran % (Auto) 0.5 H Neut % (Auto) 62.5 Lymph % (Auto) 25.0 [place] % (Auto) 9.0 Eos % (Auto) 2.6 Baso % (Auto) 0.4 Lymph # (Auto) 2.5 [place] # (Auto) 0.9 Eos # (Auto) 0.3 Baso # (Auto) 0.0 Abs Immat Gran (auto) 0.05 H Absolute Neuts (auto) 6.2 Absolute Nucleated RBC 0.000 Nucleated RBC % (auto) 0.0 ESR 80 H Anion Gap 12 Estim Creat Clear Calc 46.5 Estimated GFR > 60 Random Glucose 122 H Lactic Acid 1.9 Calcium 10.3 H D Total Bilirubin 0.2 AST 20 ALT 16 Alkaline Phosphatase 125 H Total Creatine Kinase 35 Total Protein 7.8 Albumin 3.6 Assessment and Plan (1) Decubitus ulcer: Status: Acute Plan 73 year old women admitted with unstageable sacral pressure injury Pressure Ulcer unstageable Gen surg consult> bedside debridement, no abx frequent repositioning wound nurse consultation Severe malnutrition. 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
--- NOTE | 2024-02-29 16:12 | PC.NURSE ---
pt verbalizing hx of urinary retention and not being able to urinate x 6 hours. bladder scan performed displaying 68mL. MD notified/aware. pt turned/repositioned to comfort.
--- NOTE | 2024-02-29 17:25 | PC.NURSE ---
pt transported to hospital bed to promote comfort. pt turned/repositioned.
[2024-02-29] MEDS: Heparin Sodium,Porcine 5,000 UNIT/ML VIAL 5000 UNIT SUBCUT (18:02)
--- NOTE | 2024-02-29 18:21 | PHA.MEDREC ---
Pharmacy Consult ? Medication Reconciliation Pharmacy has completed the medication reconciliation. Spoke to patient and health care proxy Miguelina over the phone to confirm medication list. Verified with Miguelina multiple times that patient takes quetiapine 25 mg bid. Miguelina also said that patient only took metoprolol, pantoprazole and famotidine today 02/29/24. Everything else was last taken 02/28/24.
--- NOTE | 2024-02-29 19:03 | PC.NURSE ---
received report from Angelica Carbajal, assume care of pt at this time
--- NOTE | 2024-02-29 20:19 | MHC.EDTECH ---
pt was repositioned from left lateral to right later for more comfort, call goddard within reach
[2024-02-29] MEDS: LORazepam 1 MG TABLET PO (20:40)
[2024-02-29] MEDS: QUEtiapine Fumarate 25 MG TABLET PO (20:40)
[2024-02-29] MEDS: Atorvastatin Calcium 40 MG TABLET PO (20:41)
[2024-02-29] MEDS: traMADoL HCL 50 MG TABLET PO (21:25)
[2024-02-29] MEDS: Mirtazapine 15 MG TABLET PO (21:25)
[2024-02-29 23:03] VITALS: BP 88/48; PULSE 78; RESP 20; TEMP 36.4; O2SAT 98
--- NOTE | 2024-02-29 23:12 | PM.CNGS ---
History of Present Illness Consult details Consult date: 02/29/24 Requesting physician: Merlene Vazquez Narrative: The pt is a 73 year old female who had a broken hip repaired earlier this summer and then had issues at rehab where she was not getting adequate PT and movement and developed a sacral decub ulcer stage 4. She comes in now for care for this and is being admitted to [facility]. [facility] Past Medical History Medical History Recurrent Clostridioides difficile diarrhea External hemorrhoids Epidermal inclusion cyst White coat syndrome with high blood pressure but without hypertension Dry eyes Hyponatremia Hypercalcemia Diarrhea Renal calculi Constipation by delayed colonic transit GERD (gastroesophageal reflux disease) UTI (urinary tract infection) Villous adenoma of colon Insomnia Raynauds disease Anxiety Family History Family History Father Medical history unknown Mother Dementia Alzheimers disease Mental health disorder Brother Leukemia Sister Medical history unknown Surgical History Surgical History History of bronchoscopy History of tonsillectomy Social History Social History Household Members: None Household Members Other:: senior care Housing: Apartment Housing Other:: [facility]kins prior to admission. Do you presently have visiting nurse or other home services: No Alcohol intake: former Patient Tobacco Use Status: Former Tobacco user Tobacco use type: Cigarette Smoked in Last 30 Days: No e-Cigarette/Vaping Use: Never Used Second Hand Smoke Exposure: No Use of substances other than those prescribed or required for medical reasons: No Advance Directives: Yes Advance Directives on File: Yes Advance Directives Date on File: 11/23/22 Do you have a plan to hurt others: No Plan Nutrition Risks: No Nutritional Risk service: No Current occupational status: retired Cognitive needs: No Hearing needs: No Vision needs: Yes Meds Allergies Allergy/AdvReac Type Severity Reaction Status Date / Time No Known Allergies Allergy Verified 02/29/24 12:59 Active Medications: Current Medications Acetaminophen (Acetaminophen 325 Mg Tablet) 650 mg PO Q6H PRN PRN Reason: Pain, Mild (Pain Scale 1-3), fever or headache Atorvastatin Calcium (Atorvastatin Calcium 40 Mg Tablet) 40 mg PO BEDTIME [facility] Last Admin: 02/29/24 20:41 Dose: 40 mg Calcium Carbonate (Calcium Carbonate 750 Mg Tab.Chew) 750 mg PO Q4H PRN PRN Reason: Heartburn Famotidine (Famotidine 20 Mg Tablet) 20 mg PO BID@0900,1200 [facility] Heparin Sodium (Porcine) (Heparin Sodium,Porcine 5,000 Unit/Ml Vial) 5,000 unit SUBCUT Q12H [facility] Last Admin: 02/29/24 18:02 Dose: 5,000 unit Lorazepam (Lorazepam 1 Mg Tablet) 1 mg PO BID PRN PRN Reason: anxiety Last Admin: 02/29/24 20:40 Dose: 1 mg Magnesium Hydroxide (Milk Of Magnesia 30 Ml Oral.Susp) 30 ml PO DAILY PRN PRN Reason: Constipation Melatonin (Melatonin 3 Mg Tablet) 6 mg PO BEDTIME PRN PRN Reason: Insomnia Metoprolol Succinate (Metoprolol Succinate Er 25 Mg Tab.Er.24h) 25 mg PO DAILY [facility]; Protocol Omeprazole (Omeprazole 20 Mg Capsule.Dr) 20 mg PO DAILY@0630 [facility] Ondansetron HCl (Ondansetron Hcl 4 Mg/2 Ml Vial) 4 mg IVPUSH Q8H PRN PRN Reason: Nausea and Vomiting Quetiapine Fumarate (Quetiapine Fumarate 25 Mg Tablet) 25 mg PO BID [facility] Last Admin: 02/29/24 20:40 Dose: 25 mg Sodium Chloride (0.9 % Sodium Chloride Flush 3 Ml Syringe) 3 ml IVFLUSH QSHIFT [facility] Temazepam (Temazepam 15 Mg Capsule) 15 mg PO BEDTIME PRN PRN Reason: sleep Home Medications ?Medication ?Instructions ?Recorded ?Confirmed ?Last Taken ?Type quetiapine 50 mg tablet 25 mg PO BID 07/16/23 02/29/24 02/28/24 History famotidine 20 mg tablet 20 mg PO BID@0900,1200 08/14/23 02/29/24 02/29/24 History Physical Exam Vital Signs: Vital Signs: Last Vital Signs Temp 97.5 F 02/29/24 23:03 Pulse 78 02/29/24 23:03 Resp 20 02/29/24 23:03 BP 88/48 L 02/29/24 23:03 Pulse Ox 98 02/29/24 23:03 O2 Del Method Room Air 02/29/24 23:03 BMI result Body Mass Index 14.0 Const: General: cooperative Nutritional Appearance: cachectic and malnourished Skin: Other: sacral area with necrotic and wet gangrenous tissue - cavity to just above the presacral fascia- bone not directly involved [id number] Results Labs 02/29/24 15:20 02/29/24 13:30 Labs: Abnormal lab results 02/29/24 02/29/24 Range/Units 13:30 15:20 Hgb 11.2 L (12.0-16.0) g/dl Hct 35.7 L (37.0-47.0) % MCH 26.4 L (27.0-33.0) pg Plt Count 556 H D (160-400) X10*3/uL MPV 8.6 L (9.4-12.3) fL Immature Gran % (Auto) 0.5 H (0.0-0.4) % Abs Immat Gran (auto) 0.05 H (0.00-0.03) X10*3/uL ESR 80 H (0-20) MM/HR Chloride 109 H (96-108) mmol/L BUN 22 H (9-16) mg/dL Random Glucose 122 H (60-115) mg/dL Calcium 10.3 H D (8.4-10.2) mg/dL Alkaline Phosphatase 125 H (39-117) U/L Short CBC 02/29/24 Range/Units 15:20 WBC 9.9 (4.8-10.8) X10*3/uL Hgb 11.2 L (12.0-16.0) g/dl Hct 35.7 L (37.0-47.0) % Plt Count 556 H D (160-400) X10*3/uL BMP 02/29/24 13:30 Sodium 138 Potassium 4.5 Chloride 109 H Carbon Dioxide 22 BUN 22 H Creatinine 0.63 Calcium 10.3 H D Cardiac Enzymes 02/29/24 Range/Units 13:30 Total Creatine Kinase 35 (26-140) U/L Liver Function 02/29/24 Range/Units 13:30 Total Bilirubin 0.2 (0.0-1.0) mg/dL AST 20 (5-31) U/L ALT 16 (0-31) U/L Alkaline Phosphatase 125 H (39-117) U/L Albumin 3.6 (3.5-5.0) g/dL All other labs normal. Assessment and Plan (1) Decubitus ulcer: Status: Acute Plan 73 year old female with stage 4 decubitus ulcer and malnutriton s/p hip fracture repair a few months ago - plan to do bid dressing changes and offload. the area is not infected per se and debridments as necessary will help eventual wound vac cab be considered but pt needs to have better nutrition if any hope for this to heal. Procedures Date of Service Date of Service: 02/29/24
[2024-03-01] MEDS: 0.9 % Sodium Chloride Flush 3 ML SYRINGE IVFLUSH ×3 (00:26→20:45)
[2024-03-01 05:18] LABS: MANUAL DIFF FLAG NO
[2024-03-01 05:31] LABS: Basophils Percent Auto 0.4 % (0-2); Eosinophils Absolute Auto 0.3 X10*3/uL (0.0-0.4); Eosinophils Percent Auto 2.6 % (0-4); Hematocrit 30.8 % (37.0-47.0); Hemoglobin 9.9 g/dl (12.0-16.0); Imm Gran Abs Auto 0.03 X10*3/uL (0.00-0.03); Imm Gran Pct Auto 0.3 % (0.0-0.4); Lymphocytes Absolute Auto 1.8 X10*3/uL (1.2-4.9); Lymphocytes Percent Auto 18.4 % (20-40); Mean Corpuscular HGB Conc 32.1 g/dl (31.0-35.0); Mean Corpuscular Hemoglobin 26.8 pg (27.0-33.0); Mean Corpuscular Volume 83.2 fL (80.0-98.0); Mean Platelet Volume 8.8 fL (9.4-12.3); Monocytes Absolute Auto 0.7 X10*3/uL (0.1-1.2); Monocytes Percent Auto 7.6 % (2-11); Neutrophils Absolute Auto 6.8 x10*3/uL (2.0-8.3); Neutrophils Percent Auto 70.7 % (45-73); Platelet Count 553 X10*3/uL (160-400); Red Cell Distribution Width 15.3 % (11.0-16.0); White Blood Count 9.6 X10*3/uL (4.8-10.8)
[2024-03-01 05:34] LABS: Anion Gap 12 (12-20); Blood Urea Nitrogen 20 mg/dL (9-16); Calcium 9.7 mg/dL (8.4-10.2); Carbon Dioxide 20 mmol/L (22-29); Chloride 111 mmol/L (96-108); Creatinine Clr Calc Pharmacy 49.6; Estimated Glomerular Filt Rate > 60; Glucose Random 100 mg/dL (60-115); Potassium 3.4 mmol/L (3.3-5.1); Sodium 140 mmol/L (135-145)
--- NOTE | 2024-03-01 06:03 | PC.NURSE ---
took wet diaper off of pt, darnell in placed, changed the wet to dry dressing and put a foam dressing on for help with cushion. Tried to turn pt to the left side, and she refused, stating, that it hurt to lay on that side. Pt readjusted for comfort.
[2024-03-01 08:10] VITALS: BP 121/65; PULSE 82; RESP 16; TEMP 36.7; O2SAT 94
--- NOTE | 2024-03-01 08:20 | PC.NURSE ---
patient resting quietly in hospital bed, alert and oriented x3. patient refused breakfast tray this morning, only wanted coffee. patient repositioned in bed, covered in blankets as requested, patient like lights dimmed. respirations equal and unlabored.
[2024-03-01] MEDS: Omeprazole 20 MG CAPSULE.DR PO (08:58)
[2024-03-01] MEDS: QUEtiapine Fumarate 25 MG TABLET PO ×2 (08:58→19:31)
[2024-03-01] MEDS: Famotidine 20 MG TABLET PO ×2 (08:58→13:43)
[2024-03-01] MEDS: LORazepam 1 MG TABLET PO ×2 (08:58→20:41)
--- NOTE | 2024-03-01 10:12 | P.PNGS_ITS ---
Subjective Subjective Date of Service: 03/01/24 Interval history: Describes multiple pains, including chronic back pain Asking about discharge to home Says she will be more comfortable at home Physical Exam 2 Vital Signs: Vital Signs: Last Vital Signs Temp 98.1 F 03/01/24 08:10 Pulse 82 03/01/24 08:10 Resp 16 03/01/24 08:10 BP 121/65 03/01/24 08:10 Pulse Ox 94 03/01/24 08:10 O2 Del Method Room Air 03/01/24 08:10 BMI result Body Mass Index 14.0 Const: Other: Very frail looking, cachectic General: no acute distress Resp: Effort & Inspection: normal respiratory effort Cardio: Rate: regular rate GI: Palpation (GI): Soft to palpation Back/Spine/Pelvis: Other: Sacral decubitus ulcer, clean, no pus, no evidence of spreading cellulitis Objective Data Active Medications Acetaminophen (Acetaminophen 325 Mg Tablet) 650 mg PO Q6H PRN PRN Reason: Pain, Mild (Pain Scale 1-3), fever or headache Atorvastatin Calcium (Atorvastatin Calcium 40 Mg Tablet) 40 mg PO BEDTIME [facility] Last Admin: 02/29/24 20:41 Dose: 40 mg Documented By: ANA Calcium Carbonate (Calcium Carbonate 750 Mg Tab.Chew) 750 mg PO Q4H PRN PRN Reason: Heartburn Famotidine (Famotidine 20 Mg Tablet) 20 mg PO BID@0900,1200 [facility] Last Admin: 03/01/24 08:58 Dose: 20 mg Documented By: TANA Heparin Sodium (Porcine) (Heparin Sodium,Porcine 5,000 Unit/Ml Vial) 5,000 unit SUBCUT Q12H [facility] Last Admin: 03/01/24 05:35 Dose: Not Given Documented By: ANA Non-Admin Reason: Patient Refused Lorazepam (Lorazepam 1 Mg Tablet) 1 mg PO BID PRN PRN Reason: anxiety Last Admin: 03/01/24 08:58 Dose: 1 mg Documented By: TANA Magnesium Hydroxide (Milk Of Magnesia 30 Ml Oral.Susp) 30 ml PO DAILY PRN PRN Reason: Constipation Melatonin (Melatonin 3 Mg Tablet) 6 mg PO BEDTIME PRN PRN Reason: Insomnia Omeprazole (Omeprazole 20 Mg Capsule.Dr) 20 mg PO DAILY@0630 [facility] Last Admin: 03/01/24 08:58 Dose: 20 mg Documented By: TANA Ondansetron HCl (Ondansetron Hcl 4 Mg/2 Ml Vial) 4 mg IVPUSH Q8H PRN PRN Reason: Nausea and Vomiting Quetiapine Fumarate (Quetiapine Fumarate 25 Mg Tablet) 25 mg PO BID [facility] Last Admin: 03/01/24 08:58 Dose: 25 mg Documented By: TANA Sodium Chloride (0.9 % Sodium Chloride Flush 3 Ml Syringe) 3 ml IVFLUSH QSHIFT [facility] Last Admin: 03/01/24 09:01 Dose: Not Given Documented By: TANA Non-Admin Reason: See Note Temazepam (Temazepam 15 Mg Capsule) 15 mg PO BEDTIME PRN PRN Reason: sleep Labs 03/01/24 04:29 03/01/24 04:29 Labs: Laboratory Results - last 24 hr 02/29/24 02/29/24 02/29/24 13:30 14:45 15:20 MCV 84.2 MCH 26.4 L MCHC 31.4 RDW 15.6 Plt Count 556 H D MPV 8.6 L Immature Gran % (Auto) 0.5 H Neut % (Auto) 62.5 Lymph % (Auto) 25.0 [place] % (Auto) 9.0 Eos % (Auto) 2.6 Baso % (Auto) 0.4 Lymph # (Auto) 2.5 [place] # (Auto) 0.9 Eos # (Auto) 0.3 Baso # (Auto) 0.0 Abs Immat Gran (auto) 0.05 H Absolute Neuts (auto) 6.2 Absolute Nucleated RBC 0.000 Nucleated RBC % (auto) 0.0 ESR 80 H Anion Gap 12 Estim Creat Clear Calc 46.5 Estimated GFR > 60 Random Glucose 122 H Lactic Acid 1.9 Calcium 10.3 H D Total Bilirubin 0.2 AST 20 ALT 16 Alkaline Phosphatase 125 H Total Creatine Kinase 35 Total Protein 7.8 Albumin 3.6 03/01/24 04:29 MCV 83.2 MCH 26.8 L MCHC 32.1 RDW 15.3 Plt Count 553 H MPV 8.8 L Immature Gran % (Auto) 0.3 Neut % (Auto) 70.7 Lymph % (Auto) 18.4 L [place] % (Auto) 7.6 Eos % (Auto) 2.6 Baso % (Auto) 0.4 Lymph # (Auto) 1.8 [place] # (Auto) 0.7 Eos # (Auto) 0.3 Baso # (Auto) 0.0 Abs Immat Gran (auto) 0.03 Absolute Neuts (auto) 6.8 Absolute Nucleated RBC 0.000 Nucleated RBC % (auto) 0.0 ESR Anion Gap 12 Estim Creat Clear Calc 49.6 Estimated GFR > 60 Random Glucose 100 Lactic Acid Calcium 9.7 Total Bilirubin AST ALT Alkaline Phosphatase Total Creatine Kinase Total Protein Albumin Microbiology Microbiology Results: Microbiology 02/29/24 14:46 Gram Stain - Final Decubitus Ulcer Routine Culture - Preliminary Culture in progress. Procedures Date of Service Date of Service: 03/01/24 Progress Note: A&P Assessment and plan (1) Decubitus ulcer: Status: Acute Assessment and Plan: Debridement at bedside done by Dr. Forman yesterday Wound clean Continue good wound care with daily wet-to-dry dressings We will need follow up with the Wound Clinic Nutrition support The rest of care as per the hospitalist service Time Spent With Patient Time: Total time managing care of this patient today ____ minutes. Quality Stroke Does the patient have a stroke diagnosis?: No VTE Prior VTE?: No VTE Risk Level:: Medical - moderate - high VTE Device Contraindication: Treatment Not Indicated VTE Drug Contraindication: N/A - Med Ordered
--- NOTE | 2024-03-01 11:06 | P.PNIM_ITS ---
Subjective Subjective Date of Service: 03/01/24 Interval History: Complaining of lower back pain, denies fever, no chills, tolerating diet, no other acute events overnight. Review of Systems All other system reviewed and are negative Physical Exam 2 Vital Signs: Vital Signs: Last Vital Signs Temp 98.1 F 03/01/24 08:10 Pulse 82 03/01/24 08:10 Resp 16 03/01/24 08:10 BP 121/65 03/01/24 08:10 Pulse Ox 94 03/01/24 08:10 O2 Del Method Room Air 03/01/24 08:10 BMI result Body Mass Index 14.0 Const: Other: General resting comfortably in no acute distress. Neck supple no JVD. CVS regular rate rhythm, Respiratory lungs clear to auscultation, no respiratory distress, no wheeze, no rhonchi. Gastrointestinal abdomen soft, non tender, bowel sounds audible. Extremities no edema. Neuro non focal Psych appropriate affect Objective Data Active Medications Acetaminophen (Acetaminophen 325 Mg Tablet) 650 mg PO Q6H PRN PRN Reason: Pain, Mild (Pain Scale 1-3), fever or headache Atorvastatin Calcium (Atorvastatin Calcium 40 Mg Tablet) 40 mg PO BEDTIME [facility] Last Admin: 02/29/24 20:41 Dose: 40 mg Documented By: ANA Calcium Carbonate (Calcium Carbonate 750 Mg Tab.Chew) 750 mg PO Q4H PRN PRN Reason: Heartburn Famotidine (Famotidine 20 Mg Tablet) 20 mg PO BID@0900,1200 [facility] Last Admin: 03/01/24 08:58 Dose: 20 mg Documented By: TANA Heparin Sodium (Porcine) (Heparin Sodium,Porcine 5,000 Unit/Ml Vial) 5,000 unit SUBCUT Q12H [facility] Last Admin: 03/01/24 05:35 Dose: Not Given Documented By: ANA Non-Admin Reason: Patient Refused Lorazepam (Lorazepam 1 Mg Tablet) 1 mg PO BID PRN PRN Reason: anxiety Last Admin: 03/01/24 08:58 Dose: 1 mg Documented By: TANA Magnesium Hydroxide (Milk Of Magnesia 30 Ml Oral.Susp) 30 ml PO DAILY PRN PRN Reason: Constipation Melatonin (Melatonin 3 Mg Tablet) 6 mg PO BEDTIME PRN PRN Reason: Insomnia Omeprazole (Omeprazole 20 Mg Capsule.Dr) 20 mg PO DAILY@0630 [facility] Last Admin: 03/01/24 08:58 Dose: 20 mg Documented By: TANA Ondansetron HCl (Ondansetron Hcl 4 Mg/2 Ml Vial) 4 mg IVPUSH Q8H PRN PRN Reason: Nausea and Vomiting Quetiapine Fumarate (Quetiapine Fumarate 25 Mg Tablet) 25 mg PO BID [facility] Last Admin: 03/01/24 08:58 Dose: 25 mg Documented By: TANA Sodium Chloride (0.9 % Sodium Chloride Flush 3 Ml Syringe) 3 ml IVFLUSH QSHIFT [facility] Last Admin: 03/01/24 09:01 Dose: Not Given Documented By: TANA Non-Admin Reason: See Note Temazepam (Temazepam 15 Mg Capsule) 15 mg PO BEDTIME PRN PRN Reason: sleep Labs 03/01/24 04:29 03/01/24 04:29 Labs: Laboratory Results - last 24 hr 02/29/24 02/29/24 02/29/24 13:30 14:45 15:20 MCV 84.2 MCH 26.4 L MCHC 31.4 RDW 15.6 Plt Count 556 H D MPV 8.6 L Immature Gran % (Auto) 0.5 H Neut % (Auto) 62.5 Lymph % (Auto) 25.0 [place] % (Auto) 9.0 Eos % (Auto) 2.6 Baso % (Auto) 0.4 Lymph # (Auto) 2.5 [place] # (Auto) 0.9 Eos # (Auto) 0.3 Baso # (Auto) 0.0 Abs Immat Gran (auto) 0.05 H Absolute Neuts (auto) 6.2 Absolute Nucleated RBC 0.000 Nucleated RBC % (auto) 0.0 ESR 80 H Anion Gap 12 Estim Creat Clear Calc 46.5 Estimated GFR > 60 Random Glucose 122 H Lactic Acid 1.9 Calcium 10.3 H D Total Bilirubin 0.2 AST 20 ALT 16 Alkaline Phosphatase 125 H Total Creatine Kinase 35 Total Protein 7.8 Albumin 3.6 03/01/24 04:29 MCV 83.2 MCH 26.8 L MCHC 32.1 RDW 15.3 Plt Count 553 H MPV 8.8 L Immature Gran % (Auto) 0.3 Neut % (Auto) 70.7 Lymph % (Auto) 18.4 L [place] % (Auto) 7.6 Eos % (Auto) 2.6 Baso % (Auto) 0.4 Lymph # (Auto) 1.8 [place] # (Auto) 0.7 Eos # (Auto) 0.3 Baso # (Auto) 0.0 Abs Immat Gran (auto) 0.03 Absolute Neuts (auto) 6.8 Absolute Nucleated RBC 0.000 Nucleated RBC % (auto) 0.0 ESR Anion Gap 12 Estim Creat Clear Calc 49.6 Estimated GFR > 60 Random Glucose 100 Lactic Acid Calcium 9.7 Total Bilirubin AST ALT Alkaline Phosphatase Total Creatine Kinase Total Protein Albumin Microbiology Microbiology Results: Microbiology 02/29/24 14:46 Gram Stain - Final Decubitus Ulcer Routine Culture - Preliminary Culture in progress. Assessment and Plan (1) Decubitus ulcer: Status: Acute (2) Malnutrition: Status: Acute Plan 73 year old women admitted with unstageable sacral pressure injury Stage IV sacral decubitus ulcer Status post bedside debridement by General surgery No surrounding cellulitis will hold antibiotic. Continue wet to dry dressing as per General surgery Outpatient follow-up at wound clinic frequent repositioning, high-protein diet/loss mattress Severe malnutrition. BMI 14.0 stonecutter hand consultation Continue supplements Mental health On Seroquel 25 mg b.i.d. likely contributing to hypotension GERD PPI History of stress-induced cardiomyopathy Noted to have soft blood pressure will hold beta-blockers follow BP Chronic Normocytic anemia H&H stable/ above threshold for transfusion Hyperlipidemia Continue Lipitor DVT prophylaxis with heparin Full code In my clinical judgment patient will require continued inpatient hospitalization for management of stage IV decubitus ulcer and malnutrition. Quality Stroke Does the patient have a stroke diagnosis?: No VTE Prior VTE?: No VTE Risk Level:: Medical - moderate - high VTE Device Contraindication: Treatment Not Indicated VTE Drug Contraindication: N/A - Med Ordered
--- NOTE | 2024-03-01 11:27 | PC.NURSE ---
patient given snack, sitting up on edge of bed eating.
--- NOTE | 2024-03-01 12:31 | PC.NURSE ---
patient bedding changed due to incontinence, patient has personal shirt n refusing to change out of shirt that has urine on it due to skin condition and states she cant wear patient gown, patient educated on how this may effect wound care and hospitalization. wound dressing changed wet to dry and covered with abd pad. patient linens changed new pad in place, new purewick in place for incontinence. patient wound noted to be 5cm wound bed pink, with some sloughing.
--- NOTE | 2024-03-01 13:12 | MHC.CM.PN ---
PT REPORTS SHE LIVES ALONE AND HAS DAILY [employer] SHE IS ALSO ACTIVE WITH [facility] FOR SN AND PT SHE SAYS SHE HAS BEEN BED BOUND SINCE LEAVING [facility] BUT PT IS WORKING WITH HER ON THIS SHE REPORTS SHE HOPES SHE CAN BE CONNECTED TO THE WOUND CARE CLINIC UPON DC PT HAS A HCP ON FILE PCP: SHALONDA MCGOWAN IMM DELIVERED DCP: HOME, [facility] AND [employer] CAREGIVER TO TRANSPORT
[2024-03-01 15:05] VITALS: BP 111/61; PULSE 78; RESP 18; TEMP 37; O2SAT 99
[2024-03-01 15:47] VITALS: BMI 13.8
--- NOTE | 2024-03-01 15:55 | HO.WOUND ---
Wound Consult: Initial 73yr old?female admitted to [facility] on 02/29/24 - See progress notes and H&P for detailed history.? Wound consult placed for sacral wound.? Patient agreeable to assessment and photo documentation.? Chart review and discussion with patient - Dr. Forman performed bedside debridement and reassessed today by Dr. Lin - per his note no debridement performed at that time. He placed topical orders for Wet to dry dressings daily. Will defer topical orders to Dr. Lin. Bilateral heels assessed - light purple intact blanchable tissue. No pressure injury noted - patient reports she has Raynauds. Protect and off load for prevention. The patient is requesting a donut pillow for use at home - she was educated that donut pillows are not recommended due to impeding blood flow around the wound - she reports understanding. We discussed waffle cushion and she is agreeable to trying. Patient states she is in a wheelchair daily from am to after lunch - the chair does not have a special cushion per pt statement. She will likely benefit from specialty cushion to use when up to a chair. She should limit uninterrupted sit time to 1 hr. She is requesting brief use - as she reports the purewick is leaking - purewick adjusted no urine leaking noted at this time -purewick with mesh panties and peripad in place. Briefs are prohibited given her immobility and location of the stage 4 pressure injury to her sacrum. She reports understanding. Sacrum Etiology: Stage 4 Pressure Injury Present on Admission Goals of Treatment: ? Wet to dry dressing daily - off load pressure - defer to General Surgery topical orders. Recommendations: 1. Turn and Reposition every 2 hours and as needed for patient comfort.? Use pillows or wedges to support off loading positions. 2. Off Load all bony prominences with use of pillows and heel boots if needed.? Apply Preventative foams where needed. ?Elevate heels off of bed surface with pillows. 3. Monitor for incontinence and moisture control, use barrier creams when needed for prevention and treatment. Purewick in place - do not use brief. 4. Provide adequate and supplemental nutrition.? 5. Order low air loss mattress. 6. When applicable maintain blood glucose levels per Providers order. 7. Sacrum - Cleanse and irrigate with NS, pat dry. Lightly pack wound bed with normal saline moist gauze roll, cover with dry gauze, ABD pad. Change daily. Re-consult wound care Nurse for wound deterioration or wound changes.
[2024-03-01 19:15] VITALS: BP 141/65; PULSE 82; RESP 14; TEMP 36.6; O2SAT 98
[2024-03-01] MEDS: Atorvastatin Calcium 40 MG TABLET PO (19:30)
[2024-03-01] MEDS: Temazepam 15 MG CAPSULE PO (19:30)
[2024-03-01] MEDS: traMADoL HCL 50 MG TABLET PO (20:40)
[2024-03-02 04:00] VITALS: BP 111/56; PULSE 88; RESP 16; TEMP 36.7; O2SAT 95
[2024-03-02 08:23] VITALS: BP 128/90; PULSE 86; RESP 12; TEMP 36.4; O2SAT 94
[2024-03-02] MEDS: QUEtiapine Fumarate 25 MG TABLET PO (08:48)
[2024-03-02] MEDS: Famotidine 20 MG TABLET PO ×2 (08:49→12:05)
[2024-03-02] MEDS: 0.9 % Sodium Chloride Flush 3 ML SYRINGE IVFLUSH (08:49)
[2024-03-02] MEDS: Omeprazole 20 MG CAPSULE.DR PO (08:49)
[2024-03-02 08:55] VITALS: BP 117/68; PULSE 88
[2024-03-02] MEDS: Metoprolol Succinate ER 12.5 MG HALFTAB.ER.24H PO (08:55)
[2024-03-02] MEDS: LORazepam 1 MG TABLET PO (08:56)
[2024-03-02 10:30] VITALS: BMI 16.1
--- NOTE | 2024-03-02 10:39 | MHC.CLN ---
RE: CONSULT PT IS MODERATELY MALNOURISHED PT WITH MILDLY DEPLETED SUBCUTANEOUS FAT AND MUSCLE MASS WITH CHRONIC POOR PO INTAKE AND INCREASED NUTRITION NEEDS R/T PRESSURE INJURY HT USED FOR ASSESSMENT 5' PT IS FAMILIAR FROM PREVIOUS ADMISSIONS-DX MALNOURISHED 10/12/23 SEE ASSESSMENT POOR PO DIET RX: 2GM NA -RECOMMEND LIBERALIZING DIET TO INCREASE KCALS PT RECEIVING ENSURE TID TO PROMOTE WOUND HEALING SUPP PROVIDES 1050KCALS, 60G PROTEIN WILL ADD MAGIC CUP WITH MEALS TO INCREASE KCALS MONITOR PO INTAKE AND ENCOURAGE SUPPLEMENTS
--- NOTE | 2024-03-02 10:58 | PM.DS ---
DS: Providers Provider Date of Service: 03/02/24 Date of admission: 02/29/24 16:49 Date of discharge: 03/02/24 Primary care physician: Aniyah Mcgregor MD Consults: 02/29/24 16:30 Consult to General Surgery Routine Consulting Provider[place] [facility] Reason for consultation: decubitus ulcer Has provider been notified: Yes 02/29/24 16:52 Consult to Wound Care Routine Reason for consultation: decubitis ulcer DS: Diagnosis Discharge Diagnosis (1) Decubitus ulcer: Status: Acute (2) Malnutrition: Status: Acute DS: Summary Hospital Course Hospital Course: Date of Service: 02/29/24 Chief Complaint: wound 75-year-old woman presenting to the ER for evaluation of sacral decubitus ulcer. Patient had a fall and had a hip fracture in October, she had a nailing procedure of the right hip and was sent to rehab. She reported during her stay at rehab she did not have much physical therapy and has left her bed-bound since then. Sounds like she developed this decubitus ulcer from being in bed so frequently. She was seen by the visiting nurse who recommended she come to the ER for evaluation of infection to ulcer. Patient has denied any fever, chills, nausea, vomiting, diarrhea. She denied any paresthesias no incontinence of urine or stool. No white blood cell count or fever noted in the ER, stable vital signs. She received IV fluids, vancomycin, Zosyn. Will admit for further management and treatment of sacral decubitus ulcer. Hospital course: 73 year old women admitted with worsening sacral decubitus ulcer, patient admitted to medical floor with a diagnosis of Stage IV sacral decubitus ulcer, underwent bedside debridement by General surgery, no surrounding cellulitis was noted therefore did not require antibiotic treatment, surgery recommended wet-to-dry dressing daily, patient seen by wound nurse they agreed with dressing change and outpatient follow-up with wound clinic , patient is recommended to take high-protein diet, and continue physical therapy at home Moderate protein calorie malnutrition. BMI 14.0 recommended to continue protein supplements Mental health continue Seroquel. History of stress-induced cardiomyopathy, repeat echocardiogram showed resolution of cardiomyopathy patient noted to have soft blood pressures on metoprolol XL 25 mg daily, reduce dose to 12.5 mg daily and recommend outpatient follow-up with Cardiology and PCP for further dosage adjustment Chronic Normocytic anemia H&H remains stable, above threshold for transfusion. Hyperlipidemia Continue Lipitor. Time Attestation Discharge Coordination Time (in mins): 36 Quality: Safe Use of Opioids Does Pt have an Active Cancer Diagnosis on the Problem List?: No Quality: Stroke Does the patient have a stroke diagnosis?: No Physical Exam Vital Signs: Vital Signs: Last Vital Signs Temp 97.6 F 03/02/24 08:23 Pulse 88 03/02/24 08:55 Resp 12 03/02/24 08:23 BP 117/68 03/02/24 08:55 Pulse Ox 94 03/02/24 08:23 O2 Del Method Room Air 03/02/24 08:23 BMI result Body Mass Index 16.1 Const: Other: General resting comfortably in no acute distress. Neck supple no JVD. CVS regular rate rhythm, Respiratory lungs clear to auscultation, no respiratory distress, no wheeze, no rhonchi. Gastrointestinal abdomen soft, non tender, bowel sounds audible. Extremities no edema. Back stage IV sacral ulcer, appears clean with no evidence of surrounding cellulitis. Neuro non focal Psych appropriate affect DS: Data Data Completed and Pending Completed studies during hospitalization [Text1]: Procedures Reposition Right Upper Femur with Intramedullary Internal Fixation Device, Percutaneous Approach (10/11/23) Transfusion of Nonautologous Red Blood Cells into Peripheral Vein, Percutaneous Approach (10/11/23) Labs on day of discharge: Preliminary micro results at discharge 02/29/24 14:46 Routine Culture - Preliminary Decubitus Ulcer Culture in progress. 02/29/24 14:45 Blood Culture - Preliminary Blood - Venous No growth after 24 hours. 02/29/24 14:33 Blood Culture - Preliminary Blood - Venous No growth after 24 hours. Discharge Plan Discharge Anticipated Discharge Date/Time: 03/02/24 10:50 Patient Disposition: Home Health Service Discharge Diagnosis: Stage IV sacral decubitus ulcer Moderate malnutrition Referrals: Aniyah Smith MD [Primary Care Provider] - 1 Week Discharge Medications: Continued (DME) foot inserts See Rx Instructions .Route .MEDSUPPLY Qty: 1 0RF Rx Instructions: As directed temazepam 15 mg capsule 15 mg PO BEDTIME PRN (Reason: sleep) 30 Days Qty: 30 5RF lorazepam 1 mg tablet 1 mg PO BID PRN (Reason: anxiety) 30 Days Qty: 60 5RF (DME) bed rail See Rx Instructions .Route .MEDSUPPLY Qty: 1 0RF Rx Instructions: As directed atorvastatin 40 mg tablet 40 mg PO BEDTIME 90 Days Qty: 90 1RF pantoprazole 40 mg tablet,delayed release (DR/EC) 40 mg PO DAILY@0630 90 Days Qty: 90 1RF mirtazapine 7.5 mg tablet 7.5 mg PO DAILY 30 Days Qty: 30 5RF (DME) adult diapers briefs Small See Rx Instructions .Route .MEDSUPPLY Qty: 240 11RF Rx Instructions: As directed tramadol 50 mg tablet 50 mg PO Q8H PRN (Reason: Pain) 30 Days Qty: 90 0RF quetiapine 50 mg tablet 25 mg PO BID famotidine 20 mg tablet 20 mg PO BID@0900,1200 Changed metoprolol succinate 25 mg tablet extended release 24 hr 12.5 mg PO DAILY Qty: 30 5RF Discharge Orders: Discharge Order (Routine); Ordered 03/02/24 Ordered By: Heather Nielson Diet: Advance to usual diet Activity on Discharge: As tolerated Stand Alone Forms: Patient Portal Discharge page Print Language: Vietnamese Care Plan Goals: Stage IV sacral decubitus ulcer continue daily wet-to-dry dressing/take high-protein diet/frequent position change q.2 hours/use pillows or wedges support offloading positions Recommendations 1. Turn and Reposition every 2 hours and as needed for patient comfort.? Use pillows or wedges to support off loading positions. 2. Off Load all bony prominences with use of pillows and heel boots if needed.? Apply Preventative foams where needed. ?Elevate heels off of bed surface with pillows. 3. Monitor for incontinence and moisture control, use barrier creams when needed for prevention and treatment. Purewick in place - do not use brief. 4. Provide adequate and supplemental nutrition.? 5. Sacrum - Cleanse and irrigate with NS, pat dry. Lightly pack wound bed with normal saline moist gauze roll, cover with dry gauze, ABD pad. Change daily. Health Concerns: Cardiomyopathy resolved, noted to have soft blood pressure dose of Toprol-XL reduced to 12.5 mg daily Plan of Treatment: Outpatient follow-up with wound clinic Continue daily wet to dry dressings Outpatient follow-up with primary care physician Assessment: As above
--- NOTE | 2024-03-02 11:55 | MHC.CM.PN ---
Addendum entered by Margarita Polanco 03/02/24 15:00: SELVIN SPOKE TO A RN FROM THE [facility] SHE INDICATED THEY WOULD REVIEW PTS NOTES AND CONTACT PTS HCP, ADI PUTNAM [phone] TO SCHEDULE AN APPT Original Note: SELVIN MET WITH PT TO DISCUSS DC PLANNING PT AGAIN STATES HE WOULD LIKE TO BE CONNECTED TO THE WOUND CARE CLINIC CM CALLED THE CLINIC AND LEFT A VM REQUESTING A RETURN CALL CM SPOKE TO PTS CONTRACT TECHNICIAN, ADI, WHO IS AWARE A REFERRAL WILL BE MADE TO WOUND CARE AND THEY WILL CALL HER TO SCHEDULE APPTS SHE IS ALSO AWARE SHE WILL NEED TO COME IN FOR WOUND CARE TEACHING ADI WILL BRING PTS W/C AND CLOTHES AND BE BEDSIDE IN 15 MINUTES FOR TEACH PT WILL DC HOME TODAY WITH [facility] AND A REFERRAL [facility] CONTRACT TECHNICIAN TO TRANSPORT
--- NOTE | 2024-03-02 12:07 | P.F2F_ITS ---
Service Date Service Date: 03/02/24 Encounter Date of encounter: 03/02/24 Reasons for Services Signs and symptoms assessed: Sacral decubitus stage IV ulcer/malnutrition/deconditioning Reason for penitentiary: wound care and medication management Reason for physical therapy: home safety and mobility Homebound: Leaving the home is medically contraindicated at this time without the asist of a device and/or another person due th the listed conditions above and below. Reason homebound: bedbound/chairbound Certification: Based on the above findings, I certify that this patient is confined to the home and needs intermittent penitentiary care, physical therapy and/or speech therapy, or continues to need occupational therapy. The patient is under my care, and I have initiated the establishment of the plan of care. The patient will be followed by a physician who will periodically review the plan of care. Time Spent With Patient Time: Total time managing care of this patient today ____ minutes.
--- NOTE | 2024-03-02 13:11 | PC.NURSE ---
drsg changed ,HCP present at bedside,states understanding and able to do drsg cganges daily and as needed
== END 2024-03-02 13:24 | disposition home health service (06) | DRG 264 ==
LOC: HO.ED 16:02 → HO.EDOVER 16:54 → HO.S3 03-01 13:16
PROVIDERS: Admitting Provider Nurse Practitioner Acute Care; Emergency Provider Emergency Medicine; PCP Internal Medicine; Visit Provider Hospitalist
DX: I96 Gangrene, not elsewhere classified (principal); E43 Unspecified severe protein-calorie malnutrition; L89.154 Pressure ulcer of sacral region, stage 4; Z68.1 Body mass index [BMI] 19.9 or less, adult; I51.81 Takotsubo syndrome; E78.5 Hyperlipidemia, unspecified; E88.A Wasting disease (syndrome) due to underlying condition; D64.9 Anemia, unspecified; Z87.891 Personal history of nicotine dependence; Z79.899 Other long term (current) drug therapy
CPT/HCPCS: 36415; 80048; 80053; 82550; 83605; 85025; 85652; 87040; 87070; 87077; 87186; 87205; 99285; J1644; J2060; J2543; J3370; J7120

== ENCOUNTER → 2024-02-29 16:49 | Outpatient (BNV) | payer MEDICARE, MEDICAID, SELFPAY | PROVIDERS: Admitting Provider Nurse Practitioner Acute Care; Emergency Provider Emergency Medicine; PCP Internal Medicine; Visit Provider Nurse Practitioner Acute Care | DX: L89.154 Pressure ulcer of sacral region, stage 4 (principal); E43 Unspecified severe protein-calorie malnutrition | CPT/HCPCS: 99223; 99233; 99239; G0180 ==

== ENCOUNTER → 2024-02-29 16:49 | Outpatient (BNV) | payer MEDICARE, MEDICAID, SELFPAY | PROVIDERS: Admitting Provider Nurse Practitioner Acute Care; Emergency Provider Emergency Medicine; PCP Internal Medicine; Visit Provider Surgery | DX: L89.90 Pressure ulcer of unspecified site, unspecified stage (principal) | CPT/HCPCS: 99222; 99231 ==

== ENCOUNTER 2024-03-21 12:52 | Outpatient (AMB) | payer MEDICARE, MEDICAID, SELFPAY ==
--- NOTE | 2024-03-21 12:54 | A.OFFPC_ITS ---
Vital Signs 03/21/24 12:56 Height 5 ft BMI Reason not done Patient refused/unable BP 122/82 Blood Pressure Location Lt brachial Position Sitting Pulse 88 Pulse Source Pulse Oximeter Pulse Oximetry (%) 93 Oxygen Delivery Method Room Air Intake Visit Reasons: follow up pressure sore Shingle Grader Required: No Accompanied by: Self / Same As Patient Allergies No Known Allergies Allergy (Verified 03/21/24 13:10) Medication List - Last Reconciled 03/21/24 by Aniyah Mcgregor MD [adult diapers briefs As directed] atorvastatin 40 mg PO BEDTIME 90 days [bed rail As directed] famotidine 20 mg PO BID@0900,1200 [foot inserts As directed] lorazepam 1 mg PO BID PRN 30 days metoprolol succinate ER 12.5 mg (1/2 x 25 mg) PO DAILY mirtazapine 7.5 mg PO DAILY 30 days pantoprazole 40 mg PO DAILY@0630 90 days quetiapine 50 mg PO BID 30 days temazepam 15 mg PO BEDTIME PRN 30 days tramadol 50 mg PO Q8H PRN 30 days Tobacco use date assessed: 01/04/24 Dental Screening Dental Screen Date: 01/04/24 HPI HPI Comments History of Present Illness Details This is a 73-year-old female with mild recurrent major depression and insomnia that comes today accompanied by FACILITIES OFFICER complaining of to pressure ulcers that are 1 in sacrum and the other 1 next to each other. One is stage IV and the other 1 is stage II. She currently goes to wound clinic for this matter. She has been bed ridden since 10/11/2023 in which she fell causing a right hip fracture and had right hip fracture repair the next day. She went to rehab but has not been able to walk. Today she is in a wheelchair. She will benefit from a hospital bed to avoid pressure ulcers and because she can not move in a regular bed. I will refer her to physical therapy for her right hip pain. She has a VNA and they go once a week but has not gone last week. Depression stable with mirtazapine. Insomnia stable with temazepam. FORMERLY [facility] Medical History Recurrent Clostridioides difficile diarrhea External hemorrhoids Epidermal inclusion cyst White coat syndrome with high blood pressure but without hypertension Dry eyes Hyponatremia Hypercalcemia Diarrhea Renal calculi Constipation by delayed colonic transit GERD (gastroesophageal reflux disease) UTI (urinary tract infection) Villous adenoma of colon Insomnia Raynauds disease Anxiety Surgical History History of bronchoscopy History of tonsillectomy Family History Father Medical history unknown Mother Dementia Alzheimers disease Mental health disorder Brother Leukemia Sister Medical history unknown Social History Household Members: None Household Members Other:: retirement Housing: Apartment Housing Other:: Leah Elkins prior to admission. Do you presently have visiting nurse or other home services: No (HCP visits daily to assist pt) Alcohol intake: former Patient Tobacco Use Status: Former Tobacco user Tobacco use type: Cigarette e-Cigarette/Vaping Use: Never Used Second Hand Smoke Exposure: No Advance Directives Date on File: 11/23/22 service: No Current occupational status: retired Cognitive needs: No Hearing needs: No Vision needs: Yes Questionnaire Thrive Questionnaire Date Thrive assessed: 03/01/24 Are you currently unemployed and looking for a job?: No RACHEL-7 AMB Questionnaire RACHEL-7 Date RACHEL - 7 assessed: 03/09/23 Source: Developed by Drs. Julian Mas, Karina Acevedo, Mook Hogue and colleagues, with an educational bernie from [employer]. Review of Systems Const All systems reviewed & are unremarkable except as noted in HPI and below Eyes Reports no additional complaints, Denies change in vision and Denies other visual disturbances Card Denies chest pain at rest, Denies chest pain with activity, Denies edema, Denies irregular heart rhythm, Denies claudication, Denies dyspnea, Denies dyspnea on exertion, Denies orthopnea, Denies paroxysmal nocturnal dyspnea and Denies slow heart rate Resp Denies cough, Denies dyspnea and Denies dyspnea on exertion Musc Reports arthralgias Skin/Breast Reports skin ulcer Physical exam (Primary Care) Vital Signs: Last Vital Signs Pulse 88 03/21/24 12:56 BP 122/82 03/21/24 12:56 Pulse Ox 93 03/21/24 12:56 Oxygen Delivery Method Room Air 03/21/24 12:56 Tobacco/Smoking Status: Tobacco use Status Tobacco use date assessed 01/04/24 03/21/24 12:55 Patient Tobacco Use Status Former Tobacco user 03/21/24 12:55 Tobacco use type Cigarette 03/21/24 12:55 e-Cigarette/Vaping Use Never Used 03/21/24 12:55 Thrive Assessment: Date of Thrive Assessment Date Thrive assessed 03/01/24 03/21/24 12:55 Const Limitations: wheelchair Resp Effort & Inspection: normal respiratory effort Auscultation: clear to auscultation bilaterally Cardio Jugular venous distension: no JVD Rate: regular rate Rhythm: regular rhythm Heart sounds: S1 normal heart sound present and S2 normal heart sound present Skin Other: Stage 4 pressure ulcer 2 x 2 in sacrum and Stage 2 pressure ulcer in lumbar area right next to each other Coding Level of Care Code Est Pt Level 4 (08139) Complex EM visit Add On G2211 Diagnoses Stage II pressure ulcer of sacral region L89.152 Pressure injury of sacral region, stage 4 L89.154 Pressure injury location: sacral region Right hip pain M25.551 Mild recurrent major depression F33.0 Insomnia G47.00 Time Spent (min) 25 Assessment & Plan Assessment & Plan (1) Stage II pressure ulcer of sacral region: Code(s): L89.152 - Pressure ulcer of sacral region, stage 2 Category: Medical Plan: Continue wound clinic. Hospital bed ordered. (2) Stage 4 pressure ulcer: Code(s): L89.94 - Pressure ulcer of unspecified site, stage 4 Category: Medical Qualifiers: Pressure injury location: sacral region Qualified Code(s): L89.154 - Pressure ulcer of sacral region, stage 4 Plan: Hospital bed ordered. Continue wound clinic. (3) Right hip pain: Code(s): M25.551 - Pain in right hip Category: Medical Plan: Start physical therapy as outpatient. (4) Mild recurrent major depression: Code(s): F33.0 - Major depressive disorder, recurrent, mild Category: Medical Plan: Continue mirtazapine. (5) Insomnia: Code(s): G47.00 - Insomnia, unspecified Category: Medical Plan: Continue temazepam. Orders: Orders PT Evaluation and Treatment Today M25.551 - Pain in right hip Medications: New hospital bed As directed 1 ea 0RF L89.152 - Pressure ulcer of sacral region, stage 2, L89.94 - Pressure ulcer of unspecified site, stage 4, Z74.01 - Bed confinement status Refilled temazepam 15 mg PO BEDTIME 30 days PRN 30 caps 5RF sleep
[2024-03-21 12:56] VITALS: BP 122/82; PULSE 88; O2SAT 93
== END 2024-03-21 14:19 | disposition home or self-care (01) ==
PROVIDERS: PCP Internal Medicine; Visit Provider Internal Medicine
DX: L89.152 Pressure ulcer of sacral region, stage 2 (principal); L89.154 Pressure ulcer of sacral region, stage 4; M25.551 Pain in right hip; F33.0 Major depressive disorder, recurrent, mild; G47.00 Insomnia, unspecified; Z23 Encounter for immunization

== ENCOUNTER → 2024-03-21 12:52 | Outpatient (BNVA) | payer MEDICARE, MEDICAID, SELFPAY | PROVIDERS: PCP Internal Medicine; Visit Provider Internal Medicine | DX: L89.152 Pressure ulcer of sacral region, stage 2 (principal); L89.154 Pressure ulcer of sacral region, stage 4; G47.00 Insomnia, unspecified; F33.0 Major depressive disorder, recurrent, mild | CPT/HCPCS: 90471; 99212 ==

== ENCOUNTER 2024-04-05 21:30 | Inpatient (IN) | payer MEDICARE, MEDICAID, SELFPAY ==
--- NOTE | ~2024-04-05 | CT_ITS ---
EXAMINATION: CT ABDOMEN AND PELVIS WITH CONTRAST CLINICAL INFORMATION: Abdominal pain. Decubitus ulcers. COMPARISON: CT abdomen pelvis 08/20/2023. TECHNIQUE: Multidetector volumetric images were obtained from the superior aspect of the liver through the pubic symphysis following administration 85 mL of Omnipaque 350 intravenous contrast. Sagittal and coronal reformatted images were obtained on the technologist's workstation. Oral contrast: No This CT examination was performed using dose optimization techniques as appropriate, variously including the following: *Automated exposure control *Adjustment of mA and/or kV according to patient size (this includes techniques or standardized protocols for targeted exams where dose is matched to indication/reason for exam; i.e. extremities or head) *Use of iterative reconstruction technique DLP: 250 mGy-cm FINDINGS: LUNG BASES: Mild posterior dependent atelectasis of the lungs. LIVER, GALLBLADDER, AND BILIARY TREE: Small number of scattered subcentimeter rounded low-density foci which are too small to specifically characterize but most likely represent benign, simple cyst. The gallbladder is unremarkable with no evidence of radiopaque gallstones, gallbladder wall thickening, or obvious pericholecystic inflammatory changes. PANCREAS: Unremarkable. SPLEEN: Unremarkable. ADRENAL GLANDS: Normal in appearance KIDNEYS AND URETERS: An 8 mm x 4 mm calculus (900 Hounsfield units) is present in the interpolar segment of the left kidney. A 7 mm calculus is present inferiorly within the left kidney. A 3 mm tos BLADDER: Unremarkable. GASTROINTESTINAL TRACT: A moderate quantity of stool is present in the ascending colon. No colonic dilatation. Normal appearance of the terminal ileum. The appendix is not visualized and may be obscured from visualization by visceral crowding and a paucity of intraperitoneal fat. Finding which may represent partial visualization of a normal appendix is suggested on series 4 image 412. No intestinal dilatation or mural thickening noted. No free intraperitoneal gas identified. The stomach is collapsed. ABDOMINAL WALL: No significant hernia is appreciated. LYMPH NODES: Normal. VASCULAR: Moderate diffuse atherosclerosis. PELVIC VISCERA: Uterus is atrophic. No adnexal lesions noted. OSSEOUS STRUCTURES: Right femoral intramedullary lainey and nail are noted traversing the right intertrochanteric region. Chronic posttraumatic deformities of the inferior left and right pubic rami and superior left pubic ramus noted. Marked levoscoliosis of the thoracolumbar spine is present. A chronic appearing compression deformity of the T11 vertebral body is unchanged compared with 08/20/2023. A sacral decubitus ulcer is identified gas within the ulceration comes to within 2 mm proximity of the adjacent sacrum. No sacral erosions noted. The ulceration is new compared with 08/20/2023. CT/CT abdomen pelvis w IV con IMPRESSION: 1. Sacral decubitus ulcer new compared with 08/20/2023. Gas within the ulcer comes to within 2 mm proximity of the adjacent sacrum. No sacral erosions noted. Findings are consistent with at least a grade 3 sacral decubitus ulcer. Findings extend to within 2 mm proximity of the adjacent sacrum. Exposure of the sacrum would reclassify findings as a grade 4 decubitus ulcer. 2. Moderate quantity of stool within the ascending colon. No colonic dilatation. No free intraperitoneal gas. 3. Bilateral nonobstructing renal calculi. 4. Marked levoscoliosis of the thoracolumbar spine. 5. Chronic posttraumatic deformities of the pelvis and chronic T11 vertebral body unchanged compared with 08/20/2023. Electronically signed by: Abdirahman Weinberg MD 04/06/2024 03:04 AM EDT
[2024-04-05 22:05] VITALS: BP 116/52; PULSE 91; PULSE 96; RESP 20; TEMP 36.5; O2SAT 96; BMI 16.4
[2024-04-05 22:51] VITALS: TEMP 38.2
--- NOTE | 2024-04-05 22:52 | PC.NURSE ---
Pt a&ox3, no signs of distress. Pt reporting abd pain and pressure ulcer pain 10/10. Pt cleaned and changed out of wet brief and placed on purewick. Pt requested and given water with sponge for lips Plan of care ongoing.
[2024-04-05 23:12] LABS: MANUAL DIFF FLAG NO
[2024-04-05 23:14] LABS: Basophils Absolute Auto 0.1 X10*3/uL (0.0-0.2); Basophils Percent Auto 0.4 % (0-2); Eosinophils Absolute Auto 0.4 X10*3/uL (0.0-0.4); Eosinophils Percent Auto 2.5 % (0-4); Hematocrit 27.4 % (37.0-47.0); Hemoglobin 8.6 g/dl (12.0-16.0); Imm Gran Abs Auto 0.07 X10*3/uL (0.00-0.03); Imm Gran Pct Auto 0.5 % (0.0-0.4); Lymphocytes Absolute Auto 2.7 X10*3/uL (1.2-4.9); Lymphocytes Percent Auto 19.1 % (20-40); Mean Corpuscular HGB Conc 31.4 g/dl (31.0-35.0); Mean Corpuscular Hemoglobin 25.4 pg (27.0-33.0); Mean Corpuscular Volume 80.8 fL (80.0-98.0); Mean Platelet Volume 8.6 fL (9.4-12.3); Monocytes Absolute Auto 1.3 X10*3/uL (0.1-1.2); Monocytes Percent Auto 9.5 % (2-11); Neutrophils Absolute Auto 9.6 x10*3/uL (2.0-8.3); Platelet Count 542 X10*3/uL (160-400); Red Blood Count 3.39 X10*6/uL (4.20-5.50); Red Cell Distribution Width 16.3 % (11.0-16.0); White Blood Count 14.1 X10*3/uL (4.8-10.8)
[2024-04-05 23:28] LABS: Alanine Aminotransferase 65 U/L (0-31); Albumin Level 2.7 g/dL (3.5-5.0); Alkaline Phosphatase 146 U/L (39-117); Anion Gap 14 (12-20); Aspartate Amino Transferase 65 U/L (5-31); Bilirubin Total 0.2 mg/dL (0.0-1.0); Blood Urea Nitrogen 17 mg/dL (9-16); Calcium 9.2 mg/dL (8.4-10.2); Carbon Dioxide 20 mmol/L (22-29); Chloride 105 mmol/L (96-108); Creatinine Clr Calc Pharmacy 42.4; Estimated Glomerular Filt Rate > 60; Glucose Random 129 mg/dL (60-115); Potassium 3.7 mmol/L (3.3-5.1); Sodium 135 mmol/L (135-145); Total Protein 6.1 g/dL (6.5-8.0)
[2024-04-06] VITALS (24 sets, daily range): BP systolic 80–135; BP diastolic 43–69; PULSE 65–90; RESP 12–20; TEMP 36.1–37.7; O2SAT 94–99; BMI 17.6
--- NOTE | 2024-04-06 00:06 | ECG_ITS ---
Test Reason : HTN Blood Pressure : / mmHG Vent. Rate : 077 BPM Atrial Rate : 077 BPM P-R Int : 132 ms QRS Dur : 086 ms QT Int : 396 ms P-R-T Axes : 083 040 077 degrees QTc Int : 448 ms Normal sinus rhythm Normal ECG When compared with ECG of 12-OCT-2023 13:35, Premature ventricular complexes are no longer Present Nonspecific T wave abnormality no longer evident in Inferior leads Referred By: Edmundo Cowan Electronically Signed By:EKTA PA
--- NOTE | 2024-04-06 00:10 | ED.GENADULT ---
HPI - General Adult General Chief complaint: General Medical Stated complaint: back pain, bed sores, r abd pain Time Seen by Provider: 04/05/24 23:57 Source: patient History of Present Illness ED Provider: Chapo FRANK narrative: This is a 73-year-old female with multiple comorbidities presenting for lower back pain. Patient states that she has ulcers to her lower back and gluteal area that have been more painful as of late. She denies fevers, chills, nausea, vomiting, chest pain, shortness of breath, dysuria. Related Data Previous Rx's ?Medication ?Instructions ?Recorded foot inserts #1 ea 12/04/21 lorazepam 1 mg tablet 1 mg PO BID PRN anxiety 30 days 01/04/24 #60 tabs bed rail #1 ea 01/05/24 adult diapers briefs #240 ea 01/06/24 atorvastatin 40 mg tablet 40 mg PO BEDTIME 90 days #90 tabs 01/06/24 mirtazapine 7.5 mg tablet 7.5 mg PO DAILY 30 days #30 tabs 01/06/24 pantoprazole 40 mg tablet,delayed 40 mg PO DAILY@0630 90 days #90 01/06/24 release tabs metoprolol succinate 25 mg 12.5 mg (1/2 x 25 mg) PO DAILY #30 03/02/24 tablet,extended release 24 hr tabs quetiapine 50 mg tablet 50 mg PO BID 30 days #60 tabs 03/20/24 temazepam 15 mg capsule 15 mg PO BEDTIME PRN sleep 30 days 03/21/24 #30 caps famotidine 20 mg tablet 20 mg PO BID@0900,1200 90 days 03/27/24 #180 tabs tramadol 50 mg tablet 50 mg PO Q8H PRN Pain 30 days #90 03/27/24 tabs hospital bed #1 ea 03/30/24 Allergies Allergy/AdvReac Type Severity Reaction Status Date / Time No Known Allergies Allergy Verified 04/05/24 22:08 Review of Systems Review of Systems: Patient endorses lower back and gluteal pain Yes all other systems are reviewed and are negative REPLACED BY [facility] Past Medical History Attestation statement: The following information was validated with the patient. REPLACED BY [facility] Narrative: Anemia, decubitus ulcers, stress-induced cardiomyopathy Raynaud's phenomenon, GERD, mood disorder Source: old records reviewed Medical History Recurrent Clostridioides difficile diarrhea External hemorrhoids Epidermal inclusion cyst White coat syndrome with high blood pressure but without hypertension Dry eyes Hyponatremia Hypercalcemia Diarrhea Renal calculi Constipation by delayed colonic transit GERD (gastroesophageal reflux disease) UTI (urinary tract infection) Villous adenoma of colon Insomnia Raynauds disease Anxiety Surgical History History of bronchoscopy History of tonsillectomy Family History Family History Father Medical history unknown Mother Dementia Alzheimers disease Mental health disorder Brother Leukemia Sister Medical history unknown Social History Social History Household Members: None Household Members Other:: longterm Housing: Apartment Housing Other:: Leah Elkins prior to admission. Do you presently have visiting nurse or other home services: No (HCP visits daily to assist pt) Alcohol intake: former Patient Tobacco Use Status: Former Tobacco user Tobacco use type: Cigarette e-Cigarette/Vaping Use: Never Used Second Hand Smoke Exposure: No Advance Directives: Yes Advance Directives on File: Yes Advance Directives Date on File: 11/23/22 Do you have a plan to hurt others: No Plan service: No Current occupational status: retired Cognitive needs: No Hearing needs: No Vision needs: Yes Physical Exam ED Vital Signs: Vital Signs - 24 hr 04/05/24 22:05 04/05/24 22:51 04/06/24 00:13 Temperature 97.7 F 100.8 F H 100 F Pulse Rate 91 80 Respiratory Rate 20 18 Blood Pressure 98/55 L Pulse Oximetry 96 94 Oxygen Delivery Method Room Air Room Air 04/06/24 00:51 04/06/24 00:58 04/06/24 01:09 Temperature 99.6 F Pulse Rate 74 76 76 Respiratory Rate 18 Blood Pressure 91/51 L 94/55 L 99/58 L Pulse Oximetry 98 Oxygen Delivery Method Room Air 04/06/24 01:25 04/06/24 01:28 Temperature Pulse Rate 80 78 Respiratory Rate 20 19 Blood Pressure 101/55 L 98/52 L Pulse Oximetry 98 99 Oxygen Delivery Method Room Air Room Air BMI result Body Mass Index 16.4 Cachectic appearing female Lungs clear to auscultation bilaterally; normal S1-S2 regular rate rhythm Abdomen is soft with mild lower abdominal tenderness and distention Multiple sacral decubitus ulcers with a central stage IV appearing ulcer; serosanguineous drainage, surrounding erythema and warmth appreciated Course Reevaluation(s) Reevaluation #1: I am concerned for sepsis given patient is febrile with a leukocytosis. Fluids ordered however patient has history of reduced EF therefore she will not receive 30 mL/kg at once and will receive 500ml. Afterwards I will reasess and determine if she needs additional fluids Time: 00:14 Medications Administered Discontinued Medications Generic Name Dose Route Start Last Admin Trade Name Freq PRN Reason Stop Dose Admin Vancomycin HCl 1,000 mg/ 270 mls @ 270 mls/hr 04/06/24 00:13 04/06/24 00:43 Sodium Chloride IV 04/06/24 01:12 270 mls/hr ONCE ONE Administration Sodium Chloride 1,000 mls @ 999 mls/hr 04/06/24 00:30 04/06/24 00:58 Ns IV 04/06/24 01:30 999 mls/hr .Q1H1M DEEPALI Administration Iohexol 70 ml 04/06/24 01:24 04/06/24 01:25 Iohexol 350 Mg/Ml 100 Ml Infus..Btl IV 04/06/24 01:25 70 ml ONCE ONE Administration Medical Decision Making Medical Decision Making MDM Narrative: This is a 73-year-old female presenting for lower back pain. I am concerned for soft tissue infection at the site of her decubitus ulcers. I am also considering abdominal pathology such as diverticulitis and bowel obstruction -labs, fluids, antibiotics and imaging studies ordered -patient is now febrile and has leukocytosis; I am concerned for sepsis and ordered fluids and antibiotics -labs are notable for stable H&H, white count of 14, electrolyte within normal limits, normal creatinine, normal lactic acid, mild elevation in LFTs -patient admitted and signed out to night provider; CT pending Differential Diagnosis Differential Diagnoses: The differential diagnosis associated with the presentation includes Soft tissue infection, sepsis, diverticulitis, bowel obstruction Lab Data 04/06/24 00:41 04/05/24 23:08 Labs: Lab Results 04/05/24 04/06/24 04/06/24 Range/Units 23:08 00:41 01:48 WBC 14.1 H 15.7 H (4.8-10.8) X10*3/uL RBC 3.39 L 3.52 L (4.20-5.50) X10*6/uL Hgb 8.6 L 9.1 L (12.0-16.0) g/dl Hct 27.4 L 28.3 L (37.0-47.0) % MCV 80.8 80.4 (80.0-98.0) fL MCH 25.4 L 25.9 L (27.0-33.0) pg MCHC 31.4 32.2 (31.0-35.0) g/dl RDW 16.3 H 16.3 H (11.0-16.0) % Plt Count 542 H 577 H (160-400) X10*3/uL MPV 8.6 L 8.7 L (9.4-12.3) fL Immature Gran % (Auto) 0.5 H 0.4 (0.0-0.4) % Neut % (Auto) 68.0 68.2 (45-73) % Lymph % (Auto) 19.1 L 20.2 (20-40) % [place] % (Auto) 9.5 8.4 (2-11) % Eos % (Auto) 2.5 2.5 (0-4) % Baso % (Auto) 0.4 0.3 (0-2) % Lymph # (Auto) 2.7 3.2 (1.2-4.9) X10*3/uL [place] # (Auto) 1.3 H 1.3 H (0.1-1.2) X10*3/uL Eos # (Auto) 0.4 0.4 (0.0-0.4) X10*3/uL Baso # (Auto) 0.1 0.1 (0.0-0.2) X10*3/uL Abs Immat Gran (auto) 0.07 H 0.06 H (0.00-0.03) X10*3/uL Absolute Neuts (auto) 9.6 H 10.7 H (2.0-8.3) x10*3/uL Absolute Nucleated RBC 0.000 0.000 (0.0-0.012) X10*3/uL Nucleated RBC % (auto) 0.0 0.0 (0.0-0.2) /100WBC Sodium 135 (135-145) mmol/L Potassium 3.7 (3.3-5.1) mmol/L Chloride 105 (96-108) mmol/L Carbon Dioxide 20 L (22-29) mmol/L Anion Gap 14 (12-20) BUN 17 H (9-16) mg/dL Creatinine 0.69 (0.5-1.4) mg/dL Estim Creat Clear Calc 42.4 Estimated GFR > 60 Random Glucose 129 H (60-115) mg/dL Lactic Acid 1.1 (0.5-2.0) mmol/L Calcium 9.2 (8.4-10.2) mg/dL Total Bilirubin 0.2 (0.0-1.0) mg/dL Direct Bilirubin < 0.2 (0.0-0.5) mg/dL AST 65 H (5-31) U/L ALT 65 H (0-31) U/L Alkaline Phosphatase 146 H (39-117) U/L Total Protein 6.1 L (6.5-8.0) g/dL Albumin 2.7 L (3.5-5.0) g/dL Lipase 27 (8-78) U/L Urine Color Yellow Urine Appearance Turbid Urine pH 7.0 (5.0-9.0) Ur Specific [place] 1.015 (1.005-1.025) Urine Protein 100 (2+) H (Neg-Trace) mg/dL Urine Glucose (UA) Negative (Negative) mg/dL Urine Ketones Negative (Negative) mg/dL Urine Blood Large (3+) H (Negative) Urine Nitrite Negative (Negative) Ur Leukocyte Esterase Large (3+) H (Negative) Discharge Plan Discharge Clinical Impression: Sepsis, Soft tissue infection Decubitus ulcer Qualifiers: Pressure injury location: sacral region Pressure injury stage: stage 4 Qualified Code(s): L89.154 - Pressure ulcer of sacral region, stage 4 Patient Disposition: Admitted As Inpatient Print Language: Nauruan
[2024-04-06 00:36] LABS: Bilirubin Direct < 0.2 mg/dL (0.0-0.5); Lipase 27 U/L (8-78)
[2024-04-06] MEDS: vancomycin HCL 1,000 MG in 0.9 % Sodium Chloride 250 ML 270 MG IV ×2 (00:43→13:40)
[2024-04-06 00:52] LABS: MANUAL DIFF FLAG NO
[2024-04-06 00:53] LABS: Basophils Absolute Auto 0.1 X10*3/uL (0.0-0.2); Basophils Percent Auto 0.3 % (0-2); Eosinophils Absolute Auto 0.4 X10*3/uL (0.0-0.4); Eosinophils Percent Auto 2.5 % (0-4); Hematocrit 28.3 % (37.0-47.0); Hemoglobin 9.1 g/dl (12.0-16.0); Imm Gran Abs Auto 0.06 X10*3/uL (0.00-0.03); Imm Gran Pct Auto 0.4 % (0.0-0.4); Lymphocytes Absolute Auto 3.2 X10*3/uL (1.2-4.9); Lymphocytes Percent Auto 20.2 % (20-40); Mean Corpuscular HGB Conc 32.2 g/dl (31.0-35.0); Mean Corpuscular Hemoglobin 25.9 pg (27.0-33.0); Mean Corpuscular Volume 80.4 fL (80.0-98.0); Mean Platelet Volume 8.7 fL (9.4-12.3); Monocytes Absolute Auto 1.3 X10*3/uL (0.1-1.2); Monocytes Percent Auto 8.4 % (2-11); Neutrophils Absolute Auto 10.7 x10*3/uL (2.0-8.3); Neutrophils Percent Auto 68.2 % (45-73); Platelet Count 577 X10*3/uL (160-400); Red Blood Count 3.52 X10*6/uL (4.20-5.50); Red Cell Distribution Width 16.3 % (11.0-16.0); White Blood Count 15.7 X10*3/uL (4.8-10.8)
[2024-04-06] MEDS: 0.9 % Sodium Chloride 1,000 ML 999 ML IV (00:58)
[2024-04-06 00:59] LABS: Lactic Acid 1.1 mmol/L (0.5-2.0)
[2024-04-06] MEDS: iohexoL 350 MG/ML 100 ML INFUS..BTL 70 ML IV (01:25)
[2024-04-06 02:00] LABS: Appearance Urine Turbid; Color Urine Yellow; Glucose Urine UA Negative (Negative); Leukocyte Esterase Urine Large (3+) (Negative); Nitrite Urine Negative (Negative); Specific Gravity - Urine 1.015 (1.005-1.025); UMIC TRIGGER UACC YES; Urine Blood Large (3+) (Negative); Urine Ketones Negative (Negative); Urine Protein 100 (2+) mg/dL (Neg-Trace)
[2024-04-06 02:08] LABS: Bacteria Urine 4+ (None Seen); Hyaline Casts Urine >20 /LPF (0-2); Other Crystals Urine Present; RBC Urine >20 /HPF (0-2); UACC Culture Trigger YES; WBC Clumps Urine Present; WBC Urine >50 /HPF (0-5)
[2024-04-06 03:06] LABS: Influenza A PCR NEGATIVE (Negative); Influenza B PCR NEGATIVE (Negative); Resp Syncy Virus RNA Qual PCR NEGATIVE (Negative); SARS COV2 PCR INHOUSE NEGATIVE (Negative)
[2024-04-06] MEDS: cefTRIAXone sodium 1 GM VIAL IVPUSH (06:13)
[2024-04-06] MEDS: 0.9 % Sodium Chloride 1,000 ML 500 ML IVCONT (06:19)
--- NOTE | 2024-04-06 06:28 | PC.NURSE ---
Pt medicated per [facility] Plan of care ongoing.
--- NOTE | 2024-04-06 07:55 | PC.NURSE ---
Pt sleeping this morning, wakes easily to noise in room. Breathing even and unlabored. NSR on bedside monitor. BPs remain soft but MAP at this time >65. Pt appears pale, multiple blankets due to feeling cold. NS infusing. Awaiting admission orders.
--- NOTE | 2024-04-06 10:10 | P.HPHOSP_ITS ---
History of Present Illness Date of Service: 04/06/24 Attending physician on admission: Karla Sr Chief Complaint: back pain Patient is a 73-year-old female with a past medical history significant for chronic microcytic anemia, Raynaud's GERD, mood disorder, stress induced cardiomyopathy, recurrent C diff decubitus ulcers who presented to the ED last night due to back pain and lower abdominal pain. She has sacral decubiti ulcers for which he has been seeing Wound Care, last seen a few days ago and goes every other week. She has a MANAGER REGISTRATION who comes to her house daily to help her with ADLs and also cleans her wounds. She rated her pain at a 7 to 8/10 when she arrived, now currently 5/10. The back pain is still persistent however abdominal pain has subsided. She reports multiple spinal deformities which contribute to her chronic back pain. She denies any nausea vomiting or fever but has had dysuria for the past day. No urinary frequency, hematuria or urgency. Review of Systems 2 Constitutional: Constitutional: Denies chills, Denies fever(s) and Denies headache(s) Eyes: Eyes: Denies change in vision ENT: Denies headache(s), Denies nasal congestion and Denies nasal discharge Cardiovascular: Cardiovascular: Denies chest pain, Denies rapid heart rate, Denies lightheadedness and Denies dyspnea Respiratory: Respiratory: Denies cough and Denies dyspnea Gastrointestinal: Gastrointestinal: Reports constipation (chronic), Denies diarrhea, Denies nausea and Denies vomiting Genitourinary: Genitourinary: Reports dysuria, Denies urinary hesitancy and Denies urinary urgency Musculoskeletal: Musculoskeletal: Reports back pain Integumentary/Breasts: Skin/Breast: Reports as per HPI Neurologic: Denies headache(s) and Denies memory loss Psychiatric: Psychiatric: Denies memory loss [facility] Medical History Recurrent Clostridioides difficile diarrhea External hemorrhoids Epidermal inclusion cyst White coat syndrome with high blood pressure but without hypertension Dry eyes Hyponatremia Hypercalcemia Diarrhea Renal calculi Constipation by delayed colonic transit GERD (gastroesophageal reflux disease) UTI (urinary tract infection) Villous adenoma of colon Insomnia Raynauds disease Anxiety Family History Father Medical history unknown Mother Dementia Alzheimers disease Mental health disorder Brother Leukemia Sister Medical history unknown Surgical History History of bronchoscopy History of tonsillectomy Social History Household Members: None Household Members Other:: penitentiary Housing: Apartment Housing Other:: Leah Elkins prior to admission. Do you presently have visiting nurse or other home services: No (HCP visits daily to assist pt) Alcohol intake: former Patient Tobacco Use Status: Former Tobacco user Tobacco use type: Cigarette Smoked in Last 30 Days: No e-Cigarette/Vaping Use: Never Used Second Hand Smoke Exposure: No Use of substances other than those prescribed or required for medical reasons: No Advance Directives: Yes Advance Directives on File: Yes Advance Directives Date on File: 11/23/22 Do you have a plan to hurt others: No Plan service: No Current occupational status: retired Cognitive needs: No Hearing needs: No Vision needs: Yes Narrative: Lives alone in assisted living with visiting MANAGER REGISTRATION daily Meds Allergies Allergy/AdvReac Type Severity Reaction Status Date / Time No Known Allergies Allergy Verified 04/05/24 22:08 Physical Exam 2 Vital Signs and Narrative: Vital Signs: Last Vital Signs Temp 97.0 F 04/06/24 06:47 Pulse 73 04/06/24 09:14 Resp 15 04/06/24 09:14 BP 108/68 04/06/24 09:14 Pulse Ox 96 04/06/24 09:14 O2 Del Method Room Air 04/06/24 09:14 BMI result Body Mass Index 16.4 General: AOx3, no acute distress, cachectic Resp: CTA bilaterally CVS: S1, S2, RRR GI: +BS, NT, mild distension Skin: Warm, dry. large bandage on decubitus ulcers, not removed, no blood or drainage on the bandage, no surrounding erythema or warmth Extremities: No edema Psych: Appropriate affect Results Labs 04/06/24 00:41 04/05/24 23:08 Labs: Laboratory Results - last 24 hr 04/05/24 04/06/24 04/06/24 23:08 00:41 01:48 MCV 80.8 80.4 MCH 25.4 L 25.9 L MCHC 31.4 32.2 RDW 16.3 H 16.3 H Plt Count 542 H 577 H MPV 8.6 L 8.7 L Immature Gran % (Auto) 0.5 H 0.4 Neut % (Auto) 68.0 68.2 Lymph % (Auto) 19.1 L 20.2 [place] % (Auto) 9.5 8.4 Eos % (Auto) 2.5 2.5 Baso % (Auto) 0.4 0.3 Lymph # (Auto) 2.7 3.2 [place] # (Auto) 1.3 H 1.3 H Eos # (Auto) 0.4 0.4 Baso # (Auto) 0.1 0.1 Abs Immat Gran (auto) 0.07 H 0.06 H Absolute Neuts (auto) 9.6 H 10.7 H Absolute Nucleated RBC 0.000 0.000 Nucleated RBC % (auto) 0.0 0.0 Anion Gap 14 Estim Creat Clear Calc 42.4 Estimated GFR > 60 Random Glucose 129 H Lactic Acid 1.1 Calcium 9.2 Total Bilirubin 0.2 Direct Bilirubin < 0.2 AST 65 H ALT 65 H Alkaline Phosphatase 146 H Total Protein 6.1 L Albumin 2.7 L Lipase 27 Urine Color Yellow Urine Appearance Turbid Urine pH 7.0 Ur Specific [place] 1.015 Urine Protein 100 (2+) H Urine Glucose (UA) Negative Urine Ketones Negative Urine Blood Large (3+) H Urine Nitrite Negative Ur Leukocyte Esterase Large (3+) H Urine RBC >20 H Urine WBC >50 H Urine WBC Clumps Present Ur Squamous Epith Cells 6-10 Other Crystals Present Urine Bacteria 4+ Hyaline Casts >20 Influenza Type A (PCR) Influenza Type B (PCR) RSV RNA Qual (PCR) SARS-CoV-2 RNA (RT-PCR) 04/06/24 02:22 MCV MCH MCHC RDW Plt Count MPV Immature Gran % (Auto) Neut % (Auto) Lymph % (Auto) [place] % (Auto) Eos % (Auto) Baso % (Auto) Lymph # (Auto) [place] # (Auto) Eos # (Auto) Baso # (Auto) Abs Immat Gran (auto) Absolute Neuts (auto) Absolute Nucleated RBC Nucleated RBC % (auto) Anion Gap Estim Creat Clear Calc Estimated GFR Random Glucose Lactic Acid Calcium Total Bilirubin Direct Bilirubin AST ALT Alkaline Phosphatase Total Protein Albumin Lipase Urine Color Urine Appearance Urine pH Ur Specific [place] Urine Protein Urine Glucose (UA) Urine Ketones Urine Blood Urine Nitrite Ur Leukocyte Esterase Urine RBC Urine WBC Urine WBC Clumps Ur Squamous Epith Cells Other Crystals Urine Bacteria Hyaline Casts Influenza Type A (PCR) NEGATIVE Influenza Type B (PCR) NEGATIVE RSV RNA Qual (PCR) NEGATIVE SARS-CoV-2 RNA (RT-PCR) NEGATIVE Imaging Radiologist's Impressions: Impressions Abdomen/Pelvis CT 04/06/24 00:06 IMPRESSION: 1. Sacral decubitus ulcer new compared with 08/20/2023. Gas within the ulcer comes to within 2 mm proximity of the adjacent sacrum. No sacral erosions noted. Findings are consistent with at least a grade 3 sacral decubitus ulcer. Findings extend to within 2 mm proximity of the adjacent sacrum. Exposure of the sacrum would reclassify findings as a grade 4 decubitus ulcer. 2. Moderate quantity of stool within the ascending colon. No colonic dilatation. No free intraperitoneal gas. 3. Bilateral nonobstructing renal calculi. 4. Marked levoscoliosis of the thoracolumbar spine. 5. Chronic posttraumatic deformities of the pelvis and chronic T11 vertebral body unchanged compared with 08/20/2023. Electronically signed by: Abdirahman Weinberg MD 04/06/2024 03:04 AM EDT RP Assessment and Plan (1) Sepsis: Status: Acute (2) Decubitus ulcer: Qualifiers: Pressure injury location: sacral region Pressure injury stage: stage 4 Qualified Code(s): L89.154 - Pressure ulcer of sacral region, stage 4 Status: Acute (3) Acute UTI: Status: Acute Plan Patient is a 73-year-old female with a past medical history significant for chronic microcytic anemia, Raynaud's GERD, mood disorder, stress induced cardiomyopathy, recurrent C diff decubitus ulcers who presented to the ED last night due to back pain and lower abdominal pain. Testing in ED conclusive for sepsis and UTI, urine culture pending. Sepsis secondary to UTI - UA with bacteria, culture pending - A/P CT with sacral decubitus ulcer, new compared from 08/20/2023. Gas within the ulcer comes within 2 mm proximity to the adjacent sacrum, and moderate constipation - WBC 15.7, up from 14.1 yesterday - lactate normal - given vancomycin and ceftriaxone in ED, will continue - monitor CBC Stage IV decubitus ulcers - possible infection - on vancomycin and ceftriaxone as above - continue tramadol as needed for pain - Wound care consult Abdominal pain- improved - CT normal aside from chronic constipation - likely related to UTI Chronic microcytic anemia - stable GERD - continue famotidine and pantoprazole HTN - hold metoprolol due to low BP Mood disorder - continue mirtazapine, quetiapine and temazepam DNR/DNI VTE prophy: lovenox Pt with sepsis, UTI and stage 4 decubitus ulcers, requiring admission for at least 2 midnights stay for IV antibiotics. Quality Stroke Does the patient have a stroke diagnosis?: No VTE Prior VTE?: No VTE Risk Level:: Medical - moderate - high VTE Device Contraindication: Treatment Not Tolerated VTE Drug Contraindication: N/A - Med Ordered
--- NOTE | 2024-04-06 11:10 | PHA.MEDREC ---
Addendum entered by Denita Martinez RPh 04/06/24 11:40: [facility] REVIEWED Original Note: Pharmacy Consult ? Medication Reconciliation Pharmacy has completed the medication reconciliation. Spoke with patient and she was not sure of medications but states her HCP Miguelina knows her medications and is on her contact list. Patient confirmed she took her medications yesterday. Spoke with Miguelina over the phone and she stated that the patient was just discharged the end of February and no changes have been made to the medications. Patient has an overabundance of her Metoprolol 25mg tabs which Miguelina confirmed she is now taking half a tab and that is why she has so much and Pantoprazole 40mg she has a lot of as well at home and has not had to pick up man at the pharmacy.
[2024-04-06 11:17] LABS: Lactic Acid 0.9 mmol/L (0.5-2.0)
[2024-04-06 11:19] LABS: Creatinine Clr Calc Pharmacy 49.6; Estimated Glomerular Filt Rate > 60
--- NOTE | 2024-04-06 11:33 | PHA.PROG ---
Admission Date/Time: April 06, 2024 10:38 Indication: skin Weight in k.2 kg Adjusted body weight in K.58 kg Serum Creatinine - Last 168 Hours 04/05/24 04/06/24 23:08 11:01 Creatinine 0.69 0.59 Estimated CrCl and GFR - Last 168 Hours 04/05/24 04/06/24 23:08 11:01 Estim Creat Clear Calc 42.4 49.6 Estimated GFR > 60 > 60 Vancomycin Loading Dose: 1,000 Current Vancomycin Dosing Regimen: 1,000 mg q12h Vancomycin Monitoring using AUC goal of 400 - 600 range with trough as surrogate marker: 471, predicted trough 14.8 Date and Time for next Vancomycin Level to be drawn: 04/07 @ 1100 Pharmacist Comments on Vancomycin Plan: Vancomycin dosing will take advantage of Cartesian as a clinical decision support tool that uses Bayesian modeling to calculate individual patient's pharmacokinetic parameters and forecast the patient's drug concentration time course with the target goal AUC 24 range of 400 - 600 mg/L/hr.
--- NOTE | 2024-04-06 11:47 | PHA.PROG ---
Admission Date/Time: April 06, 2024 10:38 Indication: Skin Weight in k.8 kg Adjusted body weight in K.62 kg Serum Creatinine - Last 168 Hours 04/05/24 04/06/24 23:08 11:01 Creatinine 0.69 0.59 Estimated CrCl and GFR - Last 168 Hours 04/05/24 04/06/24 23:08 11:01 Estim Creat Clear Calc 42.4 49.6 Estimated GFR > 60 > 60 Vancomycin Loading Dose: 1,000 mg Current Vancomycin Dosing Regimen: 1,000 mg q24h Vancomycin Monitoring using AUC goal of 400 - 600 range with trough as surrogate marker: 422, predicted trough 11 Date and Time for next Vancomycin Level to be drawn: 04/07 @ 1100 Pharmacist Comments on Vancomycin Plan: Vancomycin dosing will take advantage of Qwaq as a clinical decision support tool that uses Bayesian modeling to calculate individual patient's pharmacokinetic parameters and forecast the patient's drug concentration time course with the target goal AUC 24 range of 400 - 600 mg/L/hr.
--- NOTE | 2024-04-06 11:47 | PC.NURSE ---
Pt cleansed and linens changed.
--- NOTE | 2024-04-06 14:41 | HO.WOUND ---
Wound Consult: Initial 73yr old?female admitted to [facility] on 04/06/24 - See progress notes and H&P for detailed history.? Wound consult placed for sacral wound.? Patient agreeable to assessment and photo documentation.? Patient appears significantly malnourished and underweight - Nutrition consulted. Patient reports she does not rotate when in bed she reports given her back problems she is often on her back due to comfort. She was educated on the importance of repositioning off the wound. The patient reports she sits most of her day. We discussed waffle cushion. She should limit uninterrupted sit time to 1 hr. She is requesting brief use - as she reports the purewick is leaking - purewick adjusted no urine leaking noted at this time -purewick with mesh panties and recommend adding peripad. Briefs are prohibited given her immobility and location of the stage 4 pressure injury to her sacrum. She reports understanding. Sacrum / coccyx Coccyx Right Sacrum Etiology: ?Unstageable Pressure Injury ?Present on Admission Measurements: 3cm x 4cm x 0.2cm Wound Bed: adherent yellow slough Drainage / Odor: Brothers foul odor drainage Edges: ? unattached Nancy wound: ? red pink erythema - No Induration, Fluctuance or Warmth noted Pain: Reports pain Goals of Treatment: ? Durafiber for enhanced autolytic debridement Coccyx Etiology: ??Stage 4 Pressure injury Present on Admission Measurements: 5cm x 3cm x 2cm undermining present from 12-6 o'clock max depth of 7cm Wound Bed: exposed pink clean wound bed 0 undermining area considerable yellow slough noted Drainage / Odor: foul drainage brothers Edges: ? unattached Nancy wound: red pink erythema - No Induration, Fluctuance or Warmth noted Pain: reports pain Goals of Treatment: ? Durafiber for enhanced autolytic debridement Recommendations: 1. Turn and Reposition every 2 hours and as needed for patient comfort.? Use pillows or wedges to support off loading positions. 2. Off Load all bony prominences with use of pillows and heel boots if needed.? Apply Preventative foams where needed. ?Elevate heels off of bed surface with pillows. 3. Monitor for incontinence and moisture control, use barrier creams when needed for prevention and treatment. Purewick in place - do not use brief. 4. Provide adequate and supplemental nutrition.? 5. Order low air loss mattress. 6. When applicable maintain blood glucose levels per Providers order. 7. Sacrum and coccyx - Cleanse and irrigate with NS, pat dry. Apply skin prep to periwound. Lightly pack wound bed with Durafiber AG, cover with dry gauze, ABD pad. Change daily while inpatient. Re-consult wound care Nurse for wound deterioration or wound changes.
[2024-04-06] MEDS: LORazepam 1 MG TABLET PO ×2 (14:46→19:45)
[2024-04-06] MEDS: traMADoL HCL 50 MG TABLET PO (16:20)
[2024-04-06] MEDS: Temazepam 15 MG CAPSULE PO (19:35)
[2024-04-06] MEDS: Atorvastatin Calcium 40 MG TABLET PO (19:36)
[2024-04-06] MEDS: 0.9 % Sodium Chloride Flush 3 ML SYRINGE IVFLUSH (19:36)
[2024-04-06] MEDS: QUEtiapine Fumarate 50 MG TABLET PO (19:36)
--- NOTE | 2024-04-06 19:45 | MHC.PIE ---
p; pt demanding prn Ativan with pm meds - note; prn Ativan bid given at 1446. note; pt calling telephone directory distributor driver goddard and to front disk every 5-15 min - for pm meds, ativan, sleep med, position, purwick placement, light and ect..... i; dr petersen notified. ok to give prn Ativan early e; will cont to monitor
[2024-04-07 04:00] VITALS: BP 98/51; PULSE 76; RESP 18; TEMP 36.5; O2SAT 96
[2024-04-07] MEDS: traMADoL HCL 50 MG TABLET PO (05:15)
[2024-04-07] MEDS: cefTRIAXone sodium 1 GM VIAL IVPUSH (05:15)
[2024-04-07] MEDS: Omeprazole 20 MG CAPSULE.DR PO (05:15)
[2024-04-07 06:45] LABS: MANUAL DIFF FLAG NO
[2024-04-07 07:03] LABS: Basophils Absolute Auto 0.1 X10*3/uL (0.0-0.2); Basophils Percent Auto 0.5 % (0-2); Eosinophils Absolute Auto 0.5 X10*3/uL (0.0-0.4); Eosinophils Percent Auto 4.4 % (0-4); Hematocrit 28.1 % (37.0-47.0); Hemoglobin 8.7 g/dl (12.0-16.0); Imm Gran Abs Auto 0.06 X10*3/uL (0.00-0.03); Imm Gran Pct Auto 0.6 % (0.0-0.4); Lymphocytes Absolute Auto 2.2 X10*3/uL (1.2-4.9); Mean Corpuscular Hemoglobin 25.3 pg (27.0-33.0); Mean Corpuscular Volume 81.7 fL (80.0-98.0); Mean Platelet Volume 9.4 fL (9.4-12.3); Monocytes Absolute Auto 0.8 X10*3/uL (0.1-1.2); Monocytes Percent Auto 7.6 % (2-11); Neutrophils Absolute Auto 6.9 x10*3/uL (2.0-8.3); Neutrophils Percent Auto 65.9 % (45-73); Platelet Count 577 X10*3/uL (160-400); Red Blood Count 3.44 X10*6/uL (4.20-5.50); Red Cell Distribution Width 16.3 % (11.0-16.0); White Blood Count 10.5 X10*3/uL (4.8-10.8)
[2024-04-07 07:15] LABS: Anion Gap 14 (12-20); Blood Urea Nitrogen 12 mg/dL (9-16); Calcium 10.1 mg/dL (8.4-10.2); Carbon Dioxide 18 mmol/L (22-29); Chloride 111 mmol/L (96-108); Creatinine Clr Calc Pharmacy 49.6; Estimated Glomerular Filt Rate > 60; Glucose Random 90 mg/dL (60-115); Potassium 3.3 mmol/L (3.3-5.1); Sodium 140 mmol/L (135-145)
[2024-04-07 07:50] VITALS: BP 119/58; PULSE 80; RESP 16; TEMP 36.6; O2SAT 96
[2024-04-07] MEDS: QUEtiapine Fumarate 50 MG TABLET PO ×2 (08:45→19:40)
[2024-04-07] MEDS: Mirtazapine 7.5 MG TABLET PO (08:45)
[2024-04-07] MEDS: Famotidine 20 MG TABLET PO ×2 (08:45→11:23)
[2024-04-07] MEDS: 0.9 % Sodium Chloride Flush 3 ML SYRINGE IVFLUSH ×3 (08:47→19:40)
[2024-04-07 10:17] VITALS: BMI 17.6
--- NOTE | 2024-04-07 10:32 | MHC.CLN ---
Addendum entered by April Benz, GABRIEL 04/07/24 13:19: ALERTED BY DINING STAFF THAT PATIENT PREFERS CHOCOLATE ENSURE. ORDER PLACED FOR ENSURE TID. SUPPLEMENT PROVIDES 1050 KCALS, 60 G PROTEIN. Original Note: NUTRITION CONSULT FOR LOW BMI AND POOR PO. DIET=REGULAR, CHOPPED CONSISTENCY. PER PRIOR ADM, DISLIKES ENSURE BUT WILL ACCEPT MAGIC CUP. SUPPLEMENT PROVIDES 870 KCALS, 27 G PROTEIN. DX MODERATE PROTEIN CALORIE MALNUTRITION. HX POOR PO INTAKE, BMI=17.6 UNDERWEIGHT, MILD DEPLETION OF BODY FAT AND MUSCLE MASS. INCREASED NUTRITION NEEDS DUE TO MALNUTRITION AND PRESSURE INJURIES. FOLLOW FOR INTAKE AND SKIN INTEGRITY. SEE CLINICAL NUTRITION ASSESSMENT 04/07/24.
--- NOTE | 2024-04-07 11:16 | HO.PM.IMPN ---
Subjective Subjective Date of Service: 04/07/24 Interval History: seen and evaluated still complaining of pain in her back denies any fever or chills no more fever no other events Review of Systems Review of Systems: Yes all other systems are reviewed and are negative Physical Exam Vital Signs: Vital Signs: Last Vital Signs Temp 97.8 F 04/07/24 07:50 Pulse 80 04/07/24 07:50 Resp 16 04/07/24 07:50 BP 119/58 L 04/07/24 07:50 Pulse Ox 96 04/07/24 07:50 O2 Del Method Room Air 04/07/24 07:50 BMI result Body Mass Index 17.6 Const: Other: Constitutional : Awake, interactive, underwieght, not in distress Neck : Normal inspection, Supple Cardiovascular : RRR, no JVP, no lower extremity edema Respiratory : good bilateral air entry, no crackles, wheezes or rhonchi Gastrointestinal: soft, lax, Normal bowel sounds, Non tender Skin : Warm, Dry, two large sacral wounds of 3,4 with erythema and draiange with found smelling. Neurological : Alert & oriented x3, No focal deficit Objective Data Active Medications Acetaminophen (Acetaminophen 325 Mg Tablet) 650 mg PO Q6H PRN PRN Reason: Pain, Mild (Pain Scale 1-3), fever or headache Atorvastatin Calcium (Atorvastatin Calcium 40 Mg Tablet) 40 mg PO BEDTIME [facility] Last Admin: 04/06/24 19:36 Dose: 40 mg Documented By: ZEYNEP Calcium Carbonate (Calcium Carbonate 750 Mg Tab.Chew) 750 mg PO Q4H PRN PRN Reason: Heartburn Ceftriaxone Sodium (Ceftriaxone Sodium 1 Gm Vial) 1 gm IVPUSH Q24H [facility] Last Admin: 04/07/24 05:15 Dose: 1 gm Documented By: ZEYNEP Enoxaparin Sodium (Enoxaparin Sodium 40 Mg/0.4 Ml Syringe) 40 mg SUBCUT Q24H [facility] Last Admin: 04/06/24 11:53 Dose: Not Given Documented By: PAUL Non-Admin Reason: Patient Refused Famotidine (Famotidine 20 Mg Tablet) 20 mg PO BID@0900,1200 [facility] Last Admin: 04/07/24 08:45 Dose: 20 mg Documented By: CARIE Vancomycin HCl 1,000 mg/ (Sodium Chloride) 270 mls @ 270 mls/hr IV Q24H [facility] Last Infusion: 04/06/24 14:51 Dose: Infused Documented By: CARIE Lorazepam (Lorazepam 1 Mg Tablet) 1 mg PO BID PRN PRN Reason: anxiety Last Admin: 04/06/24 19:45 Dose: 1 mg Documented By: ZEYNEP Comments: early dose ok by dr petersen Magnesium Hydroxide (Milk Of Magnesia 30 Ml Oral.Susp) 30 ml PO DAILY PRN PRN Reason: Constipation Melatonin (Melatonin 3 Mg Tablet) 6 mg PO BEDTIME PRN PRN Reason: Insomnia Mirtazapine (Mirtazapine 7.5 Mg Tablet) 7.5 mg PO DAILY [facility] Last Admin: 04/07/24 08:45 Dose: 7.5 mg Documented By: CARIE Omeprazole (Omeprazole 20 Mg Capsule.) 20 mg PO DAILY@0630 [facility] Last Admin: 04/07/24 05:15 Dose: 20 mg Documented By: ZEYNEP Ondansetron HCl (Ondansetron Hcl 4 Mg/2 Ml Vial) 4 mg IVPUSH Q8H PRN PRN Reason: Nausea and Vomiting Oxycodone HCl (Oxycodone Hcl Immed Release 5 Mg Tablet) 5 mg PO Q6H PRN PRN Reason: Pain, Severe (Pain Scale 7-10) Pharmacy Consult (Consult Rx Vancomycin Dosing) 1 each MISCELLANE DAILY PRN PRN Reason: Consult order Quetiapine Fumarate (Quetiapine Fumarate 50 Mg Tablet) 50 mg PO BID [facility] Last Admin: 04/07/24 08:45 Dose: 50 mg Documented By: CARIE Sodium Chloride (0.9 % Sodium Chloride Flush 3 Ml Syringe) 3 ml IVFLUSH QSHIFT [facility] Last Admin: 04/07/24 08:47 Dose: 3 ml Documented By: CARIE Temazepam (Temazepam 15 Mg Capsule) 15 mg PO BEDTIME PRN PRN Reason: sleep Last Admin: 04/06/24 19:35 Dose: 15 mg Documented By: ZEYNEP Labs 04/07/24 06:41 04/07/24 06:41 Labs: Laboratory Results - last 24 hr 04/06/24 04/07/24 11:01 06:41 MCV 81.7 MCH 25.3 L MCHC 31.0 RDW 16.3 H Plt Count 577 H MPV 9.4 Immature Gran % (Auto) 0.6 H Neut % (Auto) 65.9 Lymph % (Auto) 21.0 [place] % (Auto) 7.6 Eos % (Auto) 4.4 H Baso % (Auto) 0.5 Lymph # (Auto) 2.2 [place] # (Auto) 0.8 Eos # (Auto) 0.5 H Baso # (Auto) 0.1 Abs Immat Gran (auto) 0.06 H Absolute Neuts (auto) 6.9 Absolute Nucleated RBC 0.000 Nucleated RBC % (auto) 0.0 Anion Gap 14 Estim Creat Clear Calc 49.6 49.6 Estimated GFR > 60 > 60 Random Glucose 90 Lactic Acid 0.9 Calcium 10.1 D Microbiology Microbiology Results: Microbiology 04/06/24 01:44 Gram Stain - Final Coccyx Routine Culture - Preliminary Culture in progress. 04/06/24 00:41 Blood Culture - Preliminary Blood - Venous No growth after 24 hours. 04/06/24 00:41 Blood Culture - Preliminary Blood - Venous No growth after 24 hours. Assessment and Plan (1) Acute UTI: Status: Acute (2) Soft tissue infection: Status: Acute (3) Decubitus ulcer: Status: Acute (4) Stage 4 pressure ulcer: Status: Acute (5) Sepsis: Status: Acute Plan Patient is a 73-year-old female with a past medical history significant for chronic microcytic anemia, Raynaud's GERD, mood disorder, stress induced cardiomyopathy, recurrent C diff decubitus ulcers who presented to the ED last night due to back pain and lower abdominal pain. Testing in ED conclusive for sepsis and UTI, urine culture pending. Sepsis secondary to UTI sepsis resolved culture pending continue Vanco\ Ceftriaxone Hx of MDR Stage IV infected decubitus ulcers A/P CT with sacral decubitus ulcer, new compared from 08/20/2023. Gas within the ulcer comes within 2 mm proximity to the adjacent sacrum, and moderate constipation on vancomycin and ceftriaxone as above continue tramadol as needed for pain Wound care following Surgery consult Constipation CT normal aside from chronic constipation start Senna\Colace with MEtamucil Chronic microcytic anemia stable, monitor Moderate malnutrition Add Ensure to diet GERD continue famotidine and pantoprazole HTN hold metoprolol due to low BP Mood disorder continue mirtazapine, quetiapine and temazepam DNR/DNI DVT PPx: lovenox Pt with sepsis, UTI and stage 4 decubitus ulcers, requiring admission for overnight for IV antibiotics pending surgery evaluation Quality Stroke Does the patient have a stroke diagnosis?: No VTE Prior VTE?: No VTE Risk Level:: Medical - moderate - high VTE Device Contraindication: Treatment Not Tolerated VTE Drug Contraindication: N/A - Med Ordered
--- NOTE | 2024-04-07 11:21 | MHC.CM.PN ---
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
[2024-04-07] MEDS: LORazepam 1 MG TABLET PO ×2 (11:22→19:39)
[2024-04-07] MEDS: oxyCODONE HCl Immed Release 5 MG TABLET PO ×2 (11:23→19:40)
[2024-04-07 11:26] LABS: Vancomycin Trough 13.7 mcg/mL (10.0-20.0)
--- NOTE | 2024-04-07 11:31 | PC.NURSE ---
Pt calling multiple individuals in the hospital to complain she is not getting care. Pt with known false statements and manipulative behavior. Pt was washed this AM by Nursing sales support assistant and changed. Pt requesting to be turned and repositioned every 15 min. Pt attempted to educate that turn and repo is q2h. Pt unable to understand this concept. Pt encouraged to go to SNF for care of wounds however she continues to refuse this recommendation and hence her health status continues to decline. See Wound care note for documentation.
--- NOTE | 2024-04-07 11:43 | HE.PHANOTE ---
Re: Flory Pt has low but stable renal function. Trough returned at 13.7. Continue current regimen of 1,000 q24h with predicted AUC 523, predicted trough 14.6. Due to pt's renal function and very small BMI, checking trough after next dose: 04/08 @ 1100.
--- NOTE | 2024-04-07 11:52 | PM.CNGS ---
History of Present Illness Consult details Consult date: 04/07/24 Narrative: 73-year-old female admitted last night with signs of sepsis. She had complained of back pain and abdominal pain. She is bed ridden after suffering a right hip fracture and a pelvic fracture in the past. On admission, he was noted to have a urinary tract infection with sepsis. She also has had this sacral decubitus ulcers and I was asked to consult. She does have chronic back pain including the sacrum. She states she really does not move in bed anymore unless with assistance. She was admitted with leukocytosis She currently denies abdominal pain at this time. Review of Systems Constitutional: Constitutional: Reports chills and Denies fever(s) Cardiovascular: Cardiovascular: Denies chest pain Respiratory: Respiratory: Denies cough Gastrointestinal: Gastrointestinal: Denies diarrhea and Denies vomiting Genitourinary: Genitourinary: Denies difficulty voiding Musculoskeletal: Musculoskeletal: Reports back pain Comments: Chronic back PMFSH Past Medical History Medical History Recurrent Clostridioides difficile diarrhea External hemorrhoids Epidermal inclusion cyst White coat syndrome with high blood pressure but without hypertension Dry eyes Hyponatremia Hypercalcemia Diarrhea Renal calculi Constipation by delayed colonic transit GERD (gastroesophageal reflux disease) UTI (urinary tract infection) Villous adenoma of colon Insomnia Raynauds disease Anxiety Family History Family History Father Medical history unknown Mother Dementia Alzheimers disease Mental health disorder Brother Leukemia Sister Medical history unknown Surgical History Surgical History History of bronchoscopy History of tonsillectomy Social History Social History Household Members: None Household Members Other:: half-way Housing: Apartment Housing Other:: Leah Elkins prior to admission. Do you presently have visiting nurse or other home services: Yes ([employer]) Alcohol intake: former Patient Tobacco Use Status: Former Tobacco user Tobacco use type: Cigarette Smoked in Last 30 Days: No e-Cigarette/Vaping Use: Never Used Second Hand Smoke Exposure: No Use of substances other than those prescribed or required for medical reasons: No Currently Displaying Signs/Symptoms of Drug Intoxication Withdrawal: No Have you been hit, kicked, punched, or otherwise hurt by someone within the past year? If so, by whom?: No Do you feel safe in your current relationship?: No Current Relationship Is there a partner from a previous relationship who is making you feel unsafe now?: No Are you made to feel afraid or neglected: No Advance Directives: Yes Advance Directives on File: Yes Advance Directives Date on File: 11/23/22 Do you have a plan to hurt others: No Plan Recently lost weight without trying: Unsure How much weight loss: Unsure Eating poorly because of decreased appetite: Yes Nutrition screen score: 5 Patient : No : No Poor oral hygiene: No service: No Current occupational status: retired Cognitive needs: No Hearing needs: No Vision needs: Yes Meds Allergies Allergy/AdvReac Type Severity Reaction Status Date / Time No Known Allergies Allergy Verified 04/05/24 22:08 Active Medications: Current Medications Acetaminophen (Acetaminophen 325 Mg Tablet) 650 mg PO Q6H PRN PRN Reason: Pain, Mild (Pain Scale 1-3), fever or headache Atorvastatin Calcium (Atorvastatin Calcium 40 Mg Tablet) 40 mg PO BEDTIME [facility] Last Admin: 04/06/24 19:36 Dose: 40 mg Calcium Carbonate (Calcium Carbonate 750 Mg Tab.Chew) 750 mg PO Q4H PRN PRN Reason: Heartburn Ceftriaxone Sodium (Ceftriaxone Sodium 1 Gm Vial) 1 gm IVPUSH Q24H [facility] Last Admin: 04/07/24 05:15 Dose: 1 gm Enoxaparin Sodium (Enoxaparin Sodium 40 Mg/0.4 Ml Syringe) 40 mg SUBCUT Q24H [facility] Last Admin: 04/07/24 11:23 Dose: Not Given Famotidine (Famotidine 20 Mg Tablet) 20 mg PO BID@0900,1200 [facility] Last Admin: 04/07/24 11:23 Dose: 20 mg Vancomycin HCl 1,000 mg/ (Sodium Chloride) 270 mls @ 270 mls/hr IV Q24H [facility] Last Infusion: 04/06/24 14:51 Dose: Infused Lorazepam (Lorazepam 1 Mg Tablet) 1 mg PO BID PRN PRN Reason: anxiety Last Admin: 04/07/24 11:22 Dose: 1 mg Magnesium Hydroxide (Milk Of Magnesia 30 Ml Oral.Susp) 30 ml PO DAILY PRN PRN Reason: Constipation Melatonin (Melatonin 3 Mg Tablet) 6 mg PO BEDTIME PRN PRN Reason: Insomnia Mirtazapine (Mirtazapine 7.5 Mg Tablet) 7.5 mg PO DAILY [facility] Last Admin: 04/07/24 08:45 Dose: 7.5 mg Omeprazole (Omeprazole 20 Mg Capsule.Dr) 20 mg PO DAILY@0630 [facility] Last Admin: 04/07/24 05:15 Dose: 20 mg Ondansetron HCl (Ondansetron Hcl 4 Mg/2 Ml Vial) 4 mg IVPUSH Q8H PRN PRN Reason: Nausea and Vomiting Oxycodone HCl (Oxycodone Hcl Immed Release 5 Mg Tablet) 5 mg PO Q6H PRN PRN Reason: Pain, Severe (Pain Scale 7-10) Last Admin: 04/07/24 11:23 Dose: 5 mg Pharmacy Consult (Consult Rx Vancomycin Dosing) 1 each MISCELLANE DAILY PRN PRN Reason: Consult order Psyllium Hydrophilic Mucilloid (Psyllium Seed 3.7 Gm Packet) 3.7 gm PO BEDTIME [facility] Quetiapine Fumarate (Quetiapine Fumarate 50 Mg Tablet) 50 mg PO BID [facility] Last Admin: 04/07/24 08:45 Dose: 50 mg Senna/Docusate Sodium (Sennosides/Docusate Sodium Tablet) 2 tab PO DAILY [facility] Sodium Chloride (0.9 % Sodium Chloride Flush 3 Ml Syringe) 3 ml IVFLUSH QSHIFT [facility] Last Admin: 04/07/24 08:47 Dose: 3 ml Temazepam (Temazepam 15 Mg Capsule) 15 mg PO BEDTIME PRN PRN Reason: sleep Last Admin: 04/06/24 19:35 Dose: 15 mg Physical Exam Vital Signs: Vital Signs: Last Vital Signs Temp 97.8 F 04/07/24 07:50 Pulse 80 04/07/24 07:50 Resp 16 04/07/24 07:50 BP 119/58 L 04/07/24 07:50 Pulse Ox 96 04/07/24 07:50 O2 Del Method Room Air 04/07/24 07:50 BMI result Body Mass Index 17.6 Const: Other: Appears cachectic, frail looking General: comfortable and no acute distress Resp: Effort & Inspection: normal respiratory effort Cardio: Rate: regular rate GI: Palpation (GI): Soft to palpation, not firm and nontender Back/Spine/Pelvis: Other: Two decubitus ulcers on the lower back, 1 at sacral ischial area, about 3 x 4 cm, down to the deep subcutaneous tissue, clean, good granulation without any gangrenous tissue Another ulcer to the right of the midline towards the buttock in the sacral area as well, undermining, more of a stage 1-2 ulcer, about 3 x 3 cm with a little bit of skin breakdown, clean, with some skin discoloration and fibrinous tissue Results Labs 04/11/24 05:23 04/11/24 05:23 Labs: Abnormal lab results 04/07/24 Range/Units 06:41 RBC 3.44 L (4.20-5.50) X10*6/uL Hgb 8.7 L (12.0-16.0) g/dl Hct 28.1 L (37.0-47.0) % MCH 25.3 L (27.0-33.0) pg RDW 16.3 H (11.0-16.0) % Plt Count 577 H (160-400) X10*3/uL Immature Gran % (Auto) 0.6 H (0.0-0.4) % Eos % (Auto) 4.4 H (0-4) % Eos # (Auto) 0.5 H (0.0-0.4) X10*3/uL Abs Immat Gran (auto) 0.06 H (0.00-0.03) X10*3/uL Chloride 111 H (96-108) mmol/L Carbon Dioxide 18 L (22-29) mmol/L Short CBC 04/07/24 Range/Units 06:41 WBC 10.5 (4.8-10.8) X10*3/uL Hgb 8.7 L (12.0-16.0) g/dl Hct 28.1 L (37.0-47.0) % Plt Count 577 H (160-400) X10*3/uL BMP 04/07/24 06:41 Sodium 140 Potassium 3.3 Chloride 111 H Carbon Dioxide 18 L BUN 12 Creatinine 0.63 Calcium 10.1 D Urine 04/06/24 Range/Units 01:48 Urine Color Yellow Urine Appearance Turbid Urine pH 7.0 (5.0-9.0) Ur Specific [place] 1.015 (1.005-1.025) Urine Protein 100 (2+) H (Neg-Trace) mg/dL Urine Glucose (UA) Negative (Negative) mg/dL All other labs normal. Assessment and Plan (1) Stage II pressure ulcer of sacral region: Status: Acute She has 2 sacral decubitus ulcers as described above. There was note of some fibrinous debris but no necrotic tissue was seen. Does not appear that she will need debridement at this time. However, I will examined this again next week to see how this is healing. She needs to have frequent changes in her position for bed sore precautions I would continue with her current silver alginate dressings for now. She needs nutritional support as well as she is a cachectic and is likely malnourished which will affect healing. She does not appear septic at this time and looks comfortable and hemodynamically stable Procedures Date of Service Date of Service: 04/11/24
[2024-04-07] MEDS: vancomycin HCL 1,000 MG in 0.9 % Sodium Chloride 250 ML 270 MG IV (12:37)
[2024-04-07] MEDS: Sennosides/Docusate Sodium TABLET 0.5 TAB PO (14:07)
[2024-04-07 15:26] VITALS: BP 127/71; PULSE 82; RESP 16; TEMP 36.4; O2SAT 96
[2024-04-07] MEDS: Temazepam 15 MG CAPSULE PO (19:39)
[2024-04-07] MEDS: Atorvastatin Calcium 40 MG TABLET PO (19:40)
[2024-04-07 19:43] VITALS: BP 100/50; PULSE 81; RESP 16; TEMP 36.2; O2SAT 95
--- NOTE | 2024-04-07 19:55 | MHC.PIE ---
p; pt demanding ativan once again tonight with PM med. note; prn ativan bid given at 1100 i; dr petersen notified. ok to give early dose e; will cont to [facility]
[2024-04-08 04:00] VITALS: BP 118/64; PULSE 81; RESP 16; TEMP 36.5; O2SAT 97
[2024-04-08] MEDS: Omeprazole 20 MG CAPSULE.DR PO (05:20)
[2024-04-08] MEDS: cefTRIAXone sodium 1 GM VIAL IVPUSH (05:20)
[2024-04-08 06:35] LABS: MANUAL DIFF FLAG NO
[2024-04-08 06:55] LABS: Anion Gap 15 (12-20); Blood Urea Nitrogen 11 mg/dL (9-16); Calcium 9.6 mg/dL (8.4-10.2); Carbon Dioxide 17 mmol/L (22-29); Chloride 111 mmol/L (96-108); Creatinine Clr Calc Pharmacy 52.1; Estimated Glomerular Filt Rate > 60; Glucose Random 82 mg/dL (60-115); Potassium 3.3 mmol/L (3.3-5.1); Sodium 140 mmol/L (135-145)
[2024-04-08 07:08] LABS: Basophils Absolute Auto 0.1 X10*3/uL (0.0-0.2); Basophils Percent Auto 0.3 % (0-2); Eosinophils Absolute Auto 0.4 X10*3/uL (0.0-0.4); Hematocrit 30.5 % (37.0-47.0); Hemoglobin 9.6 g/dl (12.0-16.0); Imm Gran Abs Auto 0.08 X10*3/uL (0.00-0.03); Imm Gran Pct Auto 0.6 % (0.0-0.4); Lymphocytes Absolute Auto 2.7 X10*3/uL (1.2-4.9); Mean Corpuscular HGB Conc 31.5 g/dl (31.0-35.0); Mean Corpuscular Hemoglobin 25.5 pg (27.0-33.0); Mean Corpuscular Volume 81.1 fL (80.0-98.0); Mean Platelet Volume 9.5 fL (9.4-12.3); Monocytes Absolute Auto 1.1 X10*3/uL (0.1-1.2); Monocytes Percent Auto 7.6 % (2-11); Neutrophils Percent Auto 69.5 % (45-73); Platelet Count 604 X10*3/uL (160-400); Red Blood Count 3.76 X10*6/uL (4.20-5.50); Red Cell Distribution Width 16.2 % (11.0-16.0); White Blood Count 14.4 X10*3/uL (4.8-10.8)
[2024-04-08 07:38] VITALS: BP 110/60; PULSE 85; RESP 16; TEMP 36.1; O2SAT 97
[2024-04-08] MEDS: Famotidine 20 MG TABLET PO ×2 (08:18→12:02)
[2024-04-08] MEDS: QUEtiapine Fumarate 50 MG TABLET PO ×2 (08:18→19:46)
[2024-04-08] MEDS: Mirtazapine 7.5 MG TABLET PO (08:18)
[2024-04-08] MEDS: 0.9 % Sodium Chloride Flush 3 ML SYRINGE IVFLUSH ×3 (08:19→19:46)
--- NOTE | 2024-04-08 08:30 | PC.NURSE ---
Pt bathed by SWEEPER DRIVER and positioned onto her back. Waiting for breakfast. Dr Sr in with pt at this time.
[2024-04-08] MEDS: Acetaminophen 325 MG TABLET 650 MG PO ×2 (10:52→15:29)
[2024-04-08] MEDS: oxyCODONE HCl Immed Release 5 MG TABLET PO ×3 (10:53→19:46)
--- NOTE | 2024-04-08 11:26 | HE.PHANOTE ---
RE VANCO DOSING TROUGH IS 16.0 TODAY AND RENAL FUNCTION STABLE. WILL CONTINUE DAILY RENAL FUNCTION MONITORING AND REDRAW VANCO LEVEL 04/10/24 @1100 TO ENSURE CONTINUED APPROPRIATE DOSING. SHE IS SLIGHTLY HIGHER THAN INSIGHT EXPECTS SO WE MAY SEE A TROUGH AROUND 17 ON THE EVEN THOUGH INSIGHT THINKS IT WILL ONLY BE 15.2.
--- NOTE | 2024-04-08 12:38 | PC.NURSE ---
1053- Pt medicated prior to dressing change by IRA Oneal with oxycodone. Dressing changed, tolerated well. 1140- Pt assisted OOB to recliner with sarasteady. initially pt tolerated well. 1220- Pt yellimg out for help, slightly teary eyed. States I treid but I just can't sit in this chair any longer . Pt assisited BTB using sarasteady. Pt encouraged to turn onto side while in bed but refused and wished to remain on back with 2 pillows under her legs
[2024-04-08] MEDS: vancomycin HCL 1,000 MG in 0.9 % Sodium Chloride 250 ML 270 MG IV (12:55)
--- NOTE | 2024-04-08 13:21 | P.PNIM_ITS ---
Subjective Subjective Date of Service: 04/08/24 Interval History: seen and evaluated still complaining of pain in her back denies any fever or chills no more fever no other events Review of Systems Review of Systems: Yes all other systems are reviewed and are negative Physical Exam 2 Vital Signs: Vital Signs: Last Vital Signs Temp 97.0 F 04/08/24 07:38 Pulse 85 04/08/24 07:38 Resp 16 04/08/24 07:38 BP 110/60 04/08/24 07:38 Pulse Ox 97 04/08/24 07:38 O2 Del Method Room Air 04/08/24 07:38 BMI result Body Mass Index 17.6 Const: Other: Constitutional : Awake, interactive, underwieght, not in distress Neck : Normal inspection, Supple Cardiovascular : RRR, no JVP, no lower extremity edema Respiratory : good bilateral air entry, no crackles, wheezes or rhonchi Gastrointestinal: soft, lax, Normal bowel sounds, Non tender Skin : Warm, Dry, two large sacral wounds of 3,4 with erythema and draiange with found smelling. Neurological : Alert & oriented x3, No focal deficit Objective Data Active Medications Acetaminophen (Acetaminophen 325 Mg Tablet) 650 mg PO QSHIFT [facility] Last Admin: 04/08/24 10:52 Dose: 650 mg Documented By: PUMA Atorvastatin Calcium (Atorvastatin Calcium 40 Mg Tablet) 40 mg PO BEDTIME [facility] Last Admin: 04/07/24 19:40 Dose: 40 mg Documented By: ZEYNEP Calcium Carbonate (Calcium Carbonate 750 Mg Tab.Chew) 750 mg PO Q4H PRN PRN Reason: Heartburn Ceftriaxone Sodium (Ceftriaxone Sodium 1 Gm Vial) 1 gm IVPUSH Q24H [facility] Last Admin: 04/08/24 05:20 Dose: 1 gm Documented By: ZEYNEP Enoxaparin Sodium (Enoxaparin Sodium 40 Mg/0.4 Ml Syringe) 40 mg SUBCUT Q24H [facility] Last Admin: 04/08/24 10:53 Dose: Not Given Documented By: PUMA Non-Admin Reason: Patient Refused Famotidine (Famotidine 20 Mg Tablet) 20 mg PO BID@0900,1200 [facility] Last Admin: 04/08/24 12:02 Dose: 20 mg Documented By: PUMA Vancomycin HCl 1,000 mg/ (Sodium Chloride) 270 mls @ 270 mls/hr IV Q24H [facility] Last Admin: 04/08/24 12:55 Dose: 270 mls/hr Documented By: PUMA Lorazepam (Lorazepam 1 Mg Tablet) 1 mg PO BID PRN PRN Reason: anxiety Last Admin: 04/07/24 19:39 Dose: 1 mg Documented By: ZEYNEP Comments: early dose, ok per Magnesium Hydroxide (Milk Of Magnesia 30 Ml Oral.Susp) 30 ml PO DAILY PRN PRN Reason: Constipation Melatonin (Melatonin 3 Mg Tablet) 6 mg PO BEDTIME PRN PRN Reason: Insomnia Mirtazapine (Mirtazapine 7.5 Mg Tablet) 7.5 mg PO DAILY [facility] Last Admin: 04/08/24 08:18 Dose: 7.5 mg Documented By: PUMA Omeprazole (Omeprazole 20 Mg Capsule.Dr) 20 mg PO DAILY@0630 [facility] Last Admin: 04/08/24 05:20 Dose: 20 mg Documented By: ZEYNEP Ondansetron HCl (Ondansetron Hcl 4 Mg/2 Ml Vial) 4 mg IVPUSH Q8H PRN PRN Reason: Nausea and Vomiting Oxycodone HCl (Oxycodone Hcl Immed Release 5 Mg Tablet) 5 mg PO Q4H PRN PRN Reason: Pain, Severe (Pain Scale 7-10) Last Admin: 04/08/24 10:53 Dose: 5 mg Documented By: PUMA Pharmacy Consult (Consult Rx Vancomycin Dosing) 1 each MISCELLANE DAILY PRN PRN Reason: Consult order Psyllium Hydrophilic Mucilloid (Psyllium Seed 3.7 Gm Packet) 3.7 gm PO BEDTIME [facility] Last Admin: 04/07/24 19:43 Dose: Not Given Documented By: ZEYNEP Non-Admin Reason: Patient Refused Quetiapine Fumarate (Quetiapine Fumarate 50 Mg Tablet) 50 mg PO BID [facility] Last Admin: 04/08/24 08:18 Dose: 50 mg Documented By: PUMA Senna/Docusate Sodium (Sennosides/Docusate Sodium Tablet) 0.5 tab PO DAILY [facility] Last Admin: 04/08/24 08:29 Dose: Not Given Documented By: PUMA Non-Admin Reason: Patient Refused Sodium Chloride (0.9 % Sodium Chloride Flush 3 Ml Syringe) 3 ml IVFLUSH QSHIFT [facility] Last Admin: 04/08/24 12:56 Dose: 3 ml Documented By: PUMA Temazepam (Temazepam 15 Mg Capsule) 15 mg PO BEDTIME PRN PRN Reason: sleep Last Admin: 04/07/24 19:39 Dose: 15 mg Documented By: ZEYNEP Labs 04/08/24 05:38 04/08/24 05:38 Labs: Laboratory Results - last 24 hr 04/08/24 04/08/24 05:38 10:59 MCV 81.1 MCH 25.5 L MCHC 31.5 RDW 16.2 H Plt Count 604 H MPV 9.5 Immature Gran % (Auto) 0.6 H Neut % (Auto) 69.5 Lymph % (Auto) 19.0 L Patrick % (Auto) 7.6 Eos % (Auto) 3.0 Baso % (Auto) 0.3 Lymph # (Auto) 2.7 Patrick # (Auto) 1.1 Eos # (Auto) 0.4 Baso # (Auto) 0.1 Abs Immat Gran (auto) 0.08 H Absolute Neuts (auto) 10.0 H Absolute Nucleated RBC 0.000 Nucleated RBC % (auto) 0.0 Anion Gap 15 Estim Creat Clear Calc 52.1 Estimated GFR > 60 Random Glucose 82 Calcium 9.6 Random Vancomycin 16.0 Microbiology Microbiology Results: Microbiology 04/06/24 Unknown Urine Culture - Preliminary Urine Catheterized - Lou Catheter Klebsiella pneumoniae Enterococcus/Streptococcus sp 04/06/24 01:44 Gram Stain - Final Coccyx Routine Culture - Preliminary Gram negative lainey 04/06/24 00:41 Blood Culture - Preliminary Blood - Venous No growth after 48 hours. 04/06/24 00:41 Blood Culture - Preliminary Blood - Venous No growth after 48 hours. Assessment and Plan (1) Acute UTI: Status: Acute (2) Soft tissue infection: Status: Acute (3) Decubitus ulcer: Status: Acute Plan Patient is a 73-year-old female with a past medical history significant for chronic microcytic anemia, Raynaud's GERD, mood disorder, stress induced cardiomyopathy, recurrent C diff decubitus ulcers who presented to the ED last night due to back pain and lower abdominal pain. Testing in ED conclusive for sepsis and UTI, urine culture pending. Sepsis secondary to UTI sepsis resolved culture growing multiple bacteria, pending sensitivity continue Vanco\ Ceftriaxone Hx of MDR , get ID eval Stage IV infected decubitus ulcers A/P CT with sacral decubitus ulcer, new compared from 08/20/2023. Gas within the ulcer comes within 2 mm proximity to the adjacent sacrum, and moderate constipation on vancomycin and ceftriaxone as above continue tramadol as needed for pain Wound care following Surgery consulted and will follow if any intervention needed Constipation CT normal aside from chronic constipation improved with Senna\Colace with MEtamucil Chronic microcytic anemia stable, monitor Moderate malnutrition Add Ensure to diet GERD continue famotidine and pantoprazole HTN hold metoprolol due to low BP Mood disorder continue mirtazapine, quetiapine and temazepam DNR/DNI DVT PPx: lovenox Pt with sepsis, UTI and stage 4 decubitus ulcers, requiring admission for overnight for IV antibiotics pending surgery evaluation Quality Stroke Does the patient have a stroke diagnosis?: No VTE Prior VTE?: No VTE Risk Level:: Medical - moderate - high VTE Device Contraindication: Treatment Not Tolerated VTE Drug Contraindication: N/A - Med Ordered
[2024-04-08 15:46] VITALS: BP 101/59; PULSE 79; RESP 12; TEMP 36.6; O2SAT 93
--- NOTE | 2024-04-08 18:43 | PC.NURSE ---
Patient continuously ringing call goddard with frequent and multiple complaints/requests. Needy and attention seeking. Patient repositioned every 2 hours and frequent albin care given. Increased anxiety but denied need for prn anxiety meds for fear that she would not be able to take it at night as she usually does. Declined dinner tray stating that she does not eat dinner. Wound care done and tolerated well. Requests prn pain meds appropriately
[2024-04-08 19:33] VITALS: BP 131/58; PULSE 81; RESP 14; TEMP 36.5; O2SAT 97
[2024-04-08] MEDS: LORazepam 1 MG TABLET PO (19:46)
[2024-04-08] MEDS: Temazepam 15 MG CAPSULE PO (19:46)
[2024-04-08] MEDS: Atorvastatin Calcium 40 MG TABLET PO (19:46)
[2024-04-08] MEDS: Morphine Sulfate 2 MG/ML CARTRIDGE IVPUSH (21:05)
--- NOTE | 2024-04-08 21:10 | MHC.PIE ---
p; pt c/o pain 20/10. prn oxy given with no result per pt, pt reporting 20/10 pain to back, pt now crying and accusing MD from previous shift causing increased pain while assessing wounds. i; dr petersen notified. new order morphine 2mg iv now e; will cont to monitor
--- NOTE | 2024-04-09 00:32 | P.CNID_ITS ---
History of Present Illness Data of Consult Service Date: 04/08/24 Requesting physician: Karla Sr Primary Care Provider: Aniyah Mcgregor MD HPI Reason for consult: fever unknown origin She presents with temperature 100.8 as well as fatigue and pain sacral area. She reports ulcer last month sacrum. Review of Systems 2 Review of Systems: Yes all other systems are reviewed and are negative [facility] Past Medical History Medical History Recurrent Clostridioides difficile diarrhea External hemorrhoids Epidermal inclusion cyst White coat syndrome with high blood pressure but without hypertension Dry eyes Hyponatremia Hypercalcemia Diarrhea Renal calculi Constipation by delayed colonic transit GERD (gastroesophageal reflux disease) UTI (urinary tract infection) Villous adenoma of colon Insomnia Raynauds disease Anxiety Family History Family History Father Medical history unknown Mother Dementia Alzheimers disease Mental health disorder Brother Leukemia Sister Medical history unknown Family history: reviewed and not pertinent Surgical History Surgical History History of bronchoscopy History of tonsillectomy Social History Social History Household Members: None Household Members Other:: long-term Housing: Apartment Housing Other:: Leah Elkins prior to admission. Do you presently have visiting nurse or other home services: Yes ([employer]) Alcohol intake: former Patient Tobacco Use Status: Former Tobacco user Tobacco use type: Cigarette Smoked in Last 30 Days: No e-Cigarette/Vaping Use: Never Used Second Hand Smoke Exposure: No Use of substances other than those prescribed or required for medical reasons: No Currently Displaying Signs/Symptoms of Drug Intoxication Withdrawal: No Have you been hit, kicked, punched, or otherwise hurt by someone within the past year? If so, by whom?: No Do you feel safe in your current relationship?: No Current Relationship Is there a partner from a previous relationship who is making you feel unsafe now?: No Are you made to feel afraid or neglected: No Advance Directives: Yes Advance Directives on File: Yes Advance Directives Date on File: 11/23/22 Do you have a plan to hurt others: No Plan Recently lost weight without trying: Unsure How much weight loss: Unsure Eating poorly because of decreased appetite: Yes Nutrition screen score: 5 Patient : No : No Poor oral hygiene: No service: No Current occupational status: retired Cognitive needs: No Hearing needs: No Vision needs: Yes Meds Allergies Allergy/AdvReac Type Severity Reaction Status Date / Time No Known Allergies Allergy Verified 04/05/24 22:08 Active Medications: Current Medications Acetaminophen (Acetaminophen 325 Mg Tablet) 650 mg PO QSHIFT [facility] Last Admin: 04/08/24 19:51 Dose: Not Given Atorvastatin Calcium (Atorvastatin Calcium 40 Mg Tablet) 40 mg PO BEDTIME [facility] Last Admin: 04/08/24 19:46 Dose: 40 mg Calcium Carbonate (Calcium Carbonate 750 Mg Tab.Chew) 750 mg PO Q4H PRN PRN Reason: Heartburn Ceftriaxone Sodium (Ceftriaxone Sodium 1 Gm Vial) 1 gm IVPUSH Q24H [facility] Last Admin: 04/08/24 05:20 Dose: 1 gm Enoxaparin Sodium (Enoxaparin Sodium 40 Mg/0.4 Ml Syringe) 40 mg SUBCUT Q24H [facility] Last Admin: 04/08/24 10:53 Dose: Not Given Famotidine (Famotidine 20 Mg Tablet) 20 mg PO BID@0900,1200 [facility] Last Admin: 04/08/24 12:02 Dose: 20 mg Vancomycin HCl 1,000 mg/ (Sodium Chloride) 270 mls @ 270 mls/hr IV Q24H [facility] Last Infusion: 04/08/24 14:27 Dose: Infused Lorazepam (Lorazepam 1 Mg Tablet) 1 mg PO BID PRN PRN Reason: anxiety Last Admin: 04/08/24 19:46 Dose: 1 mg Magnesium Hydroxide (Milk Of Magnesia 30 Ml Oral.Susp) 30 ml PO DAILY PRN PRN Reason: Constipation Melatonin (Melatonin 3 Mg Tablet) 6 mg PO BEDTIME PRN PRN Reason: Insomnia Mirtazapine (Mirtazapine 7.5 Mg Tablet) 7.5 mg PO DAILY [facility] Last Admin: 04/08/24 08:18 Dose: 7.5 mg Omeprazole (Omeprazole 20 Mg Capsule.Dr) 20 mg PO DAILY@0630 [facility] Last Admin: 04/08/24 05:20 Dose: 20 mg Ondansetron HCl (Ondansetron Hcl 4 Mg/2 Ml Vial) 4 mg IVPUSH Q8H PRN PRN Reason: Nausea and Vomiting Oxycodone HCl (Oxycodone Hcl Immed Release 5 Mg Tablet) 5 mg PO Q4H PRN PRN Reason: Pain, Severe (Pain Scale 7-10) Last Admin: 04/08/24 19:46 Dose: 5 mg Pharmacy Consult (Consult Rx Vancomycin Dosing) 1 each MISCELLANE DAILY PRN PRN Reason: Consult order Psyllium Hydrophilic Mucilloid (Psyllium Seed 3.7 Gm Packet) 3.7 gm PO BEDTIME [facility] Last Admin: 04/08/24 19:47 Dose: Not Given Quetiapine Fumarate (Quetiapine Fumarate 50 Mg Tablet) 50 mg PO BID [facility] Last Admin: 04/08/24 19:46 Dose: 50 mg Senna/Docusate Sodium (Sennosides/Docusate Sodium Tablet) 0.5 tab PO DAILY [facility] Last Admin: 04/08/24 08:29 Dose: Not Given Sodium Chloride (0.9 % Sodium Chloride Flush 3 Ml Syringe) 3 ml IVFLUSH QSHIFT [facility] Last Admin: 04/08/24 19:46 Dose: 3 ml Temazepam (Temazepam 15 Mg Capsule) 15 mg PO BEDTIME PRN PRN Reason: sleep Last Admin: 04/08/24 19:46 Dose: 15 mg Physical Exam 2 Vital Signs: Vital Signs: Last Vital Signs Temp 97.7 F 04/08/24 19:33 Pulse 81 04/08/24 19:33 Resp 14 04/08/24 19:33 BP 131/58 L 04/08/24 19:33 Pulse Ox 97 04/08/24 19:33 O2 Del Method Room Air 04/08/24 15:46 BMI result Body Mass Index 17.6 Const: General: cooperative HEENT: Head: Yes normal to inspection Face and sinus: Yes normal facial exam Mouth: Normal oral and palatal mucosa present Teeth and gingiva: d entition normal Eyes: General: appearance normal, both eyes and all related structures P upils: Equal, round and reactive pupils present Resp: Effort & Inspection: normal respiratory effort Cardio: Rate: regular rate Rhythm: regular rhythm GI: Palpation (GI): Soft to palpation and nontender Back/Spine/Pelvis: Other: sacral ulcer stage 3,open through epidermal layers,feel muscle/tendon Skin: General skin exam: no rashes or lesions noted Neuro: General: moves all extremities Cranial nerves: Yes Equal, round and reactive pupils present Extrem: General: Yes normal to inspection Psych: Appearance: grossly normal Results Labs 04/08/24 05:38 04/08/24 05:38 Labs: Short CBC 04/08/24 Range/Units 05:38 WBC 14.4 H (4.8-10.8) X10*3/uL Hgb 9.6 L (12.0-16.0) g/dl Hct 30.5 L (37.0-47.0) % Plt Count 604 H (160-400) X10*3/uL BMP 04/08/24 05:38 Sodium 140 Potassium 3.3 Chloride 111 H Carbon Dioxide 17 L BUN 11 Creatinine 0.60 Calcium 9.6 Microbiology Microbiology Results: Microbiology 04/06/24 Unknown Urine Catheterized - Lou Catheter Urine Culture - Preliminary Klebsiella pneumoniae Enterococcus/Streptococcus sp 04/06/24 01:44 Coccyx Gram Stain - Final 04/06/24 01:44 Coccyx Routine Culture - Preliminary Gram negative lainey 04/06/24 00:41 Blood - Venous Blood Culture - Preliminary No growth after 48 hours. 04/06/24 00:41 Blood - Venous Blood Culture - Preliminary No growth after 48 hours. Assessment and Plan (1) Decubitus ulcer: Qualifiers: Pressure injury location: sacral region Pressure injury stage: stage 4 Qualified Code(s): L89.154 - Pressure ulcer of sacral region, stage 4 Status: Acute (2) Right hip pain: Status: Acute Plan Concern over right sacral deep wound infection. Prior recurrent Cdiff Continue Vancomycin and Ceftriaxone,possible 4-6 weeks. Await blood culture If diarrhea start p o Vancomycin 125 qid See Plastic Surgery assess ability to heal or need potential skin graft.
[2024-04-09 04:08] VITALS: BP 126/59; PULSE 80; RESP 14; TEMP 36.6; O2SAT 96
[2024-04-09] MEDS: cefTRIAXone sodium 1 GM VIAL IVPUSH (04:36)
[2024-04-09] MEDS: oxyCODONE HCl Immed Release 5 MG TABLET PO ×4 (04:36→16:58)
[2024-04-09] MEDS: Omeprazole 20 MG CAPSULE.DR PO (04:36)
[2024-04-09 06:27] LABS: MANUAL DIFF FLAG NO
[2024-04-09 06:38] LABS: Basophils Absolute Auto 0.1 X10*3/uL (0.0-0.2); Basophils Percent Auto 0.4 % (0-2); Eosinophils Absolute Auto 0.5 X10*3/uL (0.0-0.4); Eosinophils Percent Auto 3.4 % (0-4); Hematocrit 29.4 % (37.0-47.0); Imm Gran Pct Auto 0.6 % (0.0-0.4); Lymphocytes Absolute Auto 2.7 X10*3/uL (1.2-4.9); Mean Corpuscular HGB Conc 30.6 g/dl (31.0-35.0); Mean Corpuscular Hemoglobin 24.9 pg (27.0-33.0); Mean Corpuscular Volume 81.4 fL (80.0-98.0); Mean Platelet Volume 9.1 fL (9.4-12.3); Monocytes Absolute Auto 1.2 X10*3/uL (0.1-1.2); Monocytes Percent Auto 7.6 % (2-11); Neutrophils Absolute Auto 11.1 x10*3/uL (2.0-8.3); Platelet Count 639 X10*3/uL (160-400); Red Blood Count 3.61 X10*6/uL (4.20-5.50); Red Cell Distribution Width 16.3 % (11.0-16.0); White Blood Count 15.6 X10*3/uL (4.8-10.8)
[2024-04-09 06:46] LABS: Anion Gap 14 (12-20); Blood Urea Nitrogen 14 mg/dL (9-16); Calcium 10.2 mg/dL (8.4-10.2); Carbon Dioxide 20 mmol/L (22-29); Chloride 111 mmol/L (96-108); Creatinine Clr Calc Pharmacy 47.4; Estimated Glomerular Filt Rate > 60; Glucose Random 80 mg/dL (60-115); Potassium 3.4 mmol/L (3.3-5.1); Sodium 142 mmol/L (135-145)
[2024-04-09 08:00] VITALS: BP 145/63; PULSE 97; RESP 16; TEMP 36.6; O2SAT 98
[2024-04-09 08:07] LABS: Alanine Aminotransferase 43 U/L (0-31); Albumin Level 2.9 g/dL (3.5-5.0); Aspartate Amino Transferase 33 U/L (5-31); Bilirubin Direct 0.1 mg/dL (0.0-0.5); Total Protein 6.5 g/dL (6.5-8.0)
[2024-04-09 08:13] LABS: Alkaline Phosphatase 123 U/L (39-117); Bilirubin Total 0.2 mg/dL (0.0-1.0)
[2024-04-09] MEDS: 0.9 % Sodium Chloride Flush 3 ML SYRINGE IVFLUSH ×3 (09:01→20:19)
[2024-04-09] MEDS: Mirtazapine 7.5 MG TABLET PO (09:02)
[2024-04-09] MEDS: Acetaminophen 325 MG TABLET 650 MG PO ×2 (09:02→16:59)
[2024-04-09] MEDS: QUEtiapine Fumarate 50 MG TABLET PO ×2 (09:02→20:19)
[2024-04-09] MEDS: Famotidine 20 MG TABLET PO ×2 (09:02→11:39)
--- NOTE | 2024-04-09 12:54 | PC.NURSE ---
Pt was encouraged to sit up more for lunch to avoid aspiration, pt refused.
--- NOTE | 2024-04-09 13:42 | P.PNIM_ITS ---
Subjective Subjective Date of Service: 04/09/24 Interval History: seen and evaluated complaining of pain in her back denies any fever or chills no other events Review of Systems Review of Systems: Yes all other systems are reviewed and are negative Physical Exam 2 Vital Signs: Vital Signs: Last Vital Signs Temp 97.8 F 04/09/24 08:00 Pulse 97 04/09/24 08:00 Resp 16 04/09/24 08:00 BP 145/63 H 04/09/24 08:00 Pulse Ox 98 04/09/24 08:00 O2 Del Method Room Air 04/09/24 08:00 BMI result Body Mass Index 17.6 Const: Other: Constitutional : Awake, interactive, underwieght, not in distress Neck : Normal inspection, Supple Cardiovascular : RRR, no JVP, no lower extremity edema Respiratory : good bilateral air entry, no crackles, wheezes or rhonchi Gastrointestinal: soft, lax, Normal bowel sounds, Non tender Skin : Warm, Dry, two large sacral wounds of 3,4 with erythema and draiange with found smelling. Neurological : Alert & oriented x3, No focal deficit Objective Data Active Medications Acetaminophen (Acetaminophen 325 Mg Tablet) 650 mg PO QSHIFT [facility] Last Admin: 04/09/24 09:02 Dose: 650 mg Documented By: PUMA Atorvastatin Calcium (Atorvastatin Calcium 40 Mg Tablet) 40 mg PO BEDTIME [facility] Last Admin: 04/08/24 19:46 Dose: 40 mg Documented By: ZEYNEP Calcium Carbonate (Calcium Carbonate 750 Mg Tab.Chew) 750 mg PO Q4H PRN PRN Reason: Heartburn Ceftriaxone Sodium (Ceftriaxone Sodium 1 Gm Vial) 1 gm IVPUSH Q24H [facility] Last Admin: 04/09/24 04:36 Dose: 1 gm Documented By: ZEYNEP Enoxaparin Sodium (Enoxaparin Sodium 40 Mg/0.4 Ml Syringe) 40 mg SUBCUT Q24H [facility] Last Admin: 04/09/24 11:39 Dose: Not Given Documented By: PUMA Non-Admin Reason: Patient Refused Famotidine (Famotidine 20 Mg Tablet) 20 mg PO BID@0900,1200 [facility] Last Admin: 04/09/24 11:39 Dose: 20 mg Documented By: PUMA Vancomycin HCl 1,000 mg/ (Sodium Chloride) 270 mls @ 270 mls/hr IV Q24H [facility] Last Infusion: 04/08/24 14:27 Dose: Infused Documented By: PUMA Lorazepam (Lorazepam 1 Mg Tablet) 1 mg PO BID PRN PRN Reason: anxiety Last Admin: 04/08/24 19:46 Dose: 1 mg Documented By: ZEYNEP Magnesium Hydroxide (Milk Of Magnesia 30 Ml Oral.Susp) 30 ml PO DAILY PRN PRN Reason: Constipation Melatonin (Melatonin 3 Mg Tablet) 6 mg PO BEDTIME PRN PRN Reason: Insomnia Mirtazapine (Mirtazapine 7.5 Mg Tablet) 7.5 mg PO DAILY [facility] Last Admin: 04/09/24 09:02 Dose: 7.5 mg Documented By: PUMA Omeprazole (Omeprazole 20 Mg Capsule.Dr) 20 mg PO DAILY@0630 [facility] Last Admin: 04/09/24 04:36 Dose: 20 mg Documented By: ZEYNEP Ondansetron HCl (Ondansetron Hcl 4 Mg/2 Ml Vial) 4 mg IVPUSH Q8H PRN PRN Reason: Nausea and Vomiting Oxycodone HCl (Oxycodone Hcl Immed Release 5 Mg Tablet) 5 mg PO Q4H PRN PRN Reason: Pain, Severe (Pain Scale 7-10) Last Admin: 04/09/24 12:40 Dose: 5 mg Documented By: LISETTE Pharmacy Consult (Consult Rx Vancomycin Dosing) 1 each MISCELLANE DAILY PRN PRN Reason: Consult order Psyllium Hydrophilic Mucilloid (Psyllium Seed 3.7 Gm Packet) 3.7 gm PO BEDTIME [facility] Last Admin: 04/08/24 19:47 Dose: Not Given Documented By: ZEYNEP Non-Admin Reason: Patient Refused Quetiapine Fumarate (Quetiapine Fumarate 50 Mg Tablet) 50 mg PO BID [facility] Last Admin: 04/09/24 09:02 Dose: 50 mg Documented By: PUMA Senna/Docusate Sodium (Sennosides/Docusate Sodium Tablet) 0.5 tab PO DAILY [facility] Last Admin: 04/09/24 07:31 Dose: Not Given Documented By: PUMA Non-Admin Reason: Patient Refused Sodium Chloride (0.9 % Sodium Chloride Flush 3 Ml Syringe) 3 ml IVFLUSH QSHIFT [facility] Last Admin: 04/09/24 09:01 Dose: 3 ml Documented By: PUMA Temazepam (Temazepam 15 Mg Capsule) 15 mg PO BEDTIME PRN PRN Reason: sleep Last Admin: 04/08/24 19:46 Dose: 15 mg Documented By: ZEYNEP Labs 04/09/24 05:38 04/09/24 05:38 Labs: Laboratory Results - last 24 hr 04/09/24 05:38 MCV 81.4 MCH 24.9 L MCHC 30.6 L RDW 16.3 H Plt Count 639 H MPV 9.1 L Immature Gran % (Auto) 0.6 H Neut % (Auto) 71.0 Lymph % (Auto) 17.0 L [place] % (Auto) 7.6 Eos % (Auto) 3.4 Baso % (Auto) 0.4 Lymph # (Auto) 2.7 [place] # (Auto) 1.2 Eos # (Auto) 0.5 H Baso # (Auto) 0.1 Abs Immat Gran (auto) 0.10 H Absolute Neuts (auto) 11.1 H Absolute Nucleated RBC 0.000 Nucleated RBC % (auto) 0.0 Anion Gap 14 Estim Creat Clear Calc 47.4 Estimated GFR > 60 Random Glucose 80 Calcium 10.2 D Total Bilirubin 0.2 Direct Bilirubin 0.1 AST 33 H ALT 43 H Alkaline Phosphatase 123 H Total Protein 6.5 Albumin 2.9 L Microbiology Microbiology Results: Microbiology 04/06/24 Unknown Urine Culture - Preliminary Urine Catheterized - Lou Catheter Klebsiella pneumoniae Enterococcus/Streptococcus sp 04/06/24 01:44 Gram Stain - Final Coccyx Routine Culture - Final Acinetobacter baumannii Proteus mirabilis Assessment and Plan (1) Acute UTI: Status: Acute (2) Decubitus ulcer: Status: Acute (3) Soft tissue infection: Status: Acute Plan Patient is a 73-year-old female with a past medical history significant for chronic microcytic anemia, Raynaud's GERD, mood disorder, stress induced cardiomyopathy, recurrent C diff decubitus ulcers who presented to the ED last night due to back pain and lower abdominal pain. Testing in ED conclusive for sepsis and UTI, urine culture pending. Sepsis secondary to UTI sepsis resolved culture growing multiple bacteria, pending sensitivity continue Vanco\ Ceftriaxone Hx of MDR , ID eval , Vancomycin and Ceftriaxone 4-6 weeks Get a PICC line If diarrhea start Vancomycin PO qid Needs plastic surgery eval to assess ability to heal or need potential skin graft. as OP. Stage IV infected decubitus ulcers A/P CT with sacral decubitus ulcer, new compared from 08/20/2023. Gas within the ulcer comes within 2 mm proximity to the adjacent sacrum, and moderate constipation on vancomycin and ceftriaxone as above continue tramadol as needed for pain Wound care following Surgery rec NPO for possible intervention tomorrow. Constipation CT normal aside from chronic constipation improved with Senna\Colace with MEtamucil Chronic microcytic anemia stable, monitor Moderate malnutrition Add Ensure to diet GERD continue famotidine and pantoprazole HTN hold metoprolol due to low BP Mood disorder continue mirtazapine, quetiapine and temazepam DNR/DNI DVT PPx: lovenox Pt with sepsis, UTI and stage 4 decubitus ulcers, requiring admission for overnight for IV antibiotics pending surgery evaluation Quality Stroke Does the patient have a stroke diagnosis?: No VTE Prior VTE?: No VTE Risk Level:: Medical - moderate - high VTE Device Contraindication: Treatment Not Tolerated VTE Drug Contraindication: N/A - Med Ordered
[2024-04-09] MEDS: vancomycin HCL 1,000 MG in 0.9 % Sodium Chloride 250 ML 270 MG IV (13:50)
[2024-04-09 15:21] VITALS: BP 124/72; PULSE 86; RESP 16; TEMP 36.6; O2SAT 95
[2024-04-09 19:16] VITALS: BP 99/53; PULSE 81; RESP 16; TEMP 36.4; O2SAT 96
[2024-04-09] MEDS: Atorvastatin Calcium 40 MG TABLET PO (20:19)
[2024-04-09] MEDS: Temazepam 15 MG CAPSULE PO (20:19)
[2024-04-09] MEDS: LORazepam 1 MG TABLET PO (20:19)
[2024-04-10 03:45] VITALS: BP 112/56; PULSE 73; RESP 14; TEMP 36; O2SAT 97
[2024-04-10] MEDS: oxyCODONE HCl Immed Release 5 MG TABLET PO ×3 (03:56→20:56)
[2024-04-10] MEDS: Omeprazole 20 MG CAPSULE.DR PO (05:43)
[2024-04-10] MEDS: cefTRIAXone sodium 1 GM VIAL IVPUSH (05:43)
[2024-04-10 05:51] LABS: Hematocrit 25.6 % (37.0-47.0); Hemoglobin 7.8 g/dl (12.0-16.0); Mean Corpuscular HGB Conc 30.5 g/dl (31.0-35.0); Mean Corpuscular Hemoglobin 24.9 pg (27.0-33.0); Mean Corpuscular Volume 81.8 fL (80.0-98.0); Mean Platelet Volume 8.7 fL (9.4-12.3); Platelet Count 588 X10*3/uL (160-400); Red Blood Count 3.13 X10*6/uL (4.20-5.50); Red Cell Distribution Width 16.3 % (11.0-16.0); White Blood Count 10.3 X10*3/uL (4.8-10.8)
[2024-04-10 06:10] LABS: Anion Gap 12 (12-20); Blood Urea Nitrogen 15 mg/dL (9-16); Calcium 9.5 mg/dL (8.4-10.2); Carbon Dioxide 21 mmol/L (22-29); Chloride 112 mmol/L (96-108); Creatinine Clr Calc Pharmacy 52.1; Estimated Glomerular Filt Rate > 60; Glucose Random 88 mg/dL (60-115); Potassium 3.4 mmol/L (3.3-5.1); Sodium 142 mmol/L (135-145)
[2024-04-10 08:00] VITALS: BP 118/58; PULSE 87; RESP 14; TEMP 36; O2SAT 98
--- NOTE | 2024-04-10 08:22 | P.PNGS_ITS ---
Subjective Subjective Date of Service: 04/10/24 Interval history: Denies any new complaints Good GI function No fever Physical Exam 2 Vital Signs: Vital Signs: Last Vital Signs Temp 96.8 F 04/10/24 03:45 Pulse 73 04/10/24 03:45 Resp 14 04/10/24 03:45 BP 112/56 L 04/10/24 03:45 Pulse Ox 97 04/10/24 03:45 O2 Del Method Room Air 04/10/24 03:45 BMI result Body Mass Index 17.6 Const: Other: Bed-bound General: comfortable and no acute distress Resp: Effort & Inspection: normal respiratory effort Cardio: Rate: regular rate GI: Palpation (GI): Soft to palpation, not firm and nontender Back/Spine/Pelvis: Other: Sacral decubitus ulcer x2 1 the midline to the right midline, clean, no pus, scanty fibrinous debris the 1 right, no eschar, no gangrene, both ulcers stage 2 Objective Data Active Medications Acetaminophen (Acetaminophen 325 Mg Tablet) 650 mg PO QSHIFT [facility] Last Admin: 04/09/24 23:57 Dose: Not Given Documented By: LORRAINE Non-Admin Reason: Patient Refused Atorvastatin Calcium (Atorvastatin Calcium 40 Mg Tablet) 40 mg PO BEDTIME [facility] Last Admin: 04/09/24 20:19 Dose: 40 mg Documented By: LORRAINE Calcium Carbonate (Calcium Carbonate 750 Mg Tab.Chew) 750 mg PO Q4H PRN PRN Reason: Heartburn Ceftriaxone Sodium (Ceftriaxone Sodium 1 Gm Vial) 1 gm IVPUSH Q24H [facility] Last Admin: 04/10/24 05:43 Dose: 1 gm Documented By: LORRAINE Enoxaparin Sodium (Enoxaparin Sodium 40 Mg/0.4 Ml Syringe) 40 mg SUBCUT Q24H [facility] Last Admin: 04/09/24 11:39 Dose: Not Given Documented By: PUMA Non-Admin Reason: Patient Refused Famotidine (Famotidine 20 Mg Tablet) 20 mg PO BID@0900,1200 [facility] Last Admin: 04/09/24 11:39 Dose: 20 mg Documented By: PUMA Vancomycin HCl 1,000 mg/ (Sodium Chloride) 270 mls @ 270 mls/hr IV Q24H [facility] Last Infusion: 04/09/24 15:06 Dose: Infused Documented By: PUMA Lorazepam (Lorazepam 1 Mg Tablet) 1 mg PO BID PRN PRN Reason: anxiety Last Admin: 04/09/24 20:19 Dose: 1 mg Documented By: LORRAINE Magnesium Hydroxide (Milk Of Magnesia 30 Ml Oral.Susp) 30 ml PO DAILY PRN PRN Reason: Constipation Melatonin (Melatonin 3 Mg Tablet) 6 mg PO BEDTIME PRN PRN Reason: Insomnia Mirtazapine (Mirtazapine 7.5 Mg Tablet) 7.5 mg PO DAILY [facility] Last Admin: 04/09/24 09:02 Dose: 7.5 mg Documented By: PUMA Omeprazole (Omeprazole 20 Mg Capsule.Dr) 20 mg PO DAILY@0630 [facility] Last Admin: 04/10/24 05:43 Dose: 20 mg Documented By: LORRAINE Ondansetron HCl (Ondansetron Hcl 4 Mg/2 Ml Vial) 4 mg IVPUSH Q8H PRN PRN Reason: Nausea and Vomiting Oxycodone HCl (Oxycodone Hcl Immed Release 5 Mg Tablet) 5 mg PO Q4H PRN PRN Reason: Pain, Severe (Pain Scale 7-10) Last Admin: 04/10/24 03:56 Dose: 5 mg Documented By: LORRAINE Pharmacy Consult (Consult Rx Vancomycin Dosing) 1 each MISCELLANE DAILY PRN PRN Reason: Consult order Psyllium Hydrophilic Mucilloid (Psyllium Seed 3.7 Gm Packet) 3.7 gm PO BEDTIME [facility] Last Admin: 04/09/24 20:22 Dose: Not Given Documented By: LORRAINE Non-Admin Reason: Patient Refused Quetiapine Fumarate (Quetiapine Fumarate 50 Mg Tablet) 50 mg PO BID [facility] Last Admin: 04/09/24 20:19 Dose: 50 mg Documented By: LORRAINE Senna/Docusate Sodium (Sennosides/Docusate Sodium Tablet) 0.5 tab PO DAILY [facility] Last Admin: 04/09/24 07:31 Dose: Not Given Documented By: PUMA Non-Admin Reason: Patient Refused Sodium Chloride (0.9 % Sodium Chloride Flush 3 Ml Syringe) 3 ml IVFLUSH QSHIFT [facility] Last Admin: 04/09/24 20:19 Dose: 3 ml Documented By: LORRAINE Temazepam (Temazepam 15 Mg Capsule) 15 mg PO BEDTIME PRN PRN Reason: sleep Last Admin: 04/09/24 20:19 Dose: 15 mg Documented By: LORRAINE Labs 04/10/24 05:24 04/10/24 05:24 Labs: Laboratory Results - last 24 hr 04/10/24 05:24 MCV 81.8 MCH 24.9 L MCHC 30.5 L RDW 16.3 H Plt Count 588 H MPV 8.7 L Absolute Nucleated RBC 0.000 Nucleated RBC % (auto) 0.0 Anion Gap 12 Estim Creat Clear Calc 52.1 Estimated GFR > 60 Random Glucose 88 Calcium 9.5 D Microbiology Microbiology Results: Microbiology 04/06/24 Unknown Urine Culture - Preliminary Urine Catheterized - Lou Catheter Klebsiella pneumoniae Enterococcus faecalis 04/06/24 01:44 Gram Stain - Final Coccyx Routine Culture - Final Acinetobacter baumannii Proteus mirabilis Procedures Date of Service Date of Service: 04/10/24 Progress Note: A&P Assessment and plan (1) Stage II pressure ulcer of sacral region: Status: Acute Assessment and Plan: I have changed dressings for both ulcers with silver alginate No need for debridement at this time Good bedsore precautions with moving the patient's [id number] Avoid shearing forces when moving the patient Nutritional up building Time Spent With Patient Time: Total time managing care of this patient today ____ minutes. Quality Stroke Does the patient have a stroke diagnosis?: No VTE Prior VTE?: No VTE Risk Level:: Medical - moderate - high VTE Device Contraindication: Treatment Not Tolerated VTE Drug Contraindication: N/A - Med Ordered
[2024-04-10] MEDS: Famotidine 20 MG TABLET PO ×2 (08:45→13:24)
[2024-04-10] MEDS: QUEtiapine Fumarate 50 MG TABLET PO ×2 (08:45→19:40)
[2024-04-10] MEDS: LORazepam 1 MG TABLET PO ×2 (08:45→19:40)
[2024-04-10] MEDS: Mirtazapine 7.5 MG TABLET PO (08:45)
[2024-04-10] MEDS: Acetaminophen 325 MG TABLET 650 MG PO (08:46)
[2024-04-10] MEDS: Sennosides/Docusate Sodium TABLET 0.5 TAB PO (08:46)
--- NOTE | 2024-04-10 09:41 | HO.PM.IMPN ---
Subjective Subjective Date of Service: 04/10/24 Interval History: seen and evaluated Wounds feel better but still reporting back pain denies any fever or chills no other events Review of Systems Review of Systems: Yes all other systems are reviewed and are negative Physical Exam Vital Signs: Vital Signs: Last Vital Signs Temp 96.8 F 04/10/24 08:00 Pulse 87 04/10/24 08:00 Resp 14 04/10/24 08:00 BP 118/58 L 04/10/24 08:00 Pulse Ox 98 04/10/24 08:00 O2 Del Method Room Air 04/10/24 08:00 BMI result Body Mass Index 17.6 Const: Other: Constitutional : Awake, interactive, underwieght, not in distress Neck : Normal inspection, Supple Cardiovascular : RRR, no JVP, no lower extremity edema Respiratory : good bilateral air entry, no crackles, wheezes or rhonchi Gastrointestinal: soft, lax, Normal bowel sounds, Non tender Skin : Warm, Dry, two open sacral wounds of 3,4 with less erythema and draiange with found smelling. Neurological : Alert & oriented x3, No focal deficit Objective Data Active Medications Acetaminophen (Acetaminophen 325 Mg Tablet) 650 mg PO QSHIFT [facility] Last Admin: 04/10/24 08:46 Dose: 650 mg Documented By: GITA Atorvastatin Calcium (Atorvastatin Calcium 40 Mg Tablet) 40 mg PO BEDTIME [facility] Last Admin: 04/09/24 20:19 Dose: 40 mg Documented By: LORRAINE Calcium Carbonate (Calcium Carbonate 750 Mg Tab.Chew) 750 mg PO Q4H PRN PRN Reason: Heartburn Ceftriaxone Sodium (Ceftriaxone Sodium 1 Gm Vial) 1 gm IVPUSH Q24H [facility] Last Admin: 04/10/24 05:43 Dose: 1 gm Documented By: LORRAINE Enoxaparin Sodium (Enoxaparin Sodium 40 Mg/0.4 Ml Syringe) 40 mg SUBCUT Q24H [facility] Last Admin: 04/09/24 11:39 Dose: Not Given Documented By: PUMA Non-Admin Reason: Patient Refused Famotidine (Famotidine 20 Mg Tablet) 20 mg PO BID@0900,1200 [facility] Last Admin: 04/10/24 08:45 Dose: 20 mg Documented By: GITA Vancomycin HCl 1,000 mg/ (Sodium Chloride) 270 mls @ 270 mls/hr IV Q24H [facility] Last Infusion: 04/09/24 15:06 Dose: Infused Documented By: PUMA Lorazepam (Lorazepam 1 Mg Tablet) 1 mg PO BID PRN PRN Reason: anxiety Last Admin: 04/10/24 08:45 Dose: 1 mg Documented By: GITA Magnesium Hydroxide (Milk Of Magnesia 30 Ml Oral.Susp) 30 ml PO DAILY PRN PRN Reason: Constipation Melatonin (Melatonin 3 Mg Tablet) 6 mg PO BEDTIME PRN PRN Reason: Insomnia Mirtazapine (Mirtazapine 7.5 Mg Tablet) 7.5 mg PO DAILY [facility] Last Admin: 04/10/24 08:45 Dose: 7.5 mg Documented By: GITA Omeprazole (Omeprazole 20 Mg Capsule.Dr) 20 mg PO DAILY@0630 [facility] Last Admin: 04/10/24 05:43 Dose: 20 mg Documented By: LORRAINE Ondansetron HCl (Ondansetron Hcl 4 Mg/2 Ml Vial) 4 mg IVPUSH Q8H PRN PRN Reason: Nausea and Vomiting Oxycodone HCl (Oxycodone Hcl Immed Release 5 Mg Tablet) 5 mg PO Q4H PRN PRN Reason: Pain, Severe (Pain Scale 7-10) Last Admin: 04/10/24 08:45 Dose: 5 mg Documented By: GITA Pharmacy Consult (Consult Rx Vancomycin Dosing) 1 each MISCELLANE DAILY PRN PRN Reason: Consult order Psyllium Hydrophilic Mucilloid (Psyllium Seed 3.7 Gm Packet) 3.7 gm PO BEDTIME [facility] Last Admin: 04/09/24 20:22 Dose: Not Given Documented By: LORRAINE Non-Admin Reason: Patient Refused Quetiapine Fumarate (Quetiapine Fumarate 50 Mg Tablet) 50 mg PO BID [facility] Last Admin: 04/10/24 08:45 Dose: 50 mg Documented By: GITA Senna/Docusate Sodium (Sennosides/Docusate Sodium Tablet) 0.5 tab PO DAILY [facility] Last Admin: 04/10/24 08:46 Dose: 0.5 tab Documented By: GITA Sodium Chloride (0.9 % Sodium Chloride Flush 3 Ml Syringe) 3 ml IVFLUSH QSHIFT [facility] Last Admin: 04/09/24 20:19 Dose: 3 ml Documented By: LORRAINE Temazepam (Temazepam 15 Mg Capsule) 15 mg PO BEDTIME PRN PRN Reason: sleep Last Admin: 04/09/24 20:19 Dose: 15 mg Documented By: LORRAINE Labs 04/10/24 05:24 04/10/24 05:24 Labs: Laboratory Results - last 24 hr 04/10/24 05:24 MCV 81.8 MCH 24.9 L MCHC 30.5 L RDW 16.3 H Plt Count 588 H MPV 8.7 L Absolute Nucleated RBC 0.000 Nucleated RBC % (auto) 0.0 Anion Gap 12 Estim Creat Clear Calc 52.1 Estimated GFR > 60 Random Glucose 88 Calcium 9.5 D Microbiology Microbiology Results: Microbiology 04/06/24 Unknown Urine Culture - Preliminary Urine Catheterized - Lou Catheter Klebsiella pneumoniae Enterococcus faecalis 04/06/24 01:44 Gram Stain - Final Coccyx Routine Culture - Final Acinetobacter baumannii Proteus mirabilis Assessment and Plan (1) Acute UTI: Status: Acute (2) Decubitus ulcer: Status: Acute (3) Stage II pressure ulcer of sacral region: Status: Acute Plan Patient is a 73-year-old female with a past medical history significant for chronic microcytic anemia, Raynaud's GERD, mood disorder, stress induced cardiomyopathy, recurrent C diff decubitus ulcers who presented to the ED last night due to back pain and lower abdominal pain. Testing in ED conclusive for sepsis and UTI, urine culture pending. Sepsis secondary to UTI sepsis resolved culture growing multiple bacteria, pending final sensitivity continue Vanco\ Ceftriaxone Hx of MDR , ID eval , Vancomycin and Ceftriaxone 4-6 weeks Get a PICC line today If diarrhea start Vancomycin PO qid Might Needs plastic surgery eval to assess ability to heal or need potential skin graft. as OP. Stage IV infected decubitus ulcers A/P CT with sacral decubitus ulcer, new compared from 08/20/2023. on vancomycin and ceftriaxone as above continue tramadol as needed for pain Wound care following Surgery rec wound care , no intervention planned Constipation CT normal aside from chronic constipation improved with Senna\Colace with MEtamucil Chronic microcytic anemia stable, monitor Moderate malnutrition Add Ensure to diet GERD continue famotidine and pantoprazole HTN hold metoprolol due to low BP Mood disorder continue mirtazapine, quetiapine and temazepam DNR/DNI DVT PPx: lovenox Pt with sepsis, UTI and stage 4 decubitus ulcers, requiring admission for overnight for IV antibiotics pending PICC line placement and arrangement of outpatient care. Quality Stroke Does the patient have a stroke diagnosis?: No VTE Prior VTE?: No VTE Risk Level:: Medical - moderate - high VTE Device Contraindication: Treatment Not Tolerated VTE Drug Contraindication: N/A - Med Ordered
--- NOTE | 2024-04-10 10:11 | HO.PICC ---
PICC Line Insertion NPICC Diagnosis: UTI sepsis Indication: halfway ABT Pertinent Labs: reviewed Technique: Following informed consent including risks, benefits and alternatives and using sterile technique including cap and mask, sterile gown, glove and drape, the right arm was prepped and draped in the usual sterile fashion of full barrier technique with CHG. Following completion of [place] Protocol the skin and soft tissues were anesthetized with 1% Lidocaine plain. Using ultrasound guidance, right basilic vein access was obtained. Over an 0.018 wire through peel-away sheath, a 4FR single lumen PASV PICC line was positioned. Catheter length is 33cm internal length, 0cm external length, for a total trimmed length of 33cm. The procedure was performed in [facility]. Tip verification was performed by Lee Lugo with Sherlock 3CG. Tip located in SVC. Ultrasound was used to document vein patency and for needle entry. A formal ultrasound picture and cardiac rhythm strip was recorded. Vascular Ophthalmic Surgeon has released the line for use and it is currently dressed with a StatLock, Tegaderm, and CHG disc. Verification has been performed for blood return and line patency. Arm Circumference: 21cm Equipment: [email or web address] POWER PICC with sherlock 3cg tip Catheter Type: 4FR single lumen PASV PICC Lot #: [id number]
[2024-04-10] MEDS: 0.9 % Sodium Chloride Flush 3 ML SYRINGE IVFLUSH ×2 (10:32→14:33)
--- NOTE | 2024-04-10 10:57 | MHC.CLN ---
NUTRITION DIET=REGULAR. UPGRADED CONSISTENCY FROM CHOPPED TO REGULAR PER PATIENT REQUEST. RECEIVING ENSURE TID. PROVIDES 1050 KCALS, 60 G PROTEIN. SUPPLEMENT TO PROMOTE WOUND HEALING. PATIENT WITH STAGE IV WOUND TO COCCYX AND UNSTAGEABLE AREA TO RIGHT SACRUM. USUAL MEAL PATTERN IS THAT ACCEPTS BREAKFAST AND LUNCH AND DOES NOT EAT DINNER. INTAKE AT B AND L USUALLY 50-100%. CONTINUE CURRENT DIET AND SUPPLEMENT. MONITOR PO INTAKE AND SKIN INTEGRITY.
--- NOTE | 2024-04-10 11:17 | MHC.CM.PN ---
Patient will require IV ABX @ DC. [facility] has been referred. The patients PLANT TECHNICIAN will come to [facility] tomorrow for IV infusion management education. CM will follow for discharge.
[2024-04-10 12:32] LABS: Vancomycin Random 18.8 mcg/mL (15-20)
--- NOTE | 2024-04-10 12:39 | HE.PHANOTE ---
RE: awa Ruth level creeping up, decreased dose to 750mg Q24H with predicted trough of 13.3 mg/L, AUC of 445mg/L. Next level to be drawn after two doses @1100 on 04/12
[2024-04-10] MEDS: vancomycin HCL 750 MG in 0.9 % Sodium Chloride 250 ML 265 MG IV (13:24)
[2024-04-10] MEDS: Lidocaine 4 % Patch ADH..PATCH 1 PATCH TRANSDERMA (14:32)
[2024-04-10] MEDS: 0.9 % Sodium Chloride Flush 10 ML SYRINGE 5 ML IVFLUSH ×2 (14:34→19:40)
[2024-04-10 15:54] VITALS: BP 120/50; PULSE 96; RESP 18; TEMP 37.2; O2SAT 96
[2024-04-10 19:26] VITALS: BP 110/66; PULSE 81; RESP 18; TEMP 36.6; O2SAT 97
[2024-04-10] MEDS: Temazepam 15 MG CAPSULE PO (19:39)
[2024-04-10] MEDS: Atorvastatin Calcium 40 MG TABLET PO (19:40)
[2024-04-11] MEDS: oxyCODONE HCl Immed Release 5 MG TABLET PO ×6 (01:04→22:17)
[2024-04-11] MEDS: Acetaminophen 325 MG TABLET 650 MG PO ×2 (01:05→15:54)
[2024-04-11 03:30] VITALS: BP 117/59; PULSE 76; RESP 18; TEMP 36.9; O2SAT 96
[2024-04-11] MEDS: Omeprazole 20 MG CAPSULE.DR PO (05:00)
[2024-04-11] MEDS: cefTRIAXone sodium 1 GM VIAL IVPUSH (05:01)
[2024-04-11 06:03] LABS: Hematocrit 25.8 % (37.0-47.0); Mean Corpuscular Hemoglobin 25.3 pg (27.0-33.0); Mean Corpuscular Volume 81.6 fL (80.0-98.0); Mean Platelet Volume 8.6 fL (9.4-12.3); Platelet Count 595 X10*3/uL (160-400); Red Blood Count 3.16 X10*6/uL (4.20-5.50); Red Cell Distribution Width 16.3 % (11.0-16.0); White Blood Count 11.2 X10*3/uL (4.8-10.8)
[2024-04-11 06:15] LABS: Anion Gap 12 (12-20); Blood Urea Nitrogen 13 mg/dL (9-16); Calcium 9.9 mg/dL (8.4-10.2); Carbon Dioxide 22 mmol/L (22-29); Chloride 109 mmol/L (96-108); Creatinine Clr Calc Pharmacy 54.9; Estimated Glomerular Filt Rate > 60; Glucose Random 92 mg/dL (60-115); Potassium 3.5 mmol/L (3.3-5.1); Sodium 139 mmol/L (135-145)
[2024-04-11 07:29] VITALS: BP 120/66; PULSE 82; RESP 16; TEMP 36.4; O2SAT 96
[2024-04-11] MEDS: Famotidine 20 MG TABLET PO ×2 (08:23→11:13)
[2024-04-11] MEDS: LORazepam 1 MG TABLET PO ×2 (08:23→20:45)
[2024-04-11] MEDS: QUEtiapine Fumarate 50 MG TABLET PO ×2 (08:23→20:40)
[2024-04-11] MEDS: Mirtazapine 7.5 MG TABLET PO (08:23)
[2024-04-11] MEDS: Sennosides/Docusate Sodium TABLET 0.5 TAB PO (08:23)
[2024-04-11] MEDS: 0.9 % Sodium Chloride Flush 3 ML SYRINGE IVFLUSH ×2 (08:24→15:57)
[2024-04-11] MEDS: 0.9 % Sodium Chloride Flush 10 ML SYRINGE 5 ML IVFLUSH ×3 (08:29→22:11)
[2024-04-11] MEDS: Lidocaine 4 % Patch ADH..PATCH 1 PATCH TRANSDERMA (08:31)
--- NOTE | 2024-04-11 10:46 | HO.PM.IMPN ---
Subjective Subjective Date of Service: 04/11/24 Interval History: seen and evaluated still reporting back pain and wounds in her back denies any fever or chills no other events Review of Systems Review of Systems: Yes all other systems are reviewed and are negative Physical Exam Vital Signs: Vital Signs: Last Vital Signs Temp 97.5 F 04/11/24 07:29 Pulse 82 04/11/24 07:29 Resp 16 04/11/24 07:29 BP 120/66 04/11/24 07:29 Pulse Ox 96 04/11/24 07:29 O2 Del Method Room Air 04/11/24 07:29 BMI result Body Mass Index 17.6 Const: Other: Constitutional : Awake, interactive, underwieght, not in distress Neck : Normal inspection, Supple Cardiovascular : RRR, no JVP, no lower extremity edema Respiratory : good bilateral air entry, no crackles, wheezes or rhonchi Gastrointestinal: soft, lax, Normal bowel sounds, Non tender Skin : Warm, Dry, two open sacral wounds of 3,4 with less erythema and draiange , covered with dressing Objective Data Active Medications Acetaminophen (Acetaminophen 325 Mg Tablet) 650 mg PO QSHIFT [facility] Last Admin: 04/11/24 01:05 Dose: 650 mg Documented By: RONALDO Atorvastatin Calcium (Atorvastatin Calcium 40 Mg Tablet) 40 mg PO BEDTIME [facility] Last Admin: 04/10/24 19:40 Dose: 40 mg Documented By: LORRAINE Calcium Carbonate (Calcium Carbonate 750 Mg Tab.Chew) 750 mg PO Q4H PRN PRN Reason: Heartburn Ceftriaxone Sodium (Ceftriaxone Sodium 1 Gm Vial) 1 gm IVPUSH Q24H [facility] Last Admin: 04/11/24 05:01 Dose: 1 gm Documented By: LORRAINE Enoxaparin Sodium (Enoxaparin Sodium 40 Mg/0.4 Ml Syringe) 40 mg SUBCUT Q24H [facility] Last Admin: 04/09/24 11:39 Dose: Not Given Documented By: PUMA Non-Admin Reason: Patient Refused Famotidine (Famotidine 20 Mg Tablet) 20 mg PO BID@0900,1200 [facility] Last Admin: 04/11/24 08:23 Dose: 20 mg Documented By: GITA Vancomycin HCl 750 mg/ Sodium (Chloride) 265 mls @ 265 mls/hr IV Q24H [facility] Last Infusion: 04/10/24 14:36 Dose: Infused Documented By: GITA Lidocaine (Lidocaine 4 % Patch Adh..Patch) 1 patch TRANSDERMA DAILY [facility]; Protocol Last Admin: 04/11/24 08:31 Dose: 1 patch Documented By: GITA Lorazepam (Lorazepam 1 Mg Tablet) 1 mg PO BID PRN PRN Reason: anxiety Last Admin: 04/11/24 08:23 Dose: 1 mg Documented By: GITA Magnesium Hydroxide (Milk Of Magnesia 30 Ml Oral.Susp) 30 ml PO DAILY PRN PRN Reason: Constipation Melatonin (Melatonin 3 Mg Tablet) 6 mg PO BEDTIME PRN PRN Reason: Insomnia Mirtazapine (Mirtazapine 7.5 Mg Tablet) 7.5 mg PO DAILY [facility] Last Admin: 04/11/24 08:23 Dose: 7.5 mg Documented By: GITA Omeprazole (Omeprazole 20 Mg Capsule.Dr) 20 mg PO DAILY@0630 [facility] Last Admin: 04/11/24 05:00 Dose: 20 mg Documented By: LORRAINE Ondansetron HCl (Ondansetron Hcl 4 Mg/2 Ml Vial) 4 mg IVPUSH Q8H PRN PRN Reason: Nausea and Vomiting Oxycodone HCl (Oxycodone Hcl Immed Release 5 Mg Tablet) 5 mg PO Q4H PRN PRN Reason: Pain, Severe (Pain Scale 7-10) Last Admin: 04/11/24 09:30 Dose: 5 mg Documented By: GITA Pharmacy Consult (Consult Rx Vancomycin Dosing) 1 each MISCELLANE DAILY PRN PRN Reason: Consult order Psyllium Hydrophilic Mucilloid (Psyllium Seed 3.7 Gm Packet) 3.7 gm PO BEDTIME [facility] Last Admin: 04/10/24 19:45 Dose: Not Given Documented By: LORRAINE Non-Admin Reason: Patient Refused Quetiapine Fumarate (Quetiapine Fumarate 50 Mg Tablet) 50 mg PO BID [facility] Last Admin: 04/11/24 08:23 Dose: 50 mg Documented By: GITA Senna/Docusate Sodium (Sennosides/Docusate Sodium Tablet) 0.5 tab PO DAILY [facility] Last Admin: 04/11/24 08:23 Dose: 0.5 tab Documented By: GITA Sodium Chloride (0.9 % Sodium Chloride Flush 3 Ml Syringe) 3 ml IVFLUSH QSHIFT [facility] Last Admin: 04/11/24 08:24 Dose: 3 ml Documented By: GITA Sodium Chloride (0.9 % Sodium Chloride Flush 10 Ml Syringe) 5 ml IVFLUSH TID [facility] Last Admin: 04/11/24 08:29 Dose: 5 ml Documented By: GITA Temazepam (Temazepam 15 Mg Capsule) 15 mg PO BEDTIME PRN PRN Reason: sleep Last Admin: 04/10/24 19:39 Dose: 15 mg Documented By: LORRAINE Labs 04/11/24 05:23 04/11/24 05:23 Labs: Laboratory Results - last 24 hr 04/10/24 04/11/24 11:05 05:23 MCV 81.6 MCH 25.3 L MCHC 31.0 RDW 16.3 H Plt Count 595 H MPV 8.6 L Absolute Nucleated RBC 0.000 Nucleated RBC % (auto) 0.0 Anion Gap 12 Estim Creat Clear Calc 54.9 Estimated GFR > 60 Random Glucose 92 Calcium 9.9 Random Vancomycin 18.8 Microbiology Microbiology Results: Microbiology 04/06/24 00:41 Blood Culture - Final Blood - Venous No growth after 5 days. 04/06/24 00:41 Blood Culture - Final Blood - Venous No growth after 5 days. 04/06/24 Unknown Urine Culture - Final Urine Catheterized - Lou Catheter Klebsiella pneumoniae Enterococcus faecalis Assessment and Plan (1) Acute UTI: Status: Acute (2) Decubitus ulcer: Status: Acute (3) Soft tissue infection: Status: Acute (4) Stage 4 pressure ulcer: Status: Acute Plan Patient is a 73-year-old female with a past medical history significant for chronic microcytic anemia, Raynaud's GERD, mood disorder, stress induced cardiomyopathy, recurrent C diff decubitus ulcers who presented to the ED last night due to back pain and lower abdominal pain. Testing in ED conclusive for sepsis and UTI, urine culture pending. Sepsis secondary to Stage IV infected decubitus ulcers and possible UTI sepsis resolved culture growing multiple bacteria, Dr Edmond thinks all colonized not real infection A/P CT with sacral decubitus ulcer, new compared from 08/20/2023. Changed to IV Ceftriaxone and PO Flagyl Hx of MDR , ID eval , IV Ceftriaxone for 2 weeks and PO Flagyl for 2 weeks (plan changed after Cx finalized) Had PICC line placed If diarrhea start Vancomycin PO qid Dr Lin thinks she does not need plastic surgery eval for need potential skin graft at this point. No intervention needed at this point. continue tramadol as needed for pain Wound care following to do PT eval Constipation CT normal aside from chronic constipation improved with Senna\Colace with MEtamucil Chronic microcytic anemia stable, monitor Moderate malnutrition Add Ensure to diet GERD continue famotidine and pantoprazole HTN hold metoprolol due to low BP Mood disorder continue mirtazapine, quetiapine and temazepam DNR/DNI DVT PPx: lovenox Pt with sepsis, UTI and stage 4 decubitus ulcers, requiring admission for overnight for IV antibiotics pending PICC line placement and arrangement of outpatient care. Quality Stroke Does the patient have a stroke diagnosis?: No VTE Prior VTE?: No VTE Risk Level:: Medical - moderate - high VTE Device Contraindication: Treatment Not Tolerated VTE Drug Contraindication: N/A - Med Ordered
[2024-04-11] MEDS: metroNIDAZOLE 500 MG TABLET PO ×2 (11:13→18:06)
--- NOTE | 2024-04-11 11:40 | MHC.CM.PN ---
Patient will discharge to home tomorrow with resumption of [facility] services. [facility] will start services for IV ABX management. [facility] ella performed the IV management education today. The CG did well with the teach. DP home resumption [facility]. Start IV ABX with [facility] and [facility]. CG will provide transportation home. CM will follow for discharge.
[2024-04-11 16:00] VITALS: BP 105/57; PULSE 85; RESP 16; TEMP 37; O2SAT 98
[2024-04-11 19:31] VITALS: BP 123/63; PULSE 88; RESP 18; TEMP 37; O2SAT 97
[2024-04-11] MEDS: Atorvastatin Calcium 40 MG TABLET PO (20:40)
[2024-04-11] MEDS: Temazepam 15 MG CAPSULE PO (20:45)
[2024-04-12] MEDS: metroNIDAZOLE 500 MG TABLET PO ×2 (02:49→11:17)
[2024-04-12] MEDS: oxyCODONE HCl Immed Release 5 MG TABLET PO ×3 (02:50→13:01)
[2024-04-12 04:00] VITALS: BP 112/55; PULSE 87; RESP 18; TEMP 36.6; O2SAT 97
[2024-04-12] MEDS: Omeprazole 20 MG CAPSULE.DR PO (06:02)
[2024-04-12 07:32] VITALS: BP 103/55; PULSE 88; RESP 16; TEMP 36.4; O2SAT 97
[2024-04-12] MEDS: Mirtazapine 7.5 MG TABLET PO (08:17)
[2024-04-12] MEDS: Sennosides/Docusate Sodium TABLET 0.5 TAB PO (08:18)
[2024-04-12] MEDS: Acetaminophen 325 MG TABLET 650 MG PO (08:18)
[2024-04-12] MEDS: Famotidine 20 MG TABLET PO ×2 (08:18→11:17)
[2024-04-12] MEDS: QUEtiapine Fumarate 50 MG TABLET PO (08:18)
[2024-04-12] MEDS: cefTRIAXone sodium 2 GM VIAL IVPUSH (08:19)
[2024-04-12] MEDS: 0.9 % Sodium Chloride Flush 3 ML SYRINGE IVFLUSH (08:20)
[2024-04-12] MEDS: 0.9 % Sodium Chloride Flush 10 ML SYRINGE 5 ML IVFLUSH (08:21)
--- NOTE | 2024-04-12 09:50 | MHC.CLN ---
F/U DIET=REGULAR. RECEIVING ENSURE TID. PROVIDES 1050 KCALS, 60 G PROTEIN. SUPPLEMENT TO PROMOTE WOUND HEALING. PATIENT WITH STAGE IV WOUND TO COCCYX AND UNSTAGEABLE AREA TO RIGHT SACRUM. INTAKE USUALLY 50-100% AT B AND L. CONTINUE CURRENT DIET AND SUPPLEMENT. MONITOR PO INTAKE AND SKIN INTEGRITY.
--- NOTE | 2024-04-12 11:05 | MHC.CM.PN ---
pt dcd home with resumtpion of [facility] and [facility] asked md to write dc of vanco and wound care orders and continuation of ceftrioxone
--- NOTE | 2024-04-12 11:10 | P.DS_ITS ---
DS: Providers Provider Date of Service: 04/12/24 Date of admission: 04/06/24 10:38 Date of discharge: 04/12/24 Primary care physician: Aniyah Mcgregor MD Consults: 04/06/24 09:52 Consult to Wound Care Routine Reason for consultation: stage 4 decubitus ulcers, seeing outpt wound care [facility] Has provider been notified: No 04/07/24 11:18 Consult to General Surgery Routine Consulting Provider: [facility] General Surgeons Reason for consultation: Stage 4 sacral wounds with foul smell 04/08/24 07:29 Consult to Infectious Diseases Routine Consulting Provider: [facility] Reason for consultation: UTI w Lou. MDR DS: Diagnosis Discharge Diagnosis (1) Stage II pressure ulcer of sacral region: Status: Acute DS: Summary Hospital Course Hospital Course: from initial hpi: 73-year-old female with a past medical history significant for chronic microcytic anemia, Raynaud's GERD, mood disorder, stress induced cardiomyopathy, recurrent C diff decubitus ulcers who presented to the ED last night due to back pain and lower abdominal pain. She has sacral decubiti ulcers for which he has been seeing Wound Care, last seen a few days ago and goes every other week. 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 She rated her pain at a 7 to 8/10 when she arrived, now currently 5/10. The back pain is still persistent however abdominal pain has subsided. She reports multiple spinal deformities which contribute to her chronic back pain. She denies any nausea vomiting or fever but has had dysuria for the past day. No urinary frequency, hematuria or urgency. hospital course: Patient was admitted for sepsis secondary to stage IV infected decubitus ulcer and possible urinary tract infection. Was treated with broad-spectrum antibiotics and then seen by infectious disease who recommended IV ceftriaxone for 4-6 weeks, will be completed 05/16/2024. PICC line placed. Was seen by surgery who felt that patient did not require any plastic surgery at this point. Was seen by wound care, Sacrum and coccyx - Cleanse and irrigate with NS, pat dry. Apply skin prep to periwound. Lightly pack wound bed with Durafiber AG, cover with dry gauze, ABD pad. For chronic inflammatory anemia remained stable. For moderate malnutrition was continued on ensure. For GERD was continued on PPI. For mood disorder was continued on mirtazapine, quetiapine, temazepam. For history of stress-induced cardiomyopathy will continue with metoprolol. Patient is stable will be discharged home with services. Time Attestation Discharge Coordination Time (in mins): 33 Quality: Safe Use of Opioids Does Pt have an Active Cancer Diagnosis on the Problem List?: No Quality: Stroke Does the patient have a stroke diagnosis?: No Physical Exam Vital Signs: Vital Signs: Last Vital Signs Temp 97.5 F 04/12/24 07:32 Pulse 88 04/12/24 07:32 Resp 16 04/12/24 07:32 BP 103/55 L 04/12/24 07:32 Pulse Ox 97 04/12/24 07:32 O2 Del Method Room Air 04/12/24 07:32 BMI result Body Mass Index 17.6 Const: Other: Constitutional : Awake, interactive, underwieght, not in distress Neck : Normal inspection, Supple Cardiovascular : RRR, no JVP, no lower extremity edema Respiratory : good bilateral air entry, no crackles, wheezes or rhonchi Gastrointestinal: soft, lax, Normal bowel sounds, Non tender Skin : Warm, Dry, two open sacral wounds of 3,4 with less erythema and draiange , covered with dressing DS: Data Data Completed and Pending Completed studies during hospitalization [Text1]: Procedures Reposition Right Upper Femur with Intramedullary Internal Fixation Device, Percutaneous Approach (10/11/23) Transfusion of Nonautologous Red Blood Cells into Peripheral Vein, Percutaneous Approach (10/11/23) Discharge Plan Discharge Anticipated Discharge Date/Time: 04/12/24 11:04 Patient Disposition: Home Health Service Discharge Diagnosis: OM, sacral ulcer Referrals: [facility] [Other] - 1 Week [facility] [Other] - 1 Week Bridget Wren PA-C [Physician Concrete Vault Maker] - 1 Week Cheryl Edmond MD [Physician] - 1 Week Aniyah Smith MD [Primary Care Provider] - 1 Week Discharge Medications: New ceftriaxone 2 gram Recon Soln 2 g IVPUSH Q24H Qty: 0 0RF vancomycin 125 mg capsule 125 mg PO .MWF Qty: 30 0RF Continued (DME) foot inserts See Rx Instructions .Route .MEDSUPPLY Qty: 1 0RF Rx Instructions: As directed lorazepam 1 mg tablet 1 mg PO BID PRN (Reason: anxiety) 30 Days Qty: 60 5RF (DME) bed rail See Rx Instructions .Route .MEDSUPPLY Qty: 1 0RF Rx Instructions: As directed atorvastatin 40 mg tablet 40 mg PO BEDTIME 90 Days Qty: 90 1RF pantoprazole 40 mg tablet,delayed release (DR/EC) 40 mg PO DAILY@0630 90 Days Qty: 90 1RF mirtazapine 7.5 mg tablet 7.5 mg PO DAILY 30 Days Qty: 30 5RF (DME) adult diapers briefs Small See Rx Instructions .Route .MEDSUPPLY Qty: 240 11RF Rx Instructions: As directed quetiapine 50 mg tablet 50 mg PO BID 30 Days Qty: 60 5RF tramadol 50 mg tablet 50 mg PO Q8H PRN (Reason: Pain) 30 Days Qty: 90 0RF famotidine 20 mg tablet 20 mg PO BID@0900,1200 90 Days Qty: 180 2RF (DME) hospital bed Kit See Rx Instructions .Route Qty: 1 0RF Rx Instructions: As directed metoprolol succinate 25 mg tablet extended release 24 hr 12.5 mg PO DAILY Qty: 30 5RF temazepam 15 mg capsule 15 mg PO BEDTIME PRN (Reason: sleep) 30 Days Qty: 30 5RF Discharge Orders: Discharge Order (Routine); Ordered 04/12/24 Ordered By: Amos Spicer Diet: Advance to usual diet Activity on Discharge: As tolerated Stand Alone Forms: Patient Portal Discharge page Print Language: [place] Zealander Care Plan Goals: recovery Health Concerns: OM Plan of Treatment: rocephin until may 16, 2024 cotinue prophylactic po vanco due to history of cdif Assessment: see dif
--- NOTE | 2024-04-12 11:14 | W.MHC.F2F ---
Service Date Service Date: 04/12/24 Encounter Date of encounter: 04/12/24 Reasons for Services Signs and symptoms assessed: difficulty ambulating Reason for usp: wound care (Sacrum and coccyx - Cleanse and irrigate with NS, pat dry. Apply skin prep to periwound. Lightly pack wound bed with Durafiber AG, cover with dry gauze, ABD pad), medication management, medication treatment and teach disease management Homebound: Leaving the home is medically contraindicated at this time without the asist of a device and/or another person due th the listed conditions above and below. Reason homebound: unsteady gait / fall risk Certification: Based on the above findings, I certify that this patient is confined to the home and needs intermittent usp care, physical therapy and/or speech therapy, or continues to need occupational therapy. The patient is under my care, and I have initiated the establishment of the plan of care. The patient will be followed by a physician who will periodically review the plan of care. Time Spent With Patient Time: Total time managing care of this patient today ____ minutes.
== END 2024-04-12 15:37 | disposition home health service (06) | DRG 871 ==
LOC: HO.ED 04-06 02:04 → HO.EDOVER 04-06 10:41 → HO.S3 04-06 12:30
PROVIDERS: Internal Medicine; Student in an Organized Health Care Education/Training Program; Admitting Provider Physician Assistant; Emergency Provider Student in an Organized Health Care Education/Training Program; PCP Internal Medicine; Visit Provider Internal Medicine
DX: A41.9 Sepsis, unspecified organism (principal); L89.154 Pressure ulcer of sacral region, stage 4; E44.0 Moderate protein-calorie malnutrition; Z68.1 Body mass index [BMI] 19.9 or less, adult; R64 Cachexia; K21.9 Gastro-esophageal reflux disease without esophagitis; D50.9 Iron deficiency anemia, unspecified; Z66 Do not resuscitate; K59.01 Slow transit constipation; I10 Essential (primary) hypertension; D64.9 Anemia, unspecified; Z20.822 Contact with and (suspected) exposure to COVID-19; Z87.891 Personal history of nicotine dependence; Z79.899 Other long term (current) drug therapy
CPT/HCPCS: 0241U; 36415; 36573; 74177; 80048; 80053; 80076; 80202; 81001; 82248; 82565; 83605; 83690; 85025; 85027; 87040; 87070; 87077; 87086; 87088; 87186; 87205; 93005; 97162; 99285; C1751; J0696; J2270; J3370; Q9967

== ENCOUNTER → 2024-04-06 00:06 | Outpatient (BNV) | payer MEDICARE, MEDICAID, SELFPAY | PROVIDERS: Admitting Provider Physician Assistant; Emergency Provider Student in an Organized Health Care Education/Training Program; PCP Internal Medicine; Visit Provider Internal Medicine | DX: I10 Essential (primary) hypertension (principal) | CPT/HCPCS: 93010 ==

== ENCOUNTER → 2024-04-06 10:38 | Outpatient (BNV) | payer MEDICARE, MEDICAID, SELFPAY | PROVIDERS: Admitting Provider Physician Assistant; Emergency Provider Student in an Organized Health Care Education/Training Program; PCP Internal Medicine; Visit Provider Physician Assistant | DX: N39.0 Urinary tract infection, site not specified (principal); L89.154 Pressure ulcer of sacral region, stage 4 | CPT/HCPCS: 99223; 99232; 99239; G0180 ==

== ENCOUNTER → 2024-04-06 10:38 | Outpatient (BNV) | payer MEDICARE, MEDICAID, SELFPAY | PROVIDERS: Admitting Provider Physician Assistant; Emergency Provider Student in an Organized Health Care Education/Training Program; PCP Internal Medicine; Visit Provider Surgery | DX: L89.152 Pressure ulcer of sacral region, stage 2 (principal) | CPT/HCPCS: 99222; 99232 ==

== ENCOUNTER → 2024-04-06 10:38 | Outpatient (BNV) | payer MEDICARE, MEDICAID, SELFPAY | PROVIDERS: Admitting Provider Physician Assistant; Emergency Provider Student in an Organized Health Care Education/Training Program; PCP Internal Medicine; Visit Provider Internal Medicine | DX: L89.154 Pressure ulcer of sacral region, stage 4 (principal); M25.551 Pain in right hip | CPT/HCPCS: 99222 ==

== ENCOUNTER 2024-04-19 10:09 | Outpatient (REF) | payer MEDICARE, MEDICAID, SELFPAY ==
[2024-04-19 10:14] LABS: MANUAL DIFF FLAG NO
[2024-04-19 10:41] LABS: Basophils Absolute Auto 0.1 X10*3/uL (0.0-0.2); Basophils Percent Auto 0.8 % (0-2); Eosinophils Absolute Auto 0.3 X10*3/uL (0.0-0.4); Eosinophils Percent Auto 3.5 % (0-4); Hematocrit 30.4 % (37.0-47.0); Hemoglobin 9.1 g/dl (12.0-16.0); Imm Gran Abs Auto 0.03 X10*3/uL (0.00-0.03); Imm Gran Pct Auto 0.3 % (0.0-0.4); Lymphocytes Absolute Auto 2.6 X10*3/uL (1.2-4.9); Lymphocytes Percent Auto 29.8 % (20-40); Mean Corpuscular HGB Conc 29.9 g/dl (31.0-35.0); Mean Corpuscular Hemoglobin 25.3 pg (27.0-33.0); Mean Corpuscular Volume 84.4 fL (80.0-98.0); Monocytes Absolute Auto 0.5 X10*3/uL (0.1-1.2); Monocytes Percent Auto 5.6 % (2-11); Neutrophils Absolute Auto 5.2 x10*3/uL (2.0-8.3); Platelet Count 600 X10*3/uL (160-400); Red Cell Distribution Width 18.7 % (11.0-16.0); White Blood Count 8.6 X10*3/uL (4.8-10.8)
[2024-04-19 11:30] LABS: Anion Gap 13 (12-20); Blood Urea Nitrogen 14 mg/dL (9-16); Calcium 9.3 mg/dL (8.4-10.2); Carbon Dioxide 27 mmol/L (22-29); Chloride 106 mmol/L (96-108); Estimated Glomerular Filt Rate > 60; Glucose Random 82 mg/dL (60-115); Potassium 4.5 mmol/L (3.3-5.1); Sodium 141 mmol/L (135-145)
== END 2024-04-19 10:10 | disposition home or self-care (01) ==
LOC: HO.LNP 10:09
PROVIDERS: Visit Provider Internal Medicine
DX: Z13.89 Encounter for screening for other disorder (principal); B95.2 Enterococcus as the cause of diseases classified elsewhere
CPT/HCPCS: 80048; 85025

== ENCOUNTER 2024-04-26 11:28 | Outpatient (AMB) | payer MEDICARE, MEDICAID, SELFPAY ==
--- NOTE | 2024-04-26 11:31 | MHC.PC.OV ---
Vital Signs 04/26/24 11:34 Height 5 ft Weight 90 lb BMI 17.6 BMI Reason not done Patient refused/unable BP 120/60 Blood Pressure Location Lt brachial Position Sitting Intake Visit Reasons: [facility] [place] 04/12 Intake Note: Patient is here for hospital discharge follow up and TCM. Patient was discharged from [facility] [place] on 04/12/24. Pt decline flu shot today. 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 Ward Nurse: Present Accompanied by: Daughter Allergies No Known Allergies Allergy (Verified 04/26/24 11:50) Medication List - Last Reconciled 04/26/24 by Aniyah Mcgregor MD [adult diapers briefs As directed] atorvastatin 40 mg PO BEDTIME 90 days [bed rail As directed] ceftriaxone 2 grams IVPUSH Q24H famotidine 20 mg PO BID@0900,1200 90 days [foot inserts As directed] hospital bed As directed lorazepam 1 mg PO BID PRN 30 days metoprolol succinate ER 12.5 mg (1/2 x 25 mg) PO DAILY mirtazapine 7.5 mg PO DAILY 30 days pantoprazole 40 mg PO DAILY@0630 90 days quetiapine 50 mg PO BID 30 days temazepam 15 mg PO BEDTIME PRN 30 days tramadol 50 mg PO Q8H PRN 30 days vancomycin 125 mg PO .MWF Tobacco use date assessed: 04/26/24 Fall risk assessment: No Falls in past year Last assessed Fall Risk: 04/26/24 Dental Screening Dental Screen Date: 01/04/24 [facility] TCM TCM Information Date of Discharge 04/12/24 Discharged From [facility] Interactive Contact Date (Reference documentation from this date) 04/13/24 HPI Comments History of Present Illness Details The patient is a 73-year-old female presenting with ongoing concerns related to an unresolved urinary tract infection (UTI) and sacral ulcer. She was hospitalized approximately two weeks ago on April 05 due to a severe UTI, which also involved an ulcer that became infected. A peripherally inserted central catheter (PICC) was placed during hospitalization, and she was discharged on April 12. Upon discharge, she completed a course of ceftriaxone, but continues with vancomycin on a regimen of three times a week (Wednesday, Wednesday, and Wednesday). Blood work taken post-discharge indicated favorable results. The patient also has a complex history involving chronic pain management due to history of hip fracture in which she has been bed ridden since. She is currently using tramadol to manage pain and has recently started physical therapy. The sacral ulcer, managed with daily care, shows ongoing improvement. Wound care includes the application of a silver-based dressing, though traditional wet-to-dry methods have been avoided. There is 2 ulcers which has markedly improved. There is ongoing management for her anxiety and insomnia with lorazepam, temazepam, and mirtazapine, the effectiveness of which has been acknowledged in stabilizing her mental health condition. She also has proteinuria and will be referred to nephrology. [facility] Medical History (Updated 04/26/24 @ 12:14 by Aniyah Mcgregor MD) Recurrent Clostridioides difficile diarrhea External hemorrhoids Epidermal inclusion cyst White coat syndrome with high blood pressure but without hypertension Dry eyes Hyponatremia Hypercalcemia Diarrhea Renal calculi Constipation by delayed colonic transit GERD (gastroesophageal reflux disease) UTI (urinary tract infection) Villous adenoma of colon Insomnia Raynauds disease Anxiety Surgical History History of bronchoscopy History of tonsillectomy Family History Father Medical history unknown Mother Dementia Alzheimers disease Mental health disorder Brother Leukemia Sister Medical history unknown Social History Household Members: None Household Members Other:: shelter Housing: Apartment Housing Other:: Leah Elkins prior to admission. 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 1. Little interest or pleasure in doing things: not at all 2. Feeling down, depressed, or hopeless: not at all 3. Trouble falling or staying asleep, or sleeping too much: not at all 4. Feeling tired or having little energy: not at all 5. Poor appetite or overeating: not at all 6. Feeling bad about yourself - or that you are a failure or have let yourself or your family down: not at all 7. Trouble concentrating on things, such as reading the newspaper or watching television: not at all 8. Moving or speaking so slowly that other people could have noticed. Or the opposite - being so fidgety or restless that you have been moving around a lot more than usual: not at all 9. Thoughts that you would be better off or of hurting yourself in some way: not at all Total score: 0 Depression Screening Interpretation: Negative Depression Screening Done: Yes 40987 - PHQ-9 Billing: Yes Source: Developed by Drs. Julian Mas, Mook Kidd and colleagues, with an educational bernie from [employer]. Thrive Questionnaire Date Thrive assessed: 04/07/24 Are you currently unemployed and looking for a job?: No AUDIT C Alcohol Use Questionnaire (AUDIT-C) 1. How often do you have a drink containing alcohol?: Never Total Score: 0 Score Reviewed/Action Taken: No RACHEL-7 AMB Questionnaire RACHEL-7 Date RACHEL - 7 assessed: 04/26/24 Feeling nervous, anxious, or on edge: 0 = Not at all Not being able to stop or control worryin = Not at all Worrying too much about different things: 0 = Not at all Trouble relaxin = Not at all Being so restless that it is hard to sit still: 0 = Not at all Becoming easily annoyed or irritable: 0 = Not at all Feeling afraid as if something awful might happen: 0 = Not at all Total RACHEL-7 score (0-4 normal; 5-9 mild; 10-14 moderate; 15-21 severe): 0 Source: Developed by Drs. Julian Mas, Mook Kidd and colleagues, with an educational bernie from [employer]. RACHEL-7 Assessment Billing RACHEL-7 Assessment Tool: RACHEL-7 Assessment 32844 Review of Systems Const All systems reviewed & are unremarkable except as noted in HPI and below Card Denies chest pain at rest, Denies chest pain with activity, Denies edema, Denies irregular heart rhythm, Denies claudication, Denies dyspnea, Denies dyspnea on exertion, Denies orthopnea, Denies paroxysmal nocturnal dyspnea and Denies slow heart rate Resp Denies cough, Denies dyspnea and Denies dyspnea on exertion GI Denies abdominal pain, Denies change in bowel habits, Denies excessive flatus, Denies nausea and Denies vomiting Physical exam (Primary Care) Vital Signs: Last Vital Signs BP 120/60 04/26/24 11:34 BMI Assessment/Plan discussion: Low BMI Low, Plan discussed: lifestyle, increase calorie intake and dietary Tobacco/Smoking Status: Tobacco use Status Tobacco use date assessed 04/26/24 04/26/24 11:39 Patient Tobacco Use Status Former Tobacco user 04/26/24 11:32 Tobacco use type Cigarette 04/26/24 11:32 e-Cigarette/Vaping Use Never Used 04/26/24 11:32 PHQ-9: PHQ-9 Score PHQ-9: Total score 0 04/26/24 13:16 Depression Screening Interpretation: Negative Thrive Assessment: Date of Thrive Assessment Date Thrive assessed 04/07/24 04/26/24 11:32 Const Limitations: wheelchair Resp Effort & Inspection: normal respiratory effort Auscultation: clear to auscultation bilaterally Cardio Jugular venous distension: no JVD Rate: regular rate Rhythm: regular rhythm Heart sounds: S1 normal heart sound present and S2 normal heart sound present Skin Other: sacral ulcers x 2 Coding Level of Care Code TCM Mod MDM <= 14 Days Complex EM visit Add On G2211 Diagnoses Stage II pressure ulcer of sacral region L89.152 Insomnia G47.00 Anxiety F41.9 Moderate protein-calorie malnutrition E44.0 Bedridden Z74.01 Proteinuria R80.9 Additional Codes RACHEL-7 Assessment Billing - RACHEL-7 Assessment Tool: RACHEL-7 Assessment 50522 ([id number]) PHQ-9 - 65717 - PHQ-9 Billing: Yes ([id number]) Time Spent (min) 28 Assessment & Plan Assessment & Plan (1) Stage II pressure ulcer of sacral region: Code(s): L89.152 - Pressure ulcer of sacral region, stage 2 Category: Medical (2) Insomnia: Code(s): G47.00 - Insomnia, unspecified Category: Medical (3) Anxiety: Code(s): F41.9 - Anxiety disorder, unspecified Category: Medical (4) Moderate protein-calorie malnutrition: Code(s): E44.0 - Moderate protein-calorie malnutrition Category: Medical (5) Bedridden: Code(s): Z74.01 - Bed confinement status Category: Medical (6) Proteinuria: Code(s): R80.9 - Proteinuria, unspecified Category: Medical (7) Insomnia: Code(s): G47.00 - Insomnia, unspecified Category: Medical Plan 1. Urinary Tract Infection and Sacral Ulcer: - Maintain current wound care with silver dressing, avoiding wet-to-dry technique. - Follow up with foreign broadcast specialist to monitor wound healing progress. 2. Pain Management: - Adjust physical therapy program as tolerated to enhance mobility and decrease pain. 3. Mental Health: - Maintain current dosage of temazepam for insomnia. 4. Follow-Up Appointments: - Follow up with urology separately for comprehensive renal evaluation. Patient was informed and verbally consented to the use of an ambient scribe for clinic note documentation during this visit. I discussed the ongoing treatment for the patient's urinary tract infection and sacral ulcer, emphasizing the importance of continued vancomycin therapy and wound care. The potential benefits of consistent physical therapy were reviewed to improve mobility and manage chronic pain, with attention to making modifications based on her tolerance. We discussed the ongoing need for mental health management, reinforcing the plan to continue her current medications for anxiety, depression, and sleep issues. Orders: Orders Lipid Panel Today E78.5 - Hyperlipidemia, unspecified Comprehensive [place]. Panel Fast Today L89.152 - Pressure ulcer of sacral region, stage 2 Vitamin D 25-OH Total Today E55.9 - Vitamin D deficiency, unspecified Complete Blood Count Auto Diff Today D64.9 - Anemia, unspecified IRON PROFILE Today D64.9 - Anemia, unspecified Vitamin B12 and Folate Today E53.8 - Deficiency of other specified B group vitamins Referrals Nephrology Referral R80.9 - Proteinuria, unspecified Medications: Refilled tramadol 50 mg PO Q8H 30 days PRN 90 tabs 0RF Pain Patient Instructions: - Continue with current medication regimen as directed. - Adhere to the wound care protocol as instructed by the foreign broadcast specialist. - Attend regular physical therapy sessions and inform of any changes in pain or mobility. - Monitor for any new symptoms or concerns and report these promptly. - Ensure follow-up appointments with nephrology and urology are scheduled and attended.
[2024-04-26 11:34] VITALS: BP 120/60; BMI 17.6
== END 2024-04-26 12:07 | disposition home or self-care (01) ==
PROVIDERS: PCP Internal Medicine; Visit Provider Internal Medicine
DX: L89.152 Pressure ulcer of sacral region, stage 2 (principal); E44.0 Moderate protein-calorie malnutrition; G47.00 Insomnia, unspecified; F41.9 Anxiety disorder, unspecified; Z74.01 Bed confinement status; R80.9 Proteinuria, unspecified

== ENCOUNTER → 2024-04-26 11:28 | Outpatient (BNVA) | payer MEDICARE, MEDICAID, SELFPAY | PROVIDERS: PCP Internal Medicine; Visit Provider Internal Medicine | DX: L89.152 Pressure ulcer of sacral region, stage 2 (principal); G47.00 Insomnia, unspecified; F41.9 Anxiety disorder, unspecified; E44.0 Moderate protein-calorie malnutrition; R80.9 Proteinuria, unspecified; Z74.01 Bed confinement status | CPT/HCPCS: 96127; 99495 ==

== ENCOUNTER 2024-05-17 13:12 | Outpatient (AMB) | payer MEDICARE, MEDICAID, SELFPAY ==
--- NOTE | 2024-05-17 13:03 | MHC.OFFVIS ---
Vital Signs 05/17/24 13:10 Pulse 81 Temp 97.5 F Temp Source Oral Pulse Oximetry (%) 96 Intake Visit Reasons: reff c Vanco tab/UTI/ulcer Allergies No Known Allergies Allergy (Verified 05/17/24 13:10) HPI [place] [facility] [place]cer: Details: She has been taking Vancomycin and has no diarrhea. [facility] Medical History Recurrent Clostridioides difficile diarrhea External hemorrhoids Epidermal inclusion cyst White coat syndrome with high blood pressure but without hypertension Dry eyes Hyponatremia Hypercalcemia Diarrhea Renal calculi Constipation by delayed colonic transit GERD (gastroesophageal reflux disease) UTI (urinary tract infection) Villous adenoma of colon Insomnia Raynauds disease Anxiety Surgical History History of bronchoscopy History of tonsillectomy Family History Father Medical history unknown Mother Dementia Alzheimers disease Mental health disorder Brother Leukemia Sister Medical history unknown Social History Household Members: None Household Members Other:: nursing home Housing: Apartment Housing Other:: Leah Elkins prior to admission. 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) Alcohol intake: former Comment: pt bed/chair bound at baseline Patient Tobacco Use Status: Former Tobacco user Tobacco use type: Cigarette e-Cigarette/Vaping Use: Never Used Second Hand Smoke Exposure: No Advance Directives Date on File: 11/23/22 service: No Current occupational status: retired Cognitive needs: No Hearing needs: No Vision needs: Yes Review of Systems Const All systems reviewed & are unremarkable except as noted in HPI and below Physical Exam Vital Signs: Last Vital Signs Temp 97.5 F 05/17/24 13:10 Pulse 81 05/17/24 13:10 Pulse Ox 96 05/17/24 13:10 Const General: cooperative Orientation/consciousness: patient oriented x3 HEENT Head: Yes normal to inspection Mouth: Normal oral and palatal mucosa present Eyes General: appearance normal, both eyes and all related structures Pupils: Equal, round and reactive pupils present Resp Effort & Inspection: normal respiratory effort Cardio Rate: regular rate Rhythm: regular rhythm GI Palpation (GI): Soft to palpation and nontender General: Yes no CVA tenderness Back/Spine/Pelvis Back: no CVA tenderness Skin General skin exam: no rashes or lesions noted Neuro General: patient oriented x3 Cranial nerves: Yes CN's II-XII intact bilaterally and Yes Equal, round and reactive pupils present Extrem General: Yes normal to inspection Psych Appearance: grossly normal Assessment & Plan Assessment & Plan (1) C. difficile colitis: Comment: She has had Cdiff Code(s): A04.72 - Enterocolitis due to Clostridium difficile, not specified as recurrent Category: Medical Plan: Po Vancomycin continue refill. Coding Level of Care Code Est Pt Level 3 (45520) Diagnoses C. difficile colitis A04.72
[2024-05-17 13:10] VITALS: PULSE 81; TEMP 36.4; O2SAT 96
--- OUTSIDE RECORDS SUMMARY | 2024-05-18 02:22 | XMS_ITS | Clinical Summary ---
Author Organization Unknown Care Team Providers Care Internal Audit Manager Name Role Phone JUAN M VELASQUEZ MD, SHALONDA Unavailable Unavailable MARTI RN, KETTY Unavailable Unavailable [employer] EMPLOYEE RELATIONS CONSULTANT, LORETO Unavailable Unavail able MIKE PT, CELSO Unavailable Unavailable CHON COXN, EDER Unavailable Unavailable PRATEEK RN, ERIC Unavailable Unavailable Payers Payer Name Policy Type Policy Number Effective Date Expira tion Date MEDICARE - [facility] [place] - PDGM [id number] Problems Condition Name Condition Details Condition Category Status Onset Date Resolution Date Last Treatment Date Treating Clinician Comments PRESSURE ULCER OF [place], STAGE 2 Active 06-07 00:00: 00 MODERATE PROTEIN-AL CRISTINA MALNUTRITION Active 06-07 00:00: 00 GENERALIZED ANXIETY DISORDER Active 06-07 00:00: 00 ANEMIA, UNSPECIFIED Active 06-07 00:00: 00 GASTRO-ESOPH AGEAL REFLUX DISEASE WITHOUT ESOPHAGITIS Active 06-07 00:00: 00 SPINAL STENOSIS, SITE UNSPECIFIED Active 06-07 00:00: 00 FX UNSP PART OF NK OF R FEMR, SUBS FOR CLOS FX W ROUTN HEAL Active 06-07 00:00: 00 DEPRESSION, UNSPECIFIED Active 06-07 00:00: 00 ESSENTIAL (PRIMARY) HYPERTENSION Active 06-07 00:00: 00 Irritable bowel syndrome, unspecified Active 06-07 00:00: 00 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 06-07 00:00: 00 TAKOTSUBO SYNDROME Active 06-07 00:00: 00 DEFICIENCY OF OTHER SPECIFIED B GROUP VITAMINS Active 06-07 00:00: 00 INSOMNIA, UNSPECIFIED Active 06-07 00:00: 00 WEDGE COMPRSN FX FOURTH THOR VERT, SUBS FOR FX W ROUTN HEAL Active 06-07 00:00: 00 FX UNSP PARTS OF LUMBOSACR SPIN AND PELV, 7THD Active 06-07 00:00: 00 HYPERLIPIDEM IA, UNSPECIFIED Active 06-07 00:00: 00 OTHER CHRONIC PAIN Active 06-07 00:00: 00 PERSONAL HISTORY OF URINARY CALCULI Active 06-07 00:00: 00 PERSONAL HISTORY OF NICOTINE DEPENDENCE Active 06-07 00:00: 00 PERSONAL HISTORY OF URINARY (TRACT) INFECTIONS Active 06-07 00:00: 00 HISTORY OF FALLING Active 06-07 00:00: 00 OTHER CARE HOME (CURRENT) DRUG THERAPY Active 06-07 00:00: 00 Allergies, Adverse Reactions, Alerts Allergy Name Allergy Type Status Severity Reaction(s) Onset Date Inactive Date Treating Clinician Comments NKA Propensity to adverse reactions Active 2023-12 23:22:4 3 Medications Ordered Medication Name Filled Medication Name Start Date Stop Date Current Medication? Ordering Clinician Indication Dosage Frequency Signature (SIG) Comments Components erythromyci n 5 mg/gram (0.5 %) eye ointment 08-01 00:00: 00 07-18 23:59 :00 No [id number] Per instruc tions AT BEDTIME Per instructio ns AT BEDTIME (route: ophthalmic (eye)) Med Classific ation: Ophthalmi c Agents metoprolol succinate ER 25 mg tablet,exte nded release 24 hr 07-24 00:00: 00 07-18 23:59 :00 No [id number] 1 tablet DAILY 1 tablet DAILY (route: oral) Med Classific ation: Cardiovas cular Therapy Agents pantoprazol e 40 mg tablet,cesar yed release 07-24 00:00: 00 07-18 23:59 :00 No [id number] 1 tablet DAILY 1 tablet DAILY (route: oral) Med Classific ation: Gastroint estinal Therapy Agents quetiapine 50 mg tablet 07-24 00:00: 00 09-23 23:59 :00 No [id number] 1 tablet BEDTIME 1 tablet BEDTIME (route: oral) Med Classific ation: Central Nervous System Agents famotidine 20 mg tablet 2-15 00:00: 00 07-18 23:59 :00 No [id number] 1 tablet 2 TIMES DAILY 1 tablet 2 TIMES DAILY (route: oral) Med Classific ation: Gastroint estinal Therapy Agents lorazepam 1 mg tablet 07-11 00:00: 00 07-18 23:59 :00 No [id number] Per instruc tions TWICE A DAY NEEDED Per instructio ns TWICE A DAY NEEDED (route: oral) Med Classific ation: Central Nervous System Agents temazepam 15 mg capsule 07-11 00:00: 00 07-18 23:59 :00 No [id number] Per instruc tions EVERY DAY AT BEDTIME NEEDED Per instructio ns EVERY DAY AT BEDTIME NEEDED (route: oral) Med Classific ation: Central Nervous System Agents doxycycline hyclate 50 mg capsule -31 00:00: 00 07-17 23:59 :00 No [id number] Per instruc tions TWICE A DAY FOR 10 DAYS Per instructio ns TWICE A DAY FOR 10 DAYS (route: oral) Med Classific ation: Anti-Infe ctive Agents biotin 1 mg tablet 08-04 00:00: 00 07-18 23:59 :00 No [id number] 1 tablet EVERY AM 1 tablet EVERY AM (route: oral) Med Classific ation: Electroly te Balance-N utritiona l Products CoQ-10 100 mg capsule 08-04 00:00: 00 07-18 23:59 :00 No [id number] 1 capsule EVERY AM 1 capsule EVERY AM (route: oral) Med Classific ation: Alternati ve Therapy Vitamin C 100 mg tablet 08-04 00:00: 00 07-18 23:59 :00 No [id number] 1 tablet 2 TIMES DAILY 1 tablet 2 TIMES DAILY (route: oral) Med Classific ation: Electroly te Balance-N utritiona l Products bisacodyl 10 mg rectal suppository 2023-0 3-07 00:00: 00 07-18 23:59 :00 No [id number] constipatio n 1 supposi tory, rectal NEEDED 1 suppositor y, rectal NEEDED (route: rectal) Med Classific ation: Gastroint estinal Therapy Agents doxycycline hyclate 50 mg capsule 4-19 00:00: 00 11-05 23:59 :00 No [id number] 1 capsule 2 TIMES DAILY 1 capsule 2 TIMES DAILY (route: oral) Med Classific ation: Anti-Infe ctive Agents quetiapine 50 mg tablet -19 00:00: 00 07-18 23:59 :00 No [id number] 1 tablet 2 TIMES DAILY 1 tablet 2 TIMES DAILY (route: oral) Med Classific ation: Central Nervous System Agents Senna Lax 8.6 mg tablet 09-23 00:00: 00 07-18 23:59 :00 No [id number] 1 tablet DIRECTED 1 tablet DIRECTED (route: oral) Med Classific ation: Gastroint estinal Therapy Agents doxycycline hyclate 50 mg capsule 11-05 00:00: 00 07-18 23:59 :00 No [id number] 1 capsule 2 TIMES DAILY 1 capsule 2 TIMES DAILY (route: oral) Med Classific ation: Anti-Infe ctive Agents levofloxaci n 500 mg tablet -12 00:00: 00 11-21 23:59 :00 No [id number] 1 tablet DAILY 1 tablet DAILY (route: oral) Med Classific ation: Anti-Infe ctive Agents phenazopyri dine 100 mg tablet 6-13 00:00: 00 07-18 23:59 :00 No [id number] 1 tablet 3 TIMES DAILY 1 tablet 3 TIMES DAILY (route: oral) Med Classific ation: Genitouri nary Therapy Macrodantin 100 mg capsule 9-14 00:00: 00 02-25 23:59 :00 No [id number] 100 mg 2 TIMES DAILY 100 mg 2 TIMES DAILY (route: oral) Med Classific ation: Genitouri nary Therapy atorvastati n 40 mg tablet 1-18 00:00: 00 Yes [id number] Per instruc tions EVERYDAY AT BEDTIME Per instructio ns EVERYDAY AT BEDTIME (route: oral) Med Classific ation: Cardiovas cular Therapy Agents lorazepam 1 mg tablet 08-11 00:00: 00 Yes [id number] Per instruc tions TWICE A DAY NEEDED Per instructio ns TWICE A DAY NEEDED (route: oral) Med Classific ation: Central Nervous System Agents temazepam 15 mg capsule 08-11 00:00: 00 Yes [id number] Per instruc tions AT BEDTIME NEEDED Per instructio ns AT BEDTIME NEEDED (route: oral) Med Classific ation: Central Nervous System Agents metoprolol succinate ER 25 mg tablet,exte nded release 24 hr 08-08 00:00: 00 03-03 23:59 :00 No [id number] Per instruc tions EVERY DAY Per instructio ns EVERY DAY (route: oral) Med Classific ation: Cardiovas cular Therapy Agents pantoprazol e 40 mg tablet,cesar yed release 08-08 00:00: 00 Yes [id number] Per instruc tions EVERY DAY Per instructio ns EVERY DAY (route: oral) Med Classific ation: Gastroint estinal Therapy Agents quetiapine 50 mg tablet 08-08 00:00: 00 10-06 00:00 :00 No [id number] Per instruc tions TWICE A DAY FOR 30 DAYS Per instructio ns TWICE A DAY FOR 30 DAYS (route: oral) Med Classific ation: Central Nervous System Agents doxycycline hyclate 100 mg tablet 10-03 00:00: 00 10-08 23:59 :00 No [id number] 1 tablet 2 TIMES DAILY 1 tablet 2 TIMES DAILY (route: oral) Med Classific ation: Anti-Infe ctive Agents famotidine 20 mg tablet 10-06 00:00: 00 Yes [id number] 1 tablet 2 TIMES DAILY 1 tablet 2 TIMES DAILY (route: oral) Med Classific ation: Gastroint estinal Therapy Agents Hemorrhoida l 0.25 %-3 %-12 % cream 10-06 00:00: 00 Yes [id number] Per instruc tions DAILY Per instructio ns DAILY (route: rectal) Med Classific ation: Anorectal Preparati ons quetiapine 25 mg tablet 10-06 00:00: 00 Yes [id number] Per instruc tions 2 TIMES DAILY Per instructio ns 2 TIMES DAILY (route: oral) Med Classific ation: Central Nervous System Agents tramadol 50 mg tablet 10-06 00:00: 00 02-21 23:59 :00 No [id number] 1 tablet EVERY 6 HOURS 1 tablet EVERY 6 HOURS (route: oral) Med Classific ation: Analgesic , Anti-infl ammatory or Antipyret ic lorazepam 1 mg tablet 12-19 00:00: 00 12-27 00:00 :00 No [id number] Per instruc tions Per instructio ns (route: oral) Med Classific ation: Central Nervous System Agents chlorhexidi ne gluconate 0.12 % mouthwash 12-12 00:00: 00 12-27 00:00 :00 No [id number] Per instruc tions RINSE WITH 1/2 OZ FOR 30 SECONDS TWICE DAILY Per instructio ns RINSE WITH 1/2 OZ FOR 30 SECONDS TWICE DAILY (route: mucous membrane) Med Classific ation: Mouth-Thr oat-Denta l - Preparati ons mirtazapine 7.5 mg tablet 12-06 00:00: 00 Yes [id number] 1 tablet BEDTIME 1 tablet BEDTIME (route: oral) Med Classific ation: Central Nervous System Agents atorvastati n 40 mg tablet 12-04 00:00: 00 12-27 00:00 :00 No [id number] Per instruc tions Per instructio ns (route: oral) Med Classific ation: Cardiovas cular Therapy Agents pantoprazol e 40 mg tablet,cesar yed release 12-01 00:00: 00 12-27 00:00 :00 No [id number] Per instruc tions Per instructio ns (route: oral) Med Classific ation: Gastroint estinal Therapy Agents famotidine 20 mg tablet 11-29 00:00: 00 12-27 00:00 :00 No [id number] Per instruc tions Per instructio ns (route: oral) Med Classific ation: Gastroint estinal Therapy Agents metoprolol succinate ER 25 mg tablet,exte nded release 24 hr 11-29 00:00: 00 12-27 00:00 :00 No [id number] Per instruc tions Per instructio ns (route: oral) Med Classific ation: Cardiovas cular Therapy Agents acetaminoph en 325 mg tablet 12-27 00:00: 00 Yes [id number] 2 tablet EVERY 6 HOURS 2 tablet EVERY 6 HOURS (route: oral) Med Classific ation: Analgesic , Anti-infl ammatory or Antipyret ic Culturelle 10 billion cell capsule 12-27 00:00: 00 Yes [id number] 1 capsule DAILY 1 capsule DAILY (route: oral) Med Classific ation: Gastroint estinal Therapy Agents oxycodone 5 mg tablet 12-27 00:00: 00 02-21 23:59 :00 No [id number] 1 tablet EVERY 6 HOURS 1 tablet EVERY 6 HOURS (route: oral) Med Classific ation: Analgesic , Anti-infl ammatory or Antipyret ic Seroquel 25 mg tablet 12-27 00:00: 00 Yes [id number] 1 tablet BEDTIME 1 tablet BEDTIME (route: oral) Med Classific ation: Central Nervous System Agents doxycycline hyclate 100 mg capsule 01-24 00:00: 00 02-21 23:59 :00 No [id number] 1 capsule 2 TIMES DAILY 1 capsule 2 TIMES DAILY (route: oral) Med Classific ation: Anti-Infe ctive Agents metoprolol succinate ER 25 mg tablet,exte nded release 24 hr 03-02 00:00: 00 Yes [id number] .5 tablet DAILY .5 tablet DAILY (route: oral) Med Classific ation: Cardiovas cular Therapy Agents tramadol 50 mg tablet 03-02 00:00: 00 Yes [id number] 1 tablet EVERY 8 HOURS 1 tablet EVERY 8 HOURS (route: oral) Med Classific ation: Analgesic , Anti-infl ammatory or Antipyret ic Vital Signs Vital Name Observation Time Observation Value Commen ts Temperature 2024-04-03 17:06:00.000 98.7 [degF] Temperature 2024-03-31 09:57:00.000 97.4 [degF] Temperature 2024-03-24 09:17:00.000 96.6 [degF] Temperature 2024-03-03 09:57:00.000 96.4 [degF] Temperature 2024-03-03 09:25:00.000 97 [degF] Temperature 2024-02-29 11:41:00.000 98.6 [degF] Pulse 2024-04-03 17:06:00.000 72 /min Pulse 2024-03-31 09:57:00.000 76 /min Pulse 2024-03-24 09:17:00.000 72 /min Pulse 2024-03-03 09:57:00.000 72 /min Pulse 2024-03-03 09:25:00.000 74 /min Pulse 2024-02-29 11:41:00.000 76 /min O2 Saturation (%) 2024-04-03 17:06:00.000 96 % O2 Saturation (%) 2024-03-31 09:57:00.000 98 % O2 Saturation (%) 2024-03-24 09:17:00.000 94 % O2 Saturation (%) 2024-03-03 09:57:00.000 98 % O2 Saturation (%) 2024-02-29 11:41:00.000 92 % Respirations 2024-04-03 17:06:00.000 18 /min Respirations 2024-03-31 09:57:00.000 18 /min Respirations 2024-03-24 09:17:00.000 18 /min Respirations 2024-03-03 09:57:00.000 18 /min Respirations 2024-03-03 09:25:00.000 18 /min Respirations 2024-02-29 11:41:00.000 20 /min Systolic Blood Pressure 2024-04-03 17:06:00.000 118 mm [Hg] Systolic Blood Pressure 2024-03-31 09:57:00.000 106 mm [Hg] Systolic Blood Pressure 2024-03-24 09:17:00.000 100 mm [Hg] Systolic Blood Pressure 2024-03-03 09:25:00.000 94 mm[ Hg] Systolic Blood Pressure 2024-02-29 11:41:00.000 90 mm[ Hg] Diastolic Blood Pressure 2024-04-03 17:06:00.000 64 mm [Hg] Diastolic Blood Pressure 2024-03-31 09:57:00.000 66 mm [Hg] Diastolic Blood Pressure 2024-03-24 09:17:00.000 64 mm [Hg] Diastolic Blood Pressure 2024-03-03 09:25:00.000 64 mm [Hg] Diastolic Blood Pressure 2024-02-29 11:41:00.000 60 mm [Hg] Plan of Treatment Planned Activity Planned Date Details Comments Future Scheduled Test SKILLED NU RSE TO EVALUATE PATIENT, IDENTIFY PRIMARY AND CO-MORBID CONDITIONS CODED PER CODING GUIDELINES, AND DEVELOP PATIENT SPECIFIC PLAN OF CARE THAT INCLUDES PATIENT GOAL FOR HOME HEALTH. [code = SKILLED NURSE TO EVALUATE PATIENT, IDENTIFY PRIMARY AND CO-MORBID CONDITIONS CODED PER CODING GUIDELINES, AND DEVELOP PATIENT SPECIFIC PLAN OF CARE THAT INCLUDES PATIENT GOAL FOR HOME HEALTH.] Future Scheduled Test SKILLED NU RSE TO REVIEW PATIENT MEDICATIONS. INSTRUCT PATIENT/CAREGIVER ON MONITORING OF EFFECTIVENESS, ADVERSE DRUG REACTIONS, SIDE EFFECTS OF ALL MEDICATIONS (PRESCRIPTION/-OTC), AND HOW AND WHEN TO REPORT PROBLEMS. [code = SKILLED NURSE TO REVIEW PATIENT MEDICATIONS. INSTRUCT PATIENT/CAREGIVER ON MONITORING OF EFFECTIVENESS, ADVERSE DRUG REACTIONS, SIDE EFFECTS OF ALL MEDICATIONS (PRESCRIPTION/-OTC), AND HOW AND WHEN TO REPORT PROBLEMS.] Future Scheduled Test SKILLED NU RSE TO ASSESS ANXIETY AND PROVIDE ASSISTANCE TO PATIENT FOR UNDERSTANDING AND MANAGEMENT OF FEELINGS. [code = SKILLED NURSE TO ASSESS ANXIETY AND PROVIDE ASSISTANCE TO PATIENT FOR UNDERSTANDING AND MANAGEMENT OF FEELINGS.] Future Scheduled Test SKILLED NU RSE FOR INSTRUCTION/ REINFORCEMENT OF NEEDS RELATED TO NUTRITION/HYDRATION. [code = SKILLED NURSE FOR INSTRUCTION/ REINFORCEMENT OF NEEDS RELATED TO NUTRITION/HYDRATION.] Future Scheduled Test SKILLED NU RSE FOR O/A OF MUSCULOSKELETAL STATUS AND TEACHING ON MEASURES TO MANAGE MUSCULOSKELETAL DISEASE AND TO MAINTAIN SAFETY WITH ACTIVITY [code = SKILLED NURSE FOR O/A OF MUSCULOSKELETAL STATUS AND TEACHING ON MEASURES TO MANAGE MUSCULOSKELETAL DISEASE AND TO MAINTAIN SAFETY WITH ACTIVITY] Future Scheduled Test SKILLED NU RSE TO PROVIDE TEACHING ON SIGNS AND SYMPTOMS AND MANAGEMENT OF HYPERTENSION. [code = SKILLED NURSE TO PROVIDE TEACHING ON SIGNS AND SYMPTOMS AND MANAGEMENT OF HYPERTENSION.] Future Scheduled Test PATIENT JOHNSON S A RISK OF HOSPITALIZATION AND ED USE. SKILLED NURSE TO ESTABLISH SUPPORT MEASURES TO MINIMIZE RISK OF HOSPITALIZATION AND ED USE, AND INSTRUCT PATIENT/CAREGIVER ON METHODS TO REDUCE AVOIDABLE HOSPITALIZATION AND ED USE. [code = PATIENT HAS A RISK OF HOSPITALIZATION AND ED USE. SKILLED NURSE TO ESTABLISH SUPPORT MEASURES TO MINIMIZE RISK OF HOSPITALIZATION AND ED USE, AND INSTRUCT PATIENT/CAREGIVER ON METHODS TO REDUCE AVOIDABLE HOSPITALIZATION AND ED USE.] Future Scheduled Test SKILLED NU RSE TO PROVIDE INSTRUCTION TO PATIENT/CAREGIVER RELATED TO DISCHARGE PLANNING. [code = SKILLED NURSE TO PROVIDE INSTRUCTION TO PATIENT/CAREGIVER RELATED TO DISCHARGE PLANNING.] Future Scheduled Test SKILLED NU RSE TO PERFORM HOME SAFETY AND FALL ASSESSMENT AND PROVIDE INSTRUCTION TO IMPLEMENT HOME SAFETY AND FALL PREVENTION STRATEGIES. [code = SKILLED NURSE TO PERFORM HOME SAFETY AND FALL ASSESSMENT AND PROVIDE INSTRUCTION TO IMPLEMENT HOME SAFETY AND FALL PREVENTION STRATEGIES.] Future Scheduled Test SKILLED NU RSE FOR OBSERVATION AND ASSESSMENT OF PATIENTS PAIN LEVEL AND EFFECTIVENESS OF PAIN MANAGEMENT REGIMEN. SKILLED NURSE TO INSTRUCT PATIENT/CAREGIVER REGARDING PHARMACOLOGIC AND NON-PHARMACOLOGIC PAIN CONTROL MEASURES. SKILLED NURSE TO REPORT TO PHYSICIAN IF PAIN IS UNCONTROLLED WITH CURRENT PAIN MANAGEMENT REGIMEN. [code = SKILLED NURSE FOR OBSERVATION AND ASSESSMENT OF PATIENTS PAIN LEVEL AND EFFECTIVENESS OF PAIN MANAGEMENT REGIMEN. SKILLED NURSE TO INSTRUCT PATIENT/CAREGIVER REGARDING PHARMACOLOGIC AND NON-PHARMACOLOGIC PAIN CONTROL MEASURES. SKILLED NURSE TO REPORT TO PHYSICIAN IF PAIN IS UNCONTROLLED WITH CURRENT PAIN MANAGEMENT REGIMEN.] Future Scheduled Test SKILLED NU RSE TO ASSESS PATIENT'S SKIN INTEGRITY AND INSTRUCT PATIENT/CAREGIVER ON MEASURES TO PREVENT PRESSURE ULCERS. [code = SKILLED NURSE TO ASSESS PATIENT'S SKIN INTEGRITY AND INSTRUCT PATIENT/CAREGIVER ON MEASURES TO PREVENT PRESSURE ULCERS.] Future Scheduled Test SKILLED NU RSE TO PROVIDE ASSESSMENT AND TEACHING/REINFORCEMENT OF MANAGEMENT OF DEPRESSION INCLUDING DISEASE PROCESS, MEDICATION MANAGEMENT, COPING SKILLS AND IDENTIFY CHANGES ASSOCIATED WITH DEPRESSIVE DISORDERS FOR EARLY INTERVENTION. [code = SKILLED NURSE TO PROVIDE ASSESSMENT AND TEACHING/REINFORCEMENT OF MANAGEMENT OF DEPRESSION INCLUDING DISEASE PROCESS, MEDICATION MANAGEMENT, COPING SKILLS AND IDENTIFY CHANGES ASSOCIATED WITH DEPRESSIVE DISORDERS FOR EARLY INTERVENTION. ] Future Scheduled Test PHYSICAL T HERAPIST TO EVALUATE PATIENT SECONDARY TO FUNCTIONAL DEFICITS/SAFETY CONCERNS. PHYSICAL THERAPIST TO ASSESS BEST PRACTICE INTERVENTIONS TO ASSIST PATIENTS TO IMPROVE OR STABILIZE MEDICAL STATUS AND PREVENT RE-HOSPITALIZATION. MEASURES INCLUDING REVIEW AND IDENTIFICATION OF CONCERNS FOR THE FOLLOWING AREAS: DEPRESSION, DRUG REGIMEN, ENVIRONMENTAL SAFETY ISSUES AND FALLS, PRESSURE ULCERS, PAIN, AND DISEASE MANAGEMENT. PHYSICAL THERAPY TO INSTRUCT PATIENT/CAREGIVER ON SAFE TRANSFER TECHNIQUES USING PROPER BODY MECHANICS AND EQUIPMENT. PHYSICAL THERAPY TO ASSESS AND RECOMMEND HOME SAFETY ADAPTATIONS AND EDUCATE PATIENT /CAREGIVER ON FALL PREVENTION STRATEGIES. PHYSICAL THERAPY FOR OBSERVATION AND ASSESSMENT OF PAIN, EFFECTIVENESS OF PAIN MANAGEMENT REGIMEN AND SKILLED TEACHING RELATED TO PAIN MANAGEMENT. THERAPIST TO REPORT INCREASED PAIN LEVEL TO PHYSICIAN FOR PROMPT INTERVENTION. PHYSICAL THERAPY TO INSTRUCT PATIENT/CAREGIVER ON BALANCE AND BALANCE STRATEGIES TO IMPROVE SAFE MOBILITY AND REDUCE RISK FOR FALL AND INJURY INCLUDING PARTICIPATION IN [facility] BALANCE SPECIALTY PROGRAM PHYSICAL THERAPY TO RECOMMEND ORTHOTICS/PROSTHETICS FOR MAINTAINING JOINT ALIGNMENT, PROTECTION OF JOINT INTEGRITY, AND IMPROVED FUNCTION. SUMMARY OF THERAPY EVAL/ASSESSMENT FINDINGS AND REASON(S) SKILLS OF A THERAPIST ARE INDICATED: PHYSICAL THERAPY RECERTIFICATION (02/25/24) PATIENT PARTICIPATED [facility]ED [facility] TREATMENT SESSIONS. PATIENT HAS MADE PROGRESS AND ACHIEVED SOME GOALS, HOWEVER LIMITED PROGRESS WITH TRANSFERS AND UNABLE TO AMB DUE TO ANXIETY, HIGH PAIN LEVEL ( OF THIS WEEK PATIENT NO LONGER HAS TRAMADOL). THIS VISIT PATIENT DEMO PROGRESS WITH CONTRACTURE MGMT (USE OF 1 PILLOW BEHIND KNEES INSTEAD OF 3 AT SOC) HOWEVER PATIENT CONTINUES TO REPORT CAN ONLY SIT IN WHEELCHAIR FOR MAX 20 MIN DUE TO PAIN. PATIENT AND CG REPORT COMPLIANCE WITH HEP 2X DAY. PATIENT REQUIRES CONTINUED PHYSICAL THERAPY FREQ 1X4WKS FOR PATIENT AND CG EDUC, STATIC STANDING, TRANSFER TRAINING. AMB GOAL DISCONTINUED DUE TO R PLANTAR FLEX CONTACTURE AND PATIENT REPORTING 10/10 PAIN IN BILAT FEET. 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 BARRIER TO PATIENT ACHIEVING GOALS IS ANXIETY, REPORT OF HIGH PAIN LEVEL, MD JUAN M VELASQUEZ REFUSES TO ISSUE TRAMADOL DESPITE PATIENT BEING ON TRAMADOL BEFORE FEMURE FRACTURE. ORTHO MD TREATING FEMUR FX NO LONGER WILLING TO ISSUE SRIPT. FOR CONTRACTURE MANAGEMENT, EDUC PATIENT ON USE OF DORSIFLEX STATIC SPLINT, PATIENT DEPENDENT ON APPLICATION. PATIENT ABLE TO TOLERATE 10 MIN THEN REPORTED PAIN LEVEL TOO HIGH. EDUC PATIENT RECOMMEND PATIENT WEAR AT NIGHT, HOWEVER PATIENT REPORTS THAT WOULD NOT BE POSSIBLE. TEXTED CG ADI PHOTO OF SPLINT APPLIED AND INFORMED THAT NEXT VISITS PHYSICAL THERAPY VISITS REQUIRE WOOL HAT FORMING MACHINE TENDER TO BE PRESENT, HOWEVER NO REPLY FROM ADI. BEDRAIL THAT PATIENT COULD USE TO FACILIATE SITTING ON EDGE OF BED, MAXIMIZING R HEEL FLAT NOT AVAIL. THIS THERAPIST CALLED [facility] MULTIPLE TIMES, HOWEVER NO BED RAIL ABAIL. SPOKE WITH MARIA ELENA NURSE NAVIGATOR OF MD [facility] OFFICE, MARIA ELENA FAXED OVER [employer] REQUIRED PAPERWORK TO KETTY HOLGUIN OF [facility]. INFORMED MARIA ELENA ABOUT PATIENT'S HIGH PAIN LEVEL AND REQUESTED THAT MD JUAN M VELASQUEZ CONSIDER ISSUING TRAMADOL SCRIPT. PATIENT ABLE TO COMPLETE BED MOBILITY ROLLING WITH MIN A (SOC: MAX A). GOAL MET. STATIC SIT IMPROVED TO GOOD (SOC: FAIR-). GOAL MET. PATIENT ABLE TO COMPLETE SIT-->SUPINE WITH SUPERVISION (SOC: MAX A). GOAL MET. PATIENT MAX A WITH SQUAT PIVOT TRANSFERS (SOC: MAX A). NO PROGRESS TOWARDS GOALS DUE TO PATIENT'S NON-COMPLIANCE WITH CONTRACTURE MGMT, THER EXER, HEP AND REPORT OF HIGH PAIN LEVEL AND ANXIETY. PATIENT ABLE TO COMPLETE SIT-->STAND FROM WHEELCHAIR TO KITCHEN SINK WITH MOD A (SOC: UNABLE). PROGRESS BUT GOAL NOT MET. STATIC STAND = POOR- (SOC: ZERO). PROGRESS BUT GOAL NOT MET. PATIENT UNABLE TO AMB (SOC: UNABLE TO AMB). NO PROGRESS TOWARDS GOALS DUE TO PATIENT'S NON-COMPLIANCE WITH CONTRACTURE MGMT, HIGH PAIN LEVEL. GOAL DISCONTINUED. PATIENT ABLE TO COMPLETE BILAT LE THER EXER WITH SUPERVISION (SOC: VERBAL CUES). GOAL MET. [code = PHYSICAL THERAPIST TO EVALUATE PATIENT SECONDARY TO FUNCTIONAL DEFICITS/SAFETY CONCERNS. PHYSICAL THERAPIST TO ASSESS BEST PRACTICE INTERVENTIONS TO ASSIST PATIENTS TO IMPROVE OR STABILIZE MEDICAL STATUS AND PREVENT RE-HOSPITALIZATION. MEASURES INCLUDING REVIEW AND IDENTIFICATION OF CONCERNS FOR THE FOLLOWING AREAS: DEPRESSION, DRUG REGIMEN, ENVIRONMENTAL SAFETY ISSUES AND FALLS, PRESSURE ULCERS, PAIN, AND DISEASE MANAGEMENT. PHYSICAL THERAPY TO INSTRUCT PATIENT/CAREGIVER ON SAFE TRANSFER TECHNIQUES USING PROPER BODY MECHANICS AND EQUIPMENT. PHYSICAL THERAPY TO ASSESS AND RECOMMEND HOME SAFETY ADAPTATIONS AND EDUCATE PATIENT /CAREGIVER ON FALL PREVENTION STRATEGIES. PHYSICAL THERAPY FOR OBSERVATION AND ASSESSMENT OF PAIN, EFFECTIVENESS OF PAIN MANAGEMENT REGIMEN AND SKILLED TEACHING RELATED TO PAIN MANAGEMENT. THERAPIST TO REPORT INCREASED PAIN LEVEL TO PHYSICIAN FOR PROMPT INTERVENTION. PHYSICAL THERAPY TO INSTRUCT PATIENT/CAREGIVER ON BALANCE AND BALANCE STRATEGIES TO IMPROVE SAFE MOBILITY AND REDUCE RISK FOR FALL AND INJURY INCLUDING PARTICIPATION IN [facility] BALANCE SPECIALTY PROGRAM PHYSICAL THERAPY TO RECOMMEND ORTHOTICS/PROSTHETICS FOR MAINTAINING JOINT ALIGNMENT, PROTECTION OF JOINT INTEGRITY, AND IMPROVED FUNCTION. SUMMARY OF THERAPY EVAL/ASSESSMENT FINDINGS AND REASON(S) SKILLS OF A THERAPIST ARE INDICATED: PHYSICAL THERAPY RECERTIFICATION (02/25/24) PATIENT PARTICIPATED IN 5 SK[facility]ED [facility] TREATMENT SESSIONS. PATIENT HAS MADE PROGRESS AND ACHIEVED SOME GOALS, HOWEVER LIMITED PROGRESS WITH TRANSFERS AND UNABLE TO AMB DUE TO ANXIETY, HIGH PAIN LEVEL ( OF THIS WEEK PATIENT NO LONGER HAS TRAMADOL). THIS VISIT PATIENT DEMO PROGRESS WITH CONTRACTURE MGMT (USE OF 1 PILLOW BEHIND KNEES INSTEAD OF 3 AT SOC) HOWEVER PATIENT CONTINUES TO REPORT CAN ONLY SIT IN WHEELCHAIR FOR MAX 20 MIN DUE TO PAIN. PATIENT AND CG REPORT COMPLIANCE WITH HEP 2X DAY. PATIENT REQUIRES CONTINUED PHYSICAL THERAPY FREQ 1X4WKS FOR PATIENT AND CG EDUC, STATIC STANDING, TRANSFER TRAINING. AMB GOAL DISCONTINUED DUE TO R PLANTAR FLEX CONTACTURE AND PATIENT REPORTING 10/10 PAIN IN BILAT FEET. 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 BARRIER TO PATIENT ACHIEVING GOALS IS ANXIETY, REPORT OF HIGH PAIN LEVEL, MD JUAN M VELASQUEZ REFUSES TO ISSUE TRAMADOL DESPITE PATIENT BEING ON TRAMADOL BEFORE FEMURE FRACTURE. ORTHO MD TREATING FEMUR FX NO LONGER WILLING TO ISSUE SRIPT. FOR CONTRACTURE MANAGEMENT, EDUC PATIENT ON USE OF DORSIFLEX STATIC SPLINT, PATIENT DEPENDENT ON APPLICATION. PATIENT ABLE TO TOLERATE 10 MIN THEN REPORTED PAIN LEVEL TOO HIGH. EDUC PATIENT RECOMMEND PATIENT WEAR AT NIGHT, HOWEVER PATIENT REPORTS THAT WOULD NOT BE POSSIBLE. TEXTED CG ADI PHOTO OF SPLINT APPLIED AND INFORMED THAT NEXT VISITS PHYSICAL THERAPY VISITS REQUIRE WOOL HAT FORMING MACHINE TENDER TO BE PRESENT, HOWEVER NO REPLY FROM ADI. BEDRAIL THAT PATIENT COULD USE TO FACILIATE SITTING ON EDGE OF BED, MAXIMIZING R HEEL FLAT NOT AVAIL. THIS THERAPIST CALLED [facility] MULTIPLE TIMES, HOWEVER NO BED RAIL ABAIL. SPOKE WITH MARIA ELENA NURSE NAVIGATOR OF MD MCGOWAN'S OFFICE, MARIA ELENA FAXED OVER [employer] REQUIRED PAPERWORK TO KETTY HOLGUIN OF [facility]. INFORMED MARIA ELENA ABOUT PATIENT'S HIGH PAIN LEVEL AND REQUESTED THAT MD JUAN M VELASQUEZ CONSIDER ISSUING TRAMADOL SCRIPT. PATIENT ABLE TO COMPLETE BED MOBILITY ROLLING WITH MIN A (SOC: MAX A). GOAL MET. STATIC SIT IMPROVED TO GOOD (SOC: FAIR-). GOAL MET. PATIENT ABLE TO COMPLETE SIT-->SUPINE WITH SUPERVISION (SOC: MAX A). GOAL MET. PATIENT MAX A WITH SQUAT PIVOT TRANSFERS (SOC: MAX A). NO PROGRESS TOWARDS GOALS DUE TO PATIENT'S NON-COMPLIANCE WITH CONTRACTURE MGMT, THER EXER, HEP AND REPORT OF HIGH PAIN LEVEL AND ANXIETY. PATIENT ABLE TO COMPLETE SIT-->STAND FROM WHEELCHAIR TO KITCHEN SINK WITH MOD A (SOC: UNABLE). PROGRESS BUT GOAL NOT MET. STATIC STAND = POOR- (SOC: ZERO). PROGRESS BUT GOAL NOT MET. PATIENT UNABLE TO AMB (SOC: UNABLE TO AMB). NO PROGRESS TOWARDS GOALS DUE TO PATIENT'S NON-COMPLIANCE WITH CONTRACTURE MGMT, HIGH PAIN LEVEL. GOAL DISCONTINUED. PATIENT ABLE TO COMPLETE BILAT LE THER EXER WITH SUPERVISION (SOC: VERBAL CUES). GOAL MET.] Goal 2024-04-06 Patient Goal - TO GET OUT OF BED EASIER. Goal 2024-02-22 Patient Goal - YUDY ANDERSON INDEPENDENT Goal 2024-03-03 Patient Goal - YUDY ANDERSON INDEPENDENT Goal Provider Goal - A PLAN OF CARE WILL BE ESTABLISHED THAT MEETS PATIENT'S SNF NEEDS AND INCLUDES PATIENT GOAL FOR HOME HEALTH. Goal Provider Goal - PATIENT/CAREGIVER WILL VERBALIZE UNDERSTANDING OF EDUCATION PROVIDED ON MEDICATIONS BY THE END OF THE CERTIFICATION PERIOD. Goal Provider Goal - SYMPTOMS OF ANXIETY ARE IDENTIFIED AND INTERVENTIONS INITIATED TO ENABLE PATIENT TO UNDERSTAND AND MANAGE FEELINGS THROUGHOUT EPISODE. Goal Provider Goal - PATIENT/CAREGIVER WILL DEMONSTRATE ABILITY TO SELF MANAGE NEEDS RELATED TO NUTRITION/HYDRATION THROUGHOUT THE EPISODE. Goal Provider Goal - PATIENT/CAREGIVER WILL VERBALIZE/DEMONSTRATE ABILITY TO MANAGE MUSCULOSKELETAL DISEASE WHILE MAINTAINING SAFETY THROUGHOUT THE EPISODE. Goal Provider Goal - PATIENT/CAREGIVER WILL VERBALIZE SIGNS AND SYMPTOMS OF HYPERTENSION AND WILL BE ABLE TO DEMONSTRATE ABILITY TO MANAGE EXACERBATION BY END OF THE EPISODE. Goal Provider Goal - PATIENT WILL HAVE SUPPORT MEASURES ESTABLISHED TO PREVENT HOSPITALIZATION AND ED USE AND PATIENT/CAREGIVER WILL VERBALIZE/DEMONSTRATE METHODS TO REDUCE AVOIDABLE HOSPITALIZATION AND ED USE BY END OF EPISODE. Goal Provider Goal - PATIENT/CAREGIVER WILL VERBALIZE UNDERSTANDING OF DISCHARGE PLANNING INSTRUCTIONS BY DATE OF DISCHARGE. Goal Provider Goal - PATIENT/CAREGIVER WILL VERBALIZE/DEMONSTRATE EFFECTIVE HOME SAFETY AND FALL PREVENTION STRATEGIES THROUGHOUT CERTIFICATION PERIOD. Goal Provider Goal - PATIENT/CAREGIVER WILL DEMONSTRATE UNDERSTANDING OF PHARMACOLOGIC AND NONPHARMACOLOGIC PAIN CONTROL MEASURES AND PATIENT WILL HAVE IMPROVEMENT IN PAIN INTERFERING WITH ACTIVITY EVIDENCED BY PAIN CONTROLLED AT LEVEL OF 5 OR LESS BY END OF CERTIFICATION PERIOD. Goal Provider Goal - PATIENT/CAREGIVER WILL VERBALIZE UNDERSTANDING OF PRESSURE ULCER PREVENTION BY END OF THE EPISODE. Goal Provider Goal - PATIENT/CAREGIVER WILL VERBALIZE/DEMONSTRATE UNDERSTANDING OF THE MANAGEMENT OF DEPRESSION THROUGHOUT THE CERTIFICATION PERIOD AND SYMPTOMS ARE IDENTIFIED AND MANAGED TO MAINTAIN PATIENT SAFETY IN THE HOME. Goal Provider Goal - PHYSICAL THERAPY EVALUATION TO BE COMPLETED WITH RECOMMENDATIONS AND/OR WRITTEN TREATMENT PLAN OF CARE ESTABLISHED FOR THE PHYSICIANS SIGNATURE PATIENT/CAREGIVER VERBALIZES UNDERSTANDING OF THE INITIAL BEST PRACTICE RECOMMENDATIONS. PHYSICIAN TO BE NOTIFIED APPROPRIATE FOR ANY CHANGES OR COMPLICATIONS THROUGHOUT THE CERTIFICATION PERIOD. PATIENT/CAREGIVER WILL DEMONSTRATE SAFE TRANSFERS USING APPROPRIATE ASSISTIVE DEVICE, BODY MECHANICS AND EQUIPMENT. PATIENT/CAREGIVER WILL DEMONSTRATE/VERBALIZE UNDERSTANDING OF RECOMMENDATIONS TO INCREASE SAFETY IN THE HOME AND FALL PREVENTION. INCREASED PAIN OR INEFFECTIVE PAIN CONTROL MEASURES WILL BE IDENTIFIED AND PROMPTLY REPORTED TO THE PHYSICIAN. PATIENT/CAREGIVER WILL DEMONSTRATE EFFECTIVE PAIN MANAGEMENT. PATIENT/CAREGIVER WILL DEMONSTRATE IMPROVED BALANCE AND REDUCE THE RISK OF FALLS AND INJURY. PATIENT/CAREGIVER WILL DEMONSTRATE PROPER APPLICATION AND WEARING OF R DORSIFLEX STRETCHING SPINT. Reason for Visit REMAINS INPATIENT AT TIME OF DISCHARGE Encounters Start Date/Time End Date/Time Encounter Type Admission Type Attending [facility] Care [facility] Care Department Encounter ID Discharge Date Discharge Status Discharge Condition Discharge Reason Percent Goals Met 2023-12-28 00:00:00 2024-04-06 00:00:00 Outpatient RECERTIFIC ATION ERIC CHANDRA [facility] [id number] 2024-04-06 00:00:00 DISCHARGED /TRANSFERR ED TO A SHORT-TERM [facility] FOR INPATIENT CARE REMAINS INPATIENT AT TIME OF DISCHARGE ADMITTED TO HOSPITAL 17.39
== END 2024-05-17 15:06 | disposition home or self-care (01) ==
LOC: HO.HID 13:12
PROVIDERS: PCP Internal Medicine; Visit Provider Internal Medicine
DX: A04.72 Enterocolitis due to Clostridium difficile, not specified as recurrent (principal)
CPT/HCPCS: 99213

== ENCOUNTER → 2024-05-17 13:12 | Outpatient (BNVA) | payer MEDICARE, MEDICAID, SELFPAY | PROVIDERS: PCP Internal Medicine; Visit Provider Internal Medicine | DX: A04.72 Enterocolitis due to Clostridium difficile, not specified as recurrent (principal) | CPT/HCPCS: 99212 ==

== ENCOUNTER 2024-05-24 09:31 | Outpatient (REF) | payer MEDICARE, MEDICAID, SELFPAY ==
[2024-05-24 09:45] LABS: MANUAL DIFF FLAG NO
[2024-05-24 09:56] LABS: Basophils Percent Auto 0.5 % (0-2); Eosinophils Absolute Auto 0.2 X10*3/uL (0.0-0.4); Eosinophils Percent Auto 2.2 % (0-4); Hematocrit 38.6 % (37.0-47.0); Hemoglobin 11.7 g/dl (12.0-16.0); Imm Gran Abs Auto 0.03 X10*3/uL (0.00-0.03); Imm Gran Pct Auto 0.4 % (0.0-0.4); Lymphocytes Absolute Auto 2.1 X10*3/uL (1.2-4.9); Lymphocytes Percent Auto 27.5 % (20-40); Mean Corpuscular HGB Conc 30.3 g/dl (31.0-35.0); Mean Corpuscular Hemoglobin 26.1 pg (27.0-33.0); Monocytes Absolute Auto 0.5 X10*3/uL (0.1-1.2); Neutrophils Absolute Auto 4.9 x10*3/uL (2.0-8.3); Neutrophils Percent Auto 63.4 % (45-73); Platelet Count 378 X10*3/uL (160-400); Red Blood Count 4.49 X10*6/uL (4.20-5.50); Red Cell Distribution Width 19.4 % (11.0-16.0); White Blood Count 7.7 X10*3/uL (4.8-10.8)
[2024-05-24 10:26] LABS: Alanine Aminotransferase 16 U/L (0-31); Albumin Level 3.9 g/dL (3.5-5.0); Alkaline Phosphatase 122 U/L (39-117); Anion Gap 10 (12-20); Aspartate Amino Transferase 22 U/L (5-31); Bilirubin Total 0.3 mg/dL (0.0-1.0); Blood Urea Nitrogen 20 mg/dL (9-16); Calcium 9.9 mg/dL (8.4-10.2); Carbon Dioxide 28 mmol/L (22-29); Chloride 107 mmol/L (96-108); Cholesterol 255 mg/dL (<200); Estimated Glomerular Filt Rate > 60; Glucose Fasting 98 mg/dL (60-99); HDL Cholesterol 59 mg/dL (>40); Iron 24 mcg/dL (30-160); LDL Cholesterol Calculated 160 mg/dL (<100); Percent Iron Saturation 10 % (15-50); Phosphorus 3.5 mg/dL (2.7-4.5); Potassium 4.1 mmol/L (3.3-5.1); Sodium 141 mmol/L (135-145); Total Iron Binding Capacity 247 mcg/dL (228-428); Total Protein 7.4 g/dL (6.5-8.0); Triglycerides 181 mg/dL (<150); Unsaturated Iron Binding 223 ug/dL
[2024-05-24 10:41] LABS: Vitamin D 25-OH Total 73.5 ng/mL (>30)
[2024-05-24 10:50] LABS: Folate 15.7 ng/mL (> or = 4.0); Vitamin B12 625 pg/mL (200-900)
== END 2024-05-24 09:32 | disposition home or self-care (01) ==
LOC: HO.LAB 09:31
PROVIDERS: PCP Internal Medicine; Visit Provider Internal Medicine
DX: D64.9 Anemia, unspecified (principal); E78.5 Hyperlipidemia, unspecified; L89.152 Pressure ulcer of sacral region, stage 2; E53.8 Deficiency of other specified B group vitamins; E83.52 Hypercalcemia
CPT/HCPCS: 36415; 80053; 80061; 82306; 82607; 82746; 83540; 84100; 85025

== ENCOUNTER 2024-06-06 10:57 | Outpatient (AMB) | payer MEDICARE, MEDICAID, SELFPAY ==
--- NOTE | 2024-06-06 10:59 | HO.NEPHOV_ITS ---
Vital Signs 06/06/24 11:00 Height 5 ft Intake Visit Reasons: INP: Proteinuria/ Conf Director Of Scientific Research Required: No Accompanied by: WOOD GETTER Allergies No Known Allergies Allergy (Verified 06/06/24 11:01) Medication List - Last Reconciled 06/06/24 by Lucien Aparicio MD [adult diapers briefs As directed] atorvastatin 40 mg PO BEDTIME 90 days [bed rail As directed] famotidine 20 mg PO BID@0900,1200 90 days [foot inserts As directed] hospital bed As directed lorazepam 1 mg PO BID PRN 30 days metoprolol succinate ER 12.5 mg (1/2 x 25 mg) PO DAILY mirtazapine 7.5 mg PO DAILY 30 days pantoprazole 40 mg PO DAILY@0630 90 days quetiapine 50 mg PO BID 30 days temazepam 15 mg PO BEDTIME PRN 30 days tramadol 50 mg PO Q8H PRN 30 days vancomycin 125 mg PO .MWF HPI Comments Details: 73-year-old woman with proteinuria by dipstick. She has a history of C diff and currently on p.o. vancomycin. She was seen about a year ago for hypokalemia. This was corrected. Renal function has been stable. She was history of bilateral renal stones which has been asymptomatic. Urinalysis showed protein by dipstick with hematuria. This was in 03/26/2024. History of fracture have status post surgery. She has a healing decubitus ulcer. She has not had any protein creatinine ratio. She has a diaper in place. She was accompanied by her caregiver. She has no specific complaints today [facility] Medical History Recurrent Clostridioides difficile diarrhea External hemorrhoids Epidermal inclusion cyst White coat syndrome with high blood pressure but without hypertension Dry eyes Hyponatremia Hypercalcemia Diarrhea Renal calculi Constipation by delayed colonic transit GERD (gastroesophageal reflux disease) UTI (urinary tract infection) Villous adenoma of colon Insomnia Raynauds disease Anxiety Surgical History History of bronchoscopy History of tonsillectomy Family History Father Medical history unknown Mother Dementia Alzheimers disease Mental health disorder Brother Leukemia Sister Medical history unknown Social History Household Members: None Household Members Other:: residential Housing: Apartment Housing Other:: Leah Elkins prior to admission. Do you presently have visiting nurse or other home services: Yes ([employer]) Alcohol intake: former Comment: pt bed/chair bound at baseline Patient Tobacco Use Status: Former Tobacco user Tobacco use type: Cigarette e-Cigarette/Vaping Use: Never Used Second Hand Smoke Exposure: No Advance Directives Date on File: 11/23/22 service: No Current occupational status: retired Cognitive needs: No Hearing needs: No Vision needs: Yes Review of Systems Const Denies fever(s) and Denies weight loss Card Denies chest pain Resp Denies cough and Denies hemoptysis GI Denies abdominal pain, Denies diarrhea and Denies nausea Musc Denies back pain Neuro Denies focal weakness Physical Exam Comfortable Neck supple no JVD. Lungs entry equal no rales. Heart S1-S2 heard no gallop or rub. Abdomen soft nontender. Neuro alert awake oriented. No asterixis. Extremities no edema. Results Reviewed Nephrology Results: Hgb 11.7 g/dl (12.0-16.0) L 05/24/24 WBC 7.7 X10*3/uL (4.8-10.8) 05/24/24 Plt Count 378 X10*3/uL (160-400) 05/24/24 Sodium 141 mmol/L (135-145) 05/24/24 Potassium 4.1 mmol/L (3.3-5.1) 05/24/24 Chloride 107 mmol/L (96-108) 05/24/24 Carbon Dioxide 28 mmol/L (22-29) 05/24/24 BUN 20 mg/dL (9-16) H 05/24/24 Creatinine 0.65 mg/dL (0.5-1.4) 05/24/24 Calcium 9.9 mg/dL (8.4-10.2) 05/24/24 Phosphorus 3.5 mg/dL (2.7-4.5) 05/24/24 Assessment & Plan Assessment & Plan (1) Proteinuria: Code(s): R80.9 - Proteinuria, unspecified Category: Medical Plan 73-year-old woman with the essentially normal renal function with proteinuria by dipstick. She also had microscopic hematuria in the past. Serologies have been negative thus far. No monoclonal proteins were seen. Normal calcium levels. Serum creatinine stable around 0.9 mg/dL. Electrolytes were normal. First step would be to quantify proteinuria Check urine protein creatinine ratio. -ordered If this is elevated I would proceed with further workup otherwise we will manage her conservatively. Orders: Orders Creatinine Urine Today R80.9 - Proteinuria, unspecified UA and rflx microscopic Today R80.9 - Proteinuria, unspecified Total Protein Urine Random Today R80.9 - Proteinuria, unspecified Coding Level of Care Code New Pt Level 4 (84884) Diagnoses Proteinuria R80.9
--- OUTSIDE RECORDS SUMMARY | 2024-06-06 11:03 | XMS_ITS | Clinical Summary ---
Author Organization Unknown Care Team Providers Care Fire Department Marine Engineer Name Role Phone JUAN M VELASQUEZ MD, SHALONDA Unavailable Unavailable MARTI RN, KETTY Unavailable Unavailable DELICIA PRISON LIBRARIAN, LORETO Unavailable Unavail able MIKE PT, CELSO Unavailable Unavailable CHON COXN, EDER Unavailable Unavailable PRATEEK RN, ERIC Unavailable Unavailable Payers Payer Name Policy Type Policy Number Effective Date Expira tion Date MEDICARE - [facility] [place] - PDGM [id number] Problems Condition Name Condition Details Condition Category [...] OF FALLING Active 06-07 00:00: 00 OTHER HALF-WAY (CURRENT) DRUG THERAPY Active 06-07 00:00: 00 [...] 08-01 00:00: 00 07-18 23:59 :00 No [id number] Per instruc tions AT BEDTIME Per instructio ns AT BEDTIME (route: ophthalmic (eye)) Med Classific ation: Ophthalmi c Agents metoprolol succinate ER 25 mg tablet,exte nded release 24 hr 07-24 00:00: 00 07-18 23:59 :00 No [id number] 1 tablet DAILY 1 tablet DAILY (route: oral) Med Classific ation: Cardiovas cular Therapy Agents pantoprazol e 40 mg tablet,cesar yed release 07-24 00:00: 00 07-18 23:59 :00 No [id number] 1 tablet DAILY 1 tablet DAILY (route: oral) Med Classific ation: Gastroint estinal Therapy Agents quetiapine 50 mg tablet 07-24 00:00: 00 09-23 23:59 :00 No [id number] 1 tablet BEDTIME 1 tablet BEDTIME (route: oral) Med Classific ation: Central Nervous System Agents famotidine 20 mg tablet 2-15 00:00: 00 07-18 23:59 :00 No [id number] 1 tablet 2 TIMES DAILY 1 tablet 2 TIMES DAILY (route: oral) Med Classific ation: Gastroint estinal Therapy Agents lorazepam 1 mg tablet 07-11 00:00: 00 07-18 23:59 :00 No [id number] Per instruc tions TWICE A DAY NEEDED Per instructio ns TWICE A DAY NEEDED (route: oral) Med Classific ation: Central Nervous System Agents temazepam 15 mg capsule 07-11 00:00: 00 07-18 23:59 :00 No [id number] Per instruc tions EVERY DAY AT BEDTIME NEEDED Per instructio ns EVERY DAY AT BEDTIME NEEDED (route: oral) Med Classific ation: Central Nervous System Agents doxycycline hyclate 50 mg capsule -31 00:00: 00 07-17 23:59 :00 No [id number] Per instruc tions TWICE A DAY FOR 10 DAYS Per instructio ns TWICE A DAY FOR 10 DAYS (route: oral) Med Classific ation: Anti-Infe ctive Agents biotin 1 mg tablet 08-04 00:00: 00 07-18 23:59 :00 No [id number] 1 tablet EVERY AM 1 tablet EVERY AM (route: oral) Med Classific ation: Electroly te Balance-N utritiona l Products CoQ-10 100 mg capsule 08-04 00:00: 00 07-18 23:59 :00 No [id number] 1 capsule EVERY AM 1 capsule EVERY AM (route: oral) Med Classific ation: Alternati ve Therapy Vitamin C 100 mg tablet 08-04 00:00: 00 07-18 23:59 :00 No [id number] 1 tablet 2 TIMES DAILY 1 tablet 2 TIMES DAILY (route: oral) Med Classific ation: Electroly te Balance-N utritiona l Products bisacodyl 10 mg rectal suppository 2023-0 3-07 00:00: 00 07-18 23:59 :00 No [id number] constipatio n 1 supposi tory, rectal NEEDED 1 suppositor y, rectal NEEDED (route: rectal) Med Classific ation: Gastroint estinal Therapy Agents doxycycline hyclate 50 mg capsule 4-19 00:00: 00 11-05 23:59 :00 No [id number] 1 capsule 2 TIMES DAILY 1 capsule 2 TIMES DAILY (route: oral) Med Classific ation: Anti-Infe ctive Agents quetiapine 50 mg tablet -19 00:00: 00 07-18 23:59 :00 No [id number] 1 tablet 2 TIMES DAILY 1 tablet 2 TIMES DAILY (route: oral) Med Classific ation: Central Nervous System Agents Senna Lax 8.6 mg tablet 09-23 00:00: 00 07-18 23:59 :00 No [id number] 1 tablet DIRECTED 1 tablet DIRECTED (route: oral) Med Classific ation: Gastroint estinal Therapy Agents doxycycline hyclate 50 mg capsule 11-05 00:00: 00 07-18 23:59 :00 No [id number] 1 capsule 2 TIMES DAILY 1 capsule 2 TIMES DAILY (route: oral) Med Classific ation: Anti-Infe ctive Agents levofloxaci n 500 mg tablet -12 00:00: 00 11-21 23:59 :00 No [id number] 1 tablet DAILY 1 tablet DAILY (route: oral) Med Classific ation: Anti-Infe ctive Agents phenazopyri dine 100 mg tablet 6-13 00:00: 00 07-18 23:59 :00 No [id number] 1 tablet 3 TIMES DAILY 1 tablet 3 TIMES DAILY (route: oral) Med Classific ation: Genitouri nary Therapy Macrodantin 100 mg capsule 9-14 00:00: 00 02-25 23:59 :00 No [id number] 100 mg 2 TIMES DAILY 100 mg 2 TIMES DAILY (route: oral) Med Classific ation: Genitouri nary Therapy atorvastati n 40 mg tablet 1-18 00:00: 00 Yes [id number] Per instruc tions EVERYDAY AT BEDTIME Per instructio ns EVERYDAY AT BEDTIME (route: oral) Med Classific ation: Cardiovas cular Therapy Agents lorazepam 1 mg tablet 08-11 00:00: 00 Yes [id number] Per instruc tions TWICE A DAY NEEDED Per instructio ns TWICE A DAY NEEDED (route: oral) Med Classific ation: Central Nervous System Agents temazepam 15 mg capsule 08-11 00:00: 00 Yes [id number] Per instruc tions AT BEDTIME NEEDED Per instructio ns AT BEDTIME NEEDED (route: oral) Med Classific ation: Central Nervous System Agents metoprolol succinate ER 25 mg tablet,exte nded release 24 hr 08-08 00:00: 00 03-03 23:59 :00 No [id number] Per instruc tions EVERY DAY Per instructio ns EVERY DAY (route: oral) Med Classific ation: Cardiovas cular Therapy Agents pantoprazol e 40 mg tablet,cesar yed release 08-08 00:00: 00 Yes [id number] Per instruc tions EVERY DAY Per instructio ns EVERY DAY (route: oral) Med Classific ation: Gastroint estinal Therapy Agents quetiapine 50 mg tablet 08-08 00:00: 00 10-06 00:00 :00 No [id number] Per instruc tions TWICE A DAY FOR 30 DAYS Per instructio ns TWICE A DAY FOR 30 DAYS (route: oral) Med Classific ation: Central Nervous System Agents doxycycline hyclate 100 mg tablet 10-03 00:00: 00 10-08 23:59 :00 No [id number] 1 tablet 2 TIMES DAILY 1 tablet 2 TIMES DAILY (route: oral) Med Classific ation: Anti-Infe ctive Agents famotidine 20 mg tablet 10-06 00:00: 00 Yes [id number] 1 tablet 2 TIMES DAILY 1 tablet 2 TIMES DAILY (route: oral) Med Classific ation: Gastroint estinal Therapy Agents Hemorrhoida l 0.25 %-3 %-12 % cream 10-06 00:00: 00 Yes [id number] Per instruc tions DAILY Per instructio ns DAILY (route: rectal) Med Classific ation: Anorectal Preparati ons quetiapine 25 mg tablet 10-06 00:00: 00 Yes [id number] Per instruc tions 2 TIMES DAILY Per instructio ns 2 TIMES DAILY (route: oral) Med Classific ation: Central Nervous System Agents tramadol 50 mg tablet 10-06 00:00: 00 02-21 23:59 :00 No [id number] 1 tablet EVERY 6 HOURS 1 tablet EVERY 6 HOURS (route: oral) Med Classific ation: Analgesic , Anti-infl ammatory or Antipyret ic lorazepam 1 mg tablet 12-19 00:00: 00 12-27 00:00 :00 No [id number] Per instruc tions Per instructio ns (route: oral) Med Classific ation: Central Nervous System Agents chlorhexidi ne gluconate 0.12 % mouthwash 12-12 00:00: 00 12-27 00:00 :00 No [id number] Per instruc tions RINSE WITH 1/2 OZ FOR 30 SECONDS TWICE DAILY Per instructio ns RINSE WITH 1/2 OZ FOR 30 SECONDS TWICE DAILY (route: mucous membrane) Med Classific ation: Mouth-Thr oat-Denta l - Preparati ons mirtazapine 7.5 mg tablet 12-06 00:00: 00 Yes [id number] 1 tablet BEDTIME 1 tablet BEDTIME (route: oral) Med Classific ation: Central Nervous System Agents atorvastati n 40 mg tablet 12-04 00:00: 00 12-27 00:00 :00 No [id number] Per instruc tions Per instructio ns (route: oral) Med Classific ation: Cardiovas cular Therapy Agents pantoprazol e 40 mg tablet,cesar yed release 12-01 00:00: 00 12-27 00:00 :00 No [id number] Per instruc tions Per instructio ns (route: oral) Med Classific ation: Gastroint estinal Therapy Agents famotidine 20 mg tablet 11-29 00:00: 00 12-27 00:00 :00 No [id number] Per instruc tions Per instructio ns (route: oral) Med Classific ation: Gastroint estinal Therapy Agents metoprolol succinate ER 25 mg tablet,exte nded release 24 hr 11-29 00:00: 00 12-27 00:00 :00 No [id number] Per instruc tions Per instructio ns (route: oral) Med Classific ation: Cardiovas cular Therapy Agents acetaminoph en 325 mg tablet 12-27 00:00: 00 Yes [id number] 2 tablet EVERY 6 HOURS 2 tablet EVERY 6 HOURS (route: oral) Med Classific ation: Analgesic , Anti-infl ammatory or Antipyret ic Culturelle 10 billion cell capsule 12-27 00:00: 00 Yes [id number] 1 capsule DAILY 1 capsule DAILY (route: oral) Med Classific ation: Gastroint estinal Therapy Agents oxycodone 5 mg tablet 12-27 00:00: 00 02-21 23:59 :00 No [id number] 1 tablet EVERY 6 HOURS 1 tablet EVERY 6 HOURS (route: oral) Med Classific ation: Analgesic , Anti-infl ammatory or Antipyret ic Seroquel 25 mg tablet 12-27 00:00: 00 Yes [id number] 1 tablet BEDTIME 1 tablet BEDTIME (route: oral) Med Classific ation: Central Nervous System Agents doxycycline hyclate 100 mg capsule 01-24 00:00: 00 02-21 23:59 :00 No [id number] 1 capsule 2 TIMES DAILY 1 capsule 2 TIMES DAILY (route: oral) Med Classific ation: Anti-Infe ctive Agents metoprolol succinate ER 25 mg tablet,exte nded release 24 hr 03-02 00:00: 00 Yes [id number] .5 tablet DAILY .5 tablet DAILY (route: oral) Med Classific ation: Cardiovas cular Therapy Agents tramadol 50 mg tablet 03-02 00:00: 00 Yes [id number] 1 tablet EVERY 8 HOURS 1 tablet [...] FOR FALL AND INJURY INCLUDING PARTICIPATION IN [facility] BALANCE SPECIALTY PROGRAM PHYSICAL THERAPY TO RECOMMEND [...] IN BILAT FEET. INFORMED PATIENT AND CG DESIGN QUALITY ENGINEER ADI THAT THIS THERAPIST WILL EXTEND PHYSICAL THERAPY HOWEVER PATIENT WILL NOT HAVE IMPROVEMENT WITHOUT DESIGN QUALITY ENGINEER ADI PRESENT, THIS THERAPIST ARRANGED 3 VISITS [...] THAT NEXT VISITS PHYSICAL THERAPY VISITS REQUIRE DESIGN QUALITY ENGINEER TO BE PRESENT, HOWEVER NO REPLY FROM ADI. BEDRAIL THAT PATIENT COULD USE TO FACILIATE SITTING ON EDGE OF BED, MAXIMIZING R HEEL FLAT NOT AVAIL. THIS THERAPIST CALLED [facility] MULTIPLE TIMES, HOWEVER NO BED RAIL ABAIL. SPOKE WITH MARIA ELENA NURSE NAVIGATOR OF MD MCGOWAN'S OFFICE, MARIA ELENA FAXED OVER [employer] REQUIRED PAPERWORK TO KETTY HOLGUIN OF [employer]. INFORMED MARIA ELENA ABOUT PATIENT'S HIGH PAIN [...] FOR FALL AND INJURY INCLUDING PARTICIPATION IN [facility] BALANCE SPECIALTY PROGRAM PHYSICAL THERAPY TO RECOMMEND [...] IN BILAT FEET. INFORMED PATIENT AND CG DESIGN QUALITY ENGINEER ADI THAT THIS THERAPIST WILL EXTEND PHYSICAL THERAPY HOWEVER PATIENT WILL NOT HAVE IMPROVEMENT WITHOUT DESIGN QUALITY ENGINEER ADI PRESENT, THIS THERAPIST ARRANGED 3 VISITS [...] THAT NEXT VISITS PHYSICAL THERAPY VISITS REQUIRE DESIGN QUALITY ENGINEER TO BE PRESENT, HOWEVER NO REPLY FROM ADI. BEDRAIL THAT PATIENT COULD USE TO FACILIATE SITTING ON EDGE OF BED, MAXIMIZING R HEEL FLAT NOT AVAIL. THIS THERAPIST CALLED [facility] MULTIPLE TIMES, HOWEVER NO BED RAIL ABAIL. SPOKE WITH MARIA ELENA NURSE NAVIGATOR OF MD MCGOWAN'S OFFICE, MARIA ELENA FAXED OVER [employer] REQUIRED PAPERWORK TO KETTY HOLGUIN OF [facility] [employer]. INFORMED AMRIA ELENA ABOUT PATIENT'S HIGH PAIN LEVEL AND [...] CARE WILL BE ESTABLISHED THAT MEETS PATIENT'S CARE HOME NEEDS AND INCLUDES PATIENT GOAL FOR HOME [...] End Date/Time Encounter Type Admission Type Attending [facility] Care Department Encounter ID Discharge Date Discharge Status Discharge Condition Discharge Reason Percent Goals Met 2023-12-28 00:00:00 2024-04-06 00:00:00 Outpatient RECERTIFIC ATION ERIC [facility] [id number] 2024-04-06 00:00:00 DISCHARGED /TRANSFERR ED TO A SHORT-TERM [facility] FOR INPATIENT CARE REMAINS INPATIENT AT TIME OF DISCHARGE ADMITTED TO HOSPITAL 17.39
--- OUTSIDE RECORDS SUMMARY | 2024-06-06 11:03 | XMS_ITS | Clinical Summary ---
Author Organization Unknown Care Team Providers Care Insurance Biller Name Role Phone JUAN M VELASQUEZ MD, SHALONDA Unavailable Unavailable MARTI RN, KETTY Unavailable Unavailable DELICIA COOK CAMP, LORETO Unavailable Unavail able MIKE PT, CELSO Unavailable Unavailable CHON COXN, EDER Unavailable Unavailable PRATEEK RN, ERIC Unavailable Unavailable Payers Payer Name Policy Type Policy Number Effective Date Expira tion Date MEDICARE - [facility] [place]/[facility] - PDGM [id number] Problems Condition Name Condition Details Condition Category [...] OF FALLING Active 06-07 00:00: 00 OTHER ASSISTED (CURRENT) DRUG THERAPY Active 06-07 00:00: 00 [...] 08-01 00:00: 00 07-18 23:59 :00 No [id number] Per instruc tions AT BEDTIME Per instructio ns AT BEDTIME (route: ophthalmic (eye)) Med Classific ation: Ophthalmi c Agents metoprolol succinate ER 25 mg tablet,exte nded release 24 hr 07-24 00:00: 00 07-18 23:59 :00 No [id number] 1 tablet DAILY 1 tablet DAILY (route: oral) Med Classific ation: Cardiovas cular Therapy Agents pantoprazol e 40 mg tablet,cesar yed release 07-24 00:00: 00 07-18 23:59 :00 No [id number] 1 tablet DAILY 1 tablet DAILY (route: oral) Med Classific ation: Gastroint estinal Therapy Agents quetiapine 50 mg tablet 07-24 00:00: 00 09-23 23:59 :00 No [id number] 1 tablet BEDTIME 1 tablet BEDTIME (route: oral) Med Classific ation: Central Nervous System Agents famotidine 20 mg tablet 2-15 00:00: 00 07-18 23:59 :00 No [id number] 1 tablet 2 TIMES DAILY 1 tablet 2 TIMES DAILY (route: oral) Med Classific ation: Gastroint estinal Therapy Agents lorazepam 1 mg tablet 07-11 00:00: 00 07-18 23:59 :00 No [id number] Per instruc tions TWICE A DAY NEEDED Per instructio ns TWICE A DAY NEEDED (route: oral) Med Classific ation: Central Nervous System Agents temazepam 15 mg capsule 07-11 00:00: 00 07-18 23:59 :00 No [id number] Per instruc tions EVERY DAY AT BEDTIME NEEDED Per instructio ns EVERY DAY AT BEDTIME NEEDED (route: oral) Med Classific ation: Central Nervous System Agents doxycycline hyclate 50 mg capsule -31 00:00: 00 07-17 23:59 :00 No [id number] Per instruc tions TWICE A DAY FOR 10 DAYS Per instructio ns TWICE A DAY FOR 10 DAYS (route: oral) Med Classific ation: Anti-Infe ctive Agents biotin 1 mg tablet 08-04 00:00: 00 07-18 23:59 :00 No [id number] 1 tablet EVERY AM 1 tablet EVERY AM (route: oral) Med Classific ation: Electroly te Balance-N utritiona l Products CoQ-10 100 mg capsule 08-04 00:00: 00 07-18 23:59 :00 No [id number] 1 capsule EVERY AM 1 capsule EVERY AM (route: oral) Med Classific ation: Alternati ve Therapy Vitamin C 100 mg tablet 08-04 00:00: 00 07-18 23:59 :00 No [id number] 1 tablet 2 TIMES DAILY 1 tablet 2 TIMES DAILY (route: oral) Med Classific ation: Electroly te Balance-N utritiona l Products bisacodyl 10 mg rectal suppository 2023-0 3-07 00:00: 00 07-18 23:59 :00 No [id number] constipatio n 1 supposi tory, rectal NEEDED 1 suppositor y, rectal NEEDED (route: rectal) Med Classific ation: Gastroint estinal Therapy Agents doxycycline hyclate 50 mg capsule 4-19 00:00: 00 11-05 23:59 :00 No [id number] 1 capsule 2 TIMES DAILY 1 capsule 2 TIMES DAILY (route: oral) Med Classific ation: Anti-Infe ctive Agents quetiapine 50 mg tablet -19 00:00: 00 07-18 23:59 :00 No [id number] 1 tablet 2 TIMES DAILY 1 tablet 2 TIMES DAILY (route: oral) Med Classific ation: Central Nervous System Agents Senna Lax 8.6 mg tablet 09-23 00:00: 00 07-18 23:59 :00 No [id number] 1 tablet DIRECTED 1 tablet DIRECTED (route: oral) Med Classific ation: Gastroint estinal Therapy Agents doxycycline hyclate 50 mg capsule 11-05 00:00: 00 07-18 23:59 :00 No [id number] 1 capsule 2 TIMES DAILY 1 capsule 2 TIMES DAILY (route: oral) Med Classific ation: Anti-Infe ctive Agents levofloxaci n 500 mg tablet -12 00:00: 00 11-21 23:59 :00 No [id number] 1 tablet DAILY 1 tablet DAILY (route: oral) Med Classific ation: Anti-Infe ctive Agents phenazopyri dine 100 mg tablet 6-13 00:00: 00 07-18 23:59 :00 No [id number] 1 tablet 3 TIMES DAILY 1 tablet 3 TIMES DAILY (route: oral) Med Classific ation: Genitouri nary Therapy Macrodantin 100 mg capsule 9-14 00:00: 00 02-25 23:59 :00 No [id number] 100 mg 2 TIMES DAILY 100 mg 2 TIMES DAILY (route: oral) Med Classific ation: Genitouri nary Therapy atorvastati n 40 mg tablet 1-18 00:00: 00 Yes [id number] Per instruc tions EVERYDAY AT BEDTIME Per instructio ns EVERYDAY AT BEDTIME (route: oral) Med Classific ation: Cardiovas cular Therapy Agents lorazepam 1 mg tablet 08-11 00:00: 00 Yes [id number] Per instruc tions TWICE A DAY NEEDED Per instructio ns TWICE A DAY NEEDED (route: oral) Med Classific ation: Central Nervous System Agents temazepam 15 mg capsule 08-11 00:00: 00 Yes [id number] Per instruc tions AT BEDTIME NEEDED Per instructio ns AT BEDTIME NEEDED (route: oral) Med Classific ation: Central Nervous System Agents metoprolol succinate ER 25 mg tablet,exte nded release 24 hr 08-08 00:00: 00 03-03 23:59 :00 No [id number] Per instruc tions EVERY DAY Per instructio ns EVERY DAY (route: oral) Med Classific ation: Cardiovas cular Therapy Agents pantoprazol e 40 mg tablet,cesar yed release 08-08 00:00: 00 Yes [id number] Per instruc tions EVERY DAY Per instructio ns EVERY DAY (route: oral) Med Classific ation: Gastroint estinal Therapy Agents quetiapine 50 mg tablet 08-08 00:00: 00 10-06 00:00 :00 No [id number] Per instruc tions TWICE A DAY FOR 30 DAYS Per instructio ns TWICE A DAY FOR 30 DAYS (route: oral) Med Classific ation: Central Nervous System Agents doxycycline hyclate 100 mg tablet 10-03 00:00: 00 10-08 23:59 :00 No [id number] 1 tablet 2 TIMES DAILY 1 tablet 2 TIMES DAILY (route: oral) Med Classific ation: Anti-Infe ctive Agents famotidine 20 mg tablet 10-06 00:00: 00 Yes [id number] 1 tablet 2 TIMES DAILY 1 tablet 2 TIMES DAILY (route: oral) Med Classific ation: Gastroint estinal Therapy Agents Hemorrhoida l 0.25 %-3 %-12 % cream 10-06 00:00: 00 Yes [id number] Per instruc tions DAILY Per instructio ns DAILY (route: rectal) Med Classific ation: Anorectal Preparati ons quetiapine 25 mg tablet 10-06 00:00: 00 Yes [id number] Per instruc tions 2 TIMES DAILY Per instructio ns 2 TIMES DAILY (route: oral) Med Classific ation: Central Nervous System Agents tramadol 50 mg tablet 10-06 00:00: 00 02-21 23:59 :00 No [id number] 1 tablet EVERY 6 HOURS 1 tablet EVERY 6 HOURS (route: oral) Med Classific ation: Analgesic , Anti-infl ammatory or Antipyret ic lorazepam 1 mg tablet 12-19 00:00: 00 12-27 00:00 :00 No [id number] Per instruc tions Per instructio ns (route: oral) Med Classific ation: Central Nervous System Agents chlorhexidi ne gluconate 0.12 % mouthwash 12-12 00:00: 00 12-27 00:00 :00 No [id number] Per instruc tions RINSE WITH 1/2 OZ FOR 30 SECONDS TWICE DAILY Per instructio ns RINSE WITH 1/2 OZ FOR 30 SECONDS TWICE DAILY (route: mucous membrane) Med Classific ation: Mouth-Thr oat-Denta l - Preparati ons mirtazapine 7.5 mg tablet 12-06 00:00: 00 Yes [id number] 1 tablet BEDTIME 1 tablet BEDTIME (route: oral) Med Classific ation: Central Nervous System Agents atorvastati n 40 mg tablet 12-04 00:00: 00 12-27 00:00 :00 No [id number] Per instruc tions Per instructio ns (route: oral) Med Classific ation: Cardiovas cular Therapy Agents pantoprazol e 40 mg tablet,cesar yed release 12-01 00:00: 00 12-27 00:00 :00 No [id number] Per instruc tions Per instructio ns (route: oral) Med Classific ation: Gastroint estinal Therapy Agents famotidine 20 mg tablet 11-29 00:00: 00 12-27 00:00 :00 No [id number] Per instruc tions Per instructio ns (route: oral) Med Classific ation: Gastroint estinal Therapy Agents metoprolol succinate ER 25 mg tablet,exte nded release 24 hr 11-29 00:00: 00 12-27 00:00 :00 No [id number] Per instruc tions Per instructio ns (route: oral) Med Classific ation: Cardiovas cular Therapy Agents acetaminoph en 325 mg tablet 12-27 00:00: 00 Yes [id number] 2 tablet EVERY 6 HOURS 2 tablet EVERY 6 HOURS (route: oral) Med Classific ation: Analgesic , Anti-infl ammatory or Antipyret ic Culturelle 10 billion cell capsule 12-27 00:00: 00 Yes [id number] 1 capsule DAILY 1 capsule DAILY (route: oral) Med Classific ation: Gastroint estinal Therapy Agents oxycodone 5 mg tablet 12-27 00:00: 00 02-21 23:59 :00 No [id number] 1 tablet EVERY 6 HOURS 1 tablet EVERY 6 HOURS (route: oral) Med Classific ation: Analgesic , Anti-infl ammatory or Antipyret ic Seroquel 25 mg tablet 12-27 00:00: 00 Yes [id number] 1 tablet BEDTIME 1 tablet BEDTIME (route: oral) Med Classific ation: Central Nervous System Agents doxycycline hyclate 100 mg capsule 01-24 00:00: 00 02-21 23:59 :00 No [id number] 1 capsule 2 TIMES DAILY 1 capsule 2 TIMES DAILY (route: oral) Med Classific ation: Anti-Infe ctive Agents metoprolol succinate ER 25 mg tablet,exte nded release 24 hr 03-02 00:00: 00 Yes [id number] .5 tablet DAILY .5 tablet DAILY (route: oral) Med Classific ation: Cardiovas cular Therapy Agents tramadol 50 mg tablet 03-02 00:00: 00 Yes [id number] 1 tablet EVERY 8 HOURS 1 tablet [...] FOR FALL AND INJURY INCLUDING PARTICIPATION IN [facility] PROGRAM PHYSICAL THERAPY TO RECOMMEND [...] IN BILAT FEET. INFORMED PATIENT AND CG ONLINE JOURNALIST ADI THAT THIS THERAPIST WILL EXTEND PHYSICAL THERAPY HOWEVER PATIENT WILL NOT HAVE IMPROVEMENT WITHOUT ONLINE JOURNALIST ADI PRESENT, THIS THERAPIST ARRANGED 3 VISITS [...] THAT NEXT VISITS PHYSICAL THERAPY VISITS REQUIRE ONLINE JOURNALIST TO BE PRESENT, HOWEVER NO REPLY FROM ADI. BEDRAIL THAT PATIENT COULD USE TO FACILIATE SITTING ON EDGE OF BED, MAXIMIZING R HEEL FLAT NOT AVAIL. THIS THERAPIST CALLED [facility] MULT[facility] TIM[facility], HOWEVER NO BED RAIL ABAIL. SPOKE WITH MARIA ELENA NURSE NAVIGATOR OF [facility] OFFICE, MARIA ELENA FAXED OVER [employer] REQUIRED PAPERWORK TO KETTY HOLGUIN OF [place] [employer]. INFORMED MARIA ELENA ABOUT PATIENT'S HIGH PAIN [...] FOR FALL AND INJURY INCLUDING PARTICIPATION IN [facility] PROGRAM PHYSICAL THERAPY TO RECOMMEND [...] IN BILAT FEET. INFORMED PATIENT AND CG ONLINE JOURNALIST ADI THAT THIS THERAPIST WILL EXTEND PHYSICAL THERAPY HOWEVER PATIENT WILL NOT HAVE IMPROVEMENT WITHOUT ONLINE JOURNALIST ADI PRESENT, THIS THERAPIST ARRANGED 3 VISITS [...] THAT NEXT VISITS PHYSICAL THERAPY VISITS REQUIRE ONLINE JOURNALIST TO BE PRESENT, HOWEVER NO REPLY FROM ADI. BEDRAIL THAT PATIENT COULD USE TO FACILIATE SITTING ON EDGE OF BED, MAXIMIZING R HEEL FLAT NOT AVAIL. THIS THERAPIST CALLED [facility] MULTIPLE TIMES, HOWEVER NO BED RAIL ABAIL. SPOKE WITH MARIA ELENA NURSE NAVIGATOR OF [facility] OFFICE, AMRIA ELENA FAXED OVER [employer] REQUIRED PAPERWORK TO KETTY HOLGUIN [facility] [employer]. INFORMED MARIA ELENA ABOUT PATIENT'S HIGH PAIN [...] CARE WILL BE ESTABLISHED THAT MEETS PATIENT'S DETENTION NEEDS AND INCLUDES PATIENT GOAL FOR HOME [...] Admission Type Attending [facility] Care Department Encounter ID Discharge Date Discharge Status Discharge Condition Discharge Reason Percent Goals Met 2023-12-28 00:00:00 2024-04-06 00:00:00 Outpatient RECERTIFIC ATION ERIC CHANDRA [facility] [id number] 2024-04-06 00:00:00 DISCHARGED /TRANSFERR ED TO A SHORT-TERM [facility] FOR INPATIENT CARE REMAINS INPATIENT AT TIME OF DISCHARGE ADMITTED TO HOSPITAL 17.39
== END 2024-06-06 11:15 | disposition home or self-care (01) ==
PROVIDERS: PCP Internal Medicine; Referring Provider Internal Medicine; Visit Provider Internal Medicine Hypertension Specialist
DX: R80.9 Proteinuria, unspecified (principal)
CPT/HCPCS: 99204

== ENCOUNTER → 2024-06-06 10:57 | Outpatient (BNVA) | payer MEDICARE, MEDICAID, SELFPAY | PROVIDERS: PCP Internal Medicine; Referring Provider Internal Medicine; Visit Provider Internal Medicine Hypertension Specialist | DX: R80.9 Proteinuria, unspecified (principal) | CPT/HCPCS: 99202 ==

== ENCOUNTER 2024-06-13 10:09 | Outpatient (AMB) | payer MEDICARE, MEDICAID, SELFPAY ==
[2024-06-13 10:17] VITALS: BP 112/70
--- NOTE | 2024-06-13 10:17 | AM.OFFVISMDC ---
Intake Vital Signs 06/13/24 10:17 Height 5 ft BMI Reason not done Patient refused/unable BP 112/70 Blood Pressure Location Lt brachial Position Sitting Intake Visit Reasons: CANDEV G0439 Intake Note: Patient here for subsequent annual wellness visit [employer] Required: No Accompanied by: MANAGER [employer] Allergies No Known Allergies Allergy (Verified 06/13/24 10:30) Medication List - Last Reconciled 06/13/24 by Aniyah Mcgregor MD [adult diapers briefs As directed] atorvastatin 40 mg PO BEDTIME 90 days [bed rail As directed] famotidine 20 mg PO BID@0900,1200 90 days [foot inserts As directed] hospital bed As directed lorazepam 1 mg PO BID PRN 30 days metoprolol succinate ER 12.5 mg (1/2 x 25 mg) PO DAILY mirtazapine 7.5 mg PO DAILY 30 days pantoprazole 40 mg PO DAILY@0630 90 days quetiapine 50 mg PO BID 30 days temazepam 15 mg PO BEDTIME PRN 30 days tramadol 50 mg PO Q8H PRN 30 days HPI HPI Comments History of Present Illness Details The patient is a 73-year-old female presenting for a Medicare wellness visit and addressing ongoing issues with insomnia and depression. She has a history of insomnia that has persisted, at times requiring an additional dose of lorazepam. The patient experiences difficulty with sleep initiation and maintenance, reporting that she sometimes needs to take a second dose of lorazepam to manage her symptoms. The patient has a significant history of right hip fracture, which required surgical intervention in October [address] Leos. She currently participates in wound care for chronic pressure ulcers. The patient regularly visits a wound care clinic in [place] for treatment. Despite challenges, she demonstrates a strong desire for independence and attempts to perform exercises to maintain mobility despite using a wheelchair. She declines mammogram, bone density and colon cancer screening. In a wheelchair after her right fracture repair. Accompanied by MANAGER FOREIGN. Ppp handed to patient. [place] of care reviewed.- Pneumonia vaccine completed last year. - Tdap vaccine was administered in 2020; next due in 2030. - Regular wound care for chronic pressure ulcers. - Refused mammogram, colonoscopy, and bone density test. - Undergoing regular dental care. - Refrained from flu vaccination. - DNR on file and reviewed. [facility] Medical History (Updated 06/13/24 @ 13:51 by Aniyah Mcgregor MD) Pubic ramus fracture Moderate protein-calorie malnutrition Closed compression fracture of thoracic vertebra Aspiration pneumonia Closed fracture of right hip Stage 4 pressure ulcer Recurrent Clostridioides difficile diarrhea External hemorrhoids Epidermal inclusion cyst White coat syndrome with high blood pressure but without hypertension Dry eyes Hyponatremia Hypercalcemia Diarrhea Renal calculi Constipation by delayed colonic transit GERD (gastroesophageal reflux disease) UTI (urinary tract infection) Villous adenoma of colon Insomnia Raynauds disease Anxiety Surgical History (Updated 06/13/24 @ 10:40 by Aniyah Mcgregor MD) Hip fracture, right History of bronchoscopy History of tonsillectomy Family History Father Medical history unknown Mother Dementia Alzheimers disease Mental health disorder Brother Leukemia Sister Medical history unknown Social History Household Members: None Household Members Other:: longterm Housing: Apartment Housing Other:: [facility] prior to admission. Do you presently have visiting nurse or other home services: Yes (MANAGER [employer]) Alcohol intake: former Comment: pt bed/chair bound at baseline Patient Tobacco Use Status: Former Tobacco user Tobacco use type: Cigarette e-Cigarette/Vaping Use: Never Used Second Hand Smoke Exposure: No Advance Directives Date on File: 11/23/22 service: No Current occupational status: retired Cognitive needs: No Hearing needs: No Vision needs: Yes Questionnaire Medicare Wellness Checkup [age] What gender do you identify with?: female During the past 4 weeks, how much have you been bothered by emotional problems such as feeling anxious, depressed, irritable, sad or downhearted, and blue?: quite a bit During the past 4 weeks, has your physical & emotional health limited your social activities with family, friends, neighbors, or groups?: extremely During the past 4 weeks, how much bodily pain have you generally had?: moderate pain During the past 4 weeks, was someone available to help you if you needed & wanted help?: yes, as much as I wanted During the past 4 weeks, what was the hardest physical activity you could do for at least 2 minutes?: very heavy Can you get to places out of walking distance without help? (For eg., can you travel alone on buses, taxis or drive your car?): No Can you go shopping for groceries or clothes without someone's help?: No Can you prepare your own meals?: No Can you do your housework without help?: No Because of any health problems, do you need the help of another person with your personal care needs such as eating, bathing, dressing or getting around the house?: Yes Can you handle your own money without help?: Yes During the past 4 weeks, how would you rate your health in general?: fair During the past 4 weeks how have things been going for you?: good & bad parts about equal Are you having difficulties driving your car?: not applicable, I don't use a car Do you always fasten your seat belt when you are in a car?: yes, usually During past 4 weeks, have you been bothered by the following: never: Sexual problems?, Teeth or denture problems? and Problems using the telephone? and sometimes: Falling or dizzy when standing up, Trouble eating well? and Tiredness or fatigue? Have you fallen 2 or more times in the past year?: Yes Are you afraid of falling?: Yes Are you a smoker?: no During the past 4 weeks, how many drinks of wine, beer, or other alcoholic beverages did you have?: no alcohol at all Do you exercise for about 20 minutes 3 or more times a week?: yes, most of the time Have you been given information to help with the following?: yes: Hazards in your house that might hurt you? and yes: Keeping track of your medications? How often do you have trouble taking medicines the way you have been told to take them?: I always take medicine as prescribed How confident are you that you can control & manage most of your health problems?: not very confident What is your race?: White Mini Mental State Exam (MMSE) Orientation What is the (year) (season) (date) (day) (month)?: year, season, date, day and month Where are we (state) (county) (town or city) (hospital) (floor)?: state, county, town or city, hospital/clinic and floor Registration Name of 3 unrelated objects clearly and slowly, then ask patient to repeat all 3 of them. (1st repeat determines score. Make sure they can repeat all three): object 1, object 2 and object 3 Attention & Calculation (CHOOSE ONE) Spell WORLD backwards (DLROW): 4 letters Recall Ask patient to repeat the 3 items from question #3.: object 1, object 2 and object 3 Language Show patient a wristwatch & ask what it is. Repeat for pencil.: watch and pencil Ask the patient to repeat the phrase 'No ifs, ands, or buts' after you.: correct Ask the patient to 'take a piece of paper with their right hand' 'fold paper in half' 'place paper on floor': take paper in right hand, fold paper in half and place paper on floor Print the sentence 'CLOSE YOUR EYES' on a piece. If patient actually closes eyes then score.: followed written direction Give patient a blank piece of paper & ask to write a sentence. Score if it contains a noun & verb.: sentence contains subject and verb Ask patient to copy figure of intersecting pentagons exactly. Score if all 10 angles & 2 intersects are included.: all 10 angles present & 2 are intersected Score Score: 29 Activity of Daily Living Bathing - sponge bath, tub bath or shower: receives help in bathing more than one body part (or not bathed) Dressing - getting clothes from closets & drawers, including inner/outer garments & fasteners.: receives help getting clothes or getting dressed, or stays undressed Toileting - going to the 'toilet room' for urine/bowel elimination & cleaning self/arranging clothes: does not go to room termed toilet for elimination process Transfer: does not get out of bed Continence: supervision helps urination/bowel control; catheter use; incontinent Feeding: feeds self except getting help in cutting meat/buttering bread Total Score: 5 Information obtained from: patient Using telephone: independent Traveling: dependent Shopping: dependent Preparing meals: dependent Housework: dependent Taking medicine: needs assistance Managing money: independent PHQ-9 Over the last 2 weeks, how often have you been bothered by any of the following problems? 1. Little interest or pleasure in doing things: more than half the days 2. Feeling down, depressed, or hopeless: several days 3. Trouble falling or staying asleep, or sleeping too much: nearly every day 4. Feeling tired or having little energy: nearly every day 5. Poor appetite or overeating: several days 6. Feeling bad about yourself - or that you are a failure or have let yourself or your family down: several days 7. Trouble concentrating on things, such as reading the newspaper or watching television: not at all 8. Moving or speaking so slowly that other people could have noticed. Or the opposite - being so fidgety or restless that you have been moving around a lot more than usual: several days 9. Thoughts that you would be better off or of hurting yourself in some way: not at all Total score: 12 Depression Screening Interpretation: Positive Depression Screening Follow-up: Existing condition, In treatment and Follow-up Visit Requested Depression Screening Done: Yes 92539 - PHQ-9 Billing: Yes Source: Developed by Drs. Julian Mas, Karina Acevedo, Mook Hogue and colleagues, with an educational bernie from [employer]. Fall Risk Assessment Fall Risk Assessment Fall risk assessment: 1 Fall in past year Thrive Questionnaire Date Thrive assessed: 06/13/24 I am a: Patient What is your living situation today?: I have a steady place to live Within the past 12 months, did the food you bought not last and you didn't have the money to get more?: Never true Within the past 12 months, did you worry whether your food would run out before you got money to buy more?: Never true Do you have trouble paying for medicines?: No Do you have trouble getting transportation to medical appointments?: No Do you have trouble paying your heating and electricity bill?: No Do you have trouble taking care of your child, family member or friend?: No Do you have trouble with day-to-day activities such as bathing, preparing meals, shopping, managing finances, etc.?: No Are you currently unemployed and looking for a job?: No Are you interested in more education?: No Please select the resources that you would like help with: None Currently or been in a relationship where the following occur: No concerns reported THRIVE Score: 0 AUDIT C Alcohol Use Questionnaire (AUDIT-C) 1. How often do you have a drink containing alcohol?: Never Total Score: 0 Score Reviewed/Action Taken: No RACHEL-7 AMB Questionnaire RACHEL-7 Date RACHEL - 7 assessed: 06/13/24 Feeling nervous, anxious, or on edge: 1 = Several days Not being able to stop or control worryin = Not at all Worrying too much about different things: 1 = Several days Trouble relaxin = Not at all Being so restless that it is hard to sit still: 0 = Not at all Becoming easily annoyed or irritable: 0 = Not at all Feeling afraid as if something awful might happen: 0 = Not at all Total RACHEL-7 score (0-4 normal; 5-9 mild; 10-14 moderate; 15-21 severe): 2 Source: Developed by Drs. Julian Mas, Karina Acevedo, Mook Hogue and colleagues, with an educational bernie from [employer]. RACHEL-7 Assessment Billing RACHEL-7 Assessment Tool: RACHEL-7 Assessment 01465 Review of Systems Const All systems reviewed & are unremarkable except as noted in HPI and below Card Denies chest pain at rest, Denies chest pain with activity, Denies edema, Denies irregular heart rhythm, Denies claudication, Denies dyspnea, Denies dyspnea on exertion, Denies orthopnea, Denies paroxysmal nocturnal dyspnea and Denies slow heart rate Resp Denies cough, Denies dyspnea and Denies dyspnea on exertion Musc Reports abnormal gait and Reports back pain Skin/Breast Reports skin ulcer Neuro Reports abnormal gait Physical Exam Vital Signs: Last Vital Signs BP 112/70 06/13/24 10:17 Const Limitations: wheelchair Resp Effort & Inspection: normal respiratory effort Auscultation: clear to auscultation bilaterally Cardio Jugular venous distension: no JVD Rate: regular rate Rhythm: regular rhythm Heart sounds: S1 normal heart sound present and S2 normal heart sound present Office Procedures Flu Questionnaire Does the patient have a severe egg allergy?: No Immunizations Fluarix Triv [id number] (PF) 45 mcg (15 mcg x 3)/0.5 mL IM syringe Performing Provider: Aniyah Mcgregor MD [facility] Documented (not given) by: LONG Huggins on 06/13/24 10:53 Reason Not Given: Patient Refused Assessment & Plan Assessment & Plan (1) Encounter for Medicare annual wellness exam: Code(s): Z00.00 - Encounter for general adult medical examination without abnormal findings (2) Stage II pressure ulcer of sacral region: Code(s): L89.152 - Pressure ulcer of sacral region, stage 2 (3) Malnutrition: Code(s): E46 - Unspecified protein-calorie malnutrition (4) Mild recurrent major depression: Code(s): F33.0 - Major depressive disorder, recurrent, mild Plan - Increase mirtazapine dosage to help with insomnia and depression management. - Continue atorvastatin for cholesterol management, famotidine for heartburn. - Regular wound care continues; reassessment of treatment effectiveness ongoing. - Consider use of pyrwick for managing nighttime moisture due to incontinence issues. Patient was informed and verbally consented to the use of an ambient scribe for clinic note documentation during this visit. During the visit, we discussed the management of insomnia and depression, focusing on the potential benefits of increasing the mirtazapine dose. The patient was informed about possible side effects and the need for monitoring her response to the increased dosage. We reviewed her history, current medication regimen including atorvastatin for cholesterol and famotidine for heartburn, and agreed upon continued wound care with weekly visits to the clinic. We also addressed her concerns regarding potential incontinence solutions such as pyrwick. She consented to trying two doses of mirtazapine as a trial for her insomnia. We discussed the importance of regular follow-up to monitor her symptoms and adjustments to her treatment plan as necessary. Additionally, we reviewed the details of her DNR and ensured accuracy in her medical records. Orders: Orders Influenza [id number] Immunization Today Z23 - Encounter for immunization Medications: New mirtazapine 15 mg PO BEDTIME 90 days 90 tabs 1RF Discontinued mirtazapine Discontinued Reason: Order 7.5 mg PO DAILY 30 days 30 tabs 5RF Patient Instructions: - Take the increased dosage of mirtazapine as prescribed to help with sleep. - Continue current medication regimen, monitor any side effects. - Attend regular wound care appointments. - Consider trying alternative incontinence management solutions such as pyrwick if necessary. - Monitor mood and sleep patterns, and report any drastic changes or concerns. - Maintain communication with healthcare proxy and ensure their details are up to date. - Follow a healthy lifestyle, staying as active as safely possible, and monitor nutritional intake. Quality Reporting (2019) Fall Risk Screening ([facility] 139) Fall risk assessment: 1 Fall in past year Depression/Bipolar (159/160/161/177) PHQ-9: Total score: 12 Coding Level of Care Code Medicare Subsequent (G0439) Est Pt Level 3 (99411) Diagnoses Encounter for Medicare annual wellness exam Z00.00 Stage II pressure ulcer of sacral region L89.152 Malnutrition E46 Mild recurrent major depression F33.0 CPT Codes Advance Care Planning - Advance Care Planning discussion: On file, no changes ([id number]) Additional Codes RACHEL-7 Assessment Billing - RACHEL-7 Assessment Tool: RACHEL-7 Assessment 20917 ([id number]) PHQ-9 - 46059 - PHQ-9 Billing: Yes ([id number]) Time Spent (min) 35 Advance Care Planning Advance Care Planning discussion: On file, no changes Date of discussion: 06/13/24 Forms completed: Comfort care/DNR Actual minutes spent: 1
--- OUTSIDE RECORDS SUMMARY | 2024-06-13 10:46 | XMS_ITS | Clinical Summary ---
Author Organization Unknown Care Team Providers Care Streaming Media Specialist Name Role Phone JUAN M VELASQUEZ MD, SHALONDA Unavailable Unavailable MARTI RN, KETTY Unavailable Unavailable DELICIA HOOK PULLER, LORETO Unavailable Unavail able MIKE PT, CELSO Unavailable Unavailable CHON COXN, EDER Unavailable Unavailable PRATEEK RN, ERIC Unavailable Unavailable Payers Payer Name Policy Type Policy Number Effective Date Expira tion Date MEDICARE - 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) DRUG THERAPY Active 06-07 00:00: 00 [...] 08-01 00:00: 00 07-18 23:59 :00 No [id number] Per instruc tions AT BEDTIME Per instructio ns AT BEDTIME (route: ophthalmic (eye)) Med Classific ation: Ophthalmi c Agents metoprolol succinate ER 25 mg tablet,exte nded release 24 hr 07-24 00:00: 00 07-18 23:59 :00 No [id number] 1 tablet DAILY 1 tablet DAILY (route: oral) Med Classific ation: Cardiovas cular Therapy Agents pantoprazol e 40 mg tablet,cesar yed release 07-24 00:00: 00 07-18 23:59 :00 No [id number] 1 tablet DAILY 1 tablet DAILY (route: oral) Med Classific ation: Gastroint estinal Therapy Agents quetiapine 50 mg tablet 07-24 00:00: 00 09-23 23:59 :00 No [id number] 1 tablet BEDTIME 1 tablet BEDTIME (route: oral) Med Classific ation: Central Nervous System Agents famotidine 20 mg tablet 2-15 00:00: 00 07-18 23:59 :00 No [id number] 1 tablet 2 TIMES DAILY 1 tablet 2 TIMES DAILY (route: oral) Med Classific ation: Gastroint estinal Therapy Agents lorazepam 1 mg tablet 07-11 00:00: 00 07-18 23:59 :00 No [id number] Per instruc tions TWICE A DAY NEEDED Per instructio ns TWICE A DAY NEEDED (route: oral) Med Classific ation: Central Nervous System Agents temazepam 15 mg capsule 07-11 00:00: 00 07-18 23:59 :00 No [id number] Per instruc tions EVERY DAY AT BEDTIME NEEDED Per instructio ns EVERY DAY AT BEDTIME NEEDED (route: oral) Med Classific ation: Central Nervous System Agents doxycycline hyclate 50 mg capsule -31 00:00: 00 07-17 23:59 :00 No [id number] Per instruc tions TWICE A DAY FOR 10 DAYS Per instructio ns TWICE A DAY FOR 10 DAYS (route: oral) Med Classific ation: Anti-Infe ctive Agents biotin 1 mg tablet 08-04 00:00: 00 07-18 23:59 :00 No [id number] 1 tablet EVERY AM 1 tablet EVERY AM (route: oral) Med Classific ation: Electroly te Balance-N utritiona l Products CoQ-10 100 mg capsule 08-04 00:00: 00 07-18 23:59 :00 No [id number] 1 capsule EVERY AM 1 capsule EVERY AM (route: oral) Med Classific ation: Alternati ve Therapy Vitamin C 100 mg tablet 08-04 00:00: 00 07-18 23:59 :00 No [id number] 1 tablet 2 TIMES DAILY 1 tablet 2 TIMES DAILY (route: oral) Med Classific ation: Electroly te Balance-N utritiona l Products bisacodyl 10 mg rectal suppository 2023-0 3-07 00:00: 00 07-18 23:59 :00 No [id number] constipatio n 1 supposi tory, rectal NEEDED 1 suppositor y, rectal NEEDED (route: rectal) Med Classific ation: Gastroint estinal Therapy Agents doxycycline hyclate 50 mg capsule 4-19 00:00: 00 11-05 23:59 :00 No [id number] 1 capsule 2 TIMES DAILY 1 capsule 2 TIMES DAILY (route: oral) Med Classific ation: Anti-Infe ctive Agents quetiapine 50 mg tablet -19 00:00: 00 07-18 23:59 :00 No [id number] 1 tablet 2 TIMES DAILY 1 tablet 2 TIMES DAILY (route: oral) Med Classific ation: Central Nervous System Agents Senna Lax 8.6 mg tablet 09-23 00:00: 00 07-18 23:59 :00 No [id number] 1 tablet DIRECTED 1 tablet DIRECTED (route: oral) Med Classific ation: Gastroint estinal Therapy Agents doxycycline hyclate 50 mg capsule 11-05 00:00: 00 07-18 23:59 :00 No [id number] 1 capsule 2 TIMES DAILY 1 capsule 2 TIMES DAILY (route: oral) Med Classific ation: Anti-Infe ctive Agents levofloxaci n 500 mg tablet -12 00:00: 00 11-21 23:59 :00 No [id number] 1 tablet DAILY 1 tablet DAILY (route: oral) Med Classific ation: Anti-Infe ctive Agents phenazopyri dine 100 mg tablet 6-13 00:00: 00 07-18 23:59 :00 No [id number] 1 tablet 3 TIMES DAILY 1 tablet 3 TIMES DAILY (route: oral) Med Classific ation: Genitouri nary Therapy Macrodantin 100 mg capsule 9-14 00:00: 00 02-25 23:59 :00 No [id number] 100 mg 2 TIMES DAILY 100 mg 2 TIMES DAILY (route: oral) Med Classific ation: Genitouri nary Therapy atorvastati n 40 mg tablet 1-18 00:00: 00 Yes [id number] Per instruc tions EVERYDAY AT BEDTIME Per instructio ns EVERYDAY AT BEDTIME (route: oral) Med Classific ation: Cardiovas cular Therapy Agents lorazepam 1 mg tablet 08-11 00:00: 00 Yes [id number] Per instruc tions TWICE A DAY NEEDED Per instructio ns TWICE A DAY NEEDED (route: oral) Med Classific ation: Central Nervous System Agents temazepam 15 mg capsule 08-11 00:00: 00 Yes [id number] Per instruc tions AT BEDTIME NEEDED Per instructio ns AT BEDTIME NEEDED (route: oral) Med Classific ation: Central Nervous System Agents metoprolol succinate ER 25 mg tablet,exte nded release 24 hr 08-08 00:00: 00 03-03 23:59 :00 No [id number] Per instruc tions EVERY DAY Per instructio ns EVERY DAY (route: oral) Med Classific ation: Cardiovas cular Therapy Agents pantoprazol e 40 mg tablet,cesar yed release 08-08 00:00: 00 Yes [id number] Per instruc tions EVERY DAY Per instructio ns EVERY DAY (route: oral) Med Classific ation: Gastroint estinal Therapy Agents quetiapine 50 mg tablet 08-08 00:00: 00 10-06 00:00 :00 No [id number] Per instruc tions TWICE A DAY FOR 30 DAYS Per instructio ns TWICE A DAY FOR 30 DAYS (route: oral) Med Classific ation: Central Nervous System Agents doxycycline hyclate 100 mg tablet 10-03 00:00: 00 10-08 23:59 :00 No [id number] 1 tablet 2 TIMES DAILY 1 tablet 2 TIMES DAILY (route: oral) Med Classific ation: Anti-Infe ctive Agents famotidine 20 mg tablet 10-06 00:00: 00 Yes [id number] 1 tablet 2 TIMES DAILY 1 tablet 2 TIMES DAILY (route: oral) Med Classific ation: Gastroint estinal Therapy Agents Hemorrhoida l 0.25 %-3 %-12 % cream 10-06 00:00: 00 Yes [id number] Per instruc tions DAILY Per instructio ns DAILY (route: rectal) Med Classific ation: Anorectal Preparati ons quetiapine 25 mg tablet 10-06 00:00: 00 Yes [id number] Per instruc tions 2 TIMES DAILY Per instructio ns 2 TIMES DAILY (route: oral) Med Classific ation: Central Nervous System Agents tramadol 50 mg tablet 10-06 00:00: 00 02-21 23:59 :00 No [id number] 1 tablet EVERY 6 HOURS 1 tablet EVERY 6 HOURS (route: oral) Med Classific ation: Analgesic , Anti-infl ammatory or Antipyret ic lorazepam 1 mg tablet 12-19 00:00: 00 12-27 00:00 :00 No [id number] Per instruc tions Per instructio ns (route: oral) Med Classific ation: Central Nervous System Agents chlorhexidi ne gluconate 0.12 % mouthwash 12-12 00:00: 00 12-27 00:00 :00 No [id number] Per instruc tions RINSE WITH 1/2 OZ FOR 30 SECONDS TWICE DAILY Per instructio ns RINSE WITH 1/2 OZ FOR 30 SECONDS TWICE DAILY (route: mucous membrane) Med Classific ation: Mouth-Thr oat-Denta l - Preparati ons mirtazapine 7.5 mg tablet 12-06 00:00: 00 Yes [id number] 1 tablet BEDTIME 1 tablet BEDTIME (route: oral) Med Classific ation: Central Nervous System Agents atorvastati n 40 mg tablet 12-04 00:00: 00 12-27 00:00 :00 No [id number] Per instruc tions Per instructio ns (route: oral) Med Classific ation: Cardiovas cular Therapy Agents pantoprazol e 40 mg tablet,cesar yed release 12-01 00:00: 00 12-27 00:00 :00 No [id number] Per instruc tions Per instructio ns (route: oral) Med Classific ation: Gastroint estinal Therapy Agents famotidine 20 mg tablet 11-29 00:00: 00 12-27 00:00 :00 No [id number] Per instruc tions Per instructio ns (route: oral) Med Classific ation: Gastroint estinal Therapy Agents metoprolol succinate ER 25 mg tablet,exte nded release 24 hr 11-29 00:00: 00 12-27 00:00 :00 No [id number] Per instruc tions Per instructio ns (route: oral) Med Classific ation: Cardiovas cular Therapy Agents acetaminoph en 325 mg tablet 12-27 00:00: 00 Yes [id number] 2 tablet EVERY 6 HOURS 2 tablet EVERY 6 HOURS (route: oral) Med Classific ation: Analgesic , Anti-infl ammatory or Antipyret ic Culturelle 10 billion cell capsule 12-27 00:00: 00 Yes [id number] 1 capsule DAILY 1 capsule DAILY (route: oral) Med Classific ation: Gastroint estinal Therapy Agents oxycodone 5 mg tablet 12-27 00:00: 00 02-21 23:59 :00 No [id number] 1 tablet EVERY 6 HOURS 1 tablet EVERY 6 HOURS (route: oral) Med Classific ation: Analgesic , Anti-infl ammatory or Antipyret ic Seroquel 25 mg tablet 12-27 00:00: 00 Yes [id number] 1 tablet BEDTIME 1 tablet BEDTIME (route: oral) Med Classific ation: Central Nervous System Agents doxycycline hyclate 100 mg capsule 01-24 00:00: 00 02-21 23:59 :00 No [id number] 1 capsule 2 TIMES DAILY 1 capsule 2 TIMES DAILY (route: oral) Med Classific ation: Anti-Infe ctive Agents metoprolol succinate ER 25 mg tablet,exte nded release 24 hr 03-02 00:00: 00 Yes [id number] .5 tablet DAILY .5 tablet DAILY (route: oral) Med Classific ation: Cardiovas cular Therapy Agents tramadol 50 mg tablet 03-02 00:00: 00 Yes [id number] 1 tablet EVERY 8 HOURS 1 tablet [...] FOR FALL AND INJURY INCLUDING PARTICIPATION IN [facility] BALANCE SPECIALTY PROGRAM PHYSICAL THERAPY [...] IN BILAT FEET. INFORMED PATIENT AND CG STOCK REPAIRER ADI THAT THIS THERAPIST WILL EXTEND PHYSICAL THERAPY HOWEVER PATIENT WILL NOT HAVE IMPROVEMENT WITHOUT STOCK REPAIRER ADI PRESENT, THIS THERAPIST ARRANGED 3 VISITS [...] THAT NEXT VISITS PHYSICAL THERAPY VISITS REQUIRE STOCK REPAIRER TO BE PRESENT, HOWEVER NO REPLY FROM ADI. BEDRAIL THAT PATIENT COULD USE TO FACILIATE SITTING ON EDGE OF BED, MAXIMIZING R HEEL FLAT NOT AVAIL. THIS THERAPIST CALLED [facility] MULTIPLE TIMES, HOWEVER NO BED RAIL ABAIL. SPOKE WITH MARIA ELENA NURSE NAVIGATOR OF [facility] OFFICE, MARIA ELENA FAXED OVER [employer] REQUIRED PAPERWORK TO KETTY HOLGUIN OF [employer]. INFORMED MARIA ELENA ABOUT PATIENT'S HIGH PAIN [...] FOR FALL AND INJURY INCLUDING PARTICIPATION IN [facility] BALANCE SPECIALTY PROGRAM PHYSICAL THERAPY [...] IN BILAT FEET. INFORMED PATIENT AND CG STOCK REPAIRER ADI THAT THIS THERAPIST WILL EXTEND PHYSICAL THERAPY HOWEVER PATIENT WILL NOT HAVE IMPROVEMENT WITHOUT STOCK REPAIRER ADI PRESENT, THIS THERAPIST ARRANGED 3 VISITS [...] THAT NEXT VISITS PHYSICAL THERAPY VISITS REQUIRE STOCK REPAIRER TO BE PRESENT, HOWEVER NO REPLY FROM ADI. BEDRAIL THAT PATIENT COULD USE TO FACILIATE SITTING ON EDGE OF BED, MAXIMIZING R HEEL FLAT NOT AVAIL. THIS THERAPIST CALLED [facility] MULTIPLE TIMES, HOWEVER NO BED RAIL ABAIL. SPOKE WITH MARIA ELENA NURSE NAVIGATOR OF [facility] OFFICE, MARIA ELENA FAXED OVER [employer] REQUIRED PAPERWORK [facility] [employer]. INFORMED MARIA ELENA ABOUT PATIENT'S HIGH PAIN [...] SUPERVISION (SOC: VERBAL CUES). GOAL MET.] Goal 2024-02-22 Patient Goal - YUDY ANDERSON INDEPENDENT Goal 2024-03-03 Patient Goal - YUDY ANDERSON INDEPENDENT Goal 2024-04-06 Patient Goal - TO GET OUT OF BED EASIER. Goal Provider Goal - A PLAN OF CARE WILL BE ESTABLISHED THAT MEETS PATIENT'S INTERMEDIATE NEEDS AND INCLUDES PATIENT GOAL FOR HOME [...] End Date/Time Encounter Type Admission Type Attending [facility] Care Department Encounter ID Discharge Date Discharge Status Discharge Condition Discharge Reason Percent Goals Met 2023-12-28 00:00:00 2024-04-06 00:00:00 Outpatient RECERTIFIC ATION ERIC CHANDRA [facility] [id number] 2024-04-06 00:00:00 DISCHARGED /TRANSFERR ED TO A SHORT-TERM [facility] FOR INPATIENT CARE REMAINS INPATIENT AT TIME OF DISCHARGE ADMITTED TO HOSPITAL 17.39
== END 2024-06-13 10:51 | disposition home or self-care (01) ==
PROVIDERS: PCP Internal Medicine; Visit Provider Internal Medicine
DX: Z00.00 Encounter for general adult medical examination without abnormal findings (principal); L89.152 Pressure ulcer of sacral region, stage 2; E46 Unspecified protein-calorie malnutrition; F33.0 Major depressive disorder, recurrent, mild

== ENCOUNTER → 2024-06-13 10:09 | Outpatient (BNVA) | payer MEDICARE, MEDICAID, SELFPAY | PROVIDERS: PCP Internal Medicine; Visit Provider Internal Medicine | DX: Z00.00 Encounter for general adult medical examination without abnormal findings (principal); G47.00 Insomnia, unspecified; L89.152 Pressure ulcer of sacral region, stage 2; F33.0 Major depressive disorder, recurrent, mild | CPT/HCPCS: 96127; 99212 ==

== ENCOUNTER 2024-10-05 10:53 | Outpatient (REF) | payer MEDICARE, MEDICAID, SELFPAY ==
[2024-10-05 11:07] LABS: Appearance Urine Cloudy; Color Urine Yellow; Glucose Urine UA Negative (Negative); Leukocyte Esterase Urine Large (3+) (Negative); Nitrite Urine Positive (Negative); UMIC TRIGGER UA YES; Urine Blood Negative (Negative); Urine Ketones Negative (Negative); Urine Protein Trace mg/dL (Neg-Trace)
[2024-10-05 11:29] LABS: Bacteria Urine 4+ (None Seen); Hyaline Casts Urine 0-2 /LPF (0-2); Squamous Epithelial Cell Urine 0-2 /HPF (0-2); WBC Urine >50 /HPF (0-5)
--- OUTSIDE RECORDS SUMMARY | 2024-10-05 12:34 | XMS_ITS | Data Portability ---
Author Organization [facility], Main Office Address [address] [facility], [address] [place] [address] Care Team Providers Care Stereotyper Helper Name Role Phone SHALONDA MARY Primary Care Provider [facility] - 2ND FLOOR OTHER Assessment No assessment recorded. Plan of Treatment Reminders Order Date Submit Date Provider Last Modified By Organization Details Last Modified Time Details Appointments None recorded. Lab None recorded. Referral None recorded. Procedures None recorded. Surgeries None recorded. Imaging None recorded. Medication Orders tramadol 50 mg tablet [address] [place] [address] , [address] [place] [address], [address], 4 19:48:38 Patient TargetsNo targets recorded. Patient InstructionsNo instructions recorded. Reason for Referral None Reported. Problems Name Problem SNOMED Code Status Onset Date Resolution Date Notes Provider Name and Address Organization Details Recorded Time Falls 646129341 Active 2022 HANSEL DORANTES NP [address] [facility], [address], [place], [address], [facility] 3 12:56:45 Fracture of pelvis 98405187 Active 2022 HANSEL DORANTES NP [address] [facility], [address], [place], [address], [facility] 3 12:56:56 Fracture of foot 03451172 Active 2022 HANSEL DORANTES NP [address] [facility], [address], [place], [address], [facility] 3 12:57:14 Retention of urine 857949140 Active 2022 HANSEL DORANTES NP [address], [address], [place], [address], [facility] 3 12:57:25 Gastroesoph ageal reflux disease without esophagitis 225650648 Active 2022 HANSEL DORANTES NP [address], [address], [place], [address], [facility] 3 13:02:50 Anxiety 03549699 Active 2022 HANSEL DORANTES NP [address], [address], [place], [address], [facility] 3 13:03:02 Insomnia 458373191 Active 2022 HANSEL DORANTES NP [address] [facility], [address], [place], [address], [facility] 3 13:03:10 Constipatio n 46820233 Active 2022 HANSEL DORANTES NP [address] [facility], [address], [place], [address], [facility] 3 13:04:29 Hypokalemia 84448064 Active 2022 HANSEL DORANTES NP [address] [facility], [address], [place], [address], [facility] 3 13:10:05 Fracture of phalanx of foot 54429158 Active 2022 Shereen Hilario MD [address] [facility], [address], [place], [address], [facility] 3 22:56:52 Hypercalcem ia 66329120 Active 2022 Shereen Hilario MD [address], [place], [address], [employer] [facility] 3 23:18:36 Acute urinary tract infection 231570784 Active 2022 HANSEL DORANTES NP [address], [place], [address], [facility] 3 11:01:09 Metabolic encephalopa thy 30557698 Active 2023 Britany Dunbar NP [address] [facility], [address], [place], [address], [facility] 4 12:40:13 Folic acid deficiency 026516160 Active 2023 Britany Dunbar NP [address] [facility], [address], [place], [address], [facility] 4 12:40:49 Adult failure to thrive syndrome 286864318 Active 2023 Shereen Hilario MD [address] [facility], [address], [place], [address], [facility] 4 01:57:58 Compression fracture of thoracic vertebra 9258906730111 Active 2023 Shereen Hilario MD [address] [facility], [address], [place], [address], [facility] 4 01:58:35 Hemorrhoids 52106870 Active 2023 Britany Dunbar NP [address] [facility], [address], [place], [address], [facility] 4 14:32:59 Problem Notes None recorded. Medical Equipment None Reported. Allergies No known drug allergies Medications Name Sig Start Date Stop Date Status Note LastModified by Organization Details LastModified Time tramadol 50 mg tablet Take 1 tablet twice a day by oral route as needed. active Not Available Not Available Not Avai lable lorazepam 0.5 mg tablet Take 2 tablets twice a day by oral route as needed. 024 active Not Available Not Available Not Avai lable lorazepam 1 mg tablet 1 mg po bid prn anxiety active Not Available Not Available Not Avai lable Vitals Date Recorded Body height Body mass index (BMI) Body weight Heart rate Respiratory rate Body temperature Oxygen saturation Oxygen saturation in Arterial blood by Pulse oximetry Systolic blood pressure Diastolic blood pressure Provider Name and Address Organization Details Last Updated DateTime 4 152.4 cm 16 kg/m2 24479.8 6 g 76 /min 18 /min 97.6 [degF] 96 % 96 % 124 mm[Hg] 68 mm[Hg] Britany Dunbar NP [address], [place], [address], [facility] 4 12:05:52 Date Recorded Body height Body mass index (BMI) Body weight Heart rate Respiratory rate Body temperature Oxygen saturation Oxygen saturation in Arterial blood by Pulse oximetry Systolic blood pressure Diastolic blood pressure Provider Name and Address Organization Details Last Updated DateTime 4 152.4 cm 16.1 kg/m2 85122.7 3 g 82 /min 18 /min 98.6 [degF] 98 % 98 % 124 mm[Hg] 68 mm[Hg] Shereen Hilario MD [address], [place], [address], [facility] 4 21:23:27 Date Recorded Body height Body weight Body mass index (BMI) Heart rate Respiratory rate Body temperature Oxygen saturation Oxygen saturation in Arterial blood by Pulse oximetry Systolic blood pressure Diastolic blood pressure Provider Name and Address Organization Details Last Updated DateTime 4 152.4 cm 61495.7 3 g 16.1 kg/m2 80 /min 17 /min 97.9 [degF] 97 % 97 % 118 mm[Hg] 70 mm[Hg] Britany Dunbar NP [address], [place], [address], [facility] 4 08:20:23 Date Recorded Body height Body weight Body mass index (BMI) Heart rate Respiratory rate Body temperature Oxygen saturation Oxygen saturation in Arterial blood by Pulse oximetry Systolic blood pressure Diastolic blood pressure Provider Name and Address Organization Details Last Updated DateTime 4 152.4 cm 46630.7 3 g 16.1 kg/m2 77 /min 18 /min 98.1 [degF] 97 % 97 % 120 mm[Hg] 76 mm[Hg] Britany Dunbar NP [address], [place], [address], [facility] 4 14:03:47 Date Recorded Body height Body weight Body mass index (BMI) Heart rate Respiratory rate Body temperature Oxygen saturation Oxygen saturation in Arterial blood by Pulse oximetry Systolic blood pressure Diastolic blood pressure Provider Name and Address Organization Details Last Updated DateTime 4 152.4 cm 11607.5 7 g 16 kg/m2 70 /min 18 /min 98.2 [degF] 97 % 97 % 120 mm[Hg] 76 mm[Hg] Britany Dunbar NP [address] [facility], [address], [place], [address], [facility] 4 16:08:36 Social History Question Answer Notes LastModified by Organizat ion Details LastModified Time Tobacco Smoking Status Former Smoker HANSEL DORANTES NP [address] [facility], [address], [place], [address], [facility] 08/26/2022 12:45:30 Do You Have An Advance Directive? Yes Information not available 08/26/2022 What Is Your Level Of Alcohol Consumption? None Information not available 08/26/2022 What Is Your Code Status? DNR/DNI Okay To Transfer To [facility] No Ivf, Art Nutrition, Or Dialysis Information not available 08/25/2023 Where Do You Live? Apartment Lives Home Alone, No Stairs Information not available 08/28/2022 Legal Guardian? No Informati on not available 08/28/2022 Do You Have A Medical Power Of Title I Assistant? Yes Information not available 08/28/2022 What Was The Date Of Your Most Recent Tobacco Screening? 08/25/2023 Information not available 08/25/2023 Do You Have An Out Of Hospital DNR? Yes Information not available 08/28/2022 What Is Your Relationship Status? Information not available 08/28/2022 Do You Use Any Illicit Or Recreational Drugs? No Information not available 08/26/2022 Has Tobacco Cessation Counseling Been Provided? No N/a As Pt No Longer Smokes Information not available 08/28/2022 Do You Or Have You Ever Used Any Other Forms Of Tobacco Or Nicotine? No Information not available 08/28/2022 Sex: Female Functional Status None recorded. Mental Status None recorded. Family History Nothing Reported Notes:mother-dementia, di sorder brother- , leukemia Medical History No medical history recorded. Gynecological HistoryNo gynecological history recorded. Obstetrics History GPAL:G 0 P 0 0 0 0 Immunizations Vaccine Type Date Status Note Provider Nam e and Address Organization Details Recorded Time Td(adult) unspecified formulation 1 completed [facility] 08/11/2023 15:56:45 Pneumococcal conjugate PCV20, polysaccharide [id number] conjugate, adjuvant, PF 3 completed [facility] 08/11/2023 15:57:18 SARS-COV-2 (COVID-19) vaccine, UNSPECIFIED 1 completed [facility] 08/11/2023 15:58:11 SARS-COV-2 (COVID-19) vaccine, UNSPECIFIED 2 completed [facility] 08/11/2023 15:58:19 SARS-COV-2 (COVID-19) vaccine, UNSPECIFIED 2 completed [facility] 08/11/2023 15:58:32 Past Encounters Encounter ID Performer Location Encounter Start Date Encounter Closed Date Diagnosis/Indication Diagnosis SNOMED-CT Code Diagnosis ICD10 Code Diagnosis Note [id number] JEREMY KUNZ MICHELLE [address] [place] [address] [facility] [place] [address] 08/26/2022 10:52:45 08/28/2022 16:11:11 Fracture of pelvis 01748535 S32.9XXA PT OT eval and treatoxyco done 5 mg q4hr prn Retention of urine 32533 4002 R33.9 mcdonald cathflomax 0.4 mg hsdoxycycl ine 50 mg bid, no end date Anxiety 53486993 F41.9 ativan 1 mg bid prn to 4/3seroque l 50 mg bid Gastroesop hageal reflux disease without esophagitis 954772775 K21.9 pepcid 20 mg bidprotoni x 40 mg daily Insomnia 050124491 G47.0 0 temazapam 15 mg hs prn Falls 827461256 R29.6 PT OT eval and treatfall precaution sfrequent safety checks Constipation 89838191 K5 9.00 miralax dailycolac e daily Hypokalemia 90070830 E87 .6 monitor labspotass ium/bicarb 25 meq bid MD CHERYL Quesada [address] [place] [address] rd [place] [address] 08/28/2022 18:30:09 08/31/2022 14:39:30 Fracture of pelvis 74297835 S32.9XXD Very deconditio irish and difficulty moving due to pain.Archie nue oxycodone 5 mg q 4 hrs prn and APAP 650 mg q 6 hrs prn.Needs PT/OT for strengthen ing, balance, gait training, safety and function.C ontinue fall precaution s.Monitor for safety.F/U with ortho as planned Retention of urine 42775 4002 R33.8 Continue mcdonald cath until pt. is more mobile.Con tinue tamsulosin 0.4 mg qd and doxycyclin e 50 mg BID for UTI prophylaxi s.Plan voiding trial for when pt able to ambulate independen tly. Anxiety 21030108 F41.1 Mood good tonight.Co ntinue escitalopr am 5 mg qd, seroquel 50 mg BID, hydroxyzin e 15 mg qhs, temazepam 15 mg qhs prn, and lorazepam 0.5 mg BID prn.Monito r mood.Psych consult prn. Gastroesop hageal reflux disease without esophagitis 175386709 K21.9 Continue famotidine 20 mg BID and pantoprazo le 40 mg qd.Monitor sxs. Insomnia 048085264 G47.0 0 Meds as above.Becca tor sleep patterns. Falls 719850230 R29.6 PT/OT as above. Constipation 25404715 K5 9.09 Continue lactulose 30 ml qd, miralax 17 gms qd, and colace 100 mg qd.Use bowel protocol prn.Monito r bowel function. Hypokalemia 39095217 E87 .6 Continue K+ as above.Becca tor labs. Fracture o f phalanx of foot 69528224 S92.592D Continue to wear boot.Ambul ate as tolerated. PT/OT as above.F/U with ortho as planned. Renal tubu lar acidosis 9745067 N25.89 Continue potassium bicarb 25 meq BID.Monito r labs.F/u with renal. 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 Villous ad enomatous polyp of colon 362672585 K63.5 Hx of precancero us polyps.Pt doesn't plan on doing f/u colonoscop ies.Monito r bowel function. Hypercalcemia 64627406 E 83.52 PTH WNL in 09/2021Moni tor Anemia 329451235 D64.89 With marked drop in hgb since initial fall. GI consult inpt recommende d colonoscop y, but pt refuses. She says that even if she had colon CA she wouldn't do anything about it.It seems more likely that drop is due to bleeding from fx.Continu e FeSO4 325 mg qd.Monitor hgb and transfuse for hgb <7 [id number] JEREMY KUNZ [address] [place] [address] 09/02/2022 12:27:02 09/04/2022 15:30:57 Fracture of phalanx of foot 35755555 S92.592D Ambulate as tolerated. PT/OT as above.F/U with ortho as planned. Fracture of pelvis 79938 009 S32.9XXD PT OT eval and treatoxyco done 5 mg q4hr prn Constipation 08735394 K5 9.09 miralax dailycolac e dailylactu lose daily [id number] [facility] [address] [place] [address] 09/04/2022 10:58:48 09/08/2022 12:30:49 Fracture of pelvis 99486182 S32.9XXD PT OT eval and treatoxyco done 5 mg q4hr prnbowel protocol Fracture o f phalanx of foot 04934679 S92.592D Ambulate as tolerated. PT/OT as above.F/U with ortho as planned. Retention of urine 25725 4002 R33.8 mcdonald cath-remov ed, voiding wellflomax 0.4 mg hs Acute urin andrew tract infection 904994242 N39.0 levofloxin 250 mg daily to [id number] HANSEL DORANTES NP CHERYL MARTINEZ [address] [place] [address] 09/07/2022 14:40:54 09/09/2022 12:32:56 Fracture of pelvis 42459274 S32.9XXD PT OT eval and treatoxyco done 5 mg q4hr prnbowel protocol Fracture of foot 4874463 5 S92.902D PT OT eval and treatoxyco done 5 mg q4hr prnbowel protocol Fracture o f phalanx of foot 70267178 S92.592D Ambulate as tolerated. PT/OT as above.F/U with ortho as planned. [id number] HANSEL DORANTES NP [address] [address] 09/10/2022 10:30:47 09/16/2022 15:52:39 Anxiety 22088495 F41.1 ativan 1 mg bid prnseroque l 50 mg bidAIMS 0psych prn Insomnia 759193730 G47.0 0 temazapam 15 mg hs prn Fracture of pelvis 42116 009 S32.9XXD PT OT eval and treatoxyco done 5 mg q4hr prnbowel protocol [id number] HANSEL DORANTES NP [address] [address] 09/16/2022 12:50:19 09/22/2022 11:59:18 Fracture of pelvis 47365474 S32.9XXD PT OT eval and treatoxyco done 5 mg q6hr prnbowel protocol Anxiety 83441125 F41.1 ativan 1 mg bid prnseroque l 50 mg bidAIMS 0psych prn [id number] HANSEL DORANTES JEREMY [address] [address] 09/18/2022 12:19:47 09/22/2022 12:53:50 Fracture of pelvis 20031016 S32.9XXA PT OT eval and treatoxyco done 5 mg q6hr prnadvil 400 mg q8hr prn Retention of urine 36430 4002 R33.9 mcdonald cath-remov ed voiding wellflomax 0.4 mg hs Anxiety 98880343 F41.9 ativan 1 mg bid prn to 4/20seroqu el 50 mg bidlexapro 10 mg dailyhydro xyzine 25 mg hspsych prn Gastroesop hageal reflux disease without esophagitis 262164636 K21.9 pepcid 20 mg bidprotoni x 40 mg daily Insomnia 950382046 G47.0 0 temazapam 15 mg hs prn Falls 172338520 R29.6 PT OT eval and treatfall precaution sfrequent safety checks Constipation 37987489 K5 9.00 miralax dailycolac e daily Hypokalemia 85444384 E87 .6 monitor labspotass ium/bicarb 25 meq bid [id number] HANSEL DORANTES NP [address] [address] 09/21/2022 11:40:35 09/24/2022 15:19:51 Fracture of pelvis 51943932 S32.9XXA PT OT eval and treatoxyco done 5 mg q6hr prnadvil 400 mg q8hr prn Retention of urine 65851 4002 R33.9 flomax 0.4 mg hs Anxiety 15946539 F41.9 ativan 1 mg bid prn to 4/20seroqu el 50 mg bidlexapro 10 mg dailyhydro xyzine 25 mg hspsych prn Gastroesop hageal reflux disease without esophagitis 712014455 K21.9 pepcid 20 mg bidprotoni x 40 mg daily Insomnia 719204008 G47.0 0 temazapam 15 mg hs prn Falls 303946555 R29.6 PT OT eval and treatfall precaution sfrequent safety checks Constipation 92210776 K5 9.00 miralax dailycolac e daily Hypokalemia 62726204 E87 .6 monitor labspotass ium/bicarb 25 meq bid [id number] Britany Dunbar NP [facility] [address] [place] [address] 08/25/2023 12:05:06 08/31/2023 10:07:00 Fracture of pelvis 53780900 S32.9XXA hx ofadvil 400 mg q8hr prnmonitor Anxiety 56791228 F41.9 contativan 1 mg bid prn x 14 dyas and reeval ( on at home)seroq uel 25 mg bidpsych prn Gastroesop hageal reflux disease without esophagitis 687577077 K21.9 pepcid 20 mg bidprotoni x 40 mg dailymonit or Insomnia 470677355 G47.0 0 temazepam 15 mg hs prnmonitor Falls 445775892 R29.6 hx ofplan:mon itor labsPT OT eval and treatfall precaution sfrequent safety checks Sepsis due to urinary tract infection 484649135 N39.0 levofloxic in 750 mg po daily x 6 more dosesadd probiotic 1 tab po bidmonitor cbc, bmp weeklymoni tor vitals Metabolic encephalopathy 96244592 G93.41 due to sepsismoni tor for improvemen t and sequelae Folic acid deficiency 19 8245453 E53.8 found to have folic acid deficiency in hosp 08/20/23fol ic acid 1 mg po dailymonit or Hypothermia 088591420 T6 8.XXXA resolved with elise ordonez and tx in hospmonito r Clostridio ides difficile infection 528933447 A04.72 [facility], still having diarrheava ncomycin 125 mg po cap po q 6 hours until 08/28add probiotic 1 tab po bidmonitor for sequelaemo nitor vitals, s/s of dehydratio n etc.... Retention of urine 02308 4002 R33.9 hx of urinary retention and mcdonald inserted in hosp and dc with foleyremov ed mcdonald on wednesday08/30/23, pvr q shift, if greater than 350 straight cath, may dc order if < 350 x 3 or reinsert mcdonald if > 350 x 3.fu with urology outpt for frequent uti and retentionc onsider flomax if retention occursmoni tor Adult fail ure to thrive syndrome 594721864 R62.7 hx of multiple admissions in recent pastweight of 81 lbsstartwe ight weeklydiet ician to consult for increasing calorie needsconsi keven remeron if needed to increase calories and promote healingmon itor Abrasion 569005084 T14.8 XXA denuded skin to left upper thighcontz eroform and foam dressing dailymonit or [id number] Shereen Hilario MD [address] [place] [address] 08/30/2023 21:18:07 09/06/2023 09:10:49 Sepsis due to urinary tract infection 391239090 A41.89 Completing course of abxs with levofloxac in 750 mg qd, today.Cont inue probiotic BID until 08/31.Monit or sxs and labs Metabolic encephalopathy 20324843 G93.41 Back to baseline.M onitor Hypothermia 481086645 T6 8.XXXA Resolved.M onitor temp Clostridio ides difficile infection 807541610 A04.72 Stools improving. Completed vancomycin 125 mg q 6 hrs yesterday. Continue probiotic BIDMonitor for recurrence . Folic acid deficiency 19 7087065 E53.8 Continue folic acid 1 mg qdMonitor Anxiety 14049193 F41.1 Mood sl. anxious tonight.Co ntinue seroquel 25 mg BID, temazepam 15 mg qhs prn, and lorazepam 1 mg BID prn. Reeval in 14 days.Monit or mood.Consu lt psych prn Gastroesop hageal reflux disease without esophagitis 402559173 K21.9 No current sxs.Contin ue famotidine 20 mg BID and pantoprazo le 40 mg qdMonitor sxs Insomnia 452393795 G47.0 0 As above.Becca tor sleep patterns. Falls 166160421 R29.6 Very deconditio irish after a series of illnesses. Needs PT/OT for strengthen ing, balance, gait training, safety and function.C ontinue fall precaution s.Monitor for safety. Retention of urine 52377 4002 R33.8 Was going to get mcdonald removed today, but didn't get done in the AM and pt preferred not to have it taken out until tomorrow morning.OK to wait.When removed will monitor PVRs and reinsert if needed.If need to be reinserted would add tamsulosin and consult uro. Adult fail ure to thrive syndrome 081026385 R62.7 Wt stable from last admission, but still very underwt.Co ntinue meds as above.Cons ider nutritiona l supplement . Abrasion 831486789 T14.8 XXA Not examined today.Cont inue local care as ordered.Faraz gamblekatie. Compressio n fracture of thoracic vertebra 4466946347 104 S22.040D With acute fx of T4 and chronic fxs of T8 and T11. Manageable at home with OTC meds, but bed here is causing increased pain.Will start tramadol 50 mg BID prn.Contin ue APAP 650 mg q 4 hrs prn and ibuprofen 400 mg q 8 hrs prn.Pt says she's not taking ibuprofen, because it only works if she takes 1000 mg and she knows that is bad for her stomach. [id number] Britany Dunbar NP [facility] [address] [facility] [place] [address] 09/03/2023 08:05:05 09/07/2023 09:20:23 Sepsis due to urinary tract infection 185464841 A41.89 Completed course of abxs with levofloxac in 750 mg and probioticM onitor sxs and labs Metabolic encephalopathy 55321615 G93.41 Back to baseline with congitionM onitor Clostridio ides difficile infection 382566089 A04.72 Stools improving, but still having loose stools. technicall y off precaution s now but may leave in place per facility dueComplet ed vancomycin 125 mg q 6 hrsMonitor for recurrence . Folic acid deficiency 19 7709441 E53.8 Continuefo lic acid 1 mg qdMonitor Anxiety 46781897 F41.1 Mood sl. anxious tonight.Co ntinuesero quel 25 mg BIDtemazep am 15 mg qhs prn, and lorazepam 1 mg BID prn. Reeval in 14 days on 4/2Monitor mood.Consu lt psych prn Gastroesop hageal reflux disease without esophagitis 818552211 K21.9 No current sxs.Contin uefamotidi ne 20 mg BIDpantopr azole 40 mg qdMonitor sxs Insomnia 706419870 G47.0 0 As above.Becca tor sleep patterns. Falls 770858001 R29.6 Very deconditio irish after a series of illnesses. Needs PT/OT for strengthen ing, balance, gait training, safety and function.C ontinuefal l precaution sneeds encouragem ent for self care here with support in preparatio n for home.Monit or for safety. Retention of urine 44868 4002 R33.8 resolvedfo margarita removed and urinating large amounts Adult fail ure to thrive syndrome 649780010 R62.7 Wt stable from last admission, but still very underwt.Co ntinue meds as above.Cons ider nutritiona l supplement and protein Abrasion 438063902 T14.8 XXA Not examined today.Cont inue local care as ordered.Mo tyeor. Compressio n fracture of thoracic vertebra 3188464947 104 S22.040D With acute fx of T4 and chronic fxs of T8 and T11. Manageable at home with OTC meds, but bed here is causing increased pain, seems better todaycontt ramadol 50 mg BID prn. (not using or needing here over last few days)APAP 650 mg q 4 hrs prnrefuses ibuprofen 400 mg q 8 hrs prn. as it bothers her stomach [id number] [facility] [address] 09/06/2023 14:02:55 09/09/2023 10:04:52 Sepsis due to urinary tract infection 036117582 A41.89 Completed course of abxs with levofloxac in 750 mg and probioticM onitor sxs and labs Metabolic encephalopathy 35743816 G93.41 Back to baseline with congitionM onitor Clostridio ides difficile infection 654820582 A04.72 Stools improving, but still having loose stools.She is technicall y off precaution sCompleted vancomycin 125 mg q 6 hrs therapyMon itor for recurrence . Folic acid deficiency 19 1926988 E53.8 Continuefo lic acid 1 mg qdMonitor Anxiety 61646283 F41.1 Mood very anxious as getting closer to dischargeC ontinueser oquel 25 mg BIDtemazep am 15 mg qhs prnlorazep am 1 mg BID prn. Reeval in 14 days on 09/19Monito r mood.Consu lt psych prn Gastroesop hageal reflux disease without esophagitis 921881195 K21.9 No current sxs.Contin uefamotidi ne 20 mg BIDpantopr azole 40 mg qdMonitor sxs Falls 517571789 R29.6 remains very deconditio irish after a series of illnesses. Needs PT/OT for strengthen ing, balance, gait training, safety and function.C ontfall precaution sneeds encouragem ent for self care here with support in preparatio n for home.Monit or for safety. Adult fail ure to thrive syndrome 754267177 R62.7 Wt stable from last admission, but still very underwt.Co ntinue meds as above.Cons ider nutritiona l supplement and protein Abrasion 524994392 T14.8 XXA Not examined today.Cont inue local care as ordered.Mo nitor. Compressio n fracture of thoracic vertebra 8630341943 104 S22.040D With acute fx of T4 and chronic fxs of T8 and T11. Manageable at home with OTC meds, but bed here is causing increased pain, seems better todaycontt ramadol 50 mg BID prn. (not using or needing here over last few days)APAP 650 mg q 4 hrs prnrefuses ibuprofen 400 mg q 8 hrs prn. as it bothers her stomach Hemorrhoids [id number] K64 .9 pt with hemorrhoid s chronicall y with reoccuranc e with loose stoolsh/h stable, will trend with labs tomreports using preparatio n h with good effectmoni tor Hypokalemia [id number] E87 .6 acute hypkalemia 2.7 from labs 4/1replete with potassium 40 meq po q 6 hours x 5 dosesreche ck labs in am-underst anding she will be partially repleted but would like to go home if enough to be stablemoni tor [address] [facility] [address] 09/08/2023 16:07:33 09/13/2023 09:34:40 Hypokalemia 84198607 E87.6 resolved wtih replacemen t to 3.9acute hypkalemia 2.7 from labs 4/1replete with potassium 40 meq po q 6 hours x 5 dosesfu with pcp outpt Sepsis due to urinary tract infection 264561602 A41.89 Completed course of abxs with levofloxac in 750 mg and probioticw bc improvingM onitor sxs and labs outpt with pcp Clostridio ides difficile infection [id number] A04.72 Stools improving, but still having semi-loose stools.off precaution sCompleted vancomycin 125 mg q 6 hrs therapyMon itor for recurrence outpt with pcp Anxiety 57871864 F41.1 Mood very anxious as getting closer to dischargeC ontinueser oquel 25 mg BIDtemazep am 15 mg qhs prnlorazep am 1 mg BID prnMonitor mood outpt with pcpConsult psych prn outpt Metabolic encephalopathy [id number] G93.41 Back to baseline with cognitionM onitor outpt with pcp Folic acid deficiency 19 8870408 E53.8 folic acid 1 mg qdMonitor with pcp outpt Gastroesop hageal reflux disease without esophagitis [id number] K21.9 No current sxs.Contin uefamotidi ne 20 mg BIDomepraz ole 40 mg qd(changed from pantoprazo le)Monitor sxs outpt with pcp [place] 578739167 R29.6 remains very deconditio irish after a series of illnesses. Needs PT/OT for strengthen ing, balance, gait training, safety and function as willing and needed outptContf all precaution s and safety precaution s in homeneeds encouragem ent for self careMonito r for safety with vna and pcp oupt Adult fail ure to thrive syndrome [id number] R62.7 Wt stable from last admission, but still very underwt.Co ntinue meds as above.Cons ider nutritiona l supplement and protein outpt also Compressio n fracture of thoracic vertebra [id number] 104 S22.040D With acute fx of T4 and chronic fxs of T8 and T11. Manageable at home with OTC meds, but bed here is causing increased pain, seems better nowAPAP 650 mg q 4 hrs prnnote: refuses ibuprofen 400 mg q 8 hrs prn. as it bothers her stomachmon itor outpt with pcp Hemorrhoids 10166527 K64 .9 pt with hemorrhoid s chronicall y with reoccuranc e with loose stoolsh/h stablerepo rts using preparatio n h with good effectmoni tor outpt with pcp Leukocytosis 482711690 D 72.829 resolvingf u with pcp outptmonit or for s/s of infection and trend Health Concerns Section Related Observation LastModified by Organization Detai ls LastModified Time None Recorded Concern Status LastModified by Organization Details LastModified Time None Recorded Advance Directives Directive Y: Payers Encounter Date Sequence Insurance Name Policy Number Policy Rueda Covered Member ID Rueda Member ID Guarantor Name 08/25/2023 2 [place] [id number] Lisa Wagner [id number] Lisa Wagner 08/25/2023 1 [place] Lisa L Wagner [id number] Lisa Wagner 08/30/2023 2 [place] [id number] Lisa Wagner [id number] Lisa Wagner 08/30/2023 1 [place] [place] Lisa L Wagner [id number] Lisa Wagner 09/03/2023 2 [place] [id number] Lisa Wagner [id number] Lisa Wagner 09/03/2023 1 [place] [employer] Lisa L Wagner [id number] 1 Lisa Wagner 09/06/2023 2 [place] [id number] Lisa Wagner [id number] Lisa Wagner 09/06/2023 1 [place] [employer] Lisa L Wagner [id number] Lisa Wagner 09/08/2023 2 [place] [id number] Lisa Wagner [id number] Lisa Wagner 09/08/2023 1 [place] [employer] Lisa L Wagner [id number] 1 Lisa Wagner Notes Date Note Type Note Provider Name and Address Organization Details Recorded Time 08/25/2023 text/html Pt is seen for a n initial intake summary. 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 Her hosp course: She required nonrebreather initially for o2 sat 70s, had a temp of 93.8 requiring bear hugger, labs showed trop of 49.3, ck 311, tsh 0.62, alb 2.2. resp panel negative for flu, covid, or rsv. Head Ct neg for acute changes and chest CT /abd pelvis showed mild pulmonary emphysema levels increased size,pleural effusion and new small right pleural effusion associated wtih atelectasis and no overt pna, no pulm edema, and dilated esophagus. She required 2l IVF, IV cefipime, 10 mg dexamethasone, started on Unasyn for UTI raoultella ornithinolytica and enterobacter cloacae complex sensitive to levaquin to complete 6 days on discharge. She continues on vanco for cdiff dx on 08/14 to complete on 08/28. She was started on folic acid 1 mg po daily and to finish levaquin, otherwise no changes. She scores a 15/15 on her BIMS and a high fall risk. of note: was admitted to hosp 08/13-08/18 and dc wtih cdiff proctocolitis with VNA, however VNA declined. MOLST: DNR/DNI/No cpap/transfer to hosp/no dialysis/no art nut/no art hy 08/25/23 Britany Dunbar NP [address] [facility], [address], [place], [address], [facility] 08/26/2023 17:31:36 08/30/2023 text/html This is a 72 yo woman who is here for rehab after several recent hospitalizations.Most recently 08/19- at [facility] for urosepsis.Prior to that 08/13-08/18 for c. diff and hypokalemia.And before that 07/18-07/20 for dizziness with fall and compression fx, with [facility] stay 07/20- during which she was also txed for a UTI. She presented to the [facility] ED on 08/19 after her REPORT MANAGER found her on the ground for unknown downtime.In the ED she was found to be hypothermic. She was put in a aline hugger, started on IV fluids, and cefepime empirically. Bicarb was 17 and lactic acid was 1.4. Viral panel was neg. U/A looked pos. Imaging was all non-acute.Mcdonald was placed for urinary retention.There was a question of aspiration and abx was changed to Unasyn, then changed to levaquin which also covered the bugs which grew from urine cx: Raoultella ornithinolytica and Enterobacter cloacae. Blood cxs remained neg.She was continued on po vanco which she was on for c.diff, dxed prior hospitalization.Echo showed normal LV systolic function with EF 55-60% with hypokinesis noted in the basal inferior, mid anterolateral, mid inferolateral segments similar to prior exam. SELF PAY SPECIALIST eval showed no signs of aspiration and rec. was chopped diet with thin liquids.She had a K+ of 3.1 on the day of d/c and was given 40 meq KCl.She was transferred here on 08/22. She tells me she is only having one stool in the morning now, but still loose, and incontinent. She tells me her back pain is really bothering her, due to the bed here. At home it bothers her too, but not as bad. Also very anxious because she needs a letter saying she is clear of c. diff when she is d/c'd or else the won't let her back into her apt. 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 Shereen Hilario MD [address] [place] [address], [address], [place], [address], [facility] 09/03/2023 01:59:11 09/03/2023 text/html This is a 72 yo woman who is here for rehab after several recent hospitalizations presenting with cdiff, UTI, and asthenia at rehab. 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 On exam, Laury is seen sitting on the toilet this am in NAD. She is working with therapy today on getting ready for discharge next week. She denies any pain, nausea, vomiting, urinary freq, urgency, or pain. She had her mcdonald removed earlier this week and has done well without distention and voiding large amounts. She is able to wipe herself for large amounts of brown loose stool this am, in which she needs encouragement to perform. She appears euvolemic. She continues with therapy for strengthening, balance, adls, gait training, and asthenia. Mcdonald was removed earlier this week without difficulty voiding. She was seen by preliminary school psychologist and no medication changes at this time. Social work is trying to align services up for her discharge next week. Note: Recent hospitalizations:08/19- at [facility] for urosepsis.08/13-08/18 for c. diff and hypokalemia.07/18-07/20 for dizziness with fall and compression fx, with [facility] stay 07/20- during which she was also txed for a UTI. Britany Dunbar, JEREMY [address] [place] [address], [address], [place], [address], [facility] 09/03/2023 11:16:49 09/06/2023 text/html This is a 72 yo woman who is here for rehab after several recent hospitalizations presenting with cdiff, UTI, and asthenia at rehab for gait training, balance, adls, and strengthening. 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 On exam, Laury is a thin frail elderly lady seen in the activity room after walking with walker ,appearing anxious stating she would like to go back to her room soon. She reports her goal is to go home tomorrow. She appears hydrated with clear lungs. She reports having diarrhea and occassional hemorrhoids with slight bleeding due to the wiping with diarrhea. She reports she is using preparation H and it is helping. She continues with therapy for strengthening, balance, adls, gait training, and asthenia. Therapy and nursing state she continues to request help or refuses to participate and seems frustrated when she is asked to cooperative with self care to show she is ready for home. She has a k of 2.7 today noted on labs and replacement is ordered. She is aware she will need several doses and labs can be evaluated tomorrow to see if it is improved with potential to go home in the late afternoon if she can show therapy she can perform adls tomorrow, which she hasn't yet. She is aware of plan and agreeable to revisit tomorrow.Her wbc is slightly elevated at 11.7 and will recheck labs tomorrow am. Note: Recent hospitalizations:08/19- at [facility] for urosepsis.08/13-08/18 for c. diff and hypokalemia.07/18-07/20 for dizziness with fall and compression fx, with [facility] stay 07/20- during which she was also txed for a UTI. Britany Dunbar, JEREMY [address] [facility], [address], [place], [address], [facility] 09/06/2023 14:36:11 09/08/2023 text/html Pt seen for disc harge summary. This is a 72 yo woman who is here for rehab after several recent hospitalizations presenting with cdiff, UTI, and asthenia at rehab for gait training, balance, adls, and strengthening now ready for discharge. 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 She continues with therapy for strengthening, balance, adls, gait training, and asthenia. She often refuses to cooperative with rehab and therapy per staff but does ambulate back and forth to the bathroom. She is able to use walker and ambulate over [address] She has vna and manager of purchasing at home. She will fu with Dr. Banks and call for fu appt already initiated by nursing. She plans to dc with caregiver friend at 0900 on 09/08. While at [facility]: She completed her course of cdiff medication vancomycin. Athough she continues with stools they are formed and much improved. On 09/05 her potassium was replaced for a critically low 2.7 and labs rechecked with 3.9, now normal. Her wbc is slightly elevated at 11.7 and labs on 09/06 noted wbc 13.1, hgb 12.6, hct 40.1, plt 332, glucose 98, k 3.9, bun 15, and cr 0.94. Her wbc is improving at 09/07 10.6, hgb 10, hct 32.5, plt 346, na 140, k 3.9, bun 15 cr 0.94.Urinalysis requested but staff unable to obtain and will retry. On exam, Laury remains afebrile. She denies any urinary symptoms or s/s of infection including dysuria, frequency, or urgency. Nursing states her urine is clear strawlike and not malodorous. A sample was obtained and sent out today. Will not treat at this time as wbc is improving and asymptomatic.She cannot give a stool sample as her stool is formed and lab will not accept for c dif. Dc order for c dif. Laury reports she does not have temazepam, ativan, metoprolol, omeprazole, or seroquel and requests scripts. All scripts given except lorazepam inwhich she has a 3o day supply given to her on dc. Note: Recent hospitalizations:08/19- at [facility] for urosepsis.08/13-08/18 for c. diff and hypokalemia.07/18-07/20 for dizziness with fall and compression fx, with [facility] stay 07/20- during which she was also txed for a UTI. Britany Dunbar NP [address] [place] [address], [address], [place], [address], [facility] 09/08/2023 16:54:02 OBGyn Episode No OBEpisode recorded.
--- OUTSIDE RECORDS SUMMARY | 2024-10-05 12:34 | XMS_ITS ---
Author Organization [facility] Care Team Providers Care Blue Leather Setter Name Role Phone Edmundo Mireles Unavailable Unavailable Corie Sweet Unavailable Unavailable Shereen Hilario Unavailable Unavailable Allergies and adverse reactions No Known Allergies Care Team Name Role Address Phone Organization Dates Edmundo Mireles PCP [address], [address], [facility] (Office): : [facility] 08/24/2022 - 09/22/2022 Corie Sweet Attending Physician [address], [address], [place] (Office): : [facility] 08/24/2022 - 09/22/2022 Shereen Hilario Attending Physician [address], [address], [facility] (Office): [facility] 08/24/2022 - 09/22/2022 Immunizations Immunization Status Vaccine Details Vaccine Code CodeSystem Reji e Notes SARS-COV-2 (COVID-19) completed SARS-COV-2 (COVID-19) vaccine, mRNA, spike protein, LNP, preservative free, 30 mcg/0.3mL dose Mfg: [employer]aila Step 1 of Multi-step 208 CVX created date: 08/24/2022 administered date: 04/16/2021 Moderna Covid-19 Booster (SARS-COV-2) vaccine completed SARS-COV-2 (COVID-19) vaccine, mRNA, spike protein, LNP, preservative free, 100 mcg/0.5mL dose or 50 mcg/0.25mL dose 207 CVX created date: 08/24/2022 administered date: 10/21/2021 [employer] Covid-19 Bi-valent Solution completed SARS-COV-2 (COVID-19) vaccine, mRNA, spike protein, LNP, bivalent, preservative free, 30 mcg/0.3 mL dose, opal-sucrose formulation 300 CVX created date: 08/24/2022 administered date: 04/28/2022 Mental Status Section Date Assessment Total Score Description 09/22/2022 BIMS 13 cognitively int act CAM 0 No delirium ind icated PHQ-9 02 minimal depress ion 08/30/2022 BIMS 13 cognitively int act CAM 0 No delirium ind icated PHQ-9 02 minimal depress ion Problems Problem # Description Date of onset Resolved Date Code CodeSystem Concern Status 1 URINARY TRACT INFECTION, SITE NOT SPECIFIED 09/03/[address] active 2 GENERALIZED ANXIETY DISORDER 08/28/[address] active 3 MAJOR DEPRESSIVE DISORDER, SINGLE EPISODE, MODERATE 08/28/[address] active 4 RAYNAUD'S SYNDROME WITHOUT GANGRENE 08/25/[address] active 5 FRACTURE OF OTHER PARTS OF PELVIS, SUBSEQUENT ENCOUNTER FOR FRACTURE WITH ROUTINE HEALING 08/24/[address] active 6 GASTRO-ESOPHAGEAL REFLUX DISEASE WITHOUT ESOPHAGITIS 08/24/[address] active 7 HISTORY OF FALLING 08/24/[address] active 8 MAJOR DEPRESSIVE DISORDER, SINGLE EPISODE, SEVERE WITHOUT PSYCHOTIC FEATURES 08/24/[address] active 9 MAJOR DEPRESSIVE DISORDER, SINGLE EPISODE, UNSPECIFIED 08/24/[address] active 10 OTHER LACK OF COORDINATION 08/24/[address] active 11 RETENTION OF URINE, UNSPECIFIED 08/24/[address] active 12 UNSPECIFIED FRACTURE OF LEFT TOE(S), SUBSEQUENT ENCOUNTER FOR FRACTURE WITH ROUTINE HEALING 08/24/[address] active 13 UNSPECIFIED MOOD [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 08/24/[address] active 14 UNSPECIFIED PROTEIN-CALORIE MALNUTRITION 08/24/[address] active Reason for Referral No Reasons for Referral Entered Social History Social History Observation Description Start Date End Date Code Code System Current Smoking Status Tobacco smoking consumption unknown 621830517 SNOMED CT Sex Assigned At Female 1950 22462-0 [facility] Vital Signs Code Code System Vitals Name Values and Units Timing Information 9279-1 [facility] Respiratory Rate Value=18.0 Units=/m in 09/22/2022 8462-4 [facility] Blood Pressure-Diastolic Value=72 Un its=mmHg 09/22/2022 8480-6 [facility] Blood Pressure-Systolic Jorcx=320 Un its=mmHg 09/22/2022 8310-5 [facility] Body Temperature Value=98.0 Units=?? F 09/22/2022 8867-4 [facility] Heart rate Value=68.0 Units=/min 30595-5 [facility] O2 % BldC Oximetry Value=98.0 Units= % 09/22/2022 37351-5 [facility] Pain Level Value=0.0 09/22/2022 85680-9 [facility] Weight Value=90.0 Units=Lbs 09/05 8302-2 [facility] Height Value=59.0 Units=Inches 09/03/2022
--- OUTSIDE RECORDS SUMMARY | 2024-10-05 12:34 | XMS_ITS | Clinical Summary ---
Author Organization [facility] Facility Address [address] [place] [address] Care Team Providers Care Agricultural Crop Farm Manager Name Role Phone Aniyah Smith MD Primary Care Provider [phone] Social History Tobacco Use Types Packs/Day Years Used Date Smoking Tobacco: Never Assessed Comments Unknown Sex and Gender Information Value Date Recorded Sex Assigned at Not on file Legal Sex Female 8:41 AM EDT Gender Identity Not on file Sexual Orientation Not on file Plan of Treatment Health Maintenance Due Date Last Done Comments Breast Cancer Screening 1950 Pneumococcal Vaccine: 50+ Ye ars (1 of 2 - PCV) 12/21/1967 Colorectal Cancer Screening: Annual FOBT 1997 Colorectal Cancer Screening: Colonoscopy 1997 Colorectal Cancer Screening: Sigmoidoscopy 1997 Influenza Vaccine (Season Ended) 2025 Hepatitis B Vaccine Aged Out No longe r eligible based on patient's age to complete this topic Insurance Medicare [facility] Medicare [facility] Care Teams Agricultural Crop Farm Manager Relationship Specialty Start Date End Date Aniyah Smith MD [address] [place], [place] PCP - General Internal Medicine 08/24/22
== END 2024-10-05 10:54 | disposition home or self-care (01) ==
LOC: HO.HVNA 10:53
PROVIDERS: Visit Provider Internal Medicine
DX: R39.9 Unspecified symptoms and signs involving the genitourinary system (principal)
CPT/HCPCS: 81001; 81003; 87086; 87088; 87186

== ENCOUNTER 2024-10-25 06:42 | Emergency (ER) | payer MEDICARE, MEDICAID, SELFPAY ==
[2024-10-25 06:50] VITALS: BP 120/61; BP 132/97; PULSE 70; PULSE 88; RESP 20; TEMP 36.4; O2SAT 97; O2SAT 98; BMI 19.4
--- NOTE | 2024-10-25 07:15 | PC.NURSE ---
pt calling ED on her cell phone from room - brought back 28 min prior to phone call. reporting increased pain and allergy to melissa, provider and primary RN aware.
--- NOTE | 2024-10-25 07:20 | PC.NURSE ---
patient called main emergency department stating that she needs assistance immediately upon entering the room from waiting room. patient's meeds met per patient request. pt pending provider assessment. plan of care ongoing. call goddard placed within reach.
[2024-10-25] MEDS: valACYclovir HCL 1,000 MG TABLET 1000 MG PO (07:28)
[2024-10-25] MEDS: Acetaminophen 325 MG TABLET 975 MG PO (07:28)
[2024-10-25] MEDS: Lidocaine 4 % Cream KIT 1 APPL TOPICAL (07:28)
--- NOTE | 2024-10-25 07:35 | ED_ITS ---
HPI - General Adult General Chief complaint: General Medical Stated complaint: SHINGLES FLARE UP Time Seen by Provider: 10/25/24 06:55 History of Present Illness ED Provider: Jacques Estrada MD HPI narrative: This is a 73-year-old female with history of shingles she has had about 2 weeks of pain associated with right midthoracic dermatome shingles. She has been taking gabapentin with some GI adverse effects. No antivirals initiated. No other associated symptoms denies fever Related Data Previous Rx's ?Medication ?Instructions ?Recorded foot inserts #1 ea 12/04/21 bed rail #1 ea 01/05/24 adult diapers briefs #240 ea 01/06/24 famotidine 20 mg tablet 20 mg PO BID@0900,1200 90 days 03/27/24 #180 tabs hospital bed #1 ea 04/26/24 atorvastatin 40 mg tablet 40 mg PO BEDTIME 90 days #90 tabs 05/11/24 mirtazapine 15 mg tablet 15 mg PO BEDTIME 90 days #90 tabs 06/13/24 purewick #1 ea 06/14/24 lorazepam 1 mg tablet 1 mg PO BID PRN anxiety 30 days 07/04/24 #60 tabs metoprolol succinate 25 mg 12.5 mg (1/2 x 25 mg) PO DAILY #30 07/13/24 tablet,extended release 24 hr tabs air pressure mattress #1 ea 09/14/24 quetiapine 50 mg tablet 100 mg (2 x 50 mg) PO BID 30 days 09/18/24 #120 tabs temazepam 15 mg capsule 15 mg PO BEDTIME PRN sleep 30 days 09/18/24 #30 caps sulfamethoxazole 800 1 tab PO BID 5 days #10 tabs 10/04/24 mg-trimethoprim 160 mg tablet (Bactrim DS) pantoprazole 40 mg tablet,delayed 40 mg PO DAILY@0630 90 days #90 10/05/24 release tabs phenazopyridine 100 mg tablet 100 mg PO TID PRN pain 2 days #6 10/06/24 (Pyridium) tabs valacyclovir 1 gram tablet 1,000 mg PO Q8H 7 days #21 tabs 10/09/24 oxycodone 10 mg tablet 10 mg PO Q6H PRN pain 30 days #120 10/17/24 tabs gabapentin 800 mg tablet 800 mg PO .four times a day 30 10/24/24 days #120 tabs fosfomycin tromethamine 3 gram 3 g PO Q3D 1 dose #1 ea 10/25/24 oral packet oxycodone 5 mg capsule 5 mg PO BID PRN pain #2 caps 10/25/24 oxycodone 5 mg capsule 5 mg PO BID PRN pain #4 caps 10/25/24 pregabalin 75 mg capsule 75 mg PO BID #14 caps 10/25/24 valacyclovir 1 gram tablet 1,000 mg PO TID 7 days #21 tabs 10/25/24 Allergies Allergy/AdvReac Type Severity Reaction Status Date / Time No Known Allergies Allergy Verified 10/25/24 06:54 [facility] Past Medical History Medical History (Updated 10/26/24 @ 13:19 by Jacques Estrada MD) Pubic ramus fracture Moderate protein-calorie malnutrition Closed compression fracture of thoracic vertebra Aspiration pneumonia Closed fracture of right hip Stage 4 pressure ulcer Recurrent Clostridioides difficile diarrhea External hemorrhoids Epidermal inclusion cyst White coat syndrome with high blood pressure but without hypertension Dry eyes Hyponatremia Hypercalcemia Diarrhea Renal calculi Constipation by delayed colonic transit GERD (gastroesophageal reflux disease) UTI (urinary tract infection) Villous adenoma of colon Insomnia Raynauds disease Anxiety Surgical History (Updated 06/13/24 @ 10:40 by Aniyah Mcgregor MD) Hip fracture, right History of bronchoscopy History of tonsillectomy Family History Family History Father Medical history unknown Mother Dementia Alzheimers disease Mental health disorder Brother Leukemia Sister Medical history unknown Social History Social History Household Members: None Household Members Other:: nursing home Housing: Apartment Housing Other:: [facility] prior to admission. Do you presently have visiting nurse or other home services: Yes ([employer]) Alcohol intake: former Comment: pt bed/chair bound at baseline Patient Tobacco Use Status: Former Tobacco user Tobacco use type: Cigarette Smoked in Last 30 Days: No e-Cigarette/Vaping Use: Never Used Second Hand Smoke Exposure: No Use of substances other than those prescribed or required for medical reasons: No Advance Directives: Yes Advance Directives on File: Yes Advance Directives Date on File: 11/23/22 Do you have a plan to hurt others: No Plan service: No Current occupational status: retired Cognitive needs: No Hearing needs: No Vision needs: Yes Physical Exam ED Vital Signs: Vital Signs - 24 hr 10/25/24 13:29 Temperature 99.5 F Pulse Rate 84 Respiratory Rate 18 Blood Pressure 141/78 H Pulse Oximetry 95 Oxygen Delivery Method Room Air BMI result Body Mass Index 19.4 Medications Administered Discontinued Medications Generic Name Dose Route Start Last Admin Trade Name Theresa PRN Reason Stop Dose Admin Acetaminophen 975 mg 10/25/24 06:57 10/25/24 07:28 Acetaminophen 325 Mg Tablet PO 10/25/24 06:58 975 mg ONCE ONE Administration Lidocaine 2 patch 10/25/24 08:07 10/25/24 08:33 Lidocaine 4 % Patch Adh..Patch TRANSDERMA 10/25/24 08:08 Not Given ONCE ONE Protocol Lidocaine HCl 1 appl 10/25/24 06:57 10/25/24 07:28 Lidocaine 4 % Cream Kit TOPICAL 10/25/24 06:58 1 appl ONCE ONE Administration Protocol Oxycodone HCl 5 mg 10/25/24 07:36 10/25/24 08:06 Oxycodone Hcl Immed Release 5 Mg Tablet PO 10/25/24 07:37 5 mg ONCE ONE Administration Pregabalin 75 mg 10/25/24 07:36 10/25/24 08:06 Pregabalin 75 Mg Capsule PO 10/25/24 07:37 75 mg ONCE ONE Administration Valacyclovir HCl 1,000 mg 10/25/24 06:57 10/25/24 07:28 Valacyclovir Hcl 1,000 Mg Tablet PO 10/25/24 06:58 1,000 mg ONCE ONE Administration Medical Decision Making Medical Decision Making MDM Narrative: 73 F c/o 2 wk of R truncal rash. She has worsening pain she tried gabapentin says she has been having burning pain to the site and the gabapentin was initially help him because the adverse effects of GI tract. She is coming in mainly for pain control also notes dysuria. No abdominal pain denies fever or chills UTI present despite recent bactrim. No flank pain, fever or suggesting of sepsis/SIRS. Case d/w ID. Rec Fosfomycin x 1 dose. I called and discussed with pts pharmacist at [facility]. Admission/Observation Consideration of admission/observation: Escalation of care including admission/observation considered considered admission for ESBL UTI however pt hemodynamics stable. No suggestion of sepsis. Shingles pain controlled. Lab Data MDM Lab Attestation statement: I reviewed the patient's lab results. Labs: Lab Results 10/25/24 Range/Units 09:05 Urine Color Yellow Urine Appearance Cloudy Urine pH 6.5 (5.0-9.0) Ur Specific [place] 1.020 (1.005-1.025) Urine Protein 30 (1+) H (Neg-Trace) mg/dL Urine Glucose (UA) Negative (Negative) mg/dL Urine Ketones Negative (Negative) mg/dL Urine Blood Small (1+) H (Negative) Urine Nitrite Positive H (Negative) Ur Leukocyte Esterase Large (3+) H (Negative) Urine RBC 11-20 H (0-2) /HPF Urine WBC >50 H (0-5) /HPF Ur Squamous Epith Cells 0-2 (0-2) /HPF Urine Bacteria 4+ (None Seen) Hyaline Casts 0-2 (0-2) /LPF Discharge Plan Discharge Clinical Impression: Shingles rash, Dysuria, Urinary tract infection due to extended-spectrum beta lactamase (ESBL)-producing Klebsiella Patient Disposition: Home, Self-Care Instructions: Shingles (ED), Dysuria (ED) Additional Instructions: DISCHARGE DIAGNOSES: Shingles rash, greater than 2 weeks, right side dermatome. Antiviral treatment initiated today HISTORY OF PRESENTATION: ?2 weeks a rash on the right side EMERGENCY DEPARTMENT COURSE,TESTS, TREATMENTS: While in the ED today you had lidocaine cream followed by patches placed in the right chest wall you were given pregabalin and 1 oxycodone tablet for pain. We started valacyclovir and antiviral. Urine test was done after a straight catheterization DISCHARGE MEDICATIONS: Antivirals and pregabalin were prescribed. [id number] lidocaine patches can be obtained. Antibiotic has been prescribed for UTI FOLLOW-UP: ?Call your primary or general physician soon as possible to discuss your symptoms, your ED visit and to discuss follow up plans Call your primary doctor for follow up to evaluate the rash in 2-3 days INSTRUCTIONS ?& RETURN PRECAUTIONS: If any symptoms change first call your primary physician, if it is after-hours your primary doctors office should have a provider aircraft quality control inspector you can speak with. If the symptoms are severe or very concerning to you then call 911 or return to the ED. If the rash is worsening or you develop drainage from the area fever or severe worsening of the pain or rash return back Jacques Estrada MD Emergency Physician [facility] Prescriptions: New valacyclovir 1 gram tablet 1,000 mg PO TID 7 Days Qty: 21 0RF pregabalin 75 mg capsule 75 mg PO BID Qty: 14 0RF fosfomycin tromethamine 3 gram packet 3 g PO Q3D Qty: 1 0RF oxycodone 5 mg capsule 5 mg PO BID PRN (Reason: pain) Qty: 4 0RF Rx Instructions: Partial Fill upon patient request. oxycodone 5 mg capsule 5 mg PO BID PRN (Reason: pain) Qty: 2 0RF Rx Instructions: Partial Fill upon patient request. No Action (DME) foot inserts See Rx Instructions .Route .MEDSUPPLY Qty: 1 0RF Rx Instructions: As directed (DME) bed rail See Rx Instructions .Route .MEDSUPPLY Qty: 1 0RF Rx Instructions: As directed (DME) adult diapers briefs Small See Rx Instructions .Route .MEDSUPPLY Qty: 240 11RF Rx Instructions: As directed famotidine 20 mg tablet 20 mg PO BID@0900,1200 90 Days Qty: 180 2RF (DME) hospital bed Kit See Rx Instructions .Route Qty: 1 0RF Rx Instructions: As directed atorvastatin 40 mg tablet 40 mg PO BEDTIME 90 Days Qty: 90 1RF (DME) purewick See Rx Instructions .Route .MEDSUPPLY Qty: 1 0RF Rx Instructions: As directed lorazepam 1 mg tablet 1 mg PO BID PRN (Reason: anxiety) 30 Days Qty: 60 5RF metoprolol succinate 25 mg tablet extended release 24 hr 12.5 mg PO DAILY Qty: 30 5RF (DME) air pressure mattress See Rx Instructions .Route .MEDSUPPLY Qty: 1 0RF Rx Instructions: As directed temazepam 15 mg capsule 15 mg PO BEDTIME PRN (Reason: sleep) 30 Days Qty: 30 5RF quetiapine 50 mg tablet 100 mg PO BID 30 Days Qty: 120 5RF sulfamethoxazole-trimethoprim [Bactrim DS] 800-160 mg tablet 1 tab PO BID 5 Days Qty: 10 0RF pantoprazole 40 mg tablet,delayed release (DR/EC) 40 mg PO DAILY@0630 90 Days Qty: 90 1RF phenazopyridine [Pyridium] 100 mg tablet 100 mg PO TID PRN (Reason: pain) 2 Days Qty: 6 0RF valacyclovir 1 gram tablet 1,000 mg PO Q8H 7 Days Qty: 21 0RF oxycodone 10 mg tablet 10 mg PO Q6H PRN (Reason: pain) 30 Days Qty: 120 0RF Rx Instructions: Partial Fill upon patient request. gabapentin 800 mg tablet 800 mg PO .four times a day 30 Days Qty: 120 0RF mirtazapine 15 mg tablet 15 mg PO BEDTIME 90 Days Qty: 90 1RF Interventions: ED Discharge Assessment Last Done: 10/25/24 13:29 Discharge Date/Time: 10/25/24 13:30 Print Language: French
--- OUTSIDE RECORDS SUMMARY | 2024-10-25 08:05 | XMS_ITS | Data Portability ---
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 Plan of Treatment Reminders Order Date Submit Date Provider Last Modified By Organization Details Last Modified Time Details Appointments None recorded. Lab None recorded. Referral None recorded. Procedures None recorded. Surgeries None recorded. Imaging None recorded. Medication Orders tramadol 50 mg tablet [address] [place] [address] , [address] [place] [address], [address], 4 19:48:38 Patient TargetsNo targets recorded. Patient InstructionsNo instructions recorded. Reason for Referral None Reported. Problems Name Problem SNOMED Code Status Onset Date Resolution Date Notes Provider Name and Address Organization Details Recorded Time Falls 040843785 Active 2022 HANSEL DORANTES NP [address] [facility] [address] [facility], [address], [place], [address], [facility] [employer] [facility] 3 12:56:45 Fracture of pelvis 53272880 Active 2022 HANSEL DORANTES NP [address] [facility] [address] [facility], [address], [place], [address], [facility] [employer] 3 12:56:56 Fracture of foot 12714772 Active 2022 HANSEL DORANTES NP [address] [facility] [address] [facility], [address], [place], [address], [facility] [employer] 3 12:57:14 Retention of urine 581797073 Active 2022 HANSEL DORANTES NP [address], [address], [place], [address], [facility] 3 12:57:25 Gastroesoph ageal reflux disease without esophagitis 064378378 Active 2022 HANSEL DORANTES NP [address], [address], [place], [address], [facility] 3 13:02:50 Anxiety 59665639 Active 2022 HANSEL DORANTES NP [address], [address], [place], [address], [facility] 3 13:03:02 Insomnia 097792648 Active 2022 HANSEL DORANTES NP [address] [facility] [address] [facility], [address], [place], [address], [facility] 3 13:03:10 Constipatio n 14845846 Active 2022 HANSEL DORANTES NP [address] [facility] [address] [facility], [address], [place], [address], [facility] 3 13:04:29 Hypokalemia 58926605 Active 2022 HANSEL DORANTES NP [address] [facility], [address], [place], [address], [facility] 3 13:10:05 Fracture of phalanx of foot 47020742 Active 2022 Shereen Hilario MD [address] [facility], [address], [place], [address], [facility] 3 22:56:52 Hypercalcem ia 07705403 Active 2022 Shereen Hilario MD [address], [address], [place], [address], [facility] 3 23:18:36 Acute urinary tract infection 655706581 Active 2022 HANSEL DORANTES NP [address], [address], [place], [address], [facility] 3 11:01:09 Metabolic encephalopa thy 03630389 Active 2023 Britany Dunbar NP [address] [facility], [address], [place], [address], [facility] 4 12:40:13 Folic acid deficiency 254159220 Active 2023 Britany Dunbar NP [address] [facility] [address] [facility], [address], [place], [address], [facility] 4 12:40:49 Adult failure to thrive syndrome 699945510 Active 2023 Shereen Hilario MD [address] [facility], [address], [place], [address], [facility] 4 01:57:58 Compression fracture of thoracic vertebra 6236747600716 Active 2023 Shereen Hilario MD [address] [facility], [address], [place], [address], [facility] 4 01:58:35 Hemorrhoids 80814300 Active 2023 Britany Dunbar NP [address] [facility], [address], [place], [address], [facility] 4 14:32:59 Problem Notes None recorded. [...] Updated DateTime 4 152.4 cm 16 kg/m2 11714.8 6 g 76 /min 18 /min 97.6 [degF] 96 % 96 % 124 mm[Hg] 68 mm[Hg] Britany Dunbar NP [address], [place], [address], [facility] 4 12:05:52 Date Recorded Body height Body mass index (BMI) Body weight Heart rate Respiratory rate Body temperature Oxygen saturation Oxygen saturation in Arterial blood by Pulse oximetry Systolic blood pressure Diastolic blood pressure Provider Name and Address Organization Details Last Updated DateTime 4 152.4 cm 16.1 kg/m2 21340.7 3 g 82 /min 18 /min 98.6 [degF] 98 % 98 % 124 mm[Hg] 68 mm[Hg] Shereen Hilario MD [address], [place], [address], [facility] 4 21:23:27 Date Recorded Body height Body weight Body mass index (BMI) Heart rate Respiratory rate Body temperature Oxygen saturation Oxygen saturation in Arterial blood by Pulse oximetry Systolic blood pressure Diastolic blood pressure Provider Name and Address Organization Details Last Updated DateTime 4 152.4 cm 27605.7 3 g 16.1 kg/m2 80 /min 17 /min 97.9 [degF] 97 % 97 % 118 mm[Hg] 70 mm[Hg] Britany Dunbar NP [address], [place], [address], [facility] 4 08:20:23 Date Recorded Body height Body weight Body mass index (BMI) Heart rate Respiratory rate Body temperature Oxygen saturation Oxygen saturation in Arterial blood by Pulse oximetry Systolic blood pressure Diastolic blood pressure Provider Name and Address Organization Details Last Updated DateTime 4 152.4 cm 40940.7 3 g 16.1 kg/m2 77 /min 18 /min 98.1 [degF] 97 % 97 % 120 mm[Hg] 76 mm[Hg] Britany Dunbar NP [address], [place], [address], [facility] 4 14:03:47 Date Recorded Body height Body weight Body mass index (BMI) Heart rate Respiratory rate Body temperature Oxygen saturation Oxygen saturation in Arterial blood by Pulse oximetry Systolic blood pressure Diastolic blood pressure Provider Name and Address Organization Details Last Updated DateTime 4 152.4 cm 94953.5 7 g 16 kg/m2 70 /min 18 /min 98.2 [degF] 97 % 97 % 120 mm[Hg] 76 mm[Hg] Britany Dunbar NP [address] [facility], [address], [place], [address], [facility] 4 16:08:36 Social History Question Answer Notes LastModified by Organizat ion Details LastModified Time Tobacco Smoking Status Former Smoker HANSEL DORANTES NP [address] [facility], [address], [place], [address], [facility] 08/26/2022 12:45:30 Do You Have An Advance Directive? Yes Information not available 08/26/2022 What Is Your Code Status? DNR/DNI Okay To Transfer To [facility] No Ivf, Art Nutrition, Or Dialysis Information not available 08/25/2023 Where Do You Live? Apartment Lives Home Alone, No Stairs Information not available 08/28/2022 Legal Guardian? No Informati on not available 08/28/2022 Do You Have A Medical Power Of Laundry Aide? Yes Information not available 08/28/2022 What Was The Date Of Your Most Recent Tobacco Screening? 08/25/2023 Information not available 08/25/2023 Do You Have An Out Of Hospital DNR? Yes Information not available 08/28/2022 What Is Your Relationship Status? Information not available 08/28/2022 Has Tobacco Cessation Counseling Been Provided? No N/a As Pt No Longer Smokes Information not available 08/28/2022 Sex: Female Functional Status Question Answer Note LastModified by Organizat ion Details LastModified Time Do you use any illicit or recreational drugs? No Information not available 08/26/2022 Do you or have you ever used any other forms of tobacco or nicotine? No Information not available 08/28/2022 What is your level of alcohol consumption? None Information not available 08/26/2022 Mental Status None recorded. Family History Nothing Reported Notes:mother-dementia, MH di sorder brother- , leukemia Medical History No medical history recorded. Gynecological HistoryNo gynecological history recorded. Obstetrics History GPAL:G 0 P 0 0 0 0 Immunizations Vaccine Type Date Status Note Provider Nam e and Address Organization Details Recorded Time Td(adult) unspecified formulation 1 completed [facility] 08/11/2023 15:56:45 Pneumococcal conjugate PCV20, polysaccharide [id number] conjugate, adjuvant, PF 3 completed [facility] 08/11/2023 15:57:18 SARS-COV-2 (COVID-19) vaccine, UNSPECIFIED 1 completed [facility] 08/11/2023 15:58:11 SARS-COV-2 (COVID-19) vaccine, UNSPECIFIED 2 completed [facility] 08/11/2023 15:58:19 SARS-COV-2 (COVID-19) vaccine, UNSPECIFIED 2 completed [facility] 08/11/2023 15:58:32 Past Encounters Encounter ID Performer Location Encounter Start Date Encounter Closed Date Diagnosis/Indication Diagnosis SNOMED-CT Code Diagnosis ICD10 Code Diagnosis Note [id number] JEREMY KUNZ [address] [facility] [place] [address] 08/26/2022 10:52:45 08/28/2022 16:11:11 Fracture of pelvis 72956734 S32.9XXA PT OT eval and treatoxyco done 5 mg q4hr prn Retention of urine 55975 4002 R33.9 mcdonald cathflomax 0.4 mg hsdoxycycl ine 50 mg bid, no end date Anxiety 77023288 F41.9 ativan 1 mg bid prn to 4/3seroque l 50 mg bid Gastroesop hageal reflux disease without esophagitis 340201886 K21.9 pepcid 20 mg bidprotoni x 40 mg daily Insomnia 094849086 G47.0 0 temazapam 15 mg hs prn Falls 091934227 R29.6 PT OT eval and treatfall precaution sfrequent safety checks Constipation 81972846 K5 9.00 miralax dailycolac e daily Hypokalemia 52097058 E87 .6 monitor labspotass ium/bicarb 25 meq bid MD CHERYL Quesada [address] [place] [address] rd [place] [address] 08/28/2022 18:30:09 08/31/2022 14:39:30 Fracture of pelvis 90732208 S32.9XXD Very deconditio irish and difficulty moving due to pain.Archie nue oxycodone 5 mg q 4 hrs prn and APAP 650 mg q 6 hrs prn.Needs PT/OT for strengthen ing, balance, gait training, safety and function.C ontinue fall precaution s.Monitor for safety.F/U with ortho as planned Retention of urine 91237 4002 R33.8 Continue mcdonald cath until pt. is more mobile.Con tinue tamsulosin 0.4 mg qd and doxycyclin e 50 mg BID for UTI prophylaxi s.Plan voiding trial for when pt able to ambulate independen tly. Anxiety 16089323 F41.1 Mood good tonight.Co ntinue escitalopr am 5 mg qd, seroquel 50 mg BID, hydroxyzin e 15 mg qhs, temazepam 15 mg qhs prn, and lorazepam 0.5 mg BID prn.Monito r mood.Psych consult prn. Gastroesop hageal reflux disease without esophagitis 182729269 K21.9 Continue famotidine 20 mg BID and pantoprazo le 40 mg qd.Monitor sxs. Insomnia 539291031 G47.0 0 Meds as above.Becca tor sleep patterns. Falls 031030488 R29.6 PT/OT as above. Constipation 50897803 K5 9.09 Continue lactulose 30 ml qd, miralax 17 gms qd, and colace 100 mg qd.Use bowel protocol prn.Monito r bowel function. Hypokalemia 52409882 E87 .6 Continue K+ as above.Becca tor labs. Fracture o f phalanx of foot 71763015 S92.592D Continue to wear boot.Ambul ate as tolerated. PT/OT as above.F/U with ortho as planned. Renal tubu lar acidosis 8719533 N25.89 Continue potassium bicarb 25 meq BID.Monito r labs.F/u with renal. 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 Villous ad enomatous polyp of colon 783458894 K63.5 Hx of precancero us polyps.Pt doesn't plan on doing f/u colonoscop ies.Monito r bowel function. Hypercalcemia 61400187 E 83.52 PTH WNL in 09/2021Moni tor Anemia 720714208 D64.89 With marked drop in hgb since initial fall. GI consult inpt recommende d colonoscop y, but pt refuses. She says that even if she had colon CA she wouldn't do anything about it.It seems more likely that drop is due to bleeding from fx.Continu e FeSO4 325 mg qd.Monitor hgb and transfuse for hgb <7 [id number] JEREMY KUNZ [address] [place] [address] 09/02/2022 12:27:02 09/04/2022 15:30:57 Fracture of phalanx of foot 05551407 S92.592D Ambulate as tolerated. PT/OT as above.F/U with ortho as planned. Fracture of pelvis 09096 009 S32.9XXD PT OT eval and treatoxyco done 5 mg q4hr prn Constipation 29117845 K5 9.09 miralax dailycolac e dailylactu lose daily [id number] HANSEL DORANTES NP [address] [address] 09/04/2022 10:58:48 09/08/2022 12:30:49 Fracture of pelvis 68860196 S32.9XXD PT OT eval and treatoxyco done 5 mg q4hr prnbowel protocol Fracture o f phalanx of foot 36239855 S92.592D Ambulate as tolerated. PT/OT as above.F/U with ortho as planned. Retention of urine 37449 4002 R33.8 mcdonald cath-remov ed, voiding wellflomax 0.4 mg hs Acute urin andrew tract infection 892789581 N39.0 levofloxin 250 mg daily to [id number] HANSEL DORANTES NP [address] [address] 09/07/2022 14:40:54 09/09/2022 12:32:56 Fracture of pelvis 61871920 S32.9XXD PT OT eval and treatoxyco done 5 mg q4hr prnbowel protocol Fracture of foot 5814846 5 S92.902D PT OT eval and treatoxyco done 5 mg q4hr prnbowel protocol Fracture o f phalanx of foot 22786101 S92.592D Ambulate as tolerated. PT/OT as above.F/U with ortho as planned. [id number] HANSEL DORANTES NP [address] [address] 09/10/2022 10:30:47 09/16/2022 15:52:39 Anxiety 01282843 F41.1 ativan 1 mg bid prnseroque l 50 mg bidAIMS 0psych prn Insomnia 358255121 G47.0 0 temazapam 15 mg hs prn Fracture of pelvis 40797 009 S32.9XXD PT OT eval and treatoxyco done 5 mg q4hr prnbowel protocol [id number] HANSEL DORANTES NP [address] [address] 09/16/2022 12:50:19 09/22/2022 11:59:18 Fracture of pelvis 94124671 S32.9XXD PT OT eval and treatoxyco done 5 mg q6hr prnbowel protocol Anxiety 22583673 F41.1 ativan 1 mg bid prnseroque l 50 mg bidAIMS 0psych prn [id number] HANSEL DORANTES NP [address] [address] 09/18/2022 12:19:47 09/22/2022 12:53:50 Fracture of pelvis 42911096 S32.9XXA PT OT eval and treatoxyco done 5 mg q6hr prnadvil 400 mg q8hr prn Retention of urine 04075 4002 R33.9 mcdonald cath-remov ed voiding wellflomax 0.4 mg hs Anxiety 34626784 F41.9 ativan 1 mg bid prn to 4/20seroqu el 50 mg bidlexapro 10 mg dailyhydro xyzine 25 mg hspsych prn Gastroesop hageal reflux disease without esophagitis 216380225 K21.9 pepcid 20 mg bidprotoni x 40 mg daily Insomnia 825597721 G47.0 0 temazapam 15 mg hs prn Falls 845441827 R29.6 PT OT eval and treatfall precaution sfrequent safety checks Constipation 75942529 K5 9.00 miralax dailycolac e daily Hypokalemia 04706248 E87 .6 monitor labspotass ium/bicarb 25 meq bid [id number] JEREMY KUNZ [address] [place] [address] 09/21/2022 11:40:35 09/24/2022 15:19:51 Fracture of pelvis 98577087 S32.9XXA PT OT eval and treatoxyco done 5 mg q6hr prnadvil 400 mg q8hr prn Retention of urine 58384 4002 R33.9 flomax 0.4 mg hs Anxiety 40528993 F41.9 ativan 1 mg bid prn to 4/20seroqu el 50 mg bidlexapro 10 mg dailyhydro xyzine 25 mg hspsych prn Gastroesop hageal reflux disease without esophagitis 810346117 K21.9 pepcid 20 mg bidprotoni x 40 mg daily Insomnia 197204455 G47.0 0 temazapam 15 mg hs prn Falls 554853042 R29.6 PT OT eval and treatfall precaution sfrequent safety checks Constipation 74221270 K5 9.00 miralax dailycolac e daily Hypokalemia 17082056 E87 .6 monitor labspotass ium/bicarb 25 meq bid [id number] [facility] Dunbar [facility] [address] [place] [address] 08/25/2023 12:05:06 08/31/2023 10:07:00 Fracture of pelvis 48747748 S32.9XXA hx ofadvil 400 mg q8hr prnmonitor Anxiety 05488597 F41.9 contativan 1 mg bid prn x 14 dyas and reeval ( on at home)seroq uel 25 mg bidpsych prn Gastroesop hageal reflux disease without esophagitis 146851496 K21.9 pepcid 20 mg bidprotoni x 40 mg dailymonit or Insomnia 638163289 G47.0 0 temazepam 15 mg hs prnmonitor Falls 402595176 R29.6 hx ofplan:mon itor labsPT OT eval and treatfall precaution sfrequent safety checks Sepsis due to urinary tract infection 778449495 N39.0 levofloxic in 750 mg po daily x 6 more dosesadd probiotic 1 tab po bidmonitor cbc, bmp weeklymoni tor vitals Metabolic encephalopathy 02442390 G93.41 due to sepsismoni tor for improvemen t and sequelae Folic acid deficiency 19 3423507 E53.8 found to have folic acid deficiency in hosp 08/20/23fol ic acid 1 mg po dailymonit or Hypothermia 220604942 T6 8.XXXA resolved with elise ordonez and tx in hospmonito r Clostridio ides difficile infection 613937302 A04.72 found to have cdiff on last admission to hospprecau tions per facility, still having diarrheava ncomycin 125 mg po cap po q 6 hours until 08/28add probiotic 1 tab po bidmonitor for sequelaemo nitor vitals, s/s of dehydratio n etc.... Retention of urine 96141 4002 R33.9 hx of urinary retention and [...] tor Adult fail ure to thrive syndrome 695825748 R62.7 hx of multiple admissions in recent pastweight of 81 lbsstartwe ight weeklydiet ician to consult for increasing calorie needsconsi keven remeron if needed to increase calories and promote healingmon itor Abrasion 401421334 T14.8 XXA denuded skin to left upper thighcontz eroform and foam dressing dailymonit or [id number] Shereen Hilario MD [address] [address] 08/30/2023 21:18:07 09/06/2023 09:10:49 Sepsis due to urinary tract infection 121217469 A41.89 Completing course of abxs with levofloxac in 750 mg qd, today.Cont inue probiotic BID until 08/31.Monit or sxs and labs Metabolic encephalopathy 90337922 G93.41 Back to baseline.M onitor Hypothermia 382276594 T6 8.XXXA Resolved.M onitor temp Clostridio ides difficile infection 116672231 A04.72 Stools improving. Completed vancomycin 125 mg q 6 hrs yesterday. Continue probiotic BIDMonitor for recurrence . Folic acid deficiency 19 5348709 E53.8 Continue folic acid 1 mg qdMonitor Anxiety 28025427 F41.1 Mood sl. anxious tonight.Co ntinue seroquel 25 mg BID, temazepam 15 mg qhs prn, and lorazepam 1 mg BID prn. Reeval in 14 days.Monit or mood.Consu lt psych prn Gastroesop hageal reflux disease without esophagitis 230807894 K21.9 No current sxs.Contin ue famotidine 20 mg BID and pantoprazo le 40 mg qdMonitor sxs Insomnia 246597502 G47.0 0 As above.Becca tor sleep patterns. Falls 138329310 R29.6 Very deconditio irish after a series of illnesses. Needs PT/OT for strengthen ing, balance, gait training, safety and function.C ontinue fall precaution s.Monitor for safety. Retention of urine 15720 4002 R33.8 Was going to get mcdonald removed today, but didn't get done in the AM and pt preferred not to have it taken out until tomorrow morning.OK to wait.When removed will monitor PVRs and reinsert if needed.If need to be reinserted would add tamsulosin and consult uro. Adult fail ure to thrive syndrome 813608389 R62.7 Wt stable from last admission, but still very underwt.Co ntinue meds as above.Cons ider nutritiona l supplement . Abrasion 093791913 T14.8 XXA Not examined today.Cont inue local care as ordered.Mo jade. Compressio n fracture of thoracic vertebra 3095732998 104 S22.040D With acute fx of T4 [...] knows that is bad for her stomach. [id number] Britany Dunbar, JEREMY [address] [address] 09/03/2023 08:05:05 09/07/2023 09:20:23 Sepsis due to urinary tract infection 757386793 A41.89 Completed course of abxs with levofloxac in 750 mg and probioticM onitor sxs and labs Metabolic encephalopathy 21805473 G93.41 Back to baseline with congitionM onitor Clostridio ides difficile infection 039801808 A04.72 Stools improving, but still having loose stools. technicall y off precaution s now but may leave in place per facility dueComplet ed vancomycin 125 mg q 6 hrsMonitor for recurrence . Folic acid deficiency 19 6914599 E53.8 Continuefo lic acid 1 mg qdMonitor Anxiety 29686458 F41.1 Mood sl. anxious tonight.Co ntinuesero quel 25 mg BIDtemazep am 15 mg qhs prn, and lorazepam 1 mg BID prn. Reeval in 14 days on 4/2Monitor mood.Consu lt psych prn Gastroesop hageal reflux disease without esophagitis 867992739 K21.9 No current sxs.Contin uefamotidi ne 20 mg BIDpantopr azole 40 mg qdMonitor sxs Insomnia 328948235 G47.0 0 As above.Becca tor sleep patterns. Falls 720175881 R29.6 Very deconditio irish after a series of illnesses. Needs PT/OT for strengthen ing, balance, gait training, safety and function.C ontinuefal l precaution sneeds encouragem ent for self care here with support in preparatio n for home.Monit or for safety. Retention of urine 05323 4002 R33.8 resolvedfo margarita removed and urinating large amounts Adult fail ure to thrive syndrome 727086388 R62.7 Wt stable from last admission, but still very underwt.Co ntinue meds as above.Cons ider nutritiona l supplement and protein Abrasion 486660303 T14.8 XXA Not examined today.Cont inue local care as ordered.Mo jade. Compressio n fracture of thoracic vertebra 6390090779 104 S22.040D With acute fx of T4 and chronic fxs of T8 and T11. Manageable at home with OTC meds, but bed here is causing increased pain, seems better todaycontt ramadol 50 mg BID prn. (not using or needing here over last few days)APAP 650 mg q 4 hrs prnrefuses ibuprofen 400 mg q 8 hrs prn. as it bothers her stomach [id number] Britany Dunbar NP [facility] [address] [address] 09/06/2023 14:02:55 09/09/2023 10:04:52 Sepsis due to urinary tract infection 699331194 A41.89 Completed course of abxs with levofloxac in 750 mg and probioticM onitor sxs and labs Metabolic encephalopathy 41322767 G93.41 Back to baseline with congitionM onitor Clostridio ides difficile infection 833190033 A04.72 Stools improving, but still having loose stools.She is technicall y off precaution sCompleted vancomycin 125 mg q 6 hrs therapyMon itor for recurrence . Folic acid deficiency 19 9681604 E53.8 Continuefo lic acid 1 mg qdMonitor Anxiety 74823375 F41.1 Mood very anxious as getting closer to dischargeC ontinueser oquel 25 mg BIDtemazep am 15 mg qhs prnlorazep am 1 mg BID prn. Reeval in 14 days on 09/19Monito r mood.Consu lt psych prn Gastroesop hageal reflux disease without esophagitis 185620169 K21.9 No current sxs.Contin uefamotidi ne 20 mg BIDpantopr azole 40 mg qdMonitor sxs [place] 936970580 R29.6 remains very deconditio irish after a series of illnesses. Needs PT/OT for strengthen ing, balance, gait training, safety and function.C ontfall precaution sneeds encouragem ent for self care here with support in preparatio n for home.Monit or for safety. Adult fail ure to thrive syndrome 539265762 R62.7 Wt stable from last admission, but still very underwt.Co ntinue meds as above.Cons ider nutritiona l supplement and protein Abrasion 664600041 T14.8 XXA Not examined today.Cont inue local care as ordered.Mo nitor. Compressio n fracture of thoracic vertebra 7182756166 104 S22.040D With acute fx of T4 and chronic fxs of T8 and T11. Manageable at home with OTC meds, but bed here is causing increased pain, seems better todaycontt ramadol 50 mg BID prn. (not using or needing here over last few days)APAP 650 mg q 4 hrs prnrefuses ibuprofen 400 mg q 8 hrs prn. as it bothers her stomach Hemorrhoids 66255287 K64 .9 pt with hemorrhoid s chronicall y with reoccuranc e with loose stoolsh/h stable, will trend with labs tomreports using preparatio n h with good effectmoni tor Hypokalemia 33476948 E87 .6 acute hypkalemia 2.7 from labs 4/1replete with potassium 40 meq po q 6 hours x 5 dosesreche ck labs in am-underst anding she will be partially repleted but would like to go home if enough to be stablemoni tor [id number] Britany Dunbar, JEREMY [facility] [address] [place] [address] 09/08/2023 16:07:33 09/13/2023 09:34:40 Hypokalemia 45926775 E87.6 resolved wtih replacemen t to 3.9acute hypkalemia 2.7 from labs 4/1replete with potassium 40 meq po q 6 hours x 5 dosesfu with pcp outpt Sepsis due to urinary tract infection 650597170 A41.89 Completed course of abxs with levofloxac in 750 mg and probioticw bc improvingM onitor sxs and labs outpt with pcp Clostridio ides difficile infection 391396523 A04.72 Stools improving, but still having semi-loose stools.off precaution sCompleted vancomycin 125 mg q 6 hrs therapyMon itor for recurrence outpt with pcp Anxiety 63415223 F41.1 Mood very anxious as getting closer to dischargeC ontinueser oquel 25 mg BIDtemazep am 15 mg qhs prnlorazep am 1 mg BID prnMonitor mood outpt with pcpConsult psych prn outpt Metabolic encephalopathy 00602286 G93.41 Back to baseline with cognitionM onitor outpt with pcp Folic acid deficiency 19 [id number] E53.8 folic acid 1 mg qdMonitor with pcp outpt Gastroesop hageal reflux disease without esophagitis [id number] K21.9 No current sxs.Contin uefamotidi ne 20 mg BIDomepraz ole 40 mg qd(changed from pantoprazo le)Monitor sxs outpt with pcp [place] [id number] R29.6 remains very deconditio irish after a series of illnesses. Needs PT/OT for strengthen ing, balance, gait training, safety and function as willing and needed outptContf all precaution s and safety precaution s in homeneeds encouragem ent for self careMonito r for safety with vna and pcp oupt Adult fail ure to thrive syndrome [id number] R62.7 Wt stable from last admission, but still very underwt.Co ntinue meds as above.Cons ider nutritiona l supplement and protein outpt also Compressio n fracture of thoracic vertebra [id number] 104 S22.040D With acute fx of T4 and chronic fxs of T8 and T11. Manageable at home with OTC meds, but bed here is causing increased pain, seems better nowAPAP 650 mg q 4 hrs prnnote: refuses ibuprofen 400 mg q 8 hrs prn. as it bothers her stomachmon itor outpt with pcp Hemorrhoids [id number] K64 .9 pt with hemorrhoid s chronicall y with reoccuranc e with loose stoolsh/h stablerepo rts using preparatio n h with good effectmoni tor outpt with pcp Leukocytosis [id number] D 72.829 resolvingf u with pcp outptmonit or for s/s of infection and trend Health Concerns Section Related Observation LastModified by Organization Detai ls LastModified Time None Recorded Concern Status LastModified by Organization Details LastModified Time None Recorded Advance Directives Directive Y: Payers Encounter Date Sequence Insurance Name Policy Number Policy Rueda Covered Member ID Rueda Member ID Guarantor Name 08/25/2023 1 [place] [employer] Lisa L Wagner [id number] 1 Lisa Wagner 08/25/2023 2 [place] [id number] Lisa Wagner [id number] Lisa Wagner 08/30/2023 1 [place] [employer] Lisa L Wagner [id number] 1 Lisa Wagner 08/30/2023 2 [place] [id number] Lisa Wagner [id number] Lisa Wagner 09/03/2023 1 [place] [employer] Lisa L Wagner [id number] 1 Lisa Wagner 09/03/2023 2 [place] [id number] Lisa Wagner [id number] Lisa Wagner 09/06/2023 1 [place] [facility] GOVERNMENT SERVICES Lisa L Wagner [id number] 1 Lisa Wagner 09/06/2023 2 [place] [id number] Lisa Wagner [id number] Lisa Wagner 09/08/2023 1 [place] [facility] GOVERNMENT SERVICES Lisa L Wagner [id number] 1 Lisa Wagner 09/08/2023 2 [place] [id number] Lisa Wagner [id number] Lisa Wagner Notes Date Note Type Note Provider Name and Address Organization Details Recorded Time 08/25/2023 text/html Pt is seen for a n initial intake summary. 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, [address], [place], [address], [facility] [employer] 08/26/2023 17:31:36 08/30/2023 text/html This is a 72 yo woman who is here for rehab after several recent hospitalizations.Most recently 08/19- at [facility] for urosepsis.Prior to that 08/13-08/18 for c. diff and hypokalemia.And before that 07/18-07/20 for dizziness with fall and compression fx, with [facility] stay 07/20- during which she was also txed for a UTI. She presented to the [facility] ED on 08/19 after her MAINTENANCE MAN found her on the ground for unknown [...] mid inferolateral segments similar to prior exam. JOURNEYMAN PIPE FITTER eval showed no signs of aspiration and [...] kidney stones, and hypercalcemia. Shereen Hilario MD [address] [place] [address], [address], [place], [address], [facility] [employer] 09/03/2023 01:59:11 09/03/2023 text/html This is a [...] without difficulty voiding. She was seen by industrial psychology teacher and no medication changes at this time. Social work is trying to align services up for her discharge next week. Note: Recent hospitalizations:08/19- at [facility] for urosepsis.08/13-08/18 for c. diff and hypokalemia.07/18-07/20 for dizziness with fall and compression fx, with [facility] stay 07/20- during which she was also txed for a UTI. Britany Dunbar, JEREMY [address], [address], [place], [address], [facility] [employer] 09/03/2023 11:16:49 09/06/2023 text/html This is a [...] labs tomorrow am. Note: Recent hospitalizations:08/19- at [facility] for urosepsis.08/13-08/18 for c. diff and hypokalemia.07/18-07/20 for dizziness with fall and compression fx, with [facility] stay 07/20- during which she was also txed for a UTI. Britany Dunbar, JEREMY [address], [address], [place], [address], [facility] [employer] 09/06/2023 14:36:11 09/08/2023 text/html Pt seen for [...] feet in hallway. She has vna and board certified behavioral analyst at home. She will fu with Dr. Banks and call for fu appt already initiated by nursing. She plans to dc with caregiver friend at 0900 on 09/08. While at [facility]: She completed her course of cdiff [...] her on dc. Note: Recent hospitalizations:08/19- at [facility] for urosepsis.08/13-08/18 for c. diff and hypokalemia.07/18-07/20 for dizziness with fall and compression fx, with [facility] stay 07/20- during which she was also txed for a UTI. Britany Dunbar, JEREMY [address], [address], [place], [address], [facility] [employer] 09/08/2023 16:54:02 OBGyn Episode No OBEpisode recorded.
[2024-10-25] MEDS: oxyCODONE HCl Immed Release 5 MG TABLET PO (08:06)
[2024-10-25] MEDS: Pregabalin 75 MG CAPSULE PO (08:06)
--- NOTE | 2024-10-25 08:30 | MHC.EDTECH ---
pt noted to be using personal phone to call the main Emergency Dept phone line multiple times, despite also using call goddard to gain this techs attention, as well as yelling out of the room. pt educated on using the call goddard and needs would be met, IRA Dominguez and IRA Coronado both aware.
[2024-10-25 08:32] VITALS: BP 141/78; PULSE 84; RESP 18; TEMP 37.5; O2SAT 95
--- NOTE | 2024-10-25 08:40 | PC.NURSE ---
patient continuously screaming out for help stating that no one has come in here to see me despite multiple staff members already going into the room multiple times to assist the patient with what she needs. patient reeducated on use of call goddard. call goddard placed within reach.
[2024-10-25 09:11] LABS: Appearance Urine Cloudy; Color Urine Yellow; Glucose Urine UA Negative (Negative); Leukocyte Esterase Urine Large (3+) (Negative); Nitrite Urine Positive (Negative); PH 6.5 (5.0-9.0); UMIC TRIGGER UACC YES; Urine Blood Small (1+) (Negative); Urine Ketones Negative (Negative); Urine Protein 30 (1+) mg/dL (Neg-Trace)
[2024-10-25 09:16] LABS: Bacteria Urine 4+ (None Seen); Hyaline Casts Urine 0-2 /LPF (0-2); Squamous Epithelial Cell Urine 0-2 /HPF (0-2); UACC Culture Trigger YES; WBC Urine >50 /HPF (0-5)
--- NOTE | 2024-10-25 09:28 | PC.NURSE ---
patient continuously yelling out into the hallway/calling main emergency department line despite being instructed not to as her call goddard has been placed within reach at all times.
--- NOTE | 2024-10-25 09:47 | PC.NURSE ---
Patient heard yelling out for help, reminded patient to use call goddard for assistance and to not yell or call ED main via telephone for help. Medication effective, pain report 11/14.
[2024-10-25 13:29] VITALS: BP 141/78; PULSE 84; RESP 18; TEMP 37.5; O2SAT 95
== END 2024-10-25 13:30 | disposition home or self-care (01) ==
PROVIDERS: Emergency Provider Emergency Medicine; PCP Internal Medicine
DX: B02.8 Zoster with other complications (principal); R30.0 Dysuria; N39.0 Urinary tract infection, site not specified; Z79.899 Other long term (current) drug therapy; Z87.891 Personal history of nicotine dependence
CPT/HCPCS: 51701; 81001; 87086; 87088; 87186; 99284

== ENCOUNTER 2024-11-09 14:55 | Outpatient (REF) | payer MEDICARE, MEDICAID, SELFPAY ==
[2024-11-09 15:04] LABS: Appearance Urine Turbid; Color Urine Yellow; Glucose Urine UA Negative (Negative); Leukocyte Esterase Urine Large (3+) (Negative); Nitrite Urine Positive (Negative); UMIC TRIGGER UACC YES; Urine Blood Moderate (2+) (Negative); Urine Ketones Trace mg/dL (Negative); Urine Protein 100 (2+) mg/dL (Neg-Trace)
[2024-11-09 15:08] LABS: Bacteria Urine 4+ (None Seen); RBC Urine >20 /HPF (0-2); UACC Culture Trigger YES; WBC Urine >50 /HPF (0-5)
--- OUTSIDE RECORDS SUMMARY | 2024-11-09 17:37 | XMS_ITS | Clinical Summary ---
Author Organization [facility] Facility Address [address] [place] [address] Care Team Providers Care Field Ring Assembler Name Role Phone Aniyah Smith MD Primary Care Provider [phone] Social History Tobacco Use Types Packs/Day Years [...] age to complete this topic Insurance Medicare [facility] Medicare [facility] Care Teams Field Ring Assembler Relationship Specialty Start Date End Date Aniyah Smith MD [address] [place], [place] PCP - General Internal Medicine 08/24/22
== END 2024-11-09 14:56 | disposition home or self-care (01) ==
LOC: HO.HVNA 14:55
PROVIDERS: Visit Provider Internal Medicine
DX: N39.41 Urge incontinence (principal); N39.0 Urinary tract infection, site not specified
CPT/HCPCS: 81001; 81003; 87086; 87088; 87186

== ENCOUNTER 2024-11-23 10:51 | Outpatient (AMB) | payer MEDICARE, MEDICAID, SELFPAY ==
--- NOTE | 2024-11-23 10:56 | MHC.PC.OV ---
Vital Signs 11/23/24 10:57 BMI Reason not done Patient refused/unable BP 110/66 Blood Pressure Location Lt brachial Position Sitting Intake Visit Reasons: 6 month f/u Investment Professional Required: No Accompanied by: AIRLINE CUSTOMER SERVICE AGENT Allergies No Known Allergies Allergy (Verified 11/23/24 11:04) Medication List - Last Reconciled 11/23/24 by Aniyah Mcgregor MD [adult diapers briefs As directed] [air pressure mattress As directed] atorvastatin 40 mg PO BEDTIME 90 days [bed rail As directed] famotidine 20 mg PO BID@0900,1200 90 days [foot inserts As directed] gabapentin 800 mg PO .four times a day 30 days hospital bed As directed lorazepam 1 mg PO BID PRN 30 days metoprolol succinate ER 12.5 mg (1/2 x 25 mg) PO DAILY mirtazapine 15 mg PO BEDTIME 90 days oxycodone 5 mg PO BID PRN oxycodone 10 mg PO Q6H PRN 30 days pantoprazole 40 mg PO DAILY@0630 90 days pregabalin 75 mg PO BID [purewick As directed] quetiapine 100 mg (2 x 50 mg) PO BID 30 days temazepam 15 mg PO BEDTIME PRN 30 days Tobacco use date assessed: 11/23/24 Fall risk assessment: No Falls in past year Last assessed Fall Risk: 11/23/24 Dental Screening Dental Screen Date: 11/23/24 Did you have a dental visit in the last 12 months?: Yes Did you have a dental problem in the last 6 months where you did not have access to dental care?: No Was dental information given to patient?: Patient has dentist HPI HPI Comments History of Present Illness Details The patient is a 73-year-old female presenting with postherpetic neuralgia, urinary tract infection, and arthritis. The patient experienced a urinary tract infection that required emergency room intervention in October, where a rare bacterium, Klebsiella, was identified. The infection has been persistent, and the patient reports difficulty with urination and requires catheterization due to mobility issues. Postherpetic neuralgia began on October 06, leading to severe pain that necessitated emergency care. Initial treatment with gabapentin was ineffective, prompting a switch to Lyrica, which provided partial relief. The patient continues to experience significant pain, particularly in the morning, and uses oxycodone for pain management. The patient has a history of arthritis, which contributes to her chronic pain and mobility issues. She reports the presence of arthritic nodules and significant discomfort, particularly in the mornings. The patient also suffers from cataracts, which affect her vision and daily activities. The patient has been dealing with hemorrhoids, exacerbated by a recent bout of diarrhea. She uses topical treatments like Preparation H for relief. The patient has a history of gastroesophageal reflux disease, managed with famotidine. She also has pure hypercholesterolemia on statins. Also iron-deficiency anemia. Depression with anxiety stable with medications. Pressure ulcers are a concern due to her limited mobility, and she requires an air mattress to prevent further skin breakdown. [facility] Medical History (Updated 11/23/24 @ 12:04 by Aniyah Mcgregor MD) Pubic ramus fracture Moderate protein-calorie malnutrition Closed compression fracture of thoracic vertebra Aspiration pneumonia Closed fracture of right hip Stage 4 pressure ulcer Recurrent Clostridioides difficile diarrhea External hemorrhoids Epidermal inclusion cyst White coat syndrome with high blood pressure but without hypertension Dry eyes Hyponatremia Hypercalcemia Diarrhea Renal calculi Constipation by delayed colonic transit GERD (gastroesophageal reflux disease) UTI (urinary tract infection) Villous adenoma of colon Insomnia Raynauds disease Anxiety Surgical History Hip fracture, right History of bronchoscopy History of tonsillectomy Family History Father Medical history unknown Mother Dementia Alzheimers disease Mental health disorder Brother Leukemia Sister Medical history unknown Social History Household Members: None Household Members Other:: [facility] Housing: Apartment Housing Other:: Leah Elkins prior to admission. Do you presently have visiting nurse or other home services: Yes (AIRLINE CUSTOMER SERVICE AGENT) Alcohol intake: former Comment: pt bed/chair bound at baseline Patient Tobacco Use Status: Former Tobacco user Tobacco use type: Cigarette e-Cigarette/Vaping Use: Never Used Second Hand Smoke Exposure: No Advance Directives Date on File: 11/23/22 service: No Current occupational status: retired Cognitive needs: No Hearing needs: No Vision needs: Yes Questionnaire Thrive Questionnaire Date Thrive assessed: 06/13/24 RACHEL-7 AMB Questionnaire RACHEL-7 Date RACHEL - 7 assessed: 06/13/24 Source: Developed by Drs. Julian Mas, Karina Acevedo, Mook Hogue and colleagues, with an educational bernie from [employer]. Review of Systems Const All systems reviewed & are unremarkable except as noted in HPI and below Card Denies chest pain at rest, Denies chest pain with activity, Denies edema, Denies irregular heart rhythm, Denies claudication, Denies dyspnea, Denies dyspnea on exertion, Denies orthopnea, Denies paroxysmal nocturnal dyspnea and Denies slow heart rate Resp Denies cough, Denies dyspnea and Denies dyspnea on exertion GI Denies abdominal pain, Denies change in bowel habits, Denies excessive flatus, Denies nausea and Denies vomiting Musc Reports back pain Physical exam (Primary Care) Vital Signs: Last Vital Signs BP 110/66 11/23/24 10:57 Tobacco/Smoking Status: Tobacco use Status Tobacco use date assessed 11/23/24 11/23/24 11:00 Patient Tobacco Use Status Former Tobacco user 11/23/24 11:00 Tobacco use type Cigarette 11/23/24 11:00 e-Cigarette/Vaping Use Never Used 11/23/24 11:00 Thrive Assessment: Date of Thrive Assessment Date Thrive assessed 06/13/24 11/23/24 11:00 Const Limitations: wheelchair Resp Effort & Inspection: normal respiratory effort Auscultation: clear to auscultation bilaterally Cardio Jugular venous distension: no JVD Rate: regular rate Rhythm: regular rhythm Heart sounds: S1 normal heart sound present and S2 normal heart sound present Skin Other: sacral ulcer stage 1 Coding Level of Care Code Est Pt Level 4 (63589) Complex EM visit Add On G2211 Diagnoses Mild recurrent major depression F33.0 Anxiety F41.9 Pure hypercholesterolemia E78.00 GERD (gastroesophageal reflux disease) K21.9 External hemorrhoids K64.4 Iron deficiency anemia secondary to inadequate dietary iron intake D50.8 Iron deficiency anemia type: inadequate dietary iron intake Postherpetic neuralgia B02.29 Time Spent (min) 25 Assessment & Plan Assessment & Plan (1) Mild recurrent major depression: Code(s): F33.0 - Major depressive disorder, recurrent, mild Category: Medical (2) Anxiety: Code(s): F41.9 - Anxiety disorder, unspecified Category: Medical (3) Pure hypercholesterolemia: Code(s): E78.00 - Pure hypercholesterolemia, unspecified Category: Medical (4) GERD (gastroesophageal reflux disease): Code(s): K21.9 - Gastro-esophageal reflux disease without esophagitis Category: Medical (5) External hemorrhoids: Code(s): K64.4 - Residual hemorrhoidal skin tags Category: Medical (6) Iron deficiency anemia: Code(s): D50.9 - Iron deficiency anemia, unspecified Category: Medical Qualifiers: Iron deficiency anemia type: inadequate dietary iron intake Qualified Code(s): D50.8 - Other iron deficiency anemias (7) Postherpetic neuralgia: Code(s): B02.29 - Other postherpetic nervous system involvement Category: Medical Plan The management plan includes continuing Lyrica for postherpetic neuralgia, with a prescription for 30 days due to its controlled status. Oxycodone is prescribed at 20 mg twice daily to manage severe pain, particularly in the morning. For the urinary tract infection, the patient will continue with the current antibiotic regimen, and catheterization will be used as needed for urinary retention. An air mattress has been ordered to prevent further pressure ulcers, and the patient is advised to continue using topical treatments for hemorrhoids. The patient is advised to maintain her current regimen for gastroesophageal reflux disease with famotidine. Regular follow-up with the visiting nurse association is recommended to monitor her condition and manage her medications. Patient was informed and verbally consented to the use of an ambient scribe for clinic note documentation during this visit. Orders: Orders UA CC w/rflx Micro + Cult Today R30.0 - Dysuria Medications: New oxycodone Partial Fill upon patient request. 20 mg PO BID PRN 60 tabs 0RF pain 30 days hydrocortisone 2.5% (Proctosol HC) 1 appl TN BID-QID PRN 30 grams 0RF hemorrhoids 2 weeks Changed From pregabalin 75 mg PO BID 14 caps 0RF To pregabalin 75 mg PO BID 60 caps 0RF 30 days Refilled atorvastatin 40 mg PO BEDTIME 90 tabs 1RF 90 days E78.00 - Pure hypercholesterolemia, unspecified quetiapine 100 mg (2 x 50 mg) PO BID 120 tabs 5RF 30 days metoprolol succinate ER 12.5 mg (1/2 x 25 mg) PO DAILY 30 tabs 5RF lorazepam 1 mg PO BID PRN 60 tabs 5RF anxiety 30 days mirtazapine 15 mg PO BEDTIME 90 tabs 1RF 90 days famotidine 20 mg PO BID@0900,1200 180 tabs 2RF 90 days [air pressure mattress] As directed 1 ea 0RF L89.152 - Pressure ulcer of sacral region, stage 2, L89.154 - Pressure ulcer of sacral region, stage 4, Z74.01 - Bed confinement status pantoprazole 40 mg PO DAILY@0630 90 tabs 1RF 90 days temazepam 15 mg PO BEDTIME PRN 30 caps 5RF sleep 30 days [air pressure mattress] As directed 1 ea 0RF L89.152 - Pressure ulcer of sacral region, stage 2, L89.154 - Pressure ulcer of sacral region, stage 4, Z74.01 - Bed confinement status Discontinued oxycodone Partial Fill upon patient request. Discontinued Reason: Patient Completed Course 5 mg PO BID PRN 4 caps 0RF pain oxycodone Partial Fill upon patient request. Discontinued Reason: Patient Completed Course 10 mg PO Q6H 30 days PRN 120 tabs 0RF pain gabapentin Discontinued Reason: Patient Completed Course 800 mg PO .four times a day 30 days 120 tabs 0RF
[2024-11-23 10:57] VITALS: BP 110/66
--- OUTSIDE RECORDS SUMMARY | 2024-11-23 12:24 | XMS_ITS | Clinical Summary ---
Author Organization [facility] Facility Address [address] [place] [address] Care Team Providers Care Offset Assistant Press Operator Name Role Phone Aniyah Smith MD Primary Care Provider [phone] Social History Tobacco Use Types Packs/Day Years [...] age to complete this topic Insurance Medicare [facility] Medicare [facility] Care Teams Offset Assistant Press Operator Relationship Specialty Start Date End Date Aniyah Smith MD [address] [place], [place] PCP - General Internal Medicine 08/24/22
== END 2024-11-23 12:00 | disposition home or self-care (01) ==
PROVIDERS: PCP Internal Medicine; Visit Provider Internal Medicine
DX: F33.0 Major depressive disorder, recurrent, mild (principal); F41.9 Anxiety disorder, unspecified; E78.00 Pure hypercholesterolemia, unspecified; K21.9 Gastro-esophageal reflux disease without esophagitis; K64.4 Residual hemorrhoidal skin tags; D50.8 Other iron deficiency anemias; B02.29 Other postherpetic nervous system involvement

== ENCOUNTER → 2024-11-23 10:51 | Outpatient (BNVA) | payer MEDICARE, MEDICAID, SELFPAY | PROVIDERS: PCP Internal Medicine; Visit Provider Internal Medicine | DX: F33.0 Major depressive disorder, recurrent, mild (principal); F41.9 Anxiety disorder, unspecified; E78.00 Pure hypercholesterolemia, unspecified; K21.9 Gastro-esophageal reflux disease without esophagitis; K64.4 Residual hemorrhoidal skin tags; D50.8 Other iron deficiency anemias; B02.29 Other postherpetic nervous system involvement | CPT/HCPCS: 99212 ==

== ENCOUNTER 2024-11-30 17:05 | Outpatient (REF) | payer MEDICARE, MEDICAID, SELFPAY ==
[2024-11-30 17:16] LABS: Appearance Urine Turbid; Color Urine Yellow; Glucose Urine UA Negative (Negative); Leukocyte Esterase Urine Large (3+) (Negative); Nitrite Urine Negative (Negative); Specific Gravity - Urine 1.015 (1.005-1.025); UMIC TRIGGER UA YES; Urine Blood Small (1+) (Negative); Urine Ketones Negative (Negative); Urine Protein 100 (2+) mg/dL (Neg-Trace)
[2024-11-30 17:28] LABS: Bacteria Urine 4+ (None Seen); RBC Urine >20 /HPF (0-2); Squamous Epithelial Cell Urine 0-2 /HPF (0-2); WBC Clumps Urine Present; WBC Urine >50 /HPF (0-5)
--- OUTSIDE RECORDS SUMMARY | 2024-11-30 19:55 | XMS_ITS | Clinical Summary ---
Author Organization [facility] Facility Address [address] [place] [address] Care Team Providers Care Beauty Sales Advisor Name Role Phone Aniyah Smith MD Primary Care Provider [phone] Social History Tobacco Use Types Packs/Day Years [...] age to complete this topic Insurance Medicare [facility] Medicare [facility] Care Teams Beauty Sales Advisor Relationship Specialty Start Date End Date Aniyah Smith MD [address] [place], [place] PCP - General Internal Medicine 08/24/22
== END 2024-11-30 17:06 | disposition home or self-care (01) ==
LOC: HO.HVNA 17:05
PROVIDERS: Visit Provider Internal Medicine
DX: R39.9 Unspecified symptoms and signs involving the genitourinary system (principal)
CPT/HCPCS: 81001; 87086

== ENCOUNTER 2024-12-11 18:11 | Emergency (ER) | payer MEDICARE, MEDICAID, SELFPAY ==
[2024-12-11 18:08] VITALS: BP 130/82; PULSE 79; O2SAT 94
[2024-12-11 18:13] VITALS: PULSE 76; RESP 16; TEMP 36.6; O2SAT 98; BMI 19.0
[2024-12-11 20:02] LABS: MANUAL DIFF FLAG NO
[2024-12-11 20:16] LABS: Appearance Urine Turbid; Glucose Urine UA Negative (Negative); PH 6.5 (5.0-9.0); Specific Gravity - Urine 1.010 (1.005-1.025); UMIC TRIGGER UACC YES
[2024-12-11 20:17] LABS: Alanine Aminotransferase 14 U/L (0-31); Albumin Level 3.8 g/dL (3.5-5.0); Alkaline Phosphatase 122 U/L (39-117); Anion Gap 12 (12-20); Aspartate Amino Transferase 30 U/L (5-31); Blood Urea Nitrogen 29 mg/dL (9-16); Calcium 9.4 mg/dL (8.4-10.2); Carbon Dioxide 25 mmol/L (22-29); Chloride 106 mmol/L (96-108); Creatinine Clr Calc Pharmacy 39.9; Estimated Glomerular Filt Rate > 60; Hematocrit 35.3 % (37.0-47.0); Hemoglobin 11.4 g/dl (12.0-16.0); Imm Gran Abs Auto 0.16 X10*3/uL (0.00-0.03); Imm Gran Pct Auto 1.1 % (0.0-0.4); Lymphocytes Absolute Auto 2.4 X10*3/uL (1.2-4.9); Magnesium 2.3 mg/dL (1.6-2.6); Mean Corpuscular HGB Conc 32.3 g/dl (31.0-35.0); Mean Corpuscular Hemoglobin 27.5 pg (27.0-33.0); Mean Corpuscular Volume 85.3 fL (80.0-98.0); NRBC Abs Auto 0.000 X10*3/uL (0.0-0.012); NRBC Pct Auto 0.0 /100WBC (0.0-0.2); Platelet Count 522 X10*3/uL (160-400); Potassium 3.7 mmol/L (3.3-5.1); Red Blood Count 4.14 X10*6/uL (4.20-5.50); Sodium 139 mmol/L (135-145); Total Protein 7.2 g/dL (6.5-8.0); White Blood Count 14.4 X10*3/uL (4.8-10.8)
[2024-12-11 20:34] VITALS: BP 135/74; PULSE 74; TEMP 36.6; O2SAT 93
[2024-12-11 20:36] LABS: UACC Culture Trigger YES
--- NOTE | 2024-12-11 22:51 | MHC.CM.ED ---
CM met with patient to discuss discharge planning. PT consult has been placed. Pt has urinary retention and UTI. An indwelling mcdonald catheter has been placed. Pt lives in senior housing. She is wheelchair bound. She can pivot to chair/bed. She has a life alert. Pt has AIRCRAFT RESTORER daily. 7 hours daily from [employer]. AIRCRAFT RESTORER/HCP Miguelina Luong ([phone]). Pt is active with [facility] weekly for wound care on her buttocks. She tells CM that she goes to the [facility] every other week. Her PCP and insurances are verified.Pt will stay overnight. No STR referrals placed, as patient wants to go home and her baseline is Wheelchair bound. Pt will need BLS transport home. Referral to [facility] will be made tonswetha. Pt needs an appointment with urology follow up prior to discharge. Pt is requesting Dr. Norman. She states she saw him years ago. Pt is requesting CM call her AIRCRAFT RESTORER in the morning to review plan of care.
[2024-12-11 23:00] VITALS: BP 152/84; PULSE 80; RESP 14; TEMP 36.5; O2SAT 94
[2024-12-11] MEDS: oxyCODONE HCl Immed Release 5 MG TABLET 20 MG PO (23:25)
[2024-12-12] VITALS (7 sets, daily range): BP systolic 82–131; BP diastolic 53–77; PULSE 66–71; RESP 14–18; TEMP 36.1–36.7; O2SAT 94–95
--- NOTE | 2024-12-12 05:43 | ED_ITS ---
HPI - Female Genitourinary General Chief complaint: Urogenital-Female Stated complaint: urinary retention, UTI Time Seen by Provider: 12/11/24 19:12 Source: patient Limitations: no limitations History of Present Illness ED Provider: Mildred Lou PA-C HPI Narrative: 73-year-old female with a history of chronic microcytic anemia, Raynaud's GERD, mood disorder, stress induced cardiomyopathy, recurrent urinary tract infections, recurrent C diff decubitus ulcers who is followed by wound care with services to the home, who is primarily wheelchair-bound, who presents with urinary retention. Patient states she had urinary retention last week, she was about to be catheterized, when she is able to void on her own. Today, she has not been able to void since 3:00 a.m.. Denies abdominal pain, nausea, vomiting. Related Data Previous Rx's ?Medication ?Instructions ?Recorded foot inserts #1 ea 12/04/21 bed rail #1 ea 01/05/24 adult diapers briefs #240 ea 01/06/24 hospital bed #1 ea 04/26/24 purewick #1 ea 06/14/24 air pressure mattress #1 ea 11/23/24 atorvastatin 40 mg tablet 40 mg PO BEDTIME 90 days #90 tabs 11/23/24 famotidine 20 mg tablet 20 mg PO BID@0900,1200 90 da ys 11/23/24 #180 tabs hydrocortisone 2.5 % topical cream 1 appl [place] BID-QID P RN hemorrhoids 11/23/24 with perineal applicator 2 weeks #30 grams (Proctosol HC) lorazepam 1 mg tablet 1 mg PO BID PRN anxiety 30 d ays 11/23/24 #60 tabs metoprolol succinate 25 mg 12.5 mg (1/2 x 25 mg) PO DA FERNANDO #30 11/23/24 tablet,extended release 24 hr tabs mirtazapine 15 mg tablet 15 mg PO BEDTIME 90 days #90 tabs 11/23/24 oxycodone 20 mg tablet 20 mg PO BID PRN pain 30 day s #60 11/23/24 tabs pantoprazole 40 mg tablet,delayed 40 mg PO DAILY@0630 90 days #90 11/23/24 release tabs pregabalin 75 mg capsule 75 mg PO BID 30 days #60 cap s 11/23/24 quetiapine 50 mg tablet 100 mg (2 x 50 mg) PO BID 30 days 11/23/24 #120 tabs temazepam 15 mg capsule 15 mg PO BEDTIME PRN sleep 3 0 days 11/23/24 #30 caps nitrofurantoin macrocrystal 100 mg 100 mg PO BID 7 day s #14 caps 12/08/24 capsule cefuroxime axetil 250 mg tablet 250 mg PO BID 7 days # 14 tabs 12/12/24 Allergies Allergy/AdvReac Type Severity Reaction Status Date / Time No Known Allergies Allergy Verified 12/11/24 18:57 Review of Systems 2 Review of Systems: Yes all other systems are reviewed and are negative Constitutional: Constitutional: Denies fatigue and Denies fever(s) Cardiovascular: Cardiovascular: Denies chest pain and Denies dyspnea Respiratory: Respiratory: Denies dyspnea Gastrointestinal: Gastrointestinal: Denies abdominal pain, Denies nausea and Denies vomiting Endocrine: Endocrine: Denies fatigue PMFSH Past Medical History Attestation statement: The following information was validated with the patient. Medical History Pubic ramus fracture Moderate protein-calorie malnutrition Closed compression fracture of thoracic vertebra Aspiration pneumonia Closed fracture of right hip Stage 4 pressure ulcer Recurrent Clostridioides difficile diarrhea External hemorrhoids Epidermal inclusion cyst White coat syndrome with high blood pressure but without hypertension Dry eyes Hyponatremia Hypercalcemia Diarrhea Renal calculi Constipation by delayed colonic transit GERD (gastroesophageal reflux disease) UTI (urinary tract infection) Villous adenoma of colon Insomnia Raynauds disease Anxiety Surgical History Hip fracture, right History of bronchoscopy History of tonsillectomy Family History Family History Father Medical history unknown Mother Dementia Alzheimers disease Mental health disorder Brother Leukemia Sister Medical history unknown Social History Social History Household Members: None Household Members Other:: halfway Housing: Apartment Housing Other:: Leah Elkins prior to admission. Do you presently have visiting nurse or other home services: Yes (DIRECTOR CLINICAL DATA) Alcohol intake: former Comment: pt bed/chair bound at baseline Patient Tobacco Use Status: Former Tobacco user Tobacco use type: Cigarette e-Cigarette/Vaping Use: Never Used Second Hand Smoke Exposure: No Advance Directives Date on File: 11/23/22 service: No Current occupational status: retired Cognitive needs: No Hearing needs: No Vision needs: Yes Physical Exam 2 Vital Signs: Vital Signs: Last Vital Signs Temp 98.1 F 12/12/24 11:24 Pulse 71 12/12/24 11:24 Resp 17 12/12/24 11:24 BP 131/69 12/12/24 11:24 Pulse Ox 94 12/12/24 11:24 O2 Del Method Room Air 12/12/24 11:24 BMI result Body Mass Index 19.0 Const: Other: Alert Orientation/consciousness: patient oriented x3 Resp: Effort & Inspection: normal respiratory effort Cardio: Other: Normal peripheral perfusion Skin: Other: Warm dry no rash Neuro: General: patient oriented x3 and CN's II-XI intact bilaterally Psych: Other: Uncooperative at times, extremely anxious Course Course Course Narrative: Spoke with Merlene from case management, she spoke with the patient. The patient has services to the home for 7 hours every day, she has VNA the comes in once a week. The patient is wheelchair-bound. After discussion, the patient understands she needs to keep the Lou in place. In the morning, case management we will be reaching out to [facility], to relate to them that the patient we will have a Lou in place, they will also expedite Urology follow up. These interventions we will be organize prior to the patient being discharged back home in the morning. The patient is in agreement with the plan. 12/12/2024 0829 Rachel Khoury PA-C ---> Observation continues. Case management continues to follow. 12/12/2024 0930 Rachel Khoury PA-C ---> Observation care revealed the the patient does not meet medical necessity for hospitalization. Final disposition of home with VNA services discussed with the patient who verbalized understanding and agreement. Patient completed observation care at 0930 on 12/12/2024, total time spent in observation care was 11 hours and 33 minutes. Medications Administered Discontinued Medications Generic Name Dose Route Start Last Admin Trade Name Freq PRN Reason Stop Dose Admin Atorvastatin Calcium 40 mg 12/11/24 23:15 12/11/24 23:25 Atorvastatin Calcium 40 Mg Tablet PO 40 mg BEDTIME DEEPALI Administration Cephalexin HCl 500 mg 12/11/24 20:53 12/11/24 21:51 Cephalexin 500 Mg Capsule PO 12/11/24 20:54 500 mg ONCE ONE Administration Cephalexin HCl 500 mg 12/12/24 09:00 12/12/24 08:02 Cephalexin 500 Mg Capsule PO 12/12/24 09:01 500 mg ONCE ONE Administration Famotidine 20 mg 12/12/24 09:00 12/12/24 11:59 Famotidine 20 Mg Tablet PO 20 mg BID@0900,1200 DEEPALI Administration Sodium Chloride 1,000 mls @ 999 mls/hr 12/12/24 07:06 12/12/24 09:05 Ns IV 12/12/24 08:06 Infused .Q1H1M STA Infusion Lorazepam 1 mg 12/11/24 22:50 12/11/24 23:24 Lorazepam 1 Mg Tablet PO 12/11/24 22:51 1 mg ONCE ONE Administration Mirtazapine 15 mg 12/11/24 22:50 12/11/24 23:25 Mirtazapine 15 Mg Tablet PO 12/11/24 22:51 15 mg ONCE ONE Administration Mirtazapine 15 mg 12/11/24 23:15 12/11/24 23:44 Mirtazapine 15 Mg Tablet PO Not Given BEDTIME DEEPALI Oxycodone HCl 20 mg 12/11/24 23:14 12/11/24 23:25 Oxycodone Hcl Immed Release 5 Mg Tablet PO 20 mg BID PRN Administration pain, moderate Pregabalin 75 mg 12/11/24 23:15 12/12/24 08:02 Pregabalin 75 Mg Capsule PO 75 mg BID DEEPALI Administration Quetiapine Fumarate 100 mg 12/11/24 23:15 12/12/24 08:01 Quetiapine Fumarate 100 Mg Tablet PO 100 mg BID DEEPALI Administration Temazepam 15 mg 12/11/24 23:12 12/12/24 00:50 Temazepam 15 Mg Capsule PO 15 mg BEDTIME PRN Administration Sleep Medical Decision Making Medical Decision Making MDM Narrative: 73-year-old female with a history of chronic microcytic anemia, Raynaud's GERD, mood disorder, stress induced cardiomyopathy, recurrent urinary tract infections, recurrent C diff decubitus ulcers who is followed by wound care with services to the home, who is primarily wheelchair-bound, who presents with urinary retention. Patient states she had urinary retention last week, she was about to be catheterized, when she is able to void on her own. Today, she has not been able to void since 3:00 a.m.. Denies abdominal pain, nausea, vomiting. Problem: Wheelchair-bound, chronic UTIs, chronic ulcerations History: Per patient I have considered the following differential diagnoses: Urinary retention, UTI, renal colic, pyelonephritis Plan: The patient is here with a urinary retention, a Lou catheter has been placed, she had over a L in the bladder. We will be screening basic labs and obtaining a urine sample, she will likely have a urinary tract infection. She has no abdominal pain, back pain or fever to suggest either renal colic and/or pyelonephritis. She does not require imaging. The patient is extremely displeased with the having a Lou in place, she initially wanted it removed. I explained to the patient that she needs to keep it in place, until she can follow up with Urology. She is concerned about managing her care with the Lou catheter. We have come to an agreement that she will be held over for case management and physical therapy. I have independently reviewed the following tests: Labs: Slight leukocytosis, not anemic, no electrolyte abnormality, urine infected Lab Data 12/12/24 07:30 12/12/24 07:30 Labs: Lab Results 12/11/24 12/11/24 12/12/24 Range/Units 19:54 20:03 07:30 WBC 14.4 H 9.0 (4.8-10.8) X10*3/uL RBC 4.14 L 4.11 L (4.20-5.50) X10*6/uL Hgb 11.4 L 11.2 L (12.0-16.0) g/dl Hct 35.3 L 35.2 L (37.0-47.0) % MCV 85.3 85.6 (80.0-98.0) fL MCH 27.5 27.3 (27.0-33.0) pg MCHC 32.3 31.8 (31.0-35.0) g/dl RDW 15.5 15.4 (11.0-16.0) % Plt Count 522 H D 519 H (160-400) X10*3/uL MPV 9.2 L 8.8 L (9.4-12.3) fL Immature Gran % (Auto) 1.1 H 0.2 (0.0-0.4) % Neut % (Auto) 72.0 59.1 (45-73) % Lymph % (Auto) 16.4 L 27.9 (20-40) % [place] % (Auto) 8.6 10.6 (2-11) % Eos % (Auto) 1.6 1.9 (0-4) % Baso % (Auto) 0.3 0.3 (0-2) % Lymph # (Auto) 2.4 2.5 (1.2-4.9) X10*3/uL [place] # (Auto) 1.2 1.0 (0.1-1.2) X10*3/uL Eos # (Auto) 0.2 0.2 (0.0-0.4) X10*3/uL Baso # (Auto) 0.0 0.0 (0.0-0.2) X10*3/uL Abs Immat Gran (auto) 0.16 H 0.02 (0.00-0.03) X10*3/uL Absolute Neuts (auto) 10.4 H 5.3 (2.0-8.3) x10*3/uL Absolute Nucleated RBC 0.000 0.000 (0.0-0.012) X10*3/uL Nucleated RBC % (auto) 0.0 0.0 (0.0-0.2) /100WBC Sodium 139 141 (135-145) mmol/L Potassium 3.7 3.7 (3.3-5.1) mmol/L Chloride 106 106 (96-108) mmol/L Carbon Dioxide 25 26 (22-29) mmol/L Anion Gap 12 13 (12-20) BUN 29 H 24 H (9-16) mg/dL Creatinine 0.85 0.79 (0.5-1.4) mg/dL Estim Creat Clear Calc 39.9 42.9 Estimated GFR > 60 > 60 Random Glucose 108 89 (60-115) mg/dL Lactic Acid 0.9 (0.5-2.0) mmol/L Calcium 9.4 9.5 (8.4-10.2) mg/dL Magnesium 2.3 (1.6-2.6) mg/dL Total Bilirubin 0.2 0.3 (0.0-1.0) mg/dL AST 30 29 (5-31) U/L ALT 14 11 (0-31) U/L Alkaline Phosphatase 122 H 113 (39-117) U/L Total Protein 7.2 6.5 (6.5-8.0) g/dL Albumin 3.8 3.6 (3.5-5.0) g/dL Urine Color Yellow Urine Appearance Turbid Urine pH 6.5 (5.0-9.0) Ur Specific [place] 1.010 (1.005-1.025) Urine Protein 30 (1+) H (Neg-Trace) mg/dL Urine Glucose (UA) Negative (Negative) mg/dL Urine Ketones Negative (Negative) mg/dL Urine Blood Large (3+) H (Negative) Urine Nitrite Negative (Negative) Ur Leukocyte Esterase Large (3+) H (Negative) Urine RBC >20 H (0-2) /HPF Urine WBC >50 H (0-5) /HPF Ur Squamous Epith Cells 0-2 (0-2) /HPF Urine Bacteria 4+ (None Seen) Hyaline Casts 6-10 (0-2) /LPF Urine Yeast Present Discharge Plan Discharge Clinical Impression: Acute urinary retention, Urinary tract infection Patient Disposition: Home, Self-Care Instructions: Urinary Tract Infection in Women (DC), Acute Urinary Retention in Women (ED) Additional Instructions: Take your antibiotic as prescribed. Follow up with your primary care provider and the urologist. Return to the emergency department immediately if your symptoms worsen or if you develop any numbness, tingling, dizziness, shortness of breath, difficulty breathing, chest pain, blurry vision, loss of vision, nausea, vomiting, abdominal pain, fever, chills, back pain, or any other complaints. Please see the information below about our Patient Portal. If you are not yet enrolled in the [facility] Patient Portal, you will receive an enrollment email invitation following your visit to any [facility] setting. You may also self-enroll in the Patient Portal by visiting our website: [email or web address] The following information is required to access the Patient Portal: - Your [facility] Medical Record Number - Your personal home email address (must match what is in your electronic medical record, Registration staff can assist with this) - Name - Date of Capabilities of the Patient Portal: - Message some providers - View upcoming appointments - Access your health summary, medical history, and visit history - View current conditions and allergies - View procedure and lab results - View your medications, including guidelines, side effects, and precautions - Complete pre-appointment questionnaires requested by your provider - Ready summary reports of your office visits and procedures To access the Patient Portal Mobile Andre, follow these directions: - Search SecureLink in the Andre Store or Google JumpLinc Store - Download the Andre - Search for [facility] - Enter your login/password Prescriptions: New cefuroxime axetil 250 mg tablet 250 mg PO BID 7 Days Qty: 14 0RF No Action (DME) foot inserts See Rx Instructions .Route .MEDSUPPLY Qty: 1 0RF Rx Instructions: As directed (DME) bed rail See Rx Instructions .Route .MEDSUPPLY Qty: 1 0RF Rx Instructions: As directed (DME) adult diapers briefs Small See Rx Instructions .Route .MEDSUPPLY Qty: 240 11RF Rx Instructions: As directed (DME) hospital bed Kit See Rx Instructions .Route Qty: 1 0RF Rx Instructions: As directed (DME) darnell See Rx Instructions .Route .MEDSUPPLY Qty: 1 0RF Rx Instructions: As directed nitrofurantoin macrocrystal 100 mg capsule 100 mg PO BID 7 Days Qty: 14 0RF Rx Instructions: must administer with a meal/food pregabalin 75 mg capsule 75 mg PO BID 30 Days Qty: 60 0RF oxycodone 20 mg tablet 20 mg PO BID PRN (Reason: pain) 30 Days Qty: 60 0RF Rx Instructions: Partial Fill upon patient request. quetiapine 50 mg tablet 100 mg PO BID 30 Days Qty: 120 5RF metoprolol succinate 25 mg tablet extended release 24 hr 12.5 mg PO DAILY Qty: 30 5RF lorazepam 1 mg tablet 1 mg PO BID PRN (Reason: anxiety) 30 Days Qty: 60 5RF mirtazapine 15 mg tablet 15 mg PO BEDTIME 90 Days Qty: 90 1RF famotidine 20 mg tablet 20 mg PO BID@0900,1200 90 Days Qty: 180 2RF atorvastatin 40 mg tablet 40 mg PO BEDTIME 90 Days Qty: 90 1RF pantoprazole 40 mg tablet,delayed release (DR/EC) 40 mg PO DAILY@0630 90 Days Qty: 90 1RF temazepam 15 mg capsule 15 mg PO BEDTIME PRN (Reason: sleep) 30 Days Qty: 30 5RF hydrocortisone [Proctosol HC] 2.5 % cream with perineal applicator 1 appl KY BID-QID PRN (Reason: hemorrhoids) 14 Days Qty: 30 0RF (DME) air pressure mattress See Rx Instructions .Route .MEDSUPPLY Qty: 1 0RF Rx Instructions: As directed Referrals: Savita ROWLEY [Outside] Gabriel Banegas MD [Physician, Urology] - 01/10/25 8:30 am Referral Note: Follow up appointment needs to be at least 4 weeks. If you are unable to make this appointment please call the office to reschedule. Aniyah Smith MD [Primary Care Provider, Internal Medicine] Interventions: ED Discharge Assessment Last Done: 12/12/24 11:24 Discharge Date/Time: 12/12/24 12:08 Print Language: Vietnamese
--- NOTE | 2024-12-12 07:12 | PC.NURSE ---
BP soft. see vitals charted. pt denies symptoms adamantly stating I am going home today! MD Stahl notified. labs and IVF ordered
[2024-12-12 07:36] LABS: MANUAL DIFF FLAG NO
[2024-12-12 07:38] LABS: Hematocrit 35.2 % (37.0-47.0); Hemoglobin 11.2 g/dl (12.0-16.0); Imm Gran Abs Auto 0.02 X10*3/uL (0.00-0.03); Imm Gran Pct Auto 0.2 % (0.0-0.4); Lymphocytes Absolute Auto 2.5 X10*3/uL (1.2-4.9); Mean Corpuscular HGB Conc 31.8 g/dl (31.0-35.0); Mean Corpuscular Hemoglobin 27.3 pg (27.0-33.0); Mean Corpuscular Volume 85.6 fL (80.0-98.0); NRBC Abs Auto 0.000 X10*3/uL (0.0-0.012); NRBC Pct Auto 0.0 /100WBC (0.0-0.2); Platelet Count 519 X10*3/uL (160-400); Red Blood Count 4.11 X10*6/uL (4.20-5.50); White Blood Count 9.0 X10*3/uL (4.8-10.8)
[2024-12-12 07:53] LABS: Alanine Aminotransferase 11 U/L (0-31); Albumin Level 3.6 g/dL (3.5-5.0); Alkaline Phosphatase 113 U/L (39-117); Anion Gap 13 (12-20); Aspartate Amino Transferase 29 U/L (5-31); Blood Urea Nitrogen 24 mg/dL (9-16); Calcium 9.5 mg/dL (8.4-10.2); Carbon Dioxide 26 mmol/L (22-29); Chloride 106 mmol/L (96-108); Creatinine Clr Calc Pharmacy 42.9; Estimated Glomerular Filt Rate > 60; Potassium 3.7 mmol/L (3.3-5.1); Sodium 141 mmol/L (135-145); Total Protein 6.5 g/dL (6.5-8.0)
--- NOTE | 2024-12-12 09:38 | MHC.CM.ED ---
Patient remains in ER overflow. Received verification patient is active with [facility]. #16 omani mcdonald inserted on 12/11. Follow up appointment arranged with Dr Banegas's office on 01/10 at 830am. Spoke with patient's EDUCATION SPECIALIST, Miguelina. Miguelina will meet patient at her home after d/c. [facility] with chart. Patient, Maddison Mcintyre RN and Rachel SYKES aware. Continue to monitor for d/c needs.
--- NOTE | 2024-12-12 10:50 | PC.NURSE ---
Addendum entered by Maddison Carey RN 12/12/24 10:57: Pt with 16F mcdonald catheter--placed prior to this RNs shift. Mcdonald is intact and draining at this time. Urine is harper in color. Pt to be d/c'd with mcdonald and will follow up with Dr. Norman on 01/10/25. Original Note: Care of Pt at change of shift. This RN and RN Frank worked to establish IV access (RAC) and blood labs this AM d/t low BP and new orders placed by Dr. Stahl. Pt received 1L IVF. PT evaluated Pt at bedside per plan of care. BP with positive increase and Pt reports feeling well. Spoke with covering ONEL Khoury in regards to duplicate order for U/A. Verbal order received to hold off as U/A was completed last night. Pt has been cleared for D/C and is awaiting for scheduled 1130 BLS transport home.
== END 2024-12-12 12:08 | disposition home or self-care (01) ==
PROVIDERS: Emergency Medicine Emergency Medical Services; Physician Assistant Medical; Emergency Provider Emergency Medicine; PCP Internal Medicine
DX: R33.9 Retention of urine, unspecified (principal); N39.0 Urinary tract infection, site not specified; R26.81 Unsteadiness on feet; R11.0 Nausea; Z87.891 Personal history of nicotine dependence; Z79.899 Other long term (current) drug therapy
CPT/HCPCS: 36415; 51798; 80053; 81001; 83605; 83735; 85025; 87086; 96360; 96361; 97162; 99285

== ENCOUNTER 2025-01-03 13:30 | Outpatient (RCR) | payer MEDICARE, MEDICAID, SELFPAY | END 2025-01-03 16:46 | disposition home or self-care (01) | LOC: HO.WCC 13:30 | PROVIDERS: PCP Internal Medicine; Visit Provider Surgery | DX: L89.154 Pressure ulcer of sacral region, stage 4 (principal); E44.0 Moderate protein-calorie malnutrition; Z96.0 Presence of urogenital implants; Z79.891 Long term (current) use of opiate analgesic; Z79.899 Other long term (current) drug therapy | CPT/HCPCS: 11042; 97597; 99212; 99213 ==

== ENCOUNTER 2025-01-17 09:46 | Outpatient (AMB) | payer MEDICARE, MEDICAID, SELFPAY ==
--- NOTE | 2025-01-17 09:57 | A.OFFVIS_ITS ---
Intake Visit Reasons: VT Intake Note: Patient is present for follow up for VT Urology meds : none Blood thinner : none Firmware Manager Required: No Accompanied by: Self / Same As Patient Allergies No Known Allergies Allergy (Verified 01/17/25 09:58) HPI Comments Details: Charmaine is a very pleasant 72 year old female patient of Dr. Banks was accompanied by her healthcare proxy Mony at today's office visit. She has a past medical history of hemorrhoids, hyponatremia, hypercalcemia, nephrolithiasis, constipation, GERD, insomnia, Raynaud's disease, and anxiety. Had presented to ER with retention Mcdonald catheter placed Here for voiding trial Prior broken hip so unable to sit on a commode She will call to let us know she is urinating at home Start UTI package medications including vitamin-C, methenamine, esterase Recurrent urinary tract infection Klebsiella extended spectrum beta lactamase Multiple instances during 2024 Nephrolithiasis No prior renal calculi Imaging - 09/25 CT scan bilateral 5 mm stones - 10/26 renal ultrasound with increase in stone burden bilateral - 03/28 renal ultrasound multiple echogenic foci 3 mm right side, 8 mm left side Currently nonsymptomatic Targets 60 oz fluid per day Genitourinary syndrome of menopause Urinary urgency Discomfort around urethra On exam has atopic changes Initiate Estr[facility] Medical History Pubic ramus fracture Moderate protein-calorie malnutrition Closed compression fracture of thoracic vertebra Aspiration pneumonia Closed fracture of right hip Stage 4 pressure ulcer Recurrent Clostridioides difficile diarrhea External hemorrhoids Epidermal inclusion cyst White coat syndrome with high blood pressure but without hypertension Dry eyes Hyponatremia Hypercalcemia Diarrhea Renal calculi Constipation by delayed colonic transit GERD (gastroesophageal reflux disease) UTI (urinary tract infection) Villous adenoma of colon Insomnia Raynauds disease Anxiety Surgical History Hip fracture, right History of bronchoscopy History of tonsillectomy Family History Father Medical history unknown Mother Dementia Alzheimers disease Mental health disorder Brother Leukemia Sister Medical history unknown Social History Household Members: None Household Members Other:: long term Housing: Apartment Housing Other:: Leah Elkins prior to admission. 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 TECHNICIAN) Alcohol intake: former Comment: pt bed/chair bound at baseline Patient Tobacco Use Status: Former Tobacco user Tobacco use type: Cigarette e-Cigarette/Vaping Use: Never Used Second Hand Smoke Exposure: No Advance Directives Date on File: 11/23/22 service: No Current occupational status: retired Cognitive needs: No Hearing needs: No Vision needs: Yes Review of Systems Const Denies chills and Denies fever(s) Card Reports no additional complaints and Denies syncope Resp Denies cough GI Denies abdominal pain and Denies heartburn Reports as per HPI and Denies change in libido Neuro Denies syncope Psych Denies change in libido Endo Denies change in libido Physical Exam Const General: cooperative, healthy appearing, comfortable and no acute distress Orientation/consciousness: patient oriented x3 HEENT Face and sinus: Yes normal facial exam Mouth: moist mucous membranes Neck Neck: Yes normal visual inspection, Yes full ROM and Yes trachea midline Chest Chest palpation & inspection: normal inspection of the chest Resp Effort & Inspection: normal respiratory effort, able to speak in complete sentences and no respiratory distress GI Inspection: Yes normal to inspection Back/Spine/Pelvis Cervical Spine: normal cervical lordosis Thoracic/Lumbar Spine: thoracic and lumbar spine normal to inspection Skin General skin exam: no rashes or lesions noted Neuro General: patient oriented x3, gait normal, tone normal and moves all extremities Extrem General: Yes normal to inspection and Yes capillary refill normal Office Procedures Bladder/Catheter Procedure Details: Patient presents to office for voiding trial s/p Urinary retention. 120mls sterile water instilled through catheter, patient tolerated well. Removed 16fr mcdonald catheter, patient tolerated removal well. Patient unable to void. Patient saw Dr. Banegas for visit and will be sent home and will call office if she continues to have issues voiding. [id number]-[id number] of Bladder Procedure code (CPT) selection complete Assessment & Plan Assessment & Plan (1) Urinary retention: Code(s): R33.9 - Retention of urine, unspecified Category: Medical (2) UTI (urinary tract infection): Code(s): N39.0 - Urinary tract infection, site not specified Category: Medical Plan Two month follow-up PVR Orders: Orders AMB Bladder/Catheter Procedure Today R33.9 - Retention of urine, unspecified Medications: New methenamine hippurate 1 g PO DAILY 90 tabs 1RF 90 days Patient Instructions: This note is constructed using voice recognition software. While every effort has been made to ensure accuracy process control specialist errors may have been included. Imaging studies, laboratory and physical exam results were discussed and reviewed in detail. No major barriers to patient understanding were identified. An opportunity to ask questions regarding the treatment plan was provided. All questions were answered. The patient expressed understanding and agreement with the above treatment plan. The patient is aware they should contact our office by phone for worsening of their current condition or the appearance of new urologic symptoms. Compliance is encouraged with any medications and followup testing that is ordered. It is a privilege to participate in the urologic care of your patient. If you have any questions or concerns regarding treatment for the above conditions, or other urologic issues, please do not hesitate to contact me. The office telephone contact is [phone]. Sincerely, Dr Gabriel Banegas MD, [facility] - Urology Compassionate Specialist Care for the Genitourinary System Coding Level of Care Code Est Pt Level 4 (67997) Diagnoses Urinary retention R33.9 UTI (urinary tract infection) N39.0 CPT Codes Bladder/Catheter Procedure - CPT: 06114-Motdpubxnb of Bladder ([id number])
--- OUTSIDE RECORDS SUMMARY | 2025-01-17 10:18 | XMS_ITS | Clinical Summary ---
Author Organization [facility] Address [address] [place], [place] [address] Phone Care Team Providers Care Television Engineer Name Role Phone Pcp, Unknown Primary Care Provider Unavailabl e Social History Tobacco Use Types Packs/Day Years Used Date Smoking Tobacco: Never Assessed Education Answer Date Recorded Are you interested in more education? Not on marita e 09/15/2023 Are you concerned about learning? Not on file 09/15/2023 No 09/15/2023 No 09/15/2023 Digital Access Answer Date Recorded No 09/15/2023 No 09/15/2023 Reliable internet access at home? Not on file 09/15/2023 Device with a working camera? Not on file Comments Unknown Sex and Gender Information Value Date Recorded Sex Assigned at Not on file Legal Sex Female 12:28 PM EDT Gender Identity Not on file Sexual Orientation Not on file Plan of Treatment Not on file Medical Devices Not on file Insurance [place] [id number] [facility] MEDEX SUPPLEMENT MEDICARE PART A & B [facility] MEDEX SUPPLEMENT MEDICARE PART A & B [employer] MEDEX SUPPLEMENT MEDICARE PART A & B [employer] MEDEX SUPPLEMENT MEDICARE PART A & B [employer] MEDEX SUPPLEMENT MEDICARE PART A & B [employer] MEDEX SUPPLEMENT MEDICARE PART A & B [employer] MEDEX SUPPLEMENT MEDICARE PART A & B [employer] MEDEX SUPPLEMENT MEDICARE PART A & B [facility] MEDEX SUPPLEMENT Care Teams Television Engineer Relationship Specialty Start Date End Date Pcp, Unknown PCP - General 10/01/20 Additional Source Comments The information contained in this document represents components of the legal health record. It is not the complete legal health record.[facility]
--- OUTSIDE RECORDS SUMMARY | 2025-01-17 10:19 | XMS_ITS | Clinical Summary ---
Author Organization [facility] Facility Address [address] [place] [address] Care Team Providers Care Chiropractic Teacher Name Role Phone Aniyah Smith MD Primary Care Provider [phone] Social History Tobacco Use Types Packs/Day Years Used Date Smoking Tobacco: Never Assessed Comments Unknown Sex and Gender Information Value Date Recorded Sex Assigned at Not on file Legal Sex Female 8:41 AM EDT Gender Identity Not on file Sexual Orientation Not on file Plan of Treatment Health Maintenance Due Date Last Done Comments Pneumococcal Vaccine: 50+ Ye ars (1 of 2 - PCV) [birth year]21/1969 Influenza Vaccine (#1) 2025 Hepatitis B Vaccine Aged Out No longe r eligible based on patient's age [place] [address] Medicare [facility] Medicare [facility] Care Teams Chiropractic Teacher Relationship Specialty Start Date End Date Aniyah Smith MD [address] [place], [place] PCP - General Internal Medicine 08/24/22
--- OUTSIDE RECORDS SUMMARY | 2025-01-17 10:19 | XMS_ITS ---
Author Organization [facility] Care Team Providers Care Pharmacovigilance Safety Expert Name Role Phone Elder, Elli Junior Unavailable Unavailable Ottoniel FELT TIPPING MACHINE TENDER, Sandee Kendrick Unavailable Unavailable Keli Ocampo Unavailable Unavailable Allergies and adverse reactions No Known Allergies Care Team Name Role Address Phone Organization Dates Elli Zarate PCP [address], [place], [facility], [facility] (Office): : [facility] 10/15/2023 - 12/27/2023 Sandee Alcazar FELT TIPPING MACHINE TENDER [address] [address], [facility] (Office): [facility] 10/15/2023 - 12/27/2023 Keli Ocampo [place], [facility] Joao juan carlos [facility]ly [facility] 10/15/2023 - 12/27/2023 Immunizations Immunization Status Vaccine Details Vaccine Code CodeSystem Date Notes Covid-19 [id number] cancelled SARS-COV-2 (COVID-19) vaccine, mRNA, spike protein, LNP, preservative free, 50 mcg/0.5 mL dose 312 CVX created date: 10/18/2023 consent date: 10/18/2023 PVC20 completed Pneumococcal conjugate vaccine 20-valent (PCV20), polysaccharide [id number] conjugate, adjuvant, preservative free 216 CVX created date: 10/18/2023 administere d date: 03/09/2023 Influenza, high dose seasonal completed Influenza, high-dose, split virus, trivalent, injectable, preservative free 135 CVX created date: 10/18/2023 administere d date: 03/09/2023 Medications Section Medication Name Status Code CodeSystem Dose Route Frequency Admin Type Sig Text Start Date End Date Atorvastatin Calcium Oral Tablet 40 MG active 960520 RXNORM 1 tablet Oral at bedtime Routine Give 1 tablet by mouth at bedtim e for hdl 2023 - Pantoprazole Sodium Oral Tablet Delayed Release 40 MG active 146544 RXNORM 1 tablet Oral in the morning Routine Give 1 tablet by mouth in the mornin g for gerd 2023 - Famotidine Oral Tablet 20 MG active 729827 RXNORM 1 tablet Oral two times a day Routine Give 1 tablet by mouth two times a day for gerd 2023 - Metoprolol Tartrate Oral Tablet 25 MG active 324476 RXNORM 1 tablet Oral one time a day Routine Give 1 tablet by mouth one time a day for HTN 2023 - oxyCODONE HCl Oral Tablet 5 MG active 7081600 RXNORM 1 tablet Oral as needed PRN Give 1 tablet by mouth every 6 hours as needed for modera te pain 2023 - Culturelle Oral Capsule active 1 capsul e Oral in the morning Routine Give 1 capsul e by mouth in the mornin g for probio tic 2023 - Fleet Enema Enema 7-19 GM/118ML active 040709 RXNORM 1 dose Rectal as needed PRN Insert 1 dose rectal ly as needed for Consti pation (Step 3) as needed if no bowel moveme nt for 8 hours after bisaco dyl suppos itory. 2023 - Milk of Magnesia Suspension 400 MG/5ML active 413045 RXNORM 30 ml Oral as needed PRN Give 30 ml by mouth as needed for Consti pation (Step 1) As needed if no bowel moveme nt for three days. (Do not use for Hemodi alysis patien ts). 2023 - Acetaminophen Tablet 325 MG active 951780 RXNORM 2 tablet Oral as needed PRN Give 2 tablet by mouth every 6 hours as needed for Pain Pain Total dosage for acetam inophe n and medica tions that contai n acetam inophe n should not exceed 3 grams / 24 hours. AND Give 2 tablet by mouth every 6 hours as needed for Fever greate r than 100.0F Total dosage for acetam inophe n and medica tions that contai n acetam inophe n should not exceed 3 grams / 24 hours. 2023 - 475786 RXNORM 2 tablet Oral as needed PRN Give 2 tablet by mouth every 6 hours as needed for Pain Pain Total dosage for acetam inophe n and medica tions that contai n acetam inophe n should not exceed 3 grams / 24 hours. AND Give 2 tablet by mouth every 6 hours as needed for Fever greate r than 100.0F Total dosage for acetam inophe n and medica tions that contai n acetam inophe n should not exceed 3 grams / 24 hours. 2023 - Bisacodyl Suppository 10 MG active 770995 RXNORM 1 suppos itory Rectal as needed PRN Insert 1 suppos itory rectal ly as needed for If no bowel moveme nt for 8 hours after Milk of Magnes ia 2023 - Preparation H External Cream 1 % active n/a n/a Topical as needed PRN Apply to anus topica lly every 4 hours as needed for hemorr hoids 2023 - Mirtazapine Oral Tablet 7.5 MG active 199442 RXNORM 1 tablet Oral in the evening Routine Give 1 tablet by mouth in the evenin g for depres sami with weight loss 2023 - SEROquel Oral Tablet 25 MG active 490409 RXNORM 25 mg Oral at bedtime Routine Give 25 mg by mouth at bedtim e for anxiet y AND Give 25 mg by mouth every 12 hours as needed for anxiet y for 14 Days BID for anxiet y 2023 - 413625 RXNORM 25 mg Oral as needed PRN Give 25 mg by mouth at bedtim e for anxiet y AND Give 25 mg by mouth every 12 hours as needed for anxiet y for 14 Days BID for anxiet y 11/16 LORazepam Oral Tablet 1 MG active RXNORM 1 mg Oral three times a day Routine Give 1 mg by mouth three times a day for anxiet y 2023 - Cranberry Oral Capsule active 425 mg Oral one time a day Routine Give 425 mg by mouth one time a day for freque nt UTIs relate d to MUSCLE WEAKNE SS (GENER ALIZED ) (M62.8 1) 2023 - Mental Status Section Date Assessment Total Score Description 12/27/2023 BIMS 15 cognitively int act CAM 0 No delirium ind icated PHQ-9 01 minimal depress ion 10/19/2023 BIMS 14 cognitively int act CAM 0 No delirium ind icated PHQ-9 01 minimal depress ion Problems Problem # Description Date of onset Resolved Date Code CodeSystem Concern Status 1 UNSPECIFIED FALL, INITIAL ENCOUNTER 10/16/[address] active 2 ANXIETY DISORDER, UNSPECIFIED 10/15/[address] active 3 ENTEROCOLITIS DUE TO CLOSTRIDIUM DIFFICILE, RECURRENT 10/15/[address] active 4 FRACTURE OF UNSPECIFIED PART OF NECK OF RIGHT FEMUR, SUBSEQUENT ENCOUNTER FOR CLOSED FRACTURE WITH ROUTINE HEALING 10/15/[address] active 5 INSOMNIA, UNSPECIFIED 10/15/[address] active 6 MUSCLE WEAKNESS (GENERALIZED) 10/15/[address] active 7 OTHER ABNORMALITIES OF GAIT AND MOBILITY 10/15/[address] active 8 OTHER LACK OF COORDINATION 10/15/[address] active 9 PAIN IN RIGHT HIP 10/15/[address] active 10 UNSPECIFIED MOOD [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 10/15/[address] active 11 UNSPECIFIED PROTEIN-CALORIE MALNUTRITION 10/15/[address] active 12 UNSTEADINESS ON FEET 10/15/[address] active Reason for Referral No Reasons for Referral Entered Social History Social History Observation Description Start Date End Date Code Code System Current Smoking Status Tobacco smoking consumption unknown 214667490 SNOMED CT Sex Assigned At Female 1950 02652-8 [facility] Gender Identity Vital Signs Code Code System Vitals Name Values and Units Timing Information 63302-0 [facility] Pain Level Value=0.0 12/27/2023 95220-1 [facility] Weight Value=85.2 Units=Lbs 11/05 9279-1 [facility] Respiratory Rate Value=18.0 Units=/m in 10/21/2023 8462-4 [facility] Blood Pressure-Diastolic Value=74 Un its=mmHg 10/21/2023 8480-6 [facility] Blood Pressure-Systolic Tlahi=226 Un its=mmHg 10/21/2023 8310-5 [facility] Body Temperature Value=99.4 Units= F 10/21/2023 8867-4 [facility] Heart rate Value=96.0 Units=/min 57368-0 [facility] O2 % dC Oximetry Value=95.0 Units= % 10/21/2023 8302-2 [facility] Height Value=60.0 Units=Inches 10/15/2023
== END 2025-01-17 10:47 | disposition home or self-care (01) ==
LOC: HO.HUSH 09:46
PROVIDERS: PCP Internal Medicine; Visit Provider Urology
DX: R33.9 Retention of urine, unspecified (principal); N39.0 Urinary tract infection, site not specified
CPT/HCPCS: 51700; 99214

== ENCOUNTER → 2025-01-17 09:46 | Outpatient (BNVA) | payer MEDICARE, MEDICAID, SELFPAY | PROVIDERS: PCP Internal Medicine; Visit Provider Urology | DX: R33.9 Retention of urine, unspecified (principal); N39.0 Urinary tract infection, site not specified; Z46.6 Encounter for fitting and adjustment of urinary device; Z93.50 Unspecified cystostomy status | CPT/HCPCS: 51700; 99212 ==

== ENCOUNTER 2025-03-19 14:39 | Emergency (ER) | payer MEDICARE, MEDICAID, SELFPAY ==
[2025-03-19 15:15] VITALS: BP 163/81; BP 170/100; PULSE 85; PULSE 88; RESP 18; TEMP 36.6; O2SAT 94; O2SAT 96; BMI 20.1
--- OUTSIDE RECORDS SUMMARY | 2025-03-19 15:25 | XMS_ITS | Clinical Summary ---
Author Organization [facility] Address [address] [place], [place] [address] Phone Care Team Providers Care Case Specialist Name Role Phone Pcp, Unknown Primary Care [...] Insurance [place] A [place] [id number] [facility] MEDEX SUPPLEMENT MEDICARE PART A & B [facility] MEDEX SUPPLEMENT MEDICARE PART A & B [employer] MEDEX SUPPLEMENT MEDICARE PART A & B [employer] MEDEX SUPPLEMENT MEDICARE PART A & B [employer] MEDEX SUPPLEMENT MEDICARE PART A & B [employer] MEDEX SUPPLEMENT MEDICARE PART A & B [employer] MEDEX SUPPLEMENT MEDICARE PART A & B [employer] MEDEX SUPPLEMENT MEDICARE PART A & B [facility] MEDEX SUPPLEMENT Care Teams Case Specialist Relationship Specialty Start Date End Date Pcp, Unknown PCP - General 10/01/20 Additional Source Comments The information contained in this document represents components of the legal health record. It is not the complete legal health record.[facility]
--- OUTSIDE RECORDS SUMMARY | 2025-03-19 15:25 | XMS_ITS | Clinical Summary ---
Author Organization [facility] Facility Address [address] [place] [address] Care Team Providers Care Vending Machine Attendant Name Role Phone Aniyah Smith MD Primary Care Provider [phone] Social History Tobacco Use Types Packs/Day Years [...] patient's age to complete [place] [address] Medicare [facility] Medicare [facility] Care Teams Vending Machine Attendant Relationship Specialty Start Date End Date Aniyah Smith MD [address] [place], [place] PCP - General Internal Medicine 08/24/22
[2025-03-19 15:40] LABS: MANUAL DIFF FLAG NO
[2025-03-19 15:51] LABS: Hematocrit 34.9 % (37.0-47.0); Hemoglobin 10.7 g/dl (12.0-16.0); Imm Gran Abs Auto 0.02 X10*3/uL (0.00-0.03); Imm Gran Pct Auto 0.3 % (0.0-0.4); Lymphocytes Absolute Auto 2.4 X10*3/uL (1.2-4.9); Mean Corpuscular HGB Conc 30.7 g/dl (31.0-35.0); Mean Corpuscular Hemoglobin 26.2 pg (27.0-33.0); Mean Corpuscular Volume 85.3 fL (80.0-98.0); NRBC Abs Auto 0.000 X10*3/uL (0.0-0.012); NRBC Pct Auto 0.0 /100WBC (0.0-0.2); Platelet Count 375 X10*3/uL (160-400); Red Blood Count 4.09 X10*6/uL (4.20-5.50); White Blood Count 7.8 X10*3/uL (4.8-10.8)
--- NOTE | 2025-03-19 15:53 | ED_ITS ---
HPI - Female Genitourinary General Chief complaint: Urogenital-Female Stated complaint: unable to void Time Seen by Provider: 03/19/25 17:09 Source: patient, RN notes reviewed and old records reviewed Mode of arrival: EMS Limitations: no limitations History of Present Illness ED Provider: Megan HPI Narrative: 74-year-old female with a past medical history significant for chronic microcytic anemia, Raynaud's disease, GERD, mood disorder, the stress induced cardiomyopathy, recurrent C diff and decubitus ulcers presents for evaluation of inability to urinate. Patient reports that she has not been able to urinate since 3:00 a.m. this morning This has happened once in the past and she had a Lou catheter placed for 5 weeks that was eventually removed by Dr. Banegas The patient reports lower abdominal pain and pressure. She did not noticed any burning with urination prior to this onset of retention. Denies any fevers, chills. No other complaints or concerns at this time Related Data Previous Rx's ?Medication ?Instructions ?Recorded foot inserts #1 ea 12/04/21 bed rail #1 ea 01/05/24 adult diapers briefs #240 ea 01/06/24 hospital bed #1 ea 04/26/24 purewick #1 ea 06/14/24 air pressure mattress #1 ea 11/23/24 atorvastatin 40 mg tablet 40 mg PO BEDTIME 90 days #90 tabs 11/23/24 famotidine 20 mg tablet 20 mg PO BID@0900,1200 90 da ys 11/23/24 #180 tabs hydrocortisone 2.5 % topical cream 1 appl MA BID-QID P RN hemorrhoids 11/23/24 with perineal applicator 2 weeks #30 grams (Proctosol HC) lorazepam 1 mg tablet 1 mg PO BID PRN anxiety 30 d ays 11/23/24 #60 tabs metoprolol succinate 25 mg 12.5 mg (1/2 x 25 mg) PO DA FERNANDO #30 11/23/24 tablet,extended release 24 hr tabs mirtazapine 15 mg tablet 15 mg PO BEDTIME 90 days #90 tabs 11/23/24 pantoprazole 40 mg tablet,delayed 40 mg PO DAILY@0630 90 days #90 11/23/24 release tabs quetiapine 50 mg tablet 100 mg (2 x 50 mg) PO BID 30 days 11/23/24 #120 tabs temazepam 15 mg capsule 15 mg PO BEDTIME PRN sleep 3 0 days 11/23/24 #30 caps pregabalin 150 mg capsule 150 mg PO BID 30 days #60 ca ps 12/22/24 methenamine hippurate 1 gram tablet 1 g PO DAILY 90 da ys #90 tabs 01/17/25 estradiol 0.01% (0.1 mg/gram) See Rx Instructions vagi nal 2XW 30 02/16/25 vaginal cream days #42.5 grams oxycodone 20 mg tablet 20 mg PO BID PRN pain 30 day s #60 02/25/25 tabs cefuroxime axetil 250 mg tablet 250 mg PO Q12H #14 tab s 03/19/25 Allergies Allergy/AdvReac Type Severity Reaction Status Date / Time No Known Allergies Allergy Verified 03/19/25 15:16 Review of Systems 2 Constitutional: Constitutional: Denies body ache(s), Denies chills, Denies fever(s) and Denies headache(s) Eyes: Eyes: Denies irritation ENT: Denies headache(s) Cardiovascular: Cardiovascular: Denies chest pain and Denies dyspnea on exertion Respiratory: Respiratory: Denies cough and Denies dyspnea on exertion Gastrointestinal: Gastrointestinal: Reports abdominal pain, Denies nausea and Denies vomiting Genitourinary: Genitourinary: Reports urinary frequency, Reports difficulty voiding, Denies dysuria and Reports pelvic pain Neurologic: Denies headache(s) [facility] Past Medical History Medical History Pubic ramus fracture Moderate protein-calorie malnutrition Closed compression fracture of thoracic vertebra Aspiration pneumonia Closed fracture of right hip Stage 4 pressure ulcer Recurrent Clostridioides difficile diarrhea External hemorrhoids Epidermal inclusion cyst White coat syndrome with high blood pressure but without hypertension Dry eyes Hyponatremia Hypercalcemia Diarrhea Renal calculi Constipation by delayed colonic transit GERD (gastroesophageal reflux disease) UTI (urinary tract infection) Villous adenoma of colon Insomnia Raynauds disease Anxiety Surgical History Hip fracture, right History of bronchoscopy History of tonsillectomy Family History Family History Father Medical history unknown Mother Dementia Alzheimers disease Mental health disorder Brother Leukemia Sister Medical history unknown Social History Social History Household Members: None Household Members Other:: usp Housing: Apartment Housing Other:: Leah Elkins prior to admission. Do you presently have visiting nurse or other home services: Yes ([employer]) Alcohol intake: former Comment: pt bed/chair bound at baseline Patient Tobacco Use Status: Former Tobacco user Tobacco use type: Cigarette e-Cigarette/Vaping Use: Never Used Second Hand Smoke Exposure: No Advance Directives: Yes Advance Directives on File: Yes Advance Directives Date on File: 11/23/22 Do you have a plan to hurt others: No Plan service: No Current occupational status: retired Cognitive needs: No Hearing needs: No Vision needs: Yes Physical Exam 2 Vital Signs: Vital Signs: Last Vital Signs Temp 97.8 F 03/19/25 15:15 Pulse 88 03/19/25 15:15 Resp 18 03/19/25 15:15 BP 163/81 H 03/19/25 15:15 Pulse Ox 96 03/19/25 15:15 O2 Del Method Room Air 03/19/25 15:15 BMI result Body Mass Index 20.1 Const: General: healthy appearing, comfortable, no acute distress, alert and awake Orientation/consciousness: patient oriented x3 HEENT: Head: Yes normocephalic and Yes atraumatic Eyes: Eyelids: Yes eyelids normal Conjunctivae: conjunctivae normal S clerae: sclerae normal Corneas: corneas normal Pupils: Equal, round and reactive pupils present EOM: EOMs intact bilaterally Neck: Neck: Yes full ROM Resp: Effort & Inspection: normal respiratory effort, able to speak in complete sentences and not labored Cardio: Rate: regular rate Rhythm: regular rhythm GI: Inspection: No distended Palpation (GI): Soft to palpation, not firm, nontender, no guarding and not rigid Skin: General skin exam: elasticity normal Neuro: General: patient oriented x3 Cranial nerves: Yes Equal, round and reactive pupils present and Yes Bilaterally intact EOM present Cognition (Neuro): normal cognition Medications Administered Discontinued Medications Generic Name Dose Route Start Last Admin Trade Name Freq PRN Reason Stop Dose Admin Lorazepam 1 mg 03/19/25 16:15 03/19/25 16:18 Lorazepam 1 Mg Tablet PO 03/19/25 16:16 1 mg ONCE ONE Administration Medical Decision Making Medical Decision Making [facility] Narrative: 74-year-old female presents for evaluation of lower abdominal/suprapubic pain. She reports inability urinate for a little over 12 hours. Bladder scan shows 382 cc of urine in bladder. This is not an overly impressive number, however given that she has not urinated over [address] a Lou catheter to send for urinalysis. Her labs did not show any leukocytosis, she has a chronic anemia that is consistent with a baseline. There was no left shift. No evidence of renal failure, her BUN is slightly elevated however this is at or below her baseline at 24. Creatinine is normal at 0.60 with a GFR greater than 60. No chemistry abnormalities. Differential Diagnosis Differential Diagnoses: The differential diagnosis associated with the presentation includes Urinary retention UTI Obstructive uropathy Renal failure Lab Data [facility] Lab Attestation statement: I reviewed the patient's lab results. As above 03/19/25 15:34 03/19/25 15:34 Labs: Lab Results 03/19/25 03/19/25 Range/Units 15:34 18:10 WBC 7.8 (4.8-10.8) X10*3/uL RBC 4.09 L (4.20-5.50) X10*6/uL Hgb 10.7 L (12.0-16.0) g/dl Hct 34.9 L (37.0-47.0) % MCV 85.3 (80.0-98.0) fL MCH 26.2 L (27.0-33.0) pg MCHC 30.7 L (31.0-35.0) g/dl RDW 16.7 H (11.0-16.0) % Plt Count 375 D (160-400) X10*3/uL MPV 8.9 L (9.4-12.3) fL Immature Gran % (Auto) 0.3 (0.0-0.4) % Neut % (Auto) 57.5 (45-73) % Lymph % (Auto) 30.9 (20-40) % [place] % (Auto) 9.0 (2-11) % Eos % (Auto) 1.7 (0-4) % Baso % (Auto) 0.6 (0-2) % Lymph # (Auto) 2.4 (1.2-4.9) X10*3/uL [place] # (Auto) 0.7 (0.1-1.2) X10*3/uL Eos # (Auto) 0.1 (0.0-0.4) X10*3/uL Baso # (Auto) 0.1 (0.0-0.2) X10*3/uL Abs Immat Gran (auto) 0.02 (0.00-0.03) X10*3/uL Absolute Neuts (auto) 4.5 (2.0-8.3) x10*3/uL Absolute Nucleated RBC 0.000 (0.0-0.012) X10*3/uL Nucleated RBC % (auto) 0.0 (0.0-0.2) /100WBC Sodium 144 (135-145) mmol/L Potassium 4.3 (3.3-5.1) mmol/L Chloride 108 (96-108) mmol/L Carbon Dioxide 27 (22-29) mmol/L Anion Gap 13 (12-20) BUN 24 H (9-16) mg/dL Creatinine 0.60 (0.5-1.4) mg/dL Estim Creat Clear Calc 62.8 Estimated GFR > 60 Random Glucose 89 (60-115) mg/dL Calcium 9.7 (8.4-10.2) mg/dL Magnesium 2.4 (1.6-2.6) mg/dL Total Bilirubin 0.2 (0.0-1.0) mg/dL AST 25 (5-31) U/L ALT 11 (0-31) U/L Alkaline Phosphatase 131 H (39-117) U/L Total Protein 7.1 (6.5-8.0) g/dL Albumin 3.9 (3.5-5.0) g/dL Urine Color Yellow Urine Appearance Turbid Urine pH 8.0 (5.0-9.0) Ur Specific [place] 1.015 (1.005-1.025) Urine Protein 100 (2+) H (Neg-Trace) mg/dL Urine Glucose (UA) Negative (Negative) mg/dL Urine Ketones Negative (Negative) mg/dL Urine Blood Small (1+) H (Negative) Urine Nitrite Negative (Negative) Ur Leukocyte Esterase Large (3+) H (Negative) Urine RBC 11-20 H (0-2) /HPF Urine WBC >50 H (0-5) /HPF Ur Squamous Epith Cells 3-5 (0-2) /HPF Urine Bacteria 4+ (None Seen) Hyaline Casts >20 (0-2) /LPF Discharge Plan Discharge Clinical Impression: Acute urinary retention Patient Disposition: Home, Self-Care Additional Instructions: You had a Lou catheter placed given your inability to urinate. You also appear to have a UTI. Take the cefuroxime twice daily for 1 week pain Follow up with Dr. Banegas for management of the catheter Prescriptions: New cefuroxime axetil 250 mg tablet 250 mg PO Q12H Qty: 14 0RF No Action (DME) foot inserts See Rx Instructions .Route .MEDSUPPLY Qty: 1 0RF Rx Instructions: As directed (DME) bed rail See Rx Instructions .Route .MEDSUPPLY Qty: 1 0RF Rx Instructions: As directed (DME) adult diapers briefs Small See Rx Instructions .Route .MEDSUPPLY Qty: 240 11RF Rx Instructions: As directed (DME) hospital bed Kit See Rx Instructions .Route Qty: 1 0RF Rx Instructions: As directed (DME) purewick See Rx Instructions .Route .MEDSUPPLY Qty: 1 0RF Rx Instructions: As directed pregabalin 150 mg capsule 150 mg PO BID 30 Days Qty: 60 0RF estradiol 0.01 % (0.1 mg/gram) cream See Rx Instructions vaginal 2XW 30 Days Qty: 42.5 6RF Rx Instructions: vaginally 2 times a week; pea sized amount to urethra 2 times a week oxycodone 20 mg tablet 20 mg PO BID PRN (Reason: pain) 30 Days Qty: 60 0RF Rx Instructions: Partial Fill upon patient request. methenamine hippurate 1 gram tablet 1 g PO DAILY 90 Days Qty: 90 1RF quetiapine 50 mg tablet 100 mg PO BID 30 Days Qty: 120 5RF metoprolol succinate 25 mg tablet extended release 24 hr 12.5 mg PO DAILY Qty: 30 5RF lorazepam 1 mg tablet 1 mg PO BID PRN (Reason: anxiety) 30 Days Qty: 60 5RF mirtazapine 15 mg tablet 15 mg PO BEDTIME 90 Days Qty: 90 1RF famotidine 20 mg tablet 20 mg PO BID@0900,1200 90 Days Qty: 180 2RF atorvastatin 40 mg tablet 40 mg PO BEDTIME 90 Days Qty: 90 1RF pantoprazole 40 mg tablet,delayed release (DR/EC) 40 mg PO DAILY@0630 90 Days Qty: 90 1RF temazepam 15 mg capsule 15 mg PO BEDTIME PRN (Reason: sleep) 30 Days Qty: 30 5RF hydrocortisone [Proctosol HC] 2.5 % cream with perineal applicator 1 appl MA BID-QID PRN (Reason: hemorrhoids) 14 Days Qty: 30 0RF (DME) air pressure mattress See Rx Instructions .Route .MEDSUPPLY Qty: 1 0RF Rx Instructions: As directed Print Language: Polish
[2025-03-19 16:01] LABS: Alanine Aminotransferase 11 U/L (0-31); Albumin Level 3.9 g/dL (3.5-5.0); Alkaline Phosphatase 131 U/L (39-117); Anion Gap 13 (12-20); Aspartate Amino Transferase 25 U/L (5-31); Blood Urea Nitrogen 24 mg/dL (9-16); Calcium 9.7 mg/dL (8.4-10.2); Carbon Dioxide 27 mmol/L (22-29); Chloride 108 mmol/L (96-108); Creatinine Clr Calc Pharmacy 62.8; Estimated Glomerular Filt Rate > 60; Magnesium 2.4 mg/dL (1.6-2.6); Potassium 4.3 mmol/L (3.3-5.1); Sodium 144 mmol/L (135-145); Total Protein 7.1 g/dL (6.5-8.0)
[2025-03-19 18:17] LABS: Appearance Urine Turbid; Glucose Urine UA Negative (Negative); PH 8.0 (5.0-9.0); Specific Gravity - Urine 1.015 (1.005-1.025); UMIC TRIGGER UACC YES
[2025-03-19 18:26] LABS: UACC Culture Trigger YES
[2025-03-19 19:10] VITALS: BP 163/81; PULSE 88; RESP 18; TEMP 36.6; O2SAT 96
== END 2025-03-19 20:05 | disposition home or self-care (01) ==
PROVIDERS: Physician Assistant Medical; Emergency Provider Emergency Medicine Emergency Medical Services; PCP Internal Medicine
DX: R33.9 Retention of urine, unspecified (principal); D50.9 Iron deficiency anemia, unspecified
CPT/HCPCS: 36415; 51702; 51798; 80053; 81001; 83735; 85025; 87086; 99283; 99285

== ENCOUNTER → 2025-04-02 11:11 | Outpatient (BNVA) | payer MEDICARE, MEDICAID, SELFPAY | PROVIDERS: PCP Internal Medicine; Visit Provider Nurse Practitioner Family | DX: R33.9 Retention of urine, unspecified (principal); R35.0 Frequency of micturition; R39.15 Urgency of urination; Z96.0 Presence of urogenital implants | CPT/HCPCS: 51700; 51702 ==

== ENCOUNTER 2025-04-09 11:06 | Outpatient (AMB) | payer MEDICARE, MEDICAID, SELFPAY ==
[2025-04-09 11:11] VITALS: BP 108/62; PULSE 97; TEMP 36.1; O2SAT 95
--- NOTE | 2025-04-09 11:11 | A.OFFPC_ITS ---
Vital Signs 04/09/25 11:11 Height 5 ft 2 in BMI Reason not done Patient refused/unable BP 108/62 Blood Pressure Location Rt brachial Position Sitting Pulse 97 Pulse Source Pulse Oximeter Temp 97.0 F Temp Source Temporal Artery Scan Pulse Oximetry (%) 95 Oxygen Delivery Method Room Air Intake Visit Reasons: follow up Healthcare Liaison Required: No Accompanied by: family friend Allergies No Known Allergies Allergy (Verified 04/09/25 11:30) Medication List - Last Reconciled 04/09/25 by Aniyah Mcgregor MD [adult diapers briefs As directed] [air pressure mattress As directed] atorvastatin 40 mg PO BEDTIME 90 days [bed rail As directed] estradiol 0.01%(0.1mg/gram) vaginally 2 times a week; pea sized amount to ure thra 2 times a week 30 days famotidine 20 mg PO BID@0900,1200 90 days [foot inserts As directed] hospital bed As directed hydrocortisone 2.5% (Proctosol HC) 1 appl CA BID-QID PRN 2 weeks lorazepam 1 mg PO BID PRN 30 days methenamine hippurate 1 g PO DAILY 90 days metoprolol succinate ER 12.5 mg (1/2 x 25 mg) PO DAILY mirtazapine 15 mg PO BEDTIME 90 days naloxone 4 mg/actuation (Narcan) 4 mg intranasal Q2M PRN 30 days oxycodone 20 mg PO BID PRN 30 days pantoprazole 40 mg PO DAILY@0630 90 days pregabalin 150 mg PO BID 30 days [purewick As directed] quetiapine 100 mg (2 x 50 mg) PO BID 30 days temazepam 15 mg PO BEDTIME PRN 30 days Tobacco use date assessed: 04/09/25 Fall risk assessment: No Falls in past year Last assessed Fall Risk: 04/09/25 Dental Screening Dental Screen Date: 04/09/25 Did you have a dental visit in the last 12 months?: No Did you have a dental problem in the last 6 months where you did not have access to dental care?: No Was dental information given to patient?: Patient has dentist HPI HPI Comments History of Present Illness Details The patient is a 74-year-old female presenting for management of chronic pain. She reports that her current pain medication, oxycodone, is short- acting and provides relief for only a couple of hours. The pain, primarily in her back associated with spinal curvature, is severe enough that it prevents her from finishing meals and causes insomnia. Her medication list includes atorvastatin for hypercholesterolemia, famotidine, lorazepam, quetiapine, temazepam, metoprolol, mirtazapine, and pantoprazole. She has a history of a pressure ulcer which has since resolved. The patient has an indwelling Lou catheter and experiences recurrent bacteriuria, for which she sees a urologist. She has also been noted to have mild anemia. The patient has a diagnosis of cataracts and reports a recent increase in eye pain and redness. The patient has a Do Not Resuscitate (DNR) order and wishes for no feeding tube, which is documented on a MOLST form. [facility] Medical History (Updated 04/09/25 @ 12:23 by Aniyah Mcgregor MD) Stage II pressure ulcer of sacral region Pubic ramus fracture Moderate protein-calorie malnutrition Closed compression fracture of thoracic vertebra Aspiration pneumonia Closed fracture of right hip Stage 4 pressure ulcer Recurrent Clostridioides difficile diarrhea External hemorrhoids Epidermal inclusion cyst White coat syndrome with high blood pressure but without hypertension Dry eyes Hyponatremia Hypercalcemia Diarrhea Renal calculi Constipation by delayed colonic transit GERD (gastroesophageal reflux disease) UTI (urinary tract infection) Villous adenoma of colon Insomnia Raynauds disease Anxiety Surgical History Hip fracture, right History of bronchoscopy History of tonsillectomy Family History Father Medical history unknown Mother Dementia Alzheimers disease Mental health disorder Brother Leukemia Sister Medical history unknown Social History Household Members: None Household Members Other:: pen[facility]entiary Housing: Apartment Housing Other:: [facility] prior to admission. Do you presently have visiting nurse or other home services: Yes ([employer]) Alcohol intake: former Comment: pt bed/chair bound at baseline Patient Tobacco Use Status: Former Tobacco user Tobacco use type: Cigarette e-Cigarette/Vaping Use: Never Used Second Hand Smoke Exposure: No Advance Directives Date on File: 11/23/22 service: No Current occupational status: retired Cognitive needs: No Hearing needs: No Vision needs: Yes Questionnaire PHQ-9 Over the last 2 weeks, how often have you been bothered by any of the following problems? 1. Little interest or pleasure in doing things: more than half the days 2. Feeling down, depressed, or hopeless: several days 3. Trouble falling or staying asleep, or sleeping too much: nearly every day 4. Feeling tired or having little energy: nearly every day 5. Poor appetite or overeating: several days 6. Feeling bad about yourself - or that you are a failure or have let yourself or your family down: several days 7. Trouble concentrating on things, such as reading the newspaper or watching television: not at all 8. Moving or speaking so slowly that other people could have noticed. Or the opposite - being so fidgety or restless that you have been moving around a lot more than usual: several days 9. Thoughts that you would be better off or of hurting yourself in some way: not at all Total score: 12 Depression Screening Interpretation: Positive Depression Screening Follow-up: Existing condition, In treatment and Follow-up Visit Requested Depression Screening Done: Yes 01055 - PHQ-9 Billing: Yes Source: Developed by Drs. Julian Mas, Karina Acevedo, Mook Hogue and colleagues, with an educational bernie from [employer]. Thrive Questionnaire Date Thrive assessed: 06/13/24 I am a: Patient What is your living situation today?: I have a steady place to live Within the past 12 months, did the food you bought not last and you didn't have the money to get more?: Never true Within the past 12 months, did you worry whether your food would run out before you got money to buy more?: Never true Do you have trouble paying for medicines?: No Do you have trouble getting transportation to medical appointments?: No Do you have trouble paying your heating and electricity bill?: No Do you have trouble taking care of your child, family member or friend?: No Do you have trouble with day-to-day activities such as bathing, preparing meals, shopping, managing finances, etc.?: No Are you currently unemployed and looking for a job?: No Are you interested in more education?: No Please select the resources that you would like help with: None Currently or been in a relationship where the following occur: No concerns reported THRIVE Score: 0 AUDIT C Alcohol Use Questionnaire (AUDIT-C) 1. How often do you have a drink containing alcohol?: Never 3. How often do you have six or more drinks on one occasion?: Never Total Score: 0 RACHEL-7 AMB Questionnaire RACHEL-7 Date RACHEL - 7 assessed: 06/13/24 Feeling nervous, anxious, or on edge: 1 = Several days Not being able to stop or control worryin = Not at all Worrying too much about different things: 1 = Several days Trouble relaxin = Not at all Being so restless that it is hard to sit still: 0 = Not at all Becoming easily annoyed or irritable: 0 = Not at all Feeling afraid as if something awful might happen: 0 = Not at all Total RACHEL-7 score (0-4 normal; 5-9 mild; 10-14 moderate; 15-21 severe): 2 Source: Developed by Drs. Julian Mas, Karina Acevedo, Mook Hogue and colleagues, with an educational bernie from [employer]. RACHEL-7 Assessment Billing RACHEL-7 Assessment Tool: RACHEL-7 Assessment 84375 Review of Systems Const All systems reviewed & are unremarkable except as noted in HPI and below Card Denies chest pain at rest, Denies chest pain with activity, Denies edema, Denies irregular heart rhythm, Denies claudication, Denies dyspnea, Denies dyspnea on exertion, Denies orthopnea, Denies paroxysmal nocturnal dyspnea and Denies slow heart rate Resp Denies cough, Denies dyspnea and Denies dyspnea on exertion GI Denies abdominal pain, Denies change in bowel habits, Denies excessive flatus, Denies nausea and Denies vomiting Physical exam (Primary Care) Vital Signs: Last Vital Signs Temp 97.0 F 04/09/25 11:11 Pulse 97 04/09/25 11:11 BP 108/62 04/09/25 11:11 Pulse Ox 95 04/09/25 11:11 Oxygen Delivery Method Room Air 04/09/25 11:11 Tobacco/Smoking Status: Tobacco use Status Tobacco use date assessed 04/09/25 04/09/25 11:17 Patient Tobacco Use Status Former Tobacco user 04/09/25 11:17 Tobacco use type Cigarette 04/09/25 11:17 e-Cigarette/Vaping Use Never Used 04/09/25 11:17 PHQ-9: PHQ-9 Score PHQ-9: Total score 12 04/09/25 11:17 Depression Screening Interpretation: Positive Depression Screening Follow-up: Existing condition, In treatment and Follow-up Visit Requested Thrive Assessment: Date of Thrive Assessment Date Thrive assessed 06/13/24 04/09/25 11:17 Currently or been in a relationship where the following occur: No concerns reported Const Limitations: wheelchair Resp Effort & Inspection: normal respiratory effort Auscultation: clear to auscultation bilaterally Cardio Jugular venous distension: no JVD Rate: regular rate Rhythm: regular rhythm Heart sounds: S1 normal heart sound present and S2 normal heart sound present Extrem General: Yes full ROM Coding Level of Care Code Est Pt Level 4 (37058) Complex EM visit Add On G2211 Diagnoses Thoracic spine pain M54.6 Mild recurrent major depression F33.0 Pure hypercholesterolemia E78.00 Anxiety F41.9 GERD (gastroesophageal reflux disease) K21.9 Chronic idiopathic constipation K59.04 Additional Codes PHQ-9 - 11100 - PHQ-9 Billing: Yes ([id number]) RACHEL-7 Assessment Billing - RACHEL-7 Assessment Tool: RACHEL-7 Assessment 36423 ([id number]) Time Spent (min) 21 Assessment & Plan Assessment & Plan (1) Thoracic spine pain: Code(s): M54.6 - Pain in thoracic spine Category: Medical (2) Mild recurrent major depression: Code(s): F33.0 - Major depressive disorder, recurrent, mild Category: Medical (3) Pure hypercholesterolemia: Code(s): E78.00 - Pure hypercholesterolemia, unspecified Category: Medical (4) Anxiety: Code(s): F41.9 - Anxiety disorder, unspecified Category: Medical (5) GERD (gastroesophageal reflux disease): Code(s): K21.9 - Gastro-esophageal reflux disease without esophagitis Category: Medical (6) Chronic idiopathic constipation: Code(s): K59.04 - Chronic idiopathic constipation Category: Medical Plan Plan 1. Chronic Pain Syndrome The patient's chronic back pain is inadequately controlled with short-acting oxycodone. A long-acting opioid, such as morphine, will be prescribed to be taken twice daily (every 12 hours) for better pain management and to improve sleep. The prescription was sent to the pharmacy, and insurance approval will be verified. The patient previously did not obtain a prescription for naloxone nasal spray due to its high cost ($79). 2. Dry Eye Syndrome The patient reports eye pain, redness, and dryness, and the physical exam confirms a dry appearance. Artificial tears (e.g., Systane) are recommended for symptom relief. An erythromycin ointment is not considered necessary at this time. 3. Insomnia, Unspecified The patient's insomnia is considered secondary to uncontrolled chronic pain. The initiation of a long-acting opioid is expected to improve sleep. 4. Pure Hypercholesterolemia The patient will continue atorvastatin for her hypercholesterolemia. A plan to order fasting labs to check cholesterol, glucose, kidney, and liver function was discussed, but the patient declined fasting. Therefore, labs will be deferred. Medications: New oxycodone ER (OxyContin) Partial Fill upon patient request. 10 mg PO BID 60 tabs 0RF 30 days M54.6 - Pain in thoracic spine Discontinued pregabalin Discontinued Reason: Patient Completed Course 150 mg PO BID 30 days 60 caps 0RF
--- OUTSIDE RECORDS SUMMARY | 2025-04-09 14:04 | XMS_ITS | Data Portability ---
Author Organization [facility] [employer] [facility], Main Office Address [address] [facility], [address] [place] [address] Care Team Providers Care Consulting Sales Manager Name Role Phone SHALONDA MARY Primary Care Provider [facility] - 2ND FLOOR OTHER Assessment No assessment recorded. Plan of Treatment Reminders Order Date Submit Date Provider Last Modified By Organization Details Last Modified Time Details Appointments None recorded. Lab None recorded. Referral None recorded. Procedures None recorded. Surgeries None recorded. Imaging None recorded. Medication Orders tramadol 50 mg tablet [address] [place] [address] , [address] [place], [address], 4 19:48:38 Patient TargetsNo targets recorded. Patient InstructionsNo instructions recorded. Reason for Referral None Reported. Problems Name Problem SNOMED Code Status Onset Date Resolution Date Notes Provider Name and Address Organization Details Recorded Time Falls [id number] Active 2022 HANSEL DORANTES NP [address] [facility], [address], [place], [address], [facility] 3 12:56:45 Fracture of pelvis 02382091 Active 2022 HANSEL DORANTES NP [address] [facility], [address], [place], [address], [facility] 3 12:56:56 Fracture of foot 14582950 Active 2022 HANSEL DORANTES NP [address] [facility], [address], [place], [address], [facility] 3 12:57:14 Retention of urine 776486629 Active 2022 HANSEL DORANTES NP [address], [address], [place], [address], [facility] 3 12:57:25 Gastroesoph ageal reflux disease without esophagitis 682426801 Active 2022 HANSEL DORANTES NP [address], [address], [place], [address], [facility] 3 13:02:50 Anxiety 34456096 Active 2022 HANSEL DORANTES NP [address], [address], [place], [address], [facility] 3 13:03:02 Insomnia 337259289 Active 2022 HANSEL DORANTES NP [address], [address], [place], [address], [facility] 3 13:03:10 Constipatio n 35975996 Active 2022 HANSEL DORANTES NP [address] [facility], [address], [place], [address], [facility] 3 13:04:29 Hypokalemia 97174051 Active 2022 HANSEL DORANTES NP [address] [facility], [address], [place], [address], [facility] 3 13:10:05 Fracture of phalanx of foot 17737381 Active 2022 Shereen Hilario MD [address] [facility], [address], [place], [address], [facility] 3 22:56:52 Hypercalcem ia 75777522 Active 2022 Shereen Hilario MD [address], [address], [place], [address], [facility] 3 23:18:36 Acute urinary tract infection 635545438 Active 2022 HANSEL DORANTES NP [address], [address], [place], [address], [facility] 3 11:01:09 Metabolic encephalopa thy 56861875 Active 2023 Britany Dunbar NP [address], [address], [place], [address], [facility] 4 12:40:13 Folic acid deficiency 796655127 Active 2023 Britany Dunbar NP [address], [address], [place], [address], [facility] 4 12:40:49 Adult failure to thrive syndrome 269529134 Active 2023 Shereen Hilario MD [address], [address], [place], [address], [facility] 4 01:57:58 Compression fracture of thoracic vertebra 1395234003474 Active 2023 Shereen Hilario MD [address] [facility], [address], [place], [address], [facility] 4 01:58:35 Hemorrhoids 32522397 Active 2023 Britany Dunbar NP [address] [facility], [address], [place], [address], [facility] 4 14:32:59 Problem Notes None recorded. [...] in Arterial blood by Pulse oximetry Systolic And Diastolic Provider Name and Address Organization Details Last Updated DateTime 4 152.4 cm 16 kg/m2 98955.8 6 g 76 /min 18 /min 97.6 [degF] 96 % 96 % 124/68 mm[Hg] Britany Dunbar NP [address], [place], [address], [facility] 4 12:05:52 Date Recorded Body height Body mass index (BMI) Body weight Heart rate Respiratory rate Body temperature Oxygen saturation Oxygen saturation in Arterial blood by Pulse oximetry Systolic And Diastolic Provider Name and Address Organization Details Last Updated DateTime 4 152.4 cm 16.1 kg/m2 20440.7 3 g 82 /min 18 /min 98.6 [degF] 98 % 98 % 124/68 mm[Hg] Shereen Hilario MD [address] [employer] [facility] , [address], [place], [address], [facility] 4 21:23:27 Date Recorded Body height Body weight Body mass index (BMI) Heart rate Respiratory rate Body temperature Oxygen saturation Oxygen saturation in Arterial blood by Pulse oximetry Systolic And Diastolic Provider Name and Address Organization Details Last Updated DateTime 4 152.4 cm 28440.7 3 g 16.1 kg/m2 80 /min 17 /min 97.9 [degF] 97 % 97 % 118/70 mm[Hg] Britany Dunbar NP [address], [place], [address], [facility] 4 08:20:23 Date Recorded Body height Body weight Body mass index (BMI) Heart rate Respiratory rate Body temperature Oxygen saturation Oxygen saturation in Arterial blood by Pulse oximetry Systolic And Diastolic Provider Name and Address Organization Details Last Updated DateTime 4 152.4 cm 00257.7 3 g 16.1 kg/m2 77 /min 18 /min 98.1 [degF] 97 % 97 % 120/76 mm[Hg] Britany Dunbar NP [address] , [address], [place], [address], [facility] 4 14:03:47 Date Recorded Body height Body weight Body mass index (BMI) Heart rate Respiratory rate Body temperature Oxygen saturation Oxygen saturation in Arterial blood by Pulse oximetry Systolic And Diastolic Provider Name and Address Organization Details Last Updated DateTime 4 152.4 cm 26285.5 7 g 16 kg/m2 70 /min 18 /min 98.2 [degF] 97 % 97 % 120/76 mm[Hg] Britany Dunbar, JEREMY [address] [facility], [address], [place], [address], [facility] 4 16:08:36 Social History Question Answer Notes LastModified by Organizat ion Details LastModified Time Tobacco Smoking Status Former Smoker HANSEL DORANTES NP [address] [facility], [address], [place], [address], [facility] 08/26/2022 12:45:30 Do You Have An Advance Directive? Yes Information not available 08/26/2022 What Is Your Code Status? DNR/DNI Okay To Transfer To [facility] No Ivf, Art Nutrition, Or Dialysis Information not available 08/25/2023 Where Do You Live? Apartment Lives Home Alone, No Stairs Information not available 08/28/2022 Legal Guardian? No Informati on not available 08/28/2022 Do You Have A Medical Power Of Front Desk Receptionist? Yes Information not available 08/28/2022 What Was [...] Recorded Time Td(adult) unspecified formulation 1 completed [facility] 08/11/2023 15:56:45 Pneumococcal conjugate PCV20, polysaccharide EFH220 conjugate, adjuvant, PF 3 completed [facility] 08/11/2023 15:57:18 SARS-COV-2 (COVID-19) vaccine, UNSPECIFIED 1 completed [facility] 08/11/2023 15:58:11 SARS-COV-2 (COVID-19) vaccine, UNSPECIFIED 2 completed [facility] 08/11/2023 15:58:19 SARS-COV-2 (COVID-19) vaccine, UNSPECIFIED 2 completed [facility] 08/11/2023 15:58:32 Past Encounters Encounter ID Performer Location Encounter Start Date Encounter Closed Date Diagnosis/Indication Diagnosis SNOMED-CT Code Diagnosis ICD10 Code Diagnosis IMO Codes Diagnosis Note [id number] JEREMY KUNZ [address] [facility] [facility] [address] [place] [address] 08/26/2022 10:52:45 08/28/2022 16:11:11 Fracture of pelvis 09799281 S32.9XXA PT OT eval and treatoxyco done 5 mg q4hr prn Retention of urine 50988 4002 R33.9 mcdonald cathflomax 0.4 mg hsdoxycycl ine 50 mg bid, no end date Anxiety 50255088 F41.9 ativan 1 mg bid prn to 4/3seroque l 50 mg bid Gastroesop hageal reflux disease without esophagitis 027541937 K21.9 pepcid 20 mg bidprotoni x 40 mg daily Insomnia 023755410 G47.0 0 temazapam 15 mg hs prn Falls 671874688 R29.6 PT OT eval and treatfall precaution sfrequent safety checks Constipation 82768320 K5 9.00 miralax dailycolac e daily Hypokalemia 14270408 E87 .6 monitor labspotass ium/bicarb 25 meq bid [id number] MD CHERYL Quesada [address] [facility] [address] [place] [address] 08/28/2022 18:30:09 08/31/2022 14:39:30 Fracture of pelvis 01387321 S32.9XXD Very deconditio irish and difficulty moving due to pain.Archie nue oxycodone 5 mg q 4 hrs prn and APAP 650 mg q 6 hrs prn.Needs PT/OT for strengthen ing, balance, gait training, safety and function.C ontinue fall precaution s.Monitor for safety.F/U with ortho as planned Retention of urine 40418 4002 R33.8 Continue mcdonald cath until pt. is more mobile.Con tinue tamsulosin 0.4 mg qd and doxycyclin e 50 mg BID for UTI prophylaxi s.Plan voiding trial for when pt able to ambulate independen tly. Anxiety 68496037 F41.1 Mood good tonight.Co ntinue escitalopr am 5 mg qd, seroquel 50 mg BID, hydroxyzin e 15 mg qhs, temazepam 15 mg qhs prn, and lorazepam 0.5 mg BID prn.Monito r mood.Psych consult prn. Gastroesop hageal reflux disease without esophagitis 659347080 K21.9 Continue famotidine 20 mg BID and pantoprazo le 40 mg qd.Monitor sxs. Insomnia 992920192 G47.0 0 Meds as above.Becca tor sleep patterns. Falls 610779463 R29.6 PT/OT as above. Constipation 95230090 K5 9.09 Continue lactulose 30 ml qd, miralax 17 gms qd, and colace 100 mg qd.Use bowel protocol prn.Monito r bowel function. Hypokalemia 90577391 E87 .6 Continue K+ as above.Becca tor labs. Fracture o f phalanx of foot 69475891 S92.592D Continue to wear boot.Ambul ate as tolerated. PT/OT as above.F/U with ortho as planned. Renal tubu lar acidosis 7553277 N25.89 Continue potassium bicarb 25 meq BID.Monito r labs.F/u with renal. Mild prote in-calorie malnutrition (weight for age 75-89 percent of standard) 460347901 E44.1 Underwt,En courage healthy eating.Mon itor wts and intake.Con caramel maker supplement s.Dieticia n consult. Villous ad enomatous polyp of colon 233284845 K63.5 Hx of precancero us polyps.Pt doesn't plan on doing f/u colonoscop ies.Monito r bowel function. Hypercalcemia 27687030 E 83.52 PTH WNL in 09/2021Moni tor Anemia 710703515 D64.89 With marked drop in hgb since initial fall. GI consult inpt recommende d colonoscop y, but pt refuses. She says that even if she had colon CA she wouldn't do anything about it.It seems more likely that drop is due to bleeding from fx.Continu e FeSO4 325 mg qd.Monitor hgb and transfuse for hgb <7 [id number] JEREMY KUNZ [address] [place] [address] 09/02/2022 12:27:02 09/04/2022 15:30:57 Fracture of phalanx of foot 90424772 S92.592D Ambulate as tolerated. PT/OT as above.F/U with ortho as planned. Fracture of pelvis 07125 009 S32.9XXD PT OT eval and treatoxyco done 5 mg q4hr prn Constipation 98473482 K5 9.09 miralax dailycolac e dailylactu lose daily [id number] HANSEL DORANTES NP [address] [address] 09/04/2022 10:58:48 09/08/2022 12:30:49 Fracture of pelvis 25935137 S32.9XXD PT OT eval and treatoxyco done 5 mg q4hr prnbowel protocol Fracture o f phalanx of foot 83802732 S92.592D Ambulate as tolerated. PT/OT as above.F/U with ortho as planned. Retention of urine 45325 4002 R33.8 mcdonald cath-remov ed, voiding wellflomax 0.4 mg hs Acute urin andrew tract infection 315522235 N39.0 levofloxin 250 mg daily to 09/13983 HANSEL DORANTES NP CHERYL MARTINEZ [address] [place] [address] 09/07/2022 14:40:54 09/09/2022 12:32:56 Fracture of pelvis 85747441 S32.9XXD PT OT eval and treatoxyco done 5 mg q4hr prnbowel protocol Fracture of foot 6796241 5 S92.902D PT OT eval and treatoxyco done 5 mg q4hr prnbowel protocol Fracture o f phalanx of foot 34477410 S92.592D Ambulate as tolerated. PT/OT as above.F/U with ortho as planned. [id number] HANSEL DORANTES NP [facility] [address] [address] 09/10/2022 10:30:47 09/16/2022 15:52:39 Anxiety 42583612 F41.1 ativan 1 mg bid prnseroque l 50 mg bidAIMS 0psych prn Insomnia 370550622 G47.0 0 temazapam 15 mg hs prn Fracture of pelvis 90263 009 S32.9XXD PT OT eval and treatoxyco done 5 mg q4hr prnbowel protocol [id number] HANSEL DORANTES NP [address] [address] 09/16/2022 12:50:19 09/22/2022 11:59:18 Fracture of pelvis 13483874 S32.9XXD PT OT eval and treatoxyco done 5 mg q6hr prnbowel protocol Anxiety 61203873 F41.1 ativan 1 mg bid prnseroque l 50 mg bidAIMS 0psych prn [id number] HANSEL D[facility]ANTES [facility] [address] [place] [address] 09/18/2022 12:19:47 09/22/2022 12:53:50 Fracture of pelvis 61266465 S32.9XXA PT OT eval and treatoxyco done 5 mg q6hr prnadvil 400 mg q8hr prn Retention of urine 37648 4002 R33.9 mcdonald cath-remov ed voiding wellflomax 0.4 mg hs Anxiety 08762643 F41.9 ativan 1 mg bid prn to 4/20seroqu el 50 mg bidlexapro 10 mg dailyhydro xyzine 25 mg hspsych prn Gastroesop hageal reflux disease without esophagitis 214673846 K21.9 pepcid 20 mg bidprotoni x 40 mg daily Insomnia 586442937 G47.0 0 temazapam 15 mg hs prn [place] 655733967 R29.6 PT OT eval and treatfall precaution sfrequent safety checks Constipation 60792292 K5 9.00 miralax dailycolac e daily Hypokalemia 73372133 E87 .6 monitor labspotass ium/bicarb 25 meq bid [id number] HANSEL DORANTES NP [address] [address] 09/21/2022 11:40:35 09/24/2022 15:19:51 Fracture of pelvis 65286395 S32.9XXA PT OT eval and treatoxyco done 5 mg q6hr prnadvil 400 mg q8hr prn Retention of urine 25396 4002 R33.9 flomax 0.4 mg hs Anxiety 84223735 F41.9 ativan 1 mg bid prn to 4/20seroqu el 50 mg bidlexapro 10 mg dailyhydro xyzine 25 mg hspsych prn Gastroesop hageal reflux disease without esophagitis 461834954 K21.9 pepcid 20 mg bidprotoni x 40 mg daily Insomnia 599915214 G47.0 0 temazapam 15 mg hs prn [place] 441879047 R29.6 PT OT eval and treatfall precaution sfrequent safety checks Constipation 48511147 K5 9.00 miralax dailycolac e daily Hypokalemia 15974169 E87 .6 monitor labspotass ium/bicarb 25 meq bid [id number] Britany Dunbar NP [facility] [address] [place] [address] 08/25/2023 12:05:06 08/31/2023 10:07:00 Fracture of pelvis 72724305 S32.9XXA hx ofadvil 400 mg q8hr prnmonitor Anxiety 79165933 F41.9 contativan 1 mg bid prn x 14 dyas and reeval ( on at home)seroq uel 25 mg bidpsych prn Gastroesop hageal reflux disease without esophagitis 803102077 K21.9 pepcid 20 mg bidprotoni x 40 mg dailymonit or Insomnia 067691532 G47.0 0 temazepam 15 mg hs prnmonitor [place] 738231747 R29.6 hx ofplan:mon itor labsPT OT eval and treatfall precaution sfrequent safety checks Sepsis due to urinary tract infection 614793079 N39.0 levofloxic in 750 mg po daily x 6 more dosesadd probiotic 1 tab po bidmonitor cbc, bmp weeklymoni tor vitals Metabolic encephalopathy 84270329 G93.41 due to sepsismoni tor for improvemen t and sequelae Folic acid deficiency 19 5616192 E53.8 found to have folic acid deficiency in hosp 08/20/23fol ic acid 1 mg po dailymonit or Hypothermia 767046073 T6 8.XXXA resolved with elise ordonez and tx in hospmonito r Clostridio ides difficile infection 214556536 A04.72 [facility] to [facility], still having diarrheava ncomycin 125 mg po cap po q 6 hours until 08/28add probiotic 1 tab po bidmonitor for sequelaemo nitor vitals, s/s of dehydratio n etc.... Retention of urine 43354 4002 R33.9 hx of urinary retention and [...] tor Adult fail ure to thrive syndrome 944728417 R62.7 hx of multiple admissions in recent pastweight of 81 lbsstartwe ight weeklydiet ician to consult for increasing calorie needsconsi keven remeron if needed to increase calories and promote healingmon itor Abrasion 105799537 T14.8 XXA denuded skin to left upper thighcontz eroform and foam dressing dailymonit or [id number] Shereen Hilario MD [address] [address] 08/30/2023 21:18:07 09/06/2023 09:10:49 Sepsis due to urinary tract infection 929011292 A41.89 Completing course of abxs with levofloxac in 750 mg qd, today.Cont inue probiotic BID until 08/31.Monit or sxs and labs Metabolic encephalopathy 93809416 G93.41 Back to baseline.M onitor Hypothermia 613797151 T6 8.XXXA Resolved.M onitor temp Clostridio ides difficile infection 648551587 A04.72 Stools improving. Completed vancomycin 125 mg q 6 hrs yesterday. Continue probiotic BIDMonitor for recurrence . Folic acid deficiency 19 8266033 E53.8 Continue folic acid 1 mg qdMonitor Anxiety 55926658 F41.1 Mood sl. anxious tonight.Co ntinue seroquel 25 mg BID, temazepam 15 mg qhs prn, and lorazepam 1 mg BID prn. Reeval in 14 days.Monit or mood.Consu lt psych prn Gastroesop hageal reflux disease without esophagitis 832568686 K21.9 No current sxs.Contin ue famotidine 20 mg BID and pantoprazo le 40 mg qdMonitor sxs Insomnia 444645002 G47.0 0 As above.Becca tor sleep patterns. Falls 668773978 R29.6 Very deconditio irish after a series of illnesses. Needs PT/OT for strengthen ing, balance, gait training, safety and function.C ontinue fall precaution s.Monitor for safety. Retention of urine 14195 4002 R33.8 Was going to get mcdonald removed today, but didn't get done in the AM and pt preferred not to have it taken out until tomorrow morning.OK to wait.When removed will monitor PVRs and reinsert if needed.If need to be reinserted would add tamsulosin and consult uro. Adult fail ure to thrive syndrome 722155795 R62.7 Wt stable from last admission, but still very underwt.Co ntinue meds as above.Cons ider nutritiona l supplement . Abrasion 986059784 T14.8 XXA Not examined today.Cont inue local care as ordered.Mo nitor. Compressio n fracture of thoracic vertebra 9314244610 104 S22.040D With acute fx of T4 [...] knows that is bad for her stomach. [id number] Britany Dunbar, JEREMY [facility] [place] [address] 09/03/2023 08:05:05 09/07/2023 09:20:23 Sepsis due to urinary tract infection 023829534 A41.89 Completed course of abxs with levofloxac in 750 mg and probioticM onitor sxs and labs Metabolic encephalopathy 88163102 G93.41 Back to baseline with congitionM onitor Clostridio ides difficile infection 164596177 A04.72 Stools improving, but still having loose stools. technicall y off precaution s now but may leave in place per facility dueComplet ed vancomycin 125 mg q 6 hrsMonitor for recurrence . Folic acid deficiency 19 0429113 E53.8 Continuefo lic acid 1 mg qdMonitor Anxiety 76947639 F41.1 Mood sl. anxious tonight.Co ntinuesero quel 25 mg BIDtemazep am 15 mg qhs prn, and lorazepam 1 mg BID prn. Reeval in 14 days on 4/2Monitor mood.Consu lt psych prn Gastroesop hageal reflux disease without esophagitis 614427244 K21.9 No current sxs.Contin uefamotidi ne 20 mg BIDpantopr azole 40 mg qdMonitor sxs Insomnia 429277512 G47.0 0 As above.Becca tor sleep patterns. Falls 075606152 R29.6 Very deconditio irish after a series of illnesses. Needs PT/OT for strengthen ing, balance, gait training, safety and function.C ontinuefal l precaution sneeds encouragem ent for self care here with support in preparatio n for home.Monit or for safety. Retention of urine 69388 4002 R33.8 resolvedfo margairta removed and urinating large amounts Adult fail ure to thrive syndrome 248967170 R62.7 Wt stable from last admission, but still very underwt.Co ntinue meds as above.Cons ider nutritiona l supplement and protein Abrasion 827927842 T14.8 XXA Not examined today.Cont inue local care as ordered.Mo jade. Compressio n fracture of thoracic vertebra 4485631465 104 S22.040D With acute fx of T4 and chronic fxs of T8 and T11. Manageable at home with OTC meds, but bed here is causing increased pain, seems better todaycontt ramadol 50 mg BID prn. (not using or needing here over last few days)APAP 650 mg q 4 hrs prnrefuses ibuprofen 400 mg q 8 hrs prn. as it bothers her stomach [id number] Britany Dunbar NP [facility] [address] 09/06/2023 14:02:55 09/09/2023 10:04:52 Sepsis due to urinary tract infection 714957953 A41.89 Completed course of abxs with levofloxac in 750 mg and probioticM onitor sxs and labs Metabolic encephalopathy 09495863 G93.41 Back to baseline with congitionM onitor Clostridio ides difficile infection 371373114 A04.72 Stools improving, but still having loose stools.She is technicall y off precaution sCompleted vancomycin 125 mg q 6 hrs therapyMon itor for recurrence . Folic acid deficiency 19 1895402 E53.8 Continuefo lic acid 1 mg qdMonitor Anxiety 47485381 F41.1 Mood very anxious as getting closer to dischargeC ontinueser oquel 25 mg BIDtemazep am 15 mg qhs prnlorazep am 1 mg BID prn. Reeval in 14 days on 09/19Monito r mood.Consu lt psych prn Gastroesop hageal reflux disease without esophagitis 494053497 K21.9 No current sxs.Contin uefamotidi ne 20 mg BIDpantopr azole 40 mg qdMonitor sxs [place] 712770661 R29.6 remains very deconditio irish after a series of illnesses. Needs PT/OT for strengthen ing, balance, gait training, safety and function.C ontfall precaution sneeds encouragem ent for self care here with support in preparatio n for home.Monit or for safety. Adult fail ure to thrive syndrome 490358744 R62.7 Wt stable from last admission, but still very underwt.Co ntinue meds as above.Cons ider nutritiona l supplement and protein Abrasion 550004683 T14.8 XXA Not examined today.Cont inue local care as ordered.Mo jade. Compressio n fracture of thoracic vertebra 6493745986 104 S22.040D With acute fx of T4 and chronic fxs of T8 and T11. Manageable at home with OTC meds, but bed here is causing increased pain, seems better todaycontt ramadol 50 mg BID prn. (not using or needing here over last few days)APAP 650 mg q 4 hrs prnrefuses ibuprofen 400 mg q 8 hrs prn. as it bothers her stomach Hemorrhoids 13838900 K64 .9 pt with hemorrhoid s chronicall y with reoccuranc e with loose stoolsh/h stable, will trend with labs tomreports using preparatio n h with good effectmoni tor Hypokalemia 66157090 E87 .6 acute hypkalemia 2.7 from labs 4/1replete with potassium 40 meq po q 6 hours x 5 dosesreche ck labs in am-underst anding she will be partially repleted but would like to go home if enough to be stablemoni tor [id number] Britany Dunbar, JEREMY [address] [address] 09/08/2023 16:07:33 09/13/2023 09:34:40 Hypokalemia 38726193 E87.6 resolved wtih replacemen t to 3.9acute hypkalemia 2.7 from labs 4/1replete with potassium 40 meq po q 6 hours x 5 dosesfu with pcp outpt Sepsis due to urinary tract infection 650428858 A41.89 Completed course of abxs with levofloxac in 750 mg and probioticw bc improvingM onitor sxs and labs outpt with pcp Clostridio ides difficile infection 652656148 A04.72 Stools improving, but still having semi-loose stools.off precaution sCompleted vancomycin 125 mg q 6 hrs therapyMon itor for recurrence outpt with pcp Anxiety 54598161 F41.1 Mood very anxious as getting closer to dischargeC ontinueser oquel 25 mg BIDtemazep am 15 mg qhs prnlorazep am 1 mg BID prnMonitor mood outpt with pcpConsult psych prn outpt Metabolic encephalopathy 95382550 G93.41 Back to baseline with cognitionM onitor outpt with pcp Folic acid deficiency 19 2507307 E53.8 folic acid 1 mg qdMonitor with pcp outpt Gastroesop hageal reflux disease without esophagitis 669357985 K21.9 No current sxs.Contin uefamotidi ne 20 mg BIDomepraz ole 40 mg qd(changed from pantoprazo le)Monitor sxs outpt with pcp Falls 867468522 R29.6 remains very deconditio irish after a series of illnesses. Needs PT/OT for strengthen ing, balance, gait training, safety and function as willing and needed outptContf all precaution s and safety precaution s in homeneeds encouragem ent for self careMonito r for safety with vna and pcp oupt Adult fail ure to thrive syndrome 310281615 R62.7 Wt stable from last admission, but still very underwt.Co ntinue meds as above.Cons ider nutritiona l supplement and protein outpt also Compressio n fracture of thoracic vertebra 8596201663 104 S22.040D With acute fx of T4 and chronic fxs of T8 and T11. Manageable at home with OTC meds, but bed here is causing increased pain, seems better nowAPAP 650 mg q 4 hrs prnnote: refuses ibuprofen 400 mg q 8 hrs prn. as it bothers her stomachmon itor outpt with pcp Hemorrhoids [id number] K64 .9 pt with hemorrhoid s chronicall y with reoccuranc e with loose stoolsh/h stablerepo rts using preparatio n h with good effectmoni tor outpt with pcp Leukocytosis [id number] D 72.829 resolvingf u with pcp outptmonit or for s/s of infection and trend Health Concerns Section Related Observation LastModified by Organization Detai ls LastModified Time None Recorded Concern Status LastModified by Organization Details LastModified Time None Recorded Advance Directives Directive Y: Payers Insurance Date Sequence Insurance Name Policy Number Policy Rueda Covered Member ID Rueda Member ID Guarantor Name 09/13/2023 2 [place] [id number] [facility] Wagner [id number] Lisa Wagner 09/06/2023 1 MED[place]ARE [place]: [facility] [employer] [facility] Wagner [id number] 1 [facility] Wagner Notes Date Note Type Note Provider Name and Address Organization Details Recorded Time 08/25/2023 text/html Pt is seen for an initial intake summary. 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Most recently 08/19- at [facility] for urosepsis.Prior to that 08/13-08/18 for c. diff and hypokalemia.And before that 07/18-07/20 for dizziness with fall and compression fx, with [facility] stay 07/20- during which she was also txed for a UTI. She presented to the [facility] ED on 08/19 after her SPORTS INFORMATION DIRECTOR found her on the ground for unknown [...] mid inferolateral segments similar to prior exam. KISS MIXER eval showed no signs of aspiration and [...] kidney stones, and hypercalcemia. Shereen Hilario MD [address], [address], [place], [address], [employer] 09/03/2023 01:59:11 09/03/2023 text/html This is a [...] without difficulty voiding. She was seen by psychology technician and no medication changes at this time. Social work is trying to align services up for her discharge next week. Note: Recent hospitalizations:08/19- at [facility] for urosepsis.08/13-08/18 for c. diff and hypokalemia.07/18-07/20 for dizziness with fall and compression fx, with [facility] stay 07/20- during which she was also txed for a UTI. Britany Dunbar NP [address], [address], [place], [address], [employer] 09/03/2023 11:16:49 09/06/2023 text/html This is a [...] labs tomorrow am. Note: Recent hospitalizations:08/19- at [facility] for urosepsis.08/13-08/18 for c. diff and hypokalemia.07/18-07/20 for dizziness with fall and compression fx, with [facility] stay 07/20- during which she was also txed for a UTI. Britany Dunbar, JEREMY [address], [address], [place], [address], [facility] 09/06/2023 14:36:11 09/08/2023 text/html Pt seen for discharge summary. This is a 72 yo woman [...] feet in hallway. 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 She will fu with Dr. Banks and call for fu appt already initiated by nursing. She plans to dc with caregiver friend at 0900 on 09/08. While at [facility]: She completed her course of cdiff [...] her on dc. Note: Recent hospitalizations:08/19- at [facility] for urosepsis.08/13-08/18 for c. diff and hypokalemia.07/18-07/20 for dizziness with fall and compression fx, with [facility] stay 07/20- during which she was also txed for a UTI. Britany Dunbar NP [address], [address], [place], [address], [facility] 09/08/2023 16:54:02 OBGyn Episode No OBEpisode recorded.
--- OUTSIDE RECORDS SUMMARY | 2025-04-09 14:04 | XMS_ITS | Clinical Summary ---
Author Organization Formerly [facility] Facility Address [address] [place] [address] Care Team Providers Care Barrel Dedenting Machine Operator Name Role Phone Aniyah Smith MD Primary Care Provider [phone] Social History Tobacco Use Types Packs/Day Years [...] patient's age to complete [place] [address] Medicare [facility] Medicare [facility] Care Teams Barrel Dedenting Machine Operator Relationship Specialty Start Date End Date Aniyah Smith MD [address] [place], [place] PCP - General Internal Medicine 08/24/22
--- OUTSIDE RECORDS SUMMARY | 2025-04-09 14:04 | XMS_ITS | Clinical Summary ---
Author Organization [facility] Address [address] [place], [place] [id number] Phone Care Team Providers Care Substitute Bus Driver Name Role Phone Pcp, Unknown Primary Care [...] Insurance [place] [id number] [facility] MEDEX SUPPLEMENT MEDICARE PART A & B Member Subscriber Plan / Payer ( fective 2013-Present) Name:Lisa Edward Member ID:[id number] Relation to Subscriber:Self Name:Lisa Edward Subscriber ID:[id number] Payer ID:[id number] Group ID:Not on file Type:Medicare Address: [facility] [address] [place] [phone] [facility] MEDEX SUPPLEMENT MEDICARE PART A & B [employer] MEDEX SUPPLEMENT MEDICARE PART A & B [employer] MEDEX SUPPLEMENT MEDICARE PART A & B [employer] MEDEX SUPPLEMENT MEDICARE PART A & B [employer] MEDEX SUPPLEMENT MEDICARE PART A & B [employer] MEDEX SUPPLEMENT MEDICARE PART A & B [employer] MEDEX SUPPLEMENT MEDICARE PART A & B [facility] MEDEX SUPPLEMENT Care Teams Substitute Bus Driver Relationship Specialty Start Date End Date Pcp, Unknown PCP - General 10/01/20 Additional Source Comments The information contained in this document represents components of the legal health record. It is not the complete legal health record.[facility]
== END 2025-04-09 11:46 | disposition home or self-care (01) ==
PROVIDERS: PCP Internal Medicine; Visit Provider Internal Medicine
DX: M54.6 Pain in thoracic spine (principal); F33.0 Major depressive disorder, recurrent, mild; E78.00 Pure hypercholesterolemia, unspecified; F41.9 Anxiety disorder, unspecified; K21.9 Gastro-esophageal reflux disease without esophagitis; K59.04 Chronic idiopathic constipation

== ENCOUNTER → 2025-04-09 11:06 | Outpatient (BNVA) | payer MEDICARE, MEDICAID, SELFPAY | PROVIDERS: PCP Internal Medicine; Visit Provider Internal Medicine | DX: M54.6 Pain in thoracic spine (principal); F33.0 Major depressive disorder, recurrent, mild; E78.00 Pure hypercholesterolemia, unspecified; F41.9 Anxiety disorder, unspecified; K21.9 Gastro-esophageal reflux disease without esophagitis; K59.04 Chronic idiopathic constipation | CPT/HCPCS: 96127; 99212 ==

== ENCOUNTER 2025-05-09 09:20 | Outpatient (AMB) | payer MEDICARE, MEDICAID, SELFPAY ==
--- NOTE | 2025-05-09 09:31 | AM.OFFVISNUR ---
Intake Visit Reasons: [place] Allergies No Known Allergies Allergy (Verified 04/09/25 11:30) Office Procedures Bladder/Catheter Procedure Details: Patient presents to office for voiding trial s/p Urinary retention. 120mls sterile water instilled through catheter, patient tolerated well. Removed 16fr mcdonald catheter, patient tolerated removal well. Patient not able to void right away due to limited mobility. Decision to have her go home and drink fluids and attempt to void. Educated patient and caregive if she cannot void by 2om she needs to call to the office to schedule an appt for new mcdonald catheter placement. Patient and caregiver verbalized understading of the plan. 63743-Uwogmlzafg of Bladder Procedure code (CPT) selection complete Assessment & Plan Assessment & Plan Orders: Orders AMB Bladder/Catheter Procedure Today R33.9 - Retention of urine, unspecified Coding CPT Codes Bladder/Catheter Procedure - CPT: 85859-Ospmuaquju of Bladder ([id number])
--- OUTSIDE RECORDS SUMMARY | 2025-05-09 10:08 | XMS_ITS | Data Portability ---
Author Organization [facility] [place], Main Office Address [address], [address] [place] [address] Care Team Providers Care Plastics Scientist Name Role Phone SHALONDA MARY Primary Care Provider [phone] [facility] [place] - 2ND FLOOR OTHER Assessment No assessment recorded. Plan of Treatment Reminders Order Date Submit Date Provider Last Modified By Organization Details Last Modified Time Details Appointments None recorded. Lab None recorded. Referral None recorded. Procedures None recorded. Surgeries None recorded. Imaging None recorded. Medication Orders tramadol 50 mg tablet [address] [place] [address] , [address] [place], [address], 4 19:48:38 Patient TargetsNo targets recorded. Patient InstructionsNo instructions recorded. Reason for Referral None Reported. Problems Name Problem SNOMED Code Status Onset Date Resolution Date Notes Provider Name and Address Organization Details Recorded Time Falls 555548832 Active 2022 HANSEL DORANTES NP [address], [address], [place], [address], [facility] 3 12:56:45 Fracture of pelvis 33674069 Active 2022 HANSEL DORANTES NP [address], [address], [place], [address], [facility] 3 12:56:56 Fracture of foot 53106775 Active 2022 HANSEL DORANTES NP [address], [address], [place], [address], [facility] 3 12:57:14 Retention of urine 777271058 Active 2022 HANSEL DORANTES NP [address], [address], [place], [address], [facility] 3 12:57:25 Gastroesoph ageal reflux disease without esophagitis 061750293 Active 2022 HANSEL DORANTES NP [address], [address], [place], [address], [facility] 3 13:02:50 Anxiety 59189274 Active 2022 HANSEL DORANTES NP [address], [place], [address], [facility] 3 13:03:02 Insomnia 591472420 Active 2022 HANSEL DORANTES NP [address], [address], [place], [address], [facility] 3 13:03:10 Constipatio n 51857108 Active 2022 HANSEL DORANTES NP [address] [facility] [address], [address], [place], [address], [facility] 3 13:04:29 Hypokalemia 27598554 Active 2022 HANSEL DORANTES NP [address] [facility] [address], [address], [place], [address], [facility] 3 13:10:05 Fracture of phalanx of foot 63081073 Active 2022 Shereen Hilario MD [address] [facility] [address], [address], [place], [address], [facility] 3 22:56:52 Hypercalcem ia 52763079 Active 2022 Shereen Hilario MD [address], [address], [place], [address], [facility] 3 23:18:36 Acute urinary tract infection 589325998 Active 2022 HANSEL DORANTES NP [address], [place], [address], [facility] 3 11:01:09 Metabolic encephalopa thy 24814771 Active 2023 Britany Dunbar NP [address] [facility] [address], [address], [place], [address], [facility] 4 12:40:13 Folic acid deficiency 329235557 Active 2023 Britany Dunbar NP [address], [place], [address], [facility] 4 12:40:49 Adult failure to thrive syndrome 236125924 Active 2023 Shereen Hilario MD [address] [facility] [address], [address], [place], [address], [facility] 4 01:57:58 Compression fracture of thoracic vertebra 1448875671087 Active 2023 Shereen Hilario MD [address] [facility] [address], [address], [place], [address], [facility] 4 01:58:35 Hemorrhoids 73666367 Active 2023 Britany Dunbar NP [address] [facility] [address], [address], [place], [address], [facility] 4 14:32:59 Problem Notes None recorded. [...] rate Respiratory rate Body temperature Oxygen saturation Systolic And Diastolic Provider Name and Address Organization Details Last Updated DateTime 4 152.4 cm 16 kg/m2 18495.8 6 g 76 /min 18 /min 97.6 [degF] 96 % 124/68 mm[Hg] Britany Dunbar NP [address] [facility], [address], [place], [address], [facility] 4 12:05:52 Date Recorded Body height Body mass index (BMI) Body weight Heart rate Respiratory rate Body temperature Oxygen saturation Systolic And Diastolic Provider Name and Address Organization Details Last Updated DateTime 4 152.4 cm 16.1 kg/m2 81653.7 3 g 82 /min 18 /min 98.6 [degF] 98 % 124/68 mm[Hg] Shereen Hilario MD [address] [facility], [address], [place], [address], [facility] 4 21:23:27 Date Recorded Body height Body weight Body mass index (BMI) Heart rate Respiratory rate Body temperature Oxygen saturation Systolic And Diastolic Provider Name and Address Organization Details Last Updated DateTime 4 152.4 cm 11193.7 3 g 16.1 kg/m2 80 /min 17 /min 97.9 [degF] 97 % 118/70 mm[Hg] Britany Dunbar NP [address] [facility] [address] [facility], [address], [place], [address], [facility] 4 08:20:23 Date Recorded Body height Body weight Body mass index (BMI) Heart rate Respiratory rate Body temperature Oxygen saturation Systolic And Diastolic Provider Name and Address Organization Details Last Updated DateTime 4 152.4 cm 87146.7 3 g 16.1 kg/m2 77 /min 18 /min 98.1 [degF] 97 % 120/76 mm[Hg] Britany Dunbar NP [address] [facility], [address], [place], [address], [facility] 4 14:03:47 Date Recorded Body height Body weight Body mass index (BMI) Heart rate Respiratory rate Body temperature Oxygen saturation Systolic And Diastolic Provider Name and Address Organization Details Last Updated DateTime 4 152.4 cm 66973.5 7 g 16 kg/m2 70 /min 18 /min 98.2 [degF] 97 % 120/76 mm[Hg] Britany Dunbar NP [address] [facility] [address] [facility], [address], [place], [address], [facility] 4 16:08:36 Social History Question Answer Notes LastModified by Organizat ion Details LastModified Time Tobacco Smoking Status Former Smoker HANSEL DORANTES, JEREMY [address], [address], [place], [address], [facility] 08/26/2022 12:45:30 Do You Have An Advance Directive? Yes Information not available 08/26/2022 What Is Your Code Status? DNR/DNI Okay To Transfer To [facility] No Ivf, Art Nutrition, Or Dialysis Information not available 08/25/2023 Where Do You Live? Apartment Lives Home Alone, No Stairs Information not available 08/28/2022 Legal Guardian? No Informati on not available 08/28/2022 Do You Have A Medical Power Of Agricultural Extension Agent? Yes Information not available 08/28/2022 What Was [...] Recorded Time Td(adult) unspecified formulation 1 completed Marilyn peñaloza, [facility] 08/11/2023 15:56:45 Pneumococcal conjugate PCV20, polysaccharide WYL120 conjugate, adjuvant, PF 3 completed [facility] 08/11/2023 15:57:18 SARS-COV-2 (COVID-19) vaccine, UNSPECIFIED 1 completed [facility] 08/11/2023 15:58:11 SARS-COV-2 (COVID-19) vaccine, UNSPECIFIED 2 completed [facility] 08/11/2023 15:58:19 SARS-COV-2 (COVID-19) vaccine, UNSPECIFIED 2 completed [facility] 08/11/2023 15:58:32 Past Encounters Encounter ID Performer Location Encounter Start Date Encounter Closed Date Diagnosis/Indication Diagnosis SNOMED-CT Code Diagnosis ICD10 Code Diagnosis IMO Codes Diagnosis Note [id number] HANSEL DORANTES NP [address] [address] 08/26/2022 10:52:45 08/28/2022 16:11:11 Fracture of pelvis 09999973 S32.9XXA PT OT eval and treatoxyco done 5 mg q4hr prn Retention of urine 49766 4002 R33.9 mcdonald cathflomax 0.4 mg hsdoxycycl ine 50 mg bid, no end date Anxiety 26245718 F41.9 ativan 1 mg bid prn to 4/3seroque l 50 mg bid Gastroesop hageal reflux disease without esophagitis 817099057 K21.9 pepcid 20 mg bidprotoni x 40 mg daily Insomnia 474661661 G47.0 0 temazapam 15 mg hs prn [place] 412856759 R29.6 PT OT eval and treatfall precaution sfrequent safety checks Constipation 31161804 K5 9.00 miralax dailycolac e daily Hypokalemia 58853857 E87 .6 monitor labspotass ium/bicarb 25 meq bid MD CHERYL Quesada MICHELLE [address] [place] [address] 08/28/2022 18:30:09 08/31/2022 14:39:30 Fracture of pelvis 89111544 S32.9XXD Very deconditio irish and difficulty moving due to pain.Archie nue oxycodone 5 mg q 4 hrs prn and APAP 650 mg q 6 hrs prn.Needs PT/OT for strengthen ing, balance, gait training, safety and function.C ontinue fall precaution s.Monitor for safety.F/U with ortho as planned Retention of urine 81116 4002 R33.8 Continue mcdonald cath until pt. is more mobile.Con tinue tamsulosin 0.4 mg qd and doxycyclin e 50 mg BID for UTI prophylaxi s.Plan voiding trial for when pt able to ambulate independen tly. Anxiety 13420349 F41.1 Mood good tonight.Co ntinue escitalopr am 5 mg qd, seroquel 50 mg BID, hydroxyzin e 15 mg qhs, temazepam 15 mg qhs prn, and lorazepam 0.5 mg BID prn.Monito r mood.Psych consult prn. Gastroesop hageal reflux disease without esophagitis 285145507 K21.9 Continue famotidine 20 mg BID and pantoprazo le 40 mg qd.Monitor sxs. Insomnia 347043440 G47.0 0 Meds as above.Becca tor sleep patterns. Falls 514529898 R29.6 PT/OT as above. Constipation 60051336 K5 9.09 Continue lactulose 30 ml qd, miralax 17 gms qd, and colace 100 mg qd.Use bowel protocol prn.Monito r bowel function. Hypokalemia 42370008 E87 .6 Continue K+ as above.Becca tor labs. Fracture o f phalanx of foot 09303672 S92.592D Continue to wear boot.Ambul ate as tolerated. PT/OT as above.F/U with ortho as planned. Renal tubu lar acidosis 2147478 N25.89 Continue potassium bicarb 25 meq BID.Monito r labs.F/u with renal. Mild prote in-calorie malnutrition (weight for age 75-89 percent of standard) 388626787 E44.1 Underwt,En courage healthy eating.Mon itor wts and intake.Con family health nurse practitioner supplement s.Dieticia n consult. Villous ad enomatous polyp of colon 915096689 K63.5 Hx of precancero us polyps.Pt doesn't plan on doing f/u colonoscop ies.Monito r bowel function. Hypercalcemia 88752248 E 83.52 PTH WNL in 09/2021Moni tor Anemia 698283068 D64.89 With marked drop in hgb since initial fall. GI consult inpt recommende d colonoscop y, but pt refuses. She says that even if she had colon CA she wouldn't do anything about it.It seems more likely that drop is due to bleeding from fx.Continu e FeSO4 325 mg qd.Monitor hgb and transfuse for hgb <7 [id number] HANSEL DORANTES NP [address] [address] 09/02/2022 12:27:02 09/04/2022 15:30:57 Fracture of phalanx of foot 57331174 S92.592D Ambulate as tolerated. PT/OT as above.F/U with ortho as planned. Fracture of pelvis 47277 009 S32.9XXD PT OT eval and treatoxyco done 5 mg q4hr prn Constipation 26252801 K5 9.09 miralax dailycolac e dailylactu lose daily [id number] HANSEL DORANTES NP [address] [address] 09/04/2022 10:58:48 09/08/2022 12:30:49 Fracture of pelvis 69210522 S32.9XXD PT OT eval and treatoxyco done 5 mg q4hr prnbowel protocol Fracture o f phalanx of foot 48552402 S92.592D Ambulate as tolerated. PT/OT as above.F/U with ortho as planned. Retention of urine 65414 4002 R33.8 mcdonald cath-remov ed, voiding wellflomax 0.4 mg hs Acute urin andrew tract infection 729222486 N39.0 levofloxin 250 mg daily to 09/133 HANSEL DORANTES NP [address] [address] 09/07/2022 14:40:54 09/09/2022 12:32:56 Fracture of pelvis 09649441 S32.9XXD PT OT eval and treatoxyco done 5 mg q4hr prnbowel protocol Fracture of foot 0216079 5 S92.902D PT OT eval and treatoxyco done 5 mg q4hr prnbowel protocol Fracture o f phalanx of foot 31342588 S92.592D Ambulate as tolerated. PT/OT as above.F/U with ortho as planned. [id number] HANSEL DORANTES NP [address] [address] 09/10/2022 10:30:47 09/16/2022 15:52:39 Anxiety 12119873 F41.1 ativan 1 mg bid prnseroque l 50 mg bidAIMS 0psych prn Insomnia 700707834 G47.0 0 temazapam 15 mg hs prn Fracture of pelvis 58646 009 S32.9XXD PT OT eval and treatoxyco done 5 mg q4hr prnbowel protocol [id number] HANSEL DORANTES NP [address] [address] 09/16/2022 12:50:19 09/22/2022 11:59:18 Fracture of pelvis 55369442 S32.9XXD PT OT eval and treatoxyco done 5 mg q6hr prnbowel protocol Anxiety 37995878 F41.1 ativan 1 mg bid prnseroque l 50 mg bidAIMS 0psych prn [id number] HANSEL DORANTES NP [address] [address] 09/18/2022 12:19:47 09/22/2022 12:53:50 Fracture of pelvis 21133740 S32.9XXA PT OT eval and treatoxyco done 5 mg q6hr prnadvil 400 mg q8hr prn Retention of urine 04917 4002 R33.9 mcdonald cath-remov ed voiding wellflomax 0.4 mg hs Anxiety 61689354 F41.9 ativan 1 mg bid prn to 4/20seroqu el 50 mg bidlexapro 10 mg dailyhydro xyzine 25 mg hspsych prn Gastroesop hageal reflux disease without esophagitis 598479369 K21.9 pepcid 20 mg bidprotoni x 40 mg daily Insomnia 430133476 G47.0 0 temazapam 15 mg hs prn [place] 085083529 R29.6 PT OT eval and treatfall precaution sfrequent safety checks Constipation 22647213 K5 9.00 miralax dailycolac e daily Hypokalemia 83914038 E87 .6 monitor labspotass ium/bicarb 25 meq bid [id number] HANSEL DORANTES NP [address] [address] 09/21/2022 11:40:35 09/24/2022 15:19:51 Fracture of pelvis 83035429 S32.9XXA PT OT eval and treatoxyco done 5 mg q6hr prnadvil 400 mg q8hr prn Retention of urine 02062 4002 R33.9 flomax 0.4 mg hs Anxiety 25163753 F41.9 ativan 1 mg bid prn to eroqu el 50 mg bidlexapro 10 mg dailyhydro xyzine 25 mg hspsych prn Gastroesop hageal reflux disease without esophagitis 492547075 K21.9 pepcid 20 mg bidprotoni x 40 mg daily Insomnia 804128983 G47.0 0 temazapam 15 mg hs prn [place] 310643342 R29.6 PT OT eval and treatfall precaution sfrequent safety checks Constipation 90009593 K5 9.00 miralax dailycolac e daily Hypokalemia 23833966 E87 .6 monitor labspotass ium/bicarb 25 meq bid [id number] Britany Dunbar NP [facility] [address] [place] [address] 08/25/2023 12:05:06 08/31/2023 10:07:00 Fracture of pelvis 75173733 S32.9XXA hx ofadvil 400 mg q8hr prnmonitor Anxiety 64074882 F41.9 contativan 1 mg bid prn x 14 dyas and reeval ( on at home)seroq uel 25 mg bidpsych prn Gastroesop hageal reflux disease without esophagitis 386481902 K21.9 pepcid 20 mg bidprotoni x 40 mg dailymonit or Insomnia 128215728 G47.0 0 temazepam 15 mg hs prnmonitor [place] 191745154 R29.6 hx ofplan:mon itor labsPT OT eval and treatfall precaution sfrequent safety checks Sepsis due to urinary tract infection 850365105 N39.0 levofloxic in 750 mg po daily x 6 more dosesadd probiotic 1 tab po bidmonitor cbc, bmp weeklymoni tor vitals Metabolic encephalopathy 98201180 G93.41 due to sepsismoni tor for improvemen t and sequelae Folic acid deficiency 19 0182469 E53.8 found to have folic acid deficiency in hosp 08/20/23fol ic acid 1 mg po dailymonit or Hypothermia 070670940 T6 8.XXXA [facility] Clostridio ides difficile infection 623428811 A04.72 [facility] to [facility], still having diarrheava ncomycin 125 mg po cap po q 6 hours until 08/28add probiotic 1 tab po bidmonitor for sequelaemo nitor vitals, s/s of dehydratio n etc.... Retention of urine 14138 4002 R33.9 hx of urinary retention and [...] tor Adult fail ure to thrive syndrome 434661242 R62.7 hx of multiple admissions in recent pastweight of 81 lbsstartwe ight weeklydiet ician to consult for increasing calorie needsconsi keven remeron if needed to increase calories and promote healingmon itor Abrasion 429786645 T14.8 XXA denuded skin to left upper thighcontz eroform and foam dressing dailymonit or [id number] [facility] [address] 08/30/2023 21:18:07 09/06/2023 09:10:49 Sepsis due to urinary tract infection 392315612 A41.89 Completing course of abxs with levofloxac in 750 mg qd, today.Cont inue probiotic BID until 08/31.Monit or sxs and labs Metabolic encephalopathy 54918412 G93.41 Back to baseline.M onitor Hypothermia 112321758 T6 8.XXXA Resolved.M onitor temp Clostridio ides difficile infection 951310294 A04.72 Stools improving. Completed vancomycin 125 mg q 6 hrs yesterday. Continue probiotic BIDMonitor for recurrence . Folic acid deficiency 19 7322870 E53.8 Continue folic acid 1 mg qdMonitor Anxiety 43089191 F41.1 Mood sl. anxious tonight.Co ntinue seroquel 25 mg BID, temazepam 15 mg qhs prn, and lorazepam 1 mg BID prn. Reeval in 14 days.Monit or mood.Consu lt psych prn Gastroesop hageal reflux disease without esophagitis 645787629 K21.9 No current sxs.Contin ue famotidine 20 mg BID and pantoprazo le 40 mg qdMonitor sxs Insomnia 192227961 G47.0 0 As above.Becca tor sleep patterns. Falls 011278719 R29.6 Very deconditio irish after a series of illnesses. Needs PT/OT for strengthen ing, balance, gait training, safety and function.C ontinue fall precaution s.Monitor for safety. Retention of urine 18740 4002 R33.8 Was going to get mcdonald removed today, but didn't get done in the AM and pt preferred not to have it taken out until tomorrow morning.OK to wait.When removed will monitor PVRs and reinsert if needed.If need to be reinserted would add tamsulosin and consult uro. Adult fail ure to thrive syndrome 456975991 R62.7 Wt stable from last admission, but still very underwt.Co ntinue meds as above.Cons ider nutritiona l supplement . Abrasion 071337847 T14.8 XXA Not examined today.Cont inue local care as ordered.Faraz hansen. Compressio n fracture of thoracic vertebra 2758772937 104 S22.040D With acute fx of T4 [...] knows that is bad for her stomach. [id number] Britany Dunbar NP [address] [place] [address] 09/03/2023 08:05:05 09/07/2023 09:20:23 Sepsis due to urinary tract infection 351835340 A41.89 Completed course of abxs with levofloxac in 750 mg and probioticM onitor sxs and labs Metabolic encephalopathy 19030531 G93.41 Back to baseline with congitionM onitor Clostridio ides difficile infection 042318691 A04.72 Stools improving, but still having loose stools. technicall y off precaution s now but may leave in place per facility dueComplet ed vancomycin 125 mg q 6 hrsMonitor for recurrence . Folic acid deficiency 19 9292876 E53.8 Continuefo lic acid 1 mg qdMonitor Anxiety 04651963 F41.1 Mood sl. anxious tonight.Co ntinuesero quel 25 mg BIDtemazep am 15 mg qhs prn, and lorazepam 1 mg BID prn. Reeval in 14 days on 4/2Monitor mood.Consu lt psych prn Gastroesop hageal reflux disease without esophagitis 097238832 K21.9 No current sxs.Contin uefamotidi ne 20 mg BIDpantopr azole 40 mg qdMonitor sxs Insomnia 672675225 G47.0 0 As above.Becca tor sleep patterns. Falls 947678668 R29.6 Very deconditio irish after a series of illnesses. Needs PT/OT for strengthen ing, balance, gait training, safety and function.C ontinuefal l precaution sneeds encouragem ent for self care here with support in preparatio n for home.Monit or for safety. Retention of urine 72785 4002 R33.8 resolvedfo margarita removed and urinating large amounts Adult fail ure to thrive syndrome 258434584 R62.7 Wt stable from last admission, but still very underwt.Co ntinue meds as above.Cons ider nutritiona l supplement and protein Abrasion 607726334 T14.8 XXA Not examined today.Cont inue local care as ordered.Faraz hansen. Compressio n fracture of thoracic vertebra 8519288078 104 S22.040D With acute fx of T4 and chronic fxs of T8 and T11. Manageable at home with OTC meds, but bed here is causing increased pain, seems better todaycontt ramadol 50 mg BID prn. (not using or needing here over last few days)APAP 650 mg q 4 hrs prnrefuses ibuprofen 400 mg q 8 hrs prn. as it bothers her stomach [id number] Britany Dunbar NP [facility] [address] 09/06/2023 14:02:55 09/09/2023 10:04:52 Sepsis due to urinary tract infection 742203036 A41.89 Completed course of abxs with levofloxac in 750 mg and probioticM onitor sxs and labs Metabolic encephalopathy 83717038 G93.41 Back to baseline with congitionM onitor Clostridio ides difficile infection 832498188 A04.72 Stools improving, but still having loose stools.She is technicall y off precaution sCompleted vancomycin 125 mg q 6 hrs therapyMon itor for recurrence . Folic acid deficiency 19 9762327 E53.8 Continuefo lic acid 1 mg qdMonitor Anxiety 30440216 F41.1 Mood very anxious as getting closer to dischargeC ontinueser oquel 25 mg BIDtemazep am 15 mg qhs prnlorazep am 1 mg BID prn. Reeval in 14 days on 09/19Monito r mood.Consu lt psych prn Gastroesop hageal reflux disease without esophagitis 822237552 K21.9 No current sxs.Contin uefamotidi ne 20 mg BIDpantopr azole 40 mg qdMonitor sxs [place] 258334351 R29.6 remains very deconditio irish after a series of illnesses. Needs PT/OT for strengthen ing, balance, gait training, safety and function.C ontfall precaution sneeds encouragem ent for self care here with support in preparatio n for home.Monit or for safety. Adult fail ure to thrive syndrome 812597059 R62.7 Wt stable from last admission, but still very underwt.Co ntinue meds as above.Cons ider nutritiona l supplement and protein Abrasion 194090386 T14.8 XXA Not examined today.Cont inue local care as ordered.Faraz jade. Compressio n fracture of thoracic vertebra 1965272925 104 S22.040D With acute fx of T4 and chronic fxs of T8 and T11. Manageable at home with OTC meds, but bed here is causing increased pain, seems better todaycontt ramadol 50 mg BID prn. (not using or needing here over last few days)APAP 650 mg q 4 hrs prnrefuses ibuprofen 400 mg q 8 hrs prn. as it bothers her stomach Hemorrhoids 61347240 K64 .9 pt with hemorrhoid s chronicall y with reoccuranc e with loose stoolsh/h stable, will trend with labs tomreports using preparatio n h with good effectmoni tor Hypokalemia 28961768 E87 .6 acute hypkalemia 2.7 from labs 4/1replete with potassium 40 meq po q 6 hours x 5 dosesreche ck labs in am-underst anding she will be partially repleted but would like to go home if enough to be stablemoni tor [id number] [facility] [address] 09/08/2023 16:07:33 09/13/2023 09:34:40 Hypokalemia 31137514 E87.6 resolved wtih replacemen t to 3.9acute hypkalemia 2.7 from labs 4/1replete with potassium 40 meq po q 6 hours x 5 dosesfu with pcp outpt Sepsis due to urinary tract infection 604876111 A41.89 Completed course of abxs with levofloxac in 750 mg and probioticw bc improvingM onitor sxs and labs outpt with pcp Clostridio ides difficile infection 407110007 A04.72 Stools improving, but still having semi-loose stools.off precaution sCompleted vancomycin 125 mg q 6 hrs therapyMon itor for recurrence outpt with pcp Anxiety 12372692 F41.1 Mood very anxious as getting closer to dischargeC ontinueser oquel 25 mg BIDtemazep am 15 mg qhs prnlorazep am 1 mg BID prnMonitor mood outpt with pcpConsult psych prn outpt Metabolic encephalopathy 17918596 G93.41 Back to baseline with cognitionM onitor outpt with pcp Folic acid deficiency 19 7254021 E53.8 folic acid 1 mg qdMonitor with pcp outpt Gastroesop hageal reflux disease without esophagitis 821723237 K21.9 No current sxs.Contin uefamotidi ne 20 mg BIDomepraz ole 40 mg qd(changed from pantoprazo le)Monitor sxs outpt with pcp Falls 184316478 R29.6 remains very deconditio irish after a series of illnesses. Needs PT/OT for strengthen ing, balance, gait training, safety and function as willing and needed outptContf all precaution s and safety precaution s in homeneeds encouragem ent for self careMonito r for safety with vna and pcp oupt Adult fail ure to thrive syndrome 931831649 R62.7 Wt stable from last admission, but still very underwt.Co ntinue meds as above.Cons ider nutritiona l supplement and protein outpt also Compressio n fracture of thoracic vertebra 5320111104 104 S22.040D With acute fx of T4 and chronic fxs of T8 and T11. Manageable at home with OTC meds, but bed here is causing increased pain, seems better nowAPAP 650 mg q 4 hrs prnnote: refuses ibuprofen 400 mg q 8 hrs prn. as it bothers her stomachmon itor outpt with pcp Hemorrhoids 57351201 K64 .9 pt with hemorrhoid s chronicall y with reoccuranc e with loose stoolsh/h stablerepo rts using preparatio n h with good effectmoni tor outpt with pcp Leukocytosis [id number] D 72.829 resolvingf u with pcp outptmonit [...] Name 09/13/2023 2 [place]) [id number] [facility] [id number] [facility] 09/06/2023 1 [place]: [facility] Lisa Matteo [facility] [id number] 1 [facility] Notes Date Note Type Note Provider Name and Address Organization Details Recorded Time 08/25/2023 text/html Pt is seen for an initial intake summary. 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, depression/anxiety, insomnia, hypokalemia, constipation/diarrhea, hx of villous adenoma of colon, hx of kidney stones, and hypercalcemia.72y female admitted to [facility] for rehab after [place] [facility] [place] after being found by [...] art hy 08/25/23 Britany Dunbar NP [address], [address], [place], [address], [facility] 08/26/2023 17:31:36 08/30/2023 text/html This is a 72 yo woman who is here for rehab after several recent hospitalizations.Most recently 08/19- at [facility] [place]rose[place].Prior to that 08/13-08/18 for c. diff and hypokalemia.And before that 07/18-07/20 for dizziness with fall and compression fx, with [facility] stay 07/20- during which she was also txed for a UTI. She presented to the [facility] on 08/19 after her WINE STEWARD/STEWARDESS found her on the ground for unknown [...] mid inferolateral segments similar to prior exam. PSYCHOLOGICAL AIDE eval showed no signs of aspiration and [...] stones, and hypercalcemia. Shereen Hilario MD [address], [address], [place], [address], [employer] 09/03/2023 01:59:11 09/03/2023 text/html This is a [...] without difficulty voiding. She was seen by psych sales specialist and no medication changes at this time. Social work is trying to align services up for her discharge next week. Note: Recent hospitalizations:08/19- at [facility] [place]rose[place].08/13-08/18 for c. diff and hypokalemia.07/18-07/20 for dizziness with fall and compression fx, with [facility] stay 07/20- during which she was also txed for a UTI. Britany Dunbar NP [address], [address], [place], [address], [employer] 09/03/2023 11:16:49 09/06/2023 text/html This is a [...] labs tomorrow am. Note: Recent hospitalizations:08/19- at [facility] [place]rose[place].08/13-08/18 for c. diff and hypokalemia.07/18-07/20 for dizziness with fall and compression fx, with [facility] stay 07/20- during which she was also txed for a UTI. Britany Dunbar, JEREMY [address] [place] [address], [address], [place], [address], [facility] 09/06/2023 14:36:11 09/08/2023 text/html Pt seen for [...] feet in hallway. 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 She will fu with Dr. Banks and call for fu appt already initiated by nursing. She plans to dc with caregiver friend at 0900 on 09/08. While at [facility]: She completed her course of cdiff [...] her on dc. Note: Recent hospitalizations:08/19- at [facility] [place].08/13-08/18 for c. diff and hypokalemia.07/18-07/20 for dizziness with fall and compression fx, with [facility] stay 07/20- during which she was also txed for a UTI. Britany Manjinder, JEREMY [address], [address], [place], [address], [facility] 09/08/2023 16:54:02 OBGyn Episode No OBEpisode recorded.
== END 2025-05-09 09:48 | disposition home or self-care (01) ==
LOC: HO.HUSH 09:20
PROVIDERS: PCP Internal Medicine; Visit Provider Nurse Practitioner Family
DX: R33.9 Retention of urine, unspecified (principal)

== ENCOUNTER → 2025-05-09 09:20 | Outpatient (BNVA) | payer MEDICARE, MEDICAID, SELFPAY | PROVIDERS: PCP Internal Medicine; Visit Provider Nurse Practitioner Family | DX: R33.9 Retention of urine, unspecified (principal) | CPT/HCPCS: 51700; 51798 ==